=== PATIENT | female | born 1955 | race Two or more races ===

== ENCOUNTER → 2020-08-01 08:15 | Outpatient (BNVA) | payer MEDICARE, MEDICAID, SELFPAY | PROVIDERS: PCP Internal Medicine; Referring Provider Internal Medicine; Visit Provider Physician Assistant | DX: E66.9 Obesity, unspecified (principal); Z68.30 Body mass index [BMI] 30.0-30.9, adult; Z98.84 Bariatric surgery status | CPT/HCPCS: Q3014 ==

== ENCOUNTER → 2020-09-03 08:18 | Outpatient (BNVA) | payer MEDICARE, MEDICAID, SELFPAY | PROVIDERS: PCP Internal Medicine; Referring Provider Internal Medicine; Visit Provider Physician Assistant | DX: Z76.89 Persons encountering health services in other specified circumstances (principal) ==

== ENCOUNTER → 2020-11-21 08:43 | Outpatient (BNVA) | payer MEDICARE, MEDICAID, SELFPAY | PROVIDERS: PCP Internal Medicine; Visit Provider Internal Medicine Endocrinology, Diabetes & Metabolism | DX: Z13.89 Encounter for screening for other disorder (principal) | CPT/HCPCS: Q3014 ==

== ENCOUNTER → 2020-11-28 07:53 | Outpatient (BNVA) | payer MEDICARE, MEDICAID, SELFPAY | PROVIDERS: PCP Internal Medicine; Visit Provider Physician Assistant | DX: E66.9 Obesity, unspecified (principal); Z68.31 Body mass index [BMI] 31.0-31.9, adult; Z90.3 Acquired absence of stomach [part of]; Z71.3 Dietary counseling and surveillance | CPT/HCPCS: Q3014 ==

== ENCOUNTER → 2021-01-23 11:59 | Outpatient (BNVA) | payer MEDICARE, MEDICAID, SELFPAY | PROVIDERS: PCP Internal Medicine; Visit Provider Physician Assistant | DX: E66.9 Obesity, unspecified (principal); Z90.3 Acquired absence of stomach [part of] | CPT/HCPCS: Q3014 ==

== ENCOUNTER → 2021-02-11 10:01 | Outpatient (BNVA) | payer MEDICARE, MEDICAID, SELFPAY | PROVIDERS: PCP Internal Medicine; Referring Provider Internal Medicine; Visit Provider Physician Assistant | DX: E66.9 Obesity, unspecified (principal); Z68.32 Body mass index [BMI] 32.0-32.9, adult; Z90.3 Acquired absence of stomach [part of] | CPT/HCPCS: Q3014 ==

== ENCOUNTER 2021-03-02 10:36 | Outpatient (REF) | payer MEDICARE, MEDICAID, SELFPAY ==
[2021-03-02 11:44] LABS: MANUAL DIFF FLAG NO
[2021-03-02 11:53] LABS: Basophils Absolute Auto 0.1 X10*3/uL (0.0-0.2); Basophils Percent Auto 1.6 % (0-2); Eosinophils Absolute Auto 0.1 X10*3/uL (0.0-0.4); Eosinophils Percent Auto 3.2 % (0-4); Hematocrit 42.4 % (37-47); Hemoglobin 13.5 g/dl (12.0-16.0); Imm Gran Abs Auto 0.01 X10*3/uL (0.00-0.03); Imm Gran Pct Auto 0.3 % (0.0-0.4); Lymphocytes Absolute Auto 1.6 X10*3/uL (1.2-4.9); Lymphocytes Percent Auto 50.8 % (20-40); Mean Corpuscular HGB Conc 31.8 g/dl (31.0-35.0); Mean Corpuscular Hemoglobin 27.4 pg (27.0-33.0); Mean Corpuscular Volume 86.2 fL (80-98); Mean Platelet Volume 10.4 fL (9.4-12.3); Monocytes Absolute Auto 0.2 X10*3/uL (0.1-1.2); Monocytes Percent Auto 5.8 % (2-11); Neutrophils Absolute Auto 1.2 X10*3/uL (2.0-8.3); Neutrophils Percent Auto 38.3 % (45-73); Platelet Count 225 X10*3/uL (160-400); Red Blood Count 4.92 X10*6/uL (4.20-5.50); Red Cell Distribution Width 12.7 % (11.0-16.0); White Blood Count 3.1 X10*3/uL (4.8-10.8)
[2021-03-02 11:58] LABS: Estimated Average Glucose 163 mg/dL; Hemoglobin A1c % 7.3 %
[2021-03-02 12:16] LABS: Alanine Aminotransferase 41 U/L (0-31); Albumin Level 4.1 g/dL (3.5-5.0); Alkaline Phosphatase 112 U/L (39-117); Anion Gap 10 (12-20); Aspartate Amino Transferase 25 U/L (5-31); Bilirubin Total 1.2 mg/dL (0.0-1.0); Blood Urea Nitrogen 14 mg/dL (9-16); Calcium 9.2 mg/dL (8.4-10.2); Carbon Dioxide 30 mmol/L (22-29); Chloride 107 mmol/L (96-108); Cholesterol 204 mg/dL; Estimated Glomerular Filt Rate > 60; Glucose Random 156 mg/dL (60-115); HDL Cholesterol 56 mg/dL; LDL Cholesterol Calculated 127 mg/dl; Potassium 4.2 mmol/L (3.3-5.1); Sodium 143 mmol/L (135-145); Total Protein 6.6 g/dL (6.5-8.0); Triglycerides 105 mg/dL
[2021-03-02 12:27] LABS: Ferritin 88 ng/mL (10-250); TSH reflex Free T4 1.93 uIU/mL (0.32-4.0); Vitamin D 25-OH Total 23.9 ng/mL (>30)
[2021-03-02 12:31] LABS: Free T4 (Free Thyroxine) 0.93 ng/dL (0.71-1.85); Thyroid Stimulating Hormone 1.94 uIU/mL (0.32-4.0)
[2021-03-02 12:39] LABS: Vitamin B12 389 pg/mL (200-900)
[2021-03-02 12:45] LABS: Folate 7.7 ng/mL (> or = 4.0); Vitamin B12 375 pg/mL (200-900)
[2021-03-02 15:09] LABS: Creatinine Urine 30.13 mg/dL; Microalbum/Creatinine Ratio Ur 43.1 ug/mg cr
[2021-03-03 18:32] LABS: Insulin Level Total 7.3 uIU/mL
[2021-03-03 20:06] LABS: LDL Cholesterol Direct 132 mg/dL (<100)
[2021-03-04 10:36] LABS: Calcium (PTHI) 9.3 mg/dL (8.6-10.4); PTHI 75 pg/mL (14-64)
[2021-03-04 23:42] LABS: Zinc 70 mcg/dL (60-130)
[2021-03-06 00:47] LABS: Vitamin A 49 mcg/dL (38-98)
[2021-03-07 13:41] LABS: Vitamin B1 7 nmol/L (8-30)
== END 2021-03-02 10:37 | disposition home or self-care (01) ==
LOC: HO.LAB 10:36
PROVIDERS: Absent Provider Physician Assistant; PCP Internal Medicine; Visit Provider Internal Medicine Endocrinology, Diabetes & Metabolism
DX: E11.42 Type 2 diabetes mellitus with diabetic polyneuropathy (principal); E66.9 Obesity, unspecified; Z90.3 Acquired absence of stomach [part of]
CPT/HCPCS: 36415; 80053; 80061; 82043; 82306; 82607; 82728; 82746; 83036; 83525; 83721; 83970; 84425; 84439; 84443; 84590; 84630; 85025; 86140

== ENCOUNTER 2021-04-11 22:29 | Emergency (ER) | payer MEDICARE, MEDICAID, SELFPAY ==
[2021-04-11 22:45] VITALS: BP 129/79; PULSE 93; RESP 18; TEMP 37.4; O2SAT 100; BMI 30.6
--- NOTE | 2021-04-12 00:19 | ED_ITS ---
HPI - General Adult General Chief complaint: Extremity Problem Stated complaint: rash Time Seen by Provider: 04/11/21 22:51 Source: patient Mode of arrival: EMS Limitations: no limitations History of Present Illness HPI narrative: Patient comes to the emergency room complaining of diffuse rash and hives for 2 days. Patient states that to her knowledge, she has no allergies. Patient states the only thing that she has eaten new was chives. Patient complaining of itchiness in her eyes in her chest, armpits, abdomen, lower extremities. Patient denies shortness of breath, no oropharyngeal edema or foreign body sensation. Patient denies any medications, no new detergents. Patient is only 1 that has hives at home. Related Data Home Medications Medication Instructions Recorded Confirmed chlorthalidone 25 mg tablet 25 mg PO DAILY 08/01/20 02/11/21 enalapril maleate 20 mg tablet 20 mg PO QAM 08/01/20 02/11/21 loratadine 10 mg tablet 10 mg PO QAM 08/01/20 02/11/21 nebivolol 5 mg tablet 5 mg PO DAILY 08/01/20 02/11/21 pregabalin 75 mg capsule 75 mg PO BEDTIME 08/01/20 02/11/21 albuterol sulfate 90 mcg/actuation 2 puff PO Q4-6H PRN 11/21/20 02/11/21 aerosol inhaler blood sugar diagnostic #10 ea 11/21/20 02/11/21 chlorpromazine 200 mg tablet 200 mg PO tab 11/21/20 02/11/21 fluticasone propionate 110 INHALATION 11/21/20 02/11/21 mcg/actuation HFA aerosol inhaler Previous Rx's Medication Instructions Recorded dulaglutide 1.5 mg/0.5 mL 1.5 mg SUBCUT QWEEK 30 Days #2.5 ml 11/21/20 subcutaneous pen injector ezetimibe 10 mg tablet 10 mg PO QAM 90 Days #90 tab 11/21/20 metformin 1,000 mg tablet 1,000 mg PO BID 30 Days #60 tab 11/21/20 rosuvastatin 40 mg tablet 40 mg PO DAILY 90 Days #90 tab 11/21/20 sucralfate 100 mg/mL oral 10 ml PO BID #420 ml 01/23/21 suspension calcium carbonate-vitamin D3 600 1 tab PO BID #60 tab 03/03/21 mg (1,500 mg)-800 unit tablet cholecalciferol (vitamin D3) 50 50 mcg PO DAILY #30 cap 03/03/21 mcg (2,000 unit) capsule [id number]-ads-[id number] acid 0.4 1 tab PO DAILY #30 tab 03/16/21 mg-lycopene 300 mcg-lutein 250 mcg tablet famotidine [Pepcid] 40 mg PO DAILY #4 tab 04/12/21 prednisone 50 mg PO DAILY #4 tab 04/12/21 Allergies Allergy/AdvReac Type Severity Reaction Status Date / Time pollen Allergy Unknown shortness Uncoded 02/26/13 00:00 of breath Pt states no food/medication Allergy Unknown Anaphylaxis Uncoded 02/11/21 10:14 a Review of Systems Review of Systems: Constitutional : No Weight loss, No Fever, No Chills, No Night Sweats, No Fatigue, No Malaise ENT/Mouth : No Hearing loss, No Ear Pain, No Nasal Congestion, No Sinus Pain, No Hoarseness, No sore throat, No Rhinorrhea, No Swallowing Difficulty Eyes: No Eye Pain, No Swelling, No Redness, No Foreign Body, No Discharge, No Vision Changes Cardiovascular : No Chest Pain, No SOB, No Dyspnea on Exertion, No Orthopnea, No Edema, No Palpitations Respiratory : No Cough, No Sputum, No Wheezing, No Smoke Exposure, No Dyspnea Gastrointestinal : No Nausea, No Vomiting, No Diarrhea, No Constipation, No abdominal Pain, No Hematochezia, No Melena Genitourinary : no irregular bleeding, No Dysuria, No Urinary Frequency, No Hematuria, No Urinary Incontinence, No Urgency, No Flank Pain, No Urinary Flow Changes, No Hesitancy Musculoskeletal : No joint pain, No Myalgias, No Joint Swelling Skin : Hives Neuro : No Weakness, No Numbness, No Paresthesias, No Loss of Consciousness, No Dizziness, No Headache Psych : No Anxiety/Panic, No Depression, No SI/HI/AH/VH, No Social Issues, Heme/Lymph: No Bruising, No Bleeding,No Lymphadenopathy Endocrine : No Polyuria, No Polydipsia, No Temperature Intolerance PMFSH Past Medical History Medical History Diabetes type 2, controlled Diabetic polyneuropathy associated with type 2 diabetes mellitus Dyslipidemia History of diverticulosis Hx of diverticulitis of colon Hypertension Vitamin D deficiency Surgical History History of carpal tunnel release History of sleeve gastrectomy Hx of cholecystectomy Hx of colonoscopy Hx of excision of mass Hx of foot surgery Hx of tubal ligation Family History Family History (Updated 07/31/20 @ 09:26 by Kalpana Lyon MA) Father Hypertension Mother No problems noted. Son No problems noted. Son No problems noted. Daughter Hypertension Asthma Obesity Muscle spasm Acute depression Sister No problems noted. Sister No problems noted. Brother No problems noted. Brother No problems noted. Brother No problems noted. Brother No problems noted. Brother No problems noted. Social History Social History (Updated 07/31/20 @ 09:27 by Kalpana Lyon MA) Alcohol intake: never Advance Directives: No Advance Directives Information Provided: Yes Patient : No Physical Exam Vital Signs: Vital Signs: Last Vital Signs Temp 99.3 F 04/11/21 22:45 Pulse 93 04/11/21 22:45 Resp 18 04/11/21 22:45 BP 129/79 04/11/21 22:45 Pulse Ox 100 04/11/21 22:45 Body Mass Index 30.6 Appearance: Alert. Oriented X3. No acute distress. Eyes: Pupils equal, round and reactive to light. ENT: Pharynx normal. No angioedema Neck: Normal inspection. Neck supple. No lymph nodes noted. No crepitus CVS: Normal heart rate and rhythm. Pulses normal. Normal S1 and S2 Respiratory: No respiratory distress. Breath sounds normal. No Wheezing. No rales Abdomen: Soft and nontender. No rigidity. No distention. good BS x4 Skin: Skin warm and dry. Hives in upper and lower extremities, chest back, patient has multiple superficial abrasions due to scratching Extremities: No lower extremity edema. No lower extremity edema. No Lacerations. No Rash Neuro: Oriented X 3. No motor deficit. No sensory deficit. Moving all exter mities. No slurred speech. Course Course Course Narrative: After 1 dose of steroids, Pepcid, patient to home, feels better, still has hives. Patient was given an additional dose of Solu-Medrol with hives improving. Residual hives. Patient will be sent home with a prescription of prednisone for the next couple of days. Unclear what the patient is allergic to. Discharge Plan Discharge Clinical Impression: Hives Patient Disposition: Home, Self-Care Instructions: Urticaria (ED) Additional Instructions: Please follow-up with your primary care physician tomorrow. If you have any worsening or new symptoms, please return to the emergency room or call 911 Prescriptions: New prednisone 50 mg tablet 50 mg PO DAILY Qty: 4 RF: 0 famotidine [Pepcid] 40 mg tablet 40 mg PO DAILY Qty: 4 RF: 0 No Action calcium carbonate-vitamin D3 600 mg(1,500mg) -800 unit tablet 1 tab PO BID Qty: 60 RF: 11 cholecalciferol (vitamin D3) 50 mcg (2,000 unit) capsule 50 mcg PO DAILY Qty: 30 RF: 6 Complete MV Adult 50 Plus 0.4-300-250 mg-mcg-mcg tablet 1 tab PO DAILY Qty: 30 RF: 3 Flovent HFA 110 mcg/actuation HFA aerosol inhaler inhalation RF: 0 (DME) FreeStyle Lite Strips Strip See Rx Instructions ea Not Applicable BID Qty: 10 RF: 0 albuterol sulfate 90 mcg/actuation HFA aerosol inhaler 2 puff PO Q4-6H PRN (Reason: dyspnea) RF: 0 dulaglutide 1.5 mg/0.5 mL pen injector 1.5 mg subcut QWEEK 30 Days Qty: 2.5 RF: 6 metformin 1,000 mg tablet 1,000 mg PO BID 30 Days Qty: 60 RF: 6 ezetimibe 10 mg tablet 10 mg PO QAM 90 Days Qty: 90 RF: 2 rosuvastatin 40 mg tablet 40 mg PO DAILY 90 Days Qty: 90 RF: 1 sucralfate [Carafate] 100 mg/mL suspension 10 ml PO BID Qty: 420 RF: 1 Bystolic 5 mg tablet 5 mg PO DAILY RF: 0 pregabalin 75 mg capsule 75 mg PO BEDTIME RF: 0 loratadine 10 mg tablet 10 mg PO QAM RF: 0 chlorthalidone 25 mg tablet 25 mg PO DAILY RF: 0 enalapril maleate 20 mg tablet 20 mg PO QAM RF: 0 chlorpromazine 200 mg tablet 200 mg PO RF: 0
[2021-04-12] MEDS: methylPREDNISolone Sod Succ 125 MG/2 ML VIAL IVPUSH ×2 (00:26→01:54)
[2021-04-12] MEDS: Famotidine/PF 20 MG/2 ML VIAL IVPUSH (00:26)
[2021-04-12] MEDS: diphenhydrAMINE HCL 50 MG/ML VIAL IVPUSH (00:26)
== END 2021-04-12 02:43 | disposition home or self-care (01) ==
PROVIDERS: Emergency Provider Emergency Medicine
DX: L50.9 Urticaria, unspecified (principal)
CPT/HCPCS: 96374; 96375; 96376; 99283; 99284; J1200; J2930

== ENCOUNTER 2021-09-16 06:26 | Inpatient (IN) | payer MEDICARE, MEDICAID, SELFPAY ==
[2021-09-16] VITALS (12 sets, daily range): BP systolic 97–160; BP diastolic 37–102; PULSE 79–117; RESP 14–24; TEMP 37.1–39.6; O2SAT 92–100; BMI 39.0
--- NOTE | ~2021-09-16 | US_ITS ---
EXAMINATION: US ABDOMEN LIMITED CLINICAL INFORMATION: Elevated LFTs and epigastric pain. COMPARISON: CT abdomen/pelvis done earlier today at 8:15 AM. TECHNIQUE: Real-time imaging of the right upper quadrant abdominal viscera. FINDINGS: PANCREAS: The distal pancreas is obscured by overlying bowel gas. The visualized portions of the pancreatic head and proximal body are within normal limits. LIVER: There is increased hepatic parenchymal echogenicity suggestive of hepatic steatosis. Otherwise, the liver is of normal size and shape without focal abnormalities. No intrahepatic biliary ductal dilatation. GALLBLADDER: Cholecystectomy. COMMON BILE DUCT: Normal in caliber measuring 0.5 cm in diameter. RIGHT KIDNEY: There is a simple cyst in the lower pole measuring up to 6 cm. No hydronephrosis. No renal calculi or focal parenchymal lesions. The kidney measures 13.1 cm in maximum dimension. FREE FLUID: None. US/US abdomen limited IMPRESSION: Hepatic steatosis. Simple cyst in the right kidney. Otherwise, unremarkable examination.
--- NOTE | ~2021-09-16 | CT_ITS ---
EXAMINATION: CT ABDOMEN AND PELVIS WITHOUT CONTRAST CLINICAL INFORMATION: Abdominal pain. History of gastric sleeve procedure. COMPARISON: Fluoroscopic study dating from 11/01/2018. Abdominal ultrasound dated from 06/06/2018. TECHNIQUE: Multidetector volumetric imaging was performed from the superior aspect of the liver through the pubic symphysis. Sagittal and coronal reformatted images were obtained on the technologist's workstation. This CT examination was performed using dose optimization techniques as appropriate, variously including the following: *Automated exposure control *Adjustment of mA and/or kV according to patient size (this includes techniques or standardized protocols for targeted exams where dose is matched to indication/reason for exam; i.e. extremities or head) *Use of iterative reconstruction technique DLP: 723 mGy-cm FINDINGS: LUNG BASES: Mild subsegmental atelectasis. No focal consolidation or pleural effusion. Coronary calcifications. LIVER, GALLBLADDER, AND BILIARY TREE: There is decreased attenuation of the liver suggestive of hepatic steatosis. Otherwise, the liver is normal in size and shape without focal abnormalities. The gallbladder is decompressed and suboptimally visualized. There is no evidence of free fluid or fat stranding in the area of the gallbladder fossa to suggest acute cholecystitis. There is no intrahepatic nor extrahepatic biliary ductal dilatation. PANCREAS: Mildly atrophic without focal abnormalities. The main pancreatic duct is nondilated. SPLEEN: Unremarkable. ADRENAL GLANDS: Unremarkable. KIDNEYS AND URETERS: There are punctate calcifications in the interpolar region of the right kidney at approximately 11.5 cm from the posterior axillary line (5:55). No other nephrolithiasis. No hydronephrosis or hydroureter. In the lateral surface of the mid to lower pole of the left kidney there is an ill-defined and heterogeneous masslike prominence which is very difficult to accurately delineate and measured (coronal images 51 through 52 of series 5). There is associated fat stranding within the left perinephric space with free fluid along the left pararenal space tracking into the paracolic gutter. There is a well-defined and homogeneous water density cyst in the lower pole of the right kidney measuring up to 5.9 cm. BLADDER: Markedly under distended limiting its assessment. GASTROINTESTINAL TRACT: Postsurgical changes from prior gastric sleeve with a small associated hiatal hernia and circumferential thickening of the lower esophagus with internal debris. There are several abnormally dilated loops of jejunum in the left upper and mid abdomen, more noticeable at the level of L4-L5 with air-fluid levels and a diameter that reaches up to 3.1 cm. There is some distortion and swirling of many of these bowel loops in which an internal hernia leading to a small bowel obstruction is suspected. There are no pericolic inflammatory changes. Diverticulosis without evidence of diverticulitis. ABDOMINAL WALL: No significant hernia is appreciated. LYMPH NODES: There are a few prominent left retroperitoneal lymph nodes at the level of the kidneys measuring up to 0.6 cm in maximum short axis which are likely reactive given adjacent inflammatory changes. There are also a few prominent bilateral inguinal lymph nodes of uncertain significance. There is no abdominal or pelvic lymphadenopathy by size criteria. VASCULAR: Scattered atherosclerotic disease. The abdominal aorta is of normal diameter. PELVIC VISCERA: The uterus is anteverted. There is a rounded hyperattenuating lesion inseparable from the right uterine fundus measuring 2.5 cm which likely represent a subserosal fibroid (3:78). The right ovary is not entirely well delineated but appears to be in very close proximity to the right posterior surface of the uterus on image 75 of series 3. The left ovary is high riding and asymmetrically enlarged when compared to the right ovary, best visualized on image 68 of series 3. As There is trace amount of free fluid in the cul-de-sac. OSSEOUS STRUCTURES: No acute or aggressive osseous abnormalities. Thoracolumbar spondylosis. CT/CT abdomen pelvis wo con IMPRESSION: Indeterminate ill-defined abnormality in the lateral surface of the mid to lower pole of the left kidney with surrounding fat stranding and inflammatory changes. Findings could be related with pyelonephritis or early abscess formation in the proper clinical context. Further evaluation with intravenous contrast would be helpful to further characterize these findings. Abnormally dilated loops of jejunum in the left upper and mid abdomen in which an internal hernia leading to a partial small bowel obstruction is suspected. Alternatively, given the inflammatory changes in the left flank, this could represent a reactive focal ileus. Small hiatal hernia with circumferential thickening of the lower esophagus suggesting reflux esophagitis. Diverticulosis. The uterus and adnexa are not entirely well delineated. There is indeterminate asymmetric enlargement of the left ovary which is more superiorly located when compared to the right ovary. Correlate clinically for pain and if indicated consider further evaluation with a pelvic ultrasound. Hepatic steatosis. Nonobstructive right upper pole renal calculi. This critical result was discussed with Dr Rehman at 09/16/2021 10:41 AM and it was ascertained that the content and urgency of the report was understood at the time of direct communication.
--- NOTE | ~2021-09-16 | XR_ITS ---
EXAMINATION: XR CHEST CLINICAL INFORMATION: Cough, fever. COMPARISON: 11/01/2018 chest radiographs. TECHNIQUE: Frontal view of the chest was obtained. FINDINGS: No significant abnormality is noted involving the heart, lungs, mediastinum, bony thorax or soft tissues. XR/XR chest 1V IMPRESSION: No acute cardiopulmonary process.
--- NOTE | ~2021-09-16 | CT_ITS ---
PROCEDURE: CT GUIDED DRAINAGE, RETROPERITONEAL ABSCESS CLINICAL INFORMATION: Left renal mass. COMPARISON: 09/16/2021 TECHNIQUE: CT fluoroscopic left renal drainage catheter placement. This CT examination was performed using dose optimization techniques as appropriate, variously including the following: *Automated exposure control *Adjustment of mA and/or kV according to patient size (this includes techniques or standardized protocols for targeted exams where dose is matched to indication/reason for exam; i.e. extremities or head) *Use of iterative reconstruction technique DLP: 252 mGy-cm FINDINGS: Informed consent was obtained from the patient prior to the procedure. During this process, the procedure and potential alternatives were explained, along with the intended outcome and benefits. The risks of the procedure, as well as the risk of not doing the procedure, were discussed. The patient was given the opportunity to ask questions regarding the procedure and appeared competent to make medical decisions. A signed consent form which documents this discussion was placed in the medical record. Using CT fluoroscopic guidance and sterile technique a 5 Emir[place] Yueh needle was directed down into the low density portion of the left renal mass. A small amount of purulent material was aspirated for culture. Guidewire was coiled in a very small cavity without much purchase and therefore a small, 6.3 Emirati drainage catheter was placed over the guidewire. A total of 8 mL of the purulent-appearing fluid was removed. Patient tolerated procedure without difficulty. The catheter was left to Abran-Colby bulb drainage. Would flush catheter with 5 mL sterile saline every shift until clear return. CT/CT drain retroperitoneal IMPRESSION: 6.3 Emir[place] catheter placement into left renal abscess/pyelonephritis region. Sample of purulent-appearing fluid sent for culture.
--- NOTE | ~2021-09-16 | IR_ITS ---
EXAMINATION: The pigtail drainage catheter in the left kidney was removed.
--- NOTE | ~2021-09-16 | CT_ITS ---
EXAMINATION: CT ABDOMEN AND PELVIS WITH CONTRAST CLINICAL INFORMATION: Abnormal finding on CT without contrast COMPARISON: CT of September 16, 2021 and ultrasound of same day. TECHNIQUE: Multidetector volumetric images were obtained from the superior aspect of the liver through the pubic symphysis following administration 85 mL of Omnipaque 350 intravenous contrast. Sagittal and coronal reformatted images were obtained on the technologist's workstation. Oral contrast: No This CT examination was performed using dose optimization techniques as appropriate, variously including the following: *Automated exposure control *Adjustment of mA and/or kV according to patient size (this includes techniques or standardized protocols for targeted exams where dose is matched to indication/reason for exam; i.e. extremities or head) *Use of iterative reconstruction technique DLP: 741 mGy-cm FINDINGS: LUNG BASES: No significant lung base abnormalities appreciated. No pleural or pericardial effusion. LIVER, GALLBLADDER, AND BILIARY TREE: The liver is normal in size, shape, and attenuation. No focal hepatic lesion or biliary ductal dilatation is present. Gallbladder is not identified and patient is likely status post cholecystectomy. PANCREAS: Unremarkable. SPLEEN: Unremarkable. ADRENAL GLANDS: Unremarkable. KIDNEYS AND URETERS: Right kidney: There is a large right renal lower pole cyst present measuring approximately 6.3 x 6.1 cm in size. No hydronephrosis. There is a 3 mm nonobstructive calculus present interpolar region approximately 8 cm from the mid posterior axillary line. Mild perinephric stranding. The ureter appears unremarkable. Left kidney: About the interpolar region of the left kidney there is a complex hypoechoic region some of which appears to represent a cyst but with other portions appearing to involve cortical tissue. The cystic portion measures approximately 3.8 x 2.5 x 2.8 cm in size and has septation within it. The adjacent parenchymal low density is suspicious for pyelonephritis. There is some adjacent fat stranding as well as a small amount of fluid along the left paracolic gutter. No hydronephrosis. Left ureter appears unremarkable. BLADDER: Unremarkable. GASTROINTESTINAL TRACT: No free air or significant free fluid. No dilated loops of large or small bowel. There are a few fluid-filled distended loops of small bowel in the left upper quadrant measuring up to approximately 2.7 cm in diameter and are adjacent to the left perinephric area in appearance may be related to localized ileus rather than small bowel obstruction. Patient status post gastric surgery. There is a small hiatal hernia present. Appendix is not definitely identified however there are are no signs of acute appendicitis. ABDOMINAL WALL: No significant hernia is appreciated. LYMPH NODES: There are numerous but not pathologically enlarged lymph nodes in the left periaortic region at the level of the left kidney. VASCULAR: Unremarkable. PELVIC VISCERA: Unremarkable. OSSEOUS STRUCTURES: No suspicious destructive bony lesions identified. There is degenerative disc see seen at the L5-S1 level. Changes of enthesopathy seen about the pelvis. CT/CT abdomen pelvis w con IMPRESSION: Findings suspicious for left pyelonephritis and question infected adjacent cyst and less likely abscess. Probable localized small bowel ileus left abdomen. Fleischner guidelines were followed.
--- NOTE | 2021-09-16 07:05 | ECG_ITS ---
Test Reason : NAUSEA
--- NOTE | 2021-09-16 07:08 | ED.ABDPAIN ---
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 Upper abdominal pain started 5 days ago, pain described as constant, dull and aching, 5 out of 10 in severity, pain radiates to the back mostly left-sided flank area, nothing aggravated pain, nothing relieves the pain. Pain is associated with nausea but no vomiting and subjective fever, stated that she has been having urinary frequency, with bad odor urine. No other sick contacts, patient had 2 COVID vaccinations. Also family noted that patient is lethargic and more sleeping than her normal. <Alvino Rehman MD - Last Filed: 09/16/21 22:21> Related Data Home Medications: Home Medications Medication Instructions Recorded Confirmed chlorthalidone 25 mg tablet 25 mg PO DAILY 08/01/20 09/16/21 enalapril maleate 20 mg tablet 20 mg PO DAILY 08/01/20 09/16/21 loratadine 10 mg tablet 10 mg PO DAILY 08/01/20 09/16/21 nebivolol 5 mg tablet 5 mg PO DAILY 08/01/20 09/16/21 pregabalin 75 mg capsule 75 mg PO BEDTIME 08/01/20 09/16/21 albuterol sulfate 90 mcg/actuation 2 puff PO Q4-6H PRN 11/21/20 09/16/21 aerosol inhaler blood sugar diagnostic #10 ea 11/21/20 09/16/21 fluticasone propionate 110 1 puff INHALATION BID 11/21/20 09/16/21 mcg/actuation HFA aerosol inhaler dulaglutide 1.5 mg/0.5 mL 1.5 mg SUBCUT MO@0900 09/16/21 09/16/21 subcutaneous pen injector oxycodone-acetaminophen 5 mg-325 1 tab PO Q8H PRN 09/16/21 09/16/21 mg tablet pantoprazole 40 mg tablet,delayed 1 tab PO QAM 09/16/21 09/16/21 release rosuvastatin 40 mg tablet 40 mg PO BEDTIME 09/16/21 09/16/21 Previous Rx's Medication Instructions Recorded ezetimibe 10 mg tablet 10 mg PO QAM 90 Days #90 tab 11/21/20 calcium carbonate 600 mg-vitamin 1 tab PO BID #60 tab 03/03/21 D3 20 mcg (800 unit) tablet cholecalciferol (vitamin D3) 50 50 mcg PO DAILY #30 cap 03/03/21 mcg (2,000 unit) capsule nnikqlew-lpl-ncktn acid 0.4 1 tab PO DAILY #30 tab 03/16/21 mg-lycopene 300 mcg-lutein 250 mcg tablet (Complete Multivitamin Adult 50 Plus) famotidine 40 mg tablet (Pepcid) 40 mg PO DAILY #4 tab 04/12/21 metformin 1,000 mg tablet 1,000 mg PO BID 30 Days #60 tab 07/07/21 <Alvino Rehman MD - Last Filed: 09/16/21 22:21> Allergies/Adverse Reactions: Allergies Allergy/AdvReac Type Severity Reaction Status Date / Time pollen Allergy Unknown shortness Uncoded 02/26/13 00:00 of breath Pt states no food/medication Allergy Unknown Anaphylaxis Uncoded 02/11/21 10:14 a <Alvino Rehman MD - Last Filed: 09/16/21 22:21> Review of Systems Review of Systems All other systems are reviewed and are negative Constitutional: Reports as per HPI and Reports no additional constitutional complaints Eyes: Reports as per HPI and Reports no additional eye complaints Reports system reviewed and no additional complaints, except as documented Cardiovascular: Reports as per HPI and Reports no additional cardiovascular complaints Respiratory: Reports as per HPI and Reports no additional respiratory complaints Gastrointestinal: Reports as per HPI and Reports no additional gastrointestinal complaints Genitourinary: Reports no additional female genitourinary complaints Musculoskeletal: Reports no additional musculoskeletal complaints Skin/Breast: Reports system reviewed and no additional complaints, except as docu Psychiatric: Reports no additional psychiatric complaints Endocrine: Reports no additional endocrine complaints Hematologic/Lymphatic: Reports no additional hematologic/lymphatic complaints Allergic/Immunologic: Reports no additional allergic/immunologic complaints Reports system reviewed and no additional complaints, except as documented and Reports Abnormal speech present <Alvino Rehman MD - Last Filed: 09/16/21 22:21> Physical Exam Vital Signs: Vital Signs: Last Vital Signs Temp 98.2 F 09/17/21 06:21 Pulse 99 09/17/21 06:21 Resp 20 09/17/21 06:21 BP 97/41 L 09/17/21 06:21 Pulse Ox 98 09/17/21 03:40 BMI result Body Mass Index 39.0 Vital signs have been reviewed as appeared to be correct. Blood pressure normal. Heart rate elevated. Respiration rate normal. Temperature elevated. Oxygen saturation normal. <Alvino Rehman MD - Last Filed: 09/16/21 22:21> Vital Signs: Last Vital Signs Temp 98.2 F 09/17/21 06:21 Pulse 99 09/17/21 06:21 Resp 20 09/17/21 06:21 BP 97/41 L 09/17/21 06:21 Pulse Ox 98 09/17/21 03:40 BMI result Body Mass Index 39.0 <Prateek De Leon MD - Last Filed: 09/17/21 02:24> Vital Signs: Last Vital Signs Temp 98.2 F 09/17/21 06:21 Pulse 99 09/17/21 06:21 Resp 20 09/17/21 06:21 BP 97/41 L 09/17/21 06:21 Pulse Ox 98 09/17/21 03:40 BMI result Body Mass Index 39.0 <Tasneem Meade DO - Last Filed: 09/17/21 06:46> Appearance: Alert. Oriented X3. No acute distress. Head: Normal external exam. Normocephalic. Atraumatic. No Gonzales signs noted. No raccoon eyes noted Eyes: PERRLA. EOMI. Conjunctiva and sclera normal. Eyelids normal. ENT: TM's Normal. Pharynx normal. Uvula midline. Moist mucous membranes. No trismus noted. No drooling noted. No muffled voice noted. Neck: Normal inspection. Neck supple. FROM. No adenopathy. Thyroid Normal. No meningeal signs. No neck mass noted. CVS: Normal heart rate and rhythm. Heart sound normal. No murmurs noted. Pulses normal throughout. Respiratory: No respiratory distress. Painless inspiration. Breath sounds normal. No wheezes/rales/rhonchi noted. Chest nontender. No accessory muscle usage noted or decreased air movement noted. Abdomen: Soft, mild epigastric tenderness, no rebound tenderness, no guarding. Bowel sounds normal in all 4 quadrants. No distention noted. No organomegaly noted. No visible injury noted. Back: Left CVA tenderness. Full range of motion noted. Skin: Skin warm and dry. Normal skin color. Normal skin turgor. No rashes/lesions/lacerations noted. Extremities: No lower extremity edema. Extremities exhibit normal range of motion. Extremities nontender. Neuro: Oriented X 3. Cranial nerve exam: II-XII are grossly intact No motor deficit. No sensory deficit. Reflexes normal. <Alvino Rehman MD - Last Filed: 09/16/21 22:21> Course Course Course Narrative: Assessment and plan. 66-year-old female came in with fever, back pain, patient require multiple radiographic studies to confirm diagnosis of possible left kidney infection versus abscess. Patient meet criteria for SIRS by fever and tachycardia. BUT NO LEUKOCYTOSIS, and normal lactic acid. Otherwise no source of infection found until had a CT with IV contrast which is questioning left kidney cystic lesion that could be an abscess. Case discussed with IR Dr. camilo who will schedule patient for IR drainage of the left kidney cystic lesion [facility] but because of the short staff patient is scheduled tomorrow 10:30 am.. Patient meanwhile will get broad coverage antibiotic with ceftriaxone, Zosyn, and vanco. the patient need for multiple radiographic studies to establish the final diagnosis delayed the adminstration of antibiotic. Elevated troponin case discussed with , elevated troponin is likely related to patient's fever patient has no chest pain, and EKG is unremarkable for ischemic change. CT read for possible SBO, consult to Dr. Cano/bariatric surgery both agreed patient not likely to have SBO. <Alvino Rehman MD - Last Filed: 09/16/21 22:21> Reevaluation(s) Reevaluation #1: IR drainage of the left kidney mass was postponed till tomorrow because short staff, multiple attempt and phone calls to transfer the patient out of [facility] no service converage and IR not available now at [facility]. the case was discussed with the transfering service of [facility], [facility], [facility], [place], and [facility] all are closed for transfer, unfortunately the only option for this patient is to keep her scheduled drainage by IR at 10:30 tomorrow morning, cover with antibiotic,IV fluids , control her fever, and keep her in the ED until the procedure take place tomorrow, hoping for the best outcome for this patient. 1750: Physician observation started at 1750. I assumed care of this patient from my colleague,. The patient presented with abdominal pain, fever and CT scan of the abdomen pelvis revealed the following: Indeterminate ill-defined abnormality in the lateral surface of the mid to lower pole of the left kidney with surrounding fat stranding and inflammatory changes. Findings could be related with pyelonephritis or early abscess formation in the proper clinical context . Please see Dr. Monk is notes, there is no urology coverage and Interventional Radiology was unable to attempt to drain the abscess today but they are available tomorrow. Hospitalist declined admission since we had lack of services. Given the pandemic, Dr. Monk was not able to find a hospital that would accept the patient in transfer. Therefore the patient will be kept in the emergency department and managed under physician observation. I did order med rec on this patient and will order her outpatient medications when this is available. The patient will be treated with vancomycin 1000 mg q.12 hours, Zosyn 3.37 g IV q.6 hours and ceftriaxone 1 g IV Q 24 hours. I ordered lactated Ringer's at 125 cc/hour. I ordered a point of care glucose q.i.d. and we will treat her glucose as appropriate. I ordered a surgical consult and an Interventional Radiology consult as well. The patient will be kept NPO. At this time, the patient is resting comfortably, lungs were clear, heart exam regular rate rhythm, abdomen left lower abdominal tenderness with normoactive bowel sounds, neurologic exam was nonfocal. 2039: Physician observation continued: The patient had a fever of 101.0? F. pulse was 80, respiratory 20, O2 saturation 100% on room air blood pressure 116/53. I did review the patient's medications, this time will hold her insulin and follow her blood sugars treat her with Humalog subcutaneously as needed. I did order her albuterol inhaler 2 puffs every 4-6 hours as needed and her Flovent inhaler twice a day. Patient is here was treated with Tylenol 975 mg orally. 2118: Physician observation continued: The patient's blood cultures grew Gram-negative bulmaro in both aerobic bottles and Gram-negative rods in both anaerobic bottles. The patient's blood pressures remained stable with no hypotension. Patient has received 1/2 L of normal saline and is currently getting lactated Ringer's at 125 mL/hr. I will stop the patient's vancomycin given that she is growing Gram-negative rods in her blood. I will continue the patient's Zosyn and ceftriaxone. Patient's physical examination is unchanged. <Alvino Rehman MD - Last Filed: 09/16/21 22:21> IR drainage of the left kidney mass was postponed till tomorrow because short staff, multiple attempt and phone calls to transfer the patient out of [facility] no service converage and IR not available now at [facility]. the case was discussed with the transfering service of [facility], [facility], [facility], and [facility] all are closed for transfer, unfortunately the only option for this patient is to keep her scheduled drainage by IR at 10:30 tomorrow morning, cover with antibiotic,IV fluids , control her fever, and keep her in the ED until the procedure take place tomorrow, hoping for the best outcome for this patient. 1750: Physician observation started at 1750. I assumed care of this patient from my colleague,. The patient presented with abdominal pain, fever and CT scan of the abdomen pelvis revealed the following: Indeterminate ill-defined abnormality in the lateral surface of the mid to lower pole of the left kidney with surrounding fat stranding and inflammatory changes. Findings could be related with pyelonephritis or early abscess formation in the proper clinical context . Please see Dr. Lacho aldridge notes, there is no urology coverage and Interventional Radiology was unable to attempt to drain the abscess today but they are available tomorrow. Hospitalist declined admission since we had lack of services. Given the pandemic, Dr. Monk was not able to find a hospital that would accept the patient in transfer. Therefore the patient will be kept in the emergency department and managed under physician observation. I did order med rec on this patient and will order her outpatient medications when this is available. The patient will be treated with vancomycin 1000 mg q.12 hours, Zosyn 3.37 g IV q.6 hours and ceftriaxone 1 g IV Q 24 hours. I ordered lactated Ringer's at 125 cc/hour. I ordered a point of care glucose q.i.d. and we will treat her glucose as appropriate. I ordered a surgical consult and an Interventional Radiology consult as well. The patient will be kept NPO. At this time, the patient is resting comfortably, lungs were clear, heart exam regular rate rhythm, abdomen left lower abdominal tenderness with normoactive bowel sounds, neurologic exam was nonfocal. 2039: Physician observation continued: The patient had a fever of 101.0? F. pulse was 80, respiratory 20, O2 saturation 100% on room air blood pressure 116/53. I did review the patient's medications, this time will hold her insulin and follow her blood sugars treat her with Humalog subcutaneously as needed. I did order her albuterol inhaler 2 puffs every 4-6 hours as needed and her Flovent inhaler twice a day. Patient is here was treated with Tylenol 975 mg orally. 2118: Physician observation continued: The patient's blood cultures grew Gram-negative bulmaro in both aerobic bottles and Gram-negative rods in both anaerobic bottles. The patient's blood pressures remained stable with no hypotension. Patient has received 1/2 L of normal saline and is currently getting lactated Ringer's at 125 mL/hr. I will stop the patient's vancomycin given that she is growing Gram-negative rods in her blood. I will continue the patient's Zosyn and ceftriaxone. Patient's physical examination is unchanged. 09/17/2021: 0213 physician observation continued: Physician observation continued: The patient had 1 low map of 59 which was treated with lactated Ringer's 500 cc bolus with improvement of her blood pressure. The patient continues on LR at 125 mL/hr. At the end of my shift, the patient remains stable. Patient's care was turned over to my colleague, Dr. Quijano. <Prateek De Leon MD - Last Filed: 09/17/21 02:24> IR drainage of the left kidney mass was postponed till tomorrow because short staff, multiple attempt and phone calls to transfer the patient out of [facility] no service converage and IR not available now at [facility]. the case was discussed with the transfering service of [facility], [facility], [facility], [place], and [facility] all are closed for transfer, unfortunately the only option for this patient is to keep her scheduled drainage by IR at 10:30 tomorrow morning, cover with antibiotic,IV fluids , control her fever, and keep her in the ED until the procedure take place tomorrow, hoping for the best outcome for this patient. 1750: Physician observation started at 1750. I assumed care of this patient from my colleague,. The patient presented with abdominal pain, fever and CT scan of the abdomen pelvis revealed the following: Indeterminate ill-defined abnormality in the lateral surface of the mid to lower pole of the left kidney with surrounding fat stranding and inflammatory changes. Findings could be related with pyelonephritis or early abscess formation in the proper clinical context . Please see Dr. Monk is notes, there is no urology coverage and Interventional Radiology was unable to attempt to drain the abscess today but they are available tomorrow. Hospitalist declined admission since we had lack of services. Given the pandemic, Dr. Monk was not able to find a hospital that would accept the patient in transfer. Therefore the patient will be kept in the emergency department and managed under physician observation. I did order med rec on this patient and will order her outpatient medications when this is available. The patient will be treated with vancomycin 1000 mg q.12 hours, Zosyn 3.37 g IV q.6 hours and ceftriaxone 1 g IV Q 24 hours. I ordered lactated Ringer's at 125 cc/hour. I ordered a point of care glucose q.i.d. and we will treat her glucose as appropriate. I ordered a surgical consult and an Interventional Radiology consult as well. The patient will be kept NPO. At this time, the patient is resting comfortably, lungs were clear, heart exam regular rate rhythm, abdomen left lower abdominal tenderness with normoactive bowel sounds, neurologic exam was nonfocal. 2039: Physician observation continued: The patient had a fever of 101.0? F. pulse was 80, respiratory 20, O2 saturation 100% on room air blood pressure 116/53. I did review the patient's medications, this time will hold her insulin and follow her blood sugars treat her with Humalog subcutaneously as needed. I did order her albuterol inhaler 2 puffs every 4-6 hours as needed and her Flovent inhaler twice a day. Patient is here was treated with Tylenol 975 mg orally. 2118: Physician observation continued: The patient's blood cultures grew Gram-negative bulmaro in both aerobic bottles and Gram-negative rods in both anaerobic bottles. The patient's blood pressures remained stable with no hypotension. Patient has received 1/2 L of normal saline and is currently getting lactated Ringer's at 125 mL/hr. I will stop the patient's vancomycin given that she is growing Gram-negative rods in her blood. I will continue the patient's Zosyn and ceftriaxone. Patient's physical examination is unchanged. 09/17/2021: 0213 physician observation continued: Physician observation continued: The patient had 1 low map of 59 which was treated with lactated Ringer's 500 cc bolus with improvement of her blood pressure. The patient continues on LR at 125 mL/hr. At the end of my shift, the patient remains stable. Patient's care was turned over to my colleague, Dr. Quijano. 09/17/21 0644am Patient with stable VS. On IVF, abx ordered. Plan in place from prior providers including anbiotics, NPO, plan for IR drainage at 1030am today. Patient has GNR bacteremia. At this time will discuss with oncoming team why patient is not admittted given plan in place and she has been stable overnight. Up and walking to the bathroom on her own as well. Cardiology and surgery have been consulted as well during her surgical stay. <Tasneem Meade DO - Last Filed: 09/17/21 06:46> Time: 17:25 <Alvino Rehman MD - Last Filed: 09/16/21 22:21> MDM - Abdominal Pain Medical Records Attestation: I reviewed the patient's medical records. <Alvino Rehman MD - Last Filed: 09/16/21 22:21> Lab Data Attestation: I reviewed the patient's lab results. <Alvino Rehman MD - Last Filed: 09/16/21 22:21> Result diagrams: : 09/16/21 07:39 09/16/21 07:39 <Alvino Rehman MD - Last Filed: 09/16/21 22:21> Labs: Lab Results 09/16/21 09/16/21 09/16/21 Range/Units 06:56 07:39 07:39 WBC 7.7 (4.8-10.8) X10*3/uL RBC 4.45 (4.20-5.50) X10*6/uL Hgb 12.5 (12.0-16.0) g/dl Hct 37.7 (37.0-47.0) % MCV 84.7 (80.0-98.0) fL MCH 28.1 (27.0-33.0) pg MCHC 33.2 (31.0-35.0) g/dl RDW 12.7 (11.0-16.0) % Plt Count 210 (160-400) X10*3/uL MPV 10.1 (9.4-12.3) fL Immature Gran % (Auto) Cancelled Neut % (Auto) Cancelled Lymph % (Auto) Cancelled [place] % (Auto) Cancelled Eos % (Auto) Cancelled Baso % (Auto) Cancelled Lymph # (Auto) Cancelled [place] # (Auto) Cancelled Eos # (Auto) Cancelled Baso # (Auto) Cancelled Abs Immat Gran (auto) Cancelled Absolute Neuts (auto) Cancelled Absolute Nucleated RBC 0.000 (0.0-0.012) X10*3/uL Nucleated RBC % (auto) 0.0 (0.0-0.2) /100WBC Neutrophils % (Manual) 70 (45-73) % Band Neutrophils % 22 H (3-5) % Lymphocytes % (Manual) 6 L (20-40) % Monocytes % (Manual) 2 (2-11) % Abs Neuts (Manual) 7.1 (2.0-8.3) X10*3/uL Lymphocytes # (Manual) 0.5 L (1.2-4.9) X10*3/uL Monocytes # (Manual) 0.2 (0.1-1.2) X10*3/uL Toxic Vacuolation PRESENT Dohle Bodies PRESENT Platelet Estimate NORMAL (NORMAL) Plt Morphology Comment NORMAL RBC Morphology NORMAL PT (9.9-13.0) SEC INR (0.9-1.1) APTT (24.1-38.0) SEC Sodium 139 (135-145) mmol/L Potassium 3.3 D (3.3-5.1) mmol/L Chloride 103 (96-108) mmol/L Carbon Dioxide 23 (22-29) mmol/L Anion Gap 16 (12-20) BUN 10 (9-16) mg/dL Creatinine 0.80 (0.5-1.4) mg/dL Estim Creat Clear Calc 80.1 Estimated GFR > 60 POC Glucose (60-115) mg/dL Random Glucose 302 H (60-115) mg/dL Lactic Acid (0.5-2.0) mmol/L Calcium 8.7 (8.4-10.2) mg/dL Total Bilirubin 3.0 H (0.0-1.0) mg/dL Direct Bilirubin 1.6 H (0.0-0.5) mg/dL AST 69 H (5-31) U/L ALT 72 H (0-31) U/L Alkaline Phosphatase 232 H D (39-117) U/L Troponin I High Sens (<3.5-17.0) ng/L B-Natriuretic Peptide (<100) pg/mL Total Protein 6.0 L (6.5-8.0) g/dL Albumin 3.4 L (3.5-5.0) g/dL Lipase 6 L (8-78) U/L Urine Color Urine Appearance Urine pH (5.0-8.0) Ur Specific [place] (1.005-1.025) Urine Protein (NEG-TRACE) MG/DL Urine Glucose (UA) (NEG) MG/DL Urine Ketones (NEG) MG/DL Urine Blood (NEG) Urine Nitrite (NEG) Ur Leukocyte Esterase (NEG) Urine RBC (0) /HPF Urine WBC (0-4) /HPF Ur Squamous Epith Cells /LPF Urine Bacteria /LPF COVID-19 (MELANY) Negative (Negative) COVID-19 Clin Com See Note 09/16/21 09/16/21 09/16/21 Range/Units 07:39 07:39 07:39 WBC (4.8-10.8) X10*3/uL RBC (4.20-5.50) X10*6/uL Hgb (12.0-16.0) g/dl Hct (37.0-47.0) % MCV (80.0-98.0) fL MCH (27.0-33.0) pg MCHC (31.0-35.0) g/dl RDW (11.0-16.0) % Plt Count (160-400) X10*3/uL MPV (9.4-12.3) fL Immature Gran % (Auto) Neut % (Auto) Lymph % (Auto) [place] % (Auto) Eos % (Auto) Baso % (Auto) Lymph # (Auto) [place] # (Auto) Eos # (Auto) Baso # (Auto) Abs Immat Gran (auto) Absolute Neuts (auto) Absolute Nucleated RBC (0.0-0.012) X10*3/uL Nucleated RBC % (auto) (0.0-0.2) /100WBC Neutrophils % (Manual) (45-73) % Band Neutrophils % (3-5) % Lymphocytes % (Manual) (20-40) % Monocytes % (Manual) (2-11) % Abs Neuts (Manual) (2.0-8.3) X10*3/uL Lymphocytes # (Manual) (1.2-4.9) X10*3/uL Monocytes # (Manual) (0.1-1.2) X10*3/uL Toxic Vacuolation Dohle Bodies Platelet Estimate (NORMAL) Plt Morphology Comment RBC Morphology PT (9.9-13.0) SEC INR (0.9-1.1) APTT (24.1-38.0) SEC Sodium (135-145) mmol/L Potassium (3.3-5.1) mmol/L Chloride (96-108) mmol/L Carbon Dioxide (22-29) mmol/L Anion Gap (12-20) BUN (9-16) mg/dL Creatinine (0.5-1.4) mg/dL Estim Creat Clear Calc Estimated GFR POC Glucose (60-115) mg/dL Random Glucose (60-115) mg/dL Lactic Acid 1.7 (0.5-2.0) mmol/L Calcium (8.4-10.2) mg/dL Total Bilirubin (0.0-1.0) mg/dL Direct Bilirubin (0.0-0.5) mg/dL AST (5-31) U/L ALT (0-31) U/L Alkaline Phosphatase (39-117) U/L Troponin I High Sens 23.2 H (<3.5-17.0) ng/L B-Natriuretic Peptide 15 (<100) pg/mL Total Protein (6.5-8.0) g/dL Albumin (3.5-5.0) g/dL Lipase (8-78) U/L Urine Color Urine Appearance Urine pH (5.0-8.0) Ur Specific [place] (1.005-1.025) Urine Protein (NEG-TRACE) MG/DL Urine Glucose (UA) (NEG) MG/DL Urine Ketones (NEG) MG/DL Urine Blood (NEG) Urine Nitrite (NEG) Ur Leukocyte Esterase (NEG) Urine RBC (0) /HPF Urine WBC (0-4) /HPF Ur Squamous Epith Cells /LPF Urine Bacteria /LPF COVID-19 ([facility]ANY) (Negative) COVID-19 Clin Com 09/16/21 09/16/21 09/16/21 Range/Units 08:07 10:30 16:18 WBC (4.8-10.8) X10*3/uL RBC (4.20-5.50) X10*6/uL Hgb (12.0-16.0) g/dl Hct (37.0-47.0) % MCV (80.0-98.0) fL MCH (27.0-33.0) pg MCHC (31.0-35.0) g/dl RDW (11.0-16.0) % Plt Count (160-400) X10*3/uL MPV (9.4-12.3) fL Immature Gran % (Auto) Neut % (Auto) Lymph % (Auto) [place] % (Auto) Eos % (Auto) Baso % (Auto) Lymph # (Auto) [place] # (Auto) Eos # (Auto) Baso # (Auto) Abs Immat Gran (auto) Absolute Neuts (auto) Absolute Nucleated RBC (0.0-0.012) X10*3/uL Nucleated RBC % (auto) (0.0-0.2) /100WBC Neutrophils % (Manual) (45-73) % Band Neutrophils % (3-5) % Lymphocytes % (Manual) (20-40) % Monocytes % (Manual) (2-11) % Abs Neuts (Manual) (2.0-8.3) X10*3/uL Lymphocytes # (Manual) (1.2-4.9) X10*3/uL Monocytes # (Manual) (0.1-1.2) X10*3/uL Toxic Vacuolation Dohle Bodies Platelet Estimate (NORMAL) Plt Morphology Comment RBC Morphology PT 12.4 (9.9-13.0) SEC INR 1.1 (0.9-1.1) APTT 29.2 (24.1-38.0) SEC Sodium (135-145) mmol/L Potassium (3.3-5.1) mmol/L Chloride (96-108) mmol/L Carbon Dioxide (22-29) mmol/L Anion Gap (12-20) BUN (9-16) mg/dL Creatinine (0.5-1.4) mg/dL Estim Creat Clear Calc Estimated GFR POC Glucose (60-115) mg/dL Random Glucose (60-115) mg/dL Lactic Acid (0.5-2.0) mmol/L Calcium (8.4-10.2) mg/dL Total Bilirubin (0.0-1.0) mg/dL Direct Bilirubin (0.0-0.5) mg/dL AST (5-31) U/L ALT (0-31) U/L Alkaline Phosphatase (39-117) U/L Troponin I High Sens 65.4 H* D (<3.5-17.0) ng/L B-Natriuretic Peptide (<100) pg/mL Total Protein (6.5-8.0) g/dL Albumin (3.5-5.0) g/dL Lipase (8-78) U/L Urine Color YELLOW Urine Appearance CLEAR Urine pH 6.0 (5.0-8.0) Ur Specific [place] 1.015 (1.005-1.025) Urine Protein 1+ H (NEG-TRACE) MG/DL Urine Glucose (UA) >=1000 H (NEG) MG/DL Urine Ketones >=80 (NEG) MG/DL Urine Blood TRACE (NEG) Urine Nitrite NEG (NEG) Ur Leukocyte Esterase NEG (NEG) Urine RBC 0-2 (0) /HPF Urine WBC 0-2 (0-4) /HPF Ur Squamous Epith Cells TRACE /LPF Urine Bacteria 2+ /LPF COVID-19 ([facility]) (Negative) COVID-19 Clin [facility] 09/16/21 09/16/21 09/16/21 Range/Units 16:18 18:08 21:42 WBC (4.8-10.8) X10*3/uL RBC (4.20-5.50) X10*6/uL Hgb (12.0-16.0) g/dl Hct (37.0-47.0) % MCV (80.0-98.0) fL MCH (27.0-33.0) pg MCHC (31.0-35.0) g/dl RDW (11.0-16.0) % Plt Count (160-400) X10*3/uL MPV (9.4-12.3) fL Immature Gran % (Auto) Neut % (Auto) Lymph % (Auto) [place] % (Auto) Eos % (Auto) Baso % (Auto) Lymph # (Auto) [place] # (Auto) Eos # (Auto) Baso # (Auto) Abs Immat Gran (auto) Absolute Neuts (auto) Absolute Nucleated RBC (0.0-0.012) X10*3/uL Nucleated RBC % (auto) (0.0-0.2) /100WBC Neutrophils % (Manual) (45-73) % Band Neutrophils % (3-5) % Lymphocytes % (Manual) (20-40) % Monocytes % (Manual) (2-11) % Abs Neuts (Manual) (2.0-8.3) X10*3/uL Lymphocytes # (Manual) (1.2-4.9) X10*3/uL Monocytes # (Manual) (0.1-1.2) X10*3/uL Toxic Vacuolation Dohle Bodies Platelet Estimate (NORMAL) Plt Morphology Comment RBC Morphology PT (9.9-13.0) SEC INR (0.9-1.1) APTT (24.1-38.0) SEC Sodium (135-145) mmol/L Potassium (3.3-5.1) mmol/L Chloride (96-108) mmol/L Carbon Dioxide (22-29) mmol/L Anion Gap (12-20) BUN (9-16) mg/dL Creatinine (0.5-1.4) mg/dL Estim Creat Clear Calc Estimated GFR POC Glucose 246 H 222 H (60-115) mg/dL Random Glucose (60-115) mg/dL Lactic Acid (0.5-2.0) mmol/L Calcium (8.4-10.2) mg/dL Total Bilirubin (0.0-1.0) mg/dL Direct Bilirubin (0.0-0.5) mg/dL AST (5-31) U/L ALT (0-31) U/L Alkaline Phosphatase (39-117) U/L Troponin I High Sens 60.4 H* (<3.5-17.0) ng/L B-Natriuretic Peptide (<100) pg/mL Total Protein (6.5-8.0) g/dL Albumin (3.5-5.0) g/dL Lipase (8-78) U/L Urine Color Urine Appearance Urine pH (5.0-8.0) Ur Specific [place] (1.005-1.025) Urine Protein (NEG-TRACE) MG/DL Urine Glucose (UA) (NEG) MG/DL Urine Ketones (NEG) MG/DL Urine Blood (NEG) Urine Nitrite (NEG) Ur Leukocyte Esterase (NEG) Urine RBC (0) /HPF Urine WBC (0-4) /HPF Ur Squamous Epith Cells /LPF Urine Bacteria /LPF COVID-19 ([facility]ANY) (Negative) COVID-19 Clin Com <Alvino Rehman MD - Last Filed: 09/16/21 22:21> Lab Results 09/16/21 09/16/21 09/16/21 Range/Units 06:56 07:39 07:39 WBC 7.7 (4.8-10.8) X10*3/uL RBC 4.45 (4.20-5.50) X10*6/uL Hgb 12.5 (12.0-16.0) g/dl Hct 37.7 (37.0-47.0) % MCV 84.7 (80.0-98.0) fL MCH 28.1 (27.0-33.0) pg MCHC 33.2 (31.0-35.0) g/dl RDW 12.7 (11.0-16.0) % Plt Count 210 (160-400) X10*3/uL MPV 10.1 (9.4-12.3) fL Immature Gran % (Auto) Cancelled Neut % (Auto) Cancelled Lymph % (Auto) Cancelled [place] % (Auto) Cancelled Eos % (Auto) Cancelled Baso % (Auto) Cancelled Lymph # (Auto) Cancelled [place] # (Auto) Cancelled Eos # (Auto) Cancelled Baso # (Auto) Cancelled Abs Immat Gran (auto) Cancelled Absolute Neuts (auto) Cancelled Absolute Nucleated RBC 0.000 (0.0-0.012) X10*3/uL Nucleated RBC % (auto) 0.0 (0.0-0.2) /100WBC Neutrophils % (Manual) 70 (45-73) % Band Neutrophils % 22 H (3-5) % Lymphocytes % (Manual) 6 L (20-40) % Monocytes % (Manual) 2 (2-11) % Abs Neuts (Manual) 7.1 (2.0-8.3) X10*3/uL Lymphocytes # (Manual) 0.5 L (1.2-4.9) X10*3/uL Monocytes # (Manual) 0.2 (0.1-1.2) X10*3/uL Toxic Vacuolation PRESENT Dohle Bodies PRESENT Platelet Estimate NORMAL (NORMAL) Plt Morphology Comment NORMAL RBC Morphology NORMAL PT (9.9-13.0) SEC INR (0.9-1.1) APTT (24.1-38.0) SEC Sodium 139 (135-145) mmol/L Potassium 3.3 D (3.3-5.1) mmol/L Chloride 103 (96-108) mmol/L Carbon Dioxide 23 (22-29) mmol/L Anion Gap 16 (12-20) BUN 10 (9-16) mg/dL Creatinine 0.80 (0.5-1.4) mg/dL Estim Creat Clear Calc 80.1 Estimated GFR > 60 POC Glucose (60-115) mg/dL Random Glucose 302 H (60-115) mg/dL Lactic Acid (0.5-2.0) mmol/L Calcium 8.7 (8.4-10.2) mg/dL Total Bilirubin 3.0 H (0.0-1.0) mg/dL Direct Bilirubin 1.6 H (0.0-0.5) mg/dL AST 69 H (5-31) U/L ALT 72 H (0-31) U/L Alkaline Phosphatase 232 H D (39-117) U/L Troponin I High Sens (<3.5-17.0) ng/L B-Natriuretic Peptide (<100) pg/mL Total Protein 6.0 L (6.5-8.0) g/dL Albumin 3.4 L (3.5-5.0) g/dL Lipase 6 L (8-78) U/L Urine Color Urine Appearance Urine pH (5.0-8.0) Ur Specific [place] (1.005-1.025) Urine Protein (NEG-TRACE) MG/DL Urine Glucose (UA) (NEG) MG/DL Urine Ketones (NEG) MG/DL Urine Blood (NEG) Urine Nitrite (NEG) Ur Leukocyte Esterase (NEG) Urine RBC (0) /HPF Urine WBC (0-4) /HPF Ur Squamous Epith Cells /LPF Urine Bacteria /LPF COVID-19 (MELANY) Negative (Negative) COVID-19 Clin Com See Note 09/16/21 09/16/21 09/16/21 Range/Units 07:39 07:39 07:39 WBC (4.8-10.8) X10*3/uL RBC (4.20-5.50) X10*6/uL Hgb (12.0-16.0) g/dl Hct (37.0-47.0) % MCV (80.0-98.0) fL MCH (27.0-33.0) pg MCHC (31.0-35.0) g/dl RDW (11.0-16.0) % Plt Count (160-400) X10*3/uL MPV (9.4-12.3) fL Immature Gran % (Auto) Neut % (Auto) Lymph % (Auto) [place] % (Auto) Eos % (Auto) Baso % (Auto) Lymph # (Auto) [place] # (Auto) Eos # (Auto) Baso # (Auto) Abs Immat Gran (auto) Absolute Neuts (auto) Absolute Nucleated RBC (0.0-0.012) X10*3/uL Nucleated RBC % (auto) (0.0-0.2) /100WBC Neutrophils % (Manual) (45-73) % Band Neutrophils % (3-5) % Lymphocytes % (Manual) (20-40) % Monocytes % (Manual) (2-11) % Abs Neuts (Manual) (2.0-8.3) X10*3/uL Lymphocytes # (Manual) (1.2-4.9) X10*3/uL Monocytes # (Manual) (0.1-1.2) X10*3/uL Toxic Vacuolation Dohle Bodies Platelet Estimate (NORMAL) Plt Morphology Comment RBC Morphology PT (9.9-13.0) SEC INR (0.9-1.1) APTT (24.1-38.0) SEC Sodium (135-145) mmol/L Potassium (3.3-5.1) mmol/L Chloride (96-108) mmol/L Carbon Dioxide (22-29) mmol/L Anion Gap (12-20) BUN (9-16) mg/dL Creatinine (0.5-1.4) mg/dL Estim Creat Clear Calc Estimated GFR POC Glucose (60-115) mg/dL Random Glucose (60-115) mg/dL Lactic Acid 1.7 (0.5-2.0) mmol/L Calcium (8.4-10.2) mg/dL Total Bilirubin (0.0-1.0) mg/dL Direct Bilirubin (0.0-0.5) mg/dL AST (5-31) U/L ALT (0-31) U/L Alkaline Phosphatase (39-117) U/L Troponin I High Sens 23.2 H (<3.5-17.0) ng/L B-Natriuretic Peptide 15 (<100) pg/mL Total Protein (6.5-8.0) g/dL Albumin (3.5-5.0) g/dL Lipase (8-78) U/L Urine Color Urine Appearance Urine pH (5.0-8.0) Ur Specific [place] (1.005-1.025) Urine Protein (NEG-TRACE) MG/DL Urine Glucose (UA) (NEG) MG/DL Urine Ketones (NEG) MG/DL Urine Blood (NEG) Urine Nitrite (NEG) Ur Leukocyte Esterase (NEG) Urine RBC (0) /HPF Urine WBC (0-4) /HPF Ur Squamous Epith Cells /LPF Urine Bacteria /LPF COVID-19 ([facility]ELANY) (Negative) COVID-19 Clin Com 09/16/21 09/16/21 09/16/21 Range/Units 08:07 10:30 16:18 WBC (4.8-10.8) X10*3/uL RBC (4.20-5.50) X10*6/uL Hgb (12.0-16.0) g/dl Hct (37.0-47.0) % MCV (80.0-98.0) fL MCH (27.0-33.0) pg MCHC (31.0-35.0) g/dl RDW (11.0-16.0) % Plt Count (160-400) X10*3/uL MPV (9.4-12.3) fL Immature Gran % (Auto) Neut % (Auto) Lymph % (Auto) [place] % (Auto) Eos % (Auto) Baso % (Auto) Lymph # (Auto) [place] # (Auto) Eos # (Auto) Baso # (Auto) Abs Immat Gran (auto) Absolute Neuts (auto) Absolute Nucleated RBC (0.0-0.012) X10*3/uL Nucleated RBC % (auto) (0.0-0.2) /100WBC Neutrophils % (Manual) (45-73) % Band Neutrophils % (3-5) % Lymphocytes % (Manual) (20-40) % Monocytes % (Manual) (2-11) % Abs Neuts (Manual) (2.0-8.3) X10*3/uL Lymphocytes # (Manual) (1.2-4.9) X10*3/uL Monocytes # (Manual) (0.1-1.2) X10*3/uL Toxic Vacuolation Dohle Bodies Platelet Estimate (NORMAL) Plt Morphology Comment RBC Morphology PT 12.4 (9.9-13.0) SEC INR 1.1 (0.9-1.1) APTT 29.2 (24.1-38.0) SEC Sodium (135-145) mmol/L Potassium (3.3-5.1) mmol/L Chloride (96-108) mmol/L Carbon Dioxide (22-29) mmol/L Anion Gap (12-20) BUN (9-16) mg/dL Creatinine (0.5-1.4) mg/dL Estim Creat Clear Calc Estimated GFR POC Glucose (60-115) mg/dL Random Glucose (60-115) mg/dL Lactic Acid (0.5-2.0) mmol/L Calcium (8.4-10.2) mg/dL Total Bilirubin (0.0-1.0) mg/dL Direct Bilirubin (0.0-0.5) mg/dL AST (5-31) U/L ALT (0-31) U/L Alkaline Phosphatase (39-117) U/L Troponin I High Sens 65.4 H* D (<3.5-17.0) ng/L B-Natriuretic Peptide (<100) pg/mL Total Protein (6.5-8.0) g/dL Albumin (3.5-5.0) g/dL Lipase (8-78) U/L Urine Color YELLOW Urine Appearance CLEAR Urine pH 6.0 (5.0-8.0) Ur Specific [place] 1.015 (1.005-1.025) Urine Protein 1+ H (NEG-TRACE) MG/DL Urine Glucose (UA) >=1000 H (NEG) MG/DL Urine Ketones >=80 (NEG) MG/DL Urine Blood TRACE (NEG) Urine Nitrite NEG (NEG) Ur Leukocyte Esterase NEG (NEG) Urine RBC 0-2 (0) /HPF Urine WBC 0-2 (0-4) /HPF Ur Squamous Epith Cells TRACE /LPF Urine Bacteria 2+ /LPF COVID-19 (MELANY) (Negative) COVID-19 Clin Com 09/16/21 09/16/21 09/16/21 Range/Units 16:18 18:08 21:42 WBC (4.8-10.8) X10*3/uL RBC (4.20-5.50) X10*6/uL Hgb (12.0-16.0) g/dl Hct (37.0-47.0) % MCV (80.0-98.0) fL MCH (27.0-33.0) pg MCHC (31.0-35.0) g/dl RDW (11.0-16.0) % Plt Count (160-400) X10*3/uL MPV (9.4-12.3) fL Immature Gran % (Auto) Neut % (Auto) Lymph % (Auto) [place] % (Auto) Eos % (Auto) Baso % (Auto) Lymph # (Auto) [place] # (Auto) Eos # (Auto) Baso # (Auto) Abs Immat Gran (auto) Absolute Neuts (auto) Absolute Nucleated RBC (0.0-0.012) X10*3/uL Nucleated RBC % (auto) (0.0-0.2) /100WBC Neutrophils % (Manual) (45-73) % Band Neutrophils % (3-5) % Lymphocytes % (Manual) (20-40) % Monocytes % (Manual) (2-11) % Abs Neuts (Manual) (2.0-8.3) X10*3/uL Lymphocytes # (Manual) (1.2-4.9) X10*3/uL Monocytes # (Manual) (0.1-1.2) X10*3/uL Toxic Vacuolation Dohle Bodies Platelet Estimate (NORMAL) Plt Morphology Comment RBC Morphology PT (9.9-13.0) SEC INR (0.9-1.1) APTT (24.1-38.0) SEC Sodium (135-145) mmol/L Potassium (3.3-5.1) mmol/L Chloride (96-108) mmol/L Carbon Dioxide (22-29) mmol/L Anion Gap (12-20) BUN (9-16) mg/dL Creatinine (0.5-1.4) mg/dL Estim Creat Clear Calc Estimated GFR POC Glucose 246 H 222 H (60-115) mg/dL Random Glucose (60-115) mg/dL Lactic Acid (0.5-2.0) mmol/L Calcium (8.4-10.2) mg/dL Total Bilirubin (0.0-1.0) mg/dL Direct Bilirubin (0.0-0.5) mg/dL AST (5-31) U/L ALT (0-31) U/L Alkaline Phosphatase (39-117) U/L Troponin I High Sens 60.4 H* (<3.5-17.0) ng/L B-Natriuretic Peptide (<100) pg/mL Total Protein (6.5-8.0) g/dL Albumin (3.5-5.0) g/dL Lipase (8-78) U/L Urine Color Urine Appearance Urine pH (5.0-8.0) Ur Specific [place] (1.005-1.025) Urine Protein (NEG-TRACE) MG/DL Urine Glucose (UA) (NEG) MG/DL Urine Ketones (NEG) MG/DL Urine Blood (NEG) Urine Nitrite (NEG) Ur Leukocyte Esterase (NEG) Urine RBC (0) /HPF Urine WBC (0-4) /HPF Ur Squamous Epith Cells /LPF Urine Bacteria /LPF COVID-19 ([facility]) (Negative) COVID-19 Clin Com <Prateek De Leon MD - Last Filed: 09/17/21 02:24> Lab Results 09/16/21 09/16/21 09/16/21 Range/Units 06:56 07:39 07:39 WBC 7.7 (4.8-10.8) X10*3/uL RBC 4.45 (4.20-5.50) X10*6/uL Hgb 12.5 (12.0-16.0) g/dl Hct 37.7 (37.0-47.0) % MCV 84.7 (80.0-98.0) fL MCH 28.1 (27.0-33.0) pg MCHC 33.2 (31.0-35.0) g/dl RDW 12.7 (11.0-16.0) % Plt Count 210 (160-400) X10*3/uL MPV 10.1 (9.4-12.3) fL Immature Gran % (Auto) Cancelled Neut % (Auto) Cancelled Lymph % (Auto) Cancelled [place] % (Auto) Cancelled Eos % (Auto) Cancelled Baso % (Auto) Cancelled Lymph # (Auto) Cancelled [place] # (Auto) Cancelled Eos # (Auto) Cancelled Baso # (Auto) Cancelled Abs Immat Gran (auto) Cancelled Absolute Neuts (auto) Cancelled Absolute Nucleated RBC 0.000 (0.0-0.012) X10*3/uL Nucleated RBC % (auto) 0.0 (0.0-0.2) /100WBC Neutrophils % (Manual) 70 (45-73) % Band Neutrophils % 22 H (3-5) % Lymphocytes % (Manual) 6 L (20-40) % Monocytes % (Manual) 2 (2-11) % Abs Neuts (Manual) 7.1 (2.0-8.3) X10*3/uL Lymphocytes # (Manual) 0.5 L (1.2-4.9) X10*3/uL Monocytes # (Manual) 0.2 (0.1-1.2) X10*3/uL Toxic Vacuolation PRESENT Dohle Bodies PRESENT Platelet Estimate NORMAL (NORMAL) Plt Morphology Comment NORMAL RBC Morphology NORMAL PT (9.9-13.0) SEC INR (0.9-1.1) APTT (24.1-38.0) SEC Sodium 139 (135-145) mmol/L Potassium 3.3 D (3.3-5.1) mmol/L Chloride 103 (96-108) mmol/L Carbon Dioxide 23 (22-29) mmol/L Anion Gap 16 (12-20) BUN 10 (9-16) mg/dL Creatinine 0.80 (0.5-1.4) mg/dL Estim Creat Clear Calc 80.1 Estimated GFR > 60 POC Glucose (60-115) mg/dL Random Glucose 302 H (60-115) mg/dL Lactic Acid (0.5-2.0) mmol/L Calcium 8.7 (8.4-10.2) mg/dL Total Bilirubin 3.0 H (0.0-1.0) mg/dL Direct Bilirubin 1.6 H (0.0-0.5) mg/dL AST 69 H (5-31) U/L ALT 72 H (0-31) U/L Alkaline Phosphatase 232 H D (39-117) U/L Troponin I High Sens (<3.5-17.0) ng/L B-Natriuretic Peptide (<100) pg/mL Total Protein 6.0 L (6.5-8.0) g/dL Albumin 3.4 L (3.5-5.0) g/dL Lipase 6 L (8-78) U/L Urine Color Urine Appearance Urine pH (5.0-8.0) Ur Specific [place] (1.005-1.025) Urine Protein (NEG-TRACE) MG/DL Urine Glucose (UA) (NEG) MG/DL Urine Ketones (NEG) MG/DL Urine Blood (NEG) Urine Nitrite (NEG) Ur Leukocyte Esterase (NEG) Urine RBC (0) /HPF Urine WBC (0-4) /HPF Ur Squamous Epith Cells /LPF Urine Bacteria /LPF COVID-19 ([facility]ELANY) Negative (Negative) COVID-19 Clin Com See Note 09/16/21 09/16/21 09/16/21 Range/Units 07:39 07:39 07:39 WBC (4.8-10.8) X10*3/uL RBC (4.20-5.50) X10*6/uL Hgb (12.0-16.0) g/dl Hct (37.0-47.0) % MCV (80.0-98.0) fL MCH (27.0-33.0) pg MCHC (31.0-35.0) g/dl RDW (11.0-16.0) % Plt Count (160-400) X10*3/uL MPV (9.4-12.3) fL Immature Gran % (Auto) Neut % (Auto) Lymph % (Auto) [place] % (Auto) Eos % (Auto) Baso % (Auto) Lymph # (Auto) [place] # (Auto) Eos # (Auto) Baso # (Auto) Abs Immat Gran (auto) Absolute Neuts (auto) Absolute Nucleated RBC (0.0-0.012) X10*3/uL Nucleated RBC % (auto) (0.0-0.2) /100WBC Neutrophils % (Manual) (45-73) % Band Neutrophils % (3-5) % Lymphocytes % (Manual) (20-40) % Monocytes % (Manual) (2-11) % Abs Neuts (Manual) (2.0-8.3) X10*3/uL Lymphocytes # (Manual) (1.2-4.9) X10*3/uL Monocytes # (Manual) (0.1-1.2) X10*3/uL Toxic Vacuolation Dohle Bodies Platelet Estimate (NORMAL) Plt Morphology Comment RBC Morphology PT (9.9-13.0) SEC INR (0.9-1.1) APTT (24.1-38.0) SEC Sodium (135-145) mmol/L Potassium (3.3-5.1) mmol/L Chloride (96-108) mmol/L Carbon Dioxide (22-29) mmol/L Anion Gap (12-20) BUN (9-16) mg/dL Creatinine (0.5-1.4) mg/dL Estim Creat Clear Calc Estimated GFR POC Glucose (60-115) mg/dL Random Glucose (60-115) mg/dL Lactic Acid 1.7 (0.5-2.0) mmol/L Calcium (8.4-10.2) mg/dL Total Bilirubin (0.0-1.0) mg/dL Direct Bilirubin (0.0-0.5) mg/dL AST (5-31) U/L ALT (0-31) U/L Alkaline Phosphatase (39-117) U/L Troponin I High Sens 23.2 H (<3.5-17.0) ng/L B-Natriuretic Peptide 15 (<100) pg/mL Total Protein (6.5-8.0) g/dL Albumin (3.5-5.0) g/dL Lipase (8-78) U/L Urine Color Urine Appearance Urine pH (5.0-8.0) Ur Specific [place] (1.005-1.025) Urine Protein (NEG-TRACE) MG/DL Urine Glucose (UA) (NEG) MG/DL Urine Ketones (NEG) MG/DL Urine Blood (NEG) Urine Nitrite (NEG) Ur Leukocyte Esterase (NEG) Urine RBC (0) /HPF Urine WBC (0-4) /HPF Ur Squamous Epith Cells /LPF Urine Bacteria /LPF COVID-19 ([facility]) (Negative) COVID-19 Clin Com 09/16/21 09/16/21 09/16/21 Range/Units 08:07 10:30 16:18 WBC (4.8-10.8) X10*3/uL RBC (4.20-5.50) X10*6/uL Hgb (12.0-16.0) g/dl Hct (37.0-47.0) % MCV (80.0-98.0) fL MCH (27.0-33.0) pg MCHC (31.0-35.0) g/dl RDW (11.0-16.0) % Plt Count (160-400) X10*3/uL MPV (9.4-12.3) fL Immature Gran % (Auto) Neut % (Auto) Lymph % (Auto) [place] % (Auto) Eos % (Auto) Baso % (Auto) Lymph # (Auto) [place] # (Auto) Eos # (Auto) Baso # (Auto) Abs Immat Gran (auto) Absolute Neuts (auto) Absolute Nucleated RBC (0.0-0.012) X10*3/uL Nucleated RBC % (auto) (0.0-0.2) /100WBC Neutrophils % (Manual) (45-73) % Band Neutrophils % (3-5) % Lymphocytes % (Manual) (20-40) % Monocytes % (Manual) (2-11) % Abs Neuts (Manual) (2.0-8.3) X10*3/uL Lymphocytes # (Manual) (1.2-4.9) X10*3/uL Monocytes # (Manual) (0.1-1.2) X10*3/uL Toxic Vacuolation Dohle Bodies Platelet Estimate (NORMAL) Plt Morphology Comment RBC Morphology PT 12.4 (9.9-13.0) SEC INR 1.1 (0.9-1.1) APTT 29.2 (24.1-38.0) SEC Sodium (135-145) mmol/L Potassium (3.3-5.1) mmol/L Chloride (96-108) mmol/L Carbon Dioxide (22-29) mmol/L Anion Gap (12-20) BUN (9-16) mg/dL Creatinine (0.5-1.4) mg/dL Estim Creat Clear Calc Estimated GFR POC Glucose (60-115) mg/dL Random Glucose (60-115) mg/dL Lactic Acid (0.5-2.0) mmol/L Calcium (8.4-10.2) mg/dL Total Bilirubin (0.0-1.0) mg/dL Direct Bilirubin (0.0-0.5) mg/dL AST (5-31) U/L ALT (0-31) U/L Alkaline Phosphatase (39-117) U/L Troponin I High Sens 65.4 H* D (<3.5-17.0) ng/L B-Natriuretic Peptide (<100) pg/mL Total Protein (6.5-8.0) g/dL Albumin (3.5-5.0) g/dL Lipase (8-78) U/L Urine Color YELLOW Urine Appearance CLEAR Urine pH 6.0 (5.0-8.0) Ur Specific [place] 1.015 (1.005-1.025) Urine Protein 1+ H (NEG-TRACE) MG/DL Urine Glucose (UA) >=1000 H (NEG) MG/DL Urine Ketones >=80 (NEG) MG/DL Urine Blood TRACE (NEG) Urine Nitrite NEG (NEG) Ur Leukocyte Esterase NEG (NEG) Urine RBC 0-2 (0) /HPF Urine WBC 0-2 (0-4) /HPF Ur Squamous Epith Cells TRACE /LPF Urine Bacteria 2+ /LPF COVID-19 ([facility]) (Negative) COVID-19 Clin Com 09/16/21 09/16/21 09/16/21 Range/Units 16:18 18:08 21:42 WBC (4.8-10.8) X10*3/uL RBC (4.20-5.50) X10*6/uL Hgb (12.0-16.0) g/dl Hct (37.0-47.0) % MCV (80.0-98.0) fL MCH (27.0-33.0) pg MCHC (31.0-35.0) g/dl RDW (11.0-16.0) % Plt Count (160-400) X10*3/uL MPV (9.4-12.3) fL Immature Gran % (Auto) Neut % (Auto) Lymph % (Auto) [place] % (Auto) Eos % (Auto) Baso % (Auto) Lymph # (Auto) [place] # (Auto) Eos # (Auto) Baso # (Auto) Abs Immat Gran (auto) Absolute Neuts (auto) Absolute Nucleated RBC (0.0-0.012) X10*3/uL Nucleated RBC % (auto) (0.0-0.2) /100WBC Neutrophils % (Manual) (45-73) % Band Neutrophils % (3-5) % Lymphocytes % (Manual) (20-40) % Monocytes % (Manual) (2-11) % Abs Neuts (Manual) (2.0-8.3) X10*3/uL Lymphocytes # (Manual) (1.2-4.9) X10*3/uL Monocytes # (Manual) (0.1-1.2) X10*3/uL Toxic Vacuolation Dohle Bodies Platelet Estimate (NORMAL) Plt Morphology Comment RBC Morphology PT (9.9-13.0) SEC INR (0.9-1.1) APTT (24.1-38.0) SEC Sodium (135-145) mmol/L Potassium (3.3-5.1) mmol/L Chloride (96-108) mmol/L Carbon Dioxide (22-29) mmol/L Anion Gap (12-20) BUN (9-16) mg/dL Creatinine (0.5-1.4) mg/dL Estim Creat Clear Calc Estimated GFR POC Glucose 246 H 222 H (60-115) mg/dL Random Glucose (60-115) mg/dL Lactic Acid (0.5-2.0) mmol/L Calcium (8.4-10.2) mg/dL Total Bilirubin (0.0-1.0) mg/dL Direct Bilirubin (0.0-0.5) mg/dL AST (5-31) U/L ALT (0-31) U/L Alkaline Phosphatase (39-117) U/L Troponin I High Sens 60.4 H* (<3.5-17.0) ng/L B-Natriuretic Peptide (<100) pg/mL Total Protein (6.5-8.0) g/dL Albumin (3.5-5.0) g/dL Lipase (8-78) U/L Urine Color Urine Appearance Urine pH (5.0-8.0) Ur Specific [place] (1.005-1.025) Urine Protein (NEG-TRACE) MG/DL Urine Glucose (UA) (NEG) MG/DL Urine Ketones (NEG) MG/DL Urine Blood (NEG) Urine Nitrite (NEG) Ur Leukocyte Esterase (NEG) Urine RBC (0) /HPF Urine WBC (0-4) /HPF Ur Squamous Epith Cells /LPF Urine Bacteria /LPF COVID-19 ([facility]) (Negative) COVID-19 Clin Com <Tasneem Meade DO - Last Filed: 09/17/21 06:46> Imaging Data Chest x-ray: Attestation: I personally reviewed and interpreted this imaging study as follows: <Alvino Rehman MD - Last Filed: 09/16/21 22:21> Radiologist's impression: No acute cardiopulmonary process. <Alvino Rehman MD - Last Filed: 09/16/21 22:21> CT abdomen pelvis: Attestation: I personally reviewed and interpreted this imaging study as follows: <Alvino Rehman MD - Last Filed: 09/16/21 22:21> Radiologist's impression: Indeterminate ill-defined abnormality in the lateral surface of the mid to lower pole of the left kidney with surrounding fat stranding and inflammatory changes. Findings could be related with pyelonephritis or early abscess formation in the proper clinical context. Further evaluation with intravenous contrast would be helpful to further characterize these findings. ? Abnormally dilated loops of jejunum in the left upper and mid abdomen in which an internal hernia leading to a partial small bowel obstruction is suspected. Alternatively, given the inflammatory changes in the left flank, this could represent a reactive focal ileus. ? Small hiatal hernia with circumferential thickening of the lower esophagus suggesting reflux esophagitis. ? Diverticulosis. ? The uterus and adnexa are not entirely well delineated. There is indeterminate asymmetric enlargement of the left ovary which is more superiorly located when compared to the right ovary. Correlate clinically for pain and if indicated consider further evaluation with a pelvic ultrasound. ? <Alvino Rehmna MD - Last Filed: 09/16/21 22:21> ECG Data Attestation: I personally reviewed and interpreted this ECG as follows: <Alvino Rehman MD - Last Filed: 09/16/21 22:21> Interpretation: Normal sinus rhythm at 107, LVH, diffuse ST-T changes. <Alvino Rehman MD - Last Filed: 09/16/21 22:21> Discharge Plan Discharge Clinical Impression: Kidney abscess, Systemic inflammatory response syndrome <Alvino Rehman MD - Last Filed: 09/16/21 22:21> Prescriptions: No Action calcium carbonate-vitamin D3 600 mg(1,500mg) -800 unit tablet 1 tab PO BID Qty: 60 RF: 11 cholecalciferol (vitamin D3) 50 mcg (2,000 unit) capsule 50 mcg PO DAILY Qty: 30 RF: 6 Complete MV Adult 50 Plus 0.4-300-250 mg-mcg-mcg tablet 1 tab PO DAILY Qty: 30 RF: 3 metformin 1,000 mg tablet 1,000 mg PO BID 30 Days Qty: 60 RF: 6 famotidine [Pepcid] 40 mg tablet 40 mg PO DAILY Qty: 4 RF: 0 rosuvastatin 40 mg tablet 40 mg PO BEDTIME RF: 0 dulaglutide 1.5 mg/0.5 mL pen injector 1.5 mg subcut MO@0900 RF: 0 oxycodone-acetaminophen 5-325 mg tablet 1 tab PO Q8H PRN (Reason: severe pain) RF: 0 pantoprazole 40 mg tablet,delayed release (DR/EC) 1 tab PO QAM RF: 0 Flovent HFA 110 mcg/actuation HFA aerosol inhaler 1 puff inhalation BID RF: 0 (DME) FreeStyle Lite Strips Strip See Rx Instructions ea Not Applicable BID Qty: 10 RF: 0 albuterol sulfate 90 mcg/actuation HFA aerosol inhaler 2 puff PO Q4-6H PRN (Reason: dyspnea) RF: 0 ezetimibe 10 mg tablet 10 mg PO QAM 90 Days Qty: 90 RF: 2 Bystolic 5 mg tablet 5 mg PO DAILY RF: 0 pregabalin 75 mg capsule 75 mg PO BEDTIME RF: 0 loratadine 10 mg tablet 10 mg PO DAILY RF: 0 chlorthalidone 25 mg tablet 25 mg PO DAILY RF: 0 enalapril maleate 20 mg tablet 20 mg PO DAILY RF: 0 <Alvino Rehman MD - Last Filed: 09/16/21 22:21> [facility], [facility] Past Medical History Medical History: Medical History Diabetes type 2, controlled Diabetic polyneuropathy associated with type 2 diabetes mellitus Dyslipidemia History of diverticulosis Hx of diverticulitis of colon Hypertension Vitamin D deficiency <Alvino Rehman MD - Last Filed: 09/16/21 22:21> Surgical History: Surgical History History of carpal tunnel release History of sleeve gastrectomy Hx of cholecystectomy Hx of colonoscopy Hx of excision of mass Hx of foot surgery Hx of tubal ligation <Alvino Rehman MD - Last Filed: 09/16/21 22:21> Family History Family History: Family History Father Hypertension Mother No problems noted. Son No problems noted. Son No problems noted. Daughter Hypertension Asthma Obesity Muscle spasm Acute depression Sister No problems noted. Sister No problems noted. Brother No problems noted. Brother No problems noted. Brother No problems noted. Brother No problems noted. Brother No problems noted. <Alvino Rehman MD - Last Filed: 09/16/21 22:21> Social History Social History: Social History Alcohol intake: never Advance Directives: Yes Advance Directives Information Provided: Yes Advance Directives on File: No <Alvino Rehman MD - Last Filed: 09/16/21 22:21>
[2021-09-16 07:25] LABS: COVID-19 Test Negative (Negative)
[2021-09-16] MEDS: Acetaminophen 325 MG TABLET 650 MG PO ×2 (07:30→16:09)
[2021-09-16 07:46] LABS: Hematocrit 37.7 % (37.0-47.0); Hemoglobin 12.5 g/dl (12.0-16.0); Mean Corpuscular HGB Conc 33.2 g/dl (31.0-35.0); Mean Corpuscular Hemoglobin 28.1 pg (27.0-33.0); Mean Corpuscular Volume 84.7 fL (80.0-98.0); Mean Platelet Volume 10.1 fL (9.4-12.3); Platelet Count 210 X10*3/uL (160-400); Red Blood Count 4.45 X10*6/uL (4.20-5.50); Red Cell Distribution Width 12.7 % (11.0-16.0); White Blood Count 7.7 X10*3/uL (4.8-10.8)
[2021-09-16 07:58] LABS: Lactic Acid 1.7 mmol/L (0.5-2.0)
[2021-09-16 08:04] LABS: Alanine Aminotransferase 72 U/L (0-31); Albumin Level 3.4 g/dL (3.5-5.0); Alkaline Phosphatase 232 U/L (39-117); Anion Gap 16 (12-20); Aspartate Amino Transferase 69 U/L (5-31); Bilirubin Direct 1.6 mg/dL (0.0-0.5); Blood Urea Nitrogen 10 mg/dL (9-16); Calcium 8.7 mg/dL (8.4-10.2); Carbon Dioxide 23 mmol/L (22-29); Chloride 103 mmol/L (96-108); Creatinine Clr Calc Pharmacy 80.1; Estimated Glomerular Filt Rate > 60; Glucose Random 302 mg/dL (60-115); Lipase 6 U/L (8-78); Potassium 3.3 mmol/L (3.3-5.1); Sodium 139 mmol/L (135-145)
[2021-09-16 08:10] LABS: Troponin-I High Sensitivity 23.2 ng/L (<3.5-17.0)
[2021-09-16 08:12] LABS: B Type Natriuretic Peptide 15 pg/mL (<100); Band Neutrophils Percent 22 % (3-5); Lymphocytes Absolute Manual 0.5 X10*3/uL (1.2-4.9); Lymphocytes Percent Manual 6 % (20-40); Monocytes Absolute Manual 0.2 X10*3/uL (0.1-1.2); Monocytes Percent Manual 2 % (2-11); Neutrophils Absolute Manual 7.1 X10*3/uL (2.0-8.3); Neutrophils Percent Manual 70 % (45-73)
[2021-09-16 08:13] LABS: Dohle Bodies PRESENT; Platelet Estimate NORMAL (NORMAL); Platelet Morphology Comment NORMAL; RBC Morphology NORMAL; Toxic Vacuolation PRESENT
[2021-09-16 08:20] LABS: Appearance Urine CLEAR; Color Urine YELLOW; Glucose Urine UA >=1000 MG/DL (NEG); Leukocyte Esterase Urine NEG (NEG); Nitrite Urine NEG (NEG); Specific Gravity - Urine 1.015 (1.005-1.025); UACC Culture Trigger NO; Urine Blood TRACE (NEG); Urine Ketones >=80 MG/DL (NEG); Urine Protein 1+ MG/DL (NEG-TRACE)
[2021-09-16 08:28] LABS: Squamous Epithelial Cell Urine TRACE /LPF
[2021-09-16 08:29] LABS: Bacteria Urine 2+ /LPF; RBC Urine 0-2 /HPF (0); WBC Urine 0-2 /HPF (0-4)
[2021-09-16 11:04] LABS: Troponin-I High Sensitivity 65.4 ng/L (<3.5-17.0)
[2021-09-16] MEDS: cefTRIAXone sodium 1 GM in 0.9 % Sodium Chloride 50 ML IV (11:51)
--- NOTE | 2021-09-16 13:41 | PM.CNGS ---
History of Present Illness Consult details Consult date: 09/16/21 Narrative: 66 yo woman had LSG by Dr Golden Oct 2018 and had been following up in office until January 2021. She ws having some reflux symptoms at that time and did not make the meal plan changes I suggested or return for follow up. Pt came to ED today due to her daughter being concerned about her. Patient states since 09/11 after she ate sweet rice and did not feel well afterwards, she has been unable to eat or drink anything except for water. She has had emesis daily up until yesterday, has had daily soft stools up until 09/14 and + flatus since then. She feels weak and has no appetite. She complains of low back pain and epigastric discomfort. Review of Systems Constitutional: Constitutional: Reports as per HPI Gastrointestinal: Gastrointestinal: Reports no additional gastrointestinal complaints PMFSH Past Medical History Medical History Diabetes type 2, controlled Diabetic polyneuropathy associated with type 2 diabetes mellitus Dyslipidemia History of diverticulosis Hx of diverticulitis of colon Hypertension Vitamin D deficiency Family History Family History Father Hypertension Mother No problems noted. Son No problems noted. Son No problems noted. Daughter Hypertension Asthma Obesity Muscle spasm Acute depression Sister No problems noted. Sister No problems noted. Brother No problems noted. Brother No problems noted. Brother No problems noted. Brother No problems noted. Brother No problems noted. Surgical History Surgical History History of carpal tunnel release History of sleeve gastrectomy Hx of cholecystectomy Hx of colonoscopy Hx of excision of mass Hx of foot surgery Hx of tubal ligation Social History Social History Alcohol intake: never Advance Directives: Yes Advance Directives Information Provided: Yes Advance Directives on File: No Meds Allergies Allergy/AdvReac Type Severity Reaction Status Date / Time pollen Allergy Unknown shortness Uncoded 02/26/13 00:00 of breath Pt states no food/medication Allergy Unknown Anaphylaxis Uncoded 02/11/21 10:14 a Home Medications Medication Instructions Recorded Confirmed Last Taken Type chlorthalidone 25 mg tablet 25 mg PO DAILY 08/01/20 02/11/21 Unknown History enalapril maleate 20 mg tablet 20 mg PO QAM 08/01/20 02/11/21 Unknown History loratadine 10 mg tablet 10 mg PO QAM 08/01/20 02/11/21 Unknown History nebivolol 5 mg tablet 5 mg PO DAILY 08/01/20 02/11/21 Unknown History pregabalin 75 mg capsule 75 mg PO BEDTIME 08/01/20 02/11/21 Unknown History albuterol sulfate 90 mcg/actuation 2 puff PO Q4-6H PRN 11/21/20 02/11/21 Unknown History aerosol inhaler blood sugar diagnostic #10 ea 11/21/20 02/11/21 Unknown History chlorpromazine 200 mg tablet 200 mg PO tab 11/21/20 02/11/21 Unknown History fluticasone propionate 110 INHALATION 11/21/20 02/11/21 Unknown History mcg/actuation HFA aerosol inhaler Physical Exam Vital Signs: Vital Signs: Last Vital Signs Temp 98.7 F 09/16/21 12:29 Pulse 83 09/16/21 12:29 Resp 14 09/16/21 12:29 BP 116/46 L 09/16/21 12:29 Pulse Ox 98 09/16/21 12:29 BMI result Body Mass Index 39.0 Const: General: cooperative, healthy appearing, comfortable and no acute distress Nutritional Appearance: obese Orientation/consciousness: patient oriented x3 Limitations: no limitations GI: Inspection: Yes normal to inspection and Yes scar (all incisions well healed) Palpation (GI): Soft to palpation, nontender, no guarding, not rigid, no hernias and no masses Auscultation: normal bowel sounds Neuro: General: patient oriented x3 Extrem: General: Yes no pedal edema and Yes no calf tenderness Results Labs Result diagrams: 09/16/21 07:39 09/16/21 07:39 Labs: Abnormal lab results 09/16/21 09/16/21 09/16/21 Range/Units 07:39 07:39 07:39 Band Neutrophils % 22 H (3-5) % Lymphocytes % (Manual) 6 L (20-40) % Lymphocytes # (Manual) 0.5 L (1.2-4.9) X10*3/uL Random Glucose 302 H (60-115) mg/dL Total Bilirubin 3.0 H (0.0-1.0) mg/dL Direct Bilirubin 1.6 H (0.0-0.5) mg/dL AST 69 H (5-31) U/L ALT 72 H (0-31) U/L Alkaline Phosphatase 232 H D (39-117) U/L Troponin I High Sens 23.2 H (<3.5-17.0) ng/L Total Protein 6.0 L (6.5-8.0) g/dL Albumin 3.4 L (3.5-5.0) g/dL Lipase 6 L (8-78) U/L Urine Protein (NEG-TRACE) MG/DL Urine Glucose (UA) (NEG) MG/DL 09/16/21 09/16/21 Range/Units 08:07 10:30 Band Neutrophils % (3-5) % Lymphocytes % (Manual) (20-40) % Lymphocytes # (Manual) (1.2-4.9) X10*3/uL Random Glucose (60-115) mg/dL Total Bilirubin (0.0-1.0) mg/dL Direct Bilirubin (0.0-0.5) mg/dL AST (5-31) U/L ALT (0-31) U/L Alkaline Phosphatase (39-117) U/L Troponin I High Sens 65.4 H* D (<3.5-17.0) ng/L Total Protein (6.5-8.0) g/dL Albumin (3.5-5.0) g/dL Lipase (8-78) U/L Urine Protein 1+ H (NEG-TRACE) MG/DL Urine Glucose (UA) >=1000 H (NEG) MG/DL Short CBC 09/16/21 Range/Units 07:39 WBC 7.7 (4.8-10.8) X10*3/uL Hgb 12.5 (12.0-16.0) g/dl Hct 37.7 (37.0-47.0) % Plt Count 210 (160-400) X10*3/uL BMP 09/16/21 07:39 Sodium 139 Potassium 3.3 D Chloride 103 Carbon Dioxide 23 BUN 10 Creatinine 0.80 Calcium 8.7 Liver Function 09/16/21 Range/Units 07:39 Total Bilirubin 3.0 H (0.0-1.0) mg/dL Direct Bilirubin 1.6 H (0.0-0.5) mg/dL AST 69 H (5-31) U/L ALT 72 H (0-31) U/L Alkaline Phosphatase 232 H D (39-117) U/L Albumin 3.4 L (3.5-5.0) g/dL Urine 09/16/21 Range/Units 08:07 Urine Color YELLOW Urine Appearance CLEAR Urine pH 6.0 (5.0-8.0) Ur Specific [place] 1.015 (1.005-1.025) Urine Protein 1+ H (NEG-TRACE) MG/DL Urine Glucose (UA) >=1000 H (NEG) MG/DL All other labs normal. Imaging Abdomen CT scan report/results: report reviewed and image reviewed (with Dr Golden - no evidence for bowel obstruction) Abdominal ultrasound report/results: report reviewed Assessment and Plan (1) Abdominal pain: Status: Acute 66 yo woman with multiple medical problems and a 5 d hx of abd pain, anorexia, with emesis and loose stool presents to Ed with fever of 103, bandemia and elevated troponin adn LFT's. CT abd does not reveal a bowel obstruction or other GI or surgical reason for her symptoms. She does have a hiatal hernia and will need UGI at some point, but not emergently. Since she does not have a surgical abdomen and I have suggested to Dr Rehman that the hospitalist service should follow up on possible pyelonephritis or other cause for her symptoms. Pt has been made aware and the case with discussed fully with Dr Golden. We can follow as needed if the patietn is admitted. (2) Emesis: Status: Acute (3) Fever: Status: Acute (4) Bandemia: Status: Acute (5) Elevated LFTs: Status: Acute (6) Hypertension: Qualifiers: Hypertension type: essential hypertension Qualified Code(s): I10 - Essential (primary) hypertension Status: Acute (7) Diabetes type 2, controlled: Qualifiers: Diabetes mellitus complication detail: with polyneuropathy Diabetes mellitus complication status: with neurologic complications Diabetes mellitus exterminator termite insulin use: without exterminator termite use Qualified Code(s): E11.42 - Type 2 diabetes mellitus with diabetic polyneuropathy Status: Acute (8) History of sleeve gastrectomy: Status: Acute Procedures Date of Service Date of Service: 09/16/21
[2021-09-16] MEDS: iohexoL 350 MG/ML 100 ML INFUS..BTL IV (14:13)
[2021-09-16] MEDS: Piperacillin Sodium/Tazobactam 3.375 GM in 0.9 % Sodium Chloride 50 ML IV ×2 (16:04→20:55)
[2021-09-16 16:45] LABS: INTERNATIONAL NORM RATIO 1.1 (0.9-1.1); Prothrombin Time 12.4 SEC (9.9-13.0)
[2021-09-16 16:47] LABS: Partial Thromboplastin Time 29.2 SEC (24.1-38.0)
--- NOTE | 2021-09-16 16:48 | PC.NURSE ---
calls for transfer placed to [facility], [facility], [facility], and [facility]. all declined.
[2021-09-16 17:04] LABS: Troponin-I High Sensitivity 60.4 ng/L (<3.5-17.0)
[2021-09-16] MEDS: vancomycin HCL 1,000 MG in 0.9 % Sodium Chloride 250 ML 270 MG IV (17:51)
[2021-09-16] MEDS: Lactated Ringers 1,000 ML 125 ML IVCONT (18:04)
[2021-09-16 18:37] LABS: Glucose, Whole Blood 246 mg/dL (60-115)
--- NOTE | 2021-09-16 19:22 | PHA.MEDREC ---
Pharmacy Consult ? Medication Reconciliation Pharmacy has completed the medication reconciliation. Pt states that she has not taken any of her medications since July due to insurance issues. Kamila Goff RP
[2021-09-16] MEDS: Acetaminophen 325 MG TABLET 975 MG PO (21:19)
[2021-09-16 21:45] LABS: Glucose, Whole Blood 222 mg/dL (60-115)
--- NOTE | 2021-09-16 22:41 | PC.NURSE ---
MD De Leon aware of recent vitals. Pt asymptomatic. Remaining 500 cc of maintenance fluids set to bolus per MD request
[2021-09-17] VITALS (17 sets, daily range): BP systolic 97–138; BP diastolic 41–71; PULSE 65–115; RESP 16–23; TEMP 36.3–38.3; O2SAT 95–100
[2021-09-17] MEDS: Piperacillin Sodium/Tazobactam 3.375 GM in 0.9 % Sodium Chloride 50 ML IV ×4 (03:31→21:08)
[2021-09-17] MEDS: Lactated Ringers 1,000 ML 125 ML IVCONT ×2 (03:45→09:02)
--- NOTE | 2021-09-17 08:36 | PC.NURSE ---
from [facility], states that patient will have mass drainage in IR, a few hours in recovery. unk disposition following procedure.
[2021-09-17] MEDS: Acetaminophen Supp 650 MG SUPP.RECT PR (09:12)
[2021-09-17 09:13] LABS: Glucose, Whole Blood 249 mg/dL (60-115)
--- NOTE | 2021-09-17 09:13 | PC.NURSE ---
medicated for fever 101.0 with rectal tylenol. pt has slight lower back pain at this time. is nsr on monitor. skin pwd. no active vomiting. fluids infusing. aware of plan for transfer to IR. was ambulatory to BR with minimal assist earlier. needed a moment to get bearings then was steady on feet. axox3.
[2021-09-17 13:43] LABS: Hematocrit 32.8 % (37.0-47.0); Hemoglobin 10.7 g/dl (12.0-16.0); Mean Corpuscular HGB Conc 32.6 g/dl (31.0-35.0); Mean Corpuscular Volume 85.9 fL (80.0-98.0); Mean Platelet Volume 10.2 fL (9.4-12.3); Platelet Count 201 X10*3/uL (160-400); Red Blood Count 3.82 X10*6/uL (4.20-5.50); Red Cell Distribution Width 13.2 % (11.0-16.0); White Blood Count 9.1 X10*3/uL (4.8-10.8)
--- NOTE | 2021-09-17 13:53 | PM.EVENT ---
Event Note Date of Service: 09/17/21 Event Note: Attending Attestation: Patient seen and examined independently and I was present during lee portion of E/M service. Agree with JOSE ELIAS Narvaez's history, physical, assessment, and plan. 66 yo F being admitted for severe sepsis secondary to pyelonephritis / abscess. She is seen and examined in PACU. She reports feeling better. She reports symptoms since 09/11, on and off. [place]/vomiting, fevers and chills, Pain. Will continue LR and IV zosyn. F/u cultures from the abscess and bacteremia.
[2021-09-17 14:07] LABS: Alanine Aminotransferase 53 U/L (0-31); Albumin Level 2.8 g/dL (3.5-5.0); Alkaline Phosphatase 166 U/L (39-117); Anion Gap 14 (12-20); Aspartate Amino Transferase 49 U/L (5-31); Bilirubin Direct 0.8 mg/dL (0.0-0.5); Bilirubin Total 1.5 mg/dL (0.0-1.0); Blood Urea Nitrogen 12 mg/dL (9-16); Carbon Dioxide 21 mmol/L (22-29); Chloride 110 mmol/L (96-108); Creatinine Clr Calc Pharmacy 80.1; Estimated Glomerular Filt Rate > 60; Glucose Random 340 mg/dL (60-115); Potassium 3.1 mmol/L (3.3-5.1); Sodium 142 mmol/L (135-145); Total Protein 5.1 g/dL (6.5-8.0)
--- NOTE | 2021-09-17 14:36 | PM.CNGS ---
History of Present Illness Consult details Consult date: 09/17/21 Narrative: 67-year-old female with morbid obesity, diabetes, and hypertension, brought to the emergency room yesterday because of multiple complaints. She was noted to have pyelonephritis with an abscess. She actually denies any abdominal pain at this time. She denies any nausea or vomiting. She has had bowel movements and good flatus. She says she feels well overall after CT drainage. Review of Systems Constitutional: Constitutional: Reports chills, Reports fever(s) and Reports malaise Cardiovascular: Cardiovascular: Denies chest pain, Denies dyspnea and Denies dyspnea on exertion Respiratory: Respiratory: Denies cough, Denies dyspnea and Denies dyspnea on exertion Gastrointestinal: Gastrointestinal: Denies hematochezia and Denies change in bowel habits Genitourinary: Genitourinary: Denies hematuria Musculoskeletal: Musculoskeletal: Denies back pain and Denies limited range of motion Neurologic: Denies focal weakness and Denies convulsions Psychiatric: Psychiatric: Denies depression and Denies mood swings PMFSH Past Medical History Medical History Diabetes type 2, controlled Diabetic polyneuropathy associated with type 2 diabetes mellitus Dyslipidemia History of diverticulosis Hx of diverticulitis of colon Hypertension Vitamin D deficiency Family History Family History Father Hypertension Mother No problems noted. Son No problems noted. Son No problems noted. Daughter Hypertension Asthma Obesity Muscle spasm Acute depression Sister No problems noted. Sister No problems noted. Brother No problems noted. Brother No problems noted. Brother No problems noted. Brother No problems noted. Brother No problems noted. Surgical History Surgical History History of carpal tunnel release History of sleeve gastrectomy Hx of cholecystectomy Hx of colonoscopy Hx of excision of mass Hx of foot surgery Hx of tubal ligation Social History Social History Household Members: Family Housing: Apartment Do you presently have visiting nurse or other home services: Yes Alcohol intake: never Patient Tobacco Use Status: Never used Tobacco Advance Directives Date on File: 09/17/21 service: No Current occupational status: unemployed Meds Allergies Allergy/AdvReac Type Severity Reaction Status Date / Time pollen Allergy Unknown shortness Uncoded 09/17/21 16:13 of breath Pt states no food/medication Allergy Unknown Anaphylaxis Uncoded 09/17/21 16:13 a Active Medications: Current Medications Acetaminophen (Acetaminophen 325 Mg Tablet) 650 mg PO Q4H PRN PRN Reason: Pain, Moderate (Pain Scale 4-6 Acetaminophen (Acetaminophen Supp 650 Mg Supp.Rect) 650 mg IA Q6H PRN PRN Reason: Pain, Mild (Pain Scale 1-3) Albuterol Sulfate (Albuterol Sulfate 90 Mcg 8 Gm Inhaler) 2 puff INHALE Q4H PRN PRN Reason: dyspnea Calcium Carbonate/Cholecalciferol (Calcium + Vitamin D 250 Mg Tablet) 500 mg PO BID [facility] Dextrose (Dextrose 50 % 25 Gm/50 Ml Vial) 25 gm IVPUSH Q15M PRN; Protocol PRN Reason: per Hypoglycemia Standing Ord. Docusate Sodium (Docusate Sodium 100 Mg Capsule) 100 mg PO DAILY PRN PRN Reason: Constipation Famotidine (Famotidine 20 Mg Tablet) 40 mg PO DAILY [facility] Fluticasone Propionate (Fluticasone Propionate 100 Mcg Blst.W.Dev) 1 puff INHALE RBID [facility] Last Admin: 09/17/21 08:32 Dose: Not Given Documented by: Glucose (Glucose Gel 15 Gm Gel..Gram.) 15 gm PO Q15M PRN; Protocol PRN Reason: per Hypoglycemia Standing Ord. Heparin Sodium (Porcine) (Heparin Sodium,Porcine 5,000 Unit/Ml Vial) 5,000 unit SUBCUT Q12H [facility] Lactated Ringer's (Lr) 1,000 mls @ 100 mls/hr IVCONT .Q10H [facility] Last Admin: 09/17/21 09:02 Dose: 125 mls/hr Documented by: Piperacillin Sod/Tazobactam (Sod 3.375 gm/ Sodium Chloride) 50 mls @ 100 mls/hr IV Q6H [facility] Last Admin: 09/17/21 09:02 Dose: 100 mls/hr Documented by: Insulin Human Lispro (Insulin Lispro 100 Unit/Ml 3 Ml Vial) 0 unit SUBCUT QIDACHS [facility]; Protocol Loratadine (Loratadine 10 Mg Tablet) 10 mg PO DAILY [facility] Multivitamins/Vitamin C (Multivitamin Tablet) 1 tab PO DAILY [facility] Omeprazole (Omeprazole 20 Mg Capsule.Dr) 20 mg PO DAILY@0630 [facility] Ondansetron HCl (Ondansetron Hcl 4 Mg/2 Ml Vial) 4 mg IVPUSH Q8H PRN PRN Reason: Nausea and Vomiting Pharmacy Consult (Consult Rx Perform Med Rec) 1 each MISCELLANE ONCE PRN PRN Reason: Consult order Pharmacy Consult (Consult Rx Vancomycin Dosing) 1 each MISCELLANE DAILY PRN PRN Reason: Consult order Pregabalin (Pregabalin 75 Mg Capsule) 75 mg PO BEDTIME [facility] Sodium Chloride (0.9 % Sodium Chloride Flush 3 Ml Syringe) 3 ml IVFLUSH QSHIFT [facility] Vitamin D (Cholecalciferol (Vitamin D3) 25 Mcg Tablet) 50 mcg PO DAILY [facility] Home Medications Medication Instructions Recorded Confirmed Last Taken Type chlorthalidone 25 mg tablet 25 mg PO DAILY 08/01/20 09/16/21 Unknown History enalapril maleate 20 mg tablet 20 mg PO DAILY 08/01/20 09/16/21 Unknown History loratadine 10 mg tablet 10 mg PO DAILY 08/01/20 09/16/21 Unknown History nebivolol 5 mg tablet 5 mg PO DAILY 08/01/20 09/16/21 Unknown History pregabalin 75 mg capsule 75 mg PO BEDTIME 08/01/20 09/16/21 Unknown History albuterol sulfate 90 mcg/actuation 2 puff PO Q4-6H PRN 11/21/20 09/16/21 Unknown History aerosol inhaler blood sugar diagnostic #10 ea 11/21/20 09/16/21 Unknown History fluticasone propionate 110 1 puff INHALATION BID 11/21/20 09/16/21 Unknown History mcg/actuation HFA aerosol inhaler dulaglutide 1.5 mg/0.5 mL 1.5 mg SUBCUT MO@0900 09/16/21 09/16/21 Unknown History subcutaneous pen injector oxycodone-acetaminophen 5 mg-325 1 tab PO Q8H PRN 09/16/21 09/16/21 Unknown History mg tablet pantoprazole 40 mg tablet,delayed 1 tab PO QAM 09/16/21 09/16/21 Unknown History release rosuvastatin 40 mg tablet 40 mg PO BEDTIME 09/16/21 09/16/21 Unknown History Physical Exam Vital Signs: Vital Signs: Last Vital Signs Temp 97.4 F 09/17/21 12:36 Pulse 66 09/17/21 14:06 Resp 16 09/17/21 14:06 BP 125/53 L 09/17/21 14:06 Pulse Ox 99 09/17/21 14:06 BMI result Body Mass Index 39.0 Const: General: comfortable and no acute distress Orientation/consciousness: patient oriented x3 Neck: Neck: Yes no lymphadenopathy Resp: Auscultation: clear to auscultation bilaterally Cardio: Rhythm: regular rhythm GI: Palpation (GI): Soft to palpation, nontender and no guarding Back/Spine/Pelvis: Other: CT drain in place on the left back, output is thick serosanguineous Neuro: General: patient oriented x3 Results Labs Result diagrams: 09/20/21 06:25 09/20/21 06:25 Labs: Abnormal lab results 09/16/21 09/16/21 09/16/21 Range/Units 16:18 18:08 21:42 RBC (4.20-5.50) X10*6/uL Hgb (12.0-16.0) g/dl Hct (37.0-47.0) % Potassium (3.3-5.1) mmol/L Chloride (96-108) mmol/L Carbon Dioxide (22-29) mmol/L POC Glucose 246 H 222 H (60-115) mg/dL Random Glucose (60-115) mg/dL Calcium (8.4-10.2) mg/dL Total Bilirubin (0.0-1.0) mg/dL Direct Bilirubin (0.0-0.5) mg/dL AST (5-31) U/L ALT (0-31) U/L Alkaline Phosphatase (39-117) U/L Troponin I High Sens 60.4 H* (<3.5-17.0) ng/L Total Protein (6.5-8.0) g/dL Albumin (3.5-5.0) g/dL 09/17/21 09/17/21 09/17/21 Range/Units 09:07 13:37 13:37 RBC 3.82 L (4.20-5.50) X10*6/uL Hgb 10.7 L (12.0-16.0) g/dl Hct 32.8 L (37.0-47.0) % Potassium 3.1 L (3.3-5.1) mmol/L Chloride 110 H (96-108) mmol/L Carbon Dioxide 21 L (22-29) mmol/L POC Glucose 249 H (60-115) mg/dL Random Glucose 340 H (60-115) mg/dL Calcium 8.0 L D (8.4-10.2) mg/dL Total Bilirubin 1.5 H (0.0-1.0) mg/dL Direct Bilirubin 0.8 H (0.0-0.5) mg/dL AST 49 H (5-31) U/L ALT 53 H (0-31) U/L Alkaline Phosphatase 166 H D (39-117) U/L Troponin I High Sens (<3.5-17.0) ng/L Total Protein 5.1 L (6.5-8.0) g/dL Albumin 2.8 L (3.5-5.0) g/dL Short CBC 09/17/21 Range/Units 13:37 WBC 9.1 (4.8-10.8) X10*3/uL Hgb 10.7 L (12.0-16.0) g/dl Hct 32.8 L (37.0-47.0) % Plt Count 201 (160-400) X10*3/uL BMP 09/17/21 13:37 Sodium 142 Potassium 3.1 L Chloride 110 H Carbon Dioxide 21 L BUN 12 Creatinine 0.80 Calcium 8.0 L D Liver Function 09/17/21 Range/Units 13:37 Total Bilirubin 1.5 H (0.0-1.0) mg/dL Direct Bilirubin 0.8 H (0.0-0.5) mg/dL AST 49 H (5-31) U/L ALT 53 H (0-31) U/L Alkaline Phosphatase 166 H D (39-117) U/L Albumin 2.8 L (3.5-5.0) g/dL Urine 09/16/21 Range/Units 08:07 Urine Color YELLOW Urine Appearance CLEAR Urine pH 6.0 (5.0-8.0) Ur Specific [place] 1.015 (1.005-1.025) Urine Protein 1+ H (NEG-TRACE) MG/DL Urine Glucose (UA) >=1000 H (NEG) MG/DL All other labs normal. Imaging Abdomen CT scan report/results: report reviewed CT scan - pelvis: report reviewed and image reviewed Assessment and Plan (1) Kidney abscess: Status: Acute She had a CAT scan done for her pyelonephritis and this showed possible ileus as well. She apparently also complained of multiple episodes of vomiting at home along with pains and back pains. She currently denies any abdominal pain pain. She denies any vomiting or nausea currently Her abdominal exam is benign he does not have any tenderness at this time. She can have clear liquids and this can be advanced as tolerated. There is no surgical intervention at this time. She did have her CT drainage for her left kidney done just now. Her drain is in place. Procedures Date of Service Date of Service: 09/17/21
--- NOTE | 2021-09-17 14:37 | PC.NURSE ---
[facility] called. no answer.
--- NOTE | 2021-09-17 14:42 | P.HPHOSP_ITS ---
History of Present Illness Date of Service: 09/17/21 Attending physician on admission: Jorge Francisco Chief Complaint: nasea and vomiting This is a 66 year old female who presented to the emergency department with multiple complaints. Her history was obtained with the assistance of a switch repairer. September 11 she began having bilateral lower back pain, nausea, vomiting, fever, and shaking chills. She hoped her symptoms would improve but her daughter urged her to come to the emergency department. On arrival she was noted to a fever of 103, was tachycardic and had increased respiratory rate meeting sepsis criteria. Urinalysis showed bacteria but otherwise was relatively unremarkable. Chest x-ray was also unremarkable. The initial CT scan of the abdomen showed concern over possible partial SBO, and she was seen by the surgical service who did that this was related to her previous bariatric surgery. Repeat CT scan of the abdomen with contrast revealed concern over marybel lonephritis and possible associated abscess. She denies any urinary frequency or dysuria. She has been having bowel movements She underwent IR guided drainage of the abscess with drainage of purulent material and placement of ORIANA drain. Her blood cultures have also returned positive for gram negative rods. She was treated with IV Zosyn and ceftriaxone and will be admitted to the medical service for further management. Review of Systems Review of Systems: Yes all other systems are reviewed and are negative Constitutional: Constitutional: Reports chills and Reports fever(s) Cardiovascular: Cardiovascular: Denies chest pain Respiratory: Respiratory: Denies cough Gastrointestinal: Gastrointestinal: Denies abdominal pain, Reports nausea and Reports vomiting Genitourinary: Genitourinary: Denies dysuria and Denies urinary urgency [facility] Medical History (Updated 09/17/21 @ 15:02 by JOSE ELIAS Chau) Diabetes type 2, controlled Diabetic polyneuropathy associated with type 2 diabetes mellitus Dyslipidemia History of diverticulosis Hx of diverticulitis of colon Hypertension Vitamin D deficiency Functional capacity: independent ambulation Family History Father Hypertension Mother No problems noted. Son No problems noted. Son No problems noted. Daughter Hypertension Asthma Obesity Muscle spasm Acute depression Sister No problems noted. Sister No problems noted. Brother No problems noted. Brother No problems noted. Brother No problems noted. Brother No problems noted. Brother No problems noted. Surgical History History of carpal tunnel release History of sleeve gastrectomy Hx of cholecystectomy Hx of colonoscopy Hx of excision of mass Hx of foot surgery Hx of tubal ligation Social History (Updated 09/17/21 @ 15:02 by JOSE ELIAS Chau) Alcohol intake: never Patient Tobacco Use Status: Never used Tobacco Advance Directives: Yes Advance Directives Information Provided: Yes Advance Directives on File: No Meds Allergies Allergy/AdvReac Type Severity Reaction Status Date / Time pollen Allergy Unknown shortness Uncoded 02/26/13 00:00 of breath Pt states no food/medication Allergy Unknown Anaphylaxis Uncoded 02/11/21 10:14 a Active Medications: Current Medications Acetaminophen (Acetaminophen 325 Mg Tablet) 650 mg PO Q4H PRN PRN Reason: Pain, Moderate (Pain Scale 4-6 Acetaminophen (Acetaminophen Supp 650 Mg Supp.Rect) 650 mg [place] Q6H PRN PRN Reason: Pain, Mild (Pain Scale 1-3) Albuterol Sulfate (Albuterol Sulfate 90 Mcg 8 Gm Inhaler) 2 puff INHALE Q4H PRN PRN Reason: dyspnea Calcium Carbonate/Cholecalciferol (Calcium + Vitamin D 250 Mg Tablet) 500 mg PO BID [facility] Dextrose (Dextrose 50 % 25 Gm/50 Ml Vial) 25 gm IVPUSH Q15M PRN; Protocol PRN Reason: per Hypoglycemia Standing Ord. Docusate Sodium (Docusate Sodium 100 Mg Capsule) 100 mg PO DAILY PRN PRN Reason: Constipation Famotidine (Famotidine 20 Mg Tablet) 40 mg PO DAILY [facility] Fluticasone Propionate (Fluticasone Propionate 100 Mcg Blst.W.Dev) 1 puff INHALE RBID [facility] Last Admin: 09/17/21 08:32 Dose: Not Given Documented by: Glucose (Glucose Gel 15 Gm Gel..Gram.) 15 gm PO Q15M PRN; Protocol PRN Reason: per Hypoglycemia Standing Ord. Heparin Sodium (Porcine) (Heparin Sodium,Porcine 5,000 Unit/Ml Vial) 5,000 unit SUBCUT Q12H [facility] Lactated Ringer's (Lr) 1,000 mls @ 100 mls/hr IVCONT .Q10H [facility] Last Admin: 09/17/21 09:02 Dose: 125 mls/hr Documented by: Piperacillin Sod/Tazobactam (Sod 3.375 gm/ Sodium Chloride) 50 mls @ 100 mls/hr IV Q6H [facility] Last Admin: 09/17/21 09:02 Dose: 100 mls/hr Documented by: Insulin Human Lispro (Insulin Lispro 100 Unit/Ml 3 Ml Vial) 0 unit SUBCUT QIDACHS [facility]; Protocol Loratadine (Loratadine 10 Mg Tablet) 10 mg PO DAILY [facility] Multivitamins/Vitamin C (Multivitamin Tablet) 1 tab PO DAILY [facility] Omeprazole (Omeprazole 20 Mg Capsule.Dr) 20 mg PO DAILY@0630 [facility] Ondansetron HCl (Ondansetron Hcl 4 Mg/2 Ml Vial) 4 mg IVPUSH Q8H PRN PRN Reason: Nausea and Vomiting Pharmacy Consult (Consult Rx Perform Med Rec) 1 each MISCELLANE ONCE PRN PRN Reason: Consult order Pharmacy Consult (Consult Rx Vancomycin Dosing) 1 each MISCELLANE DAILY PRN PRN Reason: Consult order Pregabalin (Pregabalin 75 Mg Capsule) 75 mg PO BEDTIME [facility] Sodium Chloride (0.9 % Sodium Chloride Flush 3 Ml Syringe) 3 ml IVFLUSH QSHIFT [facility] Vitamin D (Cholecalciferol (Vitamin D3) 25 Mcg Tablet) 50 mcg PO DAILY [facility] Home Medications Medication Instructions Recorded Confirmed Last Taken Type chlorthalidone 25 mg tablet 25 mg PO DAILY 08/01/20 09/16/21 Unknown History enalapril maleate 20 mg tablet 20 mg PO DAILY 08/01/20 09/16/21 Unknown History loratadine 10 mg tablet 10 mg PO DAILY 08/01/20 09/16/21 Unknown History nebivolol 5 mg tablet 5 mg PO DAILY 08/01/20 09/16/21 Unknown History pregabalin 75 mg capsule 75 mg PO BEDTIME 08/01/20 09/16/21 Unknown History albuterol sulfate 90 mcg/actuation 2 puff PO Q4-6H PRN 11/21/20 09/16/21 Unknown History aerosol inhaler blood sugar diagnostic #10 ea 11/21/20 09/16/21 Unknown History fluticasone propionate 110 1 puff INHALATION BID 11/21/20 09/16/21 Unknown History mcg/actuation HFA aerosol inhaler dulaglutide 1.5 mg/0.5 mL 1.5 mg SUBCUT MO@0900 09/16/21 09/16/21 Unknown History subcutaneous pen injector oxycodone-acetaminophen 5 mg-325 1 tab PO Q8H PRN 09/16/21 09/16/21 Unknown History mg tablet pantoprazole 40 mg tablet,delayed 1 tab PO QAM 09/16/21 09/16/21 Unknown History release rosuvastatin 40 mg tablet 40 mg PO BEDTIME 09/16/21 09/16/21 Unknown History Physical Exam Vital Signs and Narrative: Vital Signs: Last Vital Signs Temp 98.7 F 09/17/21 14:36 Pulse 68 09/17/21 14:36 Resp 16 09/17/21 14:36 BP 98/44 L 09/17/21 14:36 Pulse Ox 98 09/17/21 14:36 BMI result Body Mass Index 39.0 Results Labs CBC and Chem 7: 09/17/21 13:37 09/17/21 13:37 Labs: Laboratory Results - last 24 hr 09/16/21 09/16/21 09/16/21 16:18 16:18 18:08 MCV MCH MCHC RDW Plt Count MPV Absolute Nucleated RBC Nucleated RBC % (auto) PT 12.4 INR 1.1 APTT 29.2 Anion Gap Estim Creat Clear Calc Estimated GFR POC Glucose 246 H Random Glucose Calcium Total Bilirubin Direct Bilirubin AST ALT Alkaline Phosphatase Troponin I High Sens 60.4 H* Total Protein Albumin 09/16/21 09/17/21 09/17/21 21:42 09:07 13:37 MCV 85.9 MCH 28.0 MCHC 32.6 RDW 13.2 Plt Count 201 MPV 10.2 Absolute Nucleated RBC 0.000 Nucleated RBC % (auto) 0.0 PT INR APTT Anion Gap Estim Creat Clear Calc Estimated GFR POC Glucose 222 H 249 H Random Glucose Calcium Total Bilirubin Direct Bilirubin AST ALT Alkaline Phosphatase Troponin I High Sens Total Protein Albumin 09/17/21 13:37 MCV MCH MCHC RDW Plt Count MPV Absolute Nucleated RBC Nucleated RBC % (auto) PT INR APTT Anion Gap 14 Estim Creat Clear Calc 80.1 Estimated GFR > 60 POC Glucose Random Glucose 340 H Calcium 8.0 L D Total Bilirubin 1.5 H Direct Bilirubin 0.8 H AST 49 H ALT 53 H Alkaline Phosphatase 166 H D Troponin I High Sens Total Protein 5.1 L Albumin 2.8 L Imaging Radiologist's Impressions: Impressions Abdomen/Pelvis CT 09/16/21 14:14 IMPRESSION: Findings suspicious for left pyelonephritis and question infected adjacent cyst and less likely abscess. Probable localized small bowel ileus left abdomen. Fleischner guidelines were followed. Assessment and Plan (1) Gram-negative bacteremia: Status: Acute (2) Kidney abscess: Status: Acute (3) Sepsis: Status: Acute This is a 66 Marshallese-speaking female with history of diabetes, hypertension, hyperlipidemia, asthma, sleep gastrectomy who presents to the emergency department with nausea vomiting fever chills found to have sepsis secondary to pyelonephritis with renal abscess Sepsis secondary to pyelonephritis/renal abscess met sepsis criteria with fever, tachycardia and increased respiratory rate LA 1.7 severe features with elevated bilirubin received 30 cc/kg bolus based on ideal body weight pyelonephritis/renal abscess ua fairly bland, no urine culture s/p IR guided drainage and ORIANA drain placement continue IV zosyn follow up fluid culture ID consult gram negative bulmaro bacteremia r/t above continue iv zosyn follow final sensitivities hypokalemia k 3.1 replace and follow elevated LFTs likely secondary to sepsis trending down follow elevated trop no chest pain; ekg non-specific changes trops flat likely secondary to sepsis Diabetes trulicity non-formulary hold metformin SSI, POCs, ADA diet HTN BP soft and in setting of sepsis with hold home meds (chlorthalidone, enalapril, bystolic) monitor BP closely HLD hold statin, zetia gerd on pantoprazole and pepcid asthma no acute exacerbation continue home inhalers peripheral neuropathy continue lyrica dvt ppx - haparin code status - full code attending - dr. francisco Quality Stroke Does the patient have a stroke diagnosis?: No VTE Prior VTE?: No VTE Risk Level:: Medical - moderate - high VTE Device Contraindication: N/A - Device Ordered VTE Drug Contraindication: N/A - Med Ordered
--- NOTE | 2021-09-17 14:52 | PC.NURSE ---
rn to rn with michi on [facility]. pt to be transfered directly from [facility].
[2021-09-17] MEDS: Potassium Chloride Packet 20 MEQ PACKET 40 MEQ PO (15:35)
[2021-09-17 16:43] LABS: Glucose, Whole Blood 233 mg/dL (60-115)
[2021-09-17] MEDS: Insulin Lispro 100 UNIT/ML 3 ML VIAL SUBCUT ×2 (17:20→21:07)
[2021-09-17] MEDS: Fluticasone Propionate 100 MCG BLST.W.DEV 1 PUFF INHALE (20:09)
[2021-09-17 20:10] LABS: Glucose, Whole Blood 222 mg/dL (60-115)
[2021-09-17] MEDS: Calcium + Vitamin D 250 MG TABLET 500 MG PO (21:08)
[2021-09-17] MEDS: Pregabalin 75 MG CAPSULE PO (21:08)
[2021-09-17] MEDS: Heparin Sodium,Porcine 5,000 UNIT/ML VIAL 5000 UNIT SUBCUT (21:08)
[2021-09-18] VITALS (7 sets, daily range): BP systolic 117–142; BP diastolic 57–63; PULSE 63–78; RESP 16–20; TEMP 35.6–37.3; O2SAT 98–100
[2021-09-18] MEDS: 0.9 % Sodium Chloride Flush 3 ML SYRINGE IVFLUSH ×3 (01:07→20:45)
[2021-09-18] MEDS: Piperacillin Sodium/Tazobactam 3.375 GM in 0.9 % Sodium Chloride 50 ML IV ×4 (01:07→20:44)
[2021-09-18 05:07] LABS: MANUAL DIFF FLAG NO
[2021-09-18] MEDS: Lactated Ringers 1,000 ML 100 ML IVCONT ×2 (05:07→14:27)
[2021-09-18] MEDS: Omeprazole 20 MG CAPSULE.DR PO (05:08)
[2021-09-18 05:10] LABS: Basophils Percent Auto 0.3 % (0-2); Eosinophils Absolute Auto 0.1 X10*3/uL (0.0-0.4); Eosinophils Percent Auto 1.6 % (0-4); Hematocrit 35.1 % (37.0-47.0); Hemoglobin 11.5 g/dl (12.0-16.0); Imm Gran Abs Auto 0.04 X10*3/uL (0.00-0.03); Imm Gran Pct Auto 0.6 % (0.0-0.4); Lymphocytes Percent Auto 14.6 % (20-40); Mean Corpuscular HGB Conc 32.8 g/dl (31.0-35.0); Mean Corpuscular Hemoglobin 27.8 pg (27.0-33.0); Mean Corpuscular Volume 84.8 fL (80.0-98.0); Mean Platelet Volume 10.2 fL (9.4-12.3); Monocytes Absolute Auto 0.5 X10*3/uL (0.1-1.2); Neutrophils Absolute Auto 5.2 x10*3/uL (2.0-8.3); Neutrophils Percent Auto 75.9 % (45-73); Platelet Count 187 X10*3/uL (160-400); Red Blood Count 4.14 X10*6/uL (4.20-5.50); Red Cell Distribution Width 13.4 % (11.0-16.0); White Blood Count 6.9 X10*3/uL (4.8-10.8)
[2021-09-18 05:24] LABS: Anion Gap 9 (12-20); Blood Urea Nitrogen 9 mg/dL (9-16); Calcium 8.5 mg/dL (8.4-10.2); Carbon Dioxide 27 mmol/L (22-29); Chloride 108 mmol/L (96-108); Creatinine Clr Calc Pharmacy 105.1; Estimated Glomerular Filt Rate > 60; Glucose Random 179 mg/dL (60-115); Potassium 3.4 mmol/L (3.3-5.1); Sodium 141 mmol/L (135-145)
[2021-09-18 07:43] LABS: Glucose, Whole Blood 159 mg/dL (60-115)
[2021-09-18] MEDS: Fluticasone Propionate 100 MCG BLST.W.DEV 1 PUFF INHALE ×2 (07:59→19:56)
[2021-09-18] MEDS: Insulin Lispro 100 UNIT/ML 3 ML VIAL SUBCUT ×3 (08:04→20:45)
[2021-09-18] MEDS: Famotidine 20 MG TABLET 40 MG PO (09:38)
[2021-09-18] MEDS: Multivitamin TABLET 1 TAB PO (09:38)
[2021-09-18] MEDS: Heparin Sodium,Porcine 5,000 UNIT/ML VIAL 5000 UNIT SUBCUT ×2 (09:38→20:44)
[2021-09-18] MEDS: Cholecalciferol (Vitamin D3) 25 MCG TABLET 50 MCG PO (09:39)
[2021-09-18] MEDS: Loratadine 10 MG TABLET PO (09:39)
[2021-09-18] MEDS: Calcium + Vitamin D 250 MG TABLET 500 MG PO ×2 (09:39→20:44)
--- NOTE | 2021-09-18 10:31 | P.PNIM_ITS ---
Subjective Subjective Date of Service: 09/18/21 Interval History: seen and examined this morning follow up for sepsis/bacteremia/pyelo with kidney abscess some pain at site of ORIANA drain, otherwise no abdominal pain still having nausea, no vomiting Review of Systems Review of Systems: Yes all other systems are reviewed and are negative Constitutional Constitutional: Denies chills and Denies fever(s) Cardiovascular Cardiovascular: Denies chest pain Respiratory Respiratory: Denies cough Physical Exam Verdana 4l Vital Signs: Verdana 4d Verdana 4d Vital Signs: Verdana 4d Verdana 4Bd Last Vital Signs Verdana 4d Sheet Pile Hammer Operator New 4d Sheet Pile Hammer Operator New 4d Temp 99.1 F 09/18/21 08:00 Sheet Pile Hammer Operator New 4d Pulse 72 09/18/21 08:00 Sheet Pile Hammer Operator NewNew 4d Resp 18 09/18/21 08:00 BP 122/61 09/18/21 08:00 Pulse Ox 100 09/18/21 08:00 BMI result Body Mass Index 39.0 Const: General: cooperative, comfortable, no acute distress, alert and awake Nutritional Appearance: well nourished Orientation/consciousness: patient oriented x3 HENMT: Head: Yes normocephalic and Yes atraumatic Eyes: Sclerae: sclerae normal Pupils: Equal, round and reactive pupils present Resp: Effort & Inspection: normal respiratory effort and no respiratory distress Cardio: Rate: regular rate Rhythm: regular rhythm GI: Other: left posterior ORIANA with scant output Inspection: No distended Palpation (GI): Soft to palpation and nontender Neuro: General: patient oriented x3 Cranial nerves: Yes CN's II-XII intact bilaterally, Yes Equal, round and reactive pupils present and Yes Bilaterally intact EOM present Extrem: Other: Able to move all 4 extremities spontaneously, no lower extremity edema Objective Data Active Medications Acetaminophen (Acetaminophen 325 Mg Tablet) 650 mg PO Q4H PRN PRN Reason: Pain, Moderate (Pain Scale 4-6 Acetaminophen (Acetaminophen Supp 650 Mg Supp.Rect) 650 mg SC Q6H PRN PRN Reason: Pain, Mild (Pain Scale 1-3) Albuterol Sulfate (Albuterol Sulfate 90 Mcg 8 Gm Inhaler) 2 puff INHALE Q4H PRN PRN Reason: dyspnea Calcium Carbonate/Cholecalciferol (Calcium + Vitamin D 250 Mg Tablet) 500 mg PO BID [facility] Last Admin: 09/18/21 09:39 Dose: 500 mg Documented by: SAE Dextrose (Dextrose 50 % 25 Gm/50 Ml Vial) 25 gm IVPUSH Q15M PRN; Protocol PRN Reason: per Hypoglycemia Standing Ord. Docusate Sodium (Docusate Sodium 100 Mg Capsule) 100 mg PO DAILY PRN PRN Reason: Constipation Famotidine (Famotidine 20 Mg Tablet) 40 mg PO DAILY [facility] Last Admin: 09/18/21 09:38 Dose: 40 mg Documented by: SAE Fluticasone Propionate (Fluticasone Propionate 100 Mcg Blst.W.Dev) 1 puff INHALE RBID [facility] Last Admin: 09/18/21 07:59 Dose: 1 puff Documented by: NICOLAS Glucose (Glucose Gel 15 Gm Gel..Gram.) 15 gm PO Q15M PRN; Protocol PRN Reason: per Hypoglycemia Standing Ord. Heparin Sodium (Porcine) (Heparin Sodium,Porcine 5,000 Unit/Ml Vial) 5,000 unit SUBCUT Q12H [facility] Last Admin: 09/18/21 09:38 Dose: 5,000 unit Documented by: SAE Lactated Ringer's (Lr) 1,000 mls @ 100 mls/hr IVCONT .Q10H [facility] Last Admin: 09/18/21 05:07 Dose: 100 mls/hr Documented by: NAILA Piperacillin Sod/Tazobactam (Sod 3.375 gm/ Sodium Chloride) 50 mls @ 100 mls/hr IV Q6H [facility] Last Infusion: 09/18/21 10:24 Dose: 0 mls/hr Documented by: SAE Insulin Human Lispro (Insulin Lispro 100 Unit/Ml 3 Ml Vial) 0 unit SUBCUT QIDAC [facility]; Protocol Last Admin: 09/18/21 08:04 Dose: 2 unit Documented by: SAE Loratadine (Loratadine 10 Mg Tablet) 10 mg PO DAILY [facility] Last Admin: 09/18/21 09:39 Dose: 10 mg Documented by: SAE Multivitamins/Vitamin C (Multivitamin Tablet) 1 tab PO DAILY [facility] Last Admin: 09/18/21 09:38 Dose: 1 tab Documented by: SAE Omeprazole (Omeprazole 20 Mg Anais.) 20 mg PO DAILY@0630 [facility] Last Admin: 09/18/21 05:08 Dose: 20 mg Documented by: NAILA Ondansetron HCl (Ondansetron Hcl 4 Mg/2 Ml Vial) 4 mg IVPUSH Q8H PRN PRN Reason: Nausea and Vomiting Pharmacy Consult (Consult Rx Perform Med Rec) 1 each MISCELLANE ONCE PRN PRN Reason: Consult order Pharmacy Consult (Consult Rx Vancomycin Dosing) 1 each MISCELLANE DAILY PRN PRN Reason: Consult order Pregabalin (Pregabalin 75 Mg Capsule) 75 mg PO BEDTIME [facility] Last Admin: 09/17/21 21:08 Dose: 75 mg Documented by: SANJU Sodium Chloride (0.9 % Sodium Chloride Flush 3 Ml Syringe) 3 ml IVFLUSH QSHIFT [facility] Last Admin: 09/18/21 08:04 Dose: 3 ml Documented by: SAE Vitamin D (Cholecalciferol (Vitamin D3) 25 Mcg Tablet) 50 mcg PO DAILY [facility] Last Admin: 09/18/21 09:39 Dose: 50 mcg Documented by: SAE Labs CBC & Chem 7: 09/18/21 04:53 09/18/21 04:53 Labs: Laboratory Results - last 24 hr 09/17/21 09/17/21 09/17/21 13:37 13:37 16:34 MCV 85.9 MCH 28.0 MCHC 32.6 RDW 13.2 Plt Count 201 MPV 10.2 Immature Gran % (Auto) Neut % (Auto) Lymph % (Auto) Cherry % (Auto) Eos % (Auto) Baso % (Auto) Lymph # (Auto) Cherry # (Auto) Eos # (Auto) Baso # (Auto) Abs Immat Gran (auto) Absolute Neuts (auto) Absolute Nucleated RBC 0.000 Nucleated RBC % (auto) 0.0 Anion Gap 14 Estim Creat Clear Calc 80.1 Estimated GFR > 60 POC Glucose 233 H Random Glucose 340 H Calcium 8.0 L D Total Bilirubin 1.5 H Direct Bilirubin 0.8 H AST 49 H ALT 53 H Alkaline Phosphatase 166 H D Total Protein 5.1 L Albumin 2.8 L 09/17/21 09/18/21 09/18/21 20:01 04:53 04:53 MCV 84.8 MCH 27.8 MCHC 32.8 RDW 13.4 Plt Count 187 MPV 10.2 Immature Gran % (Auto) 0.6 H Neut % (Auto) 75.9 H Lymph % (Auto) 14.6 L Cherry % (Auto) 7.0 Eos % (Auto) 1.6 Baso % (Auto) 0.3 Lymph # (Auto) 1.0 L Cherry # (Auto) 0.5 Eos # (Auto) 0.1 Baso # (Auto) 0.0 Abs Immat Gran (auto) 0.04 H Absolute Neuts (auto) 5.2 Absolute Nucleated RBC 0.000 Nucleated RBC % (auto) 0.0 Anion Gap 9 L Estim Creat Clear Calc 105.1 Estimated GFR > 60 POC Glucose 222 H Random Glucose 179 H Calcium 8.5 D Total Bilirubin Direct Bilirubin AST ALT Alkaline Phosphatase Total Protein Albumin 09/18/21 07:36 MCV MCH MCHC RDW Plt Count MPV Immature Gran % (Auto) Neut % (Auto) Lymph % (Auto) Cherry % (Auto) Eos % (Auto) Baso % (Auto) Lymph # (Auto) Cherry # (Auto) Eos # (Auto) Baso # (Auto) Abs Immat Gran (auto) Absolute Neuts (auto) Absolute Nucleated RBC Nucleated RBC % (auto) Anion Gap Estim Creat Clear Calc Estimated GFR POC Glucose 159 H Random Glucose Calcium Total Bilirubin Direct Bilirubin AST ALT Alkaline Phosphatase Total Protein Albumin Microbiology Microbiology Results: Microbiology 09/16/21 08:36 Blood Culture - Final Blood - Venous Escherichia coli 09/16/21 07:39 Blood Culture - Final Blood - Venous Escherichia coli 09/17/21 11:57 Gram Stain - Final Abscess Intra-abdominal Assessment and Plan (1) Sepsis: Status: Acute (2) Kidney abscess: Status: Acute (3) Gram-negative bacteremia: Status: Acute (4) Elevated LFTs: Status: Acute Assessment and Plan: This is a 66 Malay-speaking female with history of diabetes, hypertension, hyperlipidemia, asthma, sleeve gastrectomy who presents to the emergency department with nausea vomiting fever chills found to have sepsis secondary to pyelonephritis with renal abscess Sepsis secondary to pyelonephritis/renal abscess met sepsis criteria with fever, tachycardia and increased respiratory rate LA 1.7 severe features with elevated bilirubin received 30 cc/kg bolus based on ideal body weight pyelonephritis/left renal abscess ua fairly bland, no urine culture s/p IR guided drainage and ORIANA drain placement continue IV zosyn follow up fluid culture ID consult pending gram negative bulmaro bacteremia 2/2 BCx from 09/16 growing e.coli r/t above continue iv zosyn follow final sensitivities hypokalemia improved with replacement elevated LFTs likely secondary to sepsis trending down follow elevated trop no chest pain; ekg non-specific changes trops flat likely secondary to sepsis Diabetes trulicity non-formulary hold metformin SSI, POCs, ADA diet HTN BP soft and in setting of sepsis with hold home meds (chlorthalidone, enalapril, bystolic) monitor BP closely HLD hold statin, zetia gerd on pantoprazole and pepcid asthma no acute exacerbation continue home inhalers peripheral neuropathy continue lyrica dvt ppx - haparin code status - full code attending -?[facility] Quality Stroke Does the patient have a stroke diagnosis?: No VTE Prior VTE?: No VTE Risk Level:: Medical - moderate - high VTE Device Contraindication: N/A - Device Ordered VTE Drug Contraindication: N/A - Med Ordered
[2021-09-18 11:53] LABS: Glucose, Whole Blood 159 mg/dL (60-115)
[2021-09-18] MEDS: Acetaminophen 325 MG TABLET 650 MG PO (14:20)
[2021-09-18 16:08] LABS: Glucose, Whole Blood 150 mg/dL (60-115)
--- NOTE | 2021-09-18 16:16 | MHC.CM.PN ---
CM CALLED PTS DAUGHTER, CLARIBEL [phone]. SHE REPORTS SHE IS PTS [employer] TH[employer]OUGH [employer] SHE REPORTS THEY ALSO HAVE A NURSE THAT CHECKS IN OCCASIONALLY CLARIBEL REPORTS THE PT HAS A WALKER AT HOME BUT DOES NOT USE IT AT THIS TIME SHE REPORTS THE PT DOES NOT HAVE A HCP SHE CONFIRMS THE PTS PCP IS LATESHA RUTLEDGE DELIVERED VIA TC CM MET WITH PT AND PROVIDED HER WITH A COPY OF HER MEDICARE RIGHTS CM ALSO DISCUSSED THE IMPORTANCE OF A HCP WITH THE ASSISTANCE OF A [facility] PT COMPLETED A HCP TODAY NAMING HER DAUGHTER, CLARIBEL AND HER SON, AL, HER AGENTS. CURRENT DC PLAN IS HOME WITH RESUMPTION OF [employer] CARE CLARIBEL TO TRANSPORT
[2021-09-18 20:43] LABS: Glucose, Whole Blood 171 mg/dL (60-115)
[2021-09-18] MEDS: Pregabalin 75 MG CAPSULE PO (20:45)
--- NOTE | 2021-09-18 21:34 | P.CNID_ITS ---
History of Present Illness Data of Consult Service Date: 09/18/21 Requesting physician: Sandy Partida Primary Care Provider: Audrey Calvo MD [facility] Reason for consult: sepsis,gram negative organisms She presents to hospital with 5/10 abdominal discomfort upper abdomen for five days She has CT scan show renal abscess She is getting IR drainage She has blood culture E coli Review of Systems Review of Systems: Yes all other systems are reviewed and are negative PMFSH Past Medical History Medical History Diabetes type 2, controlled Diabetic polyneuropathy associated with type 2 diabetes mellitus Dyslipidemia History of diverticulosis Hx of diverticulitis of colon Hypertension Vitamin D deficiency Functional capacity: independent ambulation Family History Family History Father Hypertension Mother No problems noted. Son No problems noted. Son No problems noted. Daughter Hypertension Asthma Obesity Muscle spasm Acute depression Sister No problems noted. Sister No problems noted. Brother No problems noted. Brother No problems noted. Brother No problems noted. Brother No problems noted. Brother No problems noted. Surgical History Surgical History History of carpal tunnel release History of sleeve gastrectomy Hx of cholecystectomy Hx of colonoscopy Hx of excision of mass Hx of foot surgery Hx of tubal ligation Social History Social History Household Members: Family Housing: Apartment Do you presently have visiting nurse or other home services: Yes Alcohol intake: never Patient Tobacco Use Status: Never used Tobacco Use of substances other than those prescribed or required for medical reasons: No Currently Displaying Signs/Symptoms of Drug Intoxication Withdrawal: No Have you been hit, kicked, punched, or otherwise hurt by someone within the past year? If so, by whom?: No Do you feel safe in your current relationship?: No Current Relationship Is there a partner from a previous relationship who is making you feel unsafe now?: No Are you made to feel afraid or neglected: No Advance Directives: Yes Advance Directives Information Provided: Yes Advance Directives on File: No Advance Directives Date on File: 09/17/21 Do you have thoughts of harming others: None Do you have a plan to hurt others: No Plan Recently lost weight without trying: No Eating poorly because of decreased appetite: No Nutrition Risks: No Nutritional Risk Patient : No : No Poor oral hygiene: No service: No Current occupational status: unemployed Meds Allergies Allergy/AdvReac Type Severity Reaction Status Date / Time pollen Allergy Unknown shortness Uncoded 09/17/21 16:13 of breath Pt states no food/medication Allergy Unknown Anaphylaxis Uncoded 09/17/21 16:13 a Active Medications: Current Medications Acetaminophen (Acetaminophen 325 Mg Tablet) 650 mg PO Q4H PRN PRN Reason: Pain, Moderate (Pain Scale 4-6 Last Admin: 09/18/21 14:20 Dose: 650 mg Documented by: Acetaminophen (Acetaminophen Supp 650 Mg Supp.Rect) 650 mg MD Q6H PRN PRN Reason: Pain, Mild (Pain Scale 1-3) Albuterol Sulfate (Albuterol Sulfate 90 Mcg 8 Gm Inhaler) 2 puff INHALE Q4H PRN PRN Reason: dyspnea Calcium Carbonate/Cholecalciferol (Calcium + Vitamin D 250 Mg Tablet) 500 mg PO BID [facility] Last Admin: 09/18/21 20:44 Dose: 500 mg Documented by: Dextrose (Dextrose 50 % 25 Gm/50 Ml Vial) 25 gm IVPUSH Q15M PRN; Protocol PRN Reason: per Hypoglycemia Standing Ord. Docusate Sodium (Docusate Sodium 100 Mg Capsule) 100 mg PO DAILY PRN PRN Reason: Constipation Famotidine (Famotidine 20 Mg Tablet) 40 mg PO DAILY [facility] Last Admin: 09/18/21 09:38 Dose: 40 mg Documented by: Fluticasone Propionate (Fluticasone Propionate 100 Mcg Blst.W.Dev) 1 puff INHALE RBID [facility] Last Admin: 09/18/21 19:56 Dose: 1 puff Documented by: Glucose (Glucose Gel 15 Gm Gel..Gram.) 15 gm PO Q15M PRN; Protocol PRN Reason: per Hypoglycemia Standing Ord. Heparin Sodium (Porcine) (Heparin Sodium,Porcine 5,000 Unit/Ml Vial) 5,000 unit SUBCUT Q12H [facility] Last Admin: 09/18/21 20:44 Dose: 5,000 unit Documented by: Lactated Ringer's (Lr) 1,000 mls @ 100 mls/hr IVCONT .Q10H [facility] Last Admin: 09/18/21 14:27 Dose: 100 mls/hr Documented by: Piperacillin Sod/Tazobactam (Sod 3.375 gm/ Sodium Chloride) 50 mls @ 100 mls/hr IV Q6H [facility] Last Infusion: 09/18/21 21:19 Dose: Infused Documented by: Insulin Human Lispro (Insulin Lispro 100 Unit/Ml 3 Ml Vial) 0 unit SUBCUT QIDACHS [facility]; Protocol Last Admin: 09/18/21 20:45 Dose: 2 unit Documented by: Loratadine (Loratadine 10 Mg Tablet) 10 mg PO DAILY [facility] Last Admin: 09/18/21 09:39 Dose: 10 mg Documented by: Multivitamins/Vitamin C (Multivitamin Tablet) 1 tab PO DAILY [facility] Last Admin: 09/18/21 09:38 Dose: 1 tab Documented by: Omeprazole (Omeprazole 20 Mg Capsule.) 20 mg PO DAILY@0630 [facility] Last Admin: 09/18/21 05:08 Dose: 20 mg Documented by: Ondansetron HCl (Ondansetron Hcl 4 Mg/2 Ml Vial) 4 mg IVPUSH Q8H PRN PRN Reason: Nausea and Vomiting Pharmacy Consult (Consult Rx Perform Med Rec) 1 each MISCELLANE ONCE PRN PRN Reason: Consult order Pharmacy Consult (Consult Rx Vancomycin Dosing) 1 each MISCELLANE DAILY PRN PRN Reason: Consult order Pregabalin (Pregabalin 75 Mg Capsule) 75 mg PO BEDTIME [facility] Last Admin: 09/18/21 20:45 Dose: 75 mg Documented by: Sodium Chloride (0.9 % Sodium Chloride Flush 3 Ml Syringe) 3 ml IVFLUSH QSHIFT [facility] Last Admin: 09/18/21 20:45 Dose: 3 ml Documented by: Vitamin D (Cholecalciferol (Vitamin D3) 25 Mcg Tablet) 50 mcg PO DAILY [facility] Last Admin: 09/18/21 09:39 Dose: 50 mcg Documented by: Home Medications Medication Instructions Recorded Confirmed Last Taken Type chlorthalidone 25 mg tablet 25 mg PO DAILY 08/01/20 09/16/21 Unknown History enalapril maleate 20 mg tablet 20 mg PO DAILY 08/01/20 09/16/21 Unknown History loratadine 10 mg tablet 10 mg PO DAILY 08/01/20 09/16/21 Unknown History nebivolol 5 mg tablet 5 mg PO DAILY 08/01/20 09/16/21 Unknown History pregabalin 75 mg capsule 75 mg PO BEDTIME 08/01/20 09/16/21 Unknown History albuterol sulfate 90 mcg/actuation 2 puff PO Q4-6H PRN 11/21/20 09/16/21 Unknown History aerosol inhaler blood sugar diagnostic #10 ea 11/21/20 09/16/21 Unknown History fluticasone propionate 110 1 puff INHALATION BID 11/21/20 09/16/21 Unknown History mcg/actuation HFA aerosol inhaler dulaglutide 1.5 mg/0.5 mL 1.5 mg SUBCUT MO@0900 09/16/21 09/16/21 Unknown History subcutaneous pen injector oxycodone-acetaminophen 5 mg-325 1 tab PO Q8H PRN 09/16/21 09/16/21 Unknown History mg tablet pantoprazole 40 mg tablet,delayed 1 tab PO QAM 09/16/21 09/16/21 Unknown History release rosuvastatin 40 mg tablet 40 mg PO BEDTIME 09/16/21 09/16/21 Unknown History Physical Exam Vital Signs: Vital Signs: Last Vital Signs Temp 97.5 F 09/18/21 20:00 Pulse 63 09/18/21 20:00 Resp 20 09/18/21 20:00 BP 130/62 09/18/21 20:00 Pulse Ox 98 09/18/21 20:00 BMI result Body Mass Index 39.0 Const: General: cooperative Orientation/consciousness: patient oriented x3 Eyes: General: appearance normal, both eyes and all related structures Resp: Effort & Inspection: normal respiratory effort Cardio: Rate: regular rate Rhythm: regular rhythm GI: Palpation (GI): Tenderness to palpation present (GI) (LLQ) Skin: General skin exam: no rashes or lesions noted Neuro: General: patient oriented x3 and no focal motor deficits Extrem: General: Yes normal to inspection Results Labs CBC & Chem 7: 09/19/21 06:31 09/19/21 06:31 Labs: Short CBC 09/18/21 Range/Units 04:53 WBC 6.9 (4.8-10.8) X10*3/uL Hgb 11.5 L (12.0-16.0) g/dl Hct 35.1 L (37.0-47.0) % Plt Count 187 (160-400) X10*3/uL BMP 09/18/21 04:53 Sodium 141 Potassium 3.4 Chloride 108 Carbon Dioxide 27 BUN 9 Creatinine 0.61 Calcium 8.5 D Microbiology Microbiology Results: Microbiology 09/17/21 11:57 Abscess Intra-abdominal Gram Stain - Final 09/17/21 11:57 Abscess Intra-abdominal Routine Culture - Preliminary Culture in progress. 09/17/21 11:57 Abscess Intra-abdominal Anaerobic Culture - Preliminary Culture in progress. 09/16/21 08:36 Blood - Venous Blood Culture - Final Escherichia coli 09/16/21 07:39 Blood - Venous Blood Culture - Final Escherichia coli Assessment and Plan (1) Sepsis: Status: Acute There is gram negative sepsis kidney source IR drainage is to occur tomorrow (2) Kidney abscess: Status: Acute (3) Gram-negative bacteremia: Status: Acute Continue Zosyn as covers possible anerobic component although doubt Can narrow to Ceftriaxone after procedure likely next day or two. Urology evaluation is important as if patient becomes more septic and worsens may need nephrectomy in most severe cases.
[2021-09-18] MEDS: oxyCODONE HCl Immed Release 5 MG TABLET PO (21:48)
[2021-09-19] VITALS (8 sets, daily range): BP systolic 105–142; BP diastolic 48–72; PULSE 66–88; RESP 8–20; TEMP 36.2–36.7; O2SAT 97–100
[2021-09-19] MEDS: Piperacillin Sodium/Tazobactam 3.375 GM in 0.9 % Sodium Chloride 50 ML IV ×2 (01:33→08:04)
[2021-09-19] MEDS: Lactated Ringers 1,000 ML 100 ML IVCONT (01:39)
[2021-09-19] MEDS: Omeprazole 20 MG CAPSULE.DR PO (06:15)
[2021-09-19 07:20] LABS: Basophils Percent Auto 0.7 % (0-2); Eosinophils Absolute Auto 0.1 X10*3/uL (0.0-0.4); Eosinophils Percent Auto 3.3 % (0-4); Hematocrit 32.6 % (37.0-47.0); Hemoglobin 10.7 g/dl (12.0-16.0); Imm Gran Abs Auto 0.07 X10*3/uL (0.00-0.03); Imm Gran Pct Auto 1.6 % (0.0-0.4); Lymphocytes Absolute Auto 1.4 X10*3/uL (1.2-4.9); Lymphocytes Percent Auto 32.5 % (20-40); MANUAL DIFF FLAG SCAN; Mean Corpuscular HGB Conc 32.8 g/dl (31.0-35.0); Mean Corpuscular Hemoglobin 27.7 pg (27.0-33.0); Mean Corpuscular Volume 84.5 fL (80.0-98.0); Mean Platelet Volume 10.6 fL (9.4-12.3); Monocytes Absolute Auto 0.5 X10*3/uL (0.1-1.2); Monocytes Percent Auto 10.6 % (2-11); Neutrophils Absolute Auto 2.2 x10*3/uL (2.0-8.3); Neutrophils Percent Auto 51.3 % (45-73); Platelet Count 212 X10*3/uL (160-400); Red Blood Count 3.86 X10*6/uL (4.20-5.50); Red Cell Distribution Width 13.2 % (11.0-16.0); SCAN SMEAR FLAG 1; White Blood Count 4.3 X10*3/uL (4.8-10.8)
[2021-09-19 07:39] LABS: Glucose, Whole Blood 160 mg/dL (60-115)
[2021-09-19 07:52] LABS: Anion Gap 8 (12-20); Blood Urea Nitrogen 5 mg/dL (9-16); Calcium 8.5 mg/dL (8.4-10.2); Carbon Dioxide 31 mmol/L (22-29); Chloride 106 mmol/L (96-108); Creatinine Clr Calc Pharmacy 101.7; Estimated Glomerular Filt Rate > 60; Glucose Random 172 mg/dL (60-115); Potassium 3.9 mmol/L (3.3-5.1); Sodium 141 mmol/L (135-145)
[2021-09-19] MEDS: Fluticasone Propionate 100 MCG BLST.W.DEV 1 PUFF INHALE ×2 (07:57→20:11)
[2021-09-19] MEDS: Famotidine 20 MG TABLET 40 MG PO (08:05)
[2021-09-19] MEDS: Cholecalciferol (Vitamin D3) 25 MCG TABLET 50 MCG PO (08:05)
[2021-09-19] MEDS: Calcium + Vitamin D 250 MG TABLET 500 MG PO ×2 (08:06→20:45)
[2021-09-19] MEDS: Multivitamin TABLET 1 TAB PO (08:06)
[2021-09-19] MEDS: Insulin Lispro 100 UNIT/ML 3 ML VIAL SUBCUT ×3 (08:08→20:45)
[2021-09-19] MEDS: Loratadine 10 MG TABLET PO (08:11)
[2021-09-19 08:18] LABS: SLIDE REVIEW VERIFIED
[2021-09-19] MEDS: Heparin Sodium,Porcine 5,000 UNIT/ML VIAL 5000 UNIT SUBCUT ×2 (10:10→20:46)
[2021-09-19] MEDS: cefTRIAXone sodium 1 GM in 0.9 % Sodium Chloride 50 ML IV (10:10)
--- NOTE | 2021-09-19 11:29 | P.PNIM_ITS ---
Subjective Subjective Date of Service: 09/19/21 Interval History: seen and examined this morning follow up for pyelo/left kidney abscess no fever or chills, no nausea or vomiting having some pain at site of ORIANA tolerating diet Review of Systems Review of Systems: Yes all other systems are reviewed and are negative Constitutional Constitutional: Denies chills and Denies fever(s) Cardiovascular Cardiovascular: Denies chest pain Respiratory Respiratory: Denies cough Gastrointestinal Gastrointestinal: Denies nausea and Denies vomiting Physical Exam Verdana 4l Vital Signs: Verdana 4d Verdana 4d Vital Signs: Verdana 4d Verdana 4Bd Last Vital Signs Verdana 4d Senior Occupational Therapist New 4d Senior Occupational Therapist New 4d Temp 98.1 F 09/19/21 11:21 Senior Occupational Therapist New 4d Pulse 67 09/19/21 11:21 Senior Occupational Therapist NewNew 4d Resp 18 09/19/21 11:21 BP 118/57 L 09/19/21 11:21 Pulse Ox 97 09/19/21 11:21 BMI result Body Mass Index 39.0 Const: General: cooperative, comfortable, no acute distress, alert and awake Nutritional Appearance: well nourished Orientation/consciousness: patient oriented x3 HENMT: Head: Yes normocephalic and Yes atraumatic Eyes: Sclerae: sclerae normal Pupils: Equal, round and reactive pupils present Resp: Effort & Inspection: normal respiratory effort and no respiratory distress Cardio: Rate: regular rate Rhythm: regular rhythm GI: Other: left posterior ORIANA with scant output Inspection: No distended Palpation (GI): Soft to palpation and nontender Neuro: General: patient oriented x3 Cranial nerves: Yes CN's II-XII intact bilaterally, Yes Equal, round and reactive pupils present and Yes Bilaterally intact EOM present Extrem: Other: Able to move all 4 extremities spontaneously, no lower extremity edema Objective Data Active Medications Acetaminophen (Acetaminophen 325 Mg Tablet) 650 mg PO Q4H PRN PRN Reason: Pain, Moderate (Pain Scale 4-6 Last Admin: 09/18/21 14:20 Dose: 650 mg Documented by: SAE Acetaminophen (Acetaminophen Supp 650 Mg Supp.Rect) 650 mg CA Q6H PRN PRN Reason: Pain, Mild (Pain Scale 1-3) Albuterol Sulfate (Albuterol Sulfate 90 Mcg 8 Gm Inhaler) 2 puff INHALE Q4H PRN PRN Reason: dyspnea Albuterol Sulfate (Albuterol Sulfate (0.083%) 2.5 Mg/3 Ml Vial.Neb) 2.5 mg INHALE Q6H PRN PRN Reason: Shortness of Breath/Wheezing Calcium Carbonate/Cholecalciferol (Calcium + Vitamin D 250 Mg Tablet) 500 mg PO BID [facility] Last Admin: 09/19/21 08:06 Dose: 500 mg Documented by: ROSEMARY Dextrose (Dextrose 50 % 25 Gm/50 Ml Vial) 25 gm IVPUSH Q15M PRN; Protocol PRN Reason: per Hypoglycemia Standing Ord. Docusate Sodium (Docusate Sodium 100 Mg Capsule) 100 mg PO DAILY PRN PRN Reason: Constipation Famotidine (Famotidine 20 Mg Tablet) 40 mg PO DAILY [facility] Last Admin: 09/19/21 08:05 Dose: 40 mg Documented by: ROSEMARY Fluticasone Propionate (Fluticasone Propionate 100 Mcg Blst.W.Dev) 1 puff INHALE RBID [facility] Last Admin: 09/19/21 07:57 Dose: 1 puff Documented by: CHATO Glucose (Glucose Gel 15 Gm Gel..Gram.) 15 gm PO Q15M PRN; Protocol PRN Reason: per Hypoglycemia Standing Ord. Heparin Sodium (Porcine) (Heparin Sodium,Porcine 5,000 Unit/Ml Vial) 5,000 unit SUBCUT Q12H [facility] Last Admin: 09/19/21 10:10 Dose: 5,000 unit Documented by: ROSEMARY Ceftriaxone Sodium 1 gm/ (Sodium Chloride) 50 mls @ 100 mls/hr IV Q24H [facility] Last Admin: 09/19/21 10:10 Dose: 100 mls/hr Documented by: ROSEMARY Insulin Human Lispro (Insulin Lispro 100 Unit/Ml 3 Ml Vial) 0 unit SUBCUT QIDACHS [facility]; Protocol Last Admin: 09/19/21 08:08 Dose: 2 unit Documented by: ROSEMARY Loratadine (Loratadine 10 Mg Tablet) 10 mg PO DAILY [facility] Last Admin: 09/19/21 08:11 Dose: 10 mg Documented by: ROSEMARY Multivitamins/Vitamin C (Multivitamin Tablet) 1 tab PO DAILY [facility] Last Admin: 09/19/21 08:06 Dose: 1 tab Documented by: ROSEMARY Omeprazole (Omeprazole 20 Mg Capsule.Dr) 20 mg PO DAILY@0630 [facility] Last Admin: 09/19/21 06:15 Dose: 20 mg Documented by: NAILA Ondansetron HCl (Ondansetron Hcl 4 Mg/2 Ml Vial) 4 mg IVPUSH Q8H PRN PRN Reason: Nausea and Vomiting Oxycodone HCl (Oxycodone Hcl Immed Release 5 Mg Tablet) 5 mg PO Q6H PRN PRN Reason: Pain, Severe (Pain Scale 7-10) Last Admin: 09/18/21 21:48 Dose: 5 mg Documented by: MADELIN Pharmacy Consult (Consult Rx Perform Med Rec) 1 each MISCELLANE ONCE PRN PRN Reason: Consult order Pharmacy Consult (Consult Rx Vancomycin Dosing) 1 each MISCELLANE DAILY PRN PRN Reason: Consult order Pregabalin (Pregabalin 75 Mg Capsule) 75 mg PO BEDTIME [facility] Last Admin: 09/18/21 20:45 Dose: 75 mg Documented by: MADELIN Sodium Chloride (0.9 % Sodium Chloride Flush 3 Ml Syringe) 3 ml IVFLUSH QSHIFT [facility] Last Admin: 09/19/21 08:04 Dose: Not Given Documented by: ROSEMARY Non-Admin Reason: IV Running Vitamin D (Cholecalciferol (Vitamin D3) 25 Mcg Tablet) 50 mcg PO DAILY [facility] Last Admin: 09/19/21 08:05 Dose: 50 mcg Documented by: ROSEMARY Labs CBC & Chem 7: 09/19/21 06:31 09/19/21 06:31 Labs: Laboratory Results - last 24 hr 09/18/21 09/18/21 09/18/21 11:46 16:01 20:40 MCV MCH MCHC RDW Plt Count MPV Immature Gran % (Auto) Neut % (Auto) Lymph % (Auto) [place] % (Auto) Eos % (Auto) Baso % (Auto) Lymph # (Auto) [place] # (Auto) Eos # (Auto) Baso # (Auto) Abs Immat Gran (auto) Absolute Neuts (auto) Absolute Nucleated RBC Nucleated RBC % (auto) Smear Tech's Comments Anion Gap Estim Creat Clear Calc Estimated GFR POC Glucose 159 H 150 H 171 H Random Glucose Calcium 01/10/1009/19/21 09/19/21 06:31 06:31 07:33 MCV 84.5 MCH 27.7 MCHC 32.8 RDW 13.2 Plt Count 212 MPV 10.6 Immature Gran % (Auto) 1.6 H Neut % (Auto) 51.3 Lymph % (Auto) 32.5 [place] % (Auto) 10.6 Eos % (Auto) 3.3 Baso % (Auto) 0.7 Lymph # (Auto) 1.4 [place] # (Auto) 0.5 Eos # (Auto) 0.1 Baso # (Auto) 0.0 Abs Immat Gran (auto) 0.07 H Absolute Neuts (auto) 2.2 Absolute Nucleated RBC 0.000 Nucleated RBC % (auto) 0.0 Smear Tech's Comments VERIFIED Anion Gap 8 L Estim Creat Clear Calc 101.7 Estimated GFR > 60 POC Glucose 160 H Random Glucose 172 H Calcium 8.5 Microbiology Microbiology Results: Microbiology 09/17/21 11:57 Gram Stain - Final Abscess Intra-abdominal Routine Culture - Preliminary Gram negative bulmaro Anaerobic Culture - Preliminary Culture in progress. 09/16/21 08:36 Blood Culture - Final Blood - Venous Escherichia coli 09/16/21 07:39 Blood Culture - Final Blood - Venous Escherichia coli Assessment and Plan (1) Kidney abscess: Status: Acute (2) Sepsis: Status: Acute (3) Gram-negative bacteremia: Status: Acute Assessment and Plan: This is a 66 [place]an-speaking female with history of diabetes, hypertension, hyperlipidemia, asthma, sleeve gastrectomy who presents to the emergency department with nausea vomiting fever chills found to have sepsis secondary to pyelonephritis with renal abscess Sepsis secondary to pyelonephritis/renal abscess met sepsis criteria with fever, tachycardia and increased respiratory rate LA 1.7 severe features with elevated bilirubin received 30 cc/kg bolus based on ideal body weight pyelonephritis/left renal abscess ua fairly bland, no urine culture s/p IR guided drainage and ORIANA drain placement 09/17 abscess fluid growing gram negative bulmaro seen by ID, recommend to change abx to ceftriaxone urology consult gram negative bulmaro bacteremia 2/2 BCx from 09/16 growing e.coli r/t above pyelo/renal abscess initially treated with IV zosyn, changed to ceftraxone 09/19 hypokalemia improved with replacement elevated LFTs likely secondary to sepsis trending down follow elevated trop no chest pain; ekg non-specific changes trops flat likely secondary to sepsis Diabetes trulicity non-formulary hold metformin SSI, POCs, ADA diet HTN BP soft and in setting of sepsis with hold home meds (chlorthalidone, enalapril, bystolic) monitor BP closely HLD hold statin, zetia gerd on pantoprazole and pepcid asthma no acute exacerbation continue home inhalers peripheral neuropathy continue lyrica dvt ppx - haparin code status - full code attending -?[facility] Quality Stroke Does the patient have a stroke diagnosis?: No VTE Prior VTE?: No VTE Risk Level:: Medical - moderate - high VTE Device Contraindication: N/A - Device Ordered VTE Drug Contraindication: N/A - Med Ordered
[2021-09-19 11:38] LABS: Glucose, Whole Blood 132 mg/dL (60-115)
--- NOTE | 2021-09-19 12:08 | PM.UROCN ---
History of Present Illness Consult details Consult date: 09/19/21 Narrative: Consult for left sided focal pyelonephritis presented to hospital after 48-72 hours with chills Initial temperature 103 degrees Blood cultures have grown E coli Imaging showed question of abscess on left kidney with focal pyelonephritis Drain was placed which at this point has minimal output Currently responding well to antibiotics WBC never anna above 10 Does have elevated sugars on point of care testing Last HbA1c February 2021 7.3 Recommend following infectious disease guideline with 14 days antibiotic therapy Will need repeat imaging on kidneys in 3 months to confirm resolution Review of Systems Constitutional: Constitutional: Reports as per HPI and Reports no additional constitutional complaints Cardiovascular: Cardiovascular: Reports as per HPI and Reports no additional cardiovascular complaints Respiratory: Respiratory: Reports as per HPI and Reports no additional respiratory complaints Gastrointestinal: Gastrointestinal: Reports as per HPI and Reports no additional gastrointestinal complaints Genitourinary: Genitourinary: Reports as per HPI Musculoskeletal: Musculoskeletal: Reports no additional musculoskeletal complaints and Reports as per HPI Neurologic: Reports system reviewed and no additional complaints, except as documented and Reports as per HPI FOR[facility]LY [facility], [facility] Past Medical History Medical History Diabetes type 2, controlled Diabetic polyneuropathy associated with type 2 diabetes mellitus Dyslipidemia History of diverticulosis Hx of diverticulitis of colon Hypertension Vitamin D deficiency Functional capacity: independent ambulation Family History Family History Father Hypertension Mother No problems noted. Son No problems noted. Son No problems noted. Daughter Hypertension Asthma Obesity Muscle spasm Acute depression Sister No problems noted. Sister No problems noted. Brother No problems noted. Brother No problems noted. Brother No problems noted. Brother No problems noted. Brother No problems noted. Surgical History Surgical History History of carpal tunnel release History of sleeve gastrectomy Hx of cholecystectomy Hx of colonoscopy Hx of excision of mass Hx of foot surgery Hx of tubal ligation Social History Social History Household Members: Family Housing: Apartment Do you presently have visiting nurse or other home services: Yes Alcohol intake: never Patient Tobacco Use Status: Never used Tobacco Use of substances other than those prescribed or required for medical reasons: No Currently Displaying Signs/Symptoms of Drug Intoxication Withdrawal: No Have you been hit, kicked, punched, or otherwise hurt by someone within the past year? If so, by whom?: No Do you feel safe in your current relationship?: No Current Relationship Is there a partner from a previous relationship who is making you feel unsafe now?: No Are you made to feel afraid or neglected: No Advance Directives: Yes Advance Directives Information Provided: Yes Advance Directives on File: No Advance Directives Date on File: 09/17/21 Do you have thoughts of harming others: None Do you have a plan to hurt others: No Plan Recently lost weight without trying: No Eating poorly because of decreased appetite: No Nutrition Risks: No Nutritional Risk Patient : No : No Poor oral hygiene: No service: No Current occupational status: unemployed Meds Allergies Allergy/AdvReac Type Severity Reaction Status Date / Time pollen Allergy Unknown shortness Uncoded 09/17/21 16:13 of breath Pt states no food/medication Allergy Unknown Anaphylaxis Uncoded 09/17/21 16:13 a Active Medications: Current Medications Acetaminophen (Acetaminophen 325 Mg Tablet) 650 mg PO Q4H PRN PRN Reason: Pain, Moderate (Pain Scale 4-6 Last Admin: 09/18/21 14:20 Dose: 650 mg Documented by: Acetaminophen (Acetaminophen Supp 650 Mg Supp.Rect) 650 mg [place] Q6H PRN PRN Reason: Pain, Mild (Pain Scale 1-3) Albuterol Sulfate (Albuterol Sulfate 90 Mcg 8 Gm Inhaler) 2 puff INHALE Q4H PRN PRN Reason: dyspnea Albuterol Sulfate (Albuterol Sulfate (0.083%) 2.5 Mg/3 Ml Vial.Neb) 2.5 mg INHALE Q6H PRN PRN Reason: Shortness of Breath/Wheezing Calcium Carbonate/Cholecalciferol (Calcium + Vitamin D 250 Mg Tablet) 500 mg PO BID [facility] Last Admin: 09/19/21 08:06 Dose: 500 mg Documented by: Dextrose (Dextrose 50 % 25 Gm/50 Ml Vial) 25 gm IVPUSH Q15M PRN; Protocol PRN Reason: per Hypoglycemia Standing Ord. Docusate Sodium (Docusate Sodium 100 Mg Capsule) 100 mg PO DAILY PRN PRN Reason: Constipation Famotidine (Famotidine 20 Mg Tablet) 40 mg PO DAILY [facility] Last Admin: 09/19/21 08:05 Dose: 40 mg Documented by: Fluticasone Propionate (Fluticasone Propionate 100 Mcg Blst.W.Dev) 1 puff INHALE RBID [facility] Last Admin: 09/19/21 07:57 Dose: 1 puff Documented by: Glucose (Glucose Gel 15 Gm Gel..Gram.) 15 gm PO Q15M PRN; Protocol PRN Reason: per Hypoglycemia Standing Ord. Heparin Sodium (Porcine) (Heparin Sodium,Porcine 5,000 Unit/Ml Vial) 5,000 unit SUBCUT Q12H [facility] Last Admin: 09/19/21 10:10 Dose: 5,000 unit Documented by: Ceftriaxone Sodium 1 gm/ (Sodium Chloride) 50 mls @ 100 mls/hr IV Q24H [facility] Last Infusion: 09/19/21 11:37 Dose: Infused Documented by: Insulin Human Lispro (Insulin Lispro 100 Unit/Ml 3 Ml Vial) 0 unit SUBCUT QIDACHS [facility]; Protocol Last Admin: 09/19/21 12:05 Dose: Not Given Documented by: Loratadine (Loratadine 10 Mg Tablet) 10 mg PO DAILY [facility] Last Admin: 09/19/21 08:11 Dose: 10 mg Documented by: Multivitamins/Vitamin C (Multivitamin Tablet) 1 tab PO DAILY [facility] Last Admin: 09/19/21 08:06 Dose: 1 tab Documented by: Omeprazole (Omeprazole 20 Mg Capsule.) 20 mg PO DAILY@0630 [facility] Last Admin: 09/19/21 06:15 Dose: 20 mg Documented by: Ondansetron HCl (Ondansetron Hcl 4 Mg/2 Ml Vial) 4 mg IVPUSH Q8H PRN PRN Reason: Nausea and Vomiting Oxycodone HCl (Oxycodone Hcl Immed Release 5 Mg Tablet) 5 mg PO Q6H PRN PRN Reason: Pain, Severe (Pain Scale 7-10) Last Admin: 09/18/21 21:48 Dose: 5 mg Documented by: Pharmacy Consult (Consult Rx Perform Med Rec) 1 each MISCELLANE ONCE PRN PRN Reason: Consult order Pharmacy Consult (Consult Rx Vancomycin Dosing) 1 each MISCELLANE DAILY PRN PRN Reason: Consult order Pregabalin (Pregabalin 75 Mg Capsule) 75 mg PO BEDTIME [facility] Last Admin: 09/18/21 20:45 Dose: 75 mg Documented by: Sodium Chloride (0.9 % Sodium Chloride Flush 3 Ml Syringe) 3 ml IVFLUSH QSHIFT [facility] Last Admin: 09/19/21 08:04 Dose: Not Given Documented by: Vitamin D (Cholecalciferol (Vitamin D3) 25 Mcg Tablet) 50 mcg PO DAILY [facility] Last Admin: 09/19/21 08:05 Dose: 50 mcg Documented by: Home Medications Medication Instructions Recorded Confirmed Last Taken Type chlorthalidone 25 mg tablet 25 mg PO DAILY 08/01/20 09/16/21 Unknown History enalapril maleate 20 mg tablet 20 mg PO DAILY 08/01/20 09/16/21 Unknown History loratadine 10 mg tablet 10 mg PO DAILY 08/01/20 09/16/21 Unknown History nebivolol 5 mg tablet 5 mg PO DAILY 08/01/20 09/16/21 Unknown History pregabalin 75 mg capsule 75 mg PO BEDTIME 08/01/20 09/16/21 Unknown History albuterol sulfate 90 mcg/actuation 2 puff PO Q4-6H PRN 11/21/20 09/16/21 Unknown History aerosol inhaler blood sugar diagnostic #10 ea 11/21/20 09/16/21 Unknown History fluticasone propionate 110 1 puff INHALATION BID 11/21/20 09/16/21 Unknown History mcg/actuation HFA aerosol inhaler dulaglutide 1.5 mg/0.5 mL 1.5 mg SUBCUT MO@0900 09/16/21 09/16/21 Unknown History subcutaneous pen injector oxycodone-acetaminophen 5 mg-325 1 tab PO Q8H PRN 09/16/21 09/16/21 Unknown History mg tablet pantoprazole 40 mg tablet,delayed 1 tab PO QAM 09/16/21 09/16/21 Unknown History release rosuvastatin 40 mg tablet 40 mg PO BEDTIME 09/16/21 09/16/21 Unknown History Physical Exam Vital Signs: Vital Signs: Last Vital Signs Temp 98.1 F 09/19/21 11:21 Pulse 67 09/19/21 11:21 Resp 18 09/19/21 11:21 BP 118/57 L 09/19/21 11:21 Pulse Ox 97 09/19/21 11:21 BMI result Body Mass Index 39.0 Const: General: cooperative, healthy appearing, comfortable and no acute distress Orientation/consciousness: patient oriented x3 HENMT: Face and sinus: Yes normal facial exam Mouth: moist mucous membranes Neck: Neck: Yes normal visual inspection, Yes full ROM and Yes trachea midline Chest: Chest palpation & inspection: normal inspection of the chest Resp: Effort & Inspection: normal respiratory effort, able to speak in complete sentences and no respiratory distress GI: Inspection: Yes normal to inspection Back/Spine/Pelvis: Cervical Spine: normal cervical lordosis Thoracic/Lumbar Spine: thoracic and lumbar spine normal to inspection Skin: General skin exam: no rashes or lesions noted Neuro: General: patient oriented x3, tone normal and moves all extremities Extrem: General: Yes normal to inspection and Yes capillary refill normal Results Labs Result diagrams: 09/19/21 06:31 09/19/21 06:31 Labs: Abnormal lab results 09/18/21 09/18/21 09/19/21 Range/Units 16:01 20:40 06:31 WBC 4.3 L (4.8-10.8) X10*3/uL RBC 3.86 L (4.20-5.50) X10*6/uL Hgb 10.7 L (12.0-16.0) g/dl Hct 32.6 L (37.0-47.0) % Immature Gran % (Auto) 1.6 H (0.0-0.4) % Abs Immat Gran (auto) 0.07 H (0.00-0.03) X10*3/uL Carbon Dioxide (22-29) mmol/L Anion Gap (12-20) BUN (9-16) mg/dL POC Glucose 150 H 171 H (60-115) mg/dL Random Glucose (60-115) mg/dL 09/19/21 09/19/21 09/19/21 Range/Units 06:31 07:33 11:23 WBC (4.8-10.8) X10*3/uL RBC (4.20-5.50) X10*6/uL Hgb (12.0-16.0) g/dl Hct (37.0-47.0) % Immature Gran % (Auto) (0.0-0.4) % Abs Immat Gran (auto) (0.00-0.03) X10*3/uL Carbon Dioxide 31 H (22-29) mmol/L Anion Gap 8 L (12-20) BUN 5 L (9-16) mg/dL POC Glucose 160 H 132 H (60-115) mg/dL Random Glucose 172 H (60-115) mg/dL Short CBC 09/19/21 Range/Units 06:31 WBC 4.3 L (4.8-10.8) X10*3/uL Hgb 10.7 L (12.0-16.0) g/dl Hct 32.6 L (37.0-47.0) % Plt Count 212 (160-400) X10*3/uL BMP 09/19/21 06:31 Sodium 141 Potassium 3.9 Chloride 106 Carbon Dioxide 31 H BUN 5 L Creatinine 0.63 Calcium 8.5 Urine 09/16/21 Range/Units 08:07 Urine Color YELLOW Urine Appearance CLEAR Urine pH 6.0 (5.0-8.0) Ur Specific [place] 1.015 (1.005-1.025) Urine Protein 1+ H (NEG-TRACE) MG/DL Urine Glucose (UA) >=1000 H (NEG) MG/DL All other labs normal. Assessment and Plan (1) Focal pyelonephritis: Status: Acute (2) Sepsis: Status: Acute (3) Gram-negative bacteremia: Status: Acute management per Infectious Disease recommendations Will need outpatient imaging Procedures Date of Service Date of Service: 09/19/21
[2021-09-19 13:04] LABS: Estimated Average Glucose 232 mg/dL; Hemoglobin A1c % 9.7 %
[2021-09-19 16:15] LABS: Glucose, Whole Blood 168 mg/dL (60-115)
[2021-09-19] MEDS: 0.9 % Sodium Chloride Flush 3 ML SYRINGE IVFLUSH ×2 (18:16→20:50)
[2021-09-19 19:38] LABS: Glucose, Whole Blood 214 mg/dL (60-115)
[2021-09-19] MEDS: oxyCODONE HCl Immed Release 5 MG TABLET PO (20:45)
[2021-09-19] MEDS: Pregabalin 75 MG CAPSULE PO (20:45)
[2021-09-20] VITALS (8 sets, daily range): BP systolic 116–136; BP diastolic 63–70; PULSE 56–90; RESP 8–20; TEMP 36.1–37.1; O2SAT 96–100
[2021-09-20] MEDS: Omeprazole 20 MG CAPSULE.DR PO (05:33)
[2021-09-20 06:46] LABS: Hematocrit 34.3 % (37.0-47.0); Hemoglobin 11.1 g/dl (12.0-16.0); Mean Corpuscular HGB Conc 32.4 g/dl (31.0-35.0); Mean Corpuscular Hemoglobin 27.6 pg (27.0-33.0); Mean Corpuscular Volume 85.3 fL (80.0-98.0); Mean Platelet Volume 9.8 fL (9.4-12.3); Platelet Count 242 X10*3/uL (160-400); Red Blood Count 4.02 X10*6/uL (4.20-5.50); Red Cell Distribution Width 13.2 % (11.0-16.0); White Blood Count 3.9 X10*3/uL (4.8-10.8)
[2021-09-20 06:58] LABS: Alanine Aminotransferase 43 U/L (0-31); Albumin Level 2.9 g/dL (3.5-5.0); Alkaline Phosphatase 156 U/L (39-117); Anion Gap 11 (12-20); Aspartate Amino Transferase 39 U/L (5-31); Bilirubin Direct 0.3 mg/dL (0.0-0.5); Bilirubin Total 0.6 mg/dL (0.0-1.0); Blood Urea Nitrogen 4 mg/dL (9-16); Calcium 8.6 mg/dL (8.4-10.2); Carbon Dioxide 31 mmol/L (22-29); Chloride 107 mmol/L (96-108); Creatinine Clr Calc Pharmacy 105.1; Estimated Glomerular Filt Rate > 60; Glucose Random 128 mg/dL (60-115); Potassium 3.9 mmol/L (3.3-5.1); Sodium 145 mmol/L (135-145); Total Protein 5.1 g/dL (6.5-8.0)
[2021-09-20 07:43] LABS: Atypical Lymph Absolute Manual 0.2 x10*3/uL; Atypical Lymphs Percent Manual 4 % (0-6); Band Neutrophils Percent 7 % (3-5); Basophils Percent Manual 1 % (0-2); Eosinophils Percent Manual 1 % (0-4); Lymphocytes Absolute Manual 1.3 X10*3/uL (1.2-4.9); Lymphocytes Percent Manual 34 % (20-40); Metamyelocytes Absolute 0.1 X10*3/uL; Metamyelocytes Percent 2 %; Monocytes Percent Manual 1 % (2-11); Neutrophils Absolute Manual 2.2 X10*3/uL (2.0-8.3); Neutrophils Percent Manual 50 % (45-73)
[2021-09-20 07:44] LABS: Glucose, Whole Blood 100 mg/dL (60-115)
[2021-09-20 07:44] LABS: Acanthocytes 1+ (0-2) /OIF; Platelet Estimate NORMAL (NORMAL); Platelet Morphology Comment NORMAL; RBC Morphology NOTED
[2021-09-20] MEDS: Fluticasone Propionate 100 MCG BLST.W.DEV 1 PUFF INHALE ×2 (08:27→20:39)
[2021-09-20] MEDS: Calcium + Vitamin D 250 MG TABLET 500 MG PO ×2 (09:27→21:19)
[2021-09-20] MEDS: Cholecalciferol (Vitamin D3) 25 MCG TABLET 50 MCG PO (09:27)
[2021-09-20] MEDS: Loratadine 10 MG TABLET PO (09:28)
[2021-09-20] MEDS: Famotidine 20 MG TABLET 40 MG PO (09:28)
[2021-09-20] MEDS: Multivitamin TABLET 1 TAB PO (09:28)
[2021-09-20] MEDS: cefTRIAXone sodium 1 GM in 0.9 % Sodium Chloride 50 ML IV (09:28)
[2021-09-20] MEDS: Heparin Sodium,Porcine 5,000 UNIT/ML VIAL 5000 UNIT SUBCUT ×2 (09:28→21:20)
[2021-09-20 11:31] LABS: Glucose, Whole Blood 175 mg/dL (60-115)
[2021-09-20] MEDS: Insulin Lispro 100 UNIT/ML 3 ML VIAL SUBCUT ×2 (12:12→21:19)
--- NOTE | 2021-09-20 13:35 | MHC.CM.PN ---
Per Rogelio, Patient will need 2GM IV Ceftriaxone Daily X 14 days at time of dc. CM will follow.
--- NOTE | 2021-09-20 14:34 | HO.PM.IMPN ---
Subjective Subjective Date of Service: 09/20/21 Interval History: seen and examined this morning follow up for focal pyelonephritis/e.coli bacteremia feeling well, no abdominal pain, nausea or vomiting Review of Systems Review of Systems: Yes all other systems are reviewed and are negative Constitutional Constitutional: Denies chills and Denies fever(s) Cardiovascular Cardiovascular: Denies chest pain Respiratory Respiratory: Denies cough Gastrointestinal Gastrointestinal: Denies abdominal pain Physical Exam Vital Signs: Vital Signs: Last Vital Signs Temp 98 F 09/20/21 11:25 Pulse 60 09/20/21 11:25 Resp 18 09/20/21 11:25 BP 136/63 09/20/21 11:25 Pulse Ox 98 09/20/21 11:25 BMI result Body Mass Index 39.0 Const: General: cooperative, comfortable, no acute distress, alert and awake Nutritional Appearance: well nourished Orientation/consciousness: patient oriented x3 HENMT: Head: Yes normocephalic and Yes atraumatic Eyes: Sclerae: sclerae normal Pupils: Equal, round and reactive pupils present Resp: Effort & Inspection: normal respiratory effort and no respiratory distress Cardio: Rate: regular rate Rhythm: regular rhythm GI: Other: left posterior ORIANA with scant output Inspection: No distended Palpation (GI): Soft to palpation and nontender Neuro: General: patient oriented x3 Cranial nerves: Yes CN's II-XII intact bilaterally, Yes Equal, round and reactive pupils present and Yes Bilaterally intact EOM present Extrem: Other: Able to move all 4 extremities spontaneously, no lower extremity edema Objective Data Active Medications Acetaminophen (Acetaminophen 325 Mg Tablet) 650 mg PO Q4H PRN PRN Reason: Pain, Moderate (Pain Scale 4-6 Last Admin: 09/18/21 14:20 Dose: 650 mg Documented by: SAE Acetaminophen (Acetaminophen Supp 650 Mg Supp.Rect) 650 mg NE Q6H PRN PRN Reason: Pain, Mild (Pain Scale 1-3) Albuterol Sulfate (Albuterol Sulfate 90 Mcg 8 Gm Inhaler) 2 puff INHALE Q4H PRN PRN Reason: dyspnea Albuterol Sulfate (Albuterol Sulfate (0.083%) 2.5 Mg/3 Ml Vial.Neb) 2.5 mg INHALE Q6H PRN PRN Reason: Shortness of Breath/Wheezing Calcium Carbonate/Cholecalciferol (Calcium + Vitamin D 250 Mg Tablet) 500 mg PO BID [facility] Last Admin: 09/20/21 09:27 Dose: 500 mg Documented by: MINE Dextrose (Dextrose 50 % 25 Gm/50 Ml Vial) 25 gm IVPUSH Q15M PRN; Protocol PRN Reason: per Hypoglycemia Standing Ord. Docusate Sodium (Docusate Sodium 100 Mg Capsule) 100 mg PO DAILY PRN PRN Reason: Constipation Famotidine (Famotidine 20 Mg Tablet) 40 mg PO DAILY [facility] Last Admin: 09/20/21 09:28 Dose: 40 mg Documented by: MINE Fluticasone Propionate (Fluticasone Propionate 100 Mcg Blst.W.Dev) 1 puff INHALE RBID [facility] Last Admin: 09/20/21 08:27 Dose: 1 puff Documented by: GURU Glucose (Glucose Gel 15 Gm Gel..Gram.) 15 gm PO Q15M PRN; Protocol PRN Reason: per Hypoglycemia Standing Ord. Heparin Sodium (Porcine) (Heparin Sodium,Porcine 5,000 Unit/Ml Vial) 5,000 unit SUBCUT Q12H [facility] Last Admin: 09/20/21 09:28 Dose: 5,000 unit Documented by: MINE Ceftriaxone Sodium 1 gm/ (Sodium Chloride) 50 mls @ 100 mls/hr IV Q24H [facility] Last Infusion: 09/20/21 10:43 Dose: 0 mls/hr Documented by: MINE Insulin Human Lispro (Insulin Lispro 100 Unit/Ml 3 Ml Vial) 0 unit SUBCUT QIDACHS [facility]; Protocol Last Admin: 09/20/21 12:12 Dose: 2 unit Documented by: MINE Loratadine (Loratadine 10 Mg Tablet) 10 mg PO DAILY [facility] Last Admin: 09/20/21 09:28 Dose: 10 mg Documented by: MINE Multivitamins/Vitamin C (Multivitamin Tablet) 1 tab PO DAILY [facility] Last Admin: 09/20/21 09:28 Dose: 1 tab Documented by: MINE Omeprazole (Omeprazole 20 Mg Capsule.) 20 mg PO DAILY@0630 [facility] Last Admin: 09/20/21 05:33 Dose: 20 mg Documented by: MADELIN Ondansetron HCl (Ondansetron Hcl 4 Mg/2 Ml Vial) 4 mg IVPUSH Q8H PRN PRN Reason: Nausea and Vomiting Oxycodone HCl (Oxycodone Hcl Immed Release 5 Mg Tablet) 5 mg PO Q6H PRN PRN Reason: Pain, Severe (Pain Scale 7-10) Last Admin: 09/19/21 20:45 Dose: 5 mg Documented by: MADELIN Pharmacy Consult (Consult Rx Perform Med Rec) 1 each MISCELLANE ONCE PRN PRN Reason: Consult order Pharmacy Consult (Consult Rx Vancomycin Dosing) 1 each MISCELLANE DAILY PRN PRN Reason: Consult order Pregabalin (Pregabalin 75 Mg Capsule) 75 mg PO BEDTIME [facility] Last Admin: 09/19/21 20:45 Dose: 75 mg Documented by: MADELIN Sodium Chloride (0.9 % Sodium Chloride Flush 3 Ml Syringe) 3 ml IVFLUSH QSHIFT [facility] Last Admin: 09/20/21 09:29 Dose: Not Given Documented by: MINE Non-Admin Reason: IV Running Vitamin D (Cholecalciferol (Vitamin D3) 25 Mcg Tablet) 50 mcg PO DAILY [facility] Last Admin: 09/20/21 09:27 Dose: 50 mcg Documented by: MINE Labs CBC & Chem 7: 09/20/21 06:25 09/20/21 06:25 Labs: Laboratory Results - last 24 hr 09/19/21 09/19/21 09/20/21 16:08 19:33 06:25 MCV MCH MCHC RDW Plt Count MPV Immature Gran % (Auto) Neut % (Auto) Lymph % (Auto) [place] % (Auto) Eos % (Auto) Baso % (Auto) Lymph # (Auto) [place] # (Auto) Eos # (Auto) Baso # (Auto) Abs Immat Gran (auto) Absolute Neuts (auto) Absolute Nucleated RBC Nucleated RBC % (auto) Neutrophils % (Manual) Band Neutrophils % Lymphocytes % (Manual) Atypical Lymphs % (Man) Monocytes % (Manual) Eosinophils % (Manual) Basophils % (Manual) Metamyelocytes % Abs Neuts (Manual) Lymphocytes # (Manual) Atyp Lymphs # (Manual) Metamyelocytes # Platelet Estimate Plt Morphology Comment RBC Morphology Acanthocytes (Spur) Anion Gap 11 L Estim Creat Clear Calc 105.1 Estimated GFR > 60 POC Glucose 168 H 214 H Random Glucose 128 H Calcium 8.6 Total Bilirubin 0.6 Direct Bilirubin 0.3 AST 39 H ALT 43 H Alkaline Phosphatase 156 H Total Protein 5.1 L Albumin 2.9 L 09/20/21 09/20/21 09/20/21 06:25 07:20 11:23 MCV 85.3 MCH 27.6 MCHC 32.4 RDW 13.2 Plt Count 242 MPV 9.8 Immature Gran % (Auto) Cancelled Neut % (Auto) Cancelled Lymph % (Auto) Cancelled [place] % (Auto) Cancelled Eos % (Auto) Cancelled Baso % (Auto) Cancelled Lymph # (Auto) Cancelled [place] # (Auto) Cancelled Eos # (Auto) Cancelled Baso # (Auto) Cancelled Abs Immat Gran (auto) Cancelled Absolute Neuts (auto) Cancelled Absolute Nucleated RBC 0.000 Nucleated RBC % (auto) 0.0 Neutrophils % (Manual) 50 Band Neutrophils % 7 H Lymphocytes % (Manual) 34 Atypical Lymphs % (Man) 4 Monocytes % (Manual) 1 L Eosinophils % (Manual) 1 Basophils % (Manual) 1 Metamyelocytes % 2 Abs Neuts (Manual) 2.2 Lymphocytes # (Manual) 1.3 Atyp Lymphs # (Manual) 0.2 Metamyelocytes # 0.1 Platelet Estimate NORMAL Plt Morphology Comment NORMAL RBC Morphology NOTED Acanthocytes (Spur) 1+ (0-2) Anion Gap Estim Creat Clear Calc Estimated GFR POC Glucose 100 175 H Random Glucose Calcium Total Bilirubin Direct Bilirubin AST ALT Alkaline Phosphatase Total Protein Albumin Microbiology Microbiology Results: Microbiology 09/17/21 11:57 Gram Stain - Final Abscess Intra-abdominal Routine Culture - Preliminary Escherichia coli Anaerobic Culture - Preliminary Culture in progress. Assessment and Plan (1) Focal pyelonephritis: Status: Acute (2) Sepsis: Status: Acute (3) Gram-negative bacteremia: Status: Acute Assessment and Plan: This is a 66 Greek-speaking female with history of diabetes, hypertension, hyperlipidemia, asthma, sleeve gastrectomy who presents to the emergency department with nausea vomiting fever chills found to have sepsis secondary to pyelonephritis with renal abscess Sepsis secondary to pyelonephritis/renal abscess met sepsis criteria with fever, tachycardia and increased respiratory rate LA 1.7. severe features with elevated bilirubin received 30 cc/kg bolus based on ideal body weight pyelonephritis/left renal abscess ua fairly bland, no urine culture s/p IR guided drainage and ORIANA drain placement 09/17 abscess fluid growing e.coli seen by ID, recommend to change abx to IV ceftriaxone, will need IV ceftriaxone 2gm q24 for 14 days upon discharge seen by urology, recommend repeat imaging in 3 months to ensure resolution midline placement ordered for Tuesday ORIANA drain removal by IR ordered for Tuesday gram negative bulmaro bacteremia / BCx from 09/16 growing e.coli r/t above pyelo/renal abscess initially treated with IV zosyn, changed to ceftriaxone 09/19 hypokalemia improved with replacement elevated LFTs likely secondary to sepsis trending down follow elevated trop no chest pain; ekg non-specific changes trops flat likely secondary to sepsis Diabetes trulicity non-formulary hold metformin SSI, POCs, ADA diet HTN BP soft and in setting of sepsis with hold home meds (chlorthalidone, enalapril, bystolic) monitor BP closely HLD hold statin, zetia gerd on pantoprazole and pepcid asthma no acute exacerbation continue home inhalers peripheral neuropathy continue lyrica dvt ppx - haparin code status - full code attending -?Dr. Johnson Quality Stroke Does the patient have a stroke diagnosis?: No VTE Prior VTE?: No VTE Risk Level:: Medical - moderate - high VTE Device Contraindication: N/A - Device Ordered VTE Drug Contraindication: N/A - Med Ordered
--- NOTE | 2021-09-20 15:36 | PM.DS ---
DS: Providers Provider Date of Service: 09/22/21 <Mavis Lyon NP - Last Filed: 09/22/21 16:16> Date of admission: 09/17/21 14:11 <JOSE ELIAS Chau - Last Filed: 09/20/21 15:42> Primary care physician: Audrey Calvo MD <JOSE ELIAS Chau - Last Filed: 09/20/21 15:42> Consults: 09/16/21 17:39 Consult to General Surgery Routine Consulting Provider: Darrell Cano Reason for consultation: ABD pain, SBO on CT, possible kidney infection, patient hold in ED Has provider been notified: Yes 09/17/21 15:11 Consult to Infectious Diseases Routine Consulting Provider: Samira Kuhn Reason for consultation: sepsis/bacteremia/pelo/renal abscess Has provider been notified: No 09/19/21 07:16 Consult to Urology Routine Consulting Provider: Samira Kuhn Reason for consultation: sepsis/pyelo with kidney abscess Has provider been notified: No <JOSE ELIAS Chau - Last Filed: 09/20/21 15:42> Attending physician on discharge: Jorge Johnson <Mavis Lyon NP - Last Filed: 09/22/21 16:16> Discharging clinician: Mavis Lyon <Mavis Lyon NP - Last Filed: 09/22/21 16:16> DS: Diagnosis Discharge Diagnosis (1) Focal pyelonephritis: Status: Acute <JOSE ELIAS Chau - Last Filed: 09/20/21 15:42> (2) Sepsis: Status: Acute <JOSE ELIAS Chau - Last Filed: 09/20/21 15:42> (3) Gram-negative bacteremia: Status: Acute <JOSE ELIAS Chau - Last Filed: 09/20/21 15:42> DS: Summary Hospital Course Hospital Course: From h&P on day of admission This is a 66 year old female who presented to the emergency department with multiple complaints.? Her history was obtained with the assistance of a enrollment counselor.? September 11 she began having bilateral lower back pain, nausea, vomiting, fever,? and shaking chills. She hoped her symptoms would improve but her daughter urged her to come to the emergency department.? On arrival she was noted to a fever of 103, was tachycardic and had increased respiratory rate meeting sepsis criteria.? Urinalysis showed bacteria but otherwise was relatively unremarkable.? Chest x-ray was also unremarkable. The initial CT scan of the abdomen showed concern over possible partial SBO, and she was seen by the surgical service who did that this was related to her previous bariatric surgery. Repeat CT scan of the abdomen with contrast revealed concern over pyelonephritis and possible associated abscess.? She denies any urinary frequency or dysuria. She has been having bowel movements She underwent IR guided drainage of the abscess with drainage of purulent material and placement of ORIANA drain. Her blood cultures have also returned positive for gram negative rods. She was treated with IV Zosyn and ceftriaxone and will be admitted to the medical service for further management. Sepsis secondary to pyelonephritis/renal abscess. Initially met sepsis criteria with fever, tachycardia and increased respiratory rate. her lactic acid was normal at LA 1.7 but she has severe features of sepsis due to elevated bilirubin. She received 30 cc/kg bolus based on ideal body weight. pyelonephritis/left renal abscess. Urinalysis was fairly bland and no urine culture was reflexed. She underwent IR guided drainage and ORIANA drain placement 09/17. She was initially treated with IV zosyn. Both the abscess fluid and blood cultures grew e.coli. She was seen by ID who recommend to change antibiotics to IV ceftriaxone. She will need IV ceftriaxone 2gm q24 for 14 days upon discharge. She was seen by urology who recommends repeat imaging in 3 months to ensure resolution of infection. Her blood pressure medications were initially held due to sepsis and soft blood pressure. Her blood pressure is improving and home medications can be continued at discharge. <JOSE ELIAS Chau - Last Filed: 09/20/21 15:42> Time Spent with Patient Time attestation: Total time spent providing and/or coordinating discharge services: <JOSE ELIAS Chau - Last Filed: 09/20/21 15:42> Discharge coordination time: Greater than 30 minutes <JOSE ELIAS Chau - Last Filed: 09/20/21 15:42> Quality: Stroke Does the patient have a stroke diagnosis?: No <JOSE ELIAS Chau - Last Filed: 09/20/21 15:42> Physical Exam Vital Signs: Vital Signs: Last Vital Signs Temp 97.0 F 09/20/21 15:00 Pulse 70 09/20/21 15:00 Resp 20 09/20/21 15:00 BP 136/70 09/20/21 15:00 Pulse Ox 99 09/20/21 15:00 BMI result Body Mass Index 39.0 <JOSE ELIAS Chau - Last Filed: 09/20/21 15:42> DS: Data Data Completed and Pending Labs on day of discharge: Laboratory Results - last 24 hr 09/19/21 09/19/21 09/20/21 16:08 19:33 06:25 WBC RBC Hgb Hct MCV MCH MCHC RDW Plt Count MPV Immature Gran % (Auto) Neut % (Auto) Lymph % (Auto) [place] % (Auto) Eos % (Auto) Baso % (Auto) Lymph # (Auto) [place] # (Auto) Eos # (Auto) Baso # (Auto) Abs Immat Gran (auto) Absolute Neuts (auto) Absolute Nucleated RBC Nucleated RBC % (auto) Neutrophils % (Manual) Band Neutrophils % Lymphocytes % (Manual) Atypical Lymphs % (Man) Monocytes % (Manual) Eosinophils % (Manual) Basophils % (Manual) Metamyelocytes % Abs Neuts (Manual) Lymphocytes # (Manual) Atyp Lymphs # (Manual) Metamyelocytes # Platelet Estimate Plt Morphology Comment RBC Morphology Acanthocytes (Spur) Sodium 145 Potassium 3.9 Chloride 107 Carbon Dioxide 31 H Anion Gap 11 L BUN 4 L Creatinine 0.61 Estim Creat Clear Calc 105.1 Estimated GFR > 60 POC Glucose 168 H 214 H Random Glucose 128 H Calcium 8.6 Total Bilirubin 0.6 Direct Bilirubin 0.3 AST 39 H ALT 43 H Alkaline Phosphatase 156 H Total Protein 5.1 L Albumin 2.9 L 09/20/21 09/20/21 09/20/21 06:25 07:20 11:23 WBC 3.9 L RBC 4.02 L Hgb 11.1 L Hct 34.3 L MCV 85.3 MCH 27.6 MCHC 32.4 RDW 13.2 Plt Count 242 MPV 9.8 Immature Gran % (Auto) Cancelled Neut % (Auto) Cancelled Lymph % (Auto) Cancelled [place] % (Auto) Cancelled Eos % (Auto) Cancelled Baso % (Auto) Cancelled Lymph # (Auto) Cancelled [place] # (Auto) Cancelled Eos # (Auto) Cancelled Baso # (Auto) Cancelled Abs Immat Gran (auto) Cancelled Absolute Neuts (auto) Cancelled Absolute Nucleated RBC 0.000 Nucleated RBC % (auto) 0.0 Neutrophils % (Manual) 50 Band Neutrophils % 7 H Lymphocytes % (Manual) 34 Atypical Lymphs % (Man) 4 Monocytes % (Manual) 1 L Eosinophils % (Manual) 1 Basophils % (Manual) 1 Metamyelocytes % 2 Abs Neuts (Manual) 2.2 Lymphocytes # (Manual) 1.3 Atyp Lymphs # (Manual) 0.2 Metamyelocytes # 0.1 Platelet Estimate NORMAL Plt Morphology Comment NORMAL RBC Morphology NOTED Acanthocytes (Spur) 1+ (0-2) Sodium Potassium Chloride Carbon Dioxide Anion Gap BUN Creatinine Estim Creat Clear Calc Estimated GFR POC Glucose 100 175 H Random Glucose Calcium Total Bilirubin Direct Bilirubin AST ALT Alkaline Phosphatase Total Protein Albumin Preliminary micro results at discharge 09/17/21 11:57 Routine Culture - Preliminary Abscess Intra-abdominal Escherichia coli Anaerobic Culture - Preliminary Culture in progress. <JOSE ELIAS Chau - Last Filed: 09/20/21 15:42> Discharge Plan Discharge Anticipated Discharge Date/Time: 09/22/21 12:12 <JOSE ELIAS Chau - Last Filed: 09/20/21 15:42> Patient Disposition: Home Health Service <JOSE ELIAS Chau - Last Filed: 09/20/21 15:42> Discharge Diagnosis: Sepsis Focal Pyelonephritis/Left kidney abscess gram negative bacteremia <JOSE ELIAS Chau - Last Filed: 09/20/21 15:42> Sepsis Focal Pyelonephritis/Left kidney abscess gram negative bacteremia <Mavis Lyon NP - Last Filed: 09/22/21 16:16> Referrals: Audrey Calvo MD [Primary Care Provider] - 1 Week <JOSE ELIAS Chau - Last Filed: 09/20/21 15:42> Discharge Medications: New ceftriaxone 2 gram recon soln 2 g IV Q24H Qty: 14 RF: 0 Continued calcium carbonate-vitamin D3 600 mg(1,500mg) -800 unit tablet 1 tab PO BID Qty: 60 RF: 11 cholecalciferol (vitamin D3) 50 mcg (2,000 unit) capsule 50 mcg PO DAILY Qty: 30 RF: 6 Complete MV Adult 50 Plus 0.4-300-250 mg-mcg-mcg tablet 1 tab PO DAILY Qty: 30 RF: 3 metformin 1,000 mg tablet 1,000 mg PO BID 30 Days Qty: 60 RF: 6 famotidine [Pepcid] 40 mg tablet 40 mg PO DAILY Qty: 4 RF: 0 rosuvastatin 40 mg tablet 40 mg PO BEDTIME RF: 0 dulaglutide 1.5 mg/0.5 mL pen injector 1.5 mg subcut MO@0900 RF: 0 oxycodone-acetaminophen 5-325 mg tablet 1 tab PO Q8H PRN (Reason: severe pain) RF: 0 pantoprazole 40 mg tablet,delayed release (DR/EC) 1 tab PO QAM RF: 0 fluticasone propionate 110 mcg/actuation HFA aerosol inhaler 1 puff inhalation BID RF: 0 albuterol sulfate 90 mcg/actuation HFA aerosol inhaler 2 puff PO Q4-6H PRN (Reason: dyspnea) RF: 0 ezetimibe 10 mg tablet 10 mg PO QAM 90 Days Qty: 90 RF: 2 nebivolol 5 mg tablet 5 mg PO DAILY RF: 0 pregabalin 75 mg capsule 75 mg PO BEDTIME RF: 0 loratadine 10 mg tablet 10 mg PO DAILY RF: 0 chlorthalidone 25 mg tablet 25 mg PO DAILY RF: 0 enalapril maleate 20 mg tablet 20 mg PO DAILY RF: 0 No Action (DME) FreeStyle Lite Strips Strip See Rx Instructions ea Not Applicable BID Qty: 10 RF: 0 <JOSE ELIAS Chau - Last Filed: 09/20/21 15:42> Discharge Orders: Discharge Order (Routine); Ordered 09/22/21 Ordered By: Mavis Lyon <JOSE ELIAS Chau - Last Filed: 09/20/21 15:42> Diet: diabetic diet <JOSE ELIAS Chau - Last Filed: 09/20/21 15:42> diabetic diet <Mavis Lyon NP - Last Filed: 09/22/21 16:16> Activity on Discharge: As tolerated <JOSE ELIAS Chau - Last Filed: 09/20/21 15:42> As tolerated <Mavis Lyon NP - Last Filed: 09/22/21 16:16> Stand Alone Forms: Patient Portal Discharge page <JOSE ELIAS Chau - Last Filed: 09/20/21 15:42> Care Plan Goals: See below <JOSE ELIAS Chau - Last Filed: 09/20/21 15:42> Health Concerns: sepsis pyelonephritis/kidney abscess bacteremia <JOSE ELIAS Chau - Last Filed: 09/20/21 15:42> Plan of Treatment: you will need IV antibiotics for the next 2 weeks to treat bacteremia and kidney abscess please have the midline removed after last dose call to schedule follow up appointment with your pcp you will need repeat CT scan of the abdomen in 3 months to assess for resolution of kidney abscess <JOSE ELIAS Chau - Last Filed: 09/20/21 15:42> Assessment: see discharge summary <JOSE ELIAS Chau - Last Filed: 09/20/21 15:42> Discharge Date/Time: 09/22/21 14:00 <JOSE ELIAS Chau - Last Filed: 09/20/21 15:42>
[2021-09-20 16:11] LABS: Glucose, Whole Blood 146 mg/dL (60-115)
[2021-09-20] MEDS: 0.9 % Sodium Chloride Flush 3 ML SYRINGE IVFLUSH (17:06)
[2021-09-20 18:58] LABS: CDiff Gene PCR NEGATIVE (Negative)
[2021-09-20 19:57] LABS: Glucose, Whole Blood 184 mg/dL (60-115)
[2021-09-20] MEDS: Pregabalin 75 MG CAPSULE PO (21:19)
[2021-09-21] VITALS (7 sets, daily range): BP systolic 126–165; BP diastolic 62–73; PULSE 55–80; RESP 16–20; TEMP 36–36.7; O2SAT 92–99
[2021-09-21] MEDS: 0.9 % Sodium Chloride Flush 3 ML SYRINGE IVFLUSH ×4 (00:02→20:52)
[2021-09-21] MEDS: Omeprazole 20 MG CAPSULE.DR PO (05:56)
[2021-09-21 07:29] LABS: Glucose, Whole Blood 124 mg/dL (60-115)
[2021-09-21] MEDS: Fluticasone Propionate 100 MCG BLST.W.DEV 1 PUFF INHALE ×2 (07:58→20:52)
[2021-09-21] MEDS: Heparin Sodium,Porcine 5,000 UNIT/ML VIAL 5000 UNIT SUBCUT ×2 (08:58→20:52)
[2021-09-21] MEDS: Multivitamin TABLET 1 TAB PO (08:59)
[2021-09-21] MEDS: Calcium + Vitamin D 250 MG TABLET 500 MG PO ×2 (08:59→20:52)
[2021-09-21] MEDS: cefTRIAXone sodium 2 GM in 0.9 % Sodium Chloride 50 ML IV (08:59)
[2021-09-21] MEDS: Loratadine 10 MG TABLET PO (08:59)
[2021-09-21] MEDS: Cholecalciferol (Vitamin D3) 25 MCG TABLET 50 MCG PO (08:59)
[2021-09-21] MEDS: Famotidine 20 MG TABLET 40 MG PO (10:02)
--- NOTE | 2021-09-21 11:08 | PM.DS ---
DS: Providers Provider Date of Service: 09/22/21 Date of admission: 09/17/21 14:11 Primary care physician: Audrey Calvo MD Consults: 09/16/21 17:39 Consult to General Surgery Routine Consulting Provider: Darrell Cano Reason for consultation: ABD pain, SBO on CT, possible kidney infection, patient hold in ED Has provider been notified: Yes 09/17/21 15:11 Consult to Infectious Diseases Routine Consulting Provider: Samira Kuhn Reason for consultation: sepsis/bacteremia/pelo/renal abscess Has provider been notified: No 09/19/21 07:16 Consult to Urology Routine Consulting Provider: Samira Kuhn Reason for consultation: sepsis/pyelo with kidney abscess Has provider been notified: No Attending physician on discharge: Jorge Johnson Discharging clinician: Mavis Lyon DS: Diagnosis Discharge Diagnosis (1) Focal pyelonephritis: Status: Acute (2) Sepsis: Status: Acute (3) Gram-negative bacteremia: Status: Acute DS: Summary Hospital Course Hospital Course: From h&P on day of admission This is a 66 year old female who presented to the emergency department with multiple complaints.? Her history was obtained with the assistance of a parts interpreter.? September 11 she began having bilateral lower back pain, nausea, vomiting, fever,? and shaking chills. She hoped her symptoms would improve but her daughter urged her to come to the emergency department.? On arrival she was noted to a fever of 103, was tachycardic and had increased respiratory rate meeting sepsis criteria.? Urinalysis showed bacteria but otherwise was relatively unremarkable.? Chest x-ray was also unremarkable. The initial CT scan of the abdomen showed concern over possible partial SBO, and she was seen by the surgical service who did that this was related to her previous bariatric surgery. Repeat CT scan of the abdomen with contrast revealed concern over pyelonephritis and possible associated abscess.? She denies any urinary frequency or dysuria. She has been having bowel movements She underwent IR guided drainage of the abscess with drainage of purulent material and placement of ORIANA drain. Her blood cultures have also returned positive for gram negative rods. She was treated with IV Zosyn and ceftriaxone and will be admitted to the medical service for further management. Sepsis secondary to pyelonephritis/renal abscess. Initially met sepsis criteria with fever, tachycardia and increased respiratory rate. her lactic acid was normal at LA 1.7 but she has severe features of sepsis due to elevated bilirubin. She received 30 cc/kg bolus based on ideal body weight. pyelonephritis/left renal abscess. Urinalysis was fairly bland and no urine culture was reflexed. She underwent IR guided drainage and ORIANA drain placement 09/17. She was initially treated with IV zosyn. Both the abscess fluid and blood cultures grew e.coli. She was seen by ID who recommend to change antibiotics to IV ceftriaxone. She will need IV ceftriaxone 2gm q24 for 14 days upon discharge. She was seen by urology who recommends repeat imaging in 3 months to ensure resolution of infection. Her blood pressure medications were initially held due to sepsis and soft blood pressure. Her blood pressure is improving and home medications can be continued at discharge. Time Spent with Patient Time attestation: Total time spent providing and/or coordinating discharge services: Discharge coordination time: Greater than 30 minutes Quality: Stroke Does the patient have a stroke diagnosis?: No Physical Exam Vital Signs: Vital Signs: Last Vital Signs Temp 96.8 F 09/21/21 10:53 Pulse 64 09/21/21 10:53 Resp 18 09/21/21 10:53 BP 143/71 H 09/21/21 10:53 Pulse Ox 98 09/21/21 10:53 BMI result Body Mass Index 39.0 Appearing in no acute distress head is normocephalic atraumatic eyes pupils are PERRLA sclera is anicteric mouth throat mucous membranes are intact and moist neck is supple no lymphadenopathy, no JVD noted lung sounds are clear to auscultation heart regular rate rhythm, clear S1, S2 positive bowel sounds, abdomen is soft, nontender neuro patient is alert x3, no focal deficits DS: Data Data Completed and Pending Labs on day of discharge: Laboratory Results - last 24 hr 09/20/21 09/20/21 09/20/21 11:23 16:03 16:45 POC Glucose 175 H 146 H C. difficile Tox B Gene NEGATIVE 09/20/21 09/21/21 19:50 07:26 POC Glucose 184 H 124 H C. difficile Tox B Gene Preliminary micro results at discharge 09/17/21 11:57 Fungal Identification - Preliminary Abscess Intra-abdominal No growth to date. 09/17/21 11:57 Anaerobic Culture - Preliminary Abscess Intra-abdominal Culture in progress. Discharge Plan Discharge Anticipated Discharge Date/Time: 09/22/21 12:12 Patient Disposition: Home Health Service Discharge Diagnosis: Sepsis Focal Pyelonephritis/Left kidney abscess gram negative bacteremia Referrals: Audrey Calvo MD [Primary Care Provider] - 1 Week Discharge Medications: New ceftriaxone 2 gram recon soln 2 g IV Q24H Qty: 14 RF: 0 Continued calcium carbonate-vitamin D3 600 mg(1,500mg) -800 unit tablet 1 tab PO BID Qty: 60 RF: 11 cholecalciferol (vitamin D3) 50 mcg (2,000 unit) capsule 50 mcg PO DAILY Qty: 30 RF: 6 Complete MV Adult 50 Plus 0.4-300-250 mg-mcg-mcg tablet 1 tab PO DAILY Qty: 30 RF: 3 metformin 1,000 mg tablet 1,000 mg PO BID 30 Days Qty: 60 RF: 6 famotidine [Pepcid] 40 mg tablet 40 mg PO DAILY Qty: 4 RF: 0 rosuvastatin 40 mg tablet 40 mg PO BEDTIME RF: 0 dulaglutide 1.5 mg/0.5 mL pen injector 1.5 mg subcut MO@0900 RF: 0 oxycodone-acetaminophen 5-325 mg tablet 1 tab PO Q8H PRN (Reason: severe pain) RF: 0 pantoprazole 40 mg tablet,delayed release (DR/EC) 1 tab PO QAM RF: 0 fluticasone propionate 110 mcg/actuation HFA aerosol inhaler 1 puff inhalation BID RF: 0 albuterol sulfate 90 mcg/actuation HFA aerosol inhaler 2 puff PO Q4-6H PRN (Reason: dyspnea) RF: 0 ezetimibe 10 mg tablet 10 mg PO QAM 90 Days Qty: 90 RF: 2 nebivolol 5 mg tablet 5 mg PO DAILY RF: 0 pregabalin 75 mg capsule 75 mg PO BEDTIME RF: 0 loratadine 10 mg tablet 10 mg PO DAILY RF: 0 chlorthalidone 25 mg tablet 25 mg PO DAILY RF: 0 enalapril maleate 20 mg tablet 20 mg PO DAILY RF: 0 No Action (DME) FreeStyle Lite Strips Strip See Rx Instructions ea Not Applicable BID Qty: 10 RF: 0 Discharge Orders: Discharge Order (Routine); Ordered 09/22/21 Ordered By: Mavis Lyon Diet: diabetic diet Activity on Discharge: As tolerated Stand Alone Forms: Patient Portal Discharge page Care Plan Goals: See below Health Concerns: sepsis pyelonephritis/kidney abscess bacteremia Plan of Treatment: you will need IV antibiotics for the next 2 weeks to treat bacteremia and kidney abscess please have the midline removed after last dose call to schedule follow up appointment with your pcp you will need repeat CT scan of the abdomen in 3 months to assess for resolution of kidney abscess Assessment: see discharge summary
[2021-09-21 11:10] LABS: Glucose, Whole Blood 161 mg/dL (60-115)
[2021-09-21] MEDS: Insulin Lispro 100 UNIT/ML 3 ML VIAL SUBCUT ×2 (11:23→20:53)
--- NOTE | 2021-09-21 16:26 | P.PNIM_ITS ---
Subjective Subjective Date of Service: 09/21/21 Review of Systems follow up for focal pyelonephritis/e.coli bacteremia feeling well, no abdominal pain, nausea or vomiting Physical Exam Vital Signs: Vital Signs: Last Vital Signs Temp 97.5 F 09/21/21 15:51 Pulse 59 09/21/21 15:51 Resp 16 09/21/21 15:51 BP 165/73 H 09/21/21 15:51 Pulse Ox 99 09/21/21 15:51 BMI result Body Mass Index 39.0 Appearing in no acute distress lung sounds are clear to auscultation heart regular rate rhythm, clear S1, S2 positive bowel sounds, abdomen is soft, nontender neuro patient is alert x3, no focal deficits Objective Data Active Medications Acetaminophen (Acetaminophen 325 Mg Tablet) 650 mg PO Q4H PRN PRN Reason: Pain, Moderate (Pain Scale 4-6 Last Admin: 09/18/21 14:20 Dose: 650 mg Documented by: SAE Acetaminophen (Acetaminophen Supp 650 Mg Supp.Rect) 650 mg PA Q6H PRN PRN Reason: Pain, Mild (Pain Scale 1-3) Albuterol Sulfate (Albuterol Sulfate 90 Mcg 8 Gm Inhaler) 2 puff INHALE Q4H PRN PRN Reason: dyspnea Albuterol Sulfate (Albuterol Sulfate (0.083%) 2.5 Mg/3 Ml Vial.Neb) 2.5 mg INHALE Q6H PRN PRN Reason: Shortness of Breath/Wheezing Calcium Carbonate/Cholecalciferol (Calcium + Vitamin D 250 Mg Tablet) 500 mg PO BID [facility] Last Admin: 09/21/21 08:59 Dose: 500 mg Documented by: COLLEEN Dextrose (Dextrose 50 % 25 Gm/50 Ml Vial) 25 gm IVPUSH Q15M PRN; Protocol PRN Reason: per Hypoglycemia Standing Ord. Docusate Sodium (Docusate Sodium 100 Mg Capsule) 100 mg PO DAILY PRN PRN Reason: Constipation Famotidine (Famotidine 20 Mg Tablet) 40 mg PO DAILY [facility] Last Admin: 09/21/21 10:02 Dose: 40 mg Documented by: COLLEEN Fluticasone Propionate (Fluticasone Propionate 100 Mcg Blst.W.Dev) 1 puff INHALE RBID [facility] Last Admin: 09/21/21 07:58 Dose: 1 puff Documented by: ALEKSEY Glucose (Glucose Gel 15 Gm Gel..Gram.) 15 gm PO Q15M PRN; Protocol PRN Reason: per Hypoglycemia Standing Ord. Heparin Sodium (Porcine) (Heparin Sodium,Porcine 5,000 Unit/Ml Vial) 5,000 unit SUBCUT Q12H [facility] Last Admin: 09/21/21 08:58 Dose: 5,000 unit Documented by: COLLEEN Ceftriaxone Sodium 2 gm/ (Sodium Chloride) 50 mls @ 100 mls/hr IV Q24H [facility] Last Infusion: 09/21/21 09:59 Dose: 0 mls/hr Documented by: COLLEEN Insulin Human Lispro (Insulin Lispro 100 Unit/Ml 3 Ml Vial) 0 unit SUBCUT QIDACHS [facility]; Protocol Last Admin: 09/21/21 11:23 Dose: 2 unit Documented by: COLLEEN Loratadine (Loratadine 10 Mg Tablet) 10 mg PO DAILY [facility] Last Admin: 09/21/21 08:59 Dose: 10 mg Documented by: COLLEEN Multivitamins/Vitamin C (Multivitamin Tablet) 1 tab PO DAILY [facility] Last Admin: 09/21/21 08:59 Dose: 1 tab Documented by: COLLEEN Omeprazole (Omeprazole 20 Mg Capsule.Dr) 20 mg PO DAILY@0630 [facility] Last Admin: 09/21/21 05:56 Dose: 20 mg Documented by: AJAY Ondansetron HCl (Ondansetron Hcl 4 Mg/2 Ml Vial) 4 mg IVPUSH Q8H PRN PRN Reason: Nausea and Vomiting Oxycodone HCl (Oxycodone Hcl Immed Release 5 Mg Tablet) 5 mg PO Q6H PRN PRN Reason: Pain, Severe (Pain Scale 7-10) Last Admin: 09/19/21 20:45 Dose: 5 mg Documented by: MADELIN Pharmacy Consult (Consult Rx Perform Med Rec) 1 each MISCELLANE ONCE PRN PRN Reason: Consult order Pharmacy Consult (Consult Rx Vancomycin Dosing) 1 each MISCELLANE DAILY PRN PRN Reason: Consult order Pregabalin (Pregabalin 75 Mg Capsule) 75 mg PO BEDTIME [facility] Last Admin: 09/20/21 21:19 Dose: 75 mg Documented by: JAYSON Sodium Chloride (0.9 % Sodium Chloride Flush 3 Ml Syringe) 3 ml IVFLUSH QSHIFT [facility] Last Admin: 09/21/21 09:03 Dose: 3 ml Documented by: COLLEEN Vitamin D (Cholecalciferol (Vitamin D3) 25 Mcg Tablet) 50 mcg PO DAILY [facility] Last Admin: 09/21/21 08:59 Dose: 50 mcg Documented by: COLLEEN Labs CBC & Chem 7: 09/20/21 06:25 09/20/21 06:25 Labs: Laboratory Results - last 24 hr 09/20/21 09/20/21 09/21/21 16:45 19:50 07:26 POC Glucose 184 H 124 H C. difficile Tox B Gene NEGATIVE 09/21/21 10:52 POC Glucose 161 H C. difficile Tox B Gene Microbiology Microbiology Results: Microbiology 09/17/21 11:57 Fungal Identification - Preliminary Abscess Intra-abdominal No growth to date. 09/17/21 11:57 Gram Stain - Final Abscess Intra-abdominal Routine Culture - Final Escherichia coli Anaerobic Culture - Preliminary Culture in progress. Assessment and Plan (1) Focal pyelonephritis: Status: Acute (2) Sepsis: Status: Acute Assessment and Plan: This is a 66 [place]-speaking female with history of diabetes, hypertension, hyperlipidemia, asthma, sleeve gastrectomy who presents to the emergency department with nausea vomiting fever chills found to have sepsis secondary to pyelonephritis with renal abscess Sepsis secondary to pyelonephritis/renal abscess met sepsis criteria with fever, tachycardia and increased respiratory rate LA 1.7. severe features with elevated bilirubin received 30 cc/kg bolus based on ideal body weight pyelonephritis/left renal abscess ua fairly bland, no urine culture s/p IR guided drainage and ORIANA drain placement 09/17, removal 09/21/21 abscess fluid growing e.coli seen by ID, recommend to change abx to IV ceftriaxone, will need IV ceftriaxone 2gm q24 for 14 days upon discharge seen by urology, recommend repeat imaging in 3 months to ensure resolution midline placement ordered and pending gram negative bulmaro bacteremia 2/2 BCx from 09/16 growing e.coli r/t above pyelo/renal abscess initially treated with IV zosyn, changed to ceftriaxone 09/19 hypokalemia improved with replacement elevated LFTs likely secondary to sepsis trending down follow elevated trop no chest pain; ekg non-specific changes trops flat likely secondary to sepsis Diabetes trulicity non-formulary hold metformin SSI, POCs, ADA diet HTN BP soft and in setting of sepsis with hold home meds (chlorthalidone, enalapril, bystolic) monitor BP closely HLD hold statin, zetia gerd on pantoprazole and pepcid asthma no acute exacerbation continue home inhalers peripheral neuropathy continue lyrica dvt ppx - haparin code status - full code attending -?Dr. Johnson Quality Stroke Does the patient have a stroke diagnosis?: No VTE Prior VTE?: No VTE Risk Level:: Medical - moderate - high VTE Device Contraindication: N/A - Device Ordered VTE Drug Contraindication: N/A - Med Ordered
[2021-09-21 16:39] LABS: Glucose, Whole Blood 113 mg/dL (60-115)
[2021-09-21 20:18] LABS: Glucose, Whole Blood 181 mg/dL (60-115)
[2021-09-21] MEDS: Pregabalin 75 MG CAPSULE PO (20:52)
[2021-09-22 03:06] VITALS: PULSE 60
[2021-09-22] MEDS: Omeprazole 20 MG CAPSULE.DR PO (05:33)
[2021-09-22 07:10] LABS: Glucose, Whole Blood 132 mg/dL (60-115)
[2021-09-22 07:21] VITALS: BP 147/63; PULSE 65; RESP 18; TEMP 36.9; O2SAT 98
[2021-09-22] MEDS: Fluticasone Propionate 100 MCG BLST.W.DEV 1 PUFF INHALE (07:57)
[2021-09-22 07:58] VITALS: PULSE 68; RESP 18; O2SAT 98
--- NOTE | 2021-09-22 11:27 | HO.MIDLINE_ITS ---
PICC Line Insertion MIDLINE INSERTION Diagnosis: KIDNEY ABSCESS Indication: RESIDENTIAL IV ANTIBIOTICS Pertinent Labs: REVIEWED Technique: Using sterile technique including cap and mask, glove and drape, the LEFT arm was prepped and draped in the usual sterile fashion of full barrier technique with CHG. Using ultrasound guidance, CEPHALIC vein access was obtained IN SINGLE ATTEMPT BY THIS RN; R ARM ACCESS PREVIOUSLY ATTEMPTED BY RN MIGUEL Rowan, THOUGH UNSUCCESSFUL. A SINGLE LUMEN, NON-PASV, (20G X 8CM) MIDLINE was positioned. The procedure was performed in S-272. Ultrasound was used to document vein patency and for needle entry. A formal ultrasound picture was recorded. [employer] has released the line for use and it is currently dressed with a StatLock, Tegaderm, and CHG disc. Verification has been performed for blood return and line patency. Arm Circumference: 36.5 CM Equipment: [employer] POWERGLIDE PRO Catheter Type: SINGLE LUMEN, NON-PASV, (20G X 8CM) Lot #: [id number]
[2021-09-22 11:51] LABS: Glucose, Whole Blood 113 mg/dL (60-115)
[2021-09-22] MEDS: 0.9 % Sodium Chloride Flush 3 ML SYRINGE IVFLUSH (11:57)
[2021-09-22] MEDS: cefTRIAXone sodium 2 GM in 0.9 % Sodium Chloride 50 ML IV (11:57)
[2021-09-22] MEDS: Heparin Sodium,Porcine 5,000 UNIT/ML VIAL 5000 UNIT SUBCUT (11:58)
[2021-09-22] MEDS: Famotidine 20 MG TABLET 40 MG PO (11:59)
[2021-09-22] MEDS: Cholecalciferol (Vitamin D3) 25 MCG TABLET 50 MCG PO (11:59)
[2021-09-22] MEDS: Multivitamin TABLET 1 TAB PO (12:00)
[2021-09-22] MEDS: Loratadine 10 MG TABLET PO (12:00)
[2021-09-22] MEDS: Calcium + Vitamin D 250 MG TABLET 500 MG PO (12:00)
== END 2021-09-22 14:00 | disposition home health service (06) | DRG 871 ==
LOC: HO.ED 09-17 06:50 → HO.EDOVER 09-17 14:12 → HO.IMC 09-17 14:34
PROVIDERS: Emergency Medicine; Family Medicine; Radiology Diagnostic Radiology; Urology; Admitting Provider Physician Assistant Medical; Emergency Provider Emergency Medicine Emergency Medical Services; PCP Internal Medicine; Visit Provider Nurse Practitioner Acute Care
PROC: 0T9130Z Drainage of Left Kidney with Drainage Device, Percutaneous Approach (ICD-10-PCS; principal; 2021-09-17 10:30)
DX: A41.51 Sepsis due to Escherichia coli [E. coli] (principal); N15.1 Renal and perinephric abscess; N12 Tubulo-interstitial nephritis, not specified as acute or chronic; E66.01 Morbid (severe) obesity due to excess calories; Z68.39 Body mass index [BMI] 39.0-39.9, adult; E87.6 Hypokalemia; K21.9 Gastro-esophageal reflux disease without esophagitis; J45.909 Unspecified asthma, uncomplicated; E11.42 Type 2 diabetes mellitus with diabetic polyneuropathy; Z20.822 Contact with and (suspected) exposure to COVID-19; Z98.84 Bariatric surgery status; Z23 Encounter for immunization; Z79.51 Long term (current) use of inhaled steroids; Z79.84 Long term (current) use of oral hypoglycemic drugs; Z79.899 Other long term (current) drug therapy
CPT/HCPCS: 36410; 36415; 49406; 71045; 74176; 74177; 76705; 80048; 80076; 81001; 82947; 83036; 83605; 83690; 83880; 84484; 85007; 85025; 85027; 85610; 85730; 87040; 87071; 87073; 87077; 87102; 87186; 87205; 87493; 87635; 90686; 93005; 94640; 94664; 96361; 96365; 96366; 96367; 96375; 99285; C1729; J0696; J2543; J3370; Q9967

== ENCOUNTER 2021-09-29 12:08 | Outpatient (REF) | payer MEDICARE, MEDICAID, SELFPAY ==
[2021-09-29 12:10] LABS: MANUAL DIFF FLAG NO
[2021-09-29 12:33] LABS: Blood Urea Nitrogen 6 mg/dL (9-16); Estimated Glomerular Filt Rate > 60
[2021-09-29 13:00] LABS: Eosinophils Absolute Auto 0.1 X10*3/uL (0.0-0.4); Eosinophils Percent Auto 1.8 % (0-4); Hematocrit 41.6 % (37.0-47.0); Imm Gran Abs Auto 0.01 X10*3/uL (0.00-0.03); Imm Gran Pct Auto 0.3 % (0.0-0.4); Lymphocytes Absolute Auto 1.1 X10*3/uL (1.2-4.9); Lymphocytes Percent Auto 26.9 % (20-40); Mean Corpuscular HGB Conc 32.7 g/dl (31.0-35.0); Mean Corpuscular Hemoglobin 27.4 pg (27.0-33.0); Mean Corpuscular Volume 83.7 fL (80.0-98.0); Mean Platelet Volume 10.4 fL (9.4-12.3); Monocytes Absolute Auto 0.3 X10*3/uL (0.1-1.2); Monocytes Percent Auto 8.6 % (2-11); Neutrophils Absolute Auto 2.4 x10*3/uL (2.0-8.3); Neutrophils Percent Auto 61.4 % (45-73); Platelet Count 291 X10*3/uL (160-400); Red Blood Count 4.97 X10*6/uL (4.20-5.50); Red Cell Distribution Width 13.6 % (11.0-16.0); White Blood Count 3.9 X10*3/uL (4.8-10.8)
[2021-09-29 13:13] LABS: Hemoglobin 13.6 g/dl (12.0-16.0)
== END 2021-09-29 12:09 | disposition home or self-care (01) ==
LOC: HO.HVNA 12:08
PROVIDERS: Visit Provider Internal Medicine
DX: A41.51 Sepsis due to Escherichia coli [E. coli] (principal)
CPT/HCPCS: 36415; 82565; 84520; 85025

== ENCOUNTER 2021-10-06 12:11 | Outpatient (REF) | payer MEDICARE, MEDICAID, SELFPAY ==
[2021-10-06 12:14] LABS: MANUAL DIFF FLAG NO
[2021-10-06 12:16] LABS: Basophils Absolute Auto 0.1 X10*3/uL (0.0-0.2); Basophils Percent Auto 1.3 % (0-2); Eosinophils Absolute Auto 0.2 X10*3/uL (0.0-0.4); Eosinophils Percent Auto 4.3 % (0-4); Hematocrit 43.2 % (37.0-47.0); Hemoglobin 14.1 g/dl (12.0-16.0); Imm Gran Abs Auto 0.02 X10*3/uL (0.00-0.03); Imm Gran Pct Auto 0.5 % (0.0-0.4); Lymphocytes Absolute Auto 1.8 X10*3/uL (1.2-4.9); Lymphocytes Percent Auto 45.6 % (20-40); Mean Corpuscular HGB Conc 32.6 g/dl (31.0-35.0); Mean Corpuscular Hemoglobin 27.5 pg (27.0-33.0); Mean Corpuscular Volume 84.4 fL (80.0-98.0); Mean Platelet Volume 10.6 fL (9.4-12.3); Monocytes Absolute Auto 0.2 X10*3/uL (0.1-1.2); Monocytes Percent Auto 5.3 % (2-11); Neutrophils Absolute Auto 1.7 x10*3/uL (2.0-8.3); Platelet Count 293 X10*3/uL (160-400); Red Blood Count 5.12 X10*6/uL (4.20-5.50); Red Cell Distribution Width 12.8 % (11.0-16.0)
[2021-10-06 12:34] LABS: Blood Urea Nitrogen 14 mg/dL (9-16); Estimated Glomerular Filt Rate 59
== END 2021-10-06 12:12 | disposition home or self-care (01) ==
LOC: HO.HVNA 12:11
PROVIDERS: Visit Provider Internal Medicine
DX: A41.51 Sepsis due to Escherichia coli [E. coli] (principal)
CPT/HCPCS: 36415; 82565; 84520; 85025

== ENCOUNTER 2021-10-29 09:37 | Outpatient (REF) | payer MEDICARE, MEDICAID, SELFPAY ==
--- NOTE | ~2021-10-29 | XR_ITS ---
EXAMINATION: XR ANKLE, RIGHT XR FOOT, RIGHT CLINICAL INFORMATION: Achilles tendinitis, right leg COMPARISON: 05/23/2020 TECHNIQUE: AP, lateral, and mortise views of the right ankle and AP, lateral, and oblique views of the right foot. FINDINGS: RIGHT ANKLE: There is soft tissue swelling around the ankle diffusely with associated subcutaneous edema. No fracture or malalignment. There is an osseous prominence at the posteromedial margin of the distal fibula near the distal tibiofibular syndesmosis which may correspond to chronic osseous remodeling from a prior distal tibiofibular syndesmotic injury or, alternatively, abnormal morphology due to a small osteochondroma. The former is favored. Talocrural joint appears well-preserved. There is soft tissue fullness at the Achilles near the calcaneal insertion. Blunting of the calcaneal insertion is consistent with post surgical changes of prior calcaneal debridement and Achilles tendon reattachment. A small 5 mm ossific fragment at the deep margin of the Achilles in this region may be related to prior surgery. Otherwise, no acute osseous findings in this region. RIGHT FOOT: No acute fracture or malalignment. Small enthesopathic spur is present at the plantar fascial origin on the calcaneus. Subtle enthesopathic spurring at the medial margin of the medial cuneiform likely corresponds to the insertion of the anterior tibialis anterior tendon. A few additional small foci of enthesopathic spurring are present at the foot, most notably at the 5th metatarsal base. There is osteoarthritis at the small toe interphalangeal joint. Midfoot joints appear well-preserved. XR/XR ankle RT min 3V IMPRESSION: 1. Prior Achilles tendon surgery with soft tissue swelling near the calcaneal attachment. No acute osseous findings. 2. Mild osteoarthritis at the small toe interphalangeal joint. Joints otherwise are relatively well-preserved. 3. Mild multifocal enthesopathy at the foot and ankle. 4. Chronic osseous excrescence at the posteromedial margin of the distal fibular metadiaphysis near the tibia-fibula syndesmosis, most likely the result of a prior syndesmotic injury. An osteochondroma could also produce this appearance.
== END 2021-10-29 09:38 | disposition home or self-care (01) ==
LOC: HO.XRAY 09:37
PROVIDERS: PCP Internal Medicine; Visit Provider Internal Medicine
DX: M76.61 Achilles tendinitis, right leg (principal)
CPT/HCPCS: 73610; 73630

== ENCOUNTER 2021-11-03 07:49 | Outpatient (REF) | payer MEDICARE, MEDICAID, SELFPAY ==
--- NOTE | ~2021-11-03 | MM_ITS ---
EXAMINATION: MM SCREENING DIGITAL BREAST TOMOSYNTHESIS, BILATERAL CLINICAL INFORMATION: Screening. Asymptomatic. The lifetime risk of breast cancer based on the Tyrer-Cuzick Model is 5%. COMPARISON: Mammography: 12/28/2016, 10/20/2015 TECHNIQUE: Digital breast tomosynthesis is performed in both the craniocaudal and mediolateral oblique views along with computer-aided detection (CAD). Synthesized 2D images are generated from the tomosynthesis. FINDINGS: The breasts are almost entirely fatty (ACR BI-RADS breast composition Category a). Background stromal markings are stable. There is no interval mass or architectural abnormality or abnormal calcifications. The axilla and skin contours are unremarkable. There are no significant changes from prior studies. MM/MM tomosynthesis screening BI IMPRESSION: No mammographic evidence of malignancy. ASSESSMENT: BI-RADS 1: Negative RECOMMENDATION: Routine annual mammography screening. This patient's information was entered into a reminder system with a target due date for their next mammogram.
== END 2021-11-03 07:50 | disposition home or self-care (01) ==
LOC: HO.MAMMO 07:49
PROVIDERS: Visit Provider Internal Medicine
DX: Z12.31 Encounter for screening mammogram for malignant neoplasm of breast (principal)
CPT/HCPCS: 77063; 77067

== ENCOUNTER 2021-11-12 09:05 | Outpatient (REF) | payer MEDICARE, MEDICAID, SELFPAY ==
[2021-11-12 10:03] LABS: Estimated Average Glucose 200 mg/dL; Hemoglobin A1c % 8.6 %
[2021-11-12 10:27] LABS: Alanine Aminotransferase 13 U/L (0-31); Albumin Level 4.2 g/dL (3.5-5.0); Alkaline Phosphatase 92 U/L (39-117); Anion Gap 12 (12-20); Aspartate Amino Transferase 13 U/L (5-31); Bilirubin Total 1.3 mg/dL (0.0-1.0); Blood Urea Nitrogen 12 mg/dL (9-16); Calcium 9.6 mg/dL (8.4-10.2); Carbon Dioxide 31 mmol/L (22-29); Chloride 101 mmol/L (96-108); Cholesterol 257 mg/dL; Estimated Glomerular Filt Rate > 60; Glucose Fasting 192 mg/dL (60-99); HDL Cholesterol 52 mg/dL; LDL Cholesterol Calculated 170 mg/dl; Potassium 3.9 mmol/L (3.3-5.1); Sodium 140 mmol/L (135-145); Total Protein 7.1 g/dL (6.5-8.0); Triglycerides 175 mg/dL
[2021-11-12 10:51] LABS: Vitamin D 25-OH Total 34.5 ng/mL (>30)
== END 2021-11-12 09:06 | disposition home or self-care (01) ==
LOC: HO.LAB 09:05
PROVIDERS: PCP Internal Medicine; Visit Provider Internal Medicine Endocrinology, Diabetes & Metabolism
DX: E11.65 Type 2 diabetes mellitus with hyperglycemia (principal); E11.40 Type 2 diabetes mellitus with diabetic neuropathy, unspecified; E78.5 Hyperlipidemia, unspecified; E55.9 Vitamin D deficiency, unspecified
CPT/HCPCS: 36415; 80053; 80061; 82306; 82947; 83036; 99212

== ENCOUNTER 2021-11-25 16:11 | Outpatient (REF) | payer MEDICARE, MEDICAID, SELFPAY ==
--- NOTE | ~2021-11-25 | MR_ITS ---
EXAMINATION: MRI ANKLE WITHOUT CONTRAST, RIGHT CLINICAL INFORMATION: Chronic pain. Patient reports posterior/lateral swelling and pain. Prior ankle surgery. Patient states ligaments repair 2020. COMPARISON: X-ray 10/29/2021 TECHNIQUE: MRI of the ankle without contrast is performed in a 1.5 Erin high-field scanner. FINDINGS: BONE/JOINTS: There is osseous prominence along the posteromedial aspect of the distal fibular metaphysis, with cortical and medullary continuity. This has a chronic appearance, could be prior trauma or an osteochondroma. There are postsurgical changes in the posterior calcaneus, with bone anchors in the posterior calcaneus and edema along the superior aspect of the posterior calcaneus. Talocrural joint is preserved. No acute fractures seen. MUSCLES/TENDONS: Peroneus brevis tendinosis as it courses distal to the fibula. Peroneus longus is intact. Medial flexor, extensor tendons intact. LIGAMENTS: The anterior talofibular ligament is markedly attenuated, with some amorphous tissue present. Findings indicative of high-grade or full-thickness tear. Posterior talofibular, tibiofibular, calcaneofibular ligaments intact. Deltoid ligament is intact. ACHILLES TENDON: Evidence of prior Achilles tendon surgery. There is thickening and heterogeneous signal and intrasubstance T2 signal in the distal Achilles tendon, predominantly involving a segment approximately 4.7 cm in length. This has the appearance of postsurgical changes. Superimposed tendinosis cannot be excluded. No focal tendon defect or retraction is seen. PLANTAR FASCIA: Intact. SINUS TARSI: Normal signal. TARSAL TUNNEL : Unremarkable SUBCUTANEOUS SOFT TISSUES: Subcutaneous edema medially. MR/MR ankle RT wo con IMPRESSION: 1. Prior Achilles tendon repair surgery. Postsurgical changes in the bony calcaneus. Findings in the distal Achilles tendon, presumably related to tendon repair, plus/minus tendinosis. No tendon defect or retraction is seen. 2. Anterior talofibular ligament high-grade or full-thickness tear, with markedly diminutive tissue. 3. Chronic appearing osseous prominence along the posteromedial aspect of the distal femoral metaphysis, which could reflect sequela for trauma versus osteochondroma. 4. Peroneus brevis tendinosis as it courses distal to the fibula.
== END 2021-11-25 16:12 | disposition home or self-care (01) ==
LOC: HO.MRI 16:11
PROVIDERS: Visit Provider Internal Medicine
DX: G89.29 Other chronic pain (principal); M25.571 Pain in right ankle and joints of right foot; M77.50 Other enthesopathy of unspecified foot and ankle
CPT/HCPCS: 73721

== ENCOUNTER → 2021-11-30 11:03 | Outpatient (BNVA) | payer MEDICARE, MEDICAID, SELFPAY | PROVIDERS: PCP Internal Medicine | DX: N12 Tubulo-interstitial nephritis, not specified as acute or chronic (principal); N15.1 Renal and perinephric abscess | CPT/HCPCS: 99202 ==

== ENCOUNTER 2021-12-02 10:24 | Outpatient (REF) | payer MEDICARE, MEDICAID, SELFPAY ==
--- NOTE | ~2021-12-02 | CT_ITS ---
EXAMINATION: CT ABDOMEN WITH CONTRAST CLINICAL INFORMATION: Renal and perinephric abscess. COMPARISON: CT brain 09/16/2021. TECHNIQUE: Contiguous axial thin section helical images of the abdomen were performed following the administration of oral contrast and 85 mL of Omnipaque 350 intravenous contrast. The data set was reformatted in the coronal and sagittal planes and reviewed on an independent workstation. This CT examination was performed using dose optimization techniques as appropriate, variously including the following: *Automated exposure control *Adjustment of mA and/or kV according to patient size (this includes techniques or standardized protocols for targeted exams where dose is matched to indication/reason for exam; i.e. extremities or head) *Use of iterative reconstruction technique DLP: 302 mGy-cm FINDINGS: LUNG BASES: Minimal right basilar compressive atelectasis seen. Heart size is normal. There is a small hiatal hernia. LIVER, GALLBLADDER, AND BILIARY TREE: The liver is homogeneous in density, normal size, shape and contour. No focal lesion seen. There is no intrahepatic duct dilatation. The gallbladder is not visualized. PANCREAS: The pancreas is homogeneous in density and normal size. No focal lesion seen. SPLEEN: The spleen is normal size. ADRENAL GLANDS AND KIDNEYS: Bilateral adrenal glands are symmetric and normal. Kidney nephrograms show normal cortical enhancement, normal size. There is no evidence of abscess. There is a known lower pole exophytic cyst right kidney measuring 5.9 x 5.6 x 5.8 cm. It appears stable. No radiopaque renal calculi seen on this exam. There is no hydronephrosis. BOWEL LOOPS: There is scattered stool and gas seen throughout the colon without any significant distention. The small bowel loops are normal caliber. There are surgical darion along the greater curvature of stomach likely gastric sleeve surgery changes. LYMPH NODES: Normal. VASCULAR: Unremarkable. BONES: Mild degenerative L5-S1 disc changes with ventral spondylosis. No aggressive lytic or sclerotic process seen. CT/CT abdomen w con IMPRESSION: There is no evidence of left renal abscess or mass. Stable exophytic cyst lower pole right kidney. No radiopaque calculi or hydronephrosis seen on present exam. Mild constipation. Small hiatal hernia with evidence of gastric sleeve surgery. Fleischner guidelines were followed.
[2021-12-02] MEDS: iohexoL 350 MG/ML 100 ML INFUS..BTL IV (11:04)
== END 2021-12-02 10:25 | disposition home or self-care (01) ==
LOC: HO.CT 10:24
PROVIDERS: Visit Provider Internal Medicine
DX: N15.1 Renal and perinephric abscess (principal)
CPT/HCPCS: 74160; Q9967

== ENCOUNTER → 2021-12-28 09:39 | Outpatient (BNVA) | payer MEDICARE, MEDICAID, SELFPAY | PROVIDERS: PCP Internal Medicine; Visit Provider Registered Nurse Diabetes Educator | DX: E11.65 Type 2 diabetes mellitus with hyperglycemia (principal); Z71.3 Dietary counseling and surveillance; Z71.89 Other specified counseling | CPT/HCPCS: 99211 ==

== ENCOUNTER → 2022-01-13 12:37 | Outpatient (BNVA) | payer MEDICARE, MEDICAID, SELFPAY | PROVIDERS: PCP Internal Medicine; Visit Provider Dietitian, Registered | DX: E11.65 Type 2 diabetes mellitus with hyperglycemia (principal) | CPT/HCPCS: 97802 ==

== ENCOUNTER 2022-02-08 11:19 | Outpatient (REF) | payer MEDICARE, MEDICAID, SELFPAY ==
--- NOTE | ~2022-02-08 | US_ITS ---
EXAMINATION: US RETROPERITONEAL LIMITED (RENAL ONLY) CLINICAL INFORMATION: Tubulointerstitial nephritis. Pyelonephritis. COMPARISON: CT abdomen 12/02/2021. MRI abdomen 10/13/2021. Limited abdomen ultrasound 09/16/2021. Ultrasound abdomen with elastography 06/06/2018. TECHNIQUE: Real-time imaging of the kidneys. FINDINGS: RIGHT KIDNEY: 11.1 x 5.0 x 5.4 cm (SAG x AP x TRV). The kidney is normal in size, contour, and echogenicity. Renal cortical thickness is normal. There is a 5 x 6 cm cyst in the lower pole. No renal calculi or hydronephrosis. LEFT KIDNEY: 11.1 x 5.3 x 4.3 cm (SAG x AP x TRV). The kidney is normal in size, contour, and echogenicity. Renal cortical thickness is normal. No calculi or focal parenchymal lesions. No hydronephrosis. US/US renal BI IMPRESSION: Right renal cyst otherwise unremarkable exam.
== END 2022-02-08 11:20 | disposition home or self-care (01) ==
LOC: HO.US 11:19
DX: N12 Tubulo-interstitial nephritis, not specified as acute or chronic (principal); N15.1 Renal and perinephric abscess
CPT/HCPCS: 76775

== ENCOUNTER 2022-03-15 10:49 | Outpatient (REF) | payer MEDICARE, MEDICAID, SELFPAY ==
--- NOTE | ~2022-03-15 | XR_ITS ---
EXAMINATION: XR ELBOW, LEFT CLINICAL INFORMATION: Pain COMPARISON: None TECHNIQUE: AP, lateral, and oblique views of the left elbow. FINDINGS: There is spurring from the medial and lateral epicondyles. No fracture, dislocation, destructive process, or elbow capsular effusion. No joint narrowing or erosive change. XR/XR elbow LT min 3V IMPRESSION: -Spurring medial and lateral epicondyles.
== END 2022-03-15 10:50 | disposition home or self-care (01) ==
LOC: HO.XRAY 10:49
PROVIDERS: Absent Provider Internal Medicine; PCP Internal Medicine; Visit Provider Registered Nurse
DX: M25.522 Pain in left elbow (principal)
CPT/HCPCS: 73080

== ENCOUNTER → 2022-04-05 10:53 | Outpatient (BNVA) | payer MEDICARE, MEDICAID, SELFPAY | PROVIDERS: PCP Internal Medicine | DX: N12 Tubulo-interstitial nephritis, not specified as acute or chronic (principal) | CPT/HCPCS: 99212 ==

== ENCOUNTER 2022-04-16 12:42 | Outpatient (RCR) | payer MEDICARE, MEDICAID, SELFPAY ==
--- NOTE | 2022-05-21 13:22 | MHC.OT.DC ---
[address] [phone] F: [phone] Occupational Therapy Discharge Note Provider: Dr Catherine Diagnosis: Left elbow pain Date of Evaluation: 04/16/22 Date of Discharge: 05/21/22 Treatments to Date: 1 Discharge Status: Patient Elected to Stop Discharge Summary: Pt was seen for initial OT assessment over one month ago. She was given home exercise program and educated on simple pain management techniques, but did not follow up for further OT services. Electronically Signed By: ADRIANO Archer/Lon DAWSONT Reviewed/agree with student documentation: Therapist: Please Sign and return to therapist, thank you for your referral.
== END 2022-05-21 13:22 | disposition home or self-care (01) ==
LOC: HO.OT 12:42
PROVIDERS: Visit Provider Registered Nurse
DX: M25.522 Pain in left elbow (principal)
CPT/HCPCS: 97110; 97165

== ENCOUNTER 2022-04-27 08:34 | Outpatient (REF) | payer MEDICARE, MEDICAID, SELFPAY ==
[2022-04-27 09:23] LABS: Albumin Level 4.1 g/dL (3.5-5.0); Blood Urea Nitrogen 12 mg/dL (9-16); Estimated Glomerular Filt Rate > 60
[2022-04-27 09:45] LABS: Vitamin D 25-OH Total 24.8 ng/mL (>30)
[2022-04-28 10:42] LABS: Calcium (PTHI) 9.5 mg/dL (8.6-10.4); PTHI 118 pg/mL (16-77)
== END 2022-04-27 08:35 | disposition home or self-care (01) ==
LOC: HO.LAB 08:34
PROVIDERS: Urology; PCP Internal Medicine; Visit Provider Internal Medicine Endocrinology, Diabetes & Metabolism
DX: R39.15 Urgency of urination (principal); E55.9 Vitamin D deficiency, unspecified; N15.1 Renal and perinephric abscess
CPT/HCPCS: 36415; 82040; 82306; 82565; 83970; 84520

== ENCOUNTER → 2022-04-30 08:51 | Outpatient (BNVA) | payer MEDICARE, MEDICAID, SELFPAY | PROVIDERS: PCP Internal Medicine; Visit Provider Internal Medicine Endocrinology, Diabetes & Metabolism | DX: E78.5 Hyperlipidemia, unspecified (principal); E11.65 Type 2 diabetes mellitus with hyperglycemia | CPT/HCPCS: 82947; 99212 ==

== ENCOUNTER → 2022-06-10 09:29 | Outpatient (BNVA) | payer MEDICARE, MEDICAID, SELFPAY | PROVIDERS: PCP Internal Medicine; Visit Provider Registered Nurse Diabetes Educator | DX: E11.65 Type 2 diabetes mellitus with hyperglycemia (principal); Z79.84 Long term (current) use of oral hypoglycemic drugs | CPT/HCPCS: 99211 ==

== ENCOUNTER 2022-06-23 07:56 | Outpatient (REF) | payer OTHER, SELFPAY ==
--- NOTE | ~2022-06-23 | XR_ITS ---
EXAMINATION: XR ELBOW, LEFT CLINICAL INFORMATION: Pain in left elbow COMPARISON: Prior x-rays of the left elbow February 2022 TECHNIQUE: AP, lateral, and oblique views of the left elbow. FINDINGS: The bones and soft tissues are normal. No fracture or joint effusion. Alignment is anatomic. Joint spaces are maintained. XR/XR elbow LT min 3V IMPRESSION: Normal left elbow.
--- NOTE | 2022-06-23 08:03 | ECG_ITS ---
Test Reason : z01.818 Blood Pressure : / mmHG Vent. Rate : 060 BPM Atrial Rate : 060 BPM P-R Int : 148 ms QRS Dur : 088 ms QT Int : 450 ms P-R-T Axes : 013 -11 011 degrees QTc Int : 450 ms Normal sinus rhythm with sinus arrhythmia Normal ECG When compared with ECG of 16-SEP-2021 07:16, Nonspecific T wave abnormality no longer evident in Lateral leads QT has shortened QRS axis Shifted right Heart rate has decreased Referred By: Audrey Calvo Electronically Signed By:MELLY ORTIZ
== END 2022-06-23 07:57 | disposition home or self-care (01) ==
LOC: HO.XRAY 07:56
PROVIDERS: Absent Provider Registered Nurse; PCP Internal Medicine; Visit Provider Internal Medicine
DX: Z01.818 Encounter for other preprocedural examination (principal); E11.8 Type 2 diabetes mellitus with unspecified complications; M25.522 Pain in left elbow
CPT/HCPCS: 73080; 93005

== ENCOUNTER 2022-08-16 07:56 | Outpatient (REF) | payer OTHER, SELFPAY ==
[2022-08-16 08:44] LABS: Cholesterol 179 mg/dL; HDL Cholesterol 60 mg/dL; LDL Cholesterol Calculated 102 mg/dl; Triglycerides 87 mg/dL
== END 2022-08-16 07:57 | disposition home or self-care (01) ==
LOC: HO.LAB 07:56
PROVIDERS: PCP Internal Medicine; Visit Provider Internal Medicine Endocrinology, Diabetes & Metabolism
DX: E78.5 Hyperlipidemia, unspecified (principal)
CPT/HCPCS: 36415; 80061

== ENCOUNTER → 2022-08-20 09:43 | Outpatient (BNVA) | payer OTHER, SELFPAY | PROVIDERS: PCP Internal Medicine; Visit Provider Internal Medicine Endocrinology, Diabetes & Metabolism | DX: E78.5 Hyperlipidemia, unspecified (principal); E11.65 Type 2 diabetes mellitus with hyperglycemia; E55.9 Vitamin D deficiency, unspecified; Z79.01 Long term (current) use of anticoagulants; Z51.81 Encounter for therapeutic drug level monitoring | CPT/HCPCS: 82947; 83036; 99212 ==

== ENCOUNTER → 2022-08-23 13:13 | Outpatient (BNVA) | payer OTHER, SELFPAY | PROVIDERS: PCP Internal Medicine; Visit Provider Registered Nurse Diabetes Educator | DX: E11.65 Type 2 diabetes mellitus with hyperglycemia (principal) | CPT/HCPCS: 95250; 99211 ==

== ENCOUNTER → 2022-09-06 08:28 | Outpatient (BNVA) | payer OTHER, SELFPAY | PROVIDERS: PCP Internal Medicine; Visit Provider Registered Nurse Diabetes Educator | DX: E11.65 Type 2 diabetes mellitus with hyperglycemia (principal) | CPT/HCPCS: 99211 ==

== ENCOUNTER 2022-10-13 08:00 | Outpatient (RCR) | payer OTHER, SELFPAY ==
[2022-08-16 09:06] VITALS: BP 210/84; PULSE 58
== END 2022-10-13 08:56 | disposition home or self-care (01) ==
LOC: HO.PT 08:00
PROVIDERS: PCP Internal Medicine; Visit Provider Orthopaedic Surgery
DX: Z98.890 Other specified postprocedural states (principal)
CPT/HCPCS: 97110; 97112; 97140; 97161; 97530

== ENCOUNTER 2022-11-09 07:44 | Outpatient (REF) | payer OTHER, SELFPAY ==
--- NOTE | ~2022-11-09 | MM_ITS ---
EXAMINATION: MM SCREENING DIGITAL BREAST TOMOSYNTHESIS, BILATERAL CLINICAL INFORMATION: Screening. Asymptomatic. The lifetime risk of breast cancer based on the Tyrer-Cuzick Model is 4.8%. COMPARISON: Mammography: November 13, 2021 and studies dating back to December 06, 2013 TECHNIQUE: Digital breast tomosynthesis is performed in both the craniocaudal and mediolateral oblique views along with computer-aided detection (CAD). Synthesized 2D images are generated from the tomosynthesis. FINDINGS: The breasts are almost entirely fatty (ACR BI-RADS breast composition Category a). There are no significant masses, abnormal calcifications, or other abnormalities. MM/MM tomosynthesis screening BI IMPRESSION: No significant changes from prior exam. ASSESSMENT: BI-RADS 1: Negative RECOMMENDATION: Routine annual mammography screening. This patient's information was entered into a reminder system with a target due date for their next mammogram.
== END 2022-11-09 07:45 | disposition home or self-care (01) ==
LOC: HO.MAMMO 07:44
PROVIDERS: PCP Internal Medicine; Visit Provider Internal Medicine
DX: Z12.31 Encounter for screening mammogram for malignant neoplasm of breast (principal)
CPT/HCPCS: 77063; 77067

== ENCOUNTER 2022-12-07 10:42 | Outpatient (REF) | payer OTHER, SELFPAY ==
--- NOTE | ~2022-12-07 | MM_ITS ---
EXAMINATION: BONE DENSITOMETRY CLINICAL INDICATION: Screening. COMPARISON: Previous BD dated 10/14/2017 and baseline BD dated 11/13/2013. TECHNIQUE: Using a [employer] DXA System (software version: 13.1) manufactured by [employer], dual-energy x-ray absorptiometry was performed of the lumbar spine and left hip. The images are of good technical quality. Summary results are attached. FINDINGS: AP SPINE L1-L4: Current: BMD 1.201 g/cm2, Z-score 0.6, T-score 0.2, normal, 5.0% decrease from previous, 4.9% decrease from baseline (<5% change is not significant). Prior: BMD 1.264 g/cm2. Baseline: BMD 1.263 g/cm2. LEFT FEMUR, NECK: Current: BMD 0.926 g/cm2, Z-score -0.1, T-score -0.8, normal. Prior: BMD 1.021 g/cm2. Baseline: BMD 1.062 g/cm2. LEFT FEMUR, TOTAL: Current: BMD 1.085 g/cm2, Z-score 1.0, T-score 0.6, normal, 12.9% decrease from previous, 13.1% decrease from baseline (<5% change is not significant). Prior: BMD 1.246 g/cm2. Baseline: BMD 1.248 g/cm2. IDENTIFIED RISK FACTORS: Early menopause, secondary osteoporosis. HISTORY OF FRACTURE: None listed. MEDICATIONS: Vitamin D. MM/XR DEXA axial skeleton IMPRESSION: 1. DIAGNOSIS: Normal bone density based on the lowest T-score value of -0.8 in the femoral neck applying World Health Organization criteria. 2. 10-YEAR FRACTURE RISK PREDICTION, FRAX: According to the guidelines, FRAX calculation should only be performed on patients in the osteopenia bone density category. Therefore, FRAX was not performed on this patient. 3. Treatment Recommendations: NOF guidelines recommend consideration for treatment in postmenopausal women and men age 50 and older presenting with the following: -A hip or vertebral (clinical or morphometric) fracture. -T-score less than or equal to -2.5 at the femoral neck or spine after appropriate evaluation to exclude secondary causes. -Low bone mass at the hip or spine and a 10-year fracture probability by FRAX of greater than or equal to 3% for hip fracture or greater than or equal to 20% for major osteoporotic fracture based on the [place] adapted WHO algorithm. 4. Other Recommendations: All treatment decisions require clinical judgment and consideration of individual patient factors, including patient preferences, comorbidities, previous drug use, risk factors not captured in the FRAX model (e.g. frailty, falls, vitamin D deficiency, increased bone turnover, interval significant decline in bone density) and possible under or overestimation of fracture risk by FRAX. FUTURE SCAN RECOMMENDATION: People with diagnosed cases of osteoporosis or at high risk for fracture should have regular bone mineral density tests. For patients eligible for Medicare, routine testing is allowed once every 2 years. The testing frequency can be increased to one year for patients who have rapidly progressing disease, those who are receiving or discontinuing medical therapy to restore bone mass, or have additional risk factors.
== END 2022-12-07 10:43 | disposition home or self-care (01) ==
LOC: HO.MAMMO 10:42
PROVIDERS: PCP Internal Medicine; Visit Provider Internal Medicine
DX: Z13.820 Encounter for screening for osteoporosis (principal); Z78.0 Asymptomatic menopausal state
CPT/HCPCS: 77080

== ENCOUNTER 2022-12-20 08:00 | Outpatient (REF) | payer OTHER, SELFPAY ==
[2022-12-20 08:54] LABS: Cholesterol 225 mg/dL; HDL Cholesterol 52 mg/dL; LDL Cholesterol Calculated 160 mg/dl; Triglycerides 69 mg/dL
[2022-12-20 09:12] LABS: Vitamin D 25-OH Total 37.6 ng/mL (>30)
[2022-12-22 13:23] LABS: Calcium (PTHI) 9.7 mg/dL (8.6-10.4); PTHI 59 pg/mL (16-77)
== END 2022-12-20 08:01 | disposition home or self-care (01) ==
LOC: HO.LAB 08:00
PROVIDERS: PCP Internal Medicine; Visit Provider Internal Medicine Endocrinology, Diabetes & Metabolism
DX: E78.5 Hyperlipidemia, unspecified (principal); E55.9 Vitamin D deficiency, unspecified
CPT/HCPCS: 36415; 80061; 82306; 83970

== ENCOUNTER → 2022-12-30 15:25 | Outpatient (BNVA) | payer OTHER, SELFPAY | PROVIDERS: PCP Internal Medicine; Visit Provider Internal Medicine Endocrinology, Diabetes & Metabolism | DX: E11.65 Type 2 diabetes mellitus with hyperglycemia (principal); E78.5 Hyperlipidemia, unspecified; E55.9 Vitamin D deficiency, unspecified; Z79.4 Long term (current) use of insulin; Z79.899 Other long term (current) drug therapy | CPT/HCPCS: 82947; 83036; 99212 ==

== ENCOUNTER 2023-01-11 08:03 | Outpatient (REF) | payer OTHER, SELFPAY ==
[2023-01-11 09:03] LABS: Cholesterol 67 mg/dL; HDL Cholesterol 46 mg/dL; LDL Cholesterol Calculated 14 mg/dl; Triglycerides 38 mg/dL
== END 2023-01-11 08:04 | disposition home or self-care (01) ==
LOC: HO.LAB 08:03
PROVIDERS: PCP Internal Medicine; Visit Provider Internal Medicine Endocrinology, Diabetes & Metabolism
DX: E78.5 Hyperlipidemia, unspecified (principal)
CPT/HCPCS: 36415; 80061

== ENCOUNTER 2023-04-04 09:53 | Outpatient (AMB) | payer OTHER, SELFPAY ==
--- NOTE | 2023-04-04 09:48 | A.OFFVIS_ITS ---
Intake VS Expanded 04/04/23 10:03 Height 5 ft 3 in Weight 184 lb 6.4 oz BMI 32.7 BP 134/74 Blood Pressure Location Rt brachial Blood Pressure Position Sitting Pulse 70 Pulse Source Pulse Oximeter Temp 97.3 F Temperature Source Temporal Artery Scan Pulse Oximetry 99 Oxygen Delivery Method Room Air Body Fat 70.8 Body Fat Percentage 38.4 Free Fat Mass 113.6 Muscle Mass 107.8 Visceral Mass 11.0 Water Mass 80.2 BMR 1,544 Intake Visit Reasons: (OV) LSG 10/31/2018 Allergies pollen Allergy (Unknown, Uncoded 12/30/22 15:37) shortness of breath Pt states no food/medication a Allergy (Unknown, Uncoded 12/30/22 15:37) Anaphylaxis Medication List - Last Reconciled 04/04/23 by Cathy Palacios PA-C albuterol sulfate 90 mcg/actuation 2 puffs PO Q4-6H PRN alcohol swabs (Alcohol Prep Pads) 1 pad topical QID alirocumab (Praluent Pen) 150 mg subcut Q14D amlodipine 10 mg PO DAILY blood pressure test kit-large As directed blood sugar diagnostic As directed blood sugar diagnostic (FreeStyle Lite Strips) As directed blood-glucose meter (FreeStyle Lite Meter kit) As directed blood-glucose meter (FreeStyle Lite Meter kit) As directed- checks 4 X/day calcium carbonate-vitamin D3 600 mg-20 mcg (800 unit) 1 tab PO BID chlorthalidone 25 mg PO DAILY cholecalciferol (vitamin D3) 50 mcg PO DAILY dulaglutide (Trulicity) 1 mg (0.3333 mL) subcut QWEEK enalapril maleate 20 mg PO DAILY ezetimibe 10 mg PO QAM famotidine (Pepcid) 40 mg PO DAILY flash glucose scanning reader (FreeStyle Marcos 2 Bruning) As directed flash glucose sensor (FreeStyle Marcos 2 Sensor kit) As directed change every 14 days fluticasone propionate 110 mcg/actuation 1 puff inhalation BID insulin glargine (Lantus Solostar U-100 Insulin) 10 units (0.1 mL) subcut QPM lancets (TRUEplus Lancets) As directed loratadine 10 mg PO DAILY metformin 1,000 mg PO BID 30 days metoprolol succinate ER 50 mg PO DAILY ujmjtexe-qnx-JF-lycopen-lutein 0.4 mg-300 mcg- 250 mcg (Complete Multivitamin Adult 50 Plus) 1 tab PO DAILY nebivolol 5 mg PO DAILY oxycodone-acetaminophen 5-325 mg 1 tab PO Q8H PRN pantoprazole 1 tab PO QAM pen needle, diabetic (BD Ultra-Fine Tracie Pen Needle) injects once a day phenazopyridine (Pyridium) 100 mg PO TID PRN 6 doses pregabalin 75 mg PO BEDTIME rosuvastatin 40 mg PO BEDTIME HPI HPI Comments History of Present Illness Details Pt is 4 years and 5 months s/p LSG. Her weight has been stable since last appt in January 2021. Pt states for last few months has been having increasing nausea and stomach acid. States will have emesis with nausea - twice this week. Also states diarrhea no constipation. Wakes at 5am and goes to bed at 11 pm 5am - 1 cup and 7am second cup and a third cup - black with some sugar 10am - 1 egg with peppers and onions, sometimes 1 slice toast. half apple. or small pancake 4pm - 2 oz rice, 3 oz beans and 1 oz pork and 6 oz salad. Takes 1 hour to complete. water 9pm - If she is hungry will have oatmeal or marquis with whole milk 6 pm - Or has potato chips ocassional No night eating. Exercise - walks a little only due ot leg problems. Post op complications: none SILVIA: resolved DM: - taking meds HTN: taking meds Hyperlipidemia: taking meds GERD: 0-5 scale 0 = no symptoms 1 = symptoms noticeable but not bothersome 2 =symptoms bothersome but not daily 3 = symptoms bothersome and daily 4 = symptoms affect daily activities 5 = symptoms are incapacitating, unable to do daily activities How bad is the heartburn ? Heartburn while lying down ? Heartburn when standing up ? Heartburn after meals ? Does heartburn change your diet ? Does heartburn wake you up from sleep ? Do you have difficulty swallowing ? Do you have pain with swallowing -? If you take medicine for your reflux, does this affect your daily life ? Satisfaction with present condition - satisfied ___ Not satisfied ___ PFSH Medical History (Updated 04/04/23 @ 10:40 by Cathy Palacios PA-C) Diabetes type 2, controlled Diabetic polyneuropathy associated with type 2 diabetes mellitus Dyslipidemia History of diverticulosis Hx of diverticulitis of colon Hypertension Uncontrolled type 2 diabetes mellitus Vitamin D deficiency Surgical History History of carpal tunnel release History of sleeve gastrectomy History of surgery on lower extremity Hx of cholecystectomy Hx of colonoscopy Hx of excision of mass Hx of foot surgery Hx of tubal ligation Family History Father Hypertension Mother No problems noted. Son No problems noted. Son No problems noted. Daughter Hypertension Asthma Obesity Muscle spasm Acute depression Sister No problems noted. Sister No problems noted. Brother No problems noted. Brother No problems noted. Brother No problems noted. Brother No problems noted. Brother No problems noted. Social History Household Members: Family Housing: Apartment Do you presently have visiting nurse or other home services: Yes Alcohol intake: never Patient Tobacco Use Status: Never used Tobacco Advance Directives Date on File: 09/17/21 service: No Current occupational status: unemployed Physical Exam Vital Signs: Last Vital Signs Temp 97.3 F 04/04/23 10:03 Pulse 70 04/04/23 10:03 BP 134/74 04/04/23 10:03 Pulse Ox 99 04/04/23 10:03 Oxygen Delivery Method Room Air 04/04/23 10:03 BMI result Body Mass Index 32.7 GI Inspection: Yes normal to inspection and Yes scar (all well healed) Palpation (GI): Soft to palpation, nontender, no guarding, no hernias and no masses Assessment & Plan Assessment & Plan (1) Obesity: Code(s): E66.9 - Obesity, unspecified Qualifiers: Obesity type: due to excess calories Obesity classification: adult class 1 (BMI 30 - 34.9) Serious obesity comorbidity presence: with serious comorbidity Plan: Pt is 4+ years post op sleeve gastrectomy, not seen for over 2 years. She has had increasing symptoms of nausea, GERD and ocassional emesis after eating.Takes pantoprazoel daily and pepci prn. We discussed how I beleive that all of these symptoms are due other poor diet and having cofee all day on an empty stomach, eating too much at her dinner meal. I believe that if she can eat healthfully and loose at least another 25 lbs she will feel much better and be able to decrease her DM, HTN and HLD meds. New meal plan: No coffee on an empty stomach 6am - 30 gram protein shake - over 1 hour 7am - 1 c coffee with milk - no sugar 12pm - shake or yogurt 4pm - meal of no more than 8 oz's -over no longer than 30 minutes 8pm - yogurt or shake Have 2 shake, 1 yogurt and 1 meal per day. Exercise - [employer] sitting videos for 30 minutes at least 4 d/week. Post op chemistries ordered. Next appt 1 month - will assess these GI symptoms at that time. Patient is obese and is not considered stable at this time. I spent 35 minutes in total with patient reviewing/updating records, examining the patient and counseling the patient on weight management as detailed above. (2) Uncontrolled type 2 diabetes mellitus: Code(s): E11.65 - Type 2 diabetes mellitus with hyperglycemia (3) Chronic GERD: Code(s): K21.9 - Gastro-esophageal reflux disease without esophagitis (4) Nausea: Code(s): R11.0 - Nausea (5) Dyslipidemia: Code(s): E78.5 - Hyperlipidemia, unspecified Orders: Orders Vitamin B12 and Folate Today E11.65 - Type 2 diabetes mellitus with hyperglycemia, E66.9 - Obesity, unspecified, E78.5 - Hyperlipidemia, unspecified Comprehensive Met. Panel Today E11.65 - Type 2 diabetes mellitus with hyper glycemia, E66.9 - Obesity, unspecified, E78.5 - Hyperlipidemia, unspecified C Reactive Protein Today E11.65 - Type 2 diabetes mellitus with hyperglycemia, E66.9 - Obesity, unspecified, E78.5 - Hyperlipidemia, unspecified Ferritin Today E11.65 - Type 2 diabetes mellitus with hyperglycemia, E66.9 - Obesity, unspecified, E78.5 - Hyperlipidemia, unspecified Hemoglobin A1c Today E11.65 - Type 2 diabetes mellitus with hyperglycemia, E66.9 - Obesity, unspecified, E78.5 - Hyperlipidemia, unspecified Insulin Today E11.65 - Type 2 diabetes mellitus with hyperglycemia, E66.9 - Obesity, unspecified, E78.5 - Hyperlipidemia, unspecified IRON PROFILE Today - Type 2 diabetes mellitus with hyperglycemia, E66.9 - Obesity, unspecified, E78.5 - Hyperlipidemia, unspecified Lipid Panel Today - Type 2 diabetes mellitus with hyperglycemia, E66.9 - Obesity, unspecified, E78.5 - Hyperlipidemia, unspecified PTHI Today - Type 2 diabetes mellitus with hyperglycemia, E66.9 - Obesity, unspecified, E78.5 - Hyperlipidemia, unspecified TSH reflex Free T4 Today - Type 2 diabetes mellitus with hyperglycemia, E66.9 - Obesity, unspecified, E78.5 - Hyperlipidemia, unspecified Vitamin A Today - Type 2 diabetes mellitus with hyperglycemia, E66.9 - Obesity, unspecified, E78.5 - Hyperlipidemia, unspecified Vitamin B1 Today - Type 2 diabetes mellitus with hyperglycemia, E66.9 - Obesity, unspecified, E78.5 - Hyperlipidemia, unspecified Vitamin D 25-OH Total Today - Type 2 diabetes mellitus with hyperglycemia, E66.9 - Obesity, unspecified, E78.5 - Hyperlipidemia, unspecified Zinc Today - Type 2 diabetes mellitus with hyperglycemia, E66.9 - Obesity, unspecified, E78.5 - Hyperlipidemia, unspecified Referrals Behavioral Health Referral - Type 2 diabetes mellitus with hyperglycemia, E66.9 - Obesity, unspecified, E78.5 - Hyperlipidemia, unspecified Nutrition/Dietitian Referral - Type 2 diabetes mellitus with hyperglycemia, E66.9 - Obesity, unspecified, E78.5 - Hyperlipidemia, unspecified Coding Level of Care Code [facility] Pt Level 4 (96675) Diagnoses Obesity E66.9 Obesity type: due to excess calories Obesity classification: adult class 1 (BMI 30 - 34.9) Serious obesity comorbidity presence: with serious comorbidity Uncontrolled type 2 diabetes mellitus Chronic GERD K21.9 Nausea R11.0 Dyslipidemia E78.5
[2023-04-04 10:03] VITALS: BP 134/74; PULSE 70; TEMP 36.3; O2SAT 99; BMI 32.7
== END 2023-04-04 10:48 | disposition home or self-care (01) ==
PROVIDERS: PCP Internal Medicine; Visit Provider Physician Assistant
DX: E66.9 Obesity, unspecified (principal); Z68.32 Body mass index [BMI] 32.0-32.9, adult; Z98.84 Bariatric surgery status; Z90.3 Acquired absence of stomach [part of]; E11.65 Type 2 diabetes mellitus with hyperglycemia; K21.9 Gastro-esophageal reflux disease without esophagitis; E78.5 Hyperlipidemia, unspecified; R11.0 Nausea
CPT/HCPCS: 99214

== ENCOUNTER → 2023-04-04 09:53 | Outpatient (BNVA) | payer OTHER, SELFPAY | PROVIDERS: PCP Internal Medicine; Visit Provider Physician Assistant | DX: E66.9 Obesity, unspecified (principal); Z68.32 Body mass index [BMI] 32.0-32.9, adult; E11.65 Type 2 diabetes mellitus with hyperglycemia; K21.9 Gastro-esophageal reflux disease without esophagitis; R11.0 Nausea; E78.5 Hyperlipidemia, unspecified | CPT/HCPCS: 99212 ==

== ENCOUNTER 2023-04-05 10:25 | Outpatient (AMB) | payer OTHER, SELFPAY ==
--- NOTE | 2023-04-05 10:31 | A.OFFVIS_ITS ---
Intake Vital Signs 04/05/23 10:32 Height 5 ft 3 in Weight 189 lb 2.506 oz BMI 33.5 BP 138/70 Blood Pressure Location Rt brachial Position Sitting Pulse 72 Pulse Source Pulse Oximeter Intake Visit Reasons: f/u Type 2 DM and hyperlipidemia Intake Note: Patient present today to follow up on Type 2 Diabetes Mellitus and Hyperlipidemia. Patient receives DME supplies through: Pharmacy Last Diabetic Eye exam: Over 2 years, due for exam. Requesting Referred. Last Podiatry Visit: Does not see a Net Web Application Developer Random Glucose: 218 mg/dl HgA1C: 7.4% Radiotelephone Technical Operator Required: Yes Radiotelephone Technical Operator Language: Installer Metal Flooring Name: Sana, Medical Staff Information Interpreted: non-clinical & clinical Accompanied by: Self / Same As Patient Allergies pollen Allergy (Unknown, Uncoded 04/05/23 10:40) shortness of breath Pt states no food/medication a Allergy (Unknown, Uncoded 04/05/23 10:40) Anaphylaxis HPI HPI Comments History of Present Illness Details 67-year-old female, today for follow-up, for diabetes and hyperlipidemia management. There is also history of vitamin-D deficiency and secondary hyperparathyroid She is feeling well, she has no complaints. Marcos download shows she is wearing the sensor 83% of the time. Average glucose is 174 with G mi of 7.5%. Glucose variability is 24.4%. 60% range with 40% hyperglycemia and no hypoglycemia hypoglycemia occurs primarily after breakfast and after dinner She had Bariatric surgery 10/31/18. She has DM type 2 diagnosed 2004. Other past medical history is obstructive sleep apnea, asthma, obesity, hyperlipidemia, hypertension. She is Currently on Trulicity 1.5 mg Qwkly and metformin 1000 mg twice a day. Lantus 10 units No hypoglycemia She was Invokana met which I had to stop due to urinary infections. Complications: no retinopathy, no nephropathy, + neuropathy, no CVA, CAD, PVD. Last ophthalmology evaluation: 2 yrs ago , no retinopathy. She denies nocturia , no polyuria, positive polydipsia, blurred vision, She reports her weight is stable. she reports numbness, tingling in her toes. S he denies dysuria. She has hyperlipidemia with elevated LDL on Rosuvastatin and Zetia and Praulent 150 mg Q2 wkly . Claims compliance 10/14/17 DEXA scan AP SPINE L1-L4: Current: BMD 1.264 g/cm2, Z-score 0.7, T-score 0.7, normal, 0.1% increase from baseline (<5% change is not significant). Baseline: BMD 1.263 g/cm2. LEFT FEMUR, NECK: Current: BMD 1.021 g/cm2, Z-score 0.4, T-score -0.1, normal. Baseline: BMD 1.062 g/cm2. LEFT FEMUR, TOTAL: Current: BMD 1.246 g/cm2, Z-score 2.0, T-score 1.9, normal, 0.2% decrease from baseline (<5% change is not significant). Baseline: BMD 1.248 g/cm2. LEFT FOREARM RADIUS 33%: BMD 0.890 g/cm2, Z-score 1.1, T-score 0.2, normal. Laboratory Tests 05/24/19 08/28/19 04/14/20 Unknown 06:44 09:05 Hgb Hct Sodium 141 Potassium 3.3 Creatinine 0.73 Est GFR (Non-Af Am er) > 60 POC Glucose 153 H Random Glucose 109 Estimat Average Gl ucose Hemoglobin A1c Fructosamine Calcium AST 16 ALT 17 Albumin 4.3 Triglycerides 109 Cholesterol 213 D LDL Cholesterol Di rect LDL Cholesterol, C alc 137 HDL Cholesterol 55 Vitamin B1 Vitamin B12 25-OH Vitamin D To neno 27.8 TSH 3rd Generation 1.99 PTH Intact Calcium/Creat 24 H r 116 04/14/20 04/14/20 04/14/20 09:05 09:05 09:05 Hgb 14.6 Hct 45.3 Sodium Potassium Creatinine Est GFR (Non-Af Am er) POC Glucose Random Glucose Estimat Average Gl ucose 128 Hemoglobin A1c 6.1 Fructosamine Calcium AST ALT Albumin Triglycerides Cholesterol LDL Cholesterol Di rect LDL Cholesterol, C alc HDL Cholesterol Vitamin B1 Vitamin B12 512 25-OH Vitamin D To neno TSH 3rd Generation PTH Intact Calcium/Creat 24 H r 04/14/20 04/14/20 09:05 09:05 Hgb Hct Sodium Potassium Creatinine Est GFR (Non-Af Am er) POC Glucose Random Glucose Estimat Average Gl ucose Hemoglobin A1c Fructosamine 272 Calcium 9.7 AST ALT Albumin Triglycerides Cholesterol LDL Cholesterol Di rect 128 H LDL Cholesterol, C alc HDL Cholesterol Vitamin B1 42 H Vitamin B12 25-OH Vitamin D To neno TSH 3rd Generation PTH Intact 55 Calcium/Creat 24 H r [facility] Medical History (Updated 04/04/23 @ 10:40 by Cathy Palacios PA-C) Diabetes type 2, controlled Diabetic polyneuropathy associated with type 2 diabetes mellitus Dyslipidemia History of diverticulosis Hx of diverticulitis of colon Hypertension Uncontrolled type 2 diabetes mellitus Vitamin D deficiency Surgical History History of carpal tunnel release History of sleeve gastrectomy History of surgery on lower extremity Hx of cholecystectomy Hx of colonoscopy Hx of excision of mass Hx of foot surgery Hx of tubal ligation Family History Father Hypertension Mother No problems noted. Son No problems noted. Son No problems noted. Daughter Hypertension Asthma Obesity Muscle spasm Acute depression Sister No problems noted. Sister No problems noted. Brother No problems noted. Brother No problems noted. Brother No problems noted. Brother No problems noted. Brother No problems noted. Social History Household Members: Family Housing: Apartment Do you presently have visiting nurse or other home services: Yes Alcohol intake: never Patient Tobacco Use Status: Never used Tobacco Advance Directives Date on File: 09/17/21 service: No Current occupational status: unemployed Physical Exam Vital Signs: Last Vital Signs Pulse 72 04/05/23 10:32 BP 138/70 04/05/23 10:32 BMI result Body Mass Index 33.5 Absence of Cushingoid features. Absence of acromegalic features. Neck exam reveals nl size thyroid about 15 gms. No thyroid nodules palpable. No carotid bruits present. Lungs CTA. Heart S1 S2, Reg R/R. No M/R/ G. Skin exam reveals absence of vitiligo or acanthosis nigricans. Abdominal exam reveals Soft NT/ND with NA BS. No organomegaly present. Neck Other: . Extrem Other: Visual exam of foot performed. No ulcerations or open lesions. No onchomycosis, no callouses.Pulses 2 + distally Sensation intact to monofilament exam. Vibratory sensation sensed is intact with 128 Hz tuning fork Results AMB Hemoglobin A1c AMB Hemoglobin A1c 7.4 % Last Edit by ELSY Nguyen on 04/05/23 10:56 Results Reviewed Results Reviewed: 04/05/23 10:46 Glucose, Whole Blood Routine Laboratory Last Values Glucose (Clinic) 218 mg/dL (60-115) H 04/05/23 10:46 Assessment & Plan Assessment & Plan (1) Uncontrolled type 2 diabetes mellitus: Code(s): E11.65 - Type 2 diabetes mellitus with hyperglycemia Plan: This is a 67-year-old female with a history of type 2 diabetes being treated with Trulicity and metformin amd basal insulin with fair but improving glycemic control and known microvascular complications namely neuropathy and microalbuminuria. Plan is have pt see agricultural extension educator in next wks start prandial insulin before breakfast and dinner 4 units for POC 100-150 , 6 units for POC 151-200 and 8 units for POC >200 . (2) Dyslipidemia: Code(s): E78.5 - Hyperlipidemia, unspecified Plan: Currently above goal on rosuvastatin maximal doses and Zetia as well as Praulent . 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 At goal on current regimen (3) Vitamin D deficiency: Code(s): E55.9 - Vitamin D deficiency, unspecified Plan: Secondary hyperparathyroidism now resolved on vitamin-D replacement Orders: Orders AMB Hemoglobin A1c Today E11.65 - Type 2 diabetes mellitus with hyperglycemia Coding Level of Care Code Est Pt Level 4 (96848) Diagnoses Uncontrolled type 2 diabetes mellitus E11.65 Dyslipidemia E78.5 Vitamin D deficiency E55.9
[2023-04-05 10:32] VITALS: BP 138/70; PULSE 72; BMI 33.5
[2023-04-05 10:49] LABS: Glucose, Whole Blood 218 mg/dL (60-115)
== END 2023-04-05 11:08 | disposition home or self-care (01) ==
PROVIDERS: PCP Internal Medicine; Visit Provider Internal Medicine Endocrinology, Diabetes & Metabolism
DX: E11.65 Type 2 diabetes mellitus with hyperglycemia (principal); E11.69 Type 2 diabetes mellitus with other specified complication; E78.5 Hyperlipidemia, unspecified; E55.9 Vitamin D deficiency, unspecified
CPT/HCPCS: 99214

== ENCOUNTER → 2023-04-05 10:25 | Outpatient (BNVA) | payer OTHER, SELFPAY | PROVIDERS: Visit Provider Internal Medicine Endocrinology, Diabetes & Metabolism | DX: E11.65 Type 2 diabetes mellitus with hyperglycemia (principal); E78.5 Hyperlipidemia, unspecified; E55.9 Vitamin D deficiency, unspecified | CPT/HCPCS: 82947; 83036; 99212 ==

== ENCOUNTER 2023-08-09 09:17 | Outpatient (AMB) | payer OTHER, SELFPAY ==
--- NOTE | 2023-08-09 09:27 | A.OFFVIS_ITS ---
Intake Vital Signs 08/09/23 09:33 Height 5 ft 3 in Weight 191 lb 9.307 oz BMI 33.9 BP 160/80 H Blood Pressure Location Lt brachial Position Sitting Pulse 65 Pulse Source Pulse Oximeter Intake Visit Reasons: f/u Type 2 DM/ hyperlipidemia-CONFIRMED Intake Note: Patient present today to follow up on Type 2 Diabetes Mellitus and Hyperlipidemia. Patient receives DME supplies through: Pharmacy Last Diabetic Eye exam: 06/2023 Last Podiatry Visit: None Random Glucose: 144 mg/dl HgA1C: 6.8% Inventory Control Coordinator Required: Yes Inventory Control Coordinator Language: Lease Out Man Name: Maisha medical staff Information Interpreted: non-clinical & clinical Accompanied by: Daughter Allergies pollen Allergy (Unknown, Uncoded 04/05/23 10:40) shortness of breath Pt states no food/medication a Allergy (Unknown, Uncoded 04/05/23 10:40) Anaphylaxis HPI HPI Comments History of Present Illness Details 67-year-old female, today for follow-up, for diabetes and hy perlipidemia management. There is also history of vitamin-D deficiency and secondary hyperparathyroid She is feeling well, she has no complaints. Marcos download from 07/19/2023- 07/20/2023 shows she is wearing the sensor 62% of the time. Average glucose is 151 with G mi of 6.9 %. Glucose variability is 27.5%. 74% range with 26% hyperglycemia and no hypoglycemia She had Bariatric surgery 10/31/18. She has DM type 2 diagnosed 2004. Other past medical history is obstructive sleep apnea, asthma, obesity, hyperlipidemia, hypertension. She is Currently on Trulicity 1.5 mg Qwkly and metformin 1000 mg twice a day. Lantus 10 units No hypoglycemia She was Invokana met which I had to stop due to urinary infections. Complications: no retinopathy, no nephropathy, + neuropathy, no CVA, CAD, PVD. Last ophthalmology evaluation: Jun 2023 , no retinopathy. She denies nocturia , no polyuria, positive polydipsia, blurred vision, She reports her weight is stable. she reports numbness, tingling in her toes. She denies dysuria. She has hyperlipidemia with elevated LDL on Rosuvastatin and Zetia and Praulent 150 mg Q2 wkly . Claims compliance 10/14/17 DEXA scan AP SPINE L1-L4: Current: BMD 1.264 g/cm2, Z-score 0.7, T-score 0.7, normal, 0.1% increase from baseline (<5% change is not significant). Baseline: BMD 1.263 g/cm2. LEFT FEMUR, NECK: Current: BMD 1.021 g/cm2, Z-score 0.4, T-score -0.1, normal. Baseline: BMD 1.062 g/cm2. LEFT FEMUR, TOTAL: Current: BMD 1.246 g/cm2, Z-score 2.0, T-score 1.9, normal, 0.2% decrease from baseline (<5% change is not significant). Baseline: BMD 1.248 g/cm2. LEFT FOREARM RADIUS 33%: BMD 0.890 g/cm2, Z-score 1.1, T-score 0.2, normal. Laboratory Tests 05/24/19 08/28/19 04/14/20 Unknown 06:44 09:05 Hgb Hct Sodium 141 Potassium 3.3 Creatinine 0.73 Est GFR (Non-Af Am er) > 60 POC Glucose 153 H Random Glucose 109 Estimat Average Gl ucose Hemoglobin A1c Fructosamine Calcium AST 16 ALT 17 Albumin 4.3 Triglycerides 109 Cholesterol 213 D LDL Cholesterol Di rect LDL Cholesterol, C alc 137 HDL Cholesterol 55 Vitamin B1 Vitamin B12 25-OH Vitamin D To neno 27.8 TSH 3rd Generation 1.99 PTH Intact Calcium/Creat 24 H r 116 04/14/20 04/14/20 04/14/20 09:05 09:05 09:05 Hgb 14.6 Hct 45.3 Sodium Potassium Creatinine Est GFR (Non-Af Am er) POC Glucose Random Glucose Estimat Average Gl ucose 128 Hemoglobin A1c 6.1 Fructosamine Calcium AST ALT Albumin Triglycerides Cholesterol LDL Cholesterol Di rect LDL Cholesterol, C alc HDL Cholesterol Vitamin B1 Vitamin B12 512 25-OH Vitamin D To neno TSH 3rd Generation PTH Intact Calcium/Creat 24 H r 04/14/20 04/14/20 09:05 09:05 Hgb Hct Sodium Potassium Creatinine Est GFR (Non-Af Am er) POC Glucose Random Glucose Estimat Average Gl ucose Hemoglobin A1c Fructosamine 272 Calcium 9.7 AST ALT Albumin Triglycerides Cholesterol LDL Cholesterol Di rect 128 H LDL Cholesterol, C alc HDL Cholesterol Vitamin B1 42 H Vitamin B12 25-OH Vitamin D To neno TSH 3rd Generation PTH Intact 55 Calcium/Creat 24 H r [facility] Medical History (Updated 04/04/23 @ 10:40 by Cathy Palacios PA-C) Uncontrolled type 2 diabetes mellitus Diabetic polyneuropathy associated with type 2 diabetes mellitus Vitamin D deficiency Hypertension Diabetes type 2, controlled History of diverticulosis Hx of diverticulitis of colon Dyslipidemia Surgical History History of surgery on lower extremity History of sleeve gastrectomy Hx of excision of mass Hx of colonoscopy Hx of cholecystectomy History of carpal tunnel release Hx of tubal ligation Hx of foot surgery Family History Father Hypertension Mother No problems noted. Son No problems noted. Son No problems noted. Daughter Hypertension Asthma Obesity Muscle spasm Acute depression Sister No problems noted. Sister No problems noted. Brother No problems noted. Brother No problems noted. Brother No problems noted. Brother No problems noted. Brother No problems noted. Social History Household Members: Family Housing: Apartment Do you presently have visiting nurse or other home services: Yes Alcohol intake: never Patient Tobacco Use Status: Never used Tobacco Advance Directives Date on File: 09/17/21 service: No Current occupational status: unemployed Physical Exam Vital Signs: Last Vital Signs Pulse 65 08/09/23 09:33 BP 160/80 H 08/09/23 09:33 BMI result Body Mass Index 33.9 Absence of Cushingoid features. Absence of acromegalic features. Neck exam r eveals nl size thyroid about 15 gms. No thyroid nodules palpable. No carotid bruits present. Lungs CTA. Heart S1 S2, Reg R/R. No M/R/ G. Skin exam reveals absence of vitiligo or acanthosis nigricans. Abdominal exam reveals Soft NT/ND with NA BS. No organomegaly present. Neck Other: . Extrem Other: Visual exam of foot performed. No ulcerations or open lesions. No onchomycosis, no callouses.Pulses 2 + distally Sensation intact to monofilament exam. Vibratory sensation sensed is intact with 128 Hz tuning fork Results AMB Hemoglobin A1c AMB Hemoglobin A1c 6.8 % Last Edit by Angela Olson on 08/09/23 09:48 Results Reviewed Results Reviewed: Laboratory Last Values Glucose (Clinic) 144 mg/dL (60-115) H 08/09/23 09:38 Assessment & Plan Assessment & Plan (1) Uncontrolled type 2 diabetes mellitus: Code(s): E11.65 - Type 2 diabetes mellitus with hyperglycemia Plan: This is a 68-year-old female with a history of type 2 diabetes being treated with Trulicity and metformin amd basal insulin with excellent improved glycemic control and known microvascular complications namely neuropathy and microalbuminuria. Plan is (2) Dyslipidemia: Code(s): E78.5 - Hyperlipidemia, unspecified Plan: Currently above goal on rosuvastatin maximal doses and Zetia as well as Praulent . 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 At goal on current regimen (3) Vitamin D deficiency: Code(s): E55.9 - Vitamin D deficiency, unspecified Plan: Secondary hyperparathyroidism now resolved on vitamin-D replacement Orders: Orders AMB Hemoglobin A1c Today E11.65 - Type 2 diabetes mellitus with hyperglycemia Coding Level of Care Code Est Pt Level 4 (15885) Diagnoses Uncontrolled type 2 diabetes mellitus E11.65 Dyslipidemia E78.5 Vitamin D deficiency E55.9
[2023-08-09 09:33] VITALS: BP 160/80; PULSE 65; BMI 33.9
[2023-08-09 09:42] LABS: Glucose, Whole Blood 144 mg/dL (60-115)
== END 2023-08-09 09:52 | disposition home or self-care (01) ==
PROVIDERS: PCP Internal Medicine; Visit Provider Internal Medicine Endocrinology, Diabetes & Metabolism
DX: E11.65 Type 2 diabetes mellitus with hyperglycemia (principal); E78.5 Hyperlipidemia, unspecified; E55.9 Vitamin D deficiency, unspecified
CPT/HCPCS: 99214

== ENCOUNTER → 2023-08-09 09:17 | Outpatient (BNVA) | payer OTHER, SELFPAY | PROVIDERS: PCP Internal Medicine; Visit Provider Internal Medicine Endocrinology, Diabetes & Metabolism | DX: E11.65 Type 2 diabetes mellitus with hyperglycemia (principal); E11.42 Type 2 diabetes mellitus with diabetic polyneuropathy; E78.5 Hyperlipidemia, unspecified; E55.9 Vitamin D deficiency, unspecified | CPT/HCPCS: 82947; 83036; 99212 ==

== ENCOUNTER → 2023-08-31 19:26 | Outpatient (REF) | payer OTHER, SELFPAY | LOC: HO.SL 19:26 | PROVIDERS: PCP Internal Medicine; Visit Provider Internal Medicine | DX: Z13.89 Encounter for screening for other disorder (principal) ==

== ENCOUNTER 2023-09-22 09:00 | Outpatient (RCR) | payer OTHER, SELFPAY | END 2023-09-22 13:22 | disposition home or self-care (01) | LOC: HO.PT 09:00 | PROVIDERS: PCP Internal Medicine; Visit Provider Orthopaedic Surgery | DX: M76.61 Achilles tendinitis, right leg (principal) | CPT/HCPCS: 97110; 97112; 97116; 97140; 97161 ==

== ENCOUNTER 2023-10-20 11:59 | Outpatient (REF) | payer OTHER, SELFPAY ==
[2023-10-20 13:38] LABS: Anion Gap 13 (12-20); Blood Urea Nitrogen 10 mg/dL (9-16); Calcium 9.7 mg/dL (8.4-10.2); Carbon Dioxide 31 mmol/L (22-29); Chloride 103 mmol/L (96-108); Estimated Glomerular Filt Rate > 60; Glucose Random 146 mg/dL (60-115); Potassium 3.7 mmol/L (3.3-5.1); Sodium 143 mmol/L (135-145)
== END 2023-10-20 12:00 | disposition home or self-care (01) ==
LOC: HO.HHCL 11:59
PROVIDERS: Visit Provider Internal Medicine
DX: E11.65 Type 2 diabetes mellitus with hyperglycemia (principal)
CPT/HCPCS: 36415; 80048

== ENCOUNTER 2023-10-21 15:06 | Outpatient (REF) | payer OTHER, SELFPAY ==
[2023-10-21 16:05] LABS: Leukocytes Stool Qualitative NEGATIVE (NEGATIVE)
[2023-10-22 09:18] LABS: Adenovirus F 40/41 Not Detected (Not Detect.); Astrovirus Not Detected (Not Detect.); Campylobacter Not Detected (Not Detect.); Cryptosporidium Not Detected (Not Detect.); Cyclospora cayetanensis Not Detected (Not Detect.); E. coli EAEC Not Detected (Not Detect.); E. coli EPEC Not Detected (Not Detect.); E. coli ETEC Not Detected (Not Detect.); E. coli STEC Not Detected (Not Detect.); Entamoeba histolytica Not Detected (Not Detect.); Giardia lamblia Not Detected (Not Detect.); Norovirus GI/GII Not Detected (Not Detect.); Plesiomonas shigelloides Not Detected (Not Detect.); Rotavirus A Not Detected (Not Detect.); Salmonella Not Detected (Not Detect.); Sapovirus Not Detected (Not Detect.); Shigella sp./EIEC Not Detected (Not Detect.); Vibrio Not Detected (Not Detect.); Vibrio Cholerae Not Detected (Not Detect.); Yersinia enterocolitica Not Detected (Not Detect.)
== END 2023-10-21 15:07 | disposition home or self-care (01) ==
LOC: HO.HHCLNP 15:06
PROVIDERS: Visit Provider Internal Medicine
DX: K52.9 Noninfective gastroenteritis and colitis, unspecified (principal)
CPT/HCPCS: 87507; 89055

== ENCOUNTER 2024-01-17 08:57 | Outpatient (REF) | payer OTHER, SELFPAY | END 2024-01-17 08:58 | disposition home or self-care (01) | LOC: HO.MAMMO 08:57 | PROVIDERS: PCP Internal Medicine; Visit Provider Internal Medicine | DX: Z12.31 Encounter for screening mammogram for malignant neoplasm of breast (principal) | CPT/HCPCS: 77063; 77067 ==

== ENCOUNTER → 2024-01-17 09:30 | Outpatient (BNV) | payer OTHER, SELFPAY | PROVIDERS: PCP Internal Medicine; Visit Provider Radiology Diagnostic Radiology | DX: Z12.31 Encounter for screening mammogram for malignant neoplasm of breast (principal) | CPT/HCPCS: 77063; 77067 ==

== ENCOUNTER 2024-02-21 10:29 | Outpatient (REF) | payer OTHER, SELFPAY ==
--- NOTE | ~2024-02-21 | XR_ITS ---
EXAMINATION: XR FOOT, RIGHT CLINICAL INFORMATION: Order states pain of right heel. COMPARISON: 10/29/2021 TECHNIQUE: AP, lateral, and oblique views of the right foot. FINDINGS: Small plantar calcaneal spur redemonstrated. Increased ossification along the superior posterior aspect of the calcaneus. The bones are diffusely demineralized. Moderate degenerative changes at the tarsometatarsal joints. Mild degenerative changes at the first metatarsophalangeal joint. Redemonstration of amorphous calcification/ossification along the medial aspect of the fourth metatarsophalangeal joint. XR/XR foot RT min 3V IMPRESSION: 1. Small plantar calcaneal spur redemonstrated. Increased ossification along the superior posterior aspect of the calcaneus. 2. Moderate degenerative changes at the tarsometatarsal joints. 3. Redemonstration of amorphous calcification/ossification along the medial aspect of the fourth metatarsophalangeal joint.
== END 2024-02-21 10:30 | disposition home or self-care (01) ==
LOC: HO.HHCX 10:29
PROVIDERS: Visit Provider Internal Medicine
DX: M79.671 Pain in right foot (principal)
CPT/HCPCS: 73630

== ENCOUNTER 2024-04-20 10:49 | Outpatient (AMB) | payer OTHER, SELFPAY ==
--- NOTE | 2024-04-20 10:55 | MHC.OFFVIS ---
Vital Signs 04/20/24 10:56 Height 5 ft 3 in Weight 188 lb BMI 33.3 Blood Pressure Location Lt brachial Position Sitting Intake Visit Reasons: Epigastric Pains Intake Note: Patient new consult for Epigastric pain Patient cc: abdominalpain/bloating, acid reflex with burning sensation,constipation, dizziness and fatigue. Transformer Assembly Supervisor Required: Yes Transformer Assembly Supervisor Name: [facility] [place] [facility] Accompanied by: Self / Same As Patient Allergies pollen Allergy (Unknown, Uncoded 04/05/23 10:40) shortness of breath Pt states no food/medication a Allergy (Unknown, Uncoded 04/05/23 10:40) Anaphylaxis HPI HPI Epigastric Pains: Details: 68 years old female with past medical history of diabetes, pyelonephritis, kidney abscess, elevated LFTs, diabetic neuropathy, obesity, dyslipidemia, history of gastric sleeve is here for initial consultation. Patient was sent to us by her PCP. Recent symptoms acid reflux, dyspepsia and occasional dysphagia getting worse. Patient is taking pantoprazole in the morning, used to take famotidine, however it was not helping. Patient feels like pantoprazole is working sometimes bought for the most part she still has epigastric pain postprandially almost no med what she eats. Patient also reports that she is constipated, when going to the bathroom she does not feel like she empties completely. Patient denies any nausea or vomiting. Postprandial abdominal bloating occasional dizziness. Patient denies weakness, presyncope or syncope. Patient denies any shortness of breath or chest pain [facility] Medical History (Updated 04/04/23 @ 10:40 by Cathy Palacios PA-C) Uncontrolled type 2 diabetes mellitus Diabetic polyneuropathy associated with type 2 diabetes mellitus Vitamin D deficiency Hypertension Diabetes type 2, controlled History of diverticulosis Hx of diverticulitis of colon Dyslipidemia Surgical History History of surgery on lower extremity History of sleeve gastrectomy Hx of excision of mass Hx of colonoscopy Hx of cholecystectomy History of carpal tunnel release Hx of tubal ligation Hx of foot surgery Family History Father Hypertension Mother No problems noted. Son No problems noted. Son No problems noted. Daughter Hypertension Asthma Obesity Muscle spasm Acute depression Sister No problems noted. Sister No problems noted. Brother No problems noted. Brother No problems noted. Brother No problems noted. Brother No problems noted. Brother No problems noted. Social History Household Members: Family Housing: Apartment Do you presently have visiting nurse or other home services: Yes Alcohol intake: never Patient Tobacco Use Status: Never used Tobacco Advance Directives Date on File: 09/17/21 service: No Current occupational status: unemployed Review of Systems Const Denies weight gain and Denies weight loss ENT Reports no additional complaints, Denies dysphagia and Denies odynophagia Card Reports no additional complaints Resp Reports no additional complaints GI Reports abdominal pain (Epigastric), Denies belching, Denies melena, Reports bloating, Reports constipation, Denies dysphagia, Denies excessive flatus, Reports dyspepsia, Reports heartburn, Denies diarrhea, Denies loose stools, Denies nausea, Denies odynophagia and Denies vomiting Reports no additional complaints Musc Reports no additional complaints Neuro Reports no additional complaints Psych Reports no additional complaints Endo Reports no additional complaints Physical Exam Vital Signs: BMI result Body Mass Index 33.3 Const General: healthy appearing, no acute distress and well developed Nutritional Appearance: well nourished Orientation/consciousness: patient oriented x3 Resp Effort & Inspection: normal respiratory effort, able to speak in complete sentences, no tracheal deviation and symmetric chest movement Auscultation: clear to auscultation bilaterally Cardio Rate: regular rate GI Inspection: Yes normal to inspection and No distended Palpation (GI): Soft to palpation, not firm, nontender and No hepatosplenomegaly present Auscultation: normal bowel sounds General: Yes no CVA tenderness Back/Spine/Pelvis Back: no CVA tenderness Skin General skin exam: elasticity normal, turgor normal and dry skin Neuro General: patient oriented x3 Psych Appearance: grossly normal Mental Status: mental status grossly normal Assessment & Plan Assessment & Plan (1) Nausea: Code(s): R11.0 - Nausea Category: Medical (2) Chronic GERD: Code(s): K21.9 - Gastro-esophageal reflux disease without esophagitis Category: Medical (3) Constipation: Code(s): K59.00 - Constipation, unspecified Qualifiers: Constipation type: slow transit constipation Qualified Code(s): K59.01 - Slow transit constipation (4) Postprandial abdominal bloating: Code(s): R14.0 - Abdominal distension (gaseous) (5) Postprandial epigastric pain: Code(s): R10.13 - Epigastric pain Plan History of elevated liver enzymes will recheck that today. Will rule out celiac, pancreatitis. Will check vitamin B12, folate and vitamin-D levels. History of gastric sleeve. Patient will start taking Nexium in the morning. Patient will start taking senna to help her move her bowels better. She will call our office in 2-3 weeks if she will continue to have symptoms so we can adjust her medications. Follow-up in the office in 2-3 months, sooner on as needed basis. She is agreeable to plan of care and verbalizes understanding of instructions. She was given the opportunity to ask questions and all questions answered. Thank you for allowing me participate in her care Orders: Orders Liver Panel Today R74.01 - Elevation of levels of liver transaminase levels Transglutaminase IgA Today R10.9 - Unspecified abdominal pain Vitamin B12 and Folate Today R19.7 - Diarrhea, unspecified Lipase Today R10.9 - Unspecified abdominal pain Transglutaminase Ab IgG Today R10.9 - Unspecified abdominal pain Vitamin D 25-OH (D2 and D3) Today E55.9 - Vitamin D deficiency, unspecified Medications: New sennosides (Natural Senna Laxative) 17.2 mg (2 x 8.6 mg) PO BEDTIME 60 tabs 3RF constipation K59.00 - Constipation, unspecified esomeprazole magnesium (Nexium) 40 mg PO DAILY 30 caps 5RF K21.9 - Gastro-esophageal reflux disease without esophagitis Discontinued famotidine (Pepcid) Discontinued Reason: Patient no longer taking 40 mg PO DAILY 4 tabs 0RF Coding Level of Care Code New Pt Level 4 (00924) Diagnoses Nausea R11.0 Chronic GERD K21.9 Slow transit constipation K59.01 Constipation type: slow transit constipation Postprandial abdominal bloating R14.0 Postprandial epigastric pain R10.13 Time Spent (min) 45 Comment 30 minutes spent with patient and additional 15 minutes spent reviewing her records
[2024-04-20 10:56] VITALS: BMI 33.3
== END 2024-04-20 11:20 | disposition home or self-care (01) ==
PROVIDERS: PCP Internal Medicine; Visit Provider Nurse Practitioner Family
DX: R11.0 Nausea (principal); K21.9 Gastro-esophageal reflux disease without esophagitis; K59.01 Slow transit constipation; R14.0 Abdominal distension (gaseous); R10.13 Epigastric pain
CPT/HCPCS: 99204

== ENCOUNTER → 2024-04-20 10:49 | Outpatient (BNVA) | payer OTHER, SELFPAY | PROVIDERS: PCP Internal Medicine; Visit Provider Nurse Practitioner Family | DX: K59.00 Constipation, unspecified (principal); K21.9 Gastro-esophageal reflux disease without esophagitis; K59.01 Slow transit constipation; R14.0 Abdominal distension (gaseous); R10.13 Epigastric pain; R53.83 Other fatigue; R42 Dizziness and giddiness; E66.9 Obesity, unspecified; R11.0 Nausea; R19.7 Diarrhea, unspecified; E55.9 Vitamin D deficiency, unspecified; Z98.84 Bariatric surgery status | CPT/HCPCS: 99202 ==

== ENCOUNTER 2024-06-29 08:40 | Outpatient (REF) | payer OTHER, SELFPAY ==
[2024-06-29 11:20] LABS: Appearance Urine Cloudy; Color Urine Yellow; Glucose Urine UA Negative (Negative); Leukocyte Esterase Urine Moderate (2+) (Negative); Nitrite Urine Negative (Negative); UMIC TRIGGER UACC YES; Urine Blood Negative (Negative); Urine Ketones Negative (Negative); Urine Protein Negative (Neg-Trace)
[2024-06-29 11:30] LABS: Bacteria Urine 4+ (None Seen); RBC Urine 0-2 /HPF (0-2); UACC Culture Trigger YES; WBC Urine >50 /HPF (0-5)
[2024-06-29 11:43] LABS: Alanine Aminotransferase 13 U/L (0-31); Alkaline Phosphatase 104 U/L (39-117); Aspartate Amino Transferase 14 U/L (5-31); Bilirubin Direct 0.3 mg/dL (0.0-0.5); Bilirubin Total 0.9 mg/dL (0.0-1.0); Lipase 22 U/L (8-78); Total Protein 6.9 g/dL (6.5-8.0)
[2024-06-29 11:45] LABS: Alanine Aminotransferase 14 U/L (0-31); Alkaline Phosphatase 103 U/L (39-117); Aspartate Amino Transferase 14 U/L (5-31); Bilirubin Direct 0.3 mg/dL (0.0-0.5); Cholesterol 139 mg/dL (<200); HDL Cholesterol 55 mg/dL (>40); LDL Cholesterol Calculated 71 mg/dL (<100); Total Protein 6.9 g/dL (6.5-8.0); Triglycerides 66 mg/dL (<150)
[2024-06-29 12:27] LABS: Folate 7.3 ng/mL (> or = 4.0); Vitamin B12 359 pg/mL (200-900)
[2024-06-29 12:29] LABS: Reflex LDLD? No
[2024-07-03 13:38] LABS: Transglutaminase Ab IgG <1.0 U/mL; Transglutaminase IgA <1.0 U/mL
[2024-07-03 14:03] LABS: Vitamin D 25-OH, D2 <4 ng/mL; Vitamin D 25-OH, D3 25 ng/mL; Vitamin D 25-OH, Total 25 ng/mL (30-100)
== END 2024-06-29 08:41 | disposition home or self-care (01) ==
LOC: HO.HHCL 08:40
PROVIDERS: General Practice; Internal Medicine; Visit Provider Nurse Practitioner Family
DX: R10.9 Unspecified abdominal pain (principal); I10 Essential (primary) hypertension; R74.01 Elevation of levels of liver transaminase levels; R80.9 Proteinuria, unspecified; R19.7 Diarrhea, unspecified; E55.9 Vitamin D deficiency, unspecified
CPT/HCPCS: 36415; 80061; 80076; 81001; 82306; 82607; 82746; 83690; 86364; 87086; 87088; 87186

== ENCOUNTER 2024-07-10 09:04 | Outpatient (REF) | payer OTHER, SELFPAY ==
--- NOTE | ~2024-07-10 | XR_ITS ---
EXAMINATION: XR KNEE, LEFT CLINICAL INFORMATION: 2 month atraumatic left knee pain COMPARISON: None available. TECHNIQUE: Three views of the left knee. FINDINGS: No fracture or malalignment. No joint effusion. Mild degenerative findings. XR/XR knee LT 3V IMPRESSION: Mild osteoarthritis. No fracture or joint effusion. Electronically signed by: Jose Elias Oseguera MD 07/10/2024 12:11 PM EDT
== END 2024-07-10 09:05 | disposition home or self-care (01) ==
LOC: HO.HHCX 09:04
PROVIDERS: Visit Provider Emergency Medicine
DX: M25.562 Pain in left knee (principal)
CPT/HCPCS: 73562

== ENCOUNTER 2024-08-09 08:33 | Outpatient (AMB) | payer OTHER, SELFPAY ==
--- NOTE | 2024-08-09 08:34 | A.OFFVIS_ITS ---
Vital Signs 08/09/24 08:35 Height 5 ft 3 in Weight 189 lb BMI 33.5 Intake Visit Reasons: Skin lesion right leg Intake Note: This patient presents for skin lesion on the right leg. Pt c/o; reports pain/discomfort, reports bilateral lower extremity skin lesions. Mill Roll Rewinder Required: Yes Mill Roll Rewinder Language: Loom Control Chain Builder Services: Mill Roll Rewinder Present Mill Roll Rewinder Name: Bere Information Interpreted: non-clinical & clinical Accompanied by: Self / Same As Patient Allergies pollen Allergy (Unknown, Uncoded 08/09/24 08:43) shortness of breath Pt states no food/medication a Allergy (Unknown, Uncoded 08/09/24 08:43) Anaphylaxis Medication List - Last Reconciled 08/09/24 by Kalia Burleson MD albuterol sulfate 90 mcg/actuation 2 puffs PO Q4-6H PRN alcohol swabs (Alcohol Prep Pads) 1 pad topical QID alirocumab (Praluent Pen) 150 mg subcut Q2W amlodipine 10 mg PO DAILY blood pressure test kit-large As directed blood sugar diagnostic As directed blood sugar diagnostic (FreeStyle Lite Strips) As directed blood-glucose meter (FreeStyle Lite Meter kit) As directed blood-glucose meter (FreeStyle Lite Meter kit) As directed- checks 4 X/day calcium carbonate-vitamin D3 600 mg-20 mcg (800 unit) 1 tab PO BID chlorthalidone 25 mg PO DAILY cholecalciferol (vitamin D3) 50 mcg PO DAILY dulaglutide (Trulicity) mg subcut QWEEK enalapril maleate 20 mg PO DAILY esomeprazole magnesium (Nexium) 40 mg PO DAILY ezetimibe 10 mg PO QAM flash glucose scanning reader (FreeStyle Marcos 2 Uneeda) As directed flash glucose sensor (FreeStyle Marcos 2 Sensor kit) USE DIRECTED. CHANGE EVERY 14 DAYS fluticasone propionate 110 mcg/actuation 1 puff inhalation BID insulin glargine (Lantus Solostar U-100 Insulin) 10 units (0.1 mL) subcut QPM lancets (TRUEplus Lancets) As directed loratadine 10 mg PO DAILY metformin 1,000 mg PO metoprolol succinate ER 50 mg PO DAILY cyablqlf-ltg-OG-lycopen-lutein 0.4 mg-300 mcg- 250 mcg (Complete Multivitamin A dult 50 Plus) 1 tab PO DAILY nebivolol 5 mg PO DAILY oxycodone-acetaminophen 5-325 mg 1 tab PO Q8H PRN pen needle, diabetic (BD Ultra-Fine Tracie Pen Needle) injects once a day phenazopyridine (Pyridium) 100 mg PO TID PRN 6 doses pregabalin 75 mg PO BEDTIME rosuvastatin 40 mg PO BEDTIME sennosides (Natural Senna Laxative) 17.2 mg (2 x 8.6 mg) PO BEDTIME HPI HPI Skin lesion right leg: Details: 69-year-old female referred for a skin lesion on the right lower leg. She says that she has had this for many years and this has been starting to bother her with pain and discomfort. She therefore wants this removed She also complains of pain on the anterior aspect of the right lower leg where she has varicose veins. She denies any drainage from this. [facility] Medical History (Updated 08/09/24 @ 08:59 by Kalia Burleson MD) Skin lesion of right leg Varicosities of leg Uncontrolled type 2 diabetes mellitus Diabetic polyneuropathy associated with type 2 diabetes mellitus Vitamin D deficiency Hypertension Diabetes type 2, controlled History of diverticulosis Hx of diverticulitis of colon Dyslipidemia Surgical History History of surgery on lower extremity History of sleeve gastrectomy Hx of excision of mass Hx of colonoscopy Hx of cholecystectomy History of carpal tunnel release Hx of tubal ligation Hx of foot surgery Family History Father Hypertension Mother No problems noted. Son No problems noted. Son No problems noted. Daughter Hypertension Asthma Obesity Muscle spasm Acute depression Sister No problems noted. Sister No problems noted. Brother No problems noted. Brother No problems noted. Brother No problems noted. Brother No problems noted. Brother No problems noted. Social History Household Members: Family Housing: Apartment Do you presently have visiting nurse or other home services: Yes Alcohol intake: never Patient Tobacco Use Status: Never used Tobacco Advance Directives Date on File: 09/17/21 service: No Current occupational status: unemployed Review of Systems Const Denies chills and Denies fever(s) Card Denies chest pain, Denies dyspnea and Denies dyspnea on exertion Resp Denies cough, Denies dyspnea and Denies dyspnea on exertion GI Denies hematochezia and Denies change in bowel habits Denies hematuria Musc Denies back pain, Reports arthralgias and Denies limited range of motion Neuro Denies focal weakness and Denies convulsions Psych Denies depression and Denies mood swings Physical Exam Vital Signs: BMI result Body Mass Index 33.5 Const Other: Appears obese General: comfortable and no acute distress Orientation/consciousness: patient oriented x3 Neck Neck: Yes no lymphadenopathy Resp Auscultation: clear to auscultation bilaterally Cardio Rhythm: regular rhythm GI Palpation (GI): Soft to palpation, nontender and no guarding Neuro General: patient oriented x3 Extrem Other: Flat skin lesion on the right lower leg anteriorly, about 4 mm in size, pigmented, slightly tender Distal to this on the anterior leg is also note of some superficial varicose veins Assessment & Plan Assessment & Plan (1) Skin lesion of right leg: Code(s): L98.9 - Disorder of the skin and subcutaneous tissue, unspecified Category: Medical Plan: She wants this small skin lesion removed because of pain and discomfort. I explained to her the technique of excision under local anesthesia. I reviewed the risks including but not limited to bleeding, infections, as well as the benefits and alternatives and she wants to proceed She will come back to the office for the procedure which will be done under local anesthesia. I also explained to her what to expect postop. (2) Varicosities of leg: Code(s): I83.90 - Asymptomatic varicose veins of unspecified lower extremity Category: Medical Plan: She has some small varicose veins on the right lower leg. She wants to see a vascular surgeon for this so we will send a referral. Orders: Referrals Vascular Surgery Referral I83.90 - Asymptomatic varicose veins of unspecified lower extremity Coding Level of Care Code New Pt Level 3 (35450) Diagnoses Skin lesion of right leg L98.9 Varicosities of leg I83.90
[2024-08-09 08:35] VITALS: BMI 33.5
== END 2024-08-09 08:57 | disposition home or self-care (01) ==
PROVIDERS: PCP Internal Medicine; Visit Provider Surgery
DX: L98.9 Disorder of the skin and subcutaneous tissue, unspecified (principal); I83.90 Asymptomatic varicose veins of unspecified lower extremity
CPT/HCPCS: 99213

== ENCOUNTER → 2024-08-09 08:33 | Outpatient (BNVA) | payer OTHER, SELFPAY | PROVIDERS: PCP Internal Medicine; Visit Provider Surgery | DX: L98.9 Disorder of the skin and subcutaneous tissue, unspecified (principal); I83.91 Asymptomatic varicose veins of right lower extremity | CPT/HCPCS: 99212 ==

== ENCOUNTER 2024-08-15 10:35 | Outpatient (AMB) | payer OTHER, SELFPAY ==
--- NOTE | 2024-08-15 10:36 | A.OFFVIS_ITS ---
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 Patient states she has been having this issue for about 3-4 months. Patient's left leg is worse. She gets swelling on and off. At night she gets cramping in both legs. Also hurts when she walks. Patient is diabetic. 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 We utilized her daughter for timber setter. Complaints include pain over varicosities, swelling of lower extremities, cramping, fatigue, and heaviness of the lower extremities. It has been affecting their daily activities including walking, standing, and physical activity. It is noted more so in left leg. She states this has been going on for over 3-4 months now. She has pain all the time along with cramping, heaviness, and tiredness. She is status post right heel surgery approximately 6 months ago, and has recovered well. She states that the swelling in her legs have been getting worse since then. She is not a smoker. She is a diabetic, well controlled. Patient denies any previous venous surgery or injections. Patient denies any history of DVT/ PE. Patient denies any history of phlebitis. Trial of compression includes - elevation with little relief. She has compression stockings years ago. They now present for vascular evaluation regarding their varicose veins. [facility] Medical History Skin lesion of right leg Varicosities of leg Uncontrolled type 2 diabetes mellitus Diabetic polyneuropathy associated with type 2 diabetes mellitus Vitamin D deficiency Hypertension Diabetes type 2, controlled History of diverticulosis Hx of diverticulitis of colon Dyslipidemia Surgical History History of surgery on lower extremity History of sleeve gastrectomy Hx of excision of mass Hx of colonoscopy Hx of cholecystectomy History of carpal tunnel release Hx of tubal ligation Hx of foot surgery Family History Father Hypertension Mother No problems noted. Son No problems noted. Son No problems noted. Daughter Hypertension Asthma Obesity Muscle spasm Acute depression Sister No problems noted. Sister No problems noted. Brother No problems noted. Brother No problems noted. Brother No problems noted. Brother No problems noted. Brother No problems noted. Social History Household Members: Family Housing: Apartment Do you presently have visiting nurse or other home services: Yes Alcohol intake: never Patient Tobacco Use Status: Never used Tobacco Advance Directives Date on File: 09/17/21 service: No Current occupational status: unemployed Review of Systems Const Reports as per HPI and Denies weakness ENT Reports Normal hearing present and Denies dizziness Card Reports as per HPI, Denies chest pain, Denies chest pain at rest, Denies chest pain with activity, Denies dyspnea and Denies dyspnea on exertion Resp Reports as per HPI, Denies cough, Denies dyspnea and Denies dyspnea on exertion GI Reports as per HPI, Denies abdominal pain, Denies nausea and Denies vomiting Musc Denies numbness Skin/Breast Reports as per HPI, Denies erythema and Denies wounds Neuro Reports Normal hearing present, Denies dizziness, Denies numbness, Denies Sensory deficit (Neuro) and Denies weakness Psych Reports no additional complaints Endo Reports no additional complaints Physical Exam Const General: healthy appearing and no acute distress Orientation/consciousness: patient oriented x3 HEENT Head: Yes normal to inspection Ears: hearing grossly normal bilaterally Mouth: Normal oral and palatal mucosa present Resp Effort & Inspection: normal respiratory effort and able to speak in complete sentences Auscultation: clear to auscultation bilaterally Cardio Jugular venous distension: no JVD Rate: regular rate Rhythm: regular rhythm Heart sounds: S1 normal heart sound present and S2 normal heart sound present Bruits: no abdominal aortic bruits, no carotid bruits, no femoral bruits and no renal bruits Peripheral pulses: Peripheral pulses 2+ throughout GI Inspection: Yes normal to inspection Palpation (GI): No Abdominal aortic bruit present Skin General skin exam: no rashes or lesions noted Wounds: no wounds Hair: normal Neuro General: patient oriented x3 Cranial nerves: Yes Normal hearing present Cognition (Neuro): normal cognition Gait exam (Neuro): Normal gait present Motor exam (neuro): 5/5 motor strength present throughout Sensory Exam: No Sensory deficit (Neuro) Extrem Other: Bilateral lower extremities: +2 peripheral edema noted. Palpable DP pulses. Several areas of spider veins noted throughout both legs. Discoloration noted around the ankles CEAP: C - 4 E - primary A - superficial P - reflux General: Yes normal to inspection, Yes full ROM, Yes capillary refill normal and Yes normal gait Assessment & Plan Assessment & Plan (1) Varicose veins of both lower extremities with inflammation: Code(s): I83.11 - Varicose veins of right lower extremity with inflammation; I83.12 - Varicose veins of left lower extremity with inflammation Category: Medical Plan: Kalyani is presenting today as a referral for bilateral lower extremity swelling, pain, cramping, and heaviness/tiredness. She states this has been going on for over 3-4 months now. In short, the patient has evidence of venous insufficiency. I have discussed the pathophysiology with the patient. In addition I have provided informational material regarding venous disease to the patient. We have discussed conservative measures including compression, elevation, and exercise. I have also provided a handout regarding appropriate use of compression stockings and where to purchase good compression stockings as well. I have taken the liberty of ordering venous insufficiency testing with the patient. They will follow up with me after testing. The patient had an opportunity to ask questions regarding the treatment plan. All questions were answered. No major barriers to understanding were identified. The patient expressed understanding and agreement with the above treatment plan. The patient is aware they should contact our office by phone for worsening of the current condition or the appearance of new symptoms. Thank you for allowing me to participate in the vascular care of this patient. If you have any questions or concerns regarding the treatment for the above condition please do not hesitate to contact me. The office telephone contact is [phone]. This note is constructed using voice recognition software. While every effort has been made to ensure accuracy, veterinarian laboratory animal care errors may have been included. Thank you for allowing me to participate in the care of your patient. Yours sincerely, JOSE ELIAS Govea Orders: Orders US venous duplex LE BI 1 Week I83.11 - Varicose veins of right lower extremity with inflammation, I83.12 - Varicose veins of left lower extremity with inflammation Coding Level of Care Code New Pt Level 4 (09447) Diagnoses Varicose veins of both lower extremities with inflammation I83.11; I83.12
== END 2024-08-15 11:09 | disposition home or self-care (01) ==
PROVIDERS: PCP Internal Medicine; Visit Provider Physician Assistant Surgical
DX: I83.11 Varicose veins of right lower extremity with inflammation (principal); I83.12 Varicose veins of left lower extremity with inflammation
CPT/HCPCS: 99204

== ENCOUNTER → 2024-08-15 10:35 | Outpatient (BNVA) | payer OTHER, SELFPAY | PROVIDERS: PCP Internal Medicine; Visit Provider Physician Assistant Surgical | DX: I83.11 Varicose veins of right lower extremity with inflammation (principal); I83.12 Varicose veins of left lower extremity with inflammation | CPT/HCPCS: 99202 ==

== ENCOUNTER 2024-08-23 09:01 | Outpatient (REF) | payer OTHER, SELFPAY | END 2024-08-23 09:02 | disposition home or self-care (01) | LOC: HO.LNP 09:01 | PROVIDERS: PCP Internal Medicine; Visit Provider Surgery | DX: L90.5 Scar conditions and fibrosis of skin (principal) | CPT/HCPCS: 11401; 88304 ==

== ENCOUNTER 2024-08-23 09:01 | Outpatient (AMB) | payer OTHER, SELFPAY ==
--- NOTE | 2024-08-23 09:33 | A.OFFVIS_ITS ---
Intake Visit Reasons: excision Skin lesion right leg Intake Note: Office procedure: excision skin lesion right leg. Administrative Support Coordinator Required: Yes Administrative Support Coordinator Language: Safekeeping Clerk Services: Administrative Support Coordinator Present Administrative Support Coordinator Name: Bere Information Interpreted: non-clinical & clinical Accompanied by: Self / Same As Patient Allergies pollen Allergy (Unknown, Uncoded 08/23/24 09:33) shortness of breath Pt states no food/medication a Allergy (Unknown, Uncoded 08/23/24 09:33) Anaphylaxis HPI HPI excision Skin lesion right leg: Details: She is here for excision of a skin lesion from the right leg. [facility] Medical History Skin lesion of right leg Varicosities of leg Uncontrolled type 2 diabetes mellitus Diabetic polyneuropathy associated with type 2 diabetes mellitus Vitamin D deficiency Hypertension Diabetes type 2, controlled History of diverticulosis Hx of diverticulitis of colon Dyslipidemia Surgical History History of surgery on lower extremity History of sleeve gastrectomy Hx of excision of mass Hx of colonoscopy Hx of cholecystectomy History of carpal tunnel release Hx of tubal ligation Hx of foot surgery Family History Father Hypertension Mother No problems noted. Son No problems noted. Son No problems noted. Daughter Hypertension Asthma Obesity Muscle spasm Acute depression Sister No problems noted. Sister No problems noted. Brother No problems noted. Brother No problems noted. Brother No problems noted. Brother No problems noted. Brother No problems noted. Social History Household Members: Family Housing: Apartment Do you presently have visiting nurse or other home services: Yes Alcohol intake: never Patient Tobacco Use Status: Never used Tobacco Advance Directives Date on File: 09/17/21 service: No Current occupational status: unemployed Office Procedures Excision Details: She was in supine position. The area of the lesion on the anterior aspect of the right leg was prepped and draped. Lidocaine 1% was used for local anesthesia. I made an elliptical incision on the skin surrounding this lesion. This carried down through the full-thickness of the skin and subcutaneous fat. Underneath this lesion was an indurated area with a lipoma measuring about 5 mm. This was excised as well I closed the incision with full-thickness nylon 3-0 stitch. Dressings were applied. She tolerated procedure well. There were no immediate complications. 70991-qnfmm/arms/legs 0.6-1cm Procedure code (CPT) selection complete Assessment & Plan Assessment & Plan (1) Skin lesion of right leg: Code(s): L98.9 - Disorder of the skin and subcutaneous tissue, unspecified Category: Medical Plan: Excision was done in the office under local anesthesia. She tolerated the procedure well. She was given wound care instructions. She will be seen for removal of sutures in about 2 weeks. Coding Level of Care Code Global (72420) Diagnoses Skin lesion of right leg L98.9 CPT Codes Trunk/Arms/Legs - CPT: 75579-wmllg/arms/legs 0.6-1cm ([id number])
== END 2024-08-23 10:15 | disposition home or self-care (01) ==
PROVIDERS: PCP Internal Medicine; Visit Provider Surgery
DX: D17.23 Benign lipomatous neoplasm of skin and subcutaneous tissue of right leg (principal)
CPT/HCPCS: 11401

== ENCOUNTER 2024-08-28 09:20 | Outpatient (AMB) | payer OTHER, SELFPAY ==
--- NOTE | 2024-08-28 09:39 | A.OFFVIS_ITS ---
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 No hx of inury. Patient reports ongoing pain for about 2 months. She mentions that she has been having medial knee pain. Patient states that her pain is worse when she is standing and walking for more than a hour, when she is sitting for a long period of time. Patient has tried taking Percocet that was prescribed from her PCP which gave her relief. Final Cigar And Box Examiner Services: Final Cigar And Box Examiner Present (Mariza ([id number])) Allergies pollen Allergy (Unknown, Uncoded 08/23/24 09:33) shortness of breath Pt states no food/medication a Allergy (Unknown, Uncoded 08/23/24 09:33) Anaphylaxis HPI HPI DATA MINER- Left knee pain: Details: 69-year-old female, who is [place] speaking, presents in the office today, as a new patient, for an evaluation of left knee pain. The patient presented to [facility] and was seen by Dr. Phu Dang on 07/10/24 for acute left knee pain. She has been experiencing atraumatic left knee pain, ongoing for two months. She has tried Percocet with mild benefit. Pain is worse with weight- bearing. X-rays of the left knee were obtained. She was referred to [facility] for further evaluation. While in the office today, the patient reports left knee pain, and the onset of the pain is 2 months ago. She specifies experiencing pain on the medial aspect of the left knee. She mentions worsening pain when standing and ambulating for more than an hour and with sitting for a prolonged period of time. She has tried Percocet that was prescribed by her PCP with benefit. The patient has a history of diabetes mellitus. [facility] Medical History (Updated 08/28/24 @ 10:30 by Vanna Silva) Skin lesion of right leg Varicosities of leg Uncontrolled type 2 diabetes mellitus Diabetic polyneuropathy associated with type 2 diabetes mellitus Vitamin D deficiency Hypertension Diabetes type 2, controlled History of diverticulosis Hx of diverticulitis of colon Dyslipidemia Surgical History (Updated 08/27/24 @ 14:20 by Meri Mojica Dylan) History of surgical removal of skin lesion (~08/23/24) History of surgery on lower extremity History of sleeve gastrectomy Hx of excision of mass Hx of colonoscopy Hx of cholecystectomy History of carpal tunnel release Hx of tubal ligation Hx of foot surgery Family History Father Hypertension Mother No problems noted. Son No problems noted. Son No problems noted. Daughter Hypertension Asthma Obesity Muscle spasm Acute depression Sister No problems noted. Sister No problems noted. Brother No problems noted. Brother No problems noted. Brother No problems noted. Brother No problems noted. Brother No problems noted. Social History Household Members: Family Housing: Apartment Do you presently have visiting nurse or other home services: Yes Alcohol intake: never Patient Tobacco Use Status: Never used Tobacco Advance Directives Date on File: 09/17/21 service: No Current occupational status: unemployed Review of Systems Const All systems reviewed & are unremarkable except as noted in HPI and below Physical Exam Const General: cooperative and no acute distress Orientation/consciousness: patient oriented x3 Resp Effort & Inspection: normal respiratory effort and able to speak in complete sentences Cardio Rate: regular rate Peripheral pulses: Peripheral pulses 2+ throughout GI Palpation (GI): Soft to palpation Skin General skin exam: no rashes or lesions noted Lesions: no lesions Rashes: no rashes Neuro General: patient oriented x3 Extrem Other: Left knee: Normal to inspection. No ecchymosis, erythema, or joint effusion. Tenderness to palpation along the medial joint line. Full knee extension and flexion. Crepitus felt with ROM. NVI. Assessment & Plan Assessment & Plan (1) Osteoarthritis of left knee: Code(s): M17.12 - Unilateral primary osteoarthritis, left knee Category: Medical Plan Ms. Auguste is a 69-year-old female, who is [place] speaking, presents in the office today, as a new patient, for an evaluation of left knee pain. The patient presented to [facility] and was seen by Dr. Phu Dang on 07/10/24 for acute left knee pain. She has been experiencing atraumatic left knee pain, ongoing for two months. She has tried Percocet with mild benefit. Pain is worse with weight-bearing. X-rays of the left knee were obtained. She was referred to [facility] for further evaluation. While in the office today, the patient reports left knee pain, and the onset of the pain is 2 months ago. She specifies experiencing pain on the medial aspect of the left knee. She mentions worsening pain when standing and ambulating for more than an hour and with sitting for a prolonged period of time. She has tried Percocet that was prescribed by her PCP with benefit. The patient has a history of diabetes mellitus. We discussed the role of cortisone injections; however, the patient had a cortisone injection in the right knee in the past, which caused her an increase in pain, with no relief. Therefore, she is reluctant to proceed with a left knee cortisone injection. We discussed the role of gel injection, and she expressed interest in pursuing it. We will petition the insurance company for coverage of gel injection. Should the insurance company refuse to offer it, then the next step would be referral to physical therapy. Follow-up will be depending on the insurance approval for gel injection, or sooner if needed. X-rays of the left knee, which were obtained while in the office today and were reviewed by me, Yajaira Ramirez PA-C, revealed: Osteoarthritis. X-rays of the left knee, obtained on 07/10/24, revealed: Mild osteoarthritis. No fracture or joint effusion. Orders: Orders XR knee LT 2V Today M25.569 - Pain in unspecified knee XR knee RT 1V Today M25.569 - Pain in unspecified knee Patient Instructions: Scribed by Vanna Silva, medical affairs director, for Yajaira Ramirez PA-C on 08/28/24 at 10:13 am EST. Coding Level of Care Code Est Pt Level 3 (57148) Diagnoses Osteoarthritis of left knee M17.12
== END 2024-08-28 10:25 | disposition home or self-care (01) ==
PROVIDERS: PCP Internal Medicine; Visit Provider Physician Assistant
DX: M17.12 Unilateral primary osteoarthritis, left knee (principal)
CPT/HCPCS: 99213

== ENCOUNTER 2024-08-28 14:17 | Outpatient (REF) | payer OTHER, SELFPAY ==
--- NOTE | ~2024-08-28 | XR_ITS ---
EXAMINATION: XR KNEE, RIGHT CLINICAL INFORMATION: M25.569 - Pain in unspecified knee COMPARISON: None available. TECHNIQUE: Standing AP view of the right knee. FINDINGS: Small marginal osteophytes in the medial compartment XR/XR knee RT 1V IMPRESSION: Mild medial compartment osteoarthritis. Electronically signed by: Jose Elias Oseguera MD 10/04/2024 11:17 AM [facility]
--- NOTE | ~2024-08-28 | XR_ITS ---
EXAMINATION: XR LEFT KNEE CLINICAL INFORMATION: Pain in unspecified knee M25.569. COMPARISON: XR Left knee 07/10/2024 TECHNIQUE: Standing AP and sunrise views of the left knee. FINDINGS: Small marginal osteophytes in the medial compartment and patellofemoral compartment. No obvious fracture. XR/XR knee LT 2V IMPRESSION: Mild medial and patellofemoral compartment osteoarthritis. Electronically signed by: Jose Elias Oseguera MD 10/04/2024 11:17 AM [facility]
== END 2024-08-28 14:18 | disposition home or self-care (01) ==
LOC: HO.HOSX 14:17
PROVIDERS: Visit Provider Physician Assistant
DX: M25.561 Pain in right knee (principal); M25.562 Pain in left knee; M17.12 Unilateral primary osteoarthritis, left knee
CPT/HCPCS: 73560; 99212

== ENCOUNTER 2024-09-04 09:28 | Outpatient (REF) | payer OTHER, SELFPAY | END 2024-09-04 09:29 | disposition home or self-care (01) | LOC: HO.US 09:28 | PROVIDERS: PCP Internal Medicine; Visit Provider Physician Assistant Surgical | DX: I83.11 Varicose veins of right lower extremity with inflammation (principal); I83.12 Varicose veins of left lower extremity with inflammation | CPT/HCPCS: 93970 ==

== ENCOUNTER 2024-09-06 08:27 | Outpatient (AMB) | payer OTHER, SELFPAY ==
--- NOTE | 2024-09-06 08:51 | MHC.OFFVIS ---
Intake Visit Reasons: s/p suture removal Intake Note: This patient presents for suture removal status post excision skin lesion right leg. Pt c/o; no concerns. 1 suture removed without incident. Claims Adjuster Required: No Accompanied by: Daughter Allergies pollen Allergy (Unknown, Uncoded 09/06/24 08:56) shortness of breath Pt states no food/medication a Allergy (Unknown, Uncoded 09/06/24 08:56) Anaphylaxis HPI HPI s/p suture removal: Details: She underwent excision of a subcutaneous mass from the right lower leg under local anesthesia last 08/23/2024. She tolerated procedure well. She currently denies significant complaints. [facility] Medical History Skin lesion of right leg Varicosities of leg Uncontrolled type 2 diabetes mellitus Diabetic polyneuropathy associated with type 2 diabetes mellitus Vitamin D deficiency Hypertension Diabetes type 2, controlled History of diverticulosis Hx of diverticulitis of colon Dyslipidemia Surgical History History of surgical removal of skin lesion (~08/23/24) History of surgery on lower extremity History of sleeve gastrectomy Hx of excision of mass Hx of colonoscopy Hx of cholecystectomy History of carpal tunnel release Hx of tubal ligation Hx of foot surgery Family History Father Hypertension Mother No problems noted. Son No problems noted. Son No problems noted. Daughter Hypertension Asthma Obesity Muscle spasm Acute depression Sister No problems noted. Sister No problems noted. Brother No problems noted. Brother No problems noted. Brother No problems noted. Brother No problems noted. Brother No problems noted. Social History Household Members: Family Housing: Apartment Do you presently have visiting nurse or other home services: Yes Alcohol intake: never Patient Tobacco Use Status: Never used Tobacco Advance Directives Date on File: 09/17/21 service: No Current occupational status: unemployed Review of Systems Const Denies chills and Denies fever(s) Physical Exam Const General: comfortable and no acute distress Resp Effort & Inspection: normal respiratory effort Extrem Other: Right lower leg incision well healed, not infected Assessment & Plan Assessment & Plan (1) Skin lesion of right leg: Code(s): L98.9 - Disorder of the skin and subcutaneous tissue, unspecified Category: Medical Plan: Status post excision. The incision is well healed. Her sutures were removed Her path report shows fat necrosis likely from previous old trauma. She can follow up on a p.r.n. basis. Coding Level of Care Code Global (54993) Diagnoses Skin lesion of right leg L98.9
== END 2024-09-06 09:06 | disposition home or self-care (01) ==
PROVIDERS: PCP Internal Medicine; Visit Provider Surgery
DX: L98.9 Disorder of the skin and subcutaneous tissue, unspecified (principal)
CPT/HCPCS: 99024

== ENCOUNTER → 2024-09-06 08:27 | Outpatient (BNVA) | payer OTHER, SELFPAY | PROVIDERS: PCP Internal Medicine; Visit Provider Surgery | DX: Z48.02 Encounter for removal of sutures (principal); Z87.2 Personal history of diseases of the skin and subcutaneous tissue; Z98.890 Other specified postprocedural states | CPT/HCPCS: 99212 ==

== ENCOUNTER 2024-09-20 09:06 | Outpatient (AMB) | payer OTHER, SELFPAY ==
--- NOTE | 2024-09-20 09:15 | MHC.OFFVIS ---
Intake Visit Reasons: follow up s/p US 09/04/24 Intake Note: Patient presents for follow up , states same symptoms as last visit. A lot of pain Bilateral leg pain but the left leg is worse. Accompanied by: Daughter Allergies pollen Allergy (Unknown, Uncoded 09/06/24 08:56) shortness of breath Pt states no food/medication a Allergy (Unknown, Uncoded 09/06/24 08:56) Anaphylaxis HPI HPI follow up s/p US 09/04/24: Details: Kalyani is presenting today with her daughter, who we utilized as an translator and interpreter, to follow up for venous insufficiency ultrasound, performed on 09/04/2024. She continues to worse bilateral lower extremity pain and swelling. She has been elevating and does stay very active, her daughter states she is walking all of the time. [facility] Medical History Skin lesion of right leg Varicosities of leg Uncontrolled type 2 diabetes mellitus Diabetic polyneuropathy associated with type 2 diabetes mellitus Vitamin D deficiency Hypertension Diabetes type 2, controlled History of diverticulosis Hx of diverticulitis of colon Dyslipidemia Surgical History History of surgical removal of skin lesion (~08/23/24) History of surgery on lower extremity History of sleeve gastrectomy Hx of excision of mass Hx of colonoscopy Hx of cholecystectomy History of carpal tunnel release Hx of tubal ligation Hx of foot surgery Family History Father Hypertension Mother No problems noted. Son No problems noted. Son No problems noted. Daughter Hypertension Asthma Obesity Muscle spasm Acute depression Sister No problems noted. Sister No problems noted. Brother No problems noted. Brother No problems noted. Brother No problems noted. Brother No problems noted. Brother No problems noted. Social History Household Members: Family Housing: Apartment Do you presently have visiting nurse or other home services: Yes Alcohol intake: never Patient Tobacco Use Status: Never used Tobacco Advance Directives Date on File: 09/17/21 service: No Current occupational status: unemployed Review of Systems Const Reports as per HPI and Denies weakness ENT Reports Normal hearing present and Denies dizziness Card Reports as per HPI, Denies chest pain, Denies chest pain at rest, Denies chest pain with activity, Denies dyspnea and Denies dyspnea on exertion Resp Reports as per HPI, Denies cough, Denies dyspnea and Denies dyspnea on exertion GI Reports as per HPI, Denies abdominal pain, Denies nausea and Denies vomiting Musc Denies numbness Skin/Breast Reports as per HPI, Denies erythema and Denies wounds Neuro Reports Normal hearing present, Denies dizziness, Denies numbness, Denies Sensory deficit (Neuro) and Denies weakness Psych Reports no additional complaints Endo Reports no additional complaints Physical Exam Const General: healthy appearing and no acute distress Orientation/consciousness: patient oriented x3 HEENT Head: Yes normal to inspection Ears: hearing grossly normal bilaterally Mouth: Normal oral and palatal mucosa present Resp Effort & Inspection: normal respiratory effort and able to speak in complete sentences Auscultation: clear to auscultation bilaterally Cardio Jugular venous distension: no JVD Rate: regular rate Rhythm: regular rhythm Heart sounds: S1 normal heart sound present and S2 normal heart sound present Bruits: no abdominal aortic bruits, no carotid bruits, no femoral bruits and no renal bruits Peripheral pulses: Peripheral pulses 2+ throughout GI Inspection: Yes normal to inspection Palpation (GI): No Abdominal aortic bruit present Skin General skin exam: no rashes or lesions noted Wounds: no wounds Hair: normal Neuro General: patient oriented x3 Cranial nerves: Yes Normal hearing present Cognition (Neuro): normal cognition Gait exam (Neuro): Normal gait present Motor exam (neuro): 5/5 motor strength present throughout Sensory Exam: No Sensory deficit (Neuro) Extrem Other: Bilateral lower extremities: +1 peripheral edema noted. Palpable DP pulses. Several areas of spider veins noted throughout both legs. Discoloration noted around the ankles General: Yes normal to inspection, Yes full ROM, Yes capillary refill normal and Yes normal gait Assessment & Plan Assessment & Plan (1) Varicose veins of both lower extremities with inflammation: Code(s): I83.11 - Varicose veins of right lower extremity with inflammation; I83.12 - Varicose veins of left lower extremity with inflammation Category: Medical Plan: Kalyani is presenting today as a follow up to venous insufficiency ultrasound, performed on 09/04/2024. She continues to endorse lower extremity swelling and pain bilaterally. The ultrasound revealed no venous insufficiency. We discussed the importance of continuing with elevation, compression stockings, and physical activity. We discussed to follow up with her primary care for further evaluation and treatment of the bilateral lower extremity swelling and pain. We discussed the importance of a well-balanced diet. If there are any questions or concerns, please do not hesitate to reach out to us. Coding Level of Care Code Est Pt Level 4 (04116) Diagnoses Varicose veins of both lower extremities with inflammation I83.11; I83.12 Comment Review of venous insufficiency ultrasound
== END 2024-09-20 09:23 | disposition home or self-care (01) ==
PROVIDERS: PCP Internal Medicine; Visit Provider Physician Assistant Surgical
DX: I83.11 Varicose veins of right lower extremity with inflammation (principal); I83.12 Varicose veins of left lower extremity with inflammation
CPT/HCPCS: 99214

== ENCOUNTER → 2024-09-20 09:06 | Outpatient (BNVA) | payer OTHER, SELFPAY | PROVIDERS: PCP Internal Medicine; Visit Provider Physician Assistant Surgical | DX: I83.11 Varicose veins of right lower extremity with inflammation (principal); I83.12 Varicose veins of left lower extremity with inflammation | CPT/HCPCS: 99212 ==

== ENCOUNTER 2024-09-27 08:18 | Outpatient (AMB) | payer OTHER, SELFPAY ==
--- NOTE | 2024-09-27 09:06 | A.OFFVIS_ITS ---
Intake Visit Reasons: Left Knee Durolane Gel Injection Intake Note: Kalyani is a 69 year old female who presents today for her Left Knee Durolane Gel Injection. Allergies pollen Allergy (Unknown, Uncoded 09/06/24 08:56) shortness of breath Pt states no food/medication a Allergy (Unknown, Uncoded 09/06/24 08:56) Anaphylaxis HPI HPI Left Knee Durolane Gel Injection: Details: Patient presents to the office today for a 1 time Durolane injection. [facility] Medical History Skin lesion of right leg Varicosities of leg Uncontrolled type 2 diabetes mellitus Diabetic polyneuropathy associated with type 2 diabetes mellitus Vitamin D deficiency Hypertension Diabetes type 2, controlled History of diverticulosis Hx of diverticulitis of colon Dyslipidemia Surgical History History of surgical removal of skin lesion (~08/23/24) History of surgery on lower extremity History of sleeve gastrectomy Hx of excision of mass Hx of colonoscopy Hx of cholecystectomy History of carpal tunnel release Hx of tubal ligation Hx of foot surgery Family History Father Hypertension Mother No problems noted. Son No problems noted. Son No problems noted. Daughter Hypertension Asthma Obesity Muscle spasm Acute depression Sister No problems noted. Sister No problems noted. Brother No problems noted. Brother No problems noted. Brother No problems noted. Brother No problems noted. Brother No problems noted. Social History Household Members: Family Housing: Apartment Do you presently have visiting nurse or other home services: Yes Alcohol intake: never Patient Tobacco Use Status: Never used Tobacco Advance Directives Date on File: 09/17/21 service: No Current occupational status: unemployed Review of Systems Const All systems reviewed & are unremarkable except as noted in HPI and below Physical Exam Const General: cooperative and no acute distress Orientation/consciousness: patient oriented x3 Resp Effort & Inspection: normal respiratory effort and able to speak in complete sentences Cardio Rate: regular rate Peripheral pulses: Peripheral pulses 2+ throughout Skin General skin exam: no rashes or lesions noted Lesions: no lesions Rashes: no rashes Neuro General: patient oriented x3 Extrem Other: Left knee: Normal to inspection. No ecchymosis, erythema, or joint effusion. Tenderness to palpation along the medial joint line. Full knee extension and flexion. Crepitus felt with ROM. NVI. Office Procedures AMB Joint Injection/Aspiration Joint Injection/Aspiration Primary Site: left knee Injected: in the joint (Durolane injection ) Approach Used: anterolateral Procedure: The patient tolerated the procedure well, but had some pain with the injection and there was some relief with the local anesthesia Coding 22665 - Large joint Procedure code (CPT) selection complete Assessment & Plan Assessment & Plan (1) Osteoarthritis of left knee: Code(s): M17.12 - Unilateral primary osteoarthritis, left knee Category: Medical Plan The patient was offered a Durolane injection in the left knee. The patient was explained the risks, benefits, and alternatives to receiving this injection. After receiving consent for the injection, the patient had the procedure done while in the office today. The patient tolerated the procedure well with no complications. Follow-up will be p.r.n., or sooner if needed Coding Level of Care Code Procedure Only Diagnoses Osteoarthritis of left knee M17.12 CPT Codes Coding - 28652 Large joint: 62248 - Large joint ([id number])
== END 2024-09-27 09:15 | disposition home or self-care (01) ==
PROVIDERS: PCP Internal Medicine; Visit Provider Physician Assistant
DX: M17.12 Unilateral primary osteoarthritis, left knee (principal)
CPT/HCPCS: 20610

== ENCOUNTER → 2024-09-27 08:18 | Outpatient (BNVA) | payer OTHER, SELFPAY | PROVIDERS: PCP Internal Medicine; Visit Provider Physician Assistant | DX: M17.12 Unilateral primary osteoarthritis, left knee (principal) | CPT/HCPCS: 20610; J7318 ==

== ENCOUNTER 2024-10-17 11:59 | Outpatient (REF) | payer OTHER, SELFPAY ==
[2024-10-17 13:27] LABS: Appearance Urine Cloudy; Color Urine Yellow; Glucose Urine UA 500 mg/dL (Negative); Leukocyte Esterase Urine Small (1+) (Negative); Nitrite Urine Positive (Negative); UMIC TRIGGER UACC YES; Urine Blood Negative (Negative); Urine Ketones Negative (Negative); Urine Protein Negative (Neg-Trace)
[2024-10-17 13:30] LABS: Bacteria Urine 4+ (None Seen); Hyaline Casts Urine 0-2 /LPF (0-2); RBC Urine 0-2 /HPF (0-2); UACC Culture Trigger YES; WBC Urine 21-50 /HPF (0-5)
[2024-10-17 14:05] LABS: Anion Gap 13 (12-20); Blood Urea Nitrogen 9 mg/dL (9-16); Calcium 9.7 mg/dL (8.4-10.2); Carbon Dioxide 28 mmol/L (22-29); Chloride 106 mmol/L (96-108); Estimated Glomerular Filt Rate > 60; Glucose Random 124 mg/dL (60-115); Potassium 4.6 mmol/L (3.3-5.1); Sodium 142 mmol/L (135-145)
--- OUTSIDE RECORDS SUMMARY | 2024-10-17 14:23 | XMS_ITS | Encounter Summary ---
Author Organization [email or web address] Address [address] [place] [address] Care Team Providers Care Linotype Operator Name Role Phone Audrey Calvo MD Primary Care Provider + Reason for Visit * Reason Comments Med Refill Encounter Details Date Type Department Care Team ([facility] st Contact Info) Description 07/06/2023 Refill [facility] CHC MED & PEDS [address] [place], [place] [phone] Audrey Calvo MD [address] [place] [address] Lumbago with sciatica, unspecified side Social History Tobacco Use Types Packs/Day Years Used Date Smoking Tobacco: Never Passive Smoke Exposure: Never Smokeless Tobacco: Never Alcohol Use Standard Drinks/Week Comments Never 0 (1 standard drink = 0.6 oz pur e alcohol) Depression Answer Date Recorded Patient Health Questionnaire-9 Score 0 12/22/2022 Housing Stability Answer Date Recorded What is your housing situation today? I have marina dias 07/04/[address] you li ve. Do you have problems with any of the following? None of the above 07/04/2023 Food Insecurity Answer Date Recorded Within the past 12 months, y ou worried that your food would run out before you got money to buy more: Never True 07/04/2023 Within the past 12 months,th e food you bought just didn't last and you didn't have enough money to get more: Never True Transportation Answer Date Recorded In the past 12 months, has l ack of transportation kept you from medical appts, meetings, work or from getting things needed for daily living? No 07/04/2023 Utilities Answer Date Recorded In the past 12 months, has t he electric, gas, oil or water company threatened to shut off services in your home? No 07/04/2023 Depression Answer Date Recorded Patient Health Questionnaire-2 Score 0 12/22/2022 Comments Unknown Sex and Gender Information Value Date Recorded Sex Assigned at Female 07/19/2022 10:17 AM EDT Legal Sex Female 10:17 AM EDT Gender Identity Female 07/19/2022 10:17 AM EDT Sexual Orientation Straight 07/19/2022 10 :17 AM EDT documented as of this encounter Plan of Treatment Upcoming Encounters Date Type Department Care Team (Late st Contact Info) Description 11/08/2024 11:00 AM EST Office Visit [facility] ADULT DENTAL [address] [place] [address] Liay Perez 12/11/2024 11:00 AM EDT Office Visit [facility] MEDICINE [address] [place] [address] documented as of this encounter Visit Diagnoses Diagnosis Lumbago with sciatica, unspecified side documented in this encounter Additional Health Concerns Assessment Noted Time PHQ-9 Depression Total Score: 0 12/23/19 23 9:08 AM EDT documented as of this encounter Care Teams Linotype Operator Relationship Specialty Start Date End Date Audrey Calvo MD [address] [place] [address] PCP - General Family Medicine 05/09/17 documented as of this encounter
--- OUTSIDE RECORDS SUMMARY | 2024-10-17 14:23 | XMS_ITS | Encounter Summary ---
Author Organization [employer] Address [address] [place] [address] Care Team Providers Care Oracle Wms Consultant Name Role Phone Audrey Calvo MD Primary Care Provider + Encounter Details Date Type Department Care Team (Late st Contact Info) Description 06/29/2023 Orders Only [facility] CHC MED & PEDS [address] [place], [place] [phone] Emi Gill LPN Social History Tobacco Use Types Packs/Day Years Used Date Smoking Tobacco: Never Passive Smoke Exposure: Never Smokeless Tobacco: Never Alcohol Use Standard Drinks/Week Comments Never 0 (1 standard drink = 0.6 oz pur e alcohol) Depression Answer Date Recorded Patient Health Questionnaire-9 Score 0 12/22/2022 Housing Stability Answer Date Recorded What is your housing situation today? I have marina dias 06/28/[address] you li ve. Do you have problems with any of the following? None of the above 06/28/2023 Food Insecurity Answer Date Recorded Within the past 12 months, y ou worried that your food would run out before you got money to buy more: Never True 06/28/2023 Within the past 12 months,th e food you bought just didn't last and you didn't have enough money to get more: Never True 06/2023 Transportation Answer Date Recorded In the past 12 months, has l ack of transportation kept you from medical appts, meetings, work or from getting things needed for daily living? No 06/28/2023 Utilities Answer Date Recorded In the past 12 months, has t he electric, gas, oil or water company threatened to shut off services in your home? No 06/28/2023 Depression Answer Date Recorded Patient Health Questionnaire-2 [...] Description 11/08/2024 11:00 AM EST Office Visit [facility] ADULT DENTAL [address] [place] [address] Liya Perez 12/11/2024 11:00 AM EDT Office Visit [facility] MEDICINE [address] [place] [address] documented as of this encounter Visit Diagnoses Not on filedocumented in this encounter Additional Health Concerns Assessment Noted Time PHQ-9 Depression Total Score: 0 12/23/19 23 9:08 AM EDT documented as of this encounter Care Teams Oracle Wms Consultant Relationship Specialty Start Date End Date Audrey Calvo MD [address] [place] [address] PCP - General Family Medicine 05/09/17 documented as of this encounter
--- OUTSIDE RECORDS SUMMARY | 2024-10-17 14:24 | XMS_ITS | Encounter Summary ---
Author Organization [employer] Address [address] [place] [address] Care Team Providers Care Precision Dancer Name Role Phone Audrey Calvo MD Primary Care Provider + Encounter Details Date Type Department Care Team ([facility] st Contact Info) Description 07/02/2024 Orders Only [facility] MEDICINE [address] [place], [place] [phone] Cassia Juarez MD [address] [place], [place] [phone] Social History Tobacco Use Types Packs/Day Years Used Date Smoking Tobacco: Never Passive Smoke Exposure: Never Smokeless Tobacco: Never Alcohol Use Standard Drinks/Week Comments Never 0 (1 standard drink = 0.6 oz pur e alcohol) Alcohol Answer Date Recorded Frequency of Alcohol Consumption Not on file 12/23/2023 Average Number of Drinks Not on file 024 Frequency of Binge Drinking Not on file 01/2024 Score 0 12/23/2023 Depression Answer Date Recorded Patient Health Questionnaire-9 Score 3 02/14/2024 Patient Health Questionnaire-9 Score 3 02/14/2024 Last PHQ-9: Questionnaire Data Not on file 0 02/14/2024 Housing Stability Answer Date Recorded What is [...] Answer Date Recorded Patient Health Questionnaire-2 Score 2 02/14/2024 Comments No Sex and Gender Information Value Date Recorded Sex Assigned at Female 07/19/2022 10:17 AM EDT Legal Sex Female 10:17 AM EDT Gender Identity Female 07/19/2022 10:17 AM EDT Sexual Orientation Straight 07/19/2022 10 :17 AM EDT documented as of this encounter Plan of Treatment Upcoming Encounters Date Type Department Care Team (Late st Contact Info) Description 11/08/2024 11:00 AM EST Office Visit [facility] ADULT DENTAL [address] [place] [address] Liya Perez 12/11/2024 11:00 AM EDT Office Visit [facility] MEDICINE [address] [place] [address] documented as of this encounter Visit Diagnoses Not on filedocumented in this encounter Additional Health Concerns Assessment Noted Time PHQ-9 Depression Total Score: 3 02/14/20 24 1:55 PM EDT documented as of this encounter Care Teams Precision Dancer Relationship Specialty Start Date End Date Audrey Calvo MD [address] [place] [address] PCP - General Family Medicine 05/09/17 documented as of this encounter
--- OUTSIDE RECORDS SUMMARY | 2024-10-17 14:24 | XMS_ITS | Encounter Summary ---
Author Organization [employer] Address [address] [place] [address] Care Team Providers Care Instrument Worker Name Role Phone Audrey Calvo MD Primary Care Provider + Encounter Details Date Type Department Care Team ([facility] st Contact Info) Description 12/02/2023 Telephone [facility] MEDICINE [address] [place], [place] [phone] Audrey Calvo MD [address] [place], [place] [phone] Social History Tobacco Use Types Packs/Day Years [...] Description 11/08/2024 11:00 AM EST Office Visit [facility] ADULT DENTAL [address] [place] [address] Liya Perez 12/11/2024 11:00 AM EDT Office Visit [facility] MEDICINE [address] [place] [address] documented as of this encounter Visit Diagnoses Not on filedocumented in this encounter Additional Health Concerns Assessment Noted Time PHQ-9 Depression Total Score: 0 12/23/19 23 9:08 AM EDT documented as of this encounter Care Teams Instrument Worker Relationship Specialty Start Date End Date Adurey Calvo MD [address] [place] [address] PCP - General Family Medicine 05/09/17 documented as of this encounter
--- OUTSIDE RECORDS SUMMARY | 2024-10-17 14:24 | XMS_ITS | Encounter Summary ---
Author Organization [employer] [facility] Address [address] [place] [address] Care Team Providers Care Documentation Coordinator Name Role Phone Audrey Calvo MD Primary Care Provider + Encounter Details Date Type Department Care Team (Latest Contact Info) Description 01/31/2019 Abstract [facility] CONVERSIONS Dental, Provider, DDS Social History Tobacco Use Types Packs/Day Years Used Date Smoking Tobacco: Never Assessed Comments Unknown Sex and Gender Information Value [...] Description 11/08/2024 11:00 AM EST Office Visit [facility] ADULT DENTAL [address] [place] [address] Liya Perez 12/11/2024 11:00 AM EDT Office Visit [facility] MEDICINE [address] [place] [address] documented as of this encounter Visit Diagnoses Not on filedocumented in this encounter Care Teams Documentation Coordinator Relationship Specialty Start Date End Date Audrey Calvo MD [address] [place] [address] PCP - General Family Medicine 05/09/17 documented as of this encounter
--- OUTSIDE RECORDS SUMMARY | 2024-10-17 14:24 | XMS_ITS | Encounter Summary ---
Author Organization [employer] Address [address] [place] [address] Care Team Providers Care Drill Press Operator For Metal Name Role Phone Audrey Calvo MD Primary Care Provider + Reason for Visit * Reason Comments Med Refill Encounter Details Date Type Department Care Team ([facility] Contact Info) Description 10/06/2023 Refill [facility] MEDICINE [address] [place], [place] [phone] Audrey Calvo MD [address] [place], [place] [phone] Social History Tobacco Use Types Packs/Day Years [...] Description 11/08/2024 11:00 AM EST Office Visit [facility] ADULT DENTAL [address] [place] [address] Liya Perez 12/11/2024 11:00 AM EDT Office Visit [facility] MEDICINE [address] [place] [address] documented as of this encounter Visit Diagnoses Not on filedocumented in this encounter Additional Health Concerns Assessment Noted Time PHQ-9 Depression Total Score: 0 12/23/19 23 9:08 AM EDT documented as of this encounter Care Teams Drill Press Operator For Metal Relationship Specialty Start Date End Date Audrey Calvo MD [address] [place] [address] PCP - General Family Medicine 05/09/17 documented as of this encounter
--- OUTSIDE RECORDS SUMMARY | 2024-10-17 14:24 | XMS_ITS | Encounter Summary ---
Author Organization [employer] Address [address] [place] [address] Care Team Providers Care Wreath Machine Tender Name Role Phone Audrey Calvo MD Primary Care Provider + Encounter Details Date Type Department Care Team (Latest Contact Info) Description 10/16/2024 11:00 AM EST Office Visit [facility] MEDICINE [address] [place] [address] Teresa Packer FNP [address] [place] [address] Primary osteoarthritis of both knees (Primary Dx); Cervical spondylosis; [facility] current use of opiate analgesic; Urinary symptom or sign Social History Tobacco Use Types Packs/Day Years [...] the past 12 months, has t he [employer], gas, oil or water company threatened to [...] Description 11/08/2024 11:00 AM EST Office Visit [facility] ADULT DENTAL [address] [place] [address] Liya Perez 12/11/2024 11:00 AM EDT Office Visit [facility] MEDICINE [address] [place] [address] Scheduled Orders Name Type Priority Associated Diagnoses Orde r Schedule Urinalysis with reflex microscopic Lab Routine Urinary symptom or sign Expected: 10/16/2024, Expires: 10/16/2025 documented as of this encounter Procedures Procedure Name Priority Date/Time Associated Diagnosis Comments BASIC METABOLIC PANEL Routine 10/17/2024 12:01 PM EST Urinary symptom or sign POCT CHIQUITA-14 URINE DRUG SCREEN Routine 10/16/2024 2:02 PM EST Primary osteoarthritis of both knees documented in this encounter Results * (ABNORMAL) Basic Metabolic Panel (10/17/2024 12:01 PM EST) Sodium 142 135 - 145 mmol/L [facility] Potassium 4.6 3.3 - 5.1 mmol/L [facility] Comment:Slight Hemolysis.Int erpret result with caution. Chloride 106 96 - 108 mmol/L [facility] Carbon Dioxide 28 22 - 29 mmol/L [facility] Anion Gap 13 12 - 20 [facility] Urea Nitrogen (BUN) 9 9 - 16 mg/dL [facility] Creatinine, Serum 0.68 0.5 - 1.4 mg/dL [facility] Estimated Glomerular Filt Rate >60 [facility] Comment:Chronic Kidney Disea se: Estimated GFR < 60 mL/min/1.91b5Sshpel Kidney Disease: Estimated GFR < 15 mL/min/1.73m2 Glucose 124(H) 60 - 115 mg/dL [facility] Calcium 9.7 8.4 - 10.2 mg/dL [facility] Blood Venous blood specimen / Unknown 10/17/2024 12:01 PM EST 10/17/2024 1:40 PM EST Teresa MUSA LAB BLOOD ORDERABLES Final Res ult [facility] [address] [place] [phone] * POCT CHIQUITA-14 Urine Drug Screen (10/16/2024 2:02 PM EST) Oxycodone Screen, Urine Positive Urine Urine specimen obtained by clean catch procedure / Unknown 10/16/2024 2:02 PM EST Mey Oliveira RN - 10/16/2024 2:02 PM EST UTOX cup Lot#[id number] Exp. 06/13/26 Internal Pass Control Teresa MUSA POINT OF CARE TEST ENTER/EDIT ORDERABLES Final Result documented in this encounter Visit Diagnoses Diagnosis Primary osteoarthritis of both knees- Primary Cervical spondylosis Cervical spondylosis without myelopathy intermission coordinator current use of opiate analgesic Urinary symptom or sign documented in this encounter Additional Health Concerns Assessment Noted Time PHQ-9 Depression Total Score: 3 02/14/20 24 1:55 PM EDT documented as of this encounter Care Teams Wreath Machine Tender Relationship Specialty Start Date End Date Audrey Calvo MD [address] [place] [address] PCP - General Family Medicine 05/09/17 documented as of this encounter
--- OUTSIDE RECORDS SUMMARY | 2024-10-17 14:24 | XMS_ITS | Encounter Summary ---
Author Organization [employer] Address [address] [facility] [address] [place] [address] Care Team Providers Care Wood Cutter Name Role Phone Audrey Calvo MD Primary Care Provider + Encounter Details Date Type Department Care Team (Late st Contact Info) Description 02/15/2024 Orders Only [facility] MEDICINE [address] [place], [place] [phone] Provider, MD [place] Social History Tobacco Use Types Packs/Day Years Used Date Smoking Tobacco: Never Passive Smoke Exposure: Never Smokeless Tobacco: Never Alcohol Use Standard Drinks/Week Comments Never 0 (1 standard drink = 0.6 oz pur e alcohol) Alcohol Answer Date Recorded Frequency of Alcohol Consumption Not on file 12/23/2023 Average Number of Drinks Not on file 024 Frequency of Binge Drinking Not on file 0401/2024 Score 0 12/23/2023 Depression Answer Date Recorded [...] Description 11/08/2024 11:00 AM EST Office Visit [facility] ADULT DENTAL [address] [place] [address] Liya Perez 12/11/2024 11:00 AM EDT Office Visit [facility] MEDICINE [address] [place] [address] documented as of this encounter Procedures Procedure Name Priority Date/Time Associated Diagnosis Comments HM COLONOSCOPY Routine 08/28/2019 8:20 AM EST documented in this encounter Results * Hm Colonoscopy (08/28/2019 8:20 AM EST) Historical Provider HEALTH MAINTENANCE Final Result documented in this encounter Visit Diagnoses Not on filedocumented in this encounter Additional Health Concerns Assessment Noted Time PHQ-9 Depression Total Score: 3 02/14/20 24 1:55 PM EDT documented as of this encounter Care Teams Wood Cutter Relationship Specialty Start Date End Date Audrey Calvo MD [address] [place] [id number] PCP - General Family Medicine 05/09/17 documented as of this encounter
--- OUTSIDE RECORDS SUMMARY | 2024-10-17 14:24 | XMS_ITS | Encounter Summary ---
Author Organization [employer] Address [address] [facility] 7t [place] [address] Care Team Providers Care Debeader Name Role Phone Audrey Calvo MD Primary Care Provider + Reason for Visit * Reason Onset Date Comments Med Refill 10/15/2024 Encounter Details Date Type Department Care Team (Late st Contact Info) Description 10/15/2024 Refill [facility] CHC MED & PEDS [address] [place] [address] Audrey Calvo MD [address] [place] [address] Achilles tendinitis of right lower extremity Social History Tobacco Use Types Packs/Day Years [...] the past 12 months, has t he [employer], [email or web address], oil or water [employer] threatened to shut off services in your home? No 07/04/2023 Depression Answer Date Recorded Patient Health Questionnaire-2 Score 2 02/14/2024 Comments No Sex and Gender Information Value Date Recorded Sex Assigned at Female 07/19/2022 10:17 AM EDT Legal Sex Female 10:17 AM EDT Gender Identity Female 07/19/2022 10:17 AM EDT Sexual Orientation Straight 07/19/2022 10 :17 AM EDT documented as of this encounter Miscellaneous Notes * Addendum Note - Mey Paolmino RN - 10/15/2024 11:49 AM ESTAddended by: MEY PALOMINO on: 10/15/2024 11:49 AM Modules accepted: Orders * Telephone Encounter - Nila Gallardo LPN - 10/15/2024 11:35 AM EST Received request on oxyCODONE-acetaminophen (Percocet) 10-325 MG tablet documented in this encounter Plan of Treatment Upcoming Encounters Date Type Department Care Team (Late st Contact Info) Description 11/08/2024 11:00 AM EST Office Visit [facility] ADULT DENTAL [address] [place], [place] [phone] Liya Perez 12/11/2024 11:00 AM EDT Office Visit [facility] MEDICINE [address] [place] [address] documented as of this encounter Visit Diagnoses Diagnosis Achilles tendinitis of right lower extremity documented in this encounter Additional Health Concerns Assessment Noted Time PHQ-9 Depression Total Score: 3 02/14/20 24 1:55 PM EDT documented as of this encounter Care Teams Debeader Relationship Specialty Start Date End Date Audrey Calvo MD [address] [place] [address] PCP - General Family Medicine 05/09/17 documented as of this encounter
--- OUTSIDE RECORDS SUMMARY | 2024-10-17 14:24 | XMS_ITS | Encounter Summary ---
Author Organization [employer] Address [address] [facility] 7t [place] [address] Care Team Providers Care Filling Machine Operator Name Role Phone Audrey Calvo MD Primary Care Provider + Encounter Details Date Type Department Care Team (Late st Contact Info) Description 11/22/2022 Orders Only [facility] CH[facility] MED & PEDS [address] [place], [place] [phone] Emi Gill LPN Social History Tobacco Use Types Packs/Day Years Used Date Smoking Tobacco: Never Smokeless Tobacco: Never Alcohol Use Standard Drinks/Week Comments Never 0 (1 standard drink = 0.6 oz pur e alcohol) Comments Unknown Sex and Gender Information Value Date Recorded Sex Assigned at Female 07/19/2022 10:17 AM EDT Legal Sex Female 10:17 AM EDT Gender Identity Female 07/19/2022 10:17 AM EDT Sexual Orientation Straight 07/19/2022 10 :17 AM EDT COVID-19 Exposure Response Date Recorded In the last 10 days, have yo u been in contact with someone who was confirmed or suspected to have Coronavirus/COVID-19? No / Unsure 11/18/2022 8:42 AM EST documented as of this encounter Miscellaneous Notes * Result Encounter Note - Audrey Calvo MD - 11/22/2022 3:08 PM EST BMD on 12/07/22 was NORMAL, unchanged from previous one on 2018. No need for further rx at this time, will fu in 3y documented in this encounter Plan of Treatment Upcoming Encounters Date Type Department Care Team (Late st Contact Info) Description 11/08/2024 11:00 AM EST Office Visit [facility] ADULT DENTAL [address] [place] [address] iLya Perez 12/11/2024 11:00 AM EDT Office Visit [facility] MEDICINE [address] [place] [address] documented as of this encounter Procedures Procedure Name Priority Date/Time Associated Diagnosis Comments BD DEXA AXIAL Routine 12/07/2022 11:21 AM EDT documented in this encounter Results * BD DEXA Axial (12/07/2022 11:21 AM EDT) Anatomical Region Laterality Modality Body Radiographic Farheen ging 12/07/2022 11:2 1 AM EDT Narrative 12/08/2022 7:44 AM EDT ? [facility] [place] ? [address] ?[place] [address] ? Mammography Report ? Signed ? Patient: Ubiles,Kalyani I ?MR#: [id number] ?? 83 ? : 1955 ?Acct:[id number] ? Age/Sex: 67 / F ?ADM Date: //23 ? Loc: HO.MAMMO ? Attending Dr: Audrey Calvo MD ? Ordering Physician: Audrey Calvo MD ?Results: ? Date of Service: 12/07/ ?Follow Up: ? Procedure(s): XR DEXA axial skeleton ?? Accession Number(s): [id number] ? cc: Audrey Calvo MD ? EXAMINATION: ?? BONE DENSITOMETRY ? CLINICAL INDICATION: ?? Screening. ? COMPARISON: ?? Previous BD dated 10/14/2017 and baseline BD dated 11/13/2013. ? TECHNIQUE: Using a freshbag DXA System (software version: ?? 13.1) manufactured by [employer], dual-energy x-ray absorptiometry ?? was performed of the lumbar spine and left hip. The images are of good ?? technical quality. Summary results are attached. ? FINDINGS: ?? AP SPINE L1-L4: ?? Current: BMD 1.201 g/cm2, Z-score 0.6, T-score 0.2, normal, 5.0% ?? decrease from previous, 4.9% decrease from baseline (<5% change is not ?? significant). ?? Prior: BMD 1.264 g/cm2. ?? Baseline: BMD 1.263 g/cm2. ? LEFT FEMUR, NECK: ?? Current: BMD 0.926 g/cm2, Z-score -0.1, T-score -0.8, normal. ?? Prior: BMD 1.021 g/cm2. ?? Baseline: BMD 1.062 g/cm2. ? LEFT FEMUR, TOTAL: ?? Current: BMD 1.085 g/cm2, Z-score 1.0, T-score 0.6, normal, 12.9% ?? decrease from previous, 13.1% decrease from baseline (<5% change is not ?? significant). ?? Prior: BMD 1.246 g/cm2. ?? Baseline: BMD 1.248 g/cm2. ? IDENTIFIED RISK FACTORS: ?? Early menopause, secondary osteoporosis. ? HISTORY OF FRACTURE: ?? None listed. ? MEDICATIONS: ?? Vitamin D. ? MM/XR DEXA axial skeleton ?? IMPRESSION: ?? 1. DIAGNOSIS: Normal bone density based on the lowest T-score value of ?? -0.8 in the femoral neck applying World Health Organization criteria. ? 2. 10-YEAR FRACTURE RISK PREDICTION, FRAX: According to the guidelines, ?? FRAX calculation should only be performed on patients in the osteopenia ?? bone density category. Therefore, FRAX was not performed on this ?? patient. ? 3. Treatment Recommendations: NOF guidelines recommend consideration ?? for treatment in postmenopausal women and men age 50 and older ?? presenting with the following: ?? -A hip or vertebral (clinical or morphometric) fracture. ?? -T-score less than or equal to -2.5 at the femoral neck or spine after ?? appropriate evaluation to exclude secondary causes. ?? -Low bone mass at the hip or spine and a 10-year fracture probability ?? by FRAX of greater than or equal to 3% for hip fracture or greater than ?? or equal to 20% for major osteoporotic fracture based on the [place] adapted ?? WHO algorithm. ?? 4. Other Recommendations: All treatment decisions require clinical ?? judgment and consideration of individual patient factors, including ?? patient preferences, comorbidities, previous drug use, risk factors not ?? captured in the FRAX model (e.g. frailty, falls, vitamin D deficiency, ?? increased bone turnover, interval significant decline in bone density) ?? and possible under or overestimation of fracture risk by FRAX. ? FUTURE SCAN RECOMMENDATION: ?? People with diagnosed cases of osteoporosis or at high risk for ?? fracture should have regular bone mineral density tests. For patients ?? eligible for Medicare, routine testing is allowed once every 2 years. ?? The testing frequency can be increased to one year for patients who ?? have rapidly progressing disease, those who are receiving or ?? discontinuing medical therapy to restore bone mass, or have additional ?? risk factors. ? Dictated By: ?Venkatesh Flores MD ? Signed By: ?<Electronically signed by Venkatesh Flores MD in OV> ?12/08/22 0741 ? DD/ 1121 ? TD/TT: ? Bb Shot Packer: PATTERSON ? Procedure Note Ismael, Ricky - 12/08/2022 [facility] [address] [place] [address] Mammography Report Signed Patient: Kalyani Rogers [facility]#: [id number] 81 : 7Acct:[id number] Age/Sex: 67 / FADM Date: 12/07/22 Loc: [facility] Attending Dr: Audrey Calvo MD Ordering Physician: Audrey Calvo MDResults: Date of Service: 12/07/22Follow Up: Procedure(s): XR DEXA axial skeleton Accession Number(s): [id number] cc: Audrey Calvo MD EXAMINATION: BONE DENSITOMETRY CLINICAL INDICATION: Screening. COMPARISON: Previous BD dated 10/14/2017 and baseline BD dated 11/13/2013. TECHNIQUE: Using a freshbag DXA System (software version: 13.1) manufactured by [employer], dual-energy x-ray absorptiometry was performed of the lumbar spine and left hip. The images are of good technical quality. Summary results are attached. FINDINGS: AP SPINE L1-L4: Current: BMD 1.201 g/cm2, Z-score 0.6, T-score 0.2, normal, 5.0% decrease from previous, 4.9% decrease from baseline (<5% change is not significant). Prior: BMD 1.264 g/cm2. Baseline: BMD 1.263 g/cm2. LEFT FEMUR, NECK: Current: BMD 0.926 g/cm2, Z-score -0.1, T-score -0.8, normal. Prior: BMD 1.021 g/cm2. Baseline: BMD 1.062 g/cm2. LEFT FEMUR, TOTAL: Current: BMD 1.085 g/cm2, Z-score 1.0, T-score 0.6, normal, 12.9% decrease from previous, 13.1% decrease from baseline (<5% change is not significant). Prior: BMD 1.246 g/cm2. Baseline: BMD 1.248 g/cm2. IDENTIFIED RISK FACTORS: Early menopause, secondary osteoporosis. HISTORY OF FRACTURE: None listed. MEDICATIONS: Vitamin D. MM/XR DEXA axial skeleton IMPRESSION: 1. DIAGNOSIS: Normal bone density based on the lowest T-score value of -0.8 in the femoral neck applying World Health Organization criteria. 2. 10-YEAR FRACTURE RISK PREDICTION, FRAX: According to the guidelines, FRAX calculation should only be performed on patients in the osteopenia bone density category. Therefore, FRAX was not performed on this patient. 3. Treatment Recommendations: NOF guidelines recommend consideration for treatment in postmenopausal women and men age 50 and older presenting with the following: -A hip or vertebral (clinical or morphometric) fracture. -T-score less than or equal to -2.5 at the femoral neck or spine after appropriate evaluation to exclude secondary causes. -Low bone mass at the hip or spine and a 10-year fracture probability by FRAX of greater than or equal to 3% for hip fracture or greater than or equal to 20% for major osteoporotic fracture based on the [place] adapted WHO algorithm. 4. Other Recommendations: All treatment decisions require clinical judgment and consideration of individual patient factors, including patient preferences, comorbidities, previous drug use, risk factors not captured in the FRAX model (e.g. frailty, falls, vitamin D deficiency, increased bone turnover, interval significant decline in bone density) and possible under or overestimation of fracture risk by FRAX. FUTURE SCAN RECOMMENDATION: People with diagnosed cases of osteoporosis or at high risk for fracture should have regular bone mineral density tests. For patients eligible for Medicare, routine testing is allowed once every 2 years. The testing frequency can be increased to one year for patients who have rapidly progressing disease, those who are receiving or discontinuing medical therapy to restore bone mass, or have additional risk factors. Dictated By: Venkatesh Flores MD Signed By: <Electronically signed by Venkatesh Flores MD in OV> 12/08/22 0741 DD/ 1121 TD/TT: Bb Shot Packer: PATTERSON [facility] External Provider IMG DXA PROCEDURES Final Result documented in this encounter Visit Diagnoses Not on filedocumented in this encounter Care Teams Filling Machine Operator Relationship Specialty Start Date End Date Audrey Calvo MD [address] [place] [id number] PCP - General Family Medicine 05/09/17 documented as of this encounter
--- OUTSIDE RECORDS SUMMARY | 2024-10-17 14:24 | XMS_ITS | Encounter Summary ---
Author Organization [employer] Address [address] [facility] [address] 7[address] [place] [address] Care Team Providers Care Federal Mediation Commissioner Name Role Phone Audrey Calvo MD Primary Care Provider + Reason for Visit * Reason Comments Routine Cleaning Dental Exam Encounter Details Date Type Department Care Team ([facility] st Contact Info) Description 09/24/2024 9:00 AM EST Office Visit [facility] ADULT DENTAL [address] [place], [place] [phone] Liya Perez Dental calculus (Primary Dx); Dental plaque; Periodontal disease Social History Tobacco Use Types Packs/Day Years [...] AM EDT documented as of this encounter Last Filed Vital Signs Vital Sign Reading Time Taken Comments Blood Pressure 158/86 09/24/2024 9:09 AM EST Pulse - - Temperature - - Respiratory Rate - - Oxygen Saturation - - Inhaled Oxygen Concentration - - Weight - - Height - - Body Mass Index - - documented in this encounter Progress Notes * Liya Perez - 09/24/2024 9:00 AM EST Patient ID: Kalyani Rogers is a 69 y.o. female. Time Out: Timeout Date: 09/24/24, Timeout Time: 09 (Dental SRP Adult) Location: [facility] Tooth: UL and LL Procedure: Scaling and Root Planing Verified the above with patient, assistant gm of content & delivery, and provider. Confirmed via patient's chart, intraorally and by radiographs. Biological Technician: not applicable Medical Hx: Vitals: Blood pressure (!) 158/86. Medications, Med Hx reviewed with patient and updated in chart. Treatment Provided Dental procedures in this visit D4342 - PERIODONTAL SCALING AND ROOT PLANING - 1 TO 3 TEETH PER QUADRANT UL (Completed) Service provider: Liya Buckner provider: Jeremiah Rubi DMD D4341 - PERIODONTAL SCALING AND ROOT PLANING - 4 OR MORE TEETH PER QUADRANT LL (Completed) Service provider: Liya Buckner provider: Jeremiah Rubi DMD [id number] - CASE PRESENTATION, DETAILED AND EXTENSIVE TREATMENT PLANNING (Completed) Service provider: Liya Buckner provider: Jeremiah Rubi DMD D1330 - ORAL HYGIENE INSTRUCTIONS (Completed) Service provider: Liya Perez Billing provider: Jeremiah Rubi DMD Topical: 20% Benzocaine Anesthesia: 2% Lidocaine (Xylocaine) w/ 1:100,000 epinephrine Number of Cartridges: 2 Injection Type: Buccal infiltration, Inferior alveolar nerve block, Long buccal nerve block, Anterior superior alveolar nerve block, and Posterior superior alveolar nerve block Confirmed profound anesthesia. Oral Cancer Screening: No lesions Head/Neck Exam: No Lesions Instruments Used: Ultrasonic Scalers Fluoride: N/A Calculus: Moderate, Generalized, and Subgingival Plaque: Moderate and Generalized Stain: Moderate and Generalized Bleeding: Moderate and Generalized Gingiva: Recession- generalized and Erythematous [place]: Poor Oral hygiene instructions provided to patient including brushing technique and flossing. Recommendations: [place] two times daily, modified mims technique, Floss daily, Electric toothbrush, Soft bristle toothbrush, [place] Tongue, Anti-sensitivity toothpaste Recall Frequency: 3 mo NV: 3m Hygienist: Liya Perez RDH documented in this encounter Plan of Treatment Upcoming Encounters Date Type Department Care Team (Late st Contact Info) Description 11/08/2024 11:00 AM EST Office Visit [facility] ADULT D[facility] [address] [place] [address] Liya Perez 12/11/2024 11:00 AM EDT Office Visit [facility] [address] [place] [address] documented as of this encounter Procedures Procedure Name Priority Date/Time Associated Diagnosis Comments LL PERIODONTAL SCALING AND ROOT PLANING - 4 OR MORE TEETH PER QUADRANT Routine 09/24/2024 9:00 AM EST Dental calculus Dental plaque Periodontal disease UL PERIODONTAL SCALING AND ROOT PLANING - 1 TO 3 TEETH PER QUADRANT Routine 09/24/2024 9:00 AM EST Dental calculus Dental plaque Periodontal disease ORAL HYGIENE INSTRUCTIONS Routine 09/24/2024 9:00 AM EST Dental calculus Dental plaque Periodontal disease ADJUNCTIVE GENERAL SERVICES - PROFESSIONAL VISITS - CASE PRESENTATION, SUBSEQUENT TO DETAILED AND EXTENSIVE TREATMENT PLANNING Routine 09/24/2024 9:00 AM EST documented in this encounter Visit Diagnoses Diagnosis Dental calculus- Primary Accretions on teeth Dental plaque Accretions on teeth Periodontal disease Unspecified gingival and periodontal disease documented in this encounter Additional Health Concerns Assessment Noted Time PHQ-9 Depression Total Score: 3 02/14/20 24 1:55 PM EDT documented as of this encounter Care Teams Federal Mediation Commissioner Relationship Specialty Start Date End Date Audrey Calvo MD [address] [place] [address] PCP - General Family Medicine 05/09/17 documented as of this encounter
--- OUTSIDE RECORDS SUMMARY | 2024-10-17 14:24 | XMS_ITS | Encounter Summary ---
Author Organization [employer] [facility] Address [address] [place] [address] 7t [place] [address] Care Team Providers Care Mailroom Supervisor Name Role Phone Audrey Calvo MD Primary Care Provider + Encounter Details Date Type Department Care Team (Late st Contact Info) Description 10/07/2022 Orders Only [facility] MEDICINE [address] [place] [phone] Nila Gallardo LPN Social History Tobacco Use Types Packs/Day [...] Description 11/08/2024 11:00 AM EST Office Visit [facility] ADULT DENTAL [address] [place] [address] Liya Perez 12/11/2024 11:00 AM EDT Office Visit [facility] MEDICINE [address] [place] [address] documented as of this encounter Visit Diagnoses Not on filedocumented in this encounter Care Teams Mailroom Supervisor Relationship Specialty Start Date End Date Audrey Calvo MD [address] [place] [address] PCP - General Family Medicine 05/09/17 documented as of this encounter
--- OUTSIDE RECORDS SUMMARY | 2024-10-17 14:24 | XMS_ITS | Encounter Summary ---
Author Organization [employer] [facility] Address [address] [place] [address] 7[address] [place] [address] Care Team Providers Care Electronic Device Repairer Name Role Phone Audrey Calvo MD Primary Care Provider + Reason for Visit * Reason Comments Med Refill Encounter Details Date Type Department Care Team (Late st Contact Info) Description 03/31/2023 Refill [facility] MEDICINE [address] [place] [phone] Audrey Calvo MD [address] [place] [address] [phone] HTN (hypertension), benign Social History Tobacco Use Types Packs/Day Years Used Date Smoking Tobacco: Never Passive Smoke Exposure: Never Smokeless Tobacco: Never Alcohol Use Standard Drinks/Week Comments Never 0 (1 standard drink = 0.6 oz pur e alcohol) Depression Answer Date Recorded Patient Health Questionnaire-9 Score 0 12/22/2022 Depression Answer Date Recorded Patient Health Questionnaire-2 [...] Encounters Date Type Department Care Team (Late Contact Info) Description 11/08/2024 11:00 AM EST Office Visit [facility] ADULT DENTAL [address] [place] [address] [phone] Liya Perez 12/11/2024 11:00 AM EDT Office Visit [facility] MEDICINE [address] [place] [address] documented as of this encounter Visit Diagnoses Diagnosis HTN (hypertension), benign Essential hypertension, benign documented in this encounter Additional Health Concerns Assessment Noted Time PHQ-9 Depression Total Score: 0 12/23/19 23 9:08 AM EDT documented as of this encounter Care Teams Electronic Device Repairer Relationship Specialty Start Date End Date Audrey Calvo MD [address] [place] [address] PCP - General Family Medicine 05/09/17 documented as of this encounter
--- OUTSIDE RECORDS SUMMARY | 2024-10-17 14:24 | XMS_ITS | Encounter Summary ---
Author Organization [employer] Address [address] [facility] [address] [place] [address] Care Team Providers Care Hospital Administrator Name Role Phone Audrey Calvo MD Primary Care Provider + Reason for Visit * Reason Onset Date Comments PEN RIDER signed today 10/16/2024 Encounter Details Date Type Department Care Team ([facility] st Contact Info) Description 10/16/2024 Telephone [facility] MEDICINE [address] [place], [place] [phone] Mey Vargas RN PEN RIDER signed today Social History Tobacco Use Types Packs/Day Years [...] as of this encounter Miscellaneous Notes * Telephone Encounter - Mey Vargas RN - 10/16/2024 2:05 PM EST Pt attended chronic pain group today PEN RIDER Agreement signed today BPI updated Pain severity score of 8, activity interference score of 5.6. Previous BPI completed 06/12/24 with pain severity score of 7, activity interference score of 5. documented in this encounter Plan of Treatment Upcoming Encounters Date Type Department Care Team (Late st Contact Info) Description 11/08/2024 11:00 AM EST Office Visit [facility] ADULT DENTAL [address] [place] [address] Liya Perez 12/11/2024 11:00 AM EDT Office Visit [facility] MEDICINE [address] [place] [address] documented as of this encounter Visit Diagnoses Not on filedocumented in this encounter Additional Health Concerns Assessment Noted Time PHQ-9 Depression Total Score: 3 02/14/20 1:55 PM EDT documented as of this encounter Care Teams Hospital Administrator Relationship Specialty Start Date End Date Audrey Calvo MD [address] [place] [address] PCP - General Family Medicine 05/09/17 documented as of this encounter
--- OUTSIDE RECORDS SUMMARY | 2024-10-17 14:24 | XMS_ITS | Encounter Summary ---
Author Organization [employer] Address [address] [facility] 7t [place] [address] Care Team Providers Care Structural Welder Name Role Phone Audrey Calvo MD Primary Care Provider + Reason for Visit * Reason Comments Med Refill Encounter Details Date Type Department Care Team ([facility] Contact Info) Description 08/18/[address] [facility] MEDICINE [address] [place], [place] [phone] Audrey Calvo MD [address] [place], [place] [phone] Social History Tobacco Use Types Packs/Day Years [...] 11:00 AM EST Office Visit [facility] ADULT DENTAL [address] [place] [address] Liya Perez 12/11/2024 11:00 AM EDT Office Visit [facility] MEDICINE [address] [place] [address] documented as of this encounter Visit Diagnoses Not on filedocumented in this encounter Additional Health Concerns Assessment Noted Time PHQ-9 Depression Total Score: 0 12/23/19 23 9:08 AM EDT documented as of this encounter Care Teams Structural Welder Relationship Specialty Start Date End Date Audrey Calvo MD [address] [place] [phone] PCP - General Family Medicine 05/09/17 documented as of this encounter
--- OUTSIDE RECORDS SUMMARY | 2024-10-17 14:24 | XMS_ITS | Encounter Summary ---
Author Organization [employer] Address [address] [facility] 7t [place] [address] Care Team Providers Care Credit Control Clerk Name Role Phone Audrey Calvo MD Primary Care Provider + Reason for Visit * Reason Comments Med Refill Encounter Details Date Type Department Care Team ([facility] st Contact Info) Description 09/28/2024 Refill [facility] MEDICINE [address] [place], [place] [phone] Audrey Calvo MD [address] [place], [place] [phone] Chronic rhinitis; HTN (hypertension), benign Social History Tobacco Use [...] Description 11/08/2024 11:00 AM EST Office Visit [facility] ADULT DENTAL [address] [place] [address] Liya Perez 12/11/2024 11:00 AM EDT Office Visit [facility] MEDICINE [address] [place] [address] documented as of this encounter Visit Diagnoses Diagnosis Chronic rhinitis HTN (hypertension), benign Essential hypertension, benign documented in this encounter Additional Health Concerns Assessment Noted Time PHQ-9 Depression Total Score: 3 02/14/20 24 1:55 PM EDT documented as of this encounter Care Teams Credit Control Clerk Relationship Specialty Start Date End Date Audrey Calvo MD [address] [place] [address] PCP - General Family Medicine 05/09/17 documented as of this encounter
--- OUTSIDE RECORDS SUMMARY | 2024-10-17 14:24 | XMS_ITS | Encounter Summary ---
Author Organization [employer] Address [address] [facility] [address] 7[address] [place] [address] Care Team Providers Care Blanket Binder Name Role Phone Audrey Calvo MD Primary Care Provider + Encounter Details Date Type Department Care Team (Latest Contact Info) Description 10/16/2024 Travel Social History Tobacco Use Types Packs/Day Years [...] Description 11/08/2024 11:00 AM EST Office Visit [facility] ADULT DENTAL [address] [place] [address] Liya Perez 12/11/2024 11:00 AM EDT Office Visit [facility] [address] [place] [address] documented as of this encounter Visit Diagnoses Not on filedocumented in this encounter Additional Health Concerns Assessment Noted Time PHQ-9 Depression Total Score: 3 02/14/20 24 1:55 PM EDT documented as of this encounter Care Teams Blanket Binder Relationship Specialty Start Date End Date Audrey Calvo MD [address] [place] [address] PCP - General Family Medicine 05/09/17 documented as of this encounter
--- OUTSIDE RECORDS SUMMARY | 2024-10-17 14:24 | XMS_ITS | Encounter Summary ---
Author Organization [facility] [facility] Address [address] [facility] 7t [place] [address] Care Team Providers Care Art Specialist Name Role Phone Audrey Calvo MD Primary Care Provider + Encounter Details Date Type Department Care Team (Late Contact Info) Description 10/26/2022 Orders Only [facility] MEDICINE [address] [place] [phone] Nila Gallardo LPN Social History Tobacco Use [...] suspected to have Coronavirus/COVID-19? No / Unsure 10/20/2022 10:04 AM EST documented as of this encounter Plan of Treatment Upcoming Encounters Date Type Department Care Team (Late st Contact Info) Description 11/08/2024 11:00 AM EST Office Visit [facility] ADULT DENTAL [address] [facility], [place] [phone] Liya Perez 12/11/2024 11:00 AM EDT Office Visit [facility] MEDICINE [address] [facility], [place] [phone] documented as of this encounter Procedures Procedure Name Priority Date/Time Associated Diagnosis Comments BI MAMMOGRAM SCREENING TOMOSYNTHESIS BILATERAL Routine 11/09/2022 8:12 AM EST documented in this encounter Results * BI Mammogram Screening Tomosynthesis Bilateral (11/09/2022 8:12 AM EST) Anatomical Region Laterality Modality Breast Bilateral Mammography 11/09/2022 8:12 AM EST Narrative 11/10/2022 8:58 AM EST ? [facility] ? [address] ?[place] [id number] ? Mammography Report ? Signed ? Patient: Kendrickmelania,Kalyani I ?MR#: [id number] ?? 83 ? : 1955 ?Acct:[id number] ? Age/Sex: 67 / F ?ADM Date: 11/09/22 ? Loc: HO.MAMMO ? Attending Dr: Audrey Calvo MD ? Ordering Physician: Audrey Calvo MD ?Results: 1Ne ?? gative ? Date of Service: 11/09/22 ?Follow Up: 1 Year From Orig ?? inal Mammogram ? Procedure(s): MM tomosynthesis screening BI ?? Accession Number(s): [id number] ? cc: Audrey Calvo MD ? EXAMINATION: ?? MM SCREENING DIGITAL BREAST TOMOSYNTHESIS, BILATERAL ? CLINICAL INFORMATION: ? Screening. Asymptomatic. ? The lifetime risk of breast cancer based on the Tyrer-Cuzick Model is ?? 4.8%. ? COMPARISON: ?? Mammography: November 13, 2021 and studies dating back to December 06, ?? 2014 ? TECHNIQUE: ?? Digital breast tomosynthesis is performed in both the craniocaudal and ?? mediolateral oblique views along with computer-aided detection (CAD). ?? Synthesized 2D images are generated from the tomosynthesis. ? FINDINGS: ?? The breasts are almost entirely fatty (ACR BI-RADS breast composition ?? Category a). ? There are no significant masses, abnormal calcifications, or other ?? abnormalities. ? MM/MM tomosynthesis screening BI ?? IMPRESSION: ?? No significant changes from prior exam. ? ASSESSMENT: ? BI-RADS 1: Negative ? RECOMMENDATION: ?? Routine annual mammography screening. ? This patient's information was entered into a reminder system with a ?? target due date for their next mammogram. ? Dictated By: ?Chandra Moseley MD ? Signed By: ?<Electronically signed by Chandra Moseley MD in OV> ?11/10/22 08 ? DD/ 0812 ? TD/TT: ? Exercise Equipment Repair Technician: SK ? Procedure Note Ricky Guevara - 11/10/2022 [facility] [address] [place], [place] [address] Mammography Report Signed Patient: Kalyani Rogers IMR#: [id number] [birth year] : 7Acct:[id number] Age/Sex: 67 / FADM Date: 11/09/22 Loc: HO.MAMMO Attending Dr: Audrey Calvo MD Ordering Physician: Audrey Calvo MDResults: 1Ne gative Date of Service: 11/09/22Follow Up: 1 Year From Orig inal Mammogram Procedure(s): MM tomosynthesis screening BI Accession Number(s): [id number] cc: Audrey Calvo MD EXAMINATION: MM SCREENING DIGITAL BREAST TOMOSYNTHESIS, BILATERAL CLINICAL INFORMATION: Screening. Asymptomatic. The lifetime risk of breast cancer based on the Tyrer-Cuzick Model is 4.8%. COMPARISON: Mammography: November 13, 2021 and studies dating back to December 06, 2013 TECHNIQUE: Digital breast tomosynthesis is performed in both the craniocaudal and mediolateral oblique views along with computer-aided detection (CAD). Synthesized 2D images are generated from the tomosynthesis. FINDINGS: The breasts are almost entirely fatty (ACR BI-RADS breast composition Category a). There are no significant masses, abnormal calcifications, or other abnormalities. MM/MM tomosynthesis screening BI IMPRESSION: No significant changes from prior exam. ASSESSMENT: BI-RADS 1: Negative RECOMMENDATION: Routine annual mammography screening. This patient's information was entered into a reminder system with a target due date for their next mammogram. Dictated By: Chandra Moseley MD Signed By: <Electronically signed by Chandra Moseley MD in OV> 11/10/22 0855 DD/ 0812 TD/TT: Exercise Equipment Repair Technician: SK [facility] External Provider IMG BI PROCEDURES Edited Result - Final documented in this encounter Visit Diagnoses Not on filedocumented in this encounter Care Teams Art Specialist Relationship Specialty Start Date End Date Audrey Calvo MD [address] [place] [phone] PCP - General Family Medicine 05/09/17 documented as of this encounter
--- OUTSIDE RECORDS SUMMARY | 2024-10-17 14:24 | XMS_ITS | Encounter Summary ---
Author Organization [employer] Address [address] [facility] 7t [place] [address] Care Team Providers Care Window And Door Installer Name Role Phone Audrey Calvo MD Primary Care Provider + Reason for Visit * Reason Comments Med Refill Encounter Details Date Type Department Care Team ([facility] Contact Info) Description 09/20/2024 Refill [facility] MEDICINE [address] [place], [place] [phone] Audrey Calvo MD [address] [place], [place] [phone] Chronic rhinitis Social History Tobacco Use Types Packs/Day Years [...] Description 11/08/2024 11:00 AM EST Office Visit [facility] ADULT DENTAL [address] [place] [address] Liya Perez 12/11/2024 11:00 AM EDT Office Visit [facility] [address] [place] [address] documented as of this encounter Visit Diagnoses Diagnosis Chronic rhinitis documented in this encounter Additional Health Concerns Assessment Noted Time PHQ-9 Depression Total Score: 3 02/14/20 24 1:55 PM EDT documented as of this encounter Care Teams Window And Door Installer Relationship Specialty Start Date End Date Audrey Calvo MD [address] [place] [address] PCP - General Family Medicine 05/09/17 documented as of this encounter
--- OUTSIDE RECORDS SUMMARY | 2024-10-17 14:24 | XMS_ITS | Clinical Summary ---
Author Organization [employer] Address [address] [place] [address] Care Team Providers Care Center Human Resources Manager Name Role Phone Audrey Calvo MD Primary Care Provider + Allergies Active Allergy Reactions Criticality Noted Date Comments Aspirin 08/15/2018 Medications FREESTYLE LITE test stripIndications :Type 2 diabetes mellitus with unspecified complications ([facility]) TEST BLOOD SUGAR TWICE DAILY 100 strip 11 023 Active TRUEplus Lancets 33G miscIndications: Type 2 diabetes mellitus with unspecified complications ([facility]) TEST BLOOD SUGAR TWICE DAILY 100 each 11 023 Active albuterol 108 (90 Base) MCG/ACT inhaler INHALE 2 PUFFS BY MOUTH EVERY 4 TO 6 HOURS NEEDED 8.5 g 3 023 Active albuterol (Ventolin HFA) 108 (90 Base) MCG/ACT inhaler inhale 2 puff by inhalation route every 4 - 6 hours as needed 013 Active insulin pen needle (UltiGuard SafePack Pen Needle) 32G x 4 mm misc Use once daily 100 each 4 024 Active fluticasone furoate (Arnuity Ellipta) 100 MCG/ACT inhaler Inhale 1 puff in the morning. 1 each 11 024 2024 Active naloxone (Narcan) 4 mg/0.1 mL nasal sprayIndications :Other chronic pain Administer 1 spray (4 mg) into affected nostril(s) if needed for opioid reversal. May repeat every 2-3 minutes if needed, alternating nostrils, until medical assistance becomes available. 2 each 3 024 2024 Active Trulicity 3 MG/0.5ML solution pen-injectorIndi cations:Type 2 diabetes mellitus with hyperglycemia, without long-term current use of insulin ([facility]) INJECT ONE PEN (= 3MG) SUBCUTANEOUSLY ONCE A WEEK DIRECTED 2 mL Active metFORMIN (Glucophage) 500 MG tablet TAKE 2 TABLETS BY MOUTH TWICE DAILY IN THE MORNING AND EVENING WITH MEALS 360 tablet 3 024 Active Lantus SoloStar 100 UNIT/ML penIndications:T ype 2 diabetes mellitus with hyperglycemia, without long-term current use of insulin ([facility]) Inject 15 units subcutaneously every evening 3 mL 024 Active capsaicin (Capzasin-HP) 0.1 % creamIndications :Primary osteoarthritis of both knees,Other chronic pain Apply thin layer by topical route up to 4 times daily for pain. 45 g 3 024 Active hydrocortisone 2.5 % ointmentIndicati ons:Dermatitis APPLY TO THE AFFECTED AREA(S) ON HAND TWICE DAILY FOR ONE WEEK. CALL DOCTOR IF SYMPTOMS PERSIST. 28.35 g 1 024 Active enalapril (Vasotec) 20 MG tabletIndication s:Primary hypertension TAKE 1 TABLET BY MOUTH EVERY MORNING 90 tablet 1 024 Active Continuous Glucose Sensor (FreeStyle Marcos 2 Sensor) misc TEST BLOOD SUGAR DIRECTED. CHANGE EVERY 14 DAYS 6 each 3 024 2024 Active clotrimazole (Lotrimin) 1 % creamIndications :Candidiasis of perineum APPLY TOPICALLY TO THE AFFECTED AREA(S) TWICE DAILY 30 g 2 024 Active pantoprazole (ProtoNix) 40 MG EC tabletIndication s:Gastroesophage al reflux disease without esophagitis Take 1 tablet (40 mg) by mouth in the morning. Do not crush, chew, or split. 30 tablet 024 Active Diclofenac Sodium 1 % gelIndications:P rimary osteoarthritis of both knees,Other chronic pain APPLY 2 GRAMS TOPICALLY TO AFFECTED AREA(S) THREE TIMES DAILY NEEDED FOR PAIN 100 g 1 024 Active lidocaine (Lidoderm) 5 % patchIndications :Primary osteoarthritis of both knees,Other chronic pain APPLY 1 PATCH TOPICALLY TO SKIN, LEAVE ON FOR 12 HOURS AND OFF FOR 12 HOURS DIRECTED 30 patch 3 Active Alcohol Swabs (Alcohol Prep) 70 % pads USE DIRECTED UP TO 4 TIMES PER DAY 100 each 11 Active metoprolol succinate XL (Toprol-XL) 50 MG 24 hr tabletIndication s:Primary hypertension TAKE 1 TABLET BY MOUTH EVERY MORNING 30 tablet 3 Active pregabalin (Lyrica) 75 MG capsuleIndicatio ns:Diabetic polyneuropathy associated with type 2 diabetes mellitus (CMS/HCC) TAKE 1 CAPSULE BY MOUTH AT BEDTIME 30 capsule 2 Active rosuvastatin (Crestor) 40 MG tablet TAKE 1 TABLET BY MOUTH AT BEDTIME 90 tablet 3 024 Active Praluent 150 MG/ML injection INJECT 150 MG SUBCUTANEOUSLY EVERY 2 WEEKS 2 mL 1 Active amLODIPine (Norvasc) 10 MG tablet TAKE 1 TABLET BY MOUTH AT BEDTIME 30 tablet 3 024 Active loratadine (Claritin) 10 MG tabletIndication s:Chronic rhinitis TAKE 1 TABLET BY MOUTH EVERY MORNING 90 tablet 3 025 Active chlorthalidone (Hygroton) 25 MG tabletIndication s:HTN (hypertension), benign TAKE 1 TABLET BY MOUTH EVERY MORNING 90 tablet 3 025 Active ezetimibe (Zetia) 10 MG tablet TAKE 1 TABLET BY MOUTH EVERY MORNING 90 tablet 3 025 Active cholecalciferol (D3 Super Strength) 50 MCG (2000 UT) capsule TAKE 1 CAPSULE BY MOUTH EVERY MORNING 90 capsule 3 025 Active oxyCODONE-acetam inophen (Percocet) 10-325 MG tabletIndication s:Achilles tendinitis of right lower extremity Take 1 tablet by mouth every 12 (twelve) hours if needed for severe pain for up to 28 days. 56 tablet 025 2024 Active loratadine (Claritin) 10 MG tabletIndication s:Chronic rhinitis TAKE 1 TABLET BY MOUTH EVERY MORNING 90 tablet 3 024 2024 Discontinued chlorthalidone (Hygroton) 25 MG tabletIndication s:HTN (hypertension), benign TAKE 1 TABLET BY MOUTH EVERY MORNING 90 tablet 2024 Discontinued ezetimibe (Zetia) 10 MG tablet Take 1 tablet (10 mg) by mouth in the morning. 90 tablet 2024 Discontinued cholecalciferol (D3 Super Strength) 50 MCG (1999) capsule TAKE 1 CAPSULE BY MOUTH EVERY MORNING 90 capsule 024 2024 Discontinued oxyCODONE-acetam inophen (Percocet) 10-325 MG tabletIndication s:Achilles tendinitis of right lower extremity TAKE 1 TABLET BY MOUTH EVERY TWELVE HOURS NEEDED FOR SEVERE PAIN 56 tablet 2024 Discontinued(R eorder (will not trigger notification to Pharmacy)) Active Problems Problem Noted Date Diagnosed Date intermediate current use of opiate analgesic 2023 Overview (08/15/2024): Medication: Percocet 10-325mg Q12H PRN Indication: cervical spondylosis, bilat knee OA Last [employer] Agreement: 12/08/23 Tier III (MANAGER PROFESSIONAL DEVELOPMENT visit every 4-6 months) Assessment & Plan (08/14/2024 5:48 PM EST): Timeline: -12/08/23: Indv RN visit, Utox/pill count WNL -02/28/24: Group visit, Utox/pill count WNL -03/27/24: Group visit, Utox/pill count WNL -06/12/24: Group visit, Utox/pill count WNL -08/14/24: Group visit, Utox/pill count WNL -Good engagement and participation with Group Medical Visit model -Encouraged multifactorial approach to pain control including pharm and non- pharm modalities -UTOX and Pill count as expected Chronic epigastric pain 02/14/2024 Assessment & Plan (02/14/2024 2:43 PM EDT): - most likely GERD associated to hiatal hernia - recommended to have small infraction meals - refer back to GI Hiatal hernia with GERD 02/14/2024 Assessment & Plan (02/14/2024 6:33 PM EDT): - status post EGD [place] [address] Mills - pt has lost significant amount of weight since - continue PPI management - refer to GI Screening mammogram for breast cancer 12/23/2023 Routine Papanicolaou smear 12/23/2023 Acute nausea with nonbilious vomiting 10/20/2023 Assessment & Plan (10/20/2023 1:17 PM EST): 2/2 to gastroenteritis Gastroenteritis 10/20/2023 Assessment & Plan (10/20/2023 1:18 PM EST): Most likely viral. Recommended to be on a clear liquid diet today. Start sucralfate 1g TID Ac meals + ondansetron Advance to soft diet as tolerated Order labs to r/o electrolyte imbalance Candidiasis of perineum 07/29/2023 Assessment & Plan (07/29/2023 10:30 AM EST): Use Lotrimin cream BID Counseled regarding tight control of DM, keep area clean and dry Osteoarthritis of foot joint 03/30/2023 Osteoarthritis of right ankle and foot Bifascicular block 02/03/2023 Sepsis due to Escherichia coli 02/03/2023 Urinary tract infectious disease 02/03/2023 Gram-negative bacteremia 02/03/2023 Focal pyelonephritis 02/03/2023 Cough 02/03/2023 COVID-19 02/03/2023 Exacerbation of intermittent asthma 02/03/2023 Dietary counseling 12/22/2022 Assessment & Plan (12/22/2022 10:37 AM EDT): Pt with weight gain over the past year after renal abscess recommened to schedule appointment to fu with dietitian from weight management program with [facility] ct scan to fu renal abcess is pending Exercise counseling 12/22/2022 Encounter for preventive health examination 10/2022 Assessment & Plan (12/23/2023 3:17 PM EDT): Discussed with patient re increase fresh fruit and vegetable intake. Counseled re moderate exercise as tolerated, up to 20min/d Patient feels safe at home. PAP smear: Overdue , patient wants to be referred to MASTER FIRE CONTROL TECHNICIAN. Mammogram Overdue, I will schedule mammo. Bone density test: UTD, next one due on 2027 Eye exam: Reportedly UTD. Obtain eye exam OV note from 09/2023 CRC screen: UTD, next one due on 2028. Lipids/FBS: UTD Vaccinations: Covid and PCV 20 reportedly UTD, she will bring IZ record from pharmacy. Advised to get RSV at pharmacy. Dental visit: Over due, I gave her info re dental clinic on the area. Assessment & Plan (11/18/2022 1:54 PM EST): Discussed with patient re increase fresh fruit and vegetable intake. Counseled re moderate exercise as tolerated, up to 20min/d Patient feels safe at home. PAP smear: Pt agreed to be scheduled for PAP smear, will refer to gas plumbing inspector Mammogram: up to date, next one due 09/2023 Bone density test: TBO Eye exam: up to date, next one due January 2023 CRC screen: up to date, next one due 2023 Lipids/FBS: up to date, Due July 2023 Vaccinations: Td booster today, other vaccine and iz are up to date. Pt will get other iz titers. Stress incontinence of urine 11/18/2022 Assessment & Plan (11/18/2022 2:20 PM EST): Use sanitary pads, I will send a prescription Drug-induced constipation 11/18/2022 Assessment & Plan (11/18/2022 2:21 PM EST): Counseled increase fiber in diet, use zofran PRN with nausea associated to constipation. Ankle enthesopathy 10/20/2022 Chronic ankle pain 10/20/2022 Hyperlipidemia 10/20/2022 Obesity 10/20/2022 Assessment & Plan (10/20/2022 2:29 PM EST): Pt has put on 20 pounds since last appointment. She has started to make better food choices. We will right a prescription for new DM shoes and inserts so hopefully she will start doing increased activity. Osteochondroma of bone 10/20/2022 Hiatal hernia 10/20/2022 Assessment & Plan (10/20/2022 2:32 PM EST): S/p EGD 2015. Symptoms seem to be exacerbated after she has been putting on more weight. Counseled regarding having smaller in fraction meals, decrease calorie intake, post-prandial ambulation for at least 15 minutes and avoid lying down post- prandial. Information regarding her condition was shared with the patient today. FU in 3 months. Heel pain 12/29/2018 Assessment & Plan (02/14/2024 6:32 PM EDT): - It could be related to calcaneal spur , will do X-Ray - if X-ray is normal, will have her f/u with orthopedics regarding Achilles tendinitis Disorder of vein 12/29/2018 Achilles tendinitis 11/17/2018 Assessment & Plan (07/29/2023 10:27 AM EST): S/p surgery, doing well on a walking surgical shoe Fu w/ orthopedics Cont percocet BID + tylenol in between Reminded Pt to be compliant with [employer]EL[employer] Tubular adenoma of colon 07/17/2018 Calcaneal spur 07/05/2017 Knee pain 05/19/2017 Right bundle branch block 12/10/2013 Asthma 02/11/2012 Carpal tunnel syndrome 02/11/2012 Gastroesophageal reflux disease 02/11/2012 Assessment & Plan (10/20/2023 1:15 PM EST): Probably exacerbated by gastroenteritis and wt gain Continue pantoprazole daily and counseled regarding wt reduction Assessment & Plan (03/31/2023 12:02 PM EDT): Pt has underlying hiatal hernia unclear if symptoms are exacerbated due to metformin, trulicity, crestor, or narcotics. She will hold metformin for the next 3 days and crestor for 1 week, fu with me PRN Counseled regarding small in fraction meals Continue omeprazole daily FU with bariatric surgeon Assessment & Plan (12/22/2022 11:04 AM EDT): Counseled to take pantoprozole on empty stomach counseled regarding weight reduction, decrease meal portions and encouraged ambulation after meals Primary hypertension 02/11/2012 Assessment & Plan (02/14/2024 2:54 PM EDT): - uncontrolled - no medication changes - Counseled re low salt diet/increase moderate physical activity. - Check home BP BIW and prn CP/AZEVEDO/DEL RIO - Non smoking patient. - f/u in 4 weeks Assessment & Plan (12/23/2023 3:11 PM EDT): Uncontrolled today. Patient reports poor compliance with meds for the past 2w due to her sister being in the hospital in/out. No change in meds Start using CPAP FU BP w me in 3w Assessment & Plan (10/20/2023 1:16 PM EST): Slightly uncontrolled today, probably due to acute Viral GI syndrome No change in medications, recommended hydration FU 4-6 wks Assessment & Plan (07/29/2023 10:28 AM EST): Uncontrolled today, Pt did not take her BP meds Reminded her about medication compliance daily, no changes in medications FU 3 months Will order sleep study to see if she needs to restart using CPAP Assessment & Plan (02/07/2023 1:03 PM EDT): Most likely overall controlled, uncontrolled today due to white coat HTN continue chlorthalidone 25 + amlodipine 10 + anilpril 20 + metoprolol XL 50 encouraged tight control of lipids, fu lipids in 3 months. Counseled re low salt diet/increase moderate physical activity. Check home BP BIW and prn CP/AZEVEDO/DEL RIO Non smoking patient. Assessment & Plan (12/22/2022 11:05 AM EDT): Uncontrolled today. We discussed about pt to lose weight, increase exercise and improve dietary compliance FU BP with RN in 1 month and check at home three times per week. Continue Bystolic 5mg + chlorthalidone 25 mg + metoprolol for now. Pt to bring medication box at next appointment, she may not need to be on both metoprolol and bystolic Pure hypercholesterolemia 02/11/2012 Assessment & Plan (12/22/2022 10:38 AM EDT): Worsening since last year, likely related to uncontrolled DM Continue crestor same dose We discussed re rx options. She wants to be more strict with life style modifications. Recommended moderate amount of exercise and increased consumption of fruit, vegetables, fish and high fiber foods. We discussed about avoiding consumption of highly saturated fats or trans fats. FU lipids in 6 months Type 2 diabetes mellitus wit h hyperglycemia, without long-term current use of insulin 02/11/2012 Assessment & Plan (02/14/2024 2:56 PM EDT): Uncontrolled. A1c is improving Increase Lantus to 15 units. Continue Metformin and Trulicity same dose for now due to GI issues Counseled re more frequent low calorie/carb meals. Check fgstk BID Encouraged physical activity as tolerated. FU in 4 weeks Assessment & Plan (12/23/2023 3:13 PM EDT): Probably still uncontrolled. Will fu in 2-3w with glucometer. Continue Lantus + Metformin + Trulicity Assessment & Plan (10/20/2023 1:16 PM EST): Uncontrolled today, probably result to wt gain and current gastroenteritis Continue Metformin + Trulicity FU 6 wks Assessment & Plan (07/29/2023 10:29 AM EST): Much better controlled She will stick to Lantus 12 units /daily, cont Trulicity 3mg + metformin Counsleed regarding 3-4 small meals per day, low calorie FU 3 months Recieveid flu IZ today and I advised her to have Covid IZ at our walk-in Covid IZ clinic Assessment & Plan (03/31/2023 12:02 PM EDT): A1C is improving, not at goal yet. FU with Dr. Morales in 2 weeks, no change in medications Will temporarily homd metformin to r/o side effects and fuw with me in 3 months Assessment & Plan (02/07/2023 1:02 PM EDT): A1C is improving, still uncontrolled. increase lantus to 12 units only and FU with Dr. Morales next month, no other medication changes encouraged to continue with use of dietary modification changes, using protein shakes and water instead of soda fu with me in 3 months Assessment & Plan (12/22/2022 10:36 AM EDT): Uncontrolled, likely related to pt weight gain increase trulicity to 3 mg and FU in 3 months Continue metformin Counseled re more frequent low calorie/carb meals. Check fgstk daily Encouraged physical activity as tolerated. Severe obesity 02/11/2012 Incipient senile cataract 02/11/2012 Obstructive sleep apnea syndrome 10/10/2011 Overview (10/27/2023): Sleep study/titration on 09/10/23 On auto CPAP 5-15 cmH2O Assessment & Plan (12/23/2023 3:09 PM EDT): Sleep study on 08/2023, rx for CPAP sent to [facility] on 11/03/23 Patient will fu with [facility] re provider for CPAP She's aware that she needs to use it every night. Assessment & Plan (07/29/2023 10:28 AM EST): She's been off CPAP for 2+ years after bariatric surgery Order sleep and titration study Assessment & Plan (10/20/2022 2:29 PM EST): She has not been using CPAP since after bariatric surgery, apparently per surgeon recommendation. tells me that she is sleeping well and is rested in the morning. Will follow up next visit and probably send for a new sleep study. Patient still has CPAP machine with her. Osteoarthritis of knee 03/10/2011 Overview (08/14/2024): XR left knee 07/10/24: Mild osteoarthritis. No fracture or joint effusion. Assessment & Plan (06/14/2024 10:33 AM EDT): -Good engagement and participation with Group Medical Visit model -Encouraged multifactorial approach to pain control including pharm and non- pharm modalities -UTOX and Pill count as expected Assessment & Plan (03/27/2024 2:08 PM EDT): -Good engagement and participation with Group Medical Visit model -Encouraged multifactorial approach to pain control including pharm and non- pharm modalities -UTOX and Pill count as expected Assessment & Plan (02/28/2024 2:18 PM EDT): -Good engagement and participation with Group Medical Visit model, today was first visit. -Encouraged multifactorial approach to pain control including pharm and non- pharm modalities -UTOX and Pill count as expected -Interested in trial of multiple topical analgesics after discussion with [facility] Pharmacist - meds sent to pharmacy below. Reviewed med use and SE Assessment & Plan (12/23/2023 3:03 PM EDT): She's getting around with cane and walker, uses percocet as well She has DME at home to prevent falls. I will send rx for recliner per [facility] request, I explain to patient that it will most likely ease the pain temporarily. It is unclear how it will prevent falls or improve morbidity and mortality. Patient will fu with [facility] CM after rx recliner Assessment & Plan (10/20/2022 2:30 PM EST): Counseled to take Tylenol PRN, weight reduction and increase physical activity. She has a cane for ambulation. I will send a prescription for new DM shoes with inserts and FU in 3 months. Renal abscess 03/10/2011 Assessment & Plan (03/31/2023 12:01 PM EDT): Last year, needs a FU CT scan to evaluate residual mass CT scan ordered previously, pt will schedule appointment Assessment & Plan (11/18/2022 2:21 PM EST): s/p antibiotics [address] scan to make sure complete resolution Calcific tendinitis 12/23/2009 Cervical spondylosis 12/18/2009 Overview (08/14/2024): MRI Cervical Spine 12/11/12: ? Mild cervical spondylosis as described, more significant at C5-C6 and C6-C7. Mild to moderate bilateral foraminal narrowing at the C6-C7 level. Assessment & Plan (03/31/2023 12:00 PM EDT): Doing well on oxycodone PRN Continue close fu with [employer]ESSION[employer]ELOP[employer] program We have done [employer] education re opiate side effects including dizziness, somnolence, constipation, urinary retention, dependance, etc. Patient is aware of the importance of avoiding any activity that requires vigilance while taking these meds including driving. We have discussed re avoiding diversion of medication, including giving pills to relatives. Patient is to keep medications in a safe place and is aware that rx will not be replaced if lost or stolen. Resolved Problems Problem Noted Date Diagnosed Date Resolved Date Chronic bronchitis 10/20/2022 Diabetic polyneuropathy 03/10/2011 0504/2024 Assessment & Plan (11/18/2022 2:22 PM EST): Uncontrolled most likely due to weight gain, dietary noncompliance and a long period last year when She had an infection. Counseled to improve lifestyle modifications No change in medications now Order labs and FU with me in 4-6 weeks Assessment & Plan (10/20/2022 2:27 PM EST): DM is optimally controlled. After weight loss A1C has been below 6. I will DC metformin at this time and FU A1C in 3 months. Counseled regarding controlling calorie intake and having smaller in fraction meals. Nonproliferative diabetic retinopathy 03/10/2011 02/14/2024 Encounters Date Type Department Care Team Description 10/17/2024 Orders Only [facility] [address] [place] [address] Teresa Packer FNP 10/16/2024 11:00 AM EST Office Visit [facility] [address] [place] [address] Teresa Packer FNP Primary osteoarthritis of both knees (Primary Dx); Cervical spondylosis; 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; Urinary symptom or sign 10/16/2024 Telephone [facility] [address] [place] [address] Mey Vargas, [employer] MANAGER PROFESSIONAL DEVELOPMENT signed today 10/16/2024 Travel 10/15/2024 Refill [facility] [address] [place] [address] Audrey Calvo MD Achilles tendinitis of right lower extremity 09/28/2024 Refill [facility] [address] [place] [phone] Audrey Calvo MD Chronic rhinitis; HTN (hypertension), benign 09/24/2024 9:00 AM EST Office Visit [facility] [address] [place] [address] Liya Perez Dental calculus (Primary Dx); Dental plaque; Periodontal disease 09/20/2024 Refill [facility] [address] [place] [phone] Audrey Calvo MD Chronic rhinitis 09/06/2024 Telephone [facility] [address] [place] [address] Audrey Calvo MD 09/06/2024 Telephone [facility] [address] [place] [phone] Audrey Calvo MD Med Refill 09/06/2024 Telephone [facility] [address] [place] [address] Audrey Calvo MD Med Refill 09/04/2024 Refill [facility] [address] [place] [address] Audrey Calvo MD Achilles tendinitis of right lower extremity 08/24/2024 Refill [facility] [address] [place] [address] Audrey Calvo MD 08/23/2024 Orders Only GENERIC EXTERNAL DATA DEPARTMENT Provider, Generic External Data 08/22/2024 Telephone [facility] [address] [place] [address] Liya Perez 08/22/2024 Refill [facility] [address] [place] [address] Audrey Calvo MD 08/14/2024 11:00 AM EST Office Visit [facility] [address] [place] [address] Teresa Packer FNP Cervical spondylosis (Primary Dx); Primary osteoarthritis of both knees; intermediate current use of opiate analgesic 08/14/2024 Telephone [facility] [address] [place] [address] Teresa Packer FNP MANAGER PROFESSIONAL DEVELOPMENT: Tier System Update 08/14/2024 Travel 08/13/2024 Telephone [facility] [address] [place] [address] Phu Dang MD 08/10/2024 Telephone [facility] [address] [place] [address] Audrey Calvo MD Durable Medical Equipment 08/09/2024 Refill [facility] [address] [place], [place] [phone] Audrey Calvo MD Achilles tendinitis of right lower extremity 07/30/2024 Telephone [facility] [address] [place] [address] Mena Cowart RN 07/27/2024 10:00 AM EST Office Visit [facility] [address] [place] [address] Liya Perez Dental plaque (Primary Dx); Dental calculus 07/22/2024 Refill [facility] [address] [place] [phone] Audrey Calvo MD Primary hypertension; Diabetic polyneuropathy associated with type 2 diabetes mellitus ([facility]) 07/17/2024 Refill [facility] [address] [place] [address] Audrey Calvo MD from Last 3 Months Immunizations Name Administration Dates Next Due Influenza High-dose Quadriva lent Preservative Free 07/29/2023 Influenza injectable quadriv alent IIV4 with preservative 07/05/2017,07/11/2015 Influenza injectable quadriv alent preservative free 08/02/2022,09/17/2021,07/24/2020,06/15,02/02/2019 Influenza, High Dose Seasona l, Preservative Free 07/16/2024 Influenza, IIV3, injectable 06/27/2014 Influenza, Split (incl. suraj fied surface antigen) 2015,05/25/2013,05/19/2012 Pfizer Covid-19 Vaccine 12+ Bivalent 08/02/2022 Pneumococcal Conjugate PCV 13 10/27/2021 Pneumococcal Polysaccharide PPSV23 04/01/2017, TD (adult), 2 Lf tetanus tox oid, preservative free, adsorbed 11/18/2022 Tdap 05/25/2013 Zoster, live 05/25/2019 Social History Tobacco Use Types Packs/Day Years Used Date Smoking Tobacco: Never Passive Smoke Exposure: Never Smokeless Tobacco: Never Tobacco Cessation:Counseling Given: Not Answered Alcohol Use Standard Drinks/Week Comments Never 0 [...] Orientation Straight 07/19/2022 10 :17 AM EDT Last Filed Vital Signs Vital Sign Reading Time Taken Comments Blood Pressure 158/86 09/24/2024 9:09 AM EST Pulse 69 07/10/2024 8:36 AM EDT Temperature 35.7 ??C (96.2 ??F) 07/10/2024 8:36 AM ED T Respiratory Rate 17 07/10/2024 8:36 AM EDT Oxygen Saturation 98% 07/10/2024 8:36 AM EDT Inhaled Oxygen Concentration - - Weight 83.9 kg (185 lb) 07/10/2024 8:36 AM EDT Height 162.6 cm (5' 4 ) 02/14/2024 1:26 PM EDT Body Mass Index 31.76 02/14/2024 1:26 PM EDT Plan of Treatment Upcoming Encounters Date Type Department Care Team (Late st Contact Info) Description 11/08/2024 11:00 AM EST Office Visit [facility] [address] [place] [address] Lyia Perez 12/11/2024 11:00 AM EDT Office Visit [facility] [address] [place] [address] Health Maintenance Due Date Last Done Comments CT Colonography 1955 FIT DNA/Cologuard 1955 FIT 1955 FOBT 1955 Sigmoidoscopy 1955 Eye Exam 1967 Hepatitis C Screening 1975 RSV Patients and Patients Aged 60 years or older (1 - Risk 60-74 years 1-dose series) 2017 Diabetes: Urine Protein Screening 03/02/2022 03/02/2021, 08/08/2020 Pneumococcal Vaccine: 50+ Years (3 of 3 - PPSV23 or PCV20) 10/27/2022 10/27/2021, 04/01/2017, 09/05/2002 Zoster Vaccines (3 of 3) 02/17/2024 12/23/2023, 09/02/2019 Diabetes: Hemoglobin A1C 05/16/2024 024, 10/20/2023, 07/29/2023, Additional history exists COVID-19 Vaccine ( season) 2024 08/02/2022, 03/05/2021, 02/05/2021 SDOH Screening 12/13/2024 12/14/2023 Alcohol/Substance Use Screening 12/22/2024 12/23/2023 Diabetes: Foot Exam 12/22/2024 12/23/2023, 12/23/2023, 12/23/2023, Additional history exists Mammogram 01/16/2025 01/17/2024, 10/21, 11/09/2022, Additional history exists Dental Oral Exam 01/25/2025 07/27/2024, , 03/06/2019, Additional history exists Dental Prophylaxis 01/25/2025 07/27/2024, 01/31/2019 Depression Screening 02/13/2025 02/14/2024, 02/14/20 24 Lipid Panel 06/29/2025 06/29/2024, 12/19, 12/20/2022, Additional history exists Dental X-Ray: Bitewings 07/28/2025 07/27/20 24, 09/05/2019, 08/15/2018 Tobacco Screening 09/24/2025 09/24/2024 Dental X-Ray: Full Mouth 07/28/2027 07/27/2024, 07/21 Colonoscopy 08/28/2029 08/28/2019 Colorectal Cancer Screening 08/28/2029 DTaP/Tdap/Td Vaccines (3 - Td or Tdap) 11/18/2032 11/18/2022, 05/25/2013 Influenza Vaccine Completed 07/16/2024, , 08/02/2022, Additional history exists HIB Vaccines Aged Out No longer eligi ble based on patient's age to complete this topic HPV Vaccines Aged Out No longer eligi ble based on patient's age to complete this topic Hepatitis A Vaccines Aged Out No long er eligible based on patient's age to complete this topic Hepatitis B Vaccines Aged Out No long er eligible based on patient's age to complete this topic IPV Vaccines Aged Out No longer eligi ble based on patient's age to complete this topic Meningococcal Vaccine Aged Out No ivan rosa elena eligible based on patient's age to complete this topic RSV under 20 months Aged Out No longe r eligible based on patient's age to complete this topic Rotavirus Vaccines Aged Out No longer eligible based on patient's age to complete this topic Procedures Procedure Name Priority Date/Time Associated Diagnosis Comments URINALYSIS, COMPLETE, WITH REFLEX TO CULTURE Routine 10/17/2024 12:01 PM EST BASIC METABOLIC PANEL Routine 10/17/2024 12:01 PM EST Urinary symptom or sign POCT CHIQUITA-14 URINE DRUG SCREEN Routine 10/16/2024 2:02 PM EST Primary osteoarthritis of both knees ADJUNCTIVE GENERAL SERVICES - PROFESSIONAL VISITS - CASE PRESENTATION, SUBSEQUENT TO DETAILED AND EXTENSIVE TREATMENT PLANNING Routine 09/24/2024 9:00 AM EST ORAL HYGIENE INSTRUCTIONS Routine 09/24/2024 9:00 AM EST Dental calculus Dental plaque Periodontal disease LL PERIODONTAL SCALING AND ROOT PLANING - 4 OR MORE TEETH PER QUADRANT Routine 09/24/2024 9:00 AM EST Dental calculus Dental plaque Periodontal disease UL PERIODONTAL SCALING AND ROOT PLANING - 1 TO 3 TEETH PER QUADRANT Routine 09/24/2024 9:00 AM EST Dental calculus Dental plaque Periodontal disease GROSS AND MICROSCOPIC LEVEL 3 Routine 08/23/2024 10:22 AM EST POCT CHIQUITA-14 URINE DRUG SCREEN Routine 08/14/2024 1:48 PM EST Primary osteoarthritis of both knees 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 ORAL HYGIENE INSTRUCTIONS Routine 07/27/2024 10:00 AM EST Dental plaque Dental calculus DIAGNOSTIC - DIAGNOSTIC IMAGING - INTRAORAL - COMPREHENSIVE SERIES OF RADIOGRAPHIC IMAGES Routine 07/27/2024 10:00 AM EST PROPHYLAXIS - ADULT Routine 07/27/2024 1 0:00 AM EST Dental plaque Dental calculus ADJUNCTIVE GENERAL SERVICES - PROFESSIONAL VISITS - CASE PRESENTATION, SUBSEQUENT TO DETAILED AND EXTENSIVE TREATMENT PLANNING Routine 07/27/2024 10:00 AM EST PERIODIC ORAL EVALUATION - ESTABLISHED PATIENT Routine 07/27/2024 10:00 AM EST 4 O COMPOSITE FILLING Routine 07/27/2024 12:00 AM EST LIPID PANEL WITH REFLEX TO DIRECT LDL Routine 06/29/2024 8:54 AM EDT Primary hypertension POCT GLYCATED HEMOGLOBIN, TOTAL Routine 02/14/2024 1:28 PM EDT Type 2 diabetes mellitus with hyperglycemia, without long-term current use of insulin ([facility]) BI MAMMOGRAM SCREENING TOMOSYNTHESIS BILATERAL Routine 01/17/2024 9:18 AM EDT Screening mammogram for breast cancer ZZZ HISTORICAL MICROALBUMIN, RANDOM Routine 03/02/2021 1:58 PM EDT HM COLONOSCOPY Routine 08/28/2019 8:20 AM EST from Last 3 Months or Most Recently Relevant to Health Maintenance Results * (ABNORMAL) Urinalysis, Complete, with Reflex to Culture (10/17/2024 12:01 PM EST) Color Urine Yellow [facility] Appearance Urine Cloudy [facility] PH 7.0 5.0 - 9.0 [facility] Glucose Urine UA 500(A) Negative mg/dL [facility] Urine Blood Negative Negative [facility] Specific [place] - Urine 1.020 1.005 - 1.025 [facility] Urine Protein Negative Neg-Trace mg/dL [facility] Urine Ketones Negative Negative mg/dL [facility] Nitrite Urine Positive(A) Negative [facility] Leukocyte Esterase Urine Small (1+)(A) Negative [facility] RBC Urine 0-2 0 - 2 /HPF [facility] Urine WBC 21-50(A) 0 - 5 /HPF [facility] Urine Squamous Epithelial Cell 3-5 0 - 2 /HPF [facility] Urine Bacteria 4+ None Seen [facility] Hyaline Casts, Urine 0-2 0 - 2 /LPF [facility] 10/17/2024 12:0 1 PM EST 10/17/2024 1:11 PM EST Narrative [facility] - 10/17/2024 1:31 PM EST Urine, Clean Catch Teresa Packer [facility] URINE ORDERABLES Final Res ult Performing Organization Address [facility] [address] [facility] Co de Phone Number [facility] [address] [place] [phone] * (ABNORMAL) Basic Metabolic Panel (10/17/2024 12:01 PM EST) Sodium 142 135 - 145 mmol/L [facility] Potassium 4.6 3.3 - 5.1 mmol/L [facility] Comment:Slight Hemolysis.Int erpret result with caution. Chloride 106 96 - 108 mmol/L [facility] Carbon Dioxide 28 22 - 29 mmol/L [facility] Anion Gap 13 12 - 20 [facility] Urea Nitrogen (BUN) 9 9 - 16 mg/dL [facility] Creatinine, Serum 0.68 0.5 - 1.4 mg/dL [facility] Estimated Glomerular Filt Rate >60 [facility] Comment:Chronic Kidney Disea se: Estimated GFR < 60 mL/min/[id number] Kidney Disease: Estimated GFR < 15 mL/min/1.73m2 Glucose 124(H) 60 - 115 mg/dL [facility] Calcium 9.7 8.4 - 10.2 mg/dL [facility] Blood Venous blood specimen / Unknown 10/17/2024 12:01 PM EST 10/17/2024 1:40 PM EST Teresa Packer [facility] BLOOD ORDERABLES Final Res ult Performing Organization Address [facility] [address] [facility]/ZIP Co de Phone Number [facility] [address] [place] [phone] * POCT CHIQUITA-14 Urine Drug Screen (10/16/2024 2:02 PM EST) Only the most recent of2 resultswithin the time period is included. Oxycodone Screen, Urine Positive Urine Urine specimen obtained by clean catch procedure / Unknown 10/16/2024 2:02 PM EST Mey Oliveira, RN - 10/16/2024 2:02 PM EST UTOX cup Lot#[id number] Exp. 06/13/26 Internal Pass Control Teresa Packer [employer] POINT OF CARE TEST ENTER/EDIT ORDERABLES Final Result * Gross and Microscopic Level 3 (08/23/2024 10:22 AM EST) 08/23/2024 10:2 2 AM EST 08/24/2024 8:13 AM EST [facility] - 08/27/2024 11:00 AM EST ----- ------- Name: Kalyani Rogers I ? Age/Sex: 69/F ? : 1955 Unit#: [id number] ?? Attend Dr: Kalia Burleson MD ?Re08/23/24 ?Status: DEP REF ? Location: HO.LNP ?Disch: ? ----- ------- SPEC : [id number] ? RECD: 08/24/24 ? STATUS: ??SOUT ? REQ NUM: [id number] ? LISA: 08/23/24 ? SUBM DR: Kalia Burleson MD ? ENTERED: ??08/24/24 ?SP TYPE: Surgical ? OTHR DR: Audrey Calvo MD ? ORDERED: ??Gross Micro L3 ? Diagnosis ?? Soft tissue, right leg, excision: ?? -Nodular fat necrosis with fibrosis, minimal inflammation and hemosiderin (suggesting ?? previous trauma or traumatized lipoma). ?? -Benign skin. ?Clinical History Lipoma of right leg ?Microscopic Description Microscopic sections reviewed. ? Material Received ?? Lipoma of right leg ? Gross Description Received in formalin labeled ?lipoma right leg? a 0.6 x 0.5 irregular-elliptical fragment of de jesus skin excised to a maximum depth of 0.2 cm along with a 0.6 x 0.4 x 0.4 cm rubbery, firm de jesus-white nodule. ??The margins are inked and the fragment of skin is bisected to reveal unremarkable rehman-white fibrous dermal tissue. ??The nodule is bisected to reveal a well- circumscribed, non-encapsulated nodule of slightly gritty de jesus-white fibrous tissue. ??The specimen is entirely submitted in a cassette labeled A. MANISHAS Copies To: ?? Audrey Calvo MD ?? [employer] ?? [address] ?? [place] [address] ?? [phone] ?? Kalia Burleson MD ?? [facility] ?? [address] [facility] ?? [place] ?? [phone] ? CONTINUED ON NEXT PAGE ----- ------- Name: Kalyani Rogers I ? Age/Sex: 69/F ? : 1955 Unit#: [id number] ?? Attend Dr: Kalia Burleson MD ?Re08/23/24 ?Status: DEP REF ? Location: HO.LNP ?Disch: ? ----- ------- SPEC : [id number] ? RECD: 08/24/24 ? STATUS: ??SOUT ? REQ NUM: [id number] ? LISA: 08/23/24-1021 ? SUBM DR: Kalia Burelson MD ? ENTERED: ??08/24/24 ?SP TYPE: Surgical ? OTHR DR: Audrey Calvo MD ? ORDERED: ??Gross Micro L3 ? ----- ------- Signed (signature on file) Sally Avina 08/27/24 1100 ? ----- ------- ? END OF REPORT ? us Generic External Data Provider LAB CYTOLOGY ORDE TUCKERLES Final Result Performing Organization Address [facility] Co de Phone Number [facility] [address] [place] [address] [phone] * Lipid Panel with Reflex to Direct LDL (06/29/2024 8:54 AM EDT) Triglycerides 66 <150 mg/dL [facility] Comment:Desirable Triglyceri de: less than 150 mg/dLBorderline High Triglyceride 150-199 mg/dLHigh Triglyceride: 200-499 mg/dLVery High Triglyceride: greater than or equal to 5OO mg/dL Cholesterol 139 <200 mg/dL [facility] Comment:Desirable Cholestero l: less than 200 mg/dLBorderline High Cholesterol: 200-239 mg/dLHigh Cholesterol: greater than 239 mg/dL LDL Cholesterol Calculated 71 <100 mg/dL [facility] Comment:Desirable LDL: less than 100 mg/dLNear Optimal/Above Optimal LDL: 110- 129 mg/dLBorderline High LDL: 130-159 mg/dLHigh LDL: 160-189 mg/dLVery High LDL: greater than or equal to 190 mg/dL HDL Cholesterol 55 >40 mg/dL [facility] Comment:Desirable HDL: great er than 40 mg/dL Note: This HDL assay may give artificially low results in patients with liver disease. Blood 06/29/2024 8:54 AM EDT 06/29/2024 11:09 AM EDT us Audrey Calvo MD LAB BLOOD ORDERABLES Fin al Result Performing Organization Address City/[facility]/ZIP Co de Phone Number [facility] [address] [place] [address] [phone] * (ABNORMAL) POCT HGB A1C (02/14/2024 1:28 PM EDT) Hemoglobin A1C 7.7(A) 4.0 - 6.0 % QC Media Lot # [id number] Lot# Expiration Date Blood 02/14/2024 1:28 PM EDT us Audrey Calvo MD POINT OF CARE TEST ENTER /EDIT ORDERABLES Final Result * BI Mammogram Screening Tomosynthesis Bilateral (01/17/2024 9:18 AM EDT) Anatomical Region Laterality Modality Breast Bilateral Mammography 01/17/2024 9:18 AM EDT Narrative 02/12/2024 7:16 AM EDT ? [facility] ? [address] ?[place], [place] [address] ? Mammography Report ? Signed ? Patient: Sue,Kalyani I ?MR#: [id number] ?? 83 ? : 1955 ?Acct:[id number] ? Age/Sex: 68 / F ?ADM Date: 01/17/24 ? Loc: HO.MAMMO ? Attending Dr: Audrey Calvo MD ? Ordering Physician: Audrey Calvo MD ?Results: 1Ne ?? gative ? Date of Service: 01/17/24 ?Follow Up: 1 Year From Orig ?? inal Mammogram ? Procedure(s): MM tomosynthesis screening BI ?? Accession Number(s): [id number] ? cc: Audrey Calvo MD ? EXAMINATION: ?? MM SCREENING DIGITAL BREAST TOMOSYNTHESIS, BILATERAL ? CLINICAL INFORMATION: ? Screening. Asymptomatic. ? COMPARISON: ?? Mammography: This study is compared with prior exams dating back to ?? 2018. ? TECHNIQUE: ?? Digital breast tomosynthesis is [...] tomosynthesis screening BI ?? IMPRESSION: ?? No mammographic evidence of malignancy. ? ASSESSMENT: ? BI-RADS BI-RADS 1 - Negative ? RECOMMENDATION: ?? Routine annual mammography screening. ? 1 year F/U ? This examination should not preclude the clinical evaluation of a ?? suspicious palpable abnormality. ? This patient's information was entered into a reminder system with a ?? target due date for their next mammogram. ? Dictated By: ?Vianey George MD ? Signed By: ?<Electronically signed by Vianey George MD in OV> ? 02/12/24 0711 ? DD/ 0918 ? TD/TT: ? Enterprise Application Administrator: ? Procedure Note Ismael, Image - 02/12/2024 [place] [facility] [address] [place] [address] Mammography Report Signed Patient: Kalyani Rogers [facility]#: [id number] [birth year] : 7Acct:[id number] Age/Sex: 68 / FADM Date: 01/17/24 Loc: HO.MAMMO Attending Dr: Audrey Calvo MD Ordering Physician: Adurey Calvo MDResults: 1Ne gative Date of Service: 01/17/24Follow Up: 1 Year From Orig inal Mammogram Procedure(s): MM tomosynthesis screening BI Accession Number(s): [id number] cc: Audrey Calvo MD EXAMINATION: MM SCREENING DIGITAL BREAST TOMOSYNTHESIS, BILATERAL CLINICAL INFORMATION: Screening. Asymptomatic. COMPARISON: Mammography: This study is compared with prior exams dating back to 2018. TECHNIQUE: Digital breast tomosynthesis is performed in both the craniocaudal and mediolateral oblique views along with computer-aided detection (CAD). Synthesized 2D images are generated from the tomosynthesis. FINDINGS: The breasts are almost entirely fatty (ACR BI-RADS breast composition Category a). There are no significant masses, abnormal calcifications, or other abnormalities. MM/MM tomosynthesis screening BI IMPRESSION: No mammographic evidence of malignancy. ASSESSMENT: BI-RADS BI-RADS 1 - Negative RECOMMENDATION: Routine annual mammography screening. 1 year F/U This examination should not preclude the clinical evaluation of a suspicious palpable abnormality. This patient's information was entered into a reminder system with a target due date for their next mammogram. Dictated By: Vianey George MD Signed By: <Electronically signed by Vianey George MD in OV> 02/12/24 0711 DD/ 0918 TD/TT: Enterprise Application Administrator: Audrey Calvo MD IMG BI PROCEDURES Final Result * MICROALBUMIN, RANDOM (03/02/2021 1:58 PM EDT) Creatinine Urine 30.13 mg/dL [facility] Microalbum/Creati nine Ratio Ur 43.1 ug/mg cr [facility] Comment: ?Albumin/Creatinine Ratio Reference Ranges: ? Normal: < 30 ug/mg creatinine ? Microalbuminuria: ??30 - 300 ug/mg creatinine Clinical Albuminuria: ??> 300 ug/mg creatinine Microalbumin Urine 13.0 mg/L [facility] 03/02/2021 1:58 PM EDT us Historical Provider HISTORICAL/NON ORDERABLE LABS Final Result [facility] [address] [place] [address], * Hm Colonoscopy (08/28/2019 8:20 AM EST) us Historical Provider HEALTH MAINTENANCE Final Result from Last 3 Months or Most Recently Relevant to Health Maintenance Insurance [facility] - [facility] [address] [place] [phone] Care Teams Center Human Resources Manager Relationship Specialty Start Date End Date Audrey Calvo MD [address] [place] [address] [place] [address] PCP - General Family Medicine 05/09/17
--- OUTSIDE RECORDS SUMMARY | 2024-10-17 14:24 | XMS_ITS | Encounter Summary ---
Author Organization [employer] Address [address] [place] [address] [address] [place] [address] Care Team Providers Care Manpower Development Specialist Manager Name Role Phone Audrey Calvo MD Primary Care Provider + Encounter Details Date Type Department Care Team (Late st Contact Info) Description 09/27/2022 Orders Only [facility] MED & PEDS [address] [place] [address] Emi Gill LPN Social History Tobacco Use [...] Description 11/08/2024 11:00 AM EST Office Visit [facility] ADULT DENTAL [address] [place] [address] Liya Perez 12/11/2024 11:00 AM EDT Office Visit [facility] MEDICINE [address] [place] [address] documented as of this encounter Visit Diagnoses Not on filedocumented in this encounter Care Teams Manpower Development Specialist Manager Relationship Specialty Start Date End Date Audrey Calvo MD [address] [place] [address] PCP - General Family Medicine 05/09/17 documented as of this encounter
--- OUTSIDE RECORDS SUMMARY | 2024-10-17 14:24 | XMS_ITS | Encounter Summary ---
Author Organization [employer] Address [address] [place] [address] Care Team Providers Care Personal Care Service Provider Name Role Phone Audrey Calvo MD Primary Care Provider + Encounter Details Date Type Department Care Team ([facility] st Contact Info) Description 09/06/2024 Telephone [facility] MEDICINE [address] [place], [place] [phone] Audrey Calvo MD [address] [place], [place] [phone] Social History Tobacco Use Types Packs/Day Years [...] Description 11/08/2024 11:00 AM EST Office Visit [facility] ADULT DENTAL [address] [place] [address] Liya Perez 12/11/2024 11:00 AM EDT Office Visit [facility] [address] [place] [address] documented as of this encounter Visit Diagnoses Not on filedocumented in this encounter Additional Health Concerns Assessment Noted Time PHQ-9 Depression Total Score: 3 02/14/20 24 1:55 PM EDT documented as of this encounter Care Teams Personal Care Service Provider Relationship Specialty Start Date End Date Audrey Calvo MD [address] [place] [address] PCP - General Family Medicine 05/09/17 documented as of this encounter
--- OUTSIDE RECORDS SUMMARY | 2024-10-17 14:24 | XMS_ITS | Encounter Summary ---
Author Organization [employer] Address [address] [place] [address] Care Team Providers Care Banking Consultant Name Role Phone Audrey Calvo MD Primary Care Provider + Encounter Details Date Type Department Care Team (Late st Contact Info) Description 10/19/2023 Orders Only [facility] CH[facility] MED & PEDS [address] [place], [place] [phone] Nila Gallardo LPN Social History Tobacco Use Types Packs/Day Years Used Date Smoking Tobacco: Never Passive Smoke Exposure: Never Smokeless Tobacco: Never Alcohol Use Standard Drinks/Week Comments Never 0 (1 standard drink = 0.6 oz pur e alcohol) Depression Answer Date Recorded Patient Health Questionnaire-9 Score 0 12/22/2022 Housing Stability Answer Date Recorded What is your housing situation today? I have [employer] [facility] 07/04/[address] you [...] Description 11/08/2024 11:00 AM EST Office Visit [facility] ADULT DENTAL [address] [place] [address] Liya Perez 12/11/2024 11:00 AM EDT Office Visit [facility] MEDICINE [address] [place] [address] documented as of this encounter Visit Diagnoses Not on filedocumented in this encounter Additional Health Concerns Assessment Noted Time PHQ-9 Depression Total Score: 0 12/23/19 23 9:08 AM EDT documented as of this encounter Care Teams Banking Consultant Relationship Specialty Start Date End Date Audrey Calvo MD [address] [place] [address] PCP - General Family Medicine 05/09/17 documented as of this encounter
== END 2024-10-17 12:00 | disposition home or self-care (01) ==
LOC: HO.HHCL 11:59
PROVIDERS: Visit Provider Registered Nurse
DX: R39.9 Unspecified symptoms and signs involving the genitourinary system (principal)
CPT/HCPCS: 36415; 80048; 81001; 87086; 87088; 87186

== ENCOUNTER → 2024-10-23 12:52 | Outpatient (BNVA) | payer OTHER, SELFPAY | PROVIDERS: PCP Internal Medicine; Visit Provider Nurse Practitioner Family | DX: K59.01 Slow transit constipation (principal); K21.9 Gastro-esophageal reflux disease without esophagitis; R11.0 Nausea; R14.0 Abdominal distension (gaseous); R10.13 Epigastric pain | CPT/HCPCS: 99212 ==

== ENCOUNTER 2024-11-13 08:48 | Outpatient (REF) | payer OTHER, SELFPAY ==
--- OUTSIDE RECORDS SUMMARY | 2024-11-13 17:30 | XMS_ITS | Encounter Summary ---
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 Other FPC current use of opiate analgesic Overview Medication: Percocet 10-325mg Q12H PRN Indication: cervical spondylosis, bilat knee OA Last PHYSICAL ANTHROPOLOGIST Agreement: 10/16/24 Tier III (PHYSICAL ANTHROPOLOGIST visit every 4-6 months) Current Assessment & [...] Vargas RN - 10/16/2024 11:00 AM EST PHYSICAL ANTHROPOLOGIST auto phone installer: PDMP reviewed today. Last fill date: 09/10/24 Percocet 10mg count was 56, anticipated 56 to be remaining. UTOX completed. Positive for OXY, Negative for AMP, BAR, BUP, BZO, TERE, FTY, MDMA, MET, MOP, MTD, PCP, TCA, THC. UTOX as expected. PHYSICAL ANTHROPOLOGIST Agreement signed today BPI updated today. Pain severity score of 8, activity interference score of 5.6. Previous BPI completed 06/12/24 with pain severity score of 7, activity interference score of 5. Will update PCP with BPI scoring. 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 Chloride 106 96 - 108 mmol/L [facility] Carbon Dioxide 28 22 - 29 mmol/L [facility] Anion Gap 13 12 - 20 [facility] Urea Nitrogen (BUN) 9 9 - 16 mg/dL [facility] Creatinine, Serum 0.68 0.5 - 1.4 mg/dL [facility] Estimated Glomerular Filt Rate >60 [facility] Comment:Chronic Kidney Disea se: Estimated GFR < 60 mL/min/1.71h1Orhfqz Kidney Disease: Estimated GFR < 15 mL/min/1.73m2 Glucose 124(H) 60 - 115 mg/dL [facility] Calcium 9.7 8.4 - 10.2 mg/dL [facility] Blood Venous blood specimen / Unknown 10/17/2024 12:01 PM EST 10/17/2024 1:40 PM EST Teresa MUSA LAB BLOOD ORDERABLES Final Res ult [facility] [address] [place] [phone] * POCT CHIQUITA-14 Urine Drug Screen (10/16/2024 2:02 PM EST) Oxycodone Screen, Urine Positive Urine Urine specimen obtained by clean catch procedure / Unknown 10/16/2024 2:02 PM EST Mey Oliveira RN - 10/16/2024 2:02 PM EST UTOX cup Lot#[id number] Exp. 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
--- OUTSIDE RECORDS SUMMARY | 2024-11-13 17:30 | XMS_ITS | Encounter Summary ---
Author Organization [employer] Address [address] 7t [place] [address] Care Team Providers Care Laboratory Geneticist Name Role Phone Audrey Calvo MD Primary Care Provider + Reason for Visit * Reason Comments Med Refill Encounter Details Date Type Department Care Team ([facility] st Contact Info) Description 07/06/2023 Refill [facility] [address] [place], [place] [phone] Audrey Calvo MD [address] [place] [address] Lumbago with sciatica, unspecified side Social History [...] 12/11/2024 11:00 AM EDT Office Visit [facility] [address] [place] [address] 12/26/2024 2:15 PM EDT Office Visit [facility] [address] [place] [address] Audrey Calvo MD [address] [place] [phone] 12/27/2024 9:00 AM EDT Office Visit [facility] ADULT DENTAL [address] [place] [phone] Liya Perez documented as of this encounter Visit Diagnoses Diagnosis Lumbago with sciatica, unspecified side documented in this encounter Additional Health Concerns Assessment Noted Time PHQ-9 Depression Total Score: 0 12/23/19 23 9:08 AM EDT documented as of this encounter Care Teams Laboratory Geneticist Relationship Specialty Start Date End Date Audrey Calvo MD [address] [place] [phone] PCP - General Family Medicine 05/09/17 documented as of this encounter
--- OUTSIDE RECORDS SUMMARY | 2024-11-13 17:30 | XMS_ITS | Encounter Summary ---
Author Organization [email or web address] Address [address] [facility] 7t [place] [address] Care Team Providers Care Cartographic Designer Name Role Phone Audrey Calvo MD Primary Care Provider + Reason for Referral * Consultation (Routine) - Authorized Specialty Diagnoses / Procedures Referred By Contac t Referred To Contact Urology Diagnoses Recurrent UTI Srinivas Prasad MD [address] [place] [address] Phone: tel: fax: [facility] [address] [place] [address] Drive [address] [place], [place] Phone: tel: fax: Referral ID Status Reason Start Date Expiration Date Visits Requested Visits Authorized [id number] Authorized Specialty Services Required 11/13/2024 11/13/2025 1 1 Reason for Visit * Reason Comments UTI Encounter Details Date Type Department Care Team (Late st Contact Info) Description 11/13/2024 10:40 AM EST Office Visit [facility] [address] [place] [address] [phone] Srinivas Prasad MD [address] [place] [address] [phone] UTI symptoms (Primary Dx); Recurrent UTI; UTI due to extended-spectrum beta lactamase (ESBL) producing Escherichia coli Social History Tobacco Use Types Packs/Day Years [...] Sign Reading Time Taken Comments Blood Pressure 148/86 11/13/2024 10:45 AM EST Pulse 67 11/13/2024 10:45 AM EST Temperature 36.8 ??C (98.2 ??F) 11/13/2024 10:[address] Respiratory Rate 16 11/13/2024 10:45 AM EST Oxygen Saturation 98% 11/13/2024 10:45 AM EST Inhaled Oxygen Concentration - - Weight 86.2 kg (190 lb) 11/13/2024 10:45 AM EST Height - - Body Mass Index 32.61 02/14/2024 1:26 PM EDT documented in this encounter Progress Notes * Srinivas Prasad MD - 11/13/2024 10:40 AM EST Subjective Patient ID: Kalyani Rogers is a 69 y.o. female who presents for UTI. Patient comes complaining of a few days of dysuria. She does not have any fever, no chills, no CV angle discomfort. She has a personal history of recurrent UTI. She is postmenopausal. She is not sexually active. She is diabetic but she is not treated with sodium glucose transporter inhibitor. Her last 2 previous urine cultures have grown E. coli with extended spectrum beta-lactamase enzyme. Her E. coli is sensitive to Macrobid and Bactrim. Review of Systems Constitutional: Negative for chills and fever. HENT: Negative for sore throat. Respiratory: Negative for cough, shortness of breath and wheezing. Cardiovascular: Negative for chest pain, palpitations and leg swelling. Gastrointestinal: Negative for abdominal pain. Genitourinary: Positive for dysuria and frequency. Negative for hematuria. Visit Vitals BP (!) 148/86 (BP Location: Left arm, Patient Position: Sitting, BP Cuff Size: Adult) Pulse 67 Temp 98.2 ??F (36.8 ??C) (Temporal) Resp 16 Wt 190 lb (86.2 kg) SpO2 98% BMI 32.61 kg/m?? OB Status Other Smoking Status Never BSA 1.97 m?? Objective Physical Exam Constitutional: General: She is not in acute distress. Appearance: She is not toxic-appearing. Cardiovascular: Rate and Rhythm: Normal rate and regular rhythm. Pulmonary: Effort: No respiratory distress. Abdominal: Tenderness: There is no abdominal tenderness. Latest Reference Range & Units 11/13/24 10:51 Color, UA Yellow Specific [place], UA 1.025 pH, UA 6.5 Ketones, UA Negative Protein, UA Trace Nitrite, UA Negative, None Detected Positive ! RBC, UA Negative, None Detected Negative Clarity, UA Cloudy Glucose, UA Negative Leukocytes, UA Negative, Rare, Trace Trace Bilirubin UA Negative Urobilinogen, UA 0.2 !: Data is abnormal Lab Results Component Value Date GLUCOSE 124 (H) 10/17/2024 NA 142 10/17/2024 K 4.6 10/17/2024 CO2 28 10/17/2024 CL 106 10/17/2024 BUN 9 10/17/2024 CREATININE 0.68 10/17/2024 Assessment/Plan Diagnoses and all orders for this visit: UTI symptoms Comments: I will treat the patient for UTI based on her symptoms, results of urine dipstick. I will choose antibiotic based on the results of most recent urine cultures. She was prescribed Bactrim for 14 days.She recommended drink lots of water. I will recheck urine culture. Referral to urology for recurrent UTIs. Orders: - POCT urinalysis dipstick manually resulted - Culture, Urine, Routine Recurrent UTI - Referral to Urology; Future UTI due to extended-spectrum beta lactamase (ESBL) producing Escherichia coli Other orders - sulfamethoxazole-trimethoprim (Bactrim DS) 800-160 MG tablet; Take 1 tablet by mouth 2 times daily for 14 days. documented in this encounter Plan of Treatment Upcoming Encounters Date Type Department Care Team (Late st Contact Info) Description 12/11/2024 11:00 AM EDT Office Visit [facility] [address] [place] [address] 12/26/2024 2:15 PM EDT Office Visit [facility] [address] [place] [address] Audrey Calvo MD [address] [place] [phone] 12/27/2024 9:00 AM EDT Office Visit [facility] ADULT DENTAL [address] [place] [phone] Liya Perez Scheduled Orders Name Type Priority Associated Diagnoses Orde r Schedule Culture, Urine, Routine Microbiology Routine UTI symptoms Ordered: 11/13/2024 Scheduled Referrals Name Type Priority Associated Diagnoses Orde r Schedule Referral to Urology Outpatient Referral Routine Recurrent UTI Expected: 11/13/2024 (Approximate), Expires: 11/13/2025 documented as of this encounter Procedures Procedure Name Priority Date/Time Associated Diagnosis Comments POCT URINALYSIS DIPSTICK Routine 11/13/2024 10:51 AM EST UTI symptoms documented in this encounter Results * (ABNORMAL) POCT urinalysis dipstick manually resulted (11/13/2024 10:51 AM EST) Color, UA Yellow Comment:Dark Clarity, UA Cloudy Glucose, UA Negative Bilirubin, UA Negative Ketones, UA Negative Spec Grav, UA 1.025 Blood, UA Negative Negative, None Detected pH, UA 6.5 Protein, UA Trace Urobilinogen, UA 0.2 Leukocytes, UA Trace Negative, Rare, Trace Nitrite, UA Positive(A) Negative, None Detected Urine 11/13/2024 10:5 1 AM EST Srinivas Name POINT OF CARE TEST ENTER/EDIT OR DERABLES Final Result documented in this encounter Visit Diagnoses Diagnosis UTI symptoms- Primary Recurrent UTI Urinary tract infection, site not specified UTI due to extended-spectrum beta lactamase (ESBL) producing Escherichia coli documented in this encounter Additional Health Concerns Assessment Noted Time PHQ-9 Depression Total Score: 3 02/14/20 24 1:55 PM EDT documented as of this encounter Care Teams Cartographic Designer Relationship Specialty Start Date End Date Audrey Calvo MD [address] [place] [phone] PCP - General Family Medicine 05/09/17 documented as of this encounter
--- OUTSIDE RECORDS SUMMARY | 2024-11-13 17:30 | XMS_ITS | Encounter Summary ---
Author Organization [employer] [facility] Address [address] [place] [address] 7t [place] [address] Care Team Providers Care Tandem Mill Roller Name Role Phone Audrey Calvo MD Primary Care Provider + Reason for Visit * Reason Comments Med Refill Encounter Details Date Type Department Care Team (Late st Contact Info) Description 03/31/2023 Refill [facility] [address] [place] [address] [phone] Audrey Calvo MD [address] [place] [address] [phone] HTN (hypertension), benign Social History Tobacco Use [...] Description 12/11/2024 11:00 AM EDT Office Visit [facility] [address] [place] [address] [phone] 12/26/2024 2:15 PM EDT [facility] [address] [place] [address] [place] [address] Audrey Calvo MD [address] [place] [address] 12/27/2024 9:00 AM EDT Office Visit [facility] ADULT DENTAL [address] [place] [address] Liya Perez documented as of this encounter Visit Diagnoses Diagnosis HTN (hypertension), benign Essential hypertension, benign documented in this encounter Additional Health Concerns Assessment Noted Time PHQ-9 Depression Total Score: 0 12/23/19 9:08 AM EDT documented as of this encounter Care Teams Tandem Mill Roller Relationship Specialty Start Date End Date Audrey Calvo MD [address] [place] [address] PCP - General Family Medicine 05/09/17 documented as of this encounter
--- OUTSIDE RECORDS SUMMARY | 2024-11-13 17:30 | XMS_ITS | Encounter Summary ---
Author Organization [employer] Address [address] 7t [place] [address] Care Team Providers Care Outside Production Inspector Name Role Phone Audrey Calvo MD Primary Care Provider + Reason for Visit * Reason Onset Date Comments CONCRETE CRUSHER LOADER OPERATOR signed today 10/16/2024 Encounter Details Date Type Department Care Team ([facility] st Contact Info) Description 10/16/2024 Telephone [facility] [address] [place], [place] [phone] Mey Vargas RN CONCRETE CRUSHER LOADER OPERATOR signed today Social History Tobacco Use Types [...] EST Pt attended chronic pain group today CONCRETE CRUSHER LOADER OPERATOR Agreement signed today BPI updated Pain severity score of 8, activity interference score of 5.6. Previous BPI completed 06/12/24 with pain severity score of 7, activity interference score of 5. documented in this encounter Plan of Treatment Upcoming Encounters Date Type Department Care Team (Late st Contact Info) Description 12/11/2024 11:00 AM EDT Office Visit [facility] [address] [place] [address] 12/26/2024 2:15 PM EDT Office Visit [facility] [address] [place] [address] Audrey Calvo MD [address] [place] [address] 12/27/2024 9:00 AM EDT Office Visit [facility] ADULT DENTAL [address] [place] [address] Liya Perez documented as of this encounter Visit Diagnoses Not on filedocumented in this encounter Additional Health Concerns Assessment Noted Time PHQ-9 Depression Total Score: 3 02/14/20 24 1:55 PM EDT documented as of this encounter Care Teams Outside Production Inspector Relationship Specialty Start Date End Date Audrey Calvo MD [address] [place] [address] [phone] PCP - General Family Medicine 05/09/17 documented as of this encounter
--- OUTSIDE RECORDS SUMMARY | 2024-11-13 17:30 | XMS_ITS | Encounter Summary ---
Author Organization [employer] Address [address] 7[address] [place] [address] Care Team Providers Care Integrity Assessor Name Role Phone Audrey Calvo MD Primary [...] Description 12/11/2024 11:00 AM EDT Office Visit [facility] [address] [place] [address] 12/26/2024 2:15 PM EDT Office Visit [facility] [address] [place] [address] Audrey Calvo MD [address] [place] [address] 12/27/2024 9:00 AM EDT Office Visit [facility] ADULT DENTAL [address] [place] [phone] Liya Perez documented as of this encounter Visit Diagnoses Not on filedocumented in this encounter Additional Health Concerns Assessment Noted Time PHQ-9 Depression Total Score: 3 02/14/20 24 1:55 PM EDT documented as of this encounter Care Teams Integrity Assessor Relationship Specialty Start Date End Date Audrey Calvo MD [address] [place] [phone] PCP - General Family Medicine 05/09/17 documented as of this encounter
--- OUTSIDE RECORDS SUMMARY | 2024-11-13 17:30 | XMS_ITS | Encounter Summary ---
Author Organization [employer] Address [address] 7t [place] [address] Care Team Providers Care Sound Effects Technician Name Role Phone Audrey Calvo MD Primary Care Provider + Reason for Visit * Reason Onset Date Comments Med Refill 10/15/2024 Encounter Details Date Type Department Care Team (Late st Contact Info) Description 10/15/2024 Refill [facility] [address] [place], [place] [phone] Audrey Calvo MD [address] [place] [address] Achilles tendinitis of right lower extremity Social [...] the past 12 months, has t he [employer], oil or water [employer] threatened to shut off services in your [...] Description 12/11/2024 11:00 AM EDT Office Visit [facility] [address] [place] [address] 12/26/2024 2:15 PM EDT Office Visit [facility] [address] [place] [address] Audrey Calvo MD [address] [place] [address] 12/27/2024 9:00 AM EDT Office Visit [facility] [address] [place] [address] Liya Perez documented as of this encounter Visit Diagnoses Diagnosis Achilles tendinitis of right lower extremity documented in this encounter Additional Health Concerns Assessment Noted Time PHQ-9 Depression Total Score: 3 02/14/20 24 1:55 PM EDT documented as of this encounter Care Teams Sound Effects Technician Relationship Specialty Start Date End Date Audrey Calvo MD [address] [place] [address] PCP - General Family Medicine 05/09/17 documented as of this encounter
--- OUTSIDE RECORDS SUMMARY | 2024-11-13 17:30 | XMS_ITS | Encounter Summary ---
Author Organization [employer] Address [address] [facility] 7t [place] [address] Care Team Providers Care Dope Sprayer Name Role Phone Audrey Calvo MD Primary Care Provider + Reason for Visit * Reason Onset Date Comments Durable Medical Equipment 11/13/2024 Encounter Details Date Type Department Care Team ([facility] st Contact Info) Description 11/13/2024 Telephone [facility] [address] [place], [place] [phone] Audrey Calvo MD [address] [place], [place] [phone] Durable Medical Equipment Social History Tobacco Use Types Packs/Day Years [...] encounter Miscellaneous Notes * Telephone Encounter - Christy Richardson - 11/13/2024 9:39 AM EST Tc from [place] with [facility] stating pt has been without a nebulizer for four months. Pt needs nebulizer machine. documented in this encounter Plan of Treatment Upcoming Encounters Date Type Department Care Team (Late st Contact Info) Description 12/11/2024 11:00 AM EDT Office Visit [facility] [address] [place] [address] 12/26/2024 2:15 PM EDT Office Visit [facility] [address] [place] [address] Audrey Calvo MD [address] [place] [address] 12/27/2024 9:00 AM EDT Office Visit [facility] AD[facility] DENT[facility] [address] [place] [address] Liya Perez documented as of this encounter Visit Diagnoses Not on filedocumented in this encounter Additional Health Concerns Assessment Noted Time PHQ-9 Depression Total Score: 3 02/14/20 24 1:55 PM EDT documented as of this encounter Care Teams Dope Sprayer Relationship Specialty Start Date End Date Audrey Calvo MD [address] [place] [address] PCP - General Family Medicine 05/09/17 documented as of this encounter
--- OUTSIDE RECORDS SUMMARY | 2024-11-13 17:30 | XMS_ITS | Encounter Summary ---
Author Organization [employer] Address [address] [facility] [address] 7[address] [place] [address] Care Team Providers Care Unix Administrator Name Role Phone Audrey Calvo MD Primary Care Provider + Encounter Details Date Type Department Care Team (Late st Contact Info) Description 06/29/2023 Orders Only [facility] CHC MED & PEDS [address] [place], [place] [phone] Emi Gill LPN Social History Tobacco Use [...] AM EDT Office Visit [facility] MEDICINE [address] [place] [phone] 12/26/2024 2:15 PM EDT Office Visit [facility] MEDICINE [address] [place] [address] [phone] Audrey Calvo MD [address] [place] [address] 9[address] 12/27/2024 9:00 AM EDT Office Visit [facility] ADULT DENTAL [address] [place] [address] Liya Perez documented as of this encounter Visit Diagnoses Not on filedocumented in this encounter Additional Health Concerns Assessment Noted Time PHQ-9 Depression Total Score: 0 12/23/19 23 9:08 AM EDT documented as of this encounter Care Teams Unix Administrator Relationship Specialty Start Date End Date Audrey Calvo MD [address] [place] [phone] PCP - General Family Medicine 05/09/17 documented as of this encounter
--- OUTSIDE RECORDS SUMMARY | 2024-11-13 17:31 | XMS_ITS | Encounter Summary ---
Author Organization [employer] Address [address] [facility] 7t [place] [address] Care Team Providers Care Charge Master Analyst Name Role Phone Audrey Calvo MD Primary Care Provider + Reason for Visit * Reason Comments Med Refill Encounter Details Date Type Department Care Team ([facility] Contact Info) Description 08/18/2023 Refill [facility] MEDICINE [address] [place], [place] [phone] Audrey Calvo MD 230 [place], [place] [phone] Social History Tobacco Use Types Packs/Day Years Used Date Smoking Tobacco: Never Passive Smoke Exposure: Never Smokeless Tobacco: Never Alcohol Use Standard Drinks/Week Comments Never 0 (1 standard drink = 0.6 oz pur e alcohol) Depression Answer Date Recorded Patient Health Questionnaire-9 Score 0 12/22/2022 Housing Stability Answer Date Recorded What is your housing situation today? I have marian dias 07/04/[address] you [...] Visit [facility] MEDICINE [address] [place] [address] [phone] 12/26/2024 2:15 PM EDT Office Visit [facility] MEDICINE [address] [place] [address] 17331 Audrey Calvo MD [address] [place] [address] 12458 12/27/2024 9:00 AM EDT Office Visit [facility] ADULT DENTAL [address] [place] [address] [phone] Liya Perez documented as of this encounter Visit Diagnoses Not on filedocumented in this encounter Additional Health Concerns Assessment Noted Time PHQ-9 Depression Total Score: 0 12/23/19 23 9:08 AM EDT documented as of this encounter Care Teams Charge Master Analyst Relationship Specialty Start Date End Date Audrey Calvo MD [address] [place] [address] [phone] PCP - General Family Medicine 05/09/17 documented as of this encounter
--- OUTSIDE RECORDS SUMMARY | 2024-11-13 17:31 | XMS_ITS | Encounter Summary ---
Author Organization [employer] Address [address] 7t [place] [address] Care Team Providers Care Dealer Accounts Investigator Name Role Phone Audrey Calvo MD Primary Care Provider + Reason for Visit * Reason Onset Date Comments Med Refill 11/08/2024 Encounter Details Date Type Department Care Team (Late st Contact Info) Description 11/08/2024 Refill [facility] CHC MED & PEDS [address] [place] [address] Audrey Calvo MD [address] [place] [address] Achilles tendinitis of right lower extremity Social [...] the past 12 months, has t he [employer], oil or water [place] threatened to shut off services in your [...] Description 12/11/2024 11:00 AM EDT Office Visit [facility] MEDICINE [address] [place] [phone] 12/26/2024 2:15 PM EDT Office Visit [facility] MEDICINE [address] [place] [address] [phone] uAdrey Calvo MD [address] [place] [address] [phone] 12/27/2024 9:00 AM EDT Office Visit [facility] ADULT DENTAL 230 [place] [address] Liya Perez documented as of this encounter Visit Diagnoses Diagnosis Achilles tendinitis of right lower extremity documented in this encounter Additional Health Concerns Assessment Noted Time PHQ-9 Depression Total Score: 3 02/14/20 24 1:55 PM EDT documented as of this encounter Care Teams Dealer Accounts Investigator Relationship Specialty Start Date End Date Audrey Calvo MD 230 [place] [address] PCP - General Family Medicine 05/09/17 documented as of this encounter
--- OUTSIDE RECORDS SUMMARY | 2024-11-13 17:31 | XMS_ITS | Encounter Summary ---
Author Organization [employer] Address [address] [facility] 7t [place] [address] Care Team Providers Care Nurses' Association Counselor Name Role Phone Audrey Calvo MD Primary Care Provider + Reason for Visit * Reason Onset Date Comments Nurse Triage 11/13/2024 Encounter Details Date Type Department Care Team ([facility] st Contact Info) Description 11/13/2024 Telephone [facility] MEDICINE 230 [place], [place] [phone] Audrey Calvo MD 230 [place], [place] [phone] Nurse Triage Social History Tobacco Use Types Packs/Day Years [...] encounter Miscellaneous Notes * Telephone Encounter - Margot Reynaga RN - 11/13/2024 9:49 AM EST Images from the original note were not included. No twister frame tender needed as this senior underwriter speaks Welsh. Call to Kalyani Rogers at number below. Reports having foul odor to urine. Per pt reports having sx x 2 month. Reports having subjective fever butrelated to EMILY sx. Reports is having urinary frequency and incontinence. No Urology specialist. Pt offered instED for evaluation of possible UTI. Pt declines states has another appointment today. Pt advised of need for evaluation as risk for infection affecting kidneys and or spreading higher, especially since sx onset over 1 month ago. Pt advised of [facility] operating hours today. Pt states will ask daughter to bring into office today. Reviewed home care advise to increase water and can use sugar free cranberry juice to help with any pain with passing urine until seen and reasons to call back. Protocol Used: Urinary Symptoms (Adult) Protocol-Based Disposition: See in Office or Video Visit Today Video visit offer not recorded Positive Triage Question: * Bad or foul-smelling urine * All higher-acuity triage questions were negative Care Advice Discussed: * Reasons To Call Back - Fever occurs - Pain or burning with urination - Unable to urinate and bladder feels full - You become worse * Telephone Encounter - Christy Richardson - 11/13/2024 9:28 AM EST Symptom: Urination Pain Outcome: Schedule a same-day appointment or talk to a nurse or provider today Reason: Caller denied all higher acuity questions The caller accepted this outcome. [phone] Loly Toney Tc from [facility] Tasha with [facility] stating pt has been without a nebulizer for four months, and sinceJanuary with symptoms of urine infection. Herson states pt needs a f/u appointment with her PCP neri as possible. documented in this encounter Plan of Treatment Upcoming Encounters Date Type Department Care Team (Late st Contact Info) Description 12/11/2024 11:00 AM EDT Office Visit [facility] MEDICINE [address] [place] [address] [phone] 12/26/2024 2:15 PM EDT Office Visit [facility] MEDICINE [address] [place] [address] 220[address] Audrey Calvo MD 230 [place] [address] 12/27/2024 9:00 AM EDT Office Visit [facility] ADULT DENTAL [address] [place] [address] Liya Peerz documented as of this encounter Visit Diagnoses Not on filedocumented in this encounter Additional Health Concerns Assessment Noted Time PHQ-9 Depression Total Score: 3 02/14/20 24 1:55 PM EDT documented as of this encounter Care Teams Nurses' Association Counselor Relationship Specialty Start Date End Date Audrey Calvo MD [address] [place] [address] [phone] PCP - General Family Medicine 05/09/17 documented as of this encounter
--- OUTSIDE RECORDS SUMMARY | 2024-11-13 17:31 | XMS_ITS | Encounter Summary ---
Author Organization [facility] Address [address] [facility] 7t [place] [address] Care Team Providers Care Marketing Area Manager Name Role Phone Audrey Calvo MD Primary Care Provider + Encounter Details Date Type Department Care Team (Late st Contact Info) Description 09/27/2022 Orders Only [facility] CHC MED & PEDS [address] [place], [place] [phone] Emi Gill LPN Social History Tobacco Use [...] 12/11/2024 11:00 AM EDT Office Visit [facility] MEDICINE [address] [place] [address] [phone] 12/26/2024 2:15 PM EDT Office Visit [facility] MEDICINE [address] [place] [address] [phone] Audrey Calvo MD 230 [place], [place] [phone] 12/27/2024 9:00 AM EDT Office Visit [facility] ADULT DENTAL 230 [place], [place] [phone] Liya Perez documented as of this encounter Visit Diagnoses Not on filedocumented in this encounter Care Teams Marketing Area Manager Relationship Specialty Start Date End Date Audrey Calvo MD [address] [place] [phone] PCP - General Family Medicine 05/09/17 documented as of this encounter
--- OUTSIDE RECORDS SUMMARY | 2024-11-13 17:31 | XMS_ITS | Encounter Summary ---
Author Organization [employer] Address [address] [facility] 7t [place] [address] Care Team Providers Care Drying Unit Felting Machine Operator Name Role Phone Audrey Calvo MD Primary Care Provider + Encounter Details Date Type Department Care Team (Late st Contact Info) Description 11/22/2022 Orders Only [facility] CHC MED & PEDS [address] [place], [place] [phone] Emi Gill LPN Social History Tobacco Use [...] Description 12/11/2024 11:00 AM EDT Office Visit [facility] [place] [address] 12/26/2024 2:15 PM EDT Office Visit [facility] [place] [address] [place] [address] 12/27/2024 9:00 AM EDT Office Visit [facility] [place] [place] [address] Liya Perez documented as of this encounter Procedures Procedure Name Priority Date/Time Associated Diagnosis Comments BD DEXA AXIAL Routine 12/07/2022 11:21 AM EDT documented in this encounter Results * BD DEXA Axial (12/07/2022 11:21 AM EDT) Anatomical Region Laterality Modality Body Radiographic Farheen ging 12/07/2022 11:2 1 AM EDT Narrative 12/08/2022 7:44 AM EDT ? [facility] [place] ? [address] ?[place] ? Mammography Report ? Signed ? Patient: Sue,Kalyani Dubon ?MR#: [id number] ?? 83 ? : 1955 ?Acct:[id number] ? Age/Sex: 67 / F ?ADM Date: 03/21/23 ? Loc: HO.MAMMO ? Attending Dr: Audrey Calvo MD ? Ordering Physician: Audrey Calvo MD ?Results: ? Date of Service: 12/07/22 ?Follow Up: ? Procedure(s): XR DEXA axial skeleton ?? Accession Number(s): [id number] ? cc: Audrey Calvo MD ? EXAMINATION: ?? BONE DENSITOMETRY ? CLINICAL INDICATION: ?? Screening. ? COMPARISON: ?? Previous BD dated 10/14/2017 and baseline BD dated 11/13/2013. ? TECHNIQUE: Using a [employer] DXA System (software version: ?? 13.1) manufactured by [employer], dual-energy x-ray absorptiometry ?? was performed of [...] 0741 ? DD/ 1121 ? TD/TT: ? Gymnastics Instructor: PATTERSON ? Procedure Note Donotuseinterpreter, Image - 12/08/2022 [facility] [address] [place], [place] [address] Mammography Report Signed Patient: Kalyani Rogers [facility]#: [id number] 83 : 7Acct:[id number] Age/Sex: 67 / FADM Date: 12/07/22 Loc: HO.MAMMO Attending Dr: uAdrey Calvo MD Ordering Physician: Audrey Calvo MDResults: Date of Service: 12/07/22Follow Up: Procedure(s): XR DEXA axial skeleton Accession Number(s): [id number] cc: Audrey Calvo MD EXAMINATION: BONE DENSITOMETRY CLINICAL INDICATION: Screening. COMPARISON: Previous BD dated 10/14/2017 and baseline BD dated 11/13/2013. TECHNIQUE: Using a [employer] DXA System (software version: 13.1) manufactured by [employer], dual-energy x-ray absorptiometry was performed of the [...] in OV> 12/08/22 0741 DD/ 1121 TD/TT: Gymnastics Instructor: PATTERSON [facility] External Provider IMG DXA PROCEDURES Final Result documented in this encounter Visit Diagnoses Not on filedocumented in this encounter Care Teams Drying Unit Felting Machine Operator Relationship Specialty Start Date End Date Audrey Calvo MD [address] [place] [address] 36663 PCP - General Family Medicine 05/09/17 documented as of this encounter
--- OUTSIDE RECORDS SUMMARY | 2024-11-13 17:31 | XMS_ITS | Encounter Summary ---
Author Organization [employer] Address [address] [facility] [address] 7t [place] [address] Care Team Providers Care Manager Background Name Role Phone Audrey Calvo MD Primary Care Provider + Encounter Details Date Type Department Care Team ([facility] st Contact Info) Description 07/02/2024 Orders Only [facility] MEDICINE 230 [place], [place] [phone] Cassia Juarez MD [address] [place], [place] [phone] Social History Tobacco Use Types Packs/Day Years [...] 12/11/2024 11:00 AM EDT Office Visit [facility] MEDICINE [address] [place] [address] 344[address] 12/26/2024 2:15 PM EDT Office Visit [facility] MEDICINE [address] [place] [address] 12972 Audrey Calvo MD [address] [place] [address] 960[address] 12/27/2024 9:00 AM EDT Office Visit [facility] ADULT DENTAL [address] [place] [address] 23319 Liya Perez documented as of this encounter Visit Diagnoses Not on filedocumented in this encounter Additional Health Concerns Assessment Noted Time PHQ-9 Depression Total Score: 3 02/14/20 24 1:55 PM EDT documented as of this encounter Care Teams Manager Background Relationship Specialty Start Date End Date Audrey Calvo MD [address] [place] [address] 55669 PCP - General Family Medicine 05/09/17 documented as of this encounter
--- OUTSIDE RECORDS SUMMARY | 2024-11-13 17:31 | XMS_ITS | Encounter Summary ---
Author Organization [employer] Address [address] 7t [place] [address] Care Team Providers Care Sparmaker Name Role Phone Audrey Calvo MD Primary Care Provider + Encounter Details Date Type Department Care Team (Late st Contact Info) Description 10/19/[address] [facility] CHC MED & PEDS [address] [place], [place] [phone] Nila Gallardo LPN Social History Tobacco Use [...] Description 12/11/2024 11:00 AM EDT Office Visit [facility] MEDICINE [address] [place] [address] 93218 12/26/2024 2:15 PM EDT Office Visit [facility] MEDICINE [address] [place] [address] 76583 Audrey Calvo MD [address] [place] [address] 45274 12/27/2024 9:00 AM EDT Office Visit [facility] ADULT DENTAL [address] [place] [address] 28831 Liya Perez documented as of this encounter Visit Diagnoses Not on filedocumented in this encounter Additional Health Concerns Assessment Noted Time PHQ-9 Depression Total Score: 0 12/23/19 23 9:08 AM EDT documented as of this encounter Care Teams Sparmaker Relationship Specialty Start Date End Date Audrey Calvo MD [address] [place] [address] [phone] PCP - General Family Medicine 05/09/17 documented as of this encounter
--- OUTSIDE RECORDS SUMMARY | 2024-11-13 17:31 | XMS_ITS | Encounter Summary ---
Author Organization [employer] Address [address] 7[address] [place] [address] Care Team Providers Care Elevator Constructor Helper Name Role Phone Audrey Calvo MD Primary Care Provider + Encounter Details Date Type Department Care Team ([facility] st Contact Info) Description 09/06/2024 Telephone [facility] MEDICINE 230 [place], [place] [phone] Audrey Calvo MD 230 [place], [place] [phone] Social History Tobacco Use Types Packs/Day Years [...] 11:00 AM EDT Office Visit [facility] MEDICINE [address] [place] [address]115 12/26/2024 2:15 PM EDT Office Visit [facility] MEDICINE [address] [place] [address] 15409 Audrey Calvo MD [address] [place] [address] [phone] 12/27/2024 9:00 AM EDT Office Visit [facility] ADULT DENTAL [address] [place] [address] 28904 Liya Perez documented as of this encounter Visit Diagnoses Not on filedocumented in this encounter Additional Health Concerns Assessment Noted Time PHQ-9 Depression Total Score: 3 02/14/20 24 1:55 PM EDT documented as of this encounter Care Teams Elevator Constructor Helper Relationship Specialty Start Date End Date Audrey Calvo MD [address] [place] [address] [phone] PCP - General Family Medicine 05/09/17 documented as of this encounter
--- OUTSIDE RECORDS SUMMARY | 2024-11-13 17:31 | XMS_ITS | Encounter Summary ---
Author Organization [employer] Address [address] [facility] 7t [place] [address] Care Team Providers Care Tube Winder Name Role Phone Audrey Calvo MD Primary Care Provider + Reason for Visit * Reason Comments Med Refill Encounter Details Date Type Department Care Team ([facility] Contact Info) Description 10/06/2023 Refill [facility] MEDICINE [address] [place], [place] [phone] Audrey Calvo MD [address] [place], [place] [phone] Social History Tobacco Use Types Packs/Day Years [...] 11:00 AM EDT Office Visit [facility] MEDICINE [address] [place] [address] 28994 12/26/2024 2:15 PM EDT Office Visit [facility] MEDICINE [address] [place] [address] 109[address] Audrey Calvo MD [address] [place] [address] [phone] 12/27/2024 9:00 AM EDT Office Visit [facility] ADULT DENTAL [address] [place] [address] [phone] Liya Perez documented as of this encounter Visit Diagnoses Not on filedocumented in this encounter Additional Health Concerns Assessment Noted Time PHQ-9 Depression Total Score: 0 12/23/19 23 9:08 AM EDT documented as of this encounter Care Teams Tube Winder Relationship Specialty Start Date End Date Audrey Calvo MD [address] [place] [address] 39142 PCP - General Family Medicine 05/09/17 documented as of this encounter
--- OUTSIDE RECORDS SUMMARY | 2024-11-13 17:31 | XMS_ITS | Clinical Summary ---
Author Organization [employer] Address [address] [facility] 7t [place] [address] Care Team Providers Care Produce Buyer Name Role Phone Audrey Calvo MD Primary Care Provider + Allergies Active Allergy Reactions Criticality Noted Date Comments Aspirin 08/15/2018 Medications FREESTYLE LITE test stripIndications :Type 2 diabetes mellitus with unspecified complications ([facility]) TEST BLOOD SUGAR TWICE DAILY 100 strip 11 023 Active TRUEplus Lancets 33G miscIndications: Type 2 diabetes mellitus with unspecified complications ([facility]) TEST BLOOD SUGAR TWICE DAILY 100 each [...] hyperglycemia, without long-term current use of insulin ([facility]) INJECT ONE PEN (= 3MG) SUBCUTANEOUSLY ONCE A WEEK DIRECTED 2 mL Active metFORMIN (Glucophage) 500 MG tablet TAKE 2 TABLETS BY MOUTH TWICE DAILY IN THE MORNING AND EVENING WITH MEALS 360 tablet 3 Active Lantus SoloStar 100 UNIT/ML penIndications:T ype 2 diabetes mellitus with hyperglycemia, without long-term current use of insulin ([facility]) Inject 15 units subcutaneously every evening 3 [...] 13, 2024. 56 tablet 025 2024 Active sulfamethoxazole -trimethoprim (Bactrim DS) 800-160 MG tablet Take 1 tablet by mouth 2 times daily for 14 days. 28 tablet 025 2024 Active enalapril (Vasotec) 20 [...] Active Problems Problem Noted Date Diagnosed Date terminal gauger current use of opiate analgesic 2023 Overview (10/18/2024): Medication: Percocet 10-325mg Q12H PRN Indication: cervical spondylosis, bilat knee OA Last [employer] Agreement: 10/16/24 Tier III (CREEL CLEANER visit every 4-6 months) Assessment & Plan [...] 02/03/2023 Sepsis due to Escherichia coli 02/03/2023 UTI due to extended-spectrum beta lactamase (ESBL) producing Escherichia coli 02/03/2023 Gram-negative bacteremia 02/03/2023 Focal pyelonephritis 02/03/2023 Cough 02/03/2023 COVID-19 02/03/2023 Exacerbation of intermittent asthma 02/03/2023 Dietary counseling 12/22/2022 Assessment & Plan (12/22/2022 10:37 AM EDT): Pt with weight gain over the past year after renal abscess recommened to schedule appointment to fu with dietitian from weight management program with [facility] [place] to fu renal abcess is pending Exercise counseling 12/22/2022 Encounter for preventive health examination 10/2022 Assessment & Plan (12/23/2023 3:17 PM EDT): Discussed with patient re increase fresh fruit and vegetable intake. Counseled re moderate exercise as tolerated, up to 20min/d Patient feels safe at home. PAP smear: Overdue , patient wants to be referred to [facility]. Mammogram Overdue, I will schedule mammo. Bone [...] scheduled for PAP smear, will refer to burner hand Mammogram: up to date, next one due [...] between Reminded Pt to be compliant with [employer] Tubular adenoma of colon 07/17/2018 Calcaneal spur [...] on 08/2023, rx for CPAP sent to [facility] on 11/03/23 Patient will fu with [facility] re provider for CPAP She's aware [...] of multiple topical analgesics after discussion with [facility] Pharmacist - meds sent to pharmacy [...] on oxycodone PRN Continue close fu with [employer] program We have done [employer] education re [...] Date Type Department Care Team Description 11/13/2024 10:40 AM EST Office Visit [facility] [address] [place] [phone] Name, MD Srinivas UTI symptoms (Primary Dx); Recurrent UTI; UTI due to extended-spectrum beta lactamase (ESBL) producing Escherichia coli 11/13/2024 Telephone [facility] [address] [place] [phone] Audrey Calvo MD Durable Medical Equipment 11/13/2024 Telephone [facility] [address] [place] [address] Audrey Calvo MD Nurse Triage 11/08/2024 Refill [facility] [address] [place], [place] [phone] Audrey Calvo MD Achilles tendinitis of right lower extremity 10/30/2024 Telephone [facility] [address] [place] [address] Audrey Calvo MD Appointment Request 10/23/2024 Refill [facility] [address] [place] [address] Audrey Calvo MD Primary hypertension 10/21/2024 Refill [facility] [address] [place] [address] Audrey Calvo MD Diabetic polyneuropathy associated with type 2 diabetes mellitus ([facility]/H[facility]); Primary osteoarthritis of both knees; Other chronic pain 10/19/2024 Telephone [facility] [address] [place] [address] Audrey Calvo MD Ping recall 10/19/2024 Refill [facility] [address] [place] [address] Audrey Calvo MD 10/17/2024 Orders Only [facility] [address] [place] [address] Teresa Packer FNP 10/16/2024 11:00 AM EST Office Visit [address] [address] Teresa Packer FNP Primary osteoarthritis of both knees (Primary Dx); Cervical spondylosis; terminal gauger current use of opiate analgesic; Urinary symptom or sign 10/16/[address] [address] Mey Vargas RN [employer] CLE[employer]ER signed today 10/16/2024 Travel 10/15/2024 Refill [facility] [address] [place] [address] Audrey Calvo MD Achilles tendinitis of right lower extremity 09/28/2024 Refill [facility] [address] [place] [address] Audrey Calvo MD Chronic rhinitis; HTN (hypertension), benign 09/24/2024 9:00 AM EST Office Visit [facility] [address] [place] [address] Liya Perez Dental calculus (Primary Dx); Dental plaque; Periodontal disease 09/20/2024 Refill [facility] [address] [place] [address] Audrey Calvo MD Chronic rhinitis 09/06/2024 Telephone [facility] [address] [place] [address] Audrey Calvo MD 09/06/2024 Telephone [facility] [address] [place] [address] Audrey Calvo MD Med Refill 09/06/2024 Telephone [facility] [address] [place] [address] Audrey Calvo MD Med Refill 09/04/2024 Refill [facility] [address] [place] [address] Audrey Calvo MD Achilles tendinitis of right lower extremity 08/24/2024 Refill [facility] [address] [place] [address] Audrey Calvo MD 08/23/2024 Orders Only GENERIC EXTERNAL DATA DEPARTMENT Provider, Generic External Data 08/22/2024 Telephone [facility] [address] [place] [address] Liya Perez 08/22/2024 Refill [facility] [address] [place] [address] Audrey Calvo MD 08/14/2024 11:00 AM EST Office Visit [facility] [address] [place] [address] Teresa Packer FNP Cervical spondylosis (Primary Dx); Primary osteoarthritis of both knees; terminal gauger current use of opiate analgesic 08/14/2024 Telephone [facility] [address] [place] [address] Teresa Packer FNP CREEL CLEANER: Tier System Update 08/14/2024 Travel 08/13/2024 Telephone [facility] [address] [place] [address] Phu Dang MD from Last 3 Months [...] your housing situation today? I have marina larissa 07/04/[address] you li [...] (190 lb) 11/13/2024 10:45 AM EST Height 162.6 cm (5' 4 ) 02/14/2024 1:26 PM EDT Body Mass Index 32.61 02/14/2024 1:26 PM EDT Plan of Treatment Upcoming Encounters Date Type Department Care Team (Late st Contact Info) Description 12/11/2024 11:00 AM EDT Office Visit [facility] [address] [place] [address] 12/26/2024 2:15 PM EDT Office Visit [facility] [address] [place] [address] Audrey Calvo MD [address] [place] [address] 12/27/2024 9:00 AM EDT Office Visit [facility] AD[facility] [address] [place] [address] Liya Perez Health Maintenance Due Date Last [...] Routine 11/13/2024 10:51 AM EST UTI symptoms URINALYSIS, COMPLETE, WITH REFLEX TO CULTURE Routine [...] PM EST Primary osteoarthritis of both knees prison current use of opiate analgesic PROPHYLAXIS - [...] hyperglycemia, without long-term current use of insulin ([facility]) BI MAMMOGRAM SCREENING TOMOSYNTHESIS BILATERAL Routine 01/17/2024 9:18 AM EDT Screening mammogram for breast cancer [facility] HISTORICAL MICROALBUMIN, RANDOM Routine 03/02/2021 1:58 PM EDT HM COLONOSCOPY Routine 08/28/2019 8:20 AM EST from Last 3 Months or Most Recently Relevant to Health Maintenance Results * (ABNORMAL) POCT urinalysis dipstick manually [...] Urine 11/13/2024 10:5 1 AM EST Srinivas Prasad MD POINT OF CARE TEST ENTER/EDIT OR DERABLES Final Result * (ABNORMAL) Urinalysis, Complete, with Reflex to Culture (10/17/2024 12:01 PM EST) [facility] Color Urine Yellow [facility] Appearance Urine Cloudy [facility] PH 7.0 5.0 - 9.0 [facility] Glucose Urine UA 500(A) Negative mg/dL [facility] Urine Blood Negative Negative [facility] Specific Carter - Urine 1.020 1.005 - 1.025 [facility] Urine Protein Negative Neg-Trace mg/dL [facility] Urine Ketones Negative Negative mg/dL [facility] Nitrite Urine Positive(A) Negative [facility] Leukocyte Esterase Urine Small (1+)(A) Negative [facility] RBC Urine 0-2 0 - 2 /HPF [facility] Urine WBC 21-50(A) 0 - 5 /HPF [facility] Urine Squamous Epithelial Cell 3-5 0 - 2 /HPF [facility] Urine Bacteria 4+ None Seen [facility] Hyaline Casts, Urine 0-2 0 - 2 /LPF [facility] 10/17/2024 12:0 1 PM EST 10/17/2024 1:11 PM EST Narrative [facility] - 10/17/2024 1:31 PM EST Urine, Clean Catch Teresa Packer TOP LIFT COMPRESSOR LAB URINE ORDERABLES Final Res ult [facility] [address] [place] [address] [phone] * (ABNORMAL) Basic Metabolic Panel (10/17/2024 12:01 PM EST) Sodium 142 135 - 145 mmol/L [facility] Potassium 4.6 3.3 - 5.1 mmol/L [facility] Comment:Slight Hemolysis.Int erpret result with caution. Chloride 106 96 - 108 mmol/L [facility] Carbon Dioxide 28 22 - 29 mmol/L [facility] Anion Gap 13 12 - 20 [facility] Urea Nitrogen (BUN) 9 9 - 16 mg/dL [facility] Creatinine, Serum 0.68 0.5 - 1.4 mg/dL [facility] Estimated Glomerular Filt Rate >60 [facility] Comment:Chronic Kidney Disea se: Estimated GFR < 60 mL/min/1.03p6Hgdttc Kidney Disease: Estimated GFR < 15 mL/min/1.73m2 Glucose 124(H) 60 - 115 mg/dL [facility] Calcium 9.7 8.4 - 10.2 mg/dL [facility] Blood Venous blood specimen / Unknown 10/17/2024 12:01 PM EST 10/17/2024 1:40 PM EST us Teresa Packer TOP LIFT COMPRESSOR LAB BLOOD ORDERABLES Final Res ult Performing Organization Address City/State/[facility] Co de Phone Number [facility] [address] [place] [phone] * Culture, Urine, Routine (10/17/2024 12:00 AM EST) Urine Urine specimen obtained by clean catch procedure / Unknown 10/17/2024 10/17/2024 Comment:UACC Narrative [facility] - 10/19/2024 7:25 AM EST Escherichia [...] MICROBIOLOGY - GENERAL ORD ERABLES Final Result [facility] [address] [place] [address] [phone] * POCT CHIQUITA-14 Urine Drug Screen (10/16/2024 2:02 PM EST) Only the most recent of2 resultswithin the time period is included. Oxycodone Screen, Urine Positive Urine Urine specimen obtained by clean catch procedure / Unknown 10/16/2024 2:02 PM EST Mey Oliveira RN - 10/16/2024 2:02 PM EST UTOX cup Lot#[id number] Exp. 06/13/26 Internal Pass Control Teresa MUSA POINT OF CARE TEST ENTER/EDIT ORDERABLES Final Result * [facility] Lower Extremity Venous Duplex Bilateral (09/04/2024 10:10 AM EST) 09/04/2024 10:1 0 AM EST Beth [facility] - 10/17/2024 4:24 PM EST ? [facility] ?[address] ?[place] [address] ? Ultrasound Report ? Signed ? Patient: Ubiles,Kalyani I ?MR#: [id number] ?? 83 ? : 1955 ?Acct:[id number] ? Age/Sex: 69 / F ?ADM Date: 12/17/24 ? Loc: HO.US ? Attending Clarisse [id number]-C ? Ordering Physician: Makenna Pryor PA-C ?? Date of Service: 09/04/24 ?? Procedure(s): US venous duplex LE BI ?? Accession Number(s): [id number] ? cc: Audrey Calvo MD; Makenna Pryor [...] DD/ 1010 ? TD/TT: 09/04/24 1042 ? Inseamer: ASHER ? Procedure Note Donronter, Image - 10/17/2024 [place] [address] Ultrasound Report Signed Patient: Kalyani Rogers IMR#: [id number] 83 : 1955cct:[id number] Age/Sex: 69 / FADM Date: 09/04/24 Loc: HO.US Attending Dr: Makenna Pryor PA-C Ordering Physician: Makenna Pryor PA-C Date of Service: 09/04/24 Procedure(s): US venous duplex LE BI Accession Number(s): [id number] cc: Audrey Calvo MD; Makenna Pryor PA-C [...] 10/17/24 1621 DD/ 1010 TD/TT: 09/04/24 1042 Inseamer: ASHER Authorlelia Provider Result Type Result Stat [facility] External Provider CV VASC ULAR PROCEDURES Edited Result - Final [facility] [address] [place] [phone] * Gross and Microscopic Level 3 (08/23/2024 10:22 AM EST) 08/23/2024 10:2 2 AM EST 08/24/2024 8:13 AM EST [facility] - 08/27/2024 11:00 AM EST ----- ------- Name: Kalyani Rogers I ? Age/Sex: 69/F ? : 1955 Unit#: [id number] ?? Attend Dr: Kalia Burleson MD ?Re08/23/24 ?Status: DEP REF ? Location: HO.LNP ?Disch: ? ----- ------- SPEC : [id number] ? RECD: 08/24/24 ? STATUS: ??SOUT ? REQ NUM: [id number] ? LISA: 08/23/24 ? SUBM DR: Kalia [...] Copies To: ?? Audrey Calvo MD ?? [facility] ?? [address] [facility] ?? [place] [address] ?? [phone] ?? Kalia Burleson MD ?? [facility] ?? [address] [facility] ?? [place] [address] ?? [phone] ? CONTINUED ON NEXT PAGE ----- ------- Name: Kalyani Rogers I ? Age/Sex: 69/F ? : 1955 Unit#: [id number] ?? Attend Dr: Kalia Burleson MD ?Re08/23/24 ?Status: DEP REF ? Location: HO.LNP ?Disch: ? ----- ------- SPEC : [id number] ? RECD: 08/24/24 ? STATUS: ??SOUT ? REQ NUM: [id number] ? LISA: 08/23/24 ? SUBM DR: Kalia Burleson MD ? ENTERED: ??08/24/24 ?SP TYPE: Surgical ? OTHR : Audrey Calvo MD ? ORDERED: ??Gross Micro L3 ? ----- ------- Signed (signature on file) Sally Avina 08/27/24 1100 ? ----- ------- ? END OF REPORT ? us Generic External Data Provider LAB CYTOLOGY ORDE RABTTAI Final Result [facility] [address] [place] [address] [phone] * Lipid Panel with Reflex to Direct LDL (06/29/2024 8:54 AM EDT) Triglycerides 66 <150 mg/dL [facility] Comment:Desirable Triglyceri de: less than 150 mg/dLBorderline High Triglyceride 150-199 mg/dLHigh Triglyceride: 200-499 mg/dLVery High Triglyceride: greater than or equal to 5OO mg/dL Cholesterol 139 <200 mg/dL [facility] Comment:Desirable Cholestero l: less than 200 mg/dLBorderline High Cholesterol: 200-239 mg/dLHigh Cholesterol: greater than 239 mg/dL LDL Cholesterol Calculated 71 <100 mg/dL [facility] Comment:Desirable LDL: less than 100 mg/dLNear Optimal/Above Optimal LDL: 110- 129 mg/dLBorderline High LDL: 130-159 mg/dLHigh LDL: 160-189 mg/dLVery High LDL: greater than or equal to 190 mg/dL HDL Cholesterol 55 >40 mg/dL [facility] Comment:Desirable HDL: great er than 40 mg/dL Note: This HDL assay may give artificially low results in patients with liver disease. Blood 06/29/2024 8:54 AM EDT 06/29/2024 11:09 AM EDT us Audrey Calvo MD LAB BLOOD ORDERABLES Fin al Result [facility] [address] [place] [address] [phone] * (ABNORMAL) POCT HGB A1C (02/14/2024 1:28 PM EDT) Hemoglobin A1C 7.7(A) 4.0 - 6.0 % QC Media Lot # ,[id number] Lot# Expiration Date Blood 02/14/2024 1:28 PM EDT us Audrey Calvo MD POINT OF CARE TEST ENTER /EDIT ORDERABLES Final Result * BI Mammogram Screening Tomosynthesis Bilateral (01/17/2024 9:18 AM EDT) Anatomical Region Laterality Modality Breast Bilateral Mammography 01/17/2024 9:18 AM EDT Narrative 02/12/2024 7:16 AM EDT ? [facility] [place] ? [address] ?[place] [phone] ? Mammography Report ? Signed ? Patient: Sue,Kalyani I ?MR#: [id number] ?? 83 ? : 1955 ?Acct:[id number] ? Age/Sex: 68 / F ?ADM Date: 04/30/24 ? Loc: HO.MAMMO ? Attending Dr: Audrey Calvo MD ? Ordering Physician: Audrey Calvo MD ?Results: 1Ne ?? gative ? Date of Service: 01/17/24 ?Follow Up: 1 Year From Orig ?? inal Mammogram ? Procedure(s): MM tomosynthesis screening BI ?? Accession Number(s): [id number] ? cc: Audrey Calvo MD ? EXAMINATION: [...] 02/12/24710 ? DD/ 7 ? TD/TT: ? Inseamer: ? Procedure Note Ricky Guevara - 02/12/2024 [facility] [address] [place] [address] Dr. [place], [place] [address] Mammography Report Signed Patient: Kalyani Rogers IMR#: [id number] 83 : 1955cct:[id number] Age/Sex: 68 / FADM Date: 01/17/24 Loc: HO.MAMMO Attending Dr: Audrey Calvo MD Ordering Physician: Audrey Calvo MDResults: 1Ne gative Date of Service: 01/17/24Follow Up: 1 Year From Orig inal Mammogram Procedure(s): MM tomosynthesis screening BI Accession Number(s): [id number] cc: Audrey Calvo MD EXAMINATION: MM SCREENING [...] in OV> 02/12/24 0711 DD/ 0918 TD/TT: Inseamer: us Audrey Calvo MD IMG BI PROCEDURES Final Result * MICROALBUMIN, RANDOM (03/02/2021 1:58 PM EDT) Creatinine Urine 30.13 mg/dL [facility] Microalbum/Creati nine Ratio Ur 43.1 ug/mg cr [facility] Comment: ?Albumin/Creatinine Ratio Reference Ranges: ? Normal: < 30 ug/mg creatinine ? Microalbuminuria: ??30 - 300 ug/mg creatinine Clinical Albuminuria: ??> 300 ug/mg creatinine Microalbumin Urine 13.0 mg/L [facility] 03/02/2021 1:58 PM EDT Historical Provider HISTORICAL/NON ORDERABLE LABS Final Result [facility] [address] * Hm Colonoscopy (08/28/2019 8:20 AM EST) Historical Provider HEALTH MAINTENANCE Final Result from Last 3 Months or Most Recently Relevant to Health Maintenance Insurance [facility] - [facility] DENTAL - [facility] Care Teams Produce Buyer Relationship Specialty Start Date End Date Audrey Calvo MD [address] [place] [phone] PCP - General Family Medicine 05/09/17
--- OUTSIDE RECORDS SUMMARY | 2024-11-13 17:31 | XMS_ITS | Encounter Summary ---
Author Organization [employer] [facility] Address [address] [facility] 7t [place] [address] Care Team Providers Care Adjunct Faculty Instructor Name Role Phone Audrey Calvo MD Primary Care Provider + Encounter Details Date Type Department Care Team (Latest Contact Info) Description 01/31/2019 Abstract [facility] CONVERSIONS Dental, Provider, DDS Social History [...] Description 12/11/2024 11:00 AM EDT Office Visit [facility] [address] [place] [address] 12/26/2024 2:15 PM EDT Office Visit [facility] [address] [place] [address] Audrey Calvo MD [address] [place] [address] 12/27/2024 9:00 AM EDT Office Visit [facility] ADULT DENTAL [address] [place] [address] Li[place] Perez documented as of this encounter Visit Diagnoses Not on filedocumented in this encounter Care Teams Adjunct Faculty Instructor Relationship Specialty Start Date End Date Audrey Calvo MD [address] [place] [address] PCP - General Family Medicine 05/09/17 documented as of this encounter
--- OUTSIDE RECORDS SUMMARY | 2024-11-13 17:31 | XMS_ITS | Encounter Summary ---
Author Organization [employer] Address [address] [facility] 7t [place] [address] Care Team Providers Care Peach Grower Name Role Phone Audrey Calvo MD Primary Care Provider + Reason for Visit * Reason Onset Date Comments Appointment Request 10/30/2024 Encounter Details Date Type Department Care Team ([facility] Contact Info) Description 10/30/2024 Telephone [facility] [address] [place], [place] [phone] Audrey Calvo MD [address] [place] [address] Appointment Request Social History Tobacco Use Types [...] Description 12/11/2024 11:00 AM EDT Office Visit [facility] [address] [place] [address] 12/26/2024 2:15 PM EDT Office Visit [facility] [address] [place] [address] Audrey Calvo MD [address] [place] [address] 12/27/2024 9:00 AM EDT Office Visit [facility] ADULT DENT[facility] [address] [place] [address] Liya Preez documented as of this encounter Visit Diagnoses Not on filedocumented in this encounter Additional Health Concerns Assessment Noted Time PHQ-9 Depression Total Score: 3 02/14/20 24 1:55 PM EDT documented as of this encounter Care Teams Peach Grower Relationship Specialty Start Date End Date Audrey Calvo MD [address] [place] [address] PCP - General Family Medicine 05/09/17 documented as of this encounter
--- OUTSIDE RECORDS SUMMARY | 2024-11-13 17:31 | XMS_ITS | Encounter Summary ---
Author Organization [employer] Address [address] [facility] 7t [place] [address] Care Team Providers Care Automotive Quality Manager Name Role Phone Audrey Calvo MD Primary Care Provider + Reason for Visit * Reason Comments Med Refill Encounter Details Date Type Department Care Team ([facility] st Contact Info) Description 10/21/[address] [facility] [address] [place], [place] [phone] Audrey Calvo MD [address] [place], [place] [phone] Diabetic polyneuropathy associated with type 2 diabetes [...] Description 12/11/2024 11:00 AM EDT Office Visit [facility] [address] [place] [address] 12/26/2024 2:15 PM EDT Office Visit [facility] [address] [place] [address] Audrey Calvo MD [address] [place] [address] 12/27/2024 9:00 AM EDT Office Visit [facility] ADULT DENTAL [address] [place] [phone] Liya Perez documented as of this encounter Visit Diagnoses Diagnosis Diabetic polyneuropathy associated with type 2 diabetes mellitus ([facility]) Primary osteoarthritis of both knees Other chronic pain documented in this encounter Additional Health Concerns Assessment Noted Time PHQ-9 Depression Total Score: 3 02/14/20 24 1:55 PM EDT documented as of this encounter Care Teams Automotive Quality Manager Relationship Specialty Start Date End Date Audrey Calvo MD [address] [place] [phone] PCP - General Family Medicine 05/09/17 documented as of this encounter
--- OUTSIDE RECORDS SUMMARY | 2024-11-13 17:31 | XMS_ITS | Encounter Summary ---
Author Organization [employer] Address 75 [facility] 7t [place] [address] Care Team Providers Care Logging Tractor Operator Swamp Name Role Phone Audrey Calvo MD Primary Care Provider + Reason for Visit * Reason Comments Med Refill Encounter Details Date Type Department Care Team ([facility] Contact Info) Description 10/19/2024 Refill [facility] [address] [place], [place] [phone] Audrey Calvo MD 230 [place], [place] [phone] Social History Tobacco Use Types Packs/Day Years [...] 11:00 AM EDT Office Visit [facility] [address] [place] [address] 35[address] 12/26/2024 2:15 PM EDT Office Visit [facility] [address] [place] [address] 08302 Adurey Calvo MD [address] [place] [address] 701[address] 12/27/2024 9:00 AM EDT Office Visit [facility] ADULT DENTAL [address] [place] [address] 11429 Liya Perez documented as of this encounter Visit Diagnoses Not on filedocumented in this encounter Additional Health Concerns Assessment Noted Time PHQ-9 Depression Total Score: 3 02/14/20 24 1:55 PM EDT documented as of this encounter Care Teams Logging Tractor Operator Swamp Relationship Specialty Start Date End Date Audrey Calvo MD [address] [place] [address] [phone] PCP - General Family Medicine 05/09/17 documented as of this encounter
--- OUTSIDE RECORDS SUMMARY | 2024-11-13 17:31 | XMS_ITS | Encounter Summary ---
Author Organization [employer] Address [address] [facility] [address] 7t [place] [address] Care Team Providers Care Technical Sales Representatives Name Role Phone Audrey Calvo MD Primary Care Provider + Encounter Details Date Type Department Care Team (Late st Contact Info) Description 02/15/[address] [facility] [address] [place], [place] [phone] Provider, MD [place] Social History Tobacco Use [...] 12/11/2024 11:00 AM EDT Office Visit [facility] [address] [place] [address] 12/26/2024 2:15 PM EDT Office Visit [facility] [address] [place] [address] 04[address] Audrey Calvo MD [address] [place] [address] 8[address] 12/27/2024 9:00 AM EDT Office Visit [facility] ADULT DENTAL [address] [place] [address] 35561 Liya Perez documented as of this encounter [...] documented as of this encounter Care Teams Technical Sales Representatives Relationship Specialty Start Date End Date Audrey Calvo MD [address] [place] [address] 26125 PCP - General Family Medicine 05/09/17 documented as of this encounter
--- OUTSIDE RECORDS SUMMARY | 2024-11-13 17:31 | XMS_ITS | Encounter Summary ---
Author Organization [facility] Address 75 [facility] 7t [place] [address] Care Team Providers Care Construction Trench Digger Name Role Phone Audrey Calvo MD Primary Care Provider + Encounter Details Date Type Department Care Team (Late Contact Info) Description 10/26/2022 Orders Only [facility] [address] [place] [address] [phone] Nila Gallardo LPN Social History Tobacco Use [...] 11:00 AM EDT Office Visit [facility] [address] [place] [address] [phone] 12/26/2024 2:15 PM EDT Office Visit [facility] [address] [place] [address] [phone] Audrey Calvo MD [address] [place] [address] [phone] 12/27/2024 9:00 AM EDT Office Visit [facility] ADULT DENTAL [address] [place] [address] Liya Perez documented as of this encounter Procedures Procedure Name Priority Date/Time Associated Diagnosis Comments BI MAMMOGRAM SCREENING TOMOSYNTHESIS BILATERAL Routine 11/09/2022 8:12 AM EST documented in this encounter Results * BI Mammogram Screening Tomosynthesis Bilateral (11/09/2022 8:12 AM EST) Anatomical Region Laterality Modality Breast Bilateral Mammography 11/09/2022 8:12 AM EST Narrative 11/10/2022 8:58 AM EST ? [facility] [place] ? [address] ?[place] [address] ? Mammography Report ? Signed ? Patient: Sue,Kalyani I ?MR#: [id number] ?? 83 ? : 1955 ?Acct:[id number] ? Age/Sex: 67 / F ?ADM Date: 11/09/22 ? Loc: HO.MAMMO ? Attending Dr: Audrey Calvo MD ? Ordering Physician: Audrey Calvo MD ?Results: 1Ne ?? gative ? Date of Service: 11/09/22 ?Follow Up: 1 Year From Orig ?? inal Mammogram ? Procedure(s): MM tomosynthesis screening BI ?? Accession Number(s): [id number] ? cc: Audrey Calvo MD ? EXAMINATION: [...] ?11/10/22854 ? DD/ 1 ? TD/TT: ? Fork Operator: SK ? Procedure Note Ricky Guevara - 11/10/2022 [facility] [address] [place] [address] Dr. [place], [place] [address] Mammography Report Signed Patient: Kalyani Rogers [facility]#: [id number] : 7Acct:[id number] Age/Sex: 67 / FADM Date: 11/09/22 Loc: HO.MAMMO Attending Dr: Audrey Calvo MD Ordering Physician: Audrey Calvoesults: 1Ne gative Date of Service: 11/09/22Follow Up: 1 Year From Orig inal Mammogram Procedure(s): MM tomosynthesis screening BI Accession Number(s): [id number] cc: Audrey Calvo MD EXAMINATION: MM SCREENING [...] in OV> 11/10/22 0855 DD/ 0812 TD/TT: Fork Operator: SK [facility] External Provider IMG BI PROCEDURES Edited Result - Final documented in this encounter Visit Diagnoses Not on filedocumented in this encounter Care Teams Construction Trench Digger Relationship Specialty Start Date End Date Audrey Calvo MD [address] [place] [phone] PCP - General Family Medicine 05/09/17 documented as of this encounter
--- OUTSIDE RECORDS SUMMARY | 2024-11-13 17:31 | XMS_ITS | Encounter Summary ---
Author Organization [employer] Address 75 [facility] 7t [place] [address] Care Team Providers Care Digital Color Press Operator Name Role Phone Audrey Calvo MD Primary Care Provider + Encounter Details Date Type Department Care Team ([facility] st Contact Info) Description 10/17/2024 Orders Only [facility] PEDS [address] [place], [place] [phone] Teresa Packer FNP 505 [place], [place] [phone] Social History Tobacco Use Types Packs/Day Years [...] Description 12/11/2024 11:00 AM EDT Office Visit [facility] [address] [place] [address] 12/26/2024 2:15 PM EDT Office Visit [facility] [address] [place] [address] 23[address] Audrey Calvo MD [address] [place] [address] 12/27/2024 9:00 AM EDT Office Visit [facility] ADULT DENTAL [address] [place] [address] 77269 Liya Perez documented as of this encounter Procedures Procedure Name Priority Date/Time Associated Diagnosis Comments URINALYSIS, COMPLETE, WITH REFLEX TO CULTURE Routine 10/17/2024 12:01 PM EST CULTURE, URINE, ROUTINE Routine 10/17/2024 12:00 AM EST documented in this encounter Results * (ABNORMAL) Urinalysis, Complete, with Reflex to Culture (10/17/2024 12:01 PM EST) Color Urine Yellow [facility] Appearance Urine Cloudy [facility] PH 7.0 5.0 - 9.0 [facility] Glucose Urine UA 500(A) Negative mg/dL [facility] Urine Blood Negative Negative [facility] Specific [place] - Urine 1.020 1.005 - 1.025 [facility] Urine Protein Negative Neg-Trace mg/dL [facility] Urine Ketones Negative Negative mg/dL [facility] Nitrite Urine Positive(A) Negative [facility] Leukocyte Esterase Urine Small (1+)(A) Negative [facility] RBC Urine 0-2 0 - 2 /HPF [facility] Urine WBC 21-50(A) 0 - 5 /HPF [facility] Urine Squamous Epithelial Cell 3-5 0 - 2 /HPF [facility] Urine Bacteria 4+ None Seen [facility] Hyaline Casts, Urine 0-2 0 - 2 /LPF [facility] 10/17/2024 12:0 1 PM EST 10/17/2024 1:11 PM EST Narrative [facility] - 10/17/2024 1:31 PM EST Urine, Clean Catch Teresa Packer [facility] URINE ORDERABLES Final Res ult Performing Organization Address [facility]/State/[facility] Co de Phone Number [facility] [address] [place] [phone] * Culture, Urine, Routine (10/17/2024 12:00 AM EST) Urine Urine specimen obtained by clean catch procedure / Unknown 10/17/2024 10/17/2024 Comment:[facility] Narrative [facility] - 10/19/2024 7:25 AM EST Escherichia coli ESBL Note: NOTE: Extended-Spectrum Beta-Lactamase enzyme present Quant > 100,000 cfu/mL Escherichia coli: Ampicillin >=32(R) Escherichia coli: Cefazolin (Urine) >=32(R) Escherichia coli: Cefepime 16(R) Escherichia coli: Ceftriaxone >=64(R) Escherichia coli: Ciprofloxacin >=4(R) Escherichia coli: Ertapenem <=0.12(S) Escherichia coli: Gentamicin <=1(S) Escherichia coli: Nitrofurantoin <=16(S) Escherichia coli: Trimethoprim/Sulfamethoxazole <=20(S) Specimen Source: Urine clean catch Teresa Packer COMPLIANCE REPRESENTATIVE LAB MICROBIOLOGY - GENERAL ORD ERABLES Final Result [facility] [address] [place] [address] [phone] documented in this encounter Visit Diagnoses Not on filedocumented in this encounter Additional Health Concerns Assessment Noted Time PHQ-9 Depression Total Score: 3 02/14/20 24 1:55 PM EDT documented as of this encounter Care Teams Digital Color Press Operator Relationship Specialty Start Date End Date Audrey Calvo MD [address] [place] [address] [phone] PCP - General Family Medicine 05/09/17 documented as of this encounter
--- OUTSIDE RECORDS SUMMARY | 2024-11-13 17:31 | XMS_ITS | Encounter Summary ---
Author Organization [employer] Address 75 [facility] 7t [place] [address] Care Team Providers Care Computer Bookkeeper Name Role Phone Audrey Calvo MD Primary Care Provider + Reason for Visit * Reason Comments Med Refill Encounter Details Date Type Department Care Team ([facility] Contact Info) Description 10/23/[address] [facility]INE [address] [place], [place] [phone] Audrey Calvo MD 230 [place], [place] [phone] Primary hypertension Social History Tobacco Use Types [...] AM EDT Office Visit [facility]INE [address] [place] [address] 54742 12/26/2024 2:15 PM EDT Office Visit [facility] [address] [place] [address] 24009 Audrey Calvo MD [address] [place] [address] 847[address] 12/27/2024 9:00 AM EDT Office Visit [facility] ADULT DENTAL [address] [place] [address] 28841 Liya Perez documented as of this encounter Visit Diagnoses Diagnosis Primary hypertension Unspecified essential hypertension documented in this encounter Additional Health Concerns Assessment Noted Time PHQ-9 Depression Total Score: 3 02/14/20 24 1:55 PM EDT documented as of this encounter Care Teams Computer Bookkeeper Relationship Specialty Start Date End Date Audrey Calvo MD [address] [place] [address] [phone] PCP - General Family Medicine 05/09/17 documented as of this encounter
--- OUTSIDE RECORDS SUMMARY | 2024-11-13 17:31 | XMS_ITS | Encounter Summary ---
Author Organization [employer] [facility] Address [address] [place] [address] 7t [place] [address] Care Team Providers Care Lead Infrastructure Architect Name Role Phone Audrey Calvo MD Primary Care Provider + Encounter Details Date Type Department Care Team (Late st Contact Info) Description 10/07/2022 Orders Only [facility] MEDICINE [address] [place] [address] [phone] Nila Gallardo LPN Social History Tobacco Use [...] [facility] [address] [place] [address] 72474 12/26/2024 2:15 PM EDT Office Visit [facility]INE [address] [place] [address] 57823 Audrey Calvo MD [address] [place] [address] 80713 12/27/2024 9:00 AM EDT Office Visit [facility] ADULT DENTAL [address] [place] [address] 13179 Liya Perez documented as of this encounter Visit Diagnoses Not on filedocumented in this encounter Care Teams Lead Infrastructure Architect Relationship Specialty Start Date End Date Audrey Calvo MD [address] [place] [address] PCP - General Family Medicine 05/09/17 documented as of this encounter
--- OUTSIDE RECORDS SUMMARY | 2024-11-13 17:31 | XMS_ITS | Encounter Summary ---
Author Organization [employer] Address 75 [facility] 7t [place] [address] Care Team Providers Care Import/Export Agent Name Role Phone Audrey Calvo MD Primary Care Provider + Reason for Visit * Reason Onset Date Comments December10/19/2024 Encounter Details Date Type Department Care Team ([facility] Contact Info) Description 10/19/2024 Telephone [facility] [address] [place], [place] [phone] Audrey Calvo MD 230 [place] [address] December Social History Tobacco Use Types Packs/Day [...] Description 12/11/2024 11:00 AM EDT Office Visit [facility] [address] [place] [address] 67[address] 12/26/2024 2:15 PM EDT Office Visit [facility] [address] [place] [address] 21277 Audrey Calvo MD 230 [place] [address] 12/27/2024 9:00 AM EDT Office Visit [facility] ADULT DENTAL [address] [place] [address] [phone] Liya Perez documented as of this encounter Visit Diagnoses Not on filedocumented in this encounter Additional Health Concerns Assessment Noted Time PHQ-9 Depression Total Score: 3 02/14/20 24 1:55 PM EDT documented as of this encounter Care Teams Import/Export Agent Relationship Specialty Start Date End Date Audrey Calvo MD 230 [place] [address] PCP - General Family Medicine 05/09/17 documented as of this encounter
--- OUTSIDE RECORDS SUMMARY | 2024-11-13 17:31 | XMS_ITS | Encounter Summary ---
Author Organization [employer] Address [address] [facility] [address] 7t [place] [address] Care Team Providers Care Mold Dumper Name Role Phone Audrey Calvo MD Primary Care Provider + Encounter Details Date Type Department Care Team ([facility] st Contact Info) Description 12/02/[address] [facility] [address] [place], [place] [phone] Audrey Calvo MD [address] [place], [place] [phone] Social History Tobacco Use Types Packs/Day Years [...] 12/11/2024 11:00 AM EDT Office Visit [facility] [address] [place] [address] 12850 12/26/2024 2:15 PM EDT Office Visit [facility] [address] [place] [address] [phone] Audrey Calvo MD [address] [place] [address] 12/27/2024 9:00 AM EDT Office Visit [facility] ADULT DENTAL 230 [place] [address] Liya Perez documented as of this encounter Visit Diagnoses Not on filedocumented in this encounter Additional Health Concerns Assessment Noted Time PHQ-9 Depression Total Score: 0 12/23/19 23 9:08 AM EDT documented as of this encounter Care Teams Mold Dumper Relationship Specialty Start Date End Date Audrey Calvo MD [address] [place] [address] PCP - General Family Medicine 05/09/17 documented as of this encounter
--- OUTSIDE RECORDS SUMMARY | 2024-11-13 17:31 | XMS_ITS | Encounter Summary ---
Author Organization [employer] Address 75 [facility] 7t [place] [address] Care Team Providers Care Studio Operation Engineer Name Role Phone Audrey Calvo MD Primary Care Provider + Reason for Visit * Reason Comments Med Refill Encounter Details Date Type Department Care Team ([facility] Contact Info) Description 09/20/2024 Refill [facility] 230 [place], [place] [phone] Audrey Calvo MD 230 [place], [place] [phone] Chronic rhinitis Social History Tobacco Use Types [...] EDT Office Visit [facility] [address] [place] [address] 35483 12/26/2024 2:15 PM EDT Office Visit [facility] [address] [place] [address] 48614 Audrey Calvo MD [address] [place] [address] 47315 12/27/2024 9:00 AM EDT Office Visit [facility] ADULT DENTAL [address] [place] [address] 88106 Liya Perez documented as of this encounter Visit Diagnoses Diagnosis Chronic rhinitis documented in this encounter Additional Health Concerns Assessment Noted Time PHQ-9 Depression Total Score: 3 02/14/20 24 1:55 PM EDT documented as of this encounter Care Teams Studio Operation Engineer Relationship Specialty Start Date End Date Audrey Calvo MD [address] [place] [address] 10223 PCP - General Family Medicine 05/09/17 documented as of this encounter
== END 2024-11-13 08:49 | disposition home or self-care (01) ==
LOC: HO.LNP 08:48
PROVIDERS: PCP Internal Medicine; Visit Provider Physician Assistant Surgical
DX: R39.9 Unspecified symptoms and signs involving the genitourinary system (principal); Z90.3 Acquired absence of stomach [part of]; E11.65 Type 2 diabetes mellitus with hyperglycemia; E78.5 Hyperlipidemia, unspecified; E55.9 Vitamin D deficiency, unspecified
CPT/HCPCS: 87086; 87088; 87186; 99212

== ENCOUNTER 2024-11-13 08:48 | Outpatient (AMB) | payer OTHER, SELFPAY ==
--- NOTE | 2024-11-13 08:51 | A.OFFVIS_ITS ---
VS Expanded 11/13/24 08:54 BP 206/88 H Blood Pressure Location Lt radial Blood Pressure Position Sitting Pulse 75 Pulse Oximetry 99 Height 5 ft 3 in Weight 187 lb 3.2 oz BMI 33.2 Body Fat % 40.4 Body Fat Mass 75.6 Fat Free Mass 111.6 Visceral Fat Rating 12.0 Body Water % 42.0 Body Water Mass 78.8 Muscle Mass/Score 105.8 Basal Metabolic Rate/Score 1,527 Intake Visit Reasons: (OV) LSG 10/31/2018 Coach Required: Yes Coach Services: Coach Present Coach Name: hospital cmi Allergies pollen extracts Allergy (Severe, Verified 11/13/24 08:52) Shortness of Breath Medication List - Last Reconciled 11/13/24 by JOSE ELIAS Rodriguez albuterol sulfate 90 mcg/actuation 2 puffs PO Q4-6H PRN alcohol swabs (Alcohol Prep Pads) 1 pad topical QID alirocumab (Praluent Pen) 150 mg subcut Q2W amlodipine 10 mg PO DAILY blood pressure test kit-large As directed blood sugar diagnostic As directed blood sugar diagnostic (FreeStyle Lite Strips) As directed blood-glucose meter (FreeStyle Lite Meter kit) As directed blood-glucose meter (FreeStyle Lite Meter kit) As directed- checks 4 X/day calcium carbonate-vitamin D3 600 mg-20 mcg (800 unit) 1 tab PO BID chlorthalidone 25 mg PO DAILY cholecalciferol (vitamin D3) 50 mcg PO DAILY dulaglutide (Trulicity) mg subcut QWEEK enalapril maleate 20 mg PO DAILY esomeprazole magnesium 40 mg PO QAM ezetimibe 10 mg PO QAM famotidine (Pepcid) 20 mg PO BEDTIME flash glucose scanning reader (FreeStyle Marcos 2 Pingree) As directed flash glucose sensor (FreeStyle Marcos 2 Sensor kit) USE DIRECTED. CHANGE EVERY 14 DAYS fluticasone propionate 110 mcg/actuation 1 puff inhalation BID insulin glargine (Lantus Solostar U-100 Insulin) 10 units (0.1 mL) subcut QPM lancets (TRUEplus Lancets) As directed loratadine 10 mg PO DAILY metformin 1,000 mg PO metoprolol succinate ER 50 mg PO DAILY nogiaftx-opz-AF-lycopen-lutein 0.4 mg-300 mcg- 250 mcg (Complete Multivitamin Adult 50 Plus) 1 tab PO DAILY nebivolol 5 mg PO DAILY oxycodone-acetaminophen 5-325 mg 1 tab PO Q8H PRN pen needle, diabetic (BD Ultra-Fine Tracie Pen Needle) injects once a day phenazopyridine (Pyridium) 100 mg PO TID PRN 6 doses pregabalin 75 mg PO BEDTIME rosuvastatin 40 mg PO BEDTIME sennosides (Natural Senna Laxative) 17.2 mg (2 x 8.6 mg) PO BEDTIME HPI Comments Details: 69-year-old female returns to the office today in follow-up. She is approximately 6 years post sleeve gastrectomy performed on 10/31/2018. She was last seen in the office 04/04/2023 and has been lost to follow-up. Her weight at that time was 184.4 lb with a BMI of 32.7. Weight today is 187.2 lb with a BMI of 33.2. Of note, she did have accelerated blood pressure with a reading of 206/88. She reports not taking her medications today. She takes them at approximately 10:00. She states that she also received bad news today. Wakes at 5 am Meal Plan: nothing structured 60-80 oz water Exercise plan: none Any post op complications: none SILVIA: Supposed to be on CPAP but has not yet received DM: Continues on medications HTN: Continues on medications Hyperlipidemia: Continues on medications GERD:?0-5 scale ??0 = no symptoms ??1 = symptoms noticeable but not bothersome 2 =symptoms bothersome but not daily ? 3 = symptoms bothersome and daily 4 = symptoms affect daily activities 5 = symptoms are incapacitating, unable to do daily activities ? How bad is the heartburn: 4 ? Heartburn while lying down: 4 ? Heartburn when standing up: 4 ? Heartburn after meals: 4 ? Does heartburn change your diet: 4 ? Does heartburn wake you up from sleep: 4 ? Do you have difficulty swallowin ? Do you have pain with swallowin ? If you take medicine for your reflux, does this affect your daily life: 4 Satisfaction with present condition - satisfied or not satisfied: not satisfied [facility] Medical History Skin lesion of right leg Varicosities of leg Uncontrolled type 2 diabetes mellitus Diabetic polyneuropathy associated with type 2 diabetes mellitus Vitamin D deficiency Hypertension Diabetes type 2, controlled History of diverticulosis Hx of diverticulitis of colon Dyslipidemia Surgical History History of surgical removal of skin lesion (~08/23/24) History of surgery on lower extremity History of sleeve gastrectomy Hx of excision of mass Hx of colonoscopy Hx of cholecystectomy History of carpal tunnel release Hx of tubal ligation Hx of foot surgery Family History Father Hypertension Mother No problems noted. Son No problems noted. Son No problems noted. Daughter Hypertension Asthma Obesity Muscle spasm Acute depression Sister No problems noted. Sister No problems noted. Brother No problems noted. Brother No problems noted. Brother No problems noted. Brother No problems noted. Brother No problems noted. Social History Household Members: Family Housing: Apartment Do you presently have visiting nurse or other home services: Yes Alcohol intake: never Patient Tobacco Use Status: Never used Tobacco Advance Directives Date on File: 09/17/21 service: No Current occupational status: unemployed Review of Systems Reports other (Urinary symptoms including malodor and discomfort) Physical Exam Vital Signs: Last Vital Signs Pulse 75 11/13/24 08:54 Pulse Ox 99 11/13/24 08:54 Const General: cooperative and no acute distress Orientation/consciousness: patient oriented x3 Resp Effort & Inspection: normal respiratory effort Auscultation: clear to auscultation bilaterally Cardio Rate: regular rate Rhythm: regular rhythm GI Inspection: Yes normal to inspection and Yes incision (well healed) Palpation (GI): Soft to palpation and no masses Neuro General: patient oriented x3 Assessment & Plan Assessment & Plan (1) History of sleeve gastrectomy: Comment: [facility] Aug 2019. Code(s): Z90.3 - Acquired absence of stomach [part of] Category: Surgical Plan: Patient has not been seen in approximately a year and a half. We will check vitamin labs. Start new meal plan: 6-8 am celebrate rebuild, 1 scoop in 8 oz of 1% milk 10-12 pm another shake 2-4 pm celebrate protein bar 5 pm meal with 6 forks of protein and 6 forks of vegetables 630 pm an apple or half cup fresh berries Patient goes to [facility] from 7-9 p.m.. She will go to sleep around 22:00. Discussed the importance of exercise. Given paperwork for discount to the [employer]. She has history of sleep apnea and has not received her machine in 4 months. She additionally is complaining of persistent urinary symptoms despite treatment with antibiotics. I called her primary care physician's office in front of her and alerted them to her situation and they will give her a call today to arrange for follow-up visit. Return to the office 1 month Orders: Orders Complete Blood Count Auto Diff Today E11.65 - Type 2 diabetes mellitus with hyperglycemia, E55.9 - Vitamin D deficiency, unspecified, E78.5 - Hyperlipidemia, unspecified, Z90.3 - Acquired absence of stomach [part of] Lipid Panel Today E11.65 - Type 2 diabetes mellitus with hyperglycemia, E55.9 - Vitamin D deficiency, unspecified, E78.5 - Hyperlipidemia, unspecified, Z90.3 - Acquired absence of stomach [part of] Vitamin B12 and Folate Today E11.65 - Type 2 diabetes mellitus with hyperglycemia, E55.9 - Vitamin D deficiency, unspecified, E78.5 - Hyperlipidemia, unspecified, Z90.3 - Acquired absence of stomach [part of] Ferritin Today E11.65 - Type 2 diabetes mellitus with hyperglycemia, E55.9 - Vitamin D deficiency, unspecified, E78.5 - Hyperlipidemia, unspecified, Z90.3 - Acquired absence of stomach [part of] Vitamin A Today E11.65 - Type 2 diabetes mellitus with hyperglycemia, E55.9 - Vitamin D deficiency, unspecified, E78.5 - Hyperlipidemia, unspecified, Z90.3 - Acquired absence of stomach [part of] Vitamin D 25-OH Total Today E11.65 - Type 2 diabetes mellitus with hyperglycemia, E55.9 - Vitamin D deficiency, unspecified, E78.5 - Hyperlipidem ia, unspecified, Z90.3 - Acquired absence of stomach [part of] Vitamin B1 Today E11.65 - Type 2 diabetes mellitus with hyperglycemia, E55.9 - Vitamin D deficiency, unspecified, E78.5 - Hyperlipidemia, unspecified, Z90.3 - Acquired absence of stomach [part of] IRON PROFILE Today E11.65 - Type 2 diabetes mellitus with hyperglycemia, E55.9 - Vitamin D deficiency, unspecified, E78.5 - Hyperlipidemia, unspecified, Z90.3 - Acquired absence of stomach [part of] Zinc Today E11.65 - Type 2 diabetes mellitus with hyperglycemia, E55.9 - Vitamin D deficiency, unspecified, E78.5 - Hyperlipidemia, unspecified, Z90.3 - Acquired absence of stomach [part of]
[2024-11-13 08:54] VITALS: BP 206/88; PULSE 75; O2SAT 99; BMI 33.2
--- OUTSIDE RECORDS SUMMARY | 2024-11-13 09:29 | XMS_ITS | Encounter Summary ---
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 No 07/04/2023 Depression Answer Date Recorded Patient Health Questionnaire-2 Score 2 02/14/2024 Comments No Sex and Gender Information Value Date Recorded Sex Assigned at Female 07/19/2022 10:17 AM EDT Legal Sex Female 10:17 AM EDT Gender Identity Female 07/19/2022 10:17 AM EDT Sexual Orientation Straight 07/19/2022 10 :17 AM EDT documented as of this encounter Progress Notes * Teresa Packer, LENCHO - 10/16/2024 11:00 AM EST Subjective: Kalyani Rogers is a 69 y.o. female w/ PMH hypertension, T2DM, SILVIA, OA bilat knees, cervical spondylosis, who presents to the office for - Chronic Pain Clinic Group visits. Initial Group visit: 02/28/24 Group Visit Number: 5 Last PCP visit: 02/14/24, Dr. Calvo Group Confidentiality last signed: 02/28/24 Group Topic: Functional Goal Setting - Family health stressors with her daughter. Has social support. Additional concern today of urinary symptoms - intermittent malodor and bubbles in urine. Denies hematuria. Also interested in checking her kidney function. BMP and urine studies ordered. Chronic Pain History: Associated Diagnosis: osteoarthritis of bilateral knees, cervical spondylosis Relevant Imaging: XR left knee 07/10/24: Mild osteoarthritis. No fracture or joint effusion. MRI Cervical Spine 12/11/12: ???Mild cervical spondylosis as described, more significant at C5-C6 and C6-C7. Mild to moderate bilateral foraminal narrowing at the C6-C7 level. Current pharm tx: Medication: Percocet 10-325mg Q12H PRN. States taking medication as prescribed. Also tx with Lyrica 75mg nightly Ibuprofen PRN Non-pharm tx: cane, walker Review of Systems Constitutional: Negative for chills and fever. Respiratory: Negative for wheezing. Cardiovascular: Negative for chest pain and palpitations. Gastrointestinal: Negative for diarrhea and vomiting. Musculoskeletal: Positive for arthralgias. Physical Exam Constitutional: Appearance: Normal appearance. Pulmonary: Effort: Pulmonary effort is normal. Neurological: Mental Status: She is alert and oriented to person, place, and time. Psychiatric: Mood and Affect: Mood normal. Behavior: Behavior normal. Problem List Items Addressed This Visit Musculoskeletal Osteoarthritis of knee - Primary Overview XR left knee 07/10/24: Mild osteoarthritis. No fracture or joint effusion. Current Assessment & Plan -Good engagement and participation with Group Medical Visit model -Encouraged multifactorial approach to pain control including pharm and non- pharm modalities -UTOX and Pill count as expected Relevant Orders POCT CHIQUITA-14 Urine Drug Screen (Completed) Cervical spondylosis Overview MRI Cervical Spine 12/11/12: ???Mild cervical spondylosis as described, more significant at C5-C6 and C6-C7. Mild to moderate bilateral foraminal narrowing at the C6-C7 level. Other care home current use of opiate analgesic Overview Medication: Percocet 10-325mg Q12H PRN Indication: cervical spondylosis, bilat knee OA Last LUBRICATING SPECIALIST Agreement: 10/16/24 Tier III (LUBRICATING SPECIALIST visit every 4-6 months) Current Assessment & Plan Timeline: -12/08/23: Indv RN visit, Utox/pill count WNL -02/28/24: Group visit, Utox/pill count WNL -03/27/24: Group visit, Utox/pill count WNL -06/12/24: Group visit, Utox/pill count WNL -08/14/24: Group visit, Utox/pill count WNL -10/16/24: Group visit, Utox/pill count WNL. Agreement renewed. Other Visit Diagnoses Urinary symptom or sign - UA suggestive of UTI, tx with Bactrim. Reviewed med safety and SE - Also noted glucosuria. Reports some elevated BG readings at home in the 200s PP. - Reports planning to schedule follow up with PCP for T2DM management Relevant Orders Urinalysis with reflex microscopic Basic Metabolic Panel (Completed) Follow up: 4-6 months for Group Chronic Pain Clinic. Follow up as scheduled with PCP, sooner as needed. * Mey Vargas RN - 10/16/2024 11:00 AM EST LUBRICATING SPECIALIST sea shell gatherer: PDMP reviewed today. Last fill date: 09/10/24 Percocet 10mg count was 56, anticipated 56 to be remaining. UTOX completed. Positive for OXY, Negative for AMP, BAR, BUP, BZO, TERE, FTY, MDMA, MET, MOP, MTD, PCP, TCA, THC. UTOX as expected. LUBRICATING SPECIALIST Agreement signed today BPI updated today. Pain severity score of 8, activity interference score of 5.6. Previous BPI completed 06/12/24 with pain severity score of 7, activity interference score of 5. Will update PCP with BPI scoring. 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 Agreement renewed. -Good engagement and participation with Group Medical Visit model -Encouraged multifactorial approach to pain control including pharm and non- pharm modalities -UTOX and Pill count as expected * Assessment & Plan Note - LENCHO Collado - 10/18/2024 4:56 PM ESTAssociated Problem(s): Osteoarthritis of knee -Good engagement and participation with Group Medical Visit model -Encouraged multifactorial approach to pain control including pharm and non- pharm modalities -UTOX and Pill count as expected documented in this encounter Plan of Treatment Upcoming Encounters Date Type Department Care Team (Late st Contact Info) Description 12/11/2024 11:00 AM EDT Office Visit [facility] [address] [place] [address] 12/26/2024 2:15 PM EDT Office Visit [facility] [address] [place] [address] Audrey Calvo MD [address] [place] [address] 12/27/2024 9:00 AM EDT Office Visit [facility] [address] [place] [address] Liya Perez Scheduled Orders Name Type Priority Associated Diagnoses [...] EST) Sodium 142 135 - 145 mmol/L [facility] Potassium 4.6 3.3 - 5.1 mmol/L [facility] Comment:Slight Hemolysis.Int erpret result with caution. Chloride 106 96 - 108 mmol/L [facility] Carbon Dioxide 28 22 - 29 mmol/L [facility] Anion Gap 13 12 - 20 [facility] Urea Nitrogen (BUN) 9 9 - 16 mg/dL [facility] Creatinine, Serum 0.68 0.5 - 1.4 mg/dL [facility] Estimated Glomerular Filt Rate >60 [facility] Comment:Chronic Kidney Disea se: Estimated GFR < 60 mL/min/[id number] Kidney Disease: Estimated GFR < 15 mL/min/1.73m2 Glucose 124(H) 60 - 115 mg/dL [facility] Calcium 9.7 8.4 - 10.2 mg/dL [facility] Blood Venous blood specimen / Unknown 10/17/2024 12:01 PM EST 10/17/2024 1:40 PM EST Teresa MUSA LAB BLOOD ORDERABLES Final Res ult [facility] [address] [place] [phone] * POCT CHIQUITA-14 Urine Drug Screen (10/16/2024 2:02 PM EST) Oxycodone Screen, Urine Positive Urine Urine specimen obtained by clean catch procedure / Unknown 10/16/2024 2:02 PM EST Mey Oliveira RN - 10/16/2024 2:02 PM EST UTOX cup Lot#[id number] Exp. 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
--- OUTSIDE RECORDS SUMMARY | 2024-11-13 09:29 | XMS_ITS | Encounter Summary ---
Author Organization [employer] Address [address] [place] [address] Care Team Providers Care Asbestos Removal Supervisor Name Role Phone Audrey Calov MD Primary Care Provider + Reason for Visit * Reason Onset Date Comments Med Refill 10/15/2024 Encounter Details Date Type Department Care Team (Late st Contact Info) Description 10/15/2024 Refill [facility] [address] [place], [place] [phone] Audrey Calvo MD [address] [place] [address] Achilles tendinitis of right lower extremity Social [...] the past 12 months, has t he [employer], [employer], oil or water [email or web address] threatened to shut off services in your [...] Miscellaneous Notes * Addendum Note - Mey Palomino RN - 10/15/2024 11:49 AM ESTAddended by: MEY PALOMINO on: 10/15/2024 11:49 AM Modules accepted: Orders * Telephone Encounter - Nila Gallardo LPN - 10/15/2024 11:35 AM EST Received request on oxyCODONE-acetaminophen (Percocet) 10-325 MG tablet documented in this encounter Plan of Treatment Upcoming Encounters Date Type Department Care Team (Late st Contact Info) Description 12/11/2024 11:00 AM EDT Office Visit [facility] [address] [place] [phone] 12/26/2024 2:15 PM EDT Office Visit [facility] [address] [place] [phone] Audrey Calvo MD [address] [place] [phone] 12/27/2024 9:00 AM EDT Office Visit [facility] [address] [place] [address] Liya Perez documented as of this encounter Visit Diagnoses Diagnosis Achilles tendinitis of right lower extremity documented in this encounter Additional Health Concerns Assessment Noted Time PHQ-9 Depression Total Score: 3 02/14/20 24 1:55 PM EDT documented as of this encounter Care Teams Asbestos Removal Supervisor Relationship Specialty Start Date End Date Audrey Calvo MD [address] [place] [address] PCP - General Family Medicine 05/09/17 documented as of this encounter
--- OUTSIDE RECORDS SUMMARY | 2024-11-13 09:29 | XMS_ITS | Encounter Summary ---
Author Organization [employer] Address [address] [place] [address] Care Team Providers Care Institutional Cook Name Role Phone Audrey Calvo MD Primary [...] Description 12/11/2024 11:00 AM EDT Office Visit [facility] [address] [place] [phone] 12/26/2024 2:15 PM EDT Office Visit [facility] [address] [place] [phone] Audrey Calvo MD [address] [place] [phone] 12/27/2024 9:00 AM EDT Office Visit [facility] [address] [place] [phone] Liya Perez documented as of this encounter Visit Diagnoses Not on filedocumented in this encounter Additional Health Concerns Assessment Noted Time PHQ-9 Depression Total Score: 3 02/14/20 24 1:55 PM EDT documented as of this encounter Care Teams Institutional Cook Relationship Specialty Start Date End Date Audrey Calvo MD [address] [place] [phone] PCP - General Family Medicine 05/09/17 documented as of this encounter
--- OUTSIDE RECORDS SUMMARY | 2024-11-13 09:29 | XMS_ITS | Encounter Summary ---
Author Organization [employer] Address [address] [place] [address] Care Team Providers Care Air Bag Buffer Name Role Phone Audrey Calvo MD Primary Care Provider + Encounter Details Date Type Department Care Team (Late st Contact Info) Description 06/29/2023 Orders Only [facility] [address] [place], [place] [phone] Emi Gill LPN Social History Tobacco Use [...] Description 12/11/2024 11:00 AM EDT Office Visit [facility] [address] [place] [phone] 12/26/2024 2:15 PM EDT Office Visit [facility] [address] [place] [address] Audrey Calvo MD [address] [place] [phone] 12/27/2024 9:00 AM EDT Office Visit [facility] [address] [place] [address] Liya Perez documented as of this encounter Visit Diagnoses Not on filedocumented in this encounter Additional Health Concerns Assessment Noted Time PHQ-9 Depression Total Score: 0 12/23/19 23 9:08 AM EDT documented as of this encounter Care Teams Air Bag Buffer Relationship Specialty Start Date End Date Audrey Calvo MD [address] [place] [phone] PCP - General Family Medicine 05/09/17 documented as of this encounter
--- OUTSIDE RECORDS SUMMARY | 2024-11-13 09:29 | XMS_ITS | Clinical Summary ---
Author Organization [employer] Address [address] [facility] [address] [place] [address] Care Team Providers Care Surfboard Designer Name Role Phone Audrey Calvo MD Primary Care Provider + Allergies Active Allergy Reactions Criticality Noted Date Comments Aspirin 08/15/2018 Medications FREESTYLE LITE test stripIndications :Type 2 diabetes mellitus with unspecified complications ([facility]) TEST BLOOD SUGAR TWICE DAILY 100 strip 11 023 Active TRUEplus Lancets 33G miscIndications: Type 2 diabetes mellitus with unspecified complications ([facility]) TEST BLOOD SUGAR TWICE DAILY 100 [...] hyperglycemia, without long-term current use of insulin ([facility]) INJECT ONE PEN (= 3MG) SUBCUTANEOUSLY ONCE A WEEK DIRECTED 2 mL Active metFORMIN (Glucophage) 500 MG tablet TAKE 2 TABLETS BY MOUTH TWICE DAILY IN THE MORNING AND EVENING WITH MEALS 360 tablet 3 Active Lantus SoloStar 100 UNIT/ML penIndications:T ype 2 diabetes mellitus with hyperglycemia, without long-term current use of insulin ([facility]) Inject 15 units subcutaneously every evening 3 mL Active capsaicin (Capzasin-HP) 0.1 % creamIndications :Primary osteoarthritis of both knees,Other chronic pain Apply thin layer by topical route up to 4 times daily for pain. 45 g 3 Active hydrocortisone 2.5 % ointmentIndicati ons:Dermatitis APPLY TO THE AFFECTED AREA(S) ON HAND TWICE DAILY FOR ONE WEEK. CALL DOCTOR IF SYMPTOMS PERSIST. 28.35 g 1 024 Active Continuous Glucose Sensor (FreeStyle Marcos 2 Sensor) misc TEST BLOOD SUGAR DIRECTED. CHANGE EVERY 14 DAYS 6 each 3 024 2024 Active clotrimazole (Lotrimin) 1 % creamIndications :Candidiasis of perineum APPLY TOPICALLY TO THE AFFECTED AREA(S) TWICE DAILY 30 g 2 Active pantoprazole (ProtoNix) 40 MG EC tabletIndication s:Gastroesophage al reflux disease without esophagitis Take 1 tablet (40 mg) by mouth in the morning. Do not crush, chew, or split. 30 tablet 024 Active Diclofenac Sodium 1 % gelIndications:P rimary osteoarthritis of both knees,Other chronic pain APPLY 2 GRAMS TOPICALLY TO AFFECTED AREA(S) THREE TIMES DAILY NEEDED FOR PAIN 100 g 1 024 Active Alcohol Swabs (Alcohol Prep) 70 % pads USE DIRECTED UP TO 4 TIMES PER DAY 100 each 11 Active metoprolol succinate XL (Toprol-XL) 50 MG 24 hr tabletIndication s:Primary hypertension TAKE 1 TABLET BY MOUTH EVERY MORNING 30 tablet 3 024 Active rosuvastatin (Crestor) 40 MG tablet TAKE 1 TABLET BY MOUTH AT BEDTIME 90 tablet 3 024 Active amLODIPine (Norvasc) 10 MG tablet TAKE [...] Active cholecalciferol (D3 Super Strength) 50 MCG (1999 UT) capsule TAKE 1 CAPSULE BY MOUTH EVERY MORNING 90 capsule 3 025 Active Praluent 150 MG/ML injection INJECT 150 MG SUBCUTANEOUSLY EVERY 2 WEEKS 2 mL 1 025 Active pregabalin (Lyrica) 75 MG capsuleIndicatio ns:Diabetic polyneuropathy associated with type 2 diabetes mellitus (CMS/HCC) TAKE 1 CAPSULE BY MOUTH AT BEDTIME 30 capsule 2 025 Active lidocaine (Lidoderm) 5 % patchIndications :Primary osteoarthritis of both knees,Other chronic pain APPLY 1 PATCH TOPICALLY TO SKIN, LEAVE ON FOR 12 HOURS AND OFF FOR 12 HOURS DIRECTED 30 patch 3 025 Active enalapril (Vasotec) 20 MG tabletIndication s:Primary hypertension TAKE 1 TABLET BY MOUTH EVERY MORNING 90 tablet 1 025 Active oxyCODONE-acetam inophen (Percocet) 10-325 MG tabletIndication s:Achilles tendinitis of right lower extremity Take 1 tablet by mouth every 12 (twelve) hours if needed for severe pain for up to 28 days. Do not start before November 13, 2024. 56 tablet 025 2024 Active enalapril (Vasotec) 20 MG tabletIndication s:Primary hypertension TAKE 1 TABLET BY MOUTH EVERY MORNING 90 tablet 1 024 2024 Discontinued lidocaine (Lidoderm) 5 % patchIndications :Primary osteoarthritis of both knees,Other chronic pain APPLY 1 PATCH TOPICALLY TO SKIN, LEAVE ON FOR 12 HOURS AND OFF FOR 12 HOURS DIRECTED 30 patch 3 024 2024 Discontinued pregabalin (Lyrica) 75 MG capsuleIndicatio ns:Diabetic polyneuropathy associated with type 2 diabetes mellitus (CMS/HCC) TAKE 1 CAPSULE BY MOUTH AT BEDTIME 30 capsule 2 024 2024 Discontinued Praluent 150 MG/ML injection INJECT 150 MG SUBCUTANEOUSLY EVERY 2 WEEKS 2 mL 1 024 2024 Discontinued oxyCODONE-acetam inophen (Percocet) 10-325 MG tabletIndication s:Achilles tendinitis of right lower extremity TAKE 1 TABLET BY MOUTH EVERY TWELVE HOURS NEEDED FOR SEVERE PAIN 56 tablet 024 2024 Discontinued(R eorder (will not trigger notification to Pharmacy)) oxyCODONE-acetam inophen (Percocet) 10-325 MG tabletIndication s:Achilles tendinitis of right lower extremity Take 1 tablet by mouth every 12 (twelve) hours if needed for severe pain for up to 28 days. 56 tablet 025 2024 Discontinued(R eorder (will not trigger notification to Pharmacy)) sulfamethoxazole -trimethoprim (Bactrim DS) 800-160 MG tabletIndication s:Urinary Tract Infection Take 1 tablet by mouth 2 times daily for 3 days. 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 Counseled re moderate exercise as tolerated, up to 20min/d Patient feels safe at home. PAP smear: Overdue , patient wants to be referred to BISTRO ATTENDANT. Mammogram Overdue, I will schedule mammo. Bone [...] scheduled for PAP smear, will refer to seismometer operator Mammogram: up to date, next one due [...] between Reminded Pt to be compliant with [employer] Tubular adenoma of colon 07/17/2018 Calcaneal spur [...] on 08/2023, rx for CPAP sent to [facility] on 11/03/23 Patient will fu with [facility] re provider for CPAP She's aware that [...] fracture or joint effusion. Assessment & Plan (10/18/2024 4:56 PM EST): -Good engagement and participation with Group Medical Visit model -Encouraged multifactorial approach to pain control including pharm and non- pharm modalities -UTOX and Pill count as expected Assessment & Plan (06/14/2024 10:33 AM EDT): [...] of multiple topical analgesics after discussion with [facility] Pharmacist - meds sent to pharmacy below. [...] on oxycodone PRN Continue close fu with [employer] program We have done [employer] education re [...] Resolved Date Chronic bronchitis 10/20/2022 Diabetic polyneuropathy 03/10/201101/18 Assessment & Plan (11/18/2022 2:22 PM EST): [...] Encounters Date Type Department Care Team Description 11/13/2024 Telephone [facility] MEDICINE [address] [place], [place] [phone] Audrey Calvo MD 11/08/2024 Refill [facility] & PEDS [address] [place], [place] [phone] Audrey Calvo MD Achilles tendinitis of right lower extremity 10/30/2024 Telephone [facility] MEDICINE [address] [place], [place] [phone] Audrey Calvo MD Appointment Request 10/23/2024 Refill [facility] MED[facility]INE [address] [place], [place] [phone] Audrey Calvo MD Primary hypertension 10/21/2024 Refill [facility] MEDICINE [address] [place], [place] [phone] Audrey Calvo MD Diabetic polyneuropathy associated with type 2 diabetes mellitus (CMS/HCC); Primary osteoarthritis of both knees; Other chronic pain 10/19/2024 Telephone [facility] MED[facility] [address] [place] [address] Audrey Calvo MD Ping recall 10/19/2024 Refill [facility] MED[facility]INE [address] [place] [address] Audrey Calvo MD 10/17/2024 Orders Only [facility] [address] [place] [address] Teresa Packer POUNCER 10/16/2024 11:00 AM EST Office Visit [facility] MED[facility]INE [address] [place] [phone] Teresa Packer, POUNCER Primary osteoarthritis of both knees (Primary Dx); Cervical spondylosis; manager intermediate current use of opiate analgesic; Urinary symptom or sign 10/16/2024 Telephone [facility]INE [address] [place] [phone] Mey Vargas RN [employer] signed today 10/16/2024 Travel 10/15/2024 Refill [facility] [address] [place] [address] Audrey Calvo MD Achilles tendinitis of right lower extremity 09/28/2024 Refill [facility] MED[facility]INE [address] [place] [phone] Audrey Calvo MD Chronic rhinitis; HTN (hypertension), benign 09/24/2024 9:00 AM EST Office Visit [facility] ADULT DENTAL [address] [place] [phone] Liya Perez Dental calculus (Primary Dx); Dental plaque; Periodontal disease 09/20/2024 Refill [facility] MEDICINE [address] [place] [address] Audrey Calvo MD Chronic rhinitis 09/06/2024 Telephone [facility] MED[facility]INE [address] [place] [phone] Audrey Calvo MD 09/06/2024 Telephone [facility] [address] [place] [phone] Audrey Calvo MD Med Refill 09/06/2024 Telephone [facility]INE [address] [place] [phone] Audrey Calvo MD Med Refill 09/04/2024 Refill [facility] [address] [place] [address] Audrey Calvo MD Achilles tendinitis of right lower extremity 08/24/2024 Refill [facility] [address] [place] [address] Audrey Calvo MD 08/23/2024 Orders Only GENERIC EXTERNAL DATA DEPARTMENT Provider, Generic External Data 08/22/2024 Telephone [facility] ADULT DENTAL [address] [place] [address] Liya Perez 08/22/2024 Refill [facility] MED[facility]INE [address] [place] [address] Audrey Calvo MD 08/14/2024 11:00 AM EST Office Visit [facility] [address] [place] [address] Teresa Packer FNP Cervical spondylosis (Primary Dx); Primary osteoarthritis of both knees; manager intermediate current use of opiate analgesic 08/14/2024 Telephone [facility] [address] [place] [address] Teresa Packer FNP STE[employer] P[employer] HELPER: Tier System Update 08/14/2024 Travel 08/13/2024 Telephone [facility] MED[facility]INE [address] [place] [address] Phu Dang MD from Last 3 Months Immunizations Name [...] Description 12/11/2024 11:00 AM EDT Office Visit [facility] MED[facility] [address] [place] [phone] 12/26/2024 2:15 PM EDT Office Visit [facility] MED[facility]INE [address] [place] [phone] Audrey Calvo MD [address] [place] [phone] 12/27/2024 9:00 AM EDT Office Visit [facility] ADULT DENTAL [address] [place] [phone] Liya Perez Health Maintenance Due Date Last Done Comments CT Colonography 1957 FIT DNA/Cologuard 1957 FIT 1955 FOBT 1955 Sigmoidoscopy 1955 Eye Exam 1967 Hepatitis C Screening 1975 RSV Patients and Patients Aged 60 years or older (1 - Risk 60-74 years 1-dose series) 2017 Diabetes: Urine Protein Screening 03/02/2022 03/02/2021, 08/08/2020 Zoster Vaccines (3 of 3) 02/17/2024 12/23/2023, 02/2019 Diabetes: Hemoglobin A1C 05/16/2024 024, 10/20/2023, 07/29/2023, [...] 24, 09/05/2019, 08/15/2018 Tobacco Screening 09/24/2025 09/24/2024 Pneumococcal Vaccine: 50+ Years (3 of 3 - PCV20 or PCV21) 10/27/2026 10/27/2021, 04/01/2017, 09/05/2002 Dental X-Ray: Full Mouth 07/28/2027 07/27/2024, 07/21 [...] 12:01 PM EST Urinary symptom or sign CULTURE, URINE, ROUTINE Routine 10/17/2024 12:00 AM EST POCT CHIQUITA-14 URINE DRUG SCREEN Routine 10/16/2024 2:02 PM EST Primary osteoarthritis of both knees CASE PRESENTATION, DETAILED AND EXTENSIVE TREATMENT PLANNING Routine 09/24/2024 [...] EST Dental calculus Dental plaque Periodontal disease VASC US LOWER EXTREMITY VENOUS DUPLEX BILATERAL Routine 09/04/2024 10:10 AM EST GROSS AND MICROSCOPIC LEVEL 3 Routine 08/23/2024 10:22 AM EST POCT CHIQUITA-14 URINE DRUG SCREEN Routine 08/14/2024 1:48 PM EST Primary osteoarthritis of both knees long-term current use of opiate analgesic PROPHYLAXIS - ADULT Routine 07/27/2024 1 0:00 AM EST Dental plaque Dental calculus INTRAORAL - COMPLETE SERIES OF RADIOGRAPHIC IMAGES Routine 07/27/2024 10:00 AM EST PERIODIC ORAL EVALUATION - ESTABLISHED PATIENT Routine 07/27/2024 10:00 AM EST LIPID PANEL WITH REFLEX TO DIRECT LDL Routine 06/29/2024 8:54 AM EDT Primary hypertension POCT GLYCATED HEMOGLOBIN, TOTAL Routine 02/14/2024 1:28 PM EDT Type 2 diabetes mellitus with hyperglycemia, without long-term current use of insulin ([facility]) BI MAMMOGRAM SCREENING TOMOSYNTHESIS BILATERAL Routine 01/17/2024 9:18 AM EDT Screening mammogram for breast cancer ZZZ HISTORICAL MICROALBUMIN, RANDOM Routine 03/02/2021 1:58 PM EDT HM COLONOSCOPY Routine 08/28/2019 8:20 AM EST from Last 3 Months or Most Recently Relevant to Health Maintenance Results * (ABNORMAL) Urinalysis, Complete, with Reflex to Culture (10/17/2024 12:01 PM EST) Color Urine Yellow [facility] Appearance Urine Cloudy [facility] PH 7.0 5.0 - 9.0 [facility] Glucose Urine UA 500(A) Negative mg/dL [facility] Urine Blood Negative Negative [facility] Specific [place] - Urine 1.020 1.005 - 1.025 [facility] Urine Protein Negative Neg-Trace mg/dL [facility] Urine Ketones Negative Negative mg/dL [facility] Nitrite Urine Positive(A) Negative [facility] Leukocyte Esterase Urine Small (1+)(A) Negative [facility] RBC Urine 0-2 0 - 2 /HPF [facility] Urine WBC 21-50(A) 0 - 5 /HPF [facility] Urine Squamous Epithelial Cell 3-5 0 - 2 /HPF [facility] Urine Bacteria 4+ None Seen [facility] Hyaline Casts, Urine 0-2 0 - 2 /LPF [facility] 10/17/2024 12:0 1 PM EST 10/17/2024 1:11 PM EST Narrative [facility] - 10/17/2024 1:31 PM EST Urine, Clean Catch Teresa Birdie [facility] URINE ORDERABLES Final Res ult Performing Organization Address [facility] Co de Phone Number [facility] [address] [place] [address] [phone] * (ABNORMAL) Basic Metabolic Panel (10/17/2024 12:01 PM EST) Sodium 142 135 - 145 mmol/L [facility] Potassium 4.6 3.3 - 5.1 mmol/L [facility] Comment:Slight Hemolysis.Int erpret result with caution. Chloride 106 96 - 108 mmol/L [facility] Carbon Dioxide 28 22 - 29 mmol/L [facility] Anion Gap 13 12 - 20 [facility] Urea Nitrogen (BUN) 9 9 - 16 mg/dL [facility] Creatinine, Serum 0.68 0.5 - 1.4 mg/dL [facility] Estimated Glomerular Filt Rate >60 [facility] Comment:Chronic Kidney Disea se: Estimated GFR < 60 mL/min/1.78m8Spuwjt Kidney Disease: Estimated GFR < 15 mL/min/1.73m2 Glucose 124(H) 60 - 115 mg/dL [facility] Calcium 9.7 8.4 - 10.2 mg/dL [facility] Blood Venous blood specimen / Unknown 10/17/2024 12:01 PM EST 10/17/2024 1:40 PM EST Teresa Packer [facility] BLOOD ORDERABLES Final Res ult Performing Organization Address [facility] Co de Phone Number [facility] [address] [place] [address] [phone] * Culture, Urine, Routine (10/17/2024 12:00 AM EST) Urine Urine specimen obtained by clean catch procedure / Unknown 10/17/2024 10/17/2024 Comment:[facility] - 10/19/2024 7:25 AM EST Escherichia coli ESBL Note: NOTE: Extended-Spectrum Beta-Lactamase enzyme present Quant > 100,000 cfu/mL Escherichia coli: Ampicillin >=32(R) Escherichia coli: Cefazolin (Urine) >=32(R) Escherichia coli: Cefepime 16(R) Escherichia coli: Ceftriaxone >=64(R) Escherichia coli: Ciprofloxacin >=4(R) Escherichia coli: Ertapenem <=0.12(S) Escherichia coli: Gentamicin <=1(S) Escherichia coli: Nitrofurantoin <=16(S) Escherichia coli: Trimethoprim/Sulfamethoxazole <=20(S) Specimen Source: Urine clean catch Teresa MUSA LAB MICROBIOLOGY - GENERAL ORD ERABLES Final Result [facility] [address] [place] [phone] * POCT CHIQUITA-14 Urine Drug Screen (10/16/2024 2:02 PM EST) Only the most recent of2 resultswithin the time period is included. Oxycodone Screen, Urine Positive Urine Urine specimen obtained by clean catch procedure / Unknown 10/16/2024 2:02 PM EST Mey Oliveira RN - 10/16/2024 2:02 PM EST UTOX cup Lot#[id number] Exp. 06/13/26 Internal Pass Control Teresa MUSA POINT OF CARE TEST ENTER/EDIT ORDERABLES Final Result * VASC US Lower Extremity Venous Duplex Bilateral (09/04/2024 10:10 AM EST) 09/04/2024 10:1 0 AM EST [facility] IMAGING - 10/17/2024 4:24 PM EST ? [place] [facility] ?[address] ?[place] [address] ? Ultrasound Report ? Signed ? Patient: Ubiles,Kalyani I ?MR#: [id number] ?? 83 ? : 1955 ?Acct:[id number] ? Age/Sex: 69 / F ?ADM Date: 09/04/24 ? Loc: HO.US ? Attending Dr: Makenna Pryor PA-C ? Ordering Physician: Makenna Pryor PA-C ?? Date of Service: 09/04/24 ?? Procedure(s): US venous duplex LE BI ?? Accession Number(s): [id number] ? cc: Audrey Calvo MD; Makenna Pryor PA-C ? EXAMINATION: ?? US LOWER EXTREMITY VENOUS (REFLUX EXAM), BILATERAL ? CLINICAL INFORMATION: ?? Varicose veins of right lower extremity with inflammation. ? COMPARISON: ?? None. ? TECHNIQUE: ?? Color flow triplex imaging and compression Doppler was performed to ?? evaluate both the deep and the superficial systems bilaterally. To ?? evaluate the superficial system, the examination was performed in the ?? upright position. Color-flow Doppler ultrasound and compression ?? ultrasound were utilized. In addition, maneuvers were utilized to ?? demonstrate reflux. ? FINDINGS: ? 1. DEEP VENOUS ULTRASOUND OF THE RIGHT LOWER EXTREMITY: ?? Common Femoral Vein: Compressible, normal respiratory variation and ?? augmented flow. ? Femoral Vein: Compressible, normal color flow and augmentation. ?? Popliteal Vein: Compressible, normal augmentation. ? Deep Reflux: There is no evidence of reflux in the deep system in ?? either the common femoral vein, superficial femoral or the popliteal ?? vein. ? There is no evidence of a Kline's cyst. ? 2. SUPERFICIAL ULTRASOUND WITH DOPPLER OF RIGHT LOWER EXTREMITY: ? GREAT SAPHENOUS VEIN: ?? Saphenofemoral Junction: 0.57 cm; Reflux: 0 ms ?? Proximal Thigh: 0.28 cm; Reflux: 0 ms ?? Mid Thigh: 0.36 cm cm; Reflux: 0 ms ?? Distal Thigh: 0.39 cm; Reflux: 0 ms ?? At Knee: 0.39 cm; Reflux: 0 ms ?? Proximal Calf: 0.35 cm; Reflux: 0 ms ?? Mid Calf: 0.22 cm; Reflux: 0 ms ?? Distal Calf: 0.22 cm; Reflux: 0 ms ? DUPLICATED MEDIAL GREAT SAPHENOUS VEIN: ?? Location: Saphenofemoral Junction ?? Diameter: 0.3 ?? Reflux: 0 ms ? DUPLICATED LATERAL GREAT SAPHENOUS VEIN: ?? Diameter: None imaged ?? Reflux: NA ? SMALL SAPHENOUS VEIN: ?? Saphenopopliteal Junction: 0.26 cm; Reflux: 0 ms ?? Proximal: 0.22 cm; Reflux: 0 ms ?? Distal: 0.19 cm; Reflux: 0 ms ? VEIN OF GIACOMINI: ?? Size: NA ?? Reflux: NA ? PERFORATORS: ?? Location: Mid calf ?? Size: 0.16 cm ?? Reflux: 0 ms ? Location: Mid calf ?? Size: 0.19 cm ?? Reflux: 0 ms ? VARICOSITIES: ?? Location: Multiple. ?? Size: Each approximately 3 mm ?? Reflux: 0 ms ? 3. DEEP VENOUS ULTRASOUND OF THE LEFT LOWER EXTREMITY: ?? Common Femoral Vein: Compressible, normal respiratory variation and ?? augmented flow. ? Femoral Vein: Compressible, normal color flow and augmentation. ?? Popliteal Vein: Compressible, normal augmentation. ? Deep Reflux: There is no evidence of reflux in the deep system in ?? either the common femoral vein, superficial femoral or the popliteal ?? vein. ? There is no evidence of a Kline's cyst. ? 4. SUPERFICIAL ULTRASOUND WITH DOPPLER OF LEFT LOWER EXTREMITY: ? GREAT SAPHENOUS VEIN: ?? Saphenofemoral Junction: 0.70 cm; Reflux: 0 ms ?? Proximal Thigh: 0.22 cm; Reflux: 0 ms ?? Mid Thigh: 0.39 cm; Reflux: 0 ms ?? Distal Thigh: 0.37 cm; Reflux: 0 ms ?? At Knee: 0.28 cm; Reflux: 0 ms ?? Proximal Calf: 0.30 cm; Reflux: 0 ms ?? Mid Calf: 0.19 cm; Reflux: 0 ms ?? Distal Calf: 0.19 cm; Reflux: 0 ms ? DUPLICATED MEDIAL GREAT SAPHENOUS VEIN: ?? Location: Saphenofemoral junction ?? Diameter: 0.30 cm ?? Reflux: 0 ms ? DUPLICATED LATERAL GREAT SAPHENOUS VEIN: ?? Diameter: None imaged. ?? Reflux: NA ? SMALL SAPHENOUS VEIN: ?? Saphenopopliteal Junction: 0.24 cm; Reflux: 0 ms ?? Proximal: 0.23 cm; Reflux: 0 ms ?? Distal: 0.25 cm; Reflux: 0 ms ? VEIN OF GIACOMINI: ?? Size: NA ?? Reflux: NA ? PERFORATORS: ?? Location: Proximal thigh ?? Size: 0.22 cm ?? Reflux: 0 ms ? Location: Proximal calf ?? Size: 0.13 cm ?? Reflux: 0 ms ? VARICOSITIES: ?? Location: Multiple. ?? Size: Each approximately 3 mm ?? Reflux: 0 ms ? US/US venous duplex LE BI ?? IMPRESSION: ?? Right: No hemodynamically significant reflux is seen. ? Left: No hemodynamically significant reflux is seen. ? Electronically signed by: ??Darrell Guevara MD ??10/17/2024 04:21 PM EST RP ? Dictated By: ?Darrell Guevara MD ? Signed By: ?<Electronically signed by Darrell Guevara MD in OV> ? 10/17/24 1621 ? DD/ 1010 ? TD/TT: 09/04/24 1042 ? Churner: ASHER ? Procedure Note Natanroddy, Image - 10/17/2024 [place] [address] Ultrasound Report Signed Patient: Kalyani Rogers [facility]#: [id number] [birth year] : 1955cct:[id number] Age/Sex: 69 / FADM Date: 09/04/24 Loc: HO.US Attending Dr: Makenna Pryor PA-C Ordering Physician: Makenna Pryor PA-C Date of Service: 09/04/24 Procedure(s): US venous duplex LE BI Accession Number(s): [id number] cc: Audrey Calvo MD; Makenna Pryor PA-C EXAMINATION: US LOWER EXTREMITY VENOUS (REFLUX EXAM), BILATERAL CLINICAL INFORMATION: Varicose veins of right lower extremity with inflammation. COMPARISON: None. TECHNIQUE: Color flow triplex imaging and compression Doppler was performed to evaluate both the deep and the superficial systems bilaterally. To evaluate the superficial system, the examination was performed in the upright position. Color-flow Doppler ultrasound and compression ultrasound were utilized. In addition, maneuvers were utilized to demonstrate reflux. FINDINGS: 1. DEEP VENOUS ULTRASOUND OF THE RIGHT LOWER EXTREMITY: Common Femoral Vein: Compressible, normal respiratory variation and augmented flow. Femoral Vein: Compressible, normal color flow and augmentation. Popliteal Vein: Compressible, normal augmentation. Deep Reflux: There is no evidence of reflux in the deep system in either the common femoral vein, superficial femoral or the popliteal vein. There is no evidence of a Kline's cyst. 2. SUPERFICIAL ULTRASOUND WITH DOPPLER OF RIGHT LOWER EXTREMITY: GREAT SAPHENOUS VEIN: Saphenofemoral Junction: 0.57 cm; Reflux: 0 ms Proximal Thigh: 0.28 cm; Reflux: 0 ms Mid Thigh: 0.36 cm cm; Reflux: 0 ms Distal Thigh: 0.39 cm; Reflux: 0 ms At Knee: 0.39 cm; Reflux: 0 ms Proximal Calf: 0.35 cm; Reflux: 0 ms Mid Calf: 0.22 cm; Reflux: 0 ms Distal Calf: 0.22 cm; Reflux: 0 ms DUPLICATED MEDIAL GREAT SAPHENOUS VEIN: Location: Saphenofemoral Junction Diameter: 0.3 Reflux: 0 ms DUPLICATED LATERAL GREAT SAPHENOUS VEIN: Diameter: None imaged Reflux: NA SMALL SAPHENOUS VEIN: Saphenopopliteal Junction: 0.26 cm; Reflux: 0 ms Proximal: 0.22 cm; Reflux: 0 ms Distal: 0.19 cm; Reflux: 0 ms VEIN OF GIACOMINI: Size: NA Reflux: NA PERFORATORS: Location: Mid calf Size: 0.16 cm Reflux: 0 ms Location: Mid calf Size: 0.19 cm Reflux: 0 ms VARICOSITIES: Location: Multiple. Size: Each approximately 3 mm Reflux: 0 ms 3. DEEP VENOUS ULTRASOUND OF THE LEFT LOWER EXTREMITY: Common Femoral Vein: Compressible, normal respiratory variation and augmented flow. Femoral Vein: Compressible, normal color flow and augmentation. Popliteal Vein: Compressible, normal augmentation. Deep Reflux: There is no evidence of reflux in the deep system in either the common femoral vein, superficial femoral or the popliteal vein. There is no evidence of a Kline's cyst. 4. SUPERFICIAL ULTRASOUND WITH DOPPLER OF LEFT LOWER EXTREMITY: GREAT SAPHENOUS VEIN: Saphenofemoral Junction: 0.70 cm; Reflux: 0 ms Proximal Thigh: 0.22 cm; Reflux: 0 ms Mid Thigh: 0.39 cm; Reflux: 0 ms Distal Thigh: 0.37 cm; Reflux: 0 ms At Knee: 0.28 cm; Reflux: 0 ms Proximal Calf: 0.30 cm; Reflux: 0 ms Mid Calf: 0.19 cm; Reflux: 0 ms Distal Calf: 0.19 cm; Reflux: 0 ms DUPLICATED MEDIAL GREAT SAPHENOUS VEIN: Location: Saphenofemoral junction Diameter: 0.30 cm Reflux: 0 ms DUPLICATED LATERAL GREAT SAPHENOUS VEIN: Diameter: None imaged. Reflux: NA SMALL SAPHENOUS VEIN: Saphenopopliteal Junction: 0.24 cm; Reflux: 0 ms Proximal: 0.23 cm; Reflux: 0 ms Distal: 0.25 cm; Reflux: 0 ms VEIN OF GIACOMINI: Size: NA Reflux: NA PERFORATORS: Location: Proximal thigh Size: 0.22 cm Reflux: 0 ms Location: Proximal calf Size: 0.13 cm Reflux: 0 ms VARICOSITIES: Location: Multiple. Size: Each approximately 3 mm Reflux: 0 ms US/US venous duplex LE BI IMPRESSION: Right: No hemodynamically significant reflux is seen. Left: No hemodynamically significant reflux is seen. Electronically signed by: Darrell Guevara MD 10/17/2024 04:21 PM EST Dictated By: Darrell Guevara MD Signed By: <Electronically signed by Darrell Guevara MD in OV> 10/17/24 1621 DD/ 1010 TD/TT: 09/04/24 1042 Churner: ASHER Authorlelia Provider Result Type Result Stat us [facility] External Provider CV VASC ULAR PROCEDURES Edited Result - Final [facility] [address] [place] [address] [phone] * Gross and Microscopic Level 3 (08/23/2024 10:22 AM EST) 08/23/2024 10:2 2 AM EST 08/24/2024 8:13 AM EST Narrative [facility] - 08/27/2024 11:00 AM EST ----- ------- Name: Kalyani Rogers I ? Age/Sex: 69/F ? : 1955 Unit#: [id number] ?? Attend Dr: Kalia Burleson MD ?Re08/23/24 ?Status: DEP REF ? Location: HO.LNP ?Disch: ? ----- ------- SPEC : [id number] ? RECD: 08/24/24 ? STATUS: ??SOUT ? REQ NUM: [id number] ? LISA: 08/23/24-1021 ? SUBM DR: Kalia Burleson MD ? [...] entirely submitted in a cassette labeled A. CEDS Copies To: ?? Audrey Calvo MD ?? [facility] ?? [address] ?? [place] [address] ?? [phone] ?? Kalia Burleson MD ?? [facility] ?? [address] ?? [place] [address] ?? [phone] ? CONTINUED ON NEXT PAGE ----- ------- Name: Kalyani Rogers Ling ? Age/Sex: 69/F ? : 1955 Unit#: [id number] ?? Attend Dr: Kalia Burleson MD ?Re08/23/24 ?Status: DEP REF ? Location: HO.LNP ?Disch: ? ----- ------- SPEC : [id number] ? RECD: 08/24/24 ? STATUS: ??SOUT ? REQ NUM: [id number] ? LISA: 08/23/24 ? SUBM DR: Kalia Burleson MD ? ENTERED: ??08/24/24 ?SP TYPE: Surgical ? OTHR DR: Audrey Calvo MD ? ORDERED: ??Gross Micro L3 ? ----- ------- Signed (signature on file) Sally Conway 08/27/24 1100 ? ----- ------- ? END OF REPORT ? us Generic External Data Provider LAB CYTOLOGY ORDE RAGHU Final Result [facility] [address] [place] [address] [phone] * Lipid Panel with Reflex to Direct LDL (06/29/2024 8:54 AM EDT) Triglycerides 66 <150 mg/dL [facility] Comment:Desirable Triglyceri de: less than 150 mg/dLBorderline High Triglyceride 150-199 mg/dLHigh Triglyceride: 200-499 mg/dLVery High Triglyceride: greater than or equal to 5OO mg/dL Cholesterol 139 <200 mg/dL [facility] Comment:Desirable Cholestero l: less than 200 mg/dLBorderline High Cholesterol: 200-239 mg/dLHigh Cholesterol: greater than 239 mg/dL LDL Cholesterol Calculated 71 <100 mg/dL [facility] Comment:Desirable LDL: less than 100 mg/dLNear Optimal/Above Optimal LDL: 110- 129 mg/dLBorderline High LDL: 130-159 mg/dLHigh LDL: 160-189 mg/dLVery High LDL: greater than or equal to 190 mg/dL HDL Cholesterol 55 >40 mg/dL [facility] Comment:Desirable HDL: great er than 40 mg/dL Note: This HDL assay may give artificially low results in patients with liver disease. Blood 06/29/2024 8:54 AM EDT 06/29/2024 11:09 AM EDT Audrey Calvo MD LAB BLOOD ORDERABLES Fin al Result [facility] [address] [place] [address] [phone] * (ABNORMAL) POCT HGB A1C (02/14/2024 1:28 PM EDT) Hemoglobin A1C 7.7(A) 4.0 - 6.0 % QC Media Lot # [id number] Lot# Expiration Date Blood 02/14/2024 1:28 PM EDT Audrey Calvo MD POINT OF CARE TEST ENTER /EDIT ORDERABLES Final Result * BI Mammogram Screening Tomosynthesis Bilateral (01/17/2024 9:18 AM EDT) Anatomical Region Laterality Modality Breast Bilateral Mammography 01/17/2024 9:18 AM EDT Narrative 02/12/2024 7:16 AM EDT ? [facility] ? [address] ?[place] [address] ? Mammography Report ? Signed ? Patient: Ubiles,Kalyani I ?MR#: [id number] ?? 83 ? : 1955 ?Acct:[id number] ? Age/Sex: 68 / F ?ADM Date: 04/30/24 ? Loc: HO.MAMMO ? Attending Dr: Audrey Calvo MD ? Ordering Physician: Audrey Calvo MD ?Results: 1Ne ?? gative ? Date of Service: 01/17/24 ?Follow Up: 1 Year From Orig ?? inal Mammogram ? Procedure(s): MM tomosynthesis screening BI ?? Accession Number(s): [id number] ? cc: Audrey Calvo MD ? EXAMINATION: ?? MM SCREENING DIGITAL BREAST TOMOSYNTHESIS, BILATERAL ? CLINICAL INFORMATION: ? Screening. Asymptomatic. ? COMPARISON: ?? Mammography: This study is compared with prior exams dating back to ?? 2017. ? TECHNIQUE: ?? Digital breast tomosynthesis is [...] by Vianey George MD in OV> ? 02/12/24710 ? DD/ 7 ? TD/TT: ? Churner: ? Procedure Note Donotdestineyinterpreter, Image - 02/12/2024 [facility] [address] [place], [place] [address] Mammography Report Signed Patient: Kalyani Rogers IMR#: [id number] [birth year] : 7Acct:[id number] Age/Sex: 68 / FADM Date: 01/17/24 Loc: HO.MAMMO Attending Dr: Audrey Calvo MD Ordering Physician: Audrey Calvo MDResults: 1Ne gative Date of Service: 01/17/24Follow Up: 1 Year From Orig inal Mammogram Procedure(s): MM tomosynthesis screening BI Accession Number(s): [id number] cc: Audrey Calvo MD EXAMINATION: MM SCREENING [...] in OV> 02/12/24 0711 DD/ 0918 TD/TT: Churner: Audrey Calvo MD IMG BI PROCEDURES Final Result * MICROALBUMIN, RANDOM (03/02/2021 1:58 PM EDT) Creatinine Urine 30.13 mg/dL [facility] Microalbum/Creati nine Ratio Ur 43.1 ug/mg cr [facility] Comment: ?Albumin/Creatinine Ratio Reference Ranges: ? Normal: < 30 ug/mg creatinine ? Microalbuminuria: ??30 - 300 ug/mg creatinine Clinical Albuminuria: ??> 300 ug/mg creatinine Microalbumin Urine 13.0 mg/L [facility] 03/02/2021 1:58 PM EDT Historical Provider HISTORICAL/NON ORDERABLE LABS Final Result [facility] [address] * Hm Colonoscopy (08/28/2019 8:20 AM EST) Historical Provider HEALTH MAINTENANCE Final Result from Last 3 Months or Most Recently Relevant to Health Maintenance Insurance [facility] - [facility]CO DENTAL - [facility] Care Teams Surfboard Designer Relationship Specialty Start Date End Date Audrey Calvo MD [address] [place] [phone] PCP - General Family Medicine 05/09/17
--- OUTSIDE RECORDS SUMMARY | 2024-11-13 09:29 | XMS_ITS | Encounter Summary ---
Author Organization [employer] [facility] Address [address] [place] [address] 7t [place] [address] Care Team Providers Care Relationship Consultant Name Role Phone Audrey Calvo MD Primary Care Provider + Reason for Visit * Reason Comments Med Refill Encounter Details Date Type Department Care Team (Late st Contact Info) Description 03/31/2023 Refill [facility] MEDICINE [address] [place] [address] [phone] Audrey Calvo MD [address] [place] [address] [phone] HTN (hypertension), benign Social History Tobacco Use [...] Department Care Team (Late Contact Info) Description 12/11/2024 11:00 AM EDT Office Visit [facility] MEDICINE [address] [place] [address] [phone] 12/26/2024 2:15 PM EDT Office Visit [facility] [address] [place] [address] [place] [address] Audrey Calvo MD [address] [place] [address] 12/27/2024 9:00 AM EDT Office Visit [facility] ADULT DENTAL [address] [place] [address] Liya Perez documented as of this encounter Visit Diagnoses Diagnosis HTN (hypertension), benign Essential hypertension, benign documented in this encounter Additional Health Concerns Assessment Noted Time PHQ-9 Depression Total Score: 0 12/23/19 9:08 AM EDT documented as of this encounter Care Teams Relationship Consultant Relationship Specialty Start Date End Date Audrey Calvo MD [address] [place] [address] PCP - General Family Medicine 05/09/17 documented as of this encounter
--- OUTSIDE RECORDS SUMMARY | 2024-11-13 09:29 | XMS_ITS | Encounter Summary ---
Author Organization [employer] Address [address] 7t [place] [address] Care Team Providers Care Developer Automatic Name Role Phone Audrey Calvo MD Primary Care Provider + Reason for Visit * Reason Onset Date Comments CONSTRUCTION CHECKER signed today 10/16/2024 Encounter Details Date Type Department Care Team ([facility] st Contact Info) Description 10/16/2024 Telephone [facility] [address] [place], [place] [phone] Mey Vargas RN CONSTRUCTION CHECKER signed today Social History Tobacco Use Types [...] EST Pt attended chronic pain group today CONSTRUCTION CHECKER Agreement signed today BPI updated Pain severity score of 8, activity interference score of 5.6. Previous BPI completed 06/12/24 with pain severity score of 7, activity interference score of 5. documented in this encounter Plan of Treatment Upcoming Encounters Date Type Department Care Team (Late st Contact Info) Description 12/11/2024 11:00 AM EDT Office Visit [facility] [address] [place] [phone] 12/26/2024 2:15 PM EDT Office Visit [facility] [address] [place] [phone] Audrey Calvo MD [address] [place] [address] 12/27/2024 9:00 AM EDT Office Visit [facility] ADULT DENTAL [address] [place] [address] Liya Perez documented as of this encounter Visit Diagnoses Not on filedocumented in this encounter Additional Health Concerns Assessment Noted Time PHQ-9 Depression Total Score: 3 02/14/20 24 1:55 PM EDT documented as of this encounter Care Teams Developer Automatic Relationship Specialty Start Date End Date Audrey Calvo MD [address] [place] [phone] PCP - General Family Medicine 05/09/17 documented as of this encounter
--- OUTSIDE RECORDS SUMMARY | 2024-11-13 09:29 | XMS_ITS | Encounter Summary ---
Author Organization [employer] Address [address] 7t [place] [address] Care Team Providers Care Renovator Machine Operator Name Role Phone Audrey Calvo MD Primary Care Provider + Reason for Visit * Reason Comments Med Refill Encounter Details Date Type Department Care Team ([facility] st Contact Info) Description 07/06/[address] [facility] MED & PEDS [address] [place], [place] [phone] Audrey Calvo MD [address] [place] [address] Lumbago with sciatica, unspecified side Social History [...] AM EDT Office Visit [facility] MEDICINE [address] [place] [phone] 12/26/2024 2:15 PM EDT Office Visit [facility] MEDICINE [address] [place] [address] Audrey Calvo MD [address] [place] [address] 12/27/2024 9:00 AM EDT Office Visit [facility] ADULT DENTAL [address] [place] [address] Liya Perez documented as of this encounter Visit Diagnoses Diagnosis Lumbago with sciatica, unspecified side documented in this encounter Additional Health Concerns Assessment Noted Time PHQ-9 Depression Total Score: 0 12/23/19 23 9:08 AM EDT documented as of this encounter Care Teams Renovator Machine Operator Relationship Specialty Start Date End Date Audrey Calvo MD [address] [place] [phone] PCP - General Family Medicine 05/09/17 documented as of this encounter
--- OUTSIDE RECORDS SUMMARY | 2024-11-13 09:30 | XMS_ITS | Encounter Summary ---
Author Organization [employer] Address [address] [facility] 7t [place] [address] Care Team Providers Care Fisheries Officer Name Role Phone Audrey Calvo MD Primary Care Provider + Reason for Visit * Reason Comments Med Refill Encounter Details Date Type Department Care Team ([facility] Contact Info) Description 09/20/2024 Refill [facility] MEDICINE [address] [place], [place] [phone] Audrey Calvo MD [address] [place], [place] [phone] Chronic rhinitis Social History Tobacco Use Types [...] Description 12/11/2024 11:00 AM EDT Office Visit [facility] MEDICINE [address] [place] [phone] 12/26/2024 2:15 PM EDT Office Visit [facility] MEDICINE [address] [place] [phone] Audrey Calvo MD [address] [place] [phone] 12/27/2024 9:00 AM EDT Office Visit [facility] ADULT DENTAL [address] [place] [phone] Liya Perez documented as of this encounter Visit Diagnoses Diagnosis Chronic rhinitis documented in this encounter Additional Health Concerns Assessment Noted Time PHQ-9 Depression Total Score: 3 02/14/20 24 1:55 PM EDT documented as of this encounter Care Teams Fisheries Officer Relationship Specialty Start Date End Date Audrey Calvo MD [address] [place] [phone] PCP - General Family Medicine 05/09/17 documented as of this encounter
--- OUTSIDE RECORDS SUMMARY | 2024-11-13 09:30 | XMS_ITS | Encounter Summary ---
Author Organization [employer] Address [address] [facility] 7t [place] [address] Care Team Providers Care Installation Engineer Name Role Phone Audrey Calvo MD Primary Care Provider + Reason for Visit * Reason Comments Med Refill Encounter Details Date Type Department Care Team ([facility] Contact Info) Description 10/06/2023 Refill [facility] MEDICINE [address] [place], [place] [phone] Audrey Calvo MD [address] [place], [place] [phone] Social History Tobacco Use Types Packs/Day Years [...] 11:00 AM EDT Office Visit [facility] MEDICINE [address] [place] [phone] 12/26/2024 2:15 PM EDT Office Visit [facility] MEDICINE [address] [place] [phone] Audrey Calvo MD [address] [place] [phone] 12/27/2024 9:00 AM EDT Office Visit [facility] ADULT DENTAL [address] [place] [address] [phone] Liya Perez documented as of this encounter Visit Diagnoses Not on filedocumented in this encounter Additional Health Concerns Assessment Noted Time PHQ-9 Depression Total Score: 0 12/23/19 23 9:08 AM EDT documented as of this encounter Care Teams Installation Engineer Relationship Specialty Start Date End Date Audrey Calvo MD [address] [place] [phone] PCP - General Family Medicine 05/09/17 documented as of this encounter
--- OUTSIDE RECORDS SUMMARY | 2024-11-13 09:30 | XMS_ITS | Encounter Summary ---
Author Organization [employer] [facility] Address [address] [facility] 7t [place] [address] Care Team Providers Care Senior Health Physics Technician Name Role Phone Audrey Calvo MD Primary Care Provider + Encounter Details Date Type Department Care Team (Latest Contact Info) Description 01/31/2019 Abstract [facility] CONVERSIONS Dental, Provider, DDS Social History [...] Upcoming Encounters Date Type Department Care Team ( Contact Info) Description 12/11/2024 11:00 AM EDT Office Visit [facility] MEDICINE [address] [place] [phone] 12/26/2024 2:15 PM EDT Office Visit [facility] MEDICINE [address] [place] [address] Audrey Calvo MD [address] [place] [phone] 12/27/2024 9:00 AM EDT Office Visit [facility] ADULT DENTAL 230 [place] [address] Liya Perez documented as of this encounter Visit Diagnoses Not on filedocumented in this encounter Care Teams Senior Health Physics Technician Relationship Specialty Start Date End Date Audrey Calvo MD [address] [place] [address] PCP - General Family Medicine 05/09/17 documented as of this encounter
--- OUTSIDE RECORDS SUMMARY | 2024-11-13 09:30 | XMS_ITS | Encounter Summary ---
Author Organization [employer] Address [address] [facility] 7t [place] [address] Care Team Providers Care Waterproofing Supervisor Name Role Phone Audrey Calvo MD Primary Care Provider + Reason for Visit * Reason Onset Date Comments December10/19/2024 Encounter Details Date Type Department Care Team ([facility] Contact Info) Description 10/19/2024 Telephone [facility] MEDICINE 230 [place], [place] [phone] Audrey Calvo MD [address] [place] [address] December Social History Tobacco Use Types Packs/Day Years [...] encounter Miscellaneous Notes * Telephone Encounter - Dora Patel MA - 10/19/2024 9:31 AM EST Tc to pt to schedule recall appt. Appt has been scheduled for 12/26/24 at 10:30 am. documented in this encounter Plan of Treatment Upcoming Encounters Date Type Department Care Team (Late st Contact Info) Description 12/11/2024 11:00 AM EDT Office Visit [facility] MEDICINE [address] [place] [phone] 12/26/2024 2:15 PM EDT Office Visit [facility] MEDICINE [address] [place] [phone] Audrey Calvo MD [address] [place] [address] 12/27/2024 9:00 AM EDT Office Visit [facility] ADULT DENTAL [address] [place] [phone] Liya Perez documented as of this encounter Visit Diagnoses Not on filedocumented in this encounter Additional Health Concerns Assessment Noted Time PHQ-9 Depression Total Score: 3 02/14/20 24 1:55 PM EDT documented as of this encounter Care Teams Waterproofing Supervisor Relationship Specialty Start Date End Date Audrey Calvo MD [address] [place] [address] PCP - General Family Medicine 05/09/17 documented as of this encounter
--- OUTSIDE RECORDS SUMMARY | 2024-11-13 09:30 | XMS_ITS | Encounter Summary ---
Author Organization [employer] Address [address] [facility] 7t [place] [address] Care Team Providers Care Anesthesia Associate Name Role Phone Audrey Calvo MD Primary Care Provider + Reason for Visit * Reason Comments Med Refill Encounter Details Date Type Department Care Team ([facility] Contact Info) Description 10/23/2024 Refill [facility] MEDICINE [address] [place], [place] [phone] Audrey Calvo MD [address] [place], [place] [phone] Primary hypertension Social History Tobacco Use Types Packs/Day Years [...] Description 12/11/2024 11:00 AM EDT Office Visit [facility] MEDICINE [address] [place] [phone] 12/26/2024 2:15 PM EDT Office Visit [facility] MEDICINE [address] [place] [address] Audrey Calvo MD [address] [place] [address] 12/27/2024 9:00 AM EDT Office Visit [facility] ADULT DENTAL [address] [place] [phone] Liya Perez documented as of this encounter Visit Diagnoses Diagnosis Primary hypertension Unspecified essential hypertension documented in this encounter Additional Health Concerns Assessment Noted Time PHQ-9 Depression Total Score: 3 02/14/20 24 1:55 PM EDT documented as of this encounter Care Teams Anesthesia Associate Relationship Specialty Start Date End Date Audrey Calvo MD [address] [place] [phone] PCP - General Family Medicine 05/09/17 documented as of this encounter
--- OUTSIDE RECORDS SUMMARY | 2024-11-13 09:30 | XMS_ITS | Encounter Summary ---
Author Organization [employer] Address [address] 7t [place] [address] Care Team Providers Care Career Development Manager Name Role Phone Audrey Calvo MD Primary Care Provider + Reason for Visit * Reason Onset Date Comments Med Refill 11/08/2024 Encounter Details Date Type Department Care Team (Late st Contact Info) Description 11/08/2024 Refill [facility] CH[facility] MED & PEDS [address] [place] [phone] Audrey Calvo MD [address] [place] [address] Achilles tendinitis of right lower extremity Social [...] the past 12 months, has t he [employer], [employer], oil or water [employer] threatened to shut off services in your [...] Addendum Note - Mey Palomino RN - 11/08/2024 2:00 PM ESTAddended by: MEY PALOMINO on: 11/08/2024 02:00 PM Modules accepted: Orders * Telephone Encounter - Nila Gallardo LPN - 11/08/2024 1:39 PM EST Received request on oxyCODONE-acetaminophen (Percocet) 10-325 MG tablet documented in this encounter Plan of Treatment Upcoming Encounters Date Type Department Care Team (Late st Contact Info) Description 12/11/2024 11:00 AM EDT Office Visit [facility] MEDICINE [address] [place] [phone] 12/26/2024 2:15 PM EDT Office Visit [facility] MEDICINE [address] [place] [address] Audrey Calvo MD [address] [place] [address] [phone] 12/27/2024 9:00 AM EDT Office Visit [facility] ADULT DENTAL 230 [place] [address] Liya Perez documented as of this encounter Visit Diagnoses Diagnosis Achilles tendinitis of right lower extremity documented in this encounter Additional Health Concerns Assessment Noted Time PHQ-9 Depression Total Score: 3 02/14/20 24 1:55 PM EDT documented as of this encounter Care Teams Career Development Manager Relationship Specialty Start Date End Date Audrey Calvo MD [address] [place] [address] PCP - General Family Medicine 05/09/17 documented as of this encounter
--- OUTSIDE RECORDS SUMMARY | 2024-11-13 09:30 | XMS_ITS | Encounter Summary ---
Author Organization [employer] [facility] Address [address] [facility] 7t [place] [address] Care Team Providers Care Telecommunication Lines Repairer Name Role Phone Audrey Calvo MD Primary Care Provider + Encounter Details Date Type Department Care Team (Late st Contact Info) Description 09/27/2022 Orders Only [facility] CHC MED & PEDS [address] [place], [place] [phone] Emi Gill LPN Social History Tobacco Use [...] Description 12/11/2024 11:00 AM EDT Office Visit [facility] MEDICINE [address] [place] [address] [phone] 12/26/2024 2:15 PM EDT Office Visit [facility] MEDICINE [address] [place] [address] [phone] Audrey Calvo MD 230 [place], [place] [phone] 12/27/2024 9:00 AM EDT Office Visit [facility] ADULT DENTAL 230 [place], [place] [phone] Liya Perez documented as of this encounter Visit Diagnoses Not on filedocumented in this encounter Care Teams Telecommunication Lines Repairer Relationship Specialty Start Date End Date Audrey Calvo MD [address] [place] [phone] PCP - General Family Medicine 05/09/17 documented as of this encounter
--- OUTSIDE RECORDS SUMMARY | 2024-11-13 09:30 | XMS_ITS | Encounter Summary ---
Author Organization [employer] Address 75 [facility] 7t [place] [address] Care Team Providers Care Bow Stapler Name Role Phone Audrey Calvo MD Primary Care Provider + Reason for Visit * Reason Onset Date Comments Appointment Request 10/30/2024 Encounter Details Date Type Department Care Team ([facility] Contact Info) Description 10/30/2024 Telephone [facility] MEDICINE 230 [place], [place] [phone] Audrey Calvo MD 230 [place] [address] Appointment Request Social History Tobacco Use Types Packs/Day Years [...] Telephone Encounter - Dora Patel [place] - 10/30/2024 3:09 PM EST Tc to pt's daughter to r/s appt from 12/26/24 at 10:00 am as PCP won't be in that morning. Appt has been changed to 12/26/24 at 2:15 pm. documented in this encounter Plan of Treatment Upcoming Encounters Date Type Department Care Team (Late st Contact Info) Description 12/11/2024 11:00 AM EDT Office Visit [facility] MEDICINE [address] [place] [address] 12/26/2024 2:15 PM EDT Office Visit [facility] MEDICINE [address] [place] [address] Audrey Calvo MD 230 [place] [address] 12/27/2024 9:00 AM EDT Office Visit [facility] ADULT DENTAL [address] [place] [address] Liya Perez documented as of this encounter Visit Diagnoses Not on filedocumented in this encounter Additional Health Concerns Assessment Noted Time PHQ-9 Depression Total Score: 3 02/14/20 24 1:55 PM EDT documented as of this encounter Care Teams Bow Stapler Relationship Specialty Start Date End Date Audrey Calvo MD 230 [place] [address] PCP - General Family Medicine 05/09/17 documented as of this encounter
--- OUTSIDE RECORDS SUMMARY | 2024-11-13 09:30 | XMS_ITS | Encounter Summary ---
Author Organization [employer] Address [address] [facility] [address] 7t [place] [address] Care Team Providers Care Mailer Apprentice Name Role Phone Audrey Calvo MD Primary Care Provider + Encounter Details Date Type Department Care Team (Late st Contact Info) Description 10/19/2023 Orders Only [facility] CHC MED & PEDS [address] [place], [place] [phone] Nila Gallardo LPN Social History Tobacco Use [...] Visit [facility] MEDICINE [address] [place] [address] 12/26/2024 2:15 PM EDT Office Visit [facility] MEDICINE [address] [place] [address] Audrey Calvo MD [address] [place] [address] 57[address] 12/27/2024 9:00 AM EDT Office Visit [facility] ADULT DENTAL [address] [place] [address] Liya Perez documented as of this encounter Visit Diagnoses Not on filedocumented in this encounter Additional Health Concerns Assessment Noted Time PHQ-9 Depression Total Score: 0 12/23/19 23 9:08 AM EDT documented as of this encounter Care Teams Mailer Apprentice Relationship Specialty Start Date End Date Audrey Calvo MD [address] [place] [address] 18675 PCP - General Family Medicine 05/09/17 documented as of this encounter
--- OUTSIDE RECORDS SUMMARY | 2024-11-13 09:30 | XMS_ITS | Encounter Summary ---
Author Organization [employer] Address 75 [facility] 7t [place] [address] Care Team Providers Care Equipment Coordinator Name Role Phone Audrey Calvo MD Primary Care Provider + Reason for Visit * Reason Comments Med Refill Encounter Details Date Type Department Care Team ([facility] Contact Info) Description 08/18/2023 Refill [facility] MEDICINE 230 [place], [place] [phone] Audrey Calvo MD 230 [place], [place] [phone] Social History Tobacco Use Types Packs/Day Years [...] Description 12/11/2024 11:00 AM EDT Office Visit [facility] MEDICINE [address] [place] [address] 410[address] 12/26/2024 2:15 PM EDT Office Visit [facility] MEDICINE [address] [place] [address] 7[address] Audrey Calvo MD [address] [place] [address] 385[address] 12/27/2024 9:00 AM EDT Office Visit [facility] ADULT DENTAL [address] [place] [address] [phone] Liya Perez documented as of this encounter Visit Diagnoses Not on filedocumented in this encounter Additional Health Concerns Assessment Noted Time PHQ-9 Depression Total Score: 0 12/23/19 23 9:08 AM EDT documented as of this encounter Care Teams Equipment Coordinator Relationship Specialty Start Date End Date Audrey Calvo MD [address] [place] [address] [phone] PCP - General Family Medicine 05/09/17 documented as of this encounter
--- OUTSIDE RECORDS SUMMARY | 2024-11-13 09:30 | XMS_ITS | Encounter Summary ---
Author Organization [employer] Address 75 [facility] 7t [place] [address] Care Team Providers Care Category Development Manager Name Role Phone Audrey Calvo MD Primary Care Provider + Encounter Details Date Type Department Care Team (Late st Contact Info) Description 11/22/2022 Orders Only [facility] CHC MED & PEDS [address] [place], [place] [phone] Emi Gill LPN Social History Tobacco Use [...] Description 12/11/2024 11:00 AM EDT Office Visit [facility] [place] [address] 12/26/2024 2:15 PM EDT Office Visit [facility] [place] [address] [place] [address] 12/27/2024 9:00 AM EDT Office Visit [facility] [place] [address] Liya Perez documented as of this encounter Procedures Procedure Name Priority Date/Time Associated Diagnosis Comments BD DEXA AXIAL Routine 12/07/2022 11:21 AM EDT documented in this encounter Results * BD DEXA Axial (12/07/2022 11:21 AM EDT) Anatomical Region Laterality Modality Body Radiographic Farheen ging 12/07/2022 11:2 1 AM EDT Narrative 12/08/2022 7:44 AM EDT ? [facility] [place] ? [address] ?[place] ? Mammography Report ? Signed ? Patient: Sue,Kalyani Dubon ?MR#: [id number] ?? 83 ? : 1955 ?Acct:[id number] ? Age/Sex: 67 / F ?ADM Date: 03/21/23 ? Loc: HO.MAMMO ? Attending Dr: Audrey Calvo MD ? Ordering Physician: Audrey Calvo MD ?Results: ? Date of Service: 12/07/22 ?Follow Up: ? Procedure(s): XR DEXA axial skeleton ?? Accession Number(s): [id number] ? cc: Audrey Calvo MD ? EXAMINATION: ?? BONE DENSITOMETRY ? CLINICAL INDICATION: ?? Screening. ? COMPARISON: ?? Previous BD dated 10/14/2017 and baseline BD dated 11/13/2013. ? TECHNIQUE: Using a Elite Form DXA System (software version: ?? 13.1) manufactured by [employer], dual-energy x-ray absorptiometry ?? was performed of [...] 0741 ? DD/ 1121 ? TD/TT: ? Spring Forger: PATTERSON ? Procedure Note Donotuseinterpreter, Image - 12/08/2022 [facility] [address] Miranda, [place] [address] Mammography Report Signed Patient: Kalyani Rogers [facility]#: [id number] 81 : 7Acct:[id number] Age/Sex: 67 / FADM Date: 12/07/22 Loc: HO.MAMMO Attending Dr: Audrey Calvo MD Ordering Physician: Audrey Calvo MDResults: Date of Service: 12/07/22Follow Up: Procedure(s): XR DEXA axial skeleton Accession Number(s): [id number] cc: Audrey Calvo MD EXAMINATION: BONE DENSITOMETRY CLINICAL INDICATION: Screening. COMPARISON: Previous BD dated 10/14/2017 and baseline BD dated 11/13/2013. TECHNIQUE: Using a Elite Form DXA System (software version: 13.1) manufactured by [employer], dual-energy x-ray absorptiometry was performed of the [...] in OV> 12/08/22 0741 DD/ 1121 TD/TT: Spring Forger: PATTERSON [facility] External Provider IMG DXA PROCEDURES Final Result documented in this encounter Visit Diagnoses Not on filedocumented in this encounter Care Teams Category Development Manager Relationship Specialty Start Date End Date Audrey Calvo MD [address] [place] [phone] PCP - General Family Medicine 05/09/17 documented as of this encounter
--- OUTSIDE RECORDS SUMMARY | 2024-11-13 09:30 | XMS_ITS | Encounter Summary ---
Author Organization [employer] Address [address] [facility] [address] 7t [place] [address] Care Team Providers Care Water Treatment Specialist Name Role Phone Audrey Calvo MD Primary Care Provider + Encounter Details Date Type Department Care Team ([facility] st Contact Info) Description 09/06/2024 Telephone [facility] MEDICINE 230 [place], [place] [phone] Audrey Calvo MD 230 [place], [place] [phone] Social History Tobacco Use Types Packs/Day Years [...] Description 12/11/2024 11:00 AM EDT Office Visit [facility] MEDICINE [address] [place] [address] 927[address] 12/26/2024 2:15 PM EDT Office Visit [facility] MEDICINE [address] [place] [address] 07694 Audrey Calvo MD [address] [place] [address] 12/27/2024 9:00 AM EDT Office Visit [facility] ADULT DENTAL [address] [place] [address] 8[address] Liya Perez documented as of this encounter Visit Diagnoses Not on filedocumented in this encounter Additional Health Concerns Assessment Noted Time PHQ-9 Depression Total Score: 3 02/14/20 24 1:55 PM EDT documented as of this encounter Care Teams Water Treatment Specialist Relationship Specialty Start Date End Date Audrey Calvo MD [address] [place] [address] [phone] PCP - General Family Medicine 05/09/17 documented as of this encounter
--- OUTSIDE RECORDS SUMMARY | 2024-11-13 09:30 | XMS_ITS | Encounter Summary ---
Author Organization [employer] Address [address] [facility] [address] 7t [place] [address] Care Team Providers Care Senior Biostatistician Name Role Phone Audrey Calvo MD Primary Care Provider + Encounter Details Date Type Department Care Team (Late st Contact Info) Description 02/15/2024 Orders Only [facility] MEDICINE 230 [place], [place] [phone] Provider, MD [place] Social History Tobacco Use [...] Description 12/11/2024 11:00 AM EDT Office Visit [facility] MEDICINE [address] [place] [address] 12/26/2024 2:15 PM EDT Office Visit [facility] MEDICINE [address] [place] [address] 0[address] Audrey Calvo MD [address] [place] [address] 13522 12/27/2024 9:00 AM EDT Office Visit [facility] ADULT DENTAL [address] [place] [address] 7[address]36 Liya Perez documented as of this encounter Procedures Procedure Name Priority Date/Time Associated Diagnosis Comments HM COLONOSCOPY Routine 08/28/2019 8:20 AM EST documented in this encounter Results * Hm Colonoscopy (08/28/2019 8:20 AM EST) us Historical Provider HEALTH MAINTENANCE Final Result documented in this encounter Visit Diagnoses Not on filedocumented in this encounter Additional Health Concerns Assessment Noted Time PHQ-9 Depression Total Score: 3 02/14/20 24 1:55 PM EDT documented as of this encounter Care Teams Senior Biostatistician Relationship Specialty Start Date End Date Audrey Calvo MD [address] [place] [address] [phone] PCP - General Family Medicine 05/09/17 documented as of this encounter
--- OUTSIDE RECORDS SUMMARY | 2024-11-13 09:30 | XMS_ITS | Encounter Summary ---
Author Organization [employer] Address [address] [facility] [address] 7t [place] [address] Care Team Providers Care Hydraulic Repairer Name Role Phone Audrey Calvo MD Primary Care Provider + Encounter Details Date Type Department Care Team ([facility] st Contact Info) Description 07/02/2024 Orders Only [facility] MEDICINE 230 [place], [place] [phone] Cassia Juarez MD 230 [place], [place] [phone] Social History Tobacco Use Types Packs/Day Years [...] 11:00 AM EDT Office Visit [facility] MEDICINE [address] [place] [address] 8[address] 12/26/2024 2:15 PM EDT Office Visit [facility] MEDICINE [address] [place] [address] 6[address] Audrey Calvo MD [address] [place] [address] 50941 12/27/2024 9:00 AM EDT Office Visit [facility] ADULT DENTAL [address] [place] [address] 22317 Liya Perez documented as of this encounter Visit Diagnoses Not on filedocumented in this encounter Additional Health Concerns Assessment Noted Time PHQ-9 Depression Total Score: 3 02/14/20 24 1:55 PM EDT documented as of this encounter Care Teams Hydraulic Repairer Relationship Specialty Start Date End Date Audrey Calvo MD [address] [place] [address] [phone] PCP - General Family Medicine 05/09/17 documented as of this encounter
--- OUTSIDE RECORDS SUMMARY | 2024-11-13 09:30 | XMS_ITS | Encounter Summary ---
Author Organization [employer] Address 75 [facility] 7t [place] [address] Care Team Providers Care Luster Repairer Name Role Phone Audrey Calvo MD Primary Care Provider + Reason for Visit * Reason Comments Med Refill Encounter Details Date Type Department Care Team ([facility] Contact Info) Description 10/19/2024 Refill [facility] MEDICINE 230 [place], [place] [phone] Audrey Calvo MD 230 [place], [place] [phone] Social History Tobacco Use Types Packs/Day Years [...] Description 12/11/2024 11:00 AM EDT Office Visit [facility] MEDICINE [address] [place] [address] 12/26/2024 2:15 PM EDT Office Visit [facility] MEDICINE [address] [place] [address] 927[address] Audrey Calvo MD [address] [place] [address] 027[address] 12/27/2024 9:00 AM EDT Office Visit [facility] ADULT DENTAL [address] [place] [address] 12540 Liya Perez documented as of this encounter Visit Diagnoses Not on filedocumented in this encounter Additional Health Concerns Assessment Noted Time PHQ-9 Depression Total Score: 3 02/14/20 24 1:55 PM EDT documented as of this encounter Care Teams Luster Repairer Relationship Specialty Start Date End Date Audrey Calvo MD [address] [place] [address] [phone] PCP - General Family Medicine 05/09/17 documented as of this encounter
--- OUTSIDE RECORDS SUMMARY | 2024-11-13 09:30 | XMS_ITS | Encounter Summary ---
Author Organization [employer] Address [address] [facility] [address] 7t [place] [address] Care Team Providers Care Lace Pinner Name Role Phone Audrey Calvo MD Primary Care Provider + Encounter Details Date Type Department Care Team ([facility] st Contact Info) Description 12/02/2023 Telephone [facility] MEDICINE 230 [place], [place] [phone] Audrey Calvo MD 230 [place], [place] [phone] Social History Tobacco Use Types Packs/Day Years [...] Description 12/11/2024 11:00 AM EDT Office Visit [facility] MEDICINE [address] [place] [address] 16065 12/26/2024 2:15 PM EDT Office Visit [facility] MEDICINE [address] [place] [address] 07859 Audrey Calvo MD 230 [place] [address] 12/27/2024 9:00 AM EDT Office Visit [facility] ADULT DENTAL 230 [place] [address] Liya Perez documented as of this encounter Visit Diagnoses Not on filedocumented in this encounter Additional Health Concerns Assessment Noted Time PHQ-9 Depression Total Score: 0 12/23/19 23 9:08 AM EDT documented as of this encounter Care Teams Lace Pinner Relationship Specialty Start Date End Date Audrey Calvo MD 230 [place] [address] PCP - General Family Medicine 05/09/17 documented as of this encounter
--- OUTSIDE RECORDS SUMMARY | 2024-11-13 09:30 | XMS_ITS | Encounter Summary ---
Author Organization [employer] [facility] Address [address] [place] [address] 7t [place] [address] Care Team Providers Care Scooter Mechanic Name Role Phone Audrey Calvo MD Primary Care Provider + Encounter Details Date Type Department Care Team (Late st Contact Info) Description 10/07/2022 Orders Only [facility] MEDICINE [address] [place] [phone] Nila aGllardo LPN Social History Tobacco Use Types Packs/Day [...] Description 12/11/2024 11:00 AM EDT Office Visit [facility] MEDICINE [address] [place] [address] 63796 12/26/2024 2:15 PM EDT Office Visit [facility] MEDICINE [address] [place] [address] 07215 Audrey Calvo MD [address] [place] [address] 97894 12/27/2024 9:00 AM EDT Office Visit [facility] ADULT DENTAL [address] [place] [address] 17536 Liya Perez documented as of this encounter Visit Diagnoses Not on filedocumented in this encounter Care Teams Scooter Mechanic Relationship Specialty Start Date End Date Audrey Calvo MD 230 [place] [address] PCP - General Family Medicine 05/09/17 documented as of this encounter
--- OUTSIDE RECORDS SUMMARY | 2024-11-13 09:30 | XMS_ITS | Encounter Summary ---
Author Organization [employer] Address 75 [facility] 7t [place] [address] Care Team Providers Care Safety Relief Valve Technician Name Role Phone Audrey Calvo MD Primary Care Provider + Reason for Visit * Reason Comments Med Refill Encounter Details Date Type Department Care Team ([facility] st Contact Info) Description 10/21/2024 Refill [facility] MEDICINE 230 [place], [place] [phone] Audrey Calvo MD 230 [place], [place] [phone] Diabetic polyneuropathy associated with type 2 diabetes mellitus (CMS/HCC); Primary osteoarthritis of both knees; Other chronic pain Social History Tobacco Use Types Packs/Day Years [...] Description 12/11/2024 11:00 AM EDT Office Visit [facility] MEDICINE [address] [place] [address] 8[address]31 12/26/2024 2:15 PM EDT Office Visit [facility] MEDICINE [address] [place] [address] 72570 Audrey Calvo MD [address] [place] [address] 23349 12/27/2024 9:00 AM EDT Office Visit [facility] ADULT DENTAL [address] [place] [address] 75033 Liya Perez documented as of this encounter Visit Diagnoses Diagnosis Diabetic polyneuropathy associated with type 2 diabetes mellitus (CMS/[facility]) Primary osteoarthritis of both knees Other chronic pain documented in this encounter Additional Health Concerns Assessment Noted Time PHQ-9 Depression Total Score: 3 02/14/20 24 1:55 PM EDT documented as of this encounter Care Teams Safety Relief Valve Technician Relationship Specialty Start Date End Date Audrey Calvo MD [address] [place] [address] 24977 PCP - General Family Medicine 05/09/17 documented as of this encounter
--- OUTSIDE RECORDS SUMMARY | 2024-11-13 09:30 | XMS_ITS | Encounter Summary ---
Author Organization [employer] Address 75 [facility] 7t [place] [address] Care Team Providers Care Speech Lang Path Name Role Phone Audrey Calvo MD Primary Care Provider + Encounter Details Date Type Department Care Team ([facility] st Contact Info) Description 10/17/2024 Orders Only [facility] CHC MED & PEDS 505 [place], [place] [phone] Teresa Packer FNP 505 [place], [place] [phone] Social History Tobacco Use Types Packs/Day Years [...] 11:00 AM EDT Office Visit [facility] MEDICINE [address] [place] [address] 92111 12/26/2024 2:15 PM EDT Office Visit [facility] MEDICINE [address] [place] [address] 73[address] Audrey Calvo MD [address] [place] [address] 35282 12/27/2024 9:00 AM EDT Office Visit [facility] ADULT DENTAL [address] [place] [address] 48652 Liya Perez documented as of this encounter Procedures Procedure Name Priority Date/Time Associated Diagnosis Comments URINALYSIS, COMPLETE, WITH REFLEX TO CULTURE Routine 10/17/2024 12:01 PM EST CULTURE, URINE, ROUTINE Routine 10/17/2024 12:00 AM EST documented in this encounter Results * (ABNORMAL) Urinalysis, Complete, with Reflex to Culture (10/17/2024 12:01 PM EST) Color Urine Yellow [facility] Appearance Urine Cloudy [facility] PH 7.0 5.0 - 9.0 [facility] Glucose Urine UA 500(A) Negative mg/dL [facility] Urine Blood Negative Negative [facility] Specific [place] - Urine 1.020 1.005 - 1.025 [facility] Urine Protein Negative Neg-Trace mg/dL [facility] Urine Ketones Negative Negative mg/dL [facility] Nitrite Urine Positive(A) Negative [facility] Leukocyte Esterase Urine Small (1+)(A) Negative [facility] RBC Urine 0-2 0 - 2 /HPF [facility] Urine WBC 21-50(A) 0 - 5 /HPF [facility] Urine Squamous Epithelial Cell 3-5 0 - 2 /HPF [facility] Urine Bacteria 4+ None Seen [facility] Hyaline Casts, Urine 0-2 0 - 2 /LPF [facility] 10/17/2024 12:0 1 PM EST 10/17/2024 1:11 PM EST Narrative [facility] - 10/17/2024 1:31 PM EST Urine, Clean Catch Teresa Packer [facility] URINE ORDERABLES Final Res ult Performing Organization Address [facility]/State/[facility] [[email or web address]] Co de Phone Number [facility] [address] [place] [address] [phone] * Culture, Urine, Routine (10/17/2024 12:00 AM EST) Urine Urine specimen obtained by clean catch procedure / Unknown 10/17/2024 10/17/2024 Comment:[facility] Narrative [facility] - 10/19/2024 7:25 AM EST Escherichia coli ESBL Note: NOTE: Extended-Spectrum Beta-Lactamase enzyme present Quant > 100,000 cfu/mL Escherichia coli: Ampicillin >=32(R) Escherichia coli: Cefazolin (Urine) >=32(R) Escherichia coli: Cefepime 16(R) Escherichia coli: Ceftriaxone >=64(R) Escherichia coli: Ciprofloxacin >=4(R) Escherichia coli: Ertapenem <=0.12(S) Escherichia coli: Gentamicin <=1(S) Escherichia coli: Nitrofurantoin <=16(S) Escherichia coli: Trimethoprim/Sulfamethoxazole <=20(S) Specimen Source: Urine clean catch eTresa Packer [facility] MICROBIOLOGY - GENERAL ORD ERABLES Final Result [facility] [address] [place] [address] [phone] documented in this encounter Visit Diagnoses Not on filedocumented in this encounter Additional Health Concerns Assessment Noted Time PHQ-9 Depression Total Score: 3 02/14/20 24 1:55 PM EDT documented as of this encounter Care Teams Speech Lang Path Relationship Specialty Start Date End Date Audrey Calvo MD [address] [place] [address] [phone] PCP - General Family Medicine 05/09/17 documented as of this encounter
--- OUTSIDE RECORDS SUMMARY | 2024-11-13 09:30 | XMS_ITS | Encounter Summary ---
Author Organization [employer] [facility] Address [address] 7t [place] [address] Care Team Providers Care Certified Retinal Angiographer Name Role Phone Audrey Calvo MD Primary Care Provider + Encounter Details Date Type Department Care Team (Late Contact Info) Description 10/26/2022 Orders Only [facility] [address] [place] [address] [phone] Nila Gallardo LPN Social History Tobacco Use [...] Description 12/11/2024 11:00 AM EDT Office Visit [facility] [address] [place] [address] [phone] 12/26/2024 2:15 PM EDT Office Visit [facility] [address] [place] [address] [phone] Audrey Calvo MD [address] [place] [address] [phone] 12/27/2024 9:00 AM EDT Office Visit [facility] ADULT DENTAL [address] [place] [address] Liya Perez documented as of this encounter Procedures Procedure Name Priority Date/Time Associated Diagnosis Comments BI MAMMOGRAM SCREENING TOMOSYNTHESIS BILATERAL Routine 11/09/2022 8:12 AM EST documented in this encounter Results * BI Mammogram Screening Tomosynthesis Bilateral (11/09/2022 8:12 AM EST) Anatomical Region Laterality Modality Breast Bilateral Mammography 11/09/2022 8:12 AM EST Narrative 11/10/2022 8:58 AM EST ? [facility] [place] ? [address] ?[place] [id number] ? Mammography Report ? Signed ? Patient: Sue,Kalyani I ?MR#: [id number] ?? 83 ? : 1955 ?Acct:[id number] ? Age/Sex: 67 / F ?ADM Date: 11/09/22 ? Loc: HO.MAMMO ? Attending Dr: Audrey Calvo MD ? Ordering Physician: Audrey Calvo MD ?Results: 1Ne ?? gative ? Date of Service: 11/09/22 ?Follow Up: 1 Year From Orig ?? inal Mammogram ? Procedure(s): MM tomosynthesis screening BI ?? Accession Number(s): [id number] ? cc: Audrey Cavlo MD ? EXAMINATION: ?? MM SCREENING DIGITAL BREAST TOMOSYNTHESIS, BILATERAL ? CLINICAL INFORMATION: ? Screening. Asymptomatic. ? The lifetime risk of breast cancer based on the Tyrer-Cuzick Model is ?? 4.8%. ? COMPARISON: ?? Mammography: November 13, 2021 and studies dating back to December 06, ?? 2013 ? TECHNIQUE: ?? Digital breast tomosynthesis is [...] signed by Chandra Moseley MD in OV> ?11/10/22854 ? DD/ 1 ? TD/TT: ? Transcribing Operator Head: SK ? Procedure Note Ricky Guevara - 11/10/2022 [facility] [address] [place] [address] Dr. Miranda, [place] [id number] Mammography Report Signed Patient: Kalyani Rogers [facility]#: [id number] 81 : 7Acct:[id number] Age/Sex: 67 / FADM Date: 11/09/22 Loc: HO.MAMMO Attending Dr: Audrey Calvo MD Ordering Physician: Audrey Calvoesults: 1Ne gative Date of Service: 11/09/22Follow Up: 1 Year From Orig inal Mammogram Procedure(s): MM tomosynthesis screening BI Accession Number(s): [id number] cc: Audrey Calvo MD EXAMINATION: MM SCREENING [...] in OV> 11/10/22 0855 DD/ 0812 TD/TT: Transcribing Operator Head: SK [facility] External Provider IMG BI PROCEDURES Edited Result - Final documented in this encounter Visit Diagnoses Not on filedocumented in this encounter Care Teams Certified Retinal Angiographer Relationship Specialty Start Date End Date Audrey Calvo MD [address] [place] [phone] PCP - General Family Medicine 05/09/17 documented as of this encounter
== END 2024-11-13 09:45 | disposition home or self-care (01) ==
PROVIDERS: PCP Internal Medicine; Visit Provider Physician Assistant Surgical
DX: E66.811 Obesity, class 1 (principal); Z68.33 Body mass index [BMI] 33.0-33.9, adult; Z90.3 Acquired absence of stomach [part of]; Z98.84 Bariatric surgery status
CPT/HCPCS: 99214

== ENCOUNTER 2025-01-11 13:45 | Outpatient (AMB) | payer OTHER, SELFPAY ==
--- NOTE | 2025-01-11 13:51 | MHC.OFFVIS ---
Intake Visit Reasons: recurrent UTI Intake Note: Patient is present for RECURRENT UTI Urology Medication:NONE Antibiotic Allergy:NONE Blood Thinner:NONE Hydraulic Barker Operator Required: Yes Allergies pollen extracts Allergy (Severe, Verified 01/11/25 13:52) Shortness of Breath PFSH Medical History Skin lesion of right leg Varicosities of leg Uncontrolled type 2 diabetes mellitus Diabetic polyneuropathy associated with type 2 diabetes mellitus Vitamin D deficiency Hypertension Diabetes type 2, controlled History of diverticulosis Hx of diverticulitis of colon Dyslipidemia Surgical History History of surgical removal of skin lesion (~08/23/24) History of surgery on lower extremity History of sleeve gastrectomy Hx of excision of mass Hx of colonoscopy Hx of cholecystectomy History of carpal tunnel release Hx of tubal ligation Hx of foot surgery Family History Father Hypertension Mother No problems noted. Son No problems noted. Son No problems noted. Daughter Hypertension Asthma Obesity Muscle spasm Acute depression Sister No problems noted. Sister No problems noted. Brother No problems noted. Brother No problems noted. Brother No problems noted. Brother No problems noted. Brother No problems noted. Social History Household Members: Family Housing: Apartment Do you presently have visiting nurse or other home services: Yes Alcohol intake: never Patient Tobacco Use Status: Never used Tobacco Advance Directives Date on File: 09/17/21 service: No Current occupational status: unemployed Results AMB Urinalysis, Automated UA Leukoctes 0 Claire/uL Last Edit by DEREK De La Rosa on 01/11/25 14:29 UA Nitrite Negative Last Edit by DEREK De La Rosa on 01/11/25 14:29 UA Urobilinogen 0.2 mg/dL Last Edit by DEREK De La Rosa on 01/11/25 14:29 UA Protein 0 mg/dL Last Edit by DEREK De La Rosa on 01/11/25 14:29 UA pH 5.5 Last Edit by DEREK De La Rosa on 01/11/25 14:29 UA Blood 0 Sj/uL Last Edit by DEREK De La Rosa on 01/11/25 14:29 UA Specific [place] 1.030 Last Edit by DEREK De La Rosa on 01/11/25 14:29 UA Ketone Negative Last Edit by DEREK De La Rosa on 01/11/25 14:29 UA Bilirubin 0 mg/dL Last Edit by DEREK De La Rosa on 01/11/25 14:29 UA Glucose 1000 mg/dL Last Edit by DEREK De La Rosa on 01/11/25 14:29 Results Reviewed Results Reviewed: Laboratory Last Values Urine pH (Auto) 5.5 01/11/25 14:28 Specific [place] (Auto) 1.030 01/11/25 14:28 Urine Protein (Auto) 0 mg/dL 01/11/25 14:28 Glucose (UA)(Auto) 1000 mg/dL 01/11/25 14:28 Urine Ketones (Auto) Negative 01/11/25 14:28 Urine Blood (Auto) 0 Sj/uL 01/11/25 14:28 Urine Nitrite (Auto) Negative 01/11/25 14:28 Urine Bilirubin (Auto) 0 mg/dL 01/11/25 14:28 Urine Urobilinogen (Auto) 0.2 mg/dL 01/11/25 14:28 Leukocyte Esterase (Auto) 0 Claire/uL 01/11/25 14:28 Assessment & Plan Assessment & Plan (1) Recurrent UTI: Code(s): N39.0 - Urinary tract infection, site not specified Category: Medical Orders: Orders AMB Urinalysis Automated Today Z13.9 - Encounter for screening, unspecified Medications: New estradiol 0.01%(0.1mg/gram) vaginal 3XW apply pea sized amount to urethra 30 days 42.5 grams 1RF N39.0 - Urinary tract infection, site not specified Coding Diagnoses Recurrent UTI N39.0
== END 2025-01-11 15:09 | disposition home or self-care (01) ==
LOC: HO.HUSH 13:46
PROVIDERS: PCP Internal Medicine Geriatric Medicine; Visit Provider Urology
DX: Z13.9 Encounter for screening, unspecified (principal)

== ENCOUNTER → 2025-01-11 13:45 | Outpatient (BNVA) | payer OTHER, SELFPAY | PROVIDERS: PCP Internal Medicine Geriatric Medicine; Visit Provider Urology | DX: N39.0 Urinary tract infection, site not specified (principal) | CPT/HCPCS: 81003; 99202 ==

== ENCOUNTER 2025-01-22 08:52 | Outpatient (REF) | payer OTHER, SELFPAY ==
--- OUTSIDE RECORDS SUMMARY | 2025-01-22 09:26 | XMS_ITS | Encounter Summary ---
Author Organization [employer] Address 75 [facility] 7t [place] [address] Care Team Providers Care Scenic Artist Name Role Phone Audrey Calvo MD Primary Care Provider + Reason for Visit * Reason Comments Med Refill Encounter Details Date Type Department Care Team ([facility] st Contact Info) Description 08/18/2023 Refill [facility] MED[facility]INE 230 [place] [address] Audrey Calvo MD [address] [place] [address] Social History Tobacco Use Types Packs/Day Years [...] Care Team (Late st Contact Info) Description 01/29/2025 1:00 PM EDT Medication Management [address] [address] 03/12/2025 11:00 AM EDT Office Visit [address] [address] 04/05/2025 11:30 AM EDT Office Visit [address] [address] Audrey Calvo MD [address] [place] [address] documented as of this encounter Visit Diagnoses Not on filedocumented in this encounter Additional Health Concerns Assessment Noted Time PHQ-9 Depression Total Score: 0 12/23/19 23 9:08 AM EDT documented as of this encounter Care Teams Scenic Artist Relationship Specialty Start Date End Date Adurey Calvo MD [address] [place] [address] 6[address] PCP - General Family Medicine 05/09/17 documented as of this encounter
--- OUTSIDE RECORDS SUMMARY | 2025-01-22 09:26 | XMS_ITS | Encounter Summary ---
Author Organization [employer] Address 75 [facility] 7t [place] [address] Care Team Providers Care Animal Caretaker Supervisor Name Role Phone Audrey Calvo MD Primary Care Provider + Encounter Details Date Type Department Care Team ([facility] st Contact Info) Description 06/29/2023 Orders Only [facility] MED & PEDS [address] [place], [place] [phone] Emi Gill LPN Social History Tobacco Use [...] Description 01/29/2025 1:00 PM EDT Medication Management [facility] MEDICINE [address] [place] [address] 03/12/2025 11:00 AM EDT Office Visit [address] [address] 04/05/2025 11:30 AM EDT Office Visit [address] [address] Audrey Calvo MD [address] [place] [address] documented as of this encounter Visit Diagnoses Not on filedocumented in this encounter Additional Health Concerns Assessment Noted Time PHQ-9 Depression Total Score: 0 12/23/19 23 9:08 AM EDT documented as of this encounter Care Teams Animal Caretaker Supervisor Relationship Specialty Start Date End Date Audrey Calvo MD [address] [place] [phone] PCP - General Family Medicine 05/09/17 documented as of this encounter
--- OUTSIDE RECORDS SUMMARY | 2025-01-22 09:26 | XMS_ITS | Encounter Summary ---
Author Organization [employer] Address [address] [place] [address] [place], [place] [address] Care Team Providers Care Tap Dancer Name Role Phone Audrey Calvo MD Primary Care Provider + Encounter Details Date Type Department Care Team (Latest Contact Info) Description 01/31/2019 Abstract [facility] Dental, Provider, DDS Social History [...] Encounters Date Type Department Care Team ( st Contact Info) Description 01/29/2025 1:00 PM EDT Medication Management [facility] [address] [place] [address] 03/12/2025 11:00 AM EDT Office Visit [facility] [address] [place] [phone] 04/05/2025 11:30 AM EDT Office Visit [address] [address] Audrey Calvo MD [address] [place] [address] documented as of this encounter Visit Diagnoses Not on filedocumented in this encounter Care Teams Tap Dancer Relationship Specialty Start Date End Date Audrye Calvo MD [address] [place] [address]646 PCP - General Family Medicine 05/09/17 documented as of this encounter
--- OUTSIDE RECORDS SUMMARY | 2025-01-22 09:26 | XMS_ITS | Encounter Summary ---
Author Organization [employer] Address [address] [place] [address] [facility] [place] [address] Care Team Providers Care Vulcanizing Machine Operator Name Role Phone Audrey Calvo MD Primary Care Provider + Reason for Visit * Reason Comments Med Refill Encounter Details Date Type Department Care Team ([facility] st Contact Info) Description 01/02/2025 Refill [facility] MEDICINE [address] [place] [address] Audrey Calvo MD [address] [place] [address] Social History Tobacco Use Types Packs/Day Years [...] Date Recorded Patient Health Questionnaire-9 Score 0 12/26/2024 Patient Health Questionnaire-9 Score 0 12/26/2024 Last PHQ-9: Questionnaire Data Not on file 0 12/26/2024 Housing Stability Answer Date Recorded What is your housing situation today? I have marina dias 12/26/[address] you li ve. Do you have problems with any of the following? None of the above 12/26/2024 Food Insecurity Answer Date Recorded Within the past 12 months, y ou worried that your food would run out before you got money to buy more: Never True 12/26/2024 Within the past 12 months,th e food you bought just didn't last and you didn't have enough money to get more: Never True 05/2025 Transportation Answer Date Recorded In the past 12 months, has l ack of transportation kept you from medical appts, meetings, work or from getting things needed for daily living? No 12/26/2024 Utilities Answer Date Recorded In the past 12 months, has t he electric, gas, oil or water company threatened to shut off services in your home? No 12/26/2024 Depression Answer Date Recorded Patient Health Questionnaire-2 Score 0 12/26/2024 Internet Access Answer Date Recorded Internet Access Q1 No 12/26/2024 Internet Access Q2 Not on file 12/26/2024 Comments No Sex and Gender Information Value [...] Description 01/29/2025 1:00 PM EDT Medication Management [address] [address] 03/12/2025 11:00 AM EDT Office Visit [address] [address] 04/05/2025 11:30 AM EDT Office Visit [address] [address] Audrey Calvo MD [address] [place] [address] documented as of this encounter Visit Diagnoses Not on filedocumented in this encounter Additional Health Concerns Assessment Noted Time PHQ-9 Depression Total Score: 0 12/27/19 25 1:57 PM EDT documented as of this encounter Care Teams Vulcanizing Machine Operator Relationship Specialty Start Date End Date Audrey Calvo MD [address] [place] [address] PCP - General Family Medicine 05/09/17 documented as of this encounter
--- OUTSIDE RECORDS SUMMARY | 2025-01-22 09:26 | XMS_ITS | Data Portability ---
Author Organization [employer] [facility], [place] - [facility] Address [address] [place] [phone] Assessment Encounter Date Assessment Date Assessment LastModified by Organization Details LastModified Time 01/15/2025 01/15/2025 Evaluation in the field was performed by my due diligence coordinator colleague, as noted above, I provided real-time direction and supervision for this visit. This is a 69yo F presenting with concerns of hyperglycemia. She has DM2 and is taking all of her meds as prescribed. Wants to make sure levels are okay. Denies recent illness with inability to eat or drink. No abd pain, NVD. Does think she could have a UTI; was seen by urology last week who are following her and want her to repeat a UA before diagnosing her with UTI which she will be doing tomorrow. PE: General: Awake & alert, NAD Respiratory: Chest rise equal bilat, no increased wob CV: Regular rate, normal peripheral perfusion Impression: Hyperglycemia Plan: -VSS, appears well -Pt will be getting repeat UA by urology order tomorrow. Defer to them for management of urinary sx. -It seems as if pt's PCP requested this visit after pt c/p elevated blood sugar to PCP. -Today blood glucose level is 121. Pt reports it was 225 earlier. I'm not concerned for DKA with those levels and lack of other sx, no other inciting event for DKA. No other labs needed at this time. -Has bloodwork for PCP ordered which will be drawn tomorrow as well. Disposition: Remain at home [email or web address] Not available 01/15/2025 14:41:58 Plan of Treatment Reminders Order Date Submit Date Provider Last Modified By Organization Details Last Modified Time Details Appointments None recorde d. Lab glucose , fingers tick, blood 025 [facility] [address] [place] [address], [phone] 5 15:13:07 Referral None recorde d. Procedures None recorde d. Surgeries None recorde d. Imaging None recorde d. Medication Orders None recorde d. Patient TargetsNo targets recorded. Patient InstructionsNo instructions recorded. Reason for Referral None Reported. Results Created Date Observation Date Name Description Value Unit Range Abnormal Flag Note LastModifiedBy Organization Detail LastModifiedTime Result Notes None recorded. Medical Equipment None Reported. Allergies Allergen ID Allergen Name Allergen Category Reaction Reaction Severity Criticality Documentation Date Start Date Code Code System Note Provider Name and Address Organization Details Recorded Time 94485 aspirin medicatio n Not available Not available Not available 01/15/2025 1191 RxNorm Not Available [facility] - production 5 11:35:23 Medications Name Sig Start Date Stop Date Status Note LastModified by Organization Details LastModified Time metformin 500 mg tablet TAKE 2 TABLETS BY MOUTH TWICE DAILY IN THE MORNING AND EVENING WITH MEALS active Not Available Not Available N ot Available metoprolol succinate ER 50 mg tablet,exten ded release 24 hr TAKE 1 TABLET BY MOUTH EVERY MORNING active Not Available Not Available No t Available enalapril maleate 20 mg tablet TAKE 1 TABLET BY MOUTH EVERY MORNING active Not Available Not Available No t Available senna 8.6 mg tablet TAKE 2 TABLETS BY MOUTH EVERY DAY AT BEDTIME FOR CONSTIPATIO N active Not Available Not Available No t Available meloxicam 15 mg tablet TAKE 1 TABLET BY MOUTH EVERY DAY active Not Available Not Available No t Available chlorthalido ne 25 mg tablet TAKE 1 TABLET BY MOUTH EVERY MORNING active Not Available Not Available No t Available sulfamethoxa zole 800 mg-trimethop rim 160 mg tablet TAKE 1 TABLET BY MOUTH TWICE DAILY FOR FOURTEEN DAYS active Not Available Not Available No t Available oxycodone-ac etaminophen 10 mg-325 mg tablet TAKE 1 TABLET BY MOUTH EVERY TWELVE HOURS NEEDED FOR SEVERE PAIN active Not Available Not Available Not Available amlodipine 10 mg tablet TAKE 1 TABLET BY MOUTH AT BEDTIME active Not Available Not Available No t Available pantoprazole 40 mg tablet,delay ed release TAKE 1 TABLET BY MOUTH EVERY MORNING active Not Available Not Available No t Available esomeprazole magnesium 40 mg capsule,alexa yed release TAKE 1 CAPSULE BY MOUTH EVERY MORNING active Not Available Not Available No t Available lidocaine 5 % topical patch APPLY 1 PATCH TOPICALLY TO SKIN, LEAVE ON FOR 12 HOURS AND OFF FOR 12 HOURS DIRECTED active Not Available Not Available No t Available estradiol 0.01% (0.1 mg/gram) vaginal cream INSERT A PEA SIZED AMOUNT VAGINALLY TO THE URETHRA 3 TIMES A WEEK DIRECTED active Not Available Not Available No t Available hydrocortiso ne 2.5 % topical ointment APPLY TO THE AFFECTED AREA(S) ON HAND TWICE DAILY FOR ONE WEEK. CALL DOCTOR IF SYMPTOMS PERSIST. active Not Available Not Available No t Available clotrimazole 1 % topical cream APPLY TOPICALLY TO AFFECTED AREA(S) TWICE DAILY active Not Available Not Available Not Available loratadine 10 mg tablet TAKE 1 TABLET BY MOUTH EVERY MORNING active Not Available Not Available No t Available ezetimibe 10 mg tablet TAKE 1 TABLET BY MOUTH EVERY MORNING active Not Available Not Available No t Available rosuvastatin 40 mg tablet TAKE 1 TABLET BY MOUTH AT BEDTIME active Not Available Not Available No t Available Alcohol Prep Pads USE DIRECTED UP TO FOUR TIMES DAILY active Not Available Not Available Not Available pregabalin 75 mg capsule TAKE 1 CAPSULE BY MOUTH AT BEDTIME active Not Available Not Available No t Available Lantus Solostar U-100 Insulin 100 unit/mL (3 mL) subcutaneous pen INJECT 15 UNITS SUBCUTANEOU SLY EVERY EVENING active Not Available Not Available No t Available diclofenac 1 % topical gel APPLY 2 GRAMS TOPICALLY TO AFFECTED AREA(S) THREE TIMES DAILY NEEDED FOR PAIN active Not Available Not Available No t Available Vitamin D3 50 mcg (2,000 unit) capsule TAKE 1 CAPSULE BY MOUTH EVERY MORNING active Not Available Not Available No t Available calcium 600 mg (as carbonate)-v itamin D3 20 mcg (800 unit) tablet TAKE 1 TABLET BY MOUTH TWICE DAILY IN THE MORNING AND IN THE EVENING active Not Available Not Available No t Available Arnuity Ellipta 100 mcg/actuatio n powder for inhalation INHALE 1 PUFF BY MOUTH EVERY DAY AT THE SAME TIME RINSE MOUTH AFTER USING active Not Available Not Available Not Available Pentips Pen Needle 32 gauge x 532 USE ONCE DAILY DIRECTED active Not Available Not Available No t Available Praluent Pen 150 mg/mL subcutaneous pen injector INJECT 150 MG SUBCUTANEOU SLY EVERY 2 WEEKS active Not Available Not Available No t Available naloxone 4 mg/actuation nasal spray FOR SUSPECTED OPIOID OVERDOSE. SPRAY 0.1mL IN ONE NOSTRIL. REPEAT IN ALTERNATE NOSTRIL 2-3 MINUTES IF NEEDED. SEEK MEDICAL ATTENTION IMMEDIATELY EVEN IF PATIENT RESPONDS. active Not Available Not Available No t Available Clear Eyes Natural Tears 0.5 %-0.6 % drops PLACE 2 DROPS INTO THE AFFECTED EYE(S) THREE TIMES DAILY IN THE MORNING, AT NOON, AND AT BEDTIME NEEDED FOR DRY EYES active Not Available Not Available No t Available UltiGuard SafePack-Pen Needle 32 gauge x 5/32 USE ONCE DAILY DIRECTED active Not Available Not Available No t Available FreeStyle Marcos 2 Sensor kit TEST BLOOD SUGAR DIRECTED. CHANGE EVERY 14 DAYS active Not Available Not Available No t Available Trulicity 3 mg/0.5 mL subcutaneous pen injector INJECT ONE PEN (= 3MG) SUBCUTANEOU SLY ONCE A WEEK DIRECTED active Not Available Not Available No t Available Trulicity 4.5 mg/0.5 mL subcutaneous pen injector INJECT ONE PEN (= 4.5MG) SUBCUTANEOU SLY ONCE A WEEK DIRECTED active Not Available Not Available No t Available Capzix 0.1 % topical cream APPLY A THIN LAYER TOPICALLY UP TO FOUR TIMES DAILY NEEDED FOR PAIN active Not Available Not Available No t Available Vitals Date Recorded Respiratory rate Body weight Heart rate Body temperature Oxygen saturation Oxygen saturation in Arterial blood by Pulse oximetry Body height Systolic blood pressure Diastolic blood pressure Provider Name and Address Organization Details Last Updated DateTime 5 18 /min 71486.1 52 g 73 /min 98.6 [degF] 97 % 97 % 160.02 cm 118 mm[Hg] 62 mm[Hg] Not Available [facility] - production 13:38:24 Social History None recorded. Functional Status None recorded. Mental Status None recorded. Family History Nothing Reported. Medical History No medical history recorded. Gynecological HistoryNo gynecological history recorded. Obstetrics History GPAL:G 0 P 0 0 0 0 Past Encounters Encounter ID Performer Location Encounter Start Date Encounter Closed Date Diagnosis/Indication Diagnosis SNOMED-CT Code Diagnosis ICD10 Code Diagnosis Note [id number] Ginger Steele MD Main - [facility] [address] [place] [phone] 01/15/2025 13:19:27 01/15/2025 15:05:54 Hyperglycemia 47551209 R73.9 Health Concerns Section Related Observation LastModified by Organization Detai ls LastModified Time None Recorded Concern Status LastModified by Organization Details LastModified Time None Recorded Advance Directives Directive None Recorded Payers Encounter Date Sequence Insurance Name Policy Number Policy Magana Covered Member ID Magana Member ID Guarantor Name 01/15/2025 1 [facility] - DOS ON OR AFTER 2022 - DUAL ELIGIBLE - GROUP HOME OPTIONS AND ONE CARE (MEDICARE REPLACEMENT/AD VANTAGE - HMO) Kalyani Ling [id number] Kalyani Ling Notes Date Note Type Note Provider Name and Address Organization Details Recorded Time 01/15/2025 text/html HPI: No salesperson furs needed as this life underwriter speaks Sudanese. Call returned to Kalyani Rogers to triage below. Reports having elevated BS reading of 199mg/dL at noon time, had coffee with Splenda and cream. Per pt today having BS reading of 153mg/dL fasting. Per pt is taking Lantus 15 units nightly. Not following low carb/sugar and high protein. Pt is drinking adequate amounts of water. Pt does endorse nausea and urinary frequency along with odor. Not dark or cloudy. Per pt was seen by Urologist on either or Tuesday last week, was told could possibly have UTI but needed to repeat UA, pt has not returned to repeat. Per pt last dose of weekly Trulicity was on Tuesday. Pt states unable to come into [facility] or return to Urology office today. Agrees to [facility] referral for evaluation. Confirmed demographics and allergies. Advised to be contacted by [facility] team once ETA available for medic. Pt verbalized understanding. ...................... ...................... ...................... ...................... ...................... ...................... ......... Chief Complaints: Urinary Symptoms PMH: Asthma, Gastroesophageal Reflux Disease (GERD), Obesity, Hypertension, Diabetes Mellitus Type 2, Osteoarthritis, Urinary Tract Infections (UTI) PMH Reviewed at 01/15/2025:35 Allergies Reviewed at 01/15/2025:35 ...................... ...................... ...................... ...................... ...................... ...................... ......... Prints And Drawings Curator Note From Yadi Ness: Sent to a call for a pt complaining of high blood sugar and possible UTI. SC8 arrives on scene, pt is alert and oriented, airway is patent. Pt's primary language is Sudanese. Pt's family serves as salesperson furs. Pt has history of DM2 and frequent UTI's. Pt complains of chronic dizziness and chronic dysuria. Pt states she was last treated for a UTI last month, and last saw urologist last month. Pt states she was supposed to have a repeat U/A, but never had it done. Pt states she plans to go to lab tomorrow for bloodwork/urine collected. Pt states she has also had an increase in BG ranging from 100's-225. Pt states she takes Lantus and had her Trulicity dosage increased last week by per PCP. Pt states she was concerned about high blood sugar and contacted clinic today, who called [facility] for a visit. Pt denies hartman, cp, sob, cough, runny nose, vomiting, diarrhea, hematuria, fever, or loc. BP:118/62, P:73, RR:18, SpO2:97%RA, T:98.6, B; Head: unremarkable; Lung sounds: clear bilaterally; Abdomen: soft, non-tender, no distention; Back: unremarkable; Extremities: unremarkable; Urine sample obtained; urine dip results: uploaded to [facility]. [facility] consulted and pt is advised to have labs drawn/obtained tomorrow, and follow up with PCP. Pt is reassured BG is not in an urgent/unsafe range. Pt advised urine dip: neg; Red flags discussed. Pt has no further questions. [facility] Lab Orders: glucose, fingerstick, blood: Performed ...................... ...................... ...................... ...................... ...................... ...................... ......... [facility] Consulted: Ginger Steele ...................... ...................... ...................... ...................... ...................... ...................... ......... Disposition: Fulfilled Ginger Steele MD [address] [place] [address],[address] [facility], [place], [phone], [employer] 01/15/2025 14:53:12 OBGyn Episode No OBEpisode recorded.
--- OUTSIDE RECORDS SUMMARY | 2025-01-22 09:26 | XMS_ITS | Encounter Summary ---
Author Organization [employer] Address [address] [facility] 7t [place] [address] Care Team Providers Care Pet Supplies Salesperson Name Role Phone Audrey Calvo MD Primary Care Provider + Reason for Visit * Reason Comments Med Refill Encounter Details Date Type Department Care Team ([facility] st Contact Info) Description 07/06/2023 Refill [facility] [address] [place], [place] [phone] Audrey Calvo MD [address] [place] [address] Lumbago with sciatica, unspecified side Social History [...] Description 01/29/2025 1:00 PM EDT Medication Management [address] [address] 03/12/2025 11:00 AM EDT Office Visit [address] [address] 04/05/2025 11:30 AM EDT Office Visit [address] [address] Audrey Calvo MD [address] [place] [address] documented as of this encounter Visit Diagnoses Diagnosis Lumbago with sciatica, unspecified side documented in this encounter Additional Health Concerns Assessment Noted Time PHQ-9 Depression Total Score: 0 12/23/19 23 9:08 AM EDT documented as of this encounter Care Teams Pet Supplies Salesperson Relationship Specialty Start Date End Date Audrey Calvo MD [address] [place] [phone] PCP - General Family Medicine 05/09/17 documented as of this encounter
--- OUTSIDE RECORDS SUMMARY | 2025-01-22 09:26 | XMS_ITS | Encounter Summary ---
Author Organization [employer] Address [address] [place] [address] [address] [address] Care Team Providers Care Live In Housekeeper Nanny Name Role Phone Audrey Calvo MD Primary Care Provider + Reason for Visit * Reason Onset Date Comments Appointment Request 12/11/2024 Encounter Details Date Type Department Care Team ([facility] Contact Info) Description 12/11/2024 Telephone [facility] MEDICINE [address] [place], [place] [phone] Audrey Calvo MD [address] [place], [place] [phone] Appointment Request Social History Tobacco Use Types [...] the past 12 months, has t he [employer], gas, oil or water [email or web address] threatened to shut off services in your [...] encounter Miscellaneous Notes * Telephone Encounter - Edosn Hess - 12/11/2024 8:56 AM EDT Tc from pt requesting to R/s Apt from 12/11/24. Contact pt at [phone] documented in this encounter Plan of Treatment Upcoming Encounters Date Type Department Care Team (Late st Contact Info) Description 01/29/2025 1:00 PM EDT Medication Management [address] [address] 03/12/2025 11:00 AM EDT Office Visit [address] [address] 04/05/2025 11:30 AM EDT Office Visit [address] [address] Audrey Calvo MD [address] [place] [address] documented as of this encounter Visit Diagnoses Not on filedocumented in this encounter Additional Health Concerns Assessment Noted Time PHQ-9 Depression Total Score: 3 02/14/20 24 1:55 PM EDT documented as of this encounter Care Teams Live In Housekeeper Nanny Relationship Specialty Start Date End Date Audrey Calvo MD [address] [place] [address] PCP - General Family Medicine 05/09/17 documented as of this encounter
--- OUTSIDE RECORDS SUMMARY | 2025-01-22 09:26 | XMS_ITS | Encounter Summary ---
Author Organization [employer] Address [address] [facility] 7t [place] [address] Care Team Providers Care Assistant Chief Of Police Name Role Phone Audrey Calvo MD Primary Care Provider + Encounter Details Date Type Department Care Team (Late st Contact Info) Description 10/19/2023 Orders Only [facility]S [address] [place], [place] [phone] Nila Gallardo LPN Social History Tobacco Use [...] Description 01/29/2025 1:00 PM EDT Medication Management [facility] MEDICINE [address] [place] [address] 03/12/2025 11:00 AM EDT Office Visit [address] [address] 04/05/2025 11:30 AM EDT Office Visit [address] [address] Audrey Calvo MD [address] [place] [address] documented as of this encounter Visit Diagnoses Not on filedocumented in this encounter Additional Health Concerns Assessment Noted Time PHQ-9 Depression Total Score: 0 12/23/19 23 9:08 AM EDT documented as of this encounter Care Teams Assistant Chief Of Police Relationship Specialty Start Date End Date Audrey Calvo MD [address] [place] [address] PCP - General Family Medicine 05/09/17 documented as of this encounter
--- OUTSIDE RECORDS SUMMARY | 2025-01-22 09:26 | XMS_ITS | Encounter Summary ---
Author Organization [employer] Address [address] [facility] 7t [place] [address] Care Team Providers Care Mold Dumper Name Role Phone Audrey Calvo MD Primary Care Provider + Encounter Details Date Type Department Care Team ([facility] st Contact Info) Description 12/02/2023 Telephone [facility] MEDICINE [address] [place], [place] [phone] Audrey Calvo MD [address] [place] [address] Social History Tobacco Use Types Packs/Day Years [...] Description 01/29/2025 1:00 PM EDT Medication Management [address] [address] 03/12/2025 11:00 AM EDT Office Visit [address] [address] 04/05/2025 11:30 AM EDT Office Visit [address] [address] Audrey Calvo MD [address] [place] [address] documented as of this encounter Visit Diagnoses Not on filedocumented in this encounter Additional Health Concerns Assessment Noted Time PHQ-9 Depression Total Score: 0 12/23/19 23 9:08 AM EDT documented as of this encounter Care Teams Mold Dumper Relationship Specialty Start Date End Date Audrey Calvo MD [address] [place] [address] PCP - General Family Medicine 05/09/17 documented as of this encounter
--- OUTSIDE RECORDS SUMMARY | 2025-01-22 09:26 | XMS_ITS | Encounter Summary ---
Author Organization [employer] Address [address] [place] [address] Care Team Providers Care Property Maintenance Supervisor Name Role Phone Audrey Calvo MD Primary Care Provider + Encounter Details Date Type Department Care Team (Late st Contact Info) Description 10/07/2022 Orders Only [facility] MEDICINE [address] [place] [address] Nila Gallardo LPN Social History Tobacco Use [...] Description 01/29/2025 1:00 PM EDT Medication Management [address] [address] 03/12/2025 11:00 AM EDT Office Visit [address] [address] 04/05/2025 11:30 AM EDT Office Visit [address] [address] Audrey Calvo MD [address] [place] [phone] documented as of this encounter Visit Diagnoses Not on filedocumented in this encounter Care Teams Property Maintenance Supervisor Relationship Specialty Start Date End Date Audrey Calvo MD [address] [place] [address] PCP - General Family Medicine 05/09/17 documented as of this encounter
--- OUTSIDE RECORDS SUMMARY | 2025-01-22 09:26 | XMS_ITS | Encounter Summary ---
Author Organization [employer] Address [address] [facility] 7t [place] [address] Care Team Providers Care Long Term Care Social Worker Name Role Phone Audrey Calvo MD Primary Care Provider + Encounter Details Date Type Department Care Team ([facility] st Contact Info) Description 07/02/2024 Orders Only [facility] MEDICINE [address] [place], [place] [phone] Cassia Juarez MD [address] [place], [place] [phone] Social History Tobacco Use Types Packs/Day Years [...] Description 01/29/2025 1:00 PM EDT Medication Management [facility] MEDICINE [address] [place] [address] 03/12/2025 11:00 AM EDT Office Visit [address] [address] 04/05/2025 11:30 AM EDT Office Visit [address] [address] Audrey Calvo MD [address] [place] [address] documented as of this encounter Visit Diagnoses Not on filedocumented in this encounter Additional Health Concerns Assessment Noted Time PHQ-9 Depression Total Score: 3 02/14/20 24 1:55 PM EDT documented as of this encounter Care Teams Long Term Care Social Worker Relationship Specialty Start Date End Date Audrey Calvo MD [address] [place] [address] PCP - General Family Medicine 05/09/17 documented as of this encounter
--- OUTSIDE RECORDS SUMMARY | 2025-01-22 09:26 | XMS_ITS | Encounter Summary ---
Author Organization [employer] Address [address] [place] [address] [address] [place] [address] Care Team Providers Care Medical Registrar Name Role Phone Audrey Calvo MD Primary Care Provider + Encounter Details Date Type Department Care Team (Late st Contact Info) Description 10/26/2022 Orders Only [facility] MEDICINE [address] [place] [address] [phone] Nila Gallardo LPN Social History Tobacco Use [...] Description 01/29/2025 1:00 PM EDT Medication Management [facility] [address] [place] [id number] 03/12/2025 11:00 AM EDT Office Visit [address] [address] 04/05/2025 11:30 AM EDT Office Visit [address] [phone] Audrey Calvo MD [address] [facility] [place] [address] documented as of this encounter Procedures Procedure Name Priority Date/Time Associated Diagnosis Comments BI MAMMOGRAM SCREENING TOMOSYNTHESIS BILATERAL Routine 11/09/2022 8:12 AM EST documented in this encounter Results * BI Mammogram Screening Tomosynthesis Bilateral (11/09/2022 8:12 AM EST) Anatomical Region Laterality Modality Breast Bilateral Mammography 11/09/2022 8:12 AM EST Narrative 11/10/2022 8:58 AM EST ? [facility] [place] ? [address] ?[place] [id number] ? Mammography Report ? Signed ? Patient: Kalyani Rogers I ?MR#: [id number] ?? 83 ? : 1955 ?Acct:[id number] ? Age/Sex: 67 / F ?ADM Date: 11/09/22 ? Loc: HO.MAMMO ? Attending Dr: Audrey Calvo MD ? Ordering Physician: Audrey Calvo MD ?Results: 1Ne ?? gative ? Date of Service: 11/09/22 ?Follow Up: 1 Year From Orig ?? inal Mammogram ? Procedure(s): MM tomosynthesis screening BI ?? Accession Number(s): [id number] ? cc: Audrey Calvo MD ? EXAMINATION: [...] ?11/10/22854 ? DD/ 1 ? TD/TT: ? Mesh Cutter: SK ? Procedure Note Ricky Guevara - 11/10/2022 [facility] [address] [place] [address] Dr. [place], [place] [id number] Mammography Report Signed Patient: Kalyani Rogers IMR#: [id number] [birth year] : 7Acct:[id number] Age/Sex: 67 / FADM Date: 11/09/22 Loc: NESTOR Attending Dr: Audrey Calvo MD Ordering Physician: Audrey Calvoesults: 1Ne gative Date of Service: 11/09/22Follow Up: 1 Year From Orig inal Mammogram Procedure(s): MM tomosynthesis screening BI Accession Number(s): [id number] cc: Audrey Calvo MD EXAMINATION: MM SCREENING [...] in OV> 11/10/22 0855 DD/ 0812 TD/TT: Mesh Cutter: [facility] External Provider IMG BI PROCEDURES Edited Result - Final documented in this encounter Visit Diagnoses Not on filedocumented in this encounter Care Teams Medical Registrar Relationship Specialty Start Date End Date Audrey Calvo MD [address] [place] [phone] PCP - General Family Medicine 05/09/17 documented as of this encounter
--- OUTSIDE RECORDS SUMMARY | 2025-01-22 09:26 | XMS_ITS | Encounter Summary ---
Author Organization [employer] Address [address] [facility] [address] [place] [address] Care Team Providers Care Parimutuel Ticket Cashier Name Role Phone Audrey Calvo MD Primary Care Provider + Reason for Visit * Reason Comments Med Refill Encounter Details Date Type Department Care Team ([facility] st Contact Info) Description 10/06/2023 Refill [facility]INE [address] [place], [place] [phone] Audrey Calvo MD [address] [place] [address] Social History Tobacco Use Types Packs/Day Years [...] Description 01/29/2025 1:00 PM EDT Medication Management [address] [address] 03/12/2025 11:00 AM EDT Office Visit [address] [address] 04/05/2025 11:30 AM EDT Office Visit [address] [address] Audrey Calvo MD [address] [place] [phone] documented as of this encounter Visit Diagnoses Not on filedocumented in this encounter Additional Health Concerns Assessment Noted Time PHQ-9 Depression Total Score: 0 12/23/19 23 9:08 AM EDT documented as of this encounter Care Teams Parimutuel Ticket Cashier Relationship Specialty Start Date End Date Audrey Calvo MD [address] [place] [phone] PCP - General Family Medicine 05/09/17 documented as of this encounter
--- OUTSIDE RECORDS SUMMARY | 2025-01-22 09:27 | XMS_ITS | Clinical Summary ---
Author Organization [employer] Address [address] [place] [address] [address] [place] [address] Care Team Providers Care Architectural Drafting Instructor Name Role Phone Audrey Calvo MD Primary Care Provider + Allergies Active Allergy Reactions Criticality Noted Date Comments Aspirin 08/15/2018 Gramineae Pollens Shortness of breath High 3 Medications FREESTYLE LITE test stripIndications :Type 2 diabetes mellitus with unspecified complications ([facility]) TEST BLOOD SUGAR TWICE DAILY 100 strip 11 023 Active TRUEplus Lancets 33G miscIndications: Type 2 diabetes mellitus with unspecified complications ([facility]) TEST BLOOD SUGAR TWICE DAILY 100 each 11 023 Active insulin pen needle (UltiGuard SafePack Pen Needle) 32G x 4 mm misc Use once daily 100 each 4 024 Active Lantus SoloStar 100 UNIT/ML penIndications:T ype 2 diabetes mellitus with hyperglycemia, without long-term current use of insulin ([facility]) Inject 15 units subcutaneously every evening 3 mL 11 024 Active Continuous Glucose Sensor (FreeStyle Marcos 2 Sensor) misc TEST BLOOD SUGAR DIRECTED. CHANGE EVERY 14 DAYS 6 each 3 024 2024 Active Alcohol Swabs (Alcohol Prep) 70 % pads USE DIRECTED UP TO 4 TIMES PER DAY 100 each 11 024 Active rosuvastatin (Crestor) 40 MG tablet TAKE 1 TABLET BY MOUTH AT BEDTIME 90 tablet 3 024 Active chlorthalidone (Hygroton) 25 MG tabletIndication s:HTN (hypertension), benign TAKE 1 TABLET BY MOUTH EVERY MORNING 90 tablet 3 Active pregabalin (Lyrica) 75 MG capsuleIndicatio ns:Diabetic polyneuropathy associated with type 2 diabetes mellitus (CMS/HCC) TAKE 1 CAPSULE BY MOUTH AT BEDTIME 30 capsule 2 Active lidocaine (Lidoderm) 5 % patchIndications :Primary osteoarthritis of both knees,Other chronic pain APPLY 1 PATCH TOPICALLY TO SKIN, LEAVE ON FOR 12 HOURS AND OFF FOR 12 HOURS DIRECTED 30 patch 3 Active enalapril (Vasotec) 20 MG tabletIndication s:Primary hypertension TAKE 1 TABLET BY MOUTH EVERY MORNING 90 tablet 1 Active Dulaglutide (Trulicity) 4.5 MG/0.5ML solution auto-injectorInd ications:Type 2 diabetes mellitus with hyperglycemia, without long-term current use of insulin (CMS/HCC) Inject 4.5 mg under the skin 1 (one) time per week. 2 mL Active Polyvinyl Alcohol-Povidone 5-6 MG/ML solution Administer 2 drops into affected eye(s) if needed in the morning, at noon, and at bedtime (dry eye). 15 mL Active oxyCODONE-acetam inophen (Percocet) 10-325 MG tabletIndication s:Achilles tendinitis of right lower extremity Take 1 tablet by mouth every 12 (twelve) hours if needed for severe pain for up to 28 days. 56 tablet 2024 Active Narcan 4 MG/0.1ML nasal spray FOR SUSPECTED OPIOID OVERDOSE. SPRAY 0.1mL IN ONE NOSTRIL. REPEAT IN ALTERNATE NOSTRIL 2-3 MINUTES IF NEEDED. SEEK MEDICAL ATTENTION IMMEDIATELY EVEN IF PATIENT RESPONDS. 2 each Active fluticasone furoate (Arnuity Ellipta) 100 MCG/ACT inhaler Inhale 1 puff Once per day. 1 each 2025 Active ezetimibe (Zetia) 10 MG tablet Take 1 tablet (10 mg) by mouth in the morning. 90 tablet 3 Active albuterol (Ventolin HFA) 108 (90 Base) MCG/ACT inhaler Inhale 2 puffs if needed for wheezing or shortness of breath. Every 4 to 6 hours 021 Active albuterol (2.5 MG/3ML) 0.083% nebulizer solution Inhale 3 mL in the morning and 3 mL at noon and 3 mL in the evening and 3 mL before bedtime. 022 Active esomeprazole (NexIUM) [address] capsule Take 1 capsule by mouth in the morning. 024 Active Blood Pressure kitIndications:P rimary hypertension Use to monitor blood pressure at home 1 kit 025 Active albuterol 108 (90 Base) MCG/ACT inhaler INHALE 2 PUFFS BY MOUTH EVERY 4 TO 6 HOURS NEEDED 8.5 g 3 023 2024 Discontinued(D uplicate order (will not trigger notification to Pharmacy)) albuterol (Ventolin HFA) 108 (90 Base) MCG/ACT inhaler inhale 2 puff by inhalation route every 4 - 6 hours as needed 013 2024 Discontinued(D uplicate order (will not trigger notification to Pharmacy)) fluticasone furoate (Arnuity Ellipta) 100 MCG/ACT inhaler Inhale 1 puff in the morning. 1 each 024 2024 Discontinued(R eorder (will not trigger notification to Pharmacy)) Trulicity 3 MG/0.5ML solution pen-injectorIndi cations:Type 2 diabetes mellitus with hyperglycemia, without long-term current use of insulin ([facility]) INJECT ONE PEN (= 3MG) SUBCUTANEOUSLY ONCE A WEEK DIRECTED 2 mL 024 2024 Discontinued(D ose adjustment) metFORMIN (Glucophage) 500 MG tablet TAKE 2 TABLETS BY MOUTH TWICE DAILY IN THE MORNING AND EVENING WITH MEALS 360 tablet 2024 Discontinued(S marcus effects) capsaicin (Capzasin-HP) 0.1 % creamIndications :Primary osteoarthritis of both knees,Other chronic pain Apply thin layer by topical route up to 4 times daily for pain. 45 g 3 024 2024 Discontinued(M ed list cleanup (will not trigger notification to Pharmacy)) hydrocortisone 2.5 % ointmentIndicati ons:Dermatitis APPLY TO THE AFFECTED AREA(S) ON HAND TWICE DAILY FOR ONE WEEK. CALL DOCTOR IF SYMPTOMS PERSIST. 28.35 g 1 024 2024 Discontinued(M ed list cleanup (will not trigger notification to Pharmacy)) clotrimazole (Lotrimin) 1 % creamIndications :Candidiasis of perineum APPLY TOPICALLY TO THE AFFECTED AREA(S) TWICE DAILY 30 g 2 024 2024 Discontinued(M ed list cleanup (will not trigger notification to Pharmacy)) pantoprazole (ProtoNix) 40 MG EC tabletIndication s:Gastroesophage al reflux disease without esophagitis Take 1 tablet (40 mg) by mouth in the morning. Do not crush, chew, or split. 30 tablet 024 2024 Discontinued(M ed list cleanup (will not trigger notification to Pharmacy)) Diclofenac Sodium 1 % gelIndications:P rimary osteoarthritis of both knees,Other chronic pain APPLY 2 GRAMS TOPICALLY TO AFFECTED AREA(S) THREE TIMES DAILY NEEDED FOR PAIN 100 g 1 024 2024 Discontinued(M ed list cleanup (will not trigger notification to Pharmacy)) metoprolol succinate XL (Toprol-XL) 50 MG 24 hr tabletIndication s:Primary hypertension TAKE 1 TABLET BY MOUTH EVERY MORNING 30 tablet 3 024 2024 Discontinued(N on-compliance) amLODIPine (Norvasc) 10 MG tablet TAKE 1 TABLET BY MOUTH AT BEDTIME 30 tablet 3 2024 Discontinued(N on-compliance) loratadine (Claritin) 10 MG tabletIndication s:Chronic rhinitis TAKE 1 TABLET BY MOUTH EVERY MORNING 90 tablet 3 2024 Discontinued(T herapy completed) ezetimibe (Zetia) 10 MG tablet TAKE 1 TABLET BY MOUTH EVERY MORNING 90 tablet 3 2024 Discontinued(N on-compliance) cholecalciferol (D3 Super Strength) 50 MCG (1999 UT) capsule TAKE 1 CAPSULE BY MOUTH EVERY MORNING 90 capsule 3 2024 Discontinued(N on-compliance) Praluent 150 MG/ML injection INJECT 150 MG SUBCUTANEOUSLY EVERY 2 WEEKS 2 mL 1 025 2024 Discontinued(M ed list cleanup (will not trigger notification to Pharmacy)) oxyCODONE-acetam inophen (Percocet) 10-325 MG tabletIndication s:Achilles tendinitis of right lower extremity Take 1 tablet by mouth every 12 (twelve) hours if needed for severe pain for up to 28 days. 56 tablet 025 2024 Discontinued(R eorder (will not trigger notification to Pharmacy)) Active Problems Problem Noted Date Diagnosed Date Decreased hearing of both ears 12/26/2024 Assessment & Plan (01/10/2025 9:53 AM EDT): Patient already referred for audiology testing by her PCP and follow-up with her after Assessment & Plan (01/01/2025 4:51 PM EDT): Referred for audiology testing and follow-up with me after assisted current use of opiate analgesic 2023 Overview (10/18/2024): Medication: Percocet 10-325mg Q12H PRN Indication: cervical spondylosis, bilat knee OA Last EAP CLINICIAN Agreement: 10/16/24 Tier III (EAP CLINICIAN visit every 4-6 months) Assessment & Plan [...] Screening mammogram for breast cancer 12/23/2023 Routine physical examination 12/23/2023 Assessment & Plan (01/10/2025 9:57 AM EDT): Patient here for a routine physical exam that showed bilateral hearing loss, for which she is already being referred to Audiology by PCP Preventive Health Care: Mammo 01/17/2024 Normal DEXA: 12/07/2022: Normal Pap: referred to [facility] by PCP Colonoscopy 08/28/2019 Dr Howard Assessment & Plan (01/01/2025 4:52 PM EDT): Patient will call [facility] SERVICES OFFICER to reschedule Pap smear, I will follow-up at next appointment Acute nausea with nonbilious vomiting 10/20/2023 Assessment [...] with dietitian from weight management program with [facility] ct scan to fu renal abcess is pending Exercise counseling 12/22/2022 Encounter for preventive health examination 10/2022 Assessment & Plan (01/01/2025 4:53 PM EDT): Advise to have COVID booster and RSV immunization at earliest convenience. All other adult immunizations are up-to-date Mammogram is up-to-date, she will schedule appointment after 01/16/2025 She feels safe at home and is able to reach out for safety Follow-up with me in 4 to 6 weeks Assessment & Plan (12/23/2023 3:17 PM EDT): Discussed with patient re increase fresh fruit and vegetable intake. Counseled re moderate exercise as tolerated, up to 20min/d Patient feels safe at home. PAP smear: Overdue , patient wants to be referred to [facility]. Mammogram Overdue, I will schedule mammo. Bone [...] scheduled for PAP smear, will refer to order control clerk blood bank Mammogram: up to date, next one due [...] incontinence of urine 11/18/2022 Assessment & Plan (01/01/2025 4:49 PM EDT): Reminded her regarding Kegel's exercises. Prescription for urinary incontinence DME's including sanitary pads, bed under pads etc. Assessment & Plan (11/18/2022 2:20 PM EST): [...] Plan (10/20/2022 2:32 PM EST): S/p EGD 2016. Symptoms seem to be exacerbated after she [...] between Reminded Pt to be compliant with EAP CLINICIAN Tubular adenoma of colon 07/17/2018 Calcaneal spur 07/05/2017 Assessment & Plan (01/01/2025 4:49 PM EDT): Rx diabetic shoes and inserts, needs special support for calcaneal sports Refer to podiatry Knee pain 05/19/2017 Right bundle branch block [...] meals Primary hypertension 02/11/2012 Assessment & Plan (01/01/2025 4:49 PM EDT): - uncontrolled, she did not take medications this morning. - no medication changes today, advised to take medications every time before comes to her appointment with me. - Counseled re low salt diet/increase moderate physical activity. - Check home BP BIW and prn CP/AZEVEDO/DEL RIO - Non smoking patient. - f/u in 4 weeks Assessment & Plan (02/14/2024 2:54 PM EDT): [...] use of insulin 02/11/2012 Assessment & Plan (01/01/2025 4:51 PM EDT): Uncontrolled, A1c is not improving. Increase Trulicity to 4.5 mg and follow-up with me within 6 to 8 weeks Continue Lantus 15 units Counseled re more frequent low calorie/carb meals. Check fgstk BID Encouraged physical activity as tolerated. FU in 4 weeks Assessment & Plan (02/14/2024 2:56 PM EDT): [...] fgstk daily Encouraged physical activity as tolerated. Incipient senile cataract 02/11/2012 Obstructive sleep apnea syndrome 10/10/2011 Overview (10/27/2023): Sleep study/titration on 09/10/23 On auto CPAP 5-15 cmH2O Assessment & Plan (12/23/2023 3:09 PM EDT): Sleep study on 08/2023, rx for CPAP sent to [facility] on 11/03/23 Patient will fu with [facility] re provider for CPAP She's aware that [...] fracture or joint effusion. Assessment & Plan (01/01/2025 4:50 PM EDT): Recurrent, failed PT has difficulty ambulation, I will refer to orthopedics Assessment & Plan (10/18/2024 4:56 PM EST): [...] of multiple topical analgesics after discussion with [facility] Pharmacist - meds sent to pharmacy below. [...] on oxycodone PRN Continue close fu with EAP CLINICIAN program We have done [employer] education re [...] Diagnosed Date Resolved Date Chronic bronchitis 10/20/2022 Severe obesity 02/11/2012 12/25/2024 Diabetic polyneuropathy 03/10/201101/18 Assessment & Plan (11/18/2022 [...] Encounters Date Type Department Care Team Description 01/15/2025 Refill [facility] [address] [place] [address] Audrey Calvo MD Primary hypertension 01/11/2025 Refill [facility] [address], [place] [phone] Audrey Calvo MD 01/11/2025 Travel 01/10/2025 9:30 AM EDT Office Visit [facility] [address] [place] [address] Wes Huffman MD Decreased hearing of both ears (Primary Dx); Routine physical examination 01/10/2025 Refill [facility] [address] [place] [address] Tiaar Roper MD 01/10/2025 Travel 01/09/2025 Refill [facility] [address] [place], [place] [phone] Audrey Calvo MD Achilles tendinitis of right lower extremity 01/09/2025 Orders Only [facility] [address] [place] [phone] Audrey Calvo MD Primary hypertension (Primary Dx) 01/08/2025 11:00 AM EDT Clinical Support [facility] [address] [place] [phone] Lola Garcia RN Other chronic pain (Primary Dx); 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 01/08/2025 Refill [facility] [address] [facility] [place] [address] Lola Garcia RN Achilles tendinitis of right lower extremity 01/08/2025 Telephone [facility] [address] [place] [phone] Audrey Calvo MD medication 01/08/2025 Telephone [facility] [address] [place] [phone] Audrey Calvo MD medication 01/08/2025 Travel 01/04/2025 Telephone [facility] [address] [place] [phone] Audrey Calvo MD Follow-up 01/03/2025 Telephone [facility] [address] [place] [phone] Audrey Calvo MD Elaine recall 01/02/2025 Telephone [facility] [address] [place] [phone] Audrey Calvo MD Durable Medical Equipment 01/02/2025 Refill [facility] [address] [place] [phone] Audrey Calvo MD 12/26/2024 2:15 PM EDT Office Visit [facility] [address] [place] [phone] Audrey Calvo MD Primary hypertension (Primary Dx); Type 2 diabetes mellitus with hyperglycemia, without long-term current use of insulin ([facility]); Primary osteoarthritis of left knee; Stress incontinence of urine; Calcaneal spur of left foot; Bilateral hearing loss, unspecified hearing loss type; Routine Papanicolaou smear; Encounter for preventive health examination 12/26/2024 Travel 12/25/[address] [phone] Audrey Calvo MD Chart prep 12/12/[address] [phone] Audrey Calvo MD Reschedule 12/12/2024 Travel 12/11/2024 Refill [facility] [address] [place] [address] Audrey Calvo MD Achilles tendinitis of right lower extremity 12/11/[address] [address] Audrey Calvo MD Appointment Request 11/13/2024 10:40 AM EST Office Visit [facility] [address] [place] [phone] Srinivas Prasad MD UTI symptoms (Primary Dx); Recurrent UTI; UTI due to extended-spectrum beta lactamase (ESBL) producing Escherichia coli 11/13/[address] [address] Audrey Calvo MD Durable Medical Equipment 11/13/[address] [address] Audrey Calvo MD Nurse Triage 11/08/2024 Refill [facility] [address], [place] [phone] Audrey Calvo MD Achilles tendinitis of right lower extremity 10/30/[address] [phone] Audrey Calvo MD Appointment Request from Last 3 Months Immunizations Name Administration Dates Next Due Influenza High-dose Quadriva lent Preservative Free 07/29/2023 Influenza injectable quadriv alent IIV4 with preservative 07/05/2017,07/11/2015 Influenza injectable quadriv alent preservative free 08/02/2022,09/17/2021,07/24/2020,06/15,02/02/2019 Influenza, High Dose Seasona l, Preservative Free 07/16/2024 Influenza, IIV3, injectable 06/27/2014 Influenza, Split (incl. usraj fied surface antigen) 2015,05/25/2013,05/19/2012 Pfizer Covid-19 Vaccine 12+ Bivalent 08/02/2022 Pneumococcal Conjugate PCV 13 10/27/2021 Pneumococcal Polysaccharide PPSV23 04/01/2017, TD (adult), 2 Lf tetanus tox oid, preservative free, adsorbed 11/18/2022,01/23/2007 Tdap 05/25/2013 Zoster, Recombinant 12/23/2023 Zoster, live 05/25/2019 Social History Tobacco Use [...] Sign Reading Time Taken Comments Blood Pressure 152/76 01/11/2025 11:04 AM EDT Pulse 69 01/11/2025 11:04 AM EDT Temperature 36 ??C (96.8 ??F) 01/10/2025 9:16 AM EDT Respiratory Rate 18 01/10/2025 9:16 AM EDT Oxygen Saturation 98% 01/10/2025 9:52 AM EDT Inhaled Oxygen Concentration - - Weight 87.5 kg (192 lb 12.8 oz) 01/10/2025 9:16 AM EDT Height 162.6 cm (5' 4 ) 01/10/2025 9:16 AM EDT Body Mass Index 33.09 01/10/2025 9:16 AM EDT Plan of Treatment Upcoming Encounters Date Type Department Care Team (Late st Contact Info) Description 01/29/2025 1:00 PM EDT Medication Management [facility] [address] [place] [phone] 03/12/2025 11:00 AM EDT Office Visit [address] [phone] 04/05/2025 11:30 AM EDT Office Visit [address] [address] Audrey Calvo MD [address] [place] [phone] Health Maintenance Due Date Last Done Comments CT Colonography 1957 FIT DNA/Cologuard 1957 FIT 1957 FOBT 1955 Sigmoidoscopy 1955 Eye Exam 1967 Hepatitis C Screening 1975 RSV Patients and Patients Aged 60 years or older (1 - Risk 60-74 years 1-dose series) 2017 Diabetes: Urine Protein Screening 03/02/2022 03/02/2021, 08/08/2020 Zoster Vaccines (3 of 3) 02/17/2024 12/23/2023, 02/2019 COVID-19 Vaccine (4 - 2023- season) 2024 08/02/2022, 03/05/2021, 02/05/2021 Mammogram 01/16/2025 01/17/2024, 10/21, 11/09/2022, Additional history exists Dental Oral Exam 01/25/2025 07/27/2024, , 03/06/2019, Additional history exists Dental Prophylaxis 01/25/2025 07/27/2024, 01/31/2019 Diabetes: Hemoglobin A1C 03/27/2025 025, 02/14/2024, 10/20/2023, Additional history exists Lipid Panel 06/29/2025 06/29/2024, 12/19, 12/20/2022, Additional history exists Dental X-Ray: Bitewings 07/28/2025 07/27/20, 09/05/2019, 08/15/2018 Depression Screening 12/26/2025 12/26/2024, 12/27/19 Diabetes: Foot Exam 12/26/2025 12/26/2024, 12/26/2024, 12/26/2024, Additional history exists SDOH Screening 12/26/2025 12/26/2024 Tobacco Screening 12/26/2025 12/26/2024 Alcohol/Substance Use Screening 01/10/2026 01/10/2025 Pneumococcal Vaccine: 50+ Years (3 of 3 - PCV20 or PCV21) 10/27/2026 10/27/2021, 04/01/2017, 09/05/2002 Dental X-Ray: Full Mouth 07/28/2027 07/27/2024, 07/21 Colonoscopy 08/28/2029 08/28/2019 Colorectal Cancer Screening 08/28/2029 DTaP/Tdap/Td Vaccines (3 - Td or Tdap) 11/18/2032 11/18/2022, 05/25/2013, 01/23/2007 Influenza Vaccine Completed 07/16/2024, , 08/02/2022, Additional [...] Name Priority Date/Time Associated Diagnosis Comments POCT CHIQUITA-14 URINE DRUG SCREEN Routine 01/08/2025 11:33 AM EDT Other chronic pain assisted (current) use of opiate analgesic POCT GLYCATED HEMOGLOBIN, TOTAL Routine 12/26/2024 1:59 PM EDT Type 2 diabetes mellitus with hyperglycemia, without long-term current use of insulin ([facility]) POCT GLUCOSE Routine 12/26/2024 1:58 PM EDT Type 2 diabetes mellitus with hyperglycemia, without long-term current use of insulin ([facility]) CULTURE, URINE, ROUTINE Routine 11/13/2024 10:56 AM EST UTI symptoms POCT URINALYSIS DIPSTICK Routine 11/13/2024 10:51 AM EST UTI symptoms PROPHYLAXIS - ADULT Routine 07/27/2024 1 0:00 AM EST Dental plaque Dental calculus INTRAORAL - COMPLETE SERIES OF RADIOGRAPHIC IMAGES Routine 07/27/2024 10:00 AM EST PERIODIC ORAL EVALUATION - ESTABLISHED PATIENT Routine 07/27/2024 10:00 AM EST LIPID PANEL WITH REFLEX TO DIRECT LDL Routine 06/29/2024 8:54 AM EDT Primary hypertension BI MAMMOGRAM SCREENING TOMOSYNTHESIS BILATERAL Routine 01/17/2024 9:18 AM EDT Screening mammogram for breast cancer ZZZ HISTORICAL MICROALBUMIN, RANDOM Routine 03/02/2021 1:58 PM EDT HM COLONOSCOPY Routine 08/28/2019 8:20 AM EST from Last 3 Months or Most Recently Relevant to Health Maintenance Results * POCT CHIQUITA-14 Urine Drug Screen (01/08/2025 11:33 AM EDT) Oxycodone Screen, Urine Positive Urine Urine specimen obtained by clean catch procedure / Unknown 01/08/2025 11:33 AM EDT Narrative Lola Garcia RN - 01/08/2025 11:33 AM EDT .Lot# [id number] Exp: 07-19-26 Audrey Calvo MD POINT OF CARE TEST ENTER /EDIT ORDERABLES Final Result * (ABNORMAL) POCT HGB A1C (12/26/2024 1:59 PM EDT) Hemoglobin A1C 8.1(A) 4.0 - 6.0 % QC Media Lot # [id number] Lot# Expiration Date Blood 12/26/2024 1:59 PM EDT Audrey Calvo MD POINT OF CARE TEST ENTER /EDIT ORDERABLES Final Result * POCT Glucose (12/26/2024 1:58 PM EDT) Glucose Blood, POC 148 60 - 200 mg/dL QC Media Lot # [id number] Lot# Expiration Date Blood Capillary blood specimen / Unknown 12/26/2024 1:58 PM EDT Audrey Calvo MD POINT OF CARE TEST ENTER /EDIT ORDERABLES Final Result * Culture, Urine, Routine (11/13/2024 10:56 AM EST) Urine Urine specimen obtained by clean catch procedure / Unknown 11/13/2024 10:56 AM EST 11/13/2024 2:01 PM EST Comment:UACC Narrative [facility] - 11/15/2024 7:38 AM EST Escherichia coli ESBL Note: NOTE: Extended-Spectrum Beta-Lactamase enzyme present Quant > 100,000 cfu/mL Escherichia coli: Ampicillin >=32(R) Escherichia coli: Cefazolin (Urine) >=32(R) Escherichia coli: Cefepime 16(R) Escherichia coli: Ceftriaxone >=64(R) Escherichia coli: Ciprofloxacin >=4(R) Escherichia coli: Ertapenem <=0.12(S) Escherichia coli: Gentamicin <=1(S) Escherichia coli: Nitrofurantoin <=16(S) Escherichia coli: Trimethoprim/Sulfamethoxazole <=20(S) Specimen Source: Urine clean catch us Srinivas Prasad MD LAB MICROBIOLOGY - GENERAL ORDER ASMITA Final Result [facility] [address] [place] [phone] * (ABNORMAL) POCT urinalysis dipstick manually resulted [...] Detected Urine 11/13/2024 10:5 1 AM EST us Srinivas Prasad MD POINT OF CARE TEST ENTER/EDIT OR DERABLES Final Result * Lipid Panel with Reflex to Direct LDL (06/29/2024 8:54 AM EDT) Triglycerides 66 <150 mg/dL [facility] Comment:Desirable Triglyceri de: less than 150 mg/dLBorderline High Triglyceride 150-199 mg/dLHigh Triglyceride: 200-499 mg/dLVery High Triglyceride: greater than or equal to 5OO mg/dL Cholesterol 139 <200 mg/dL [facility] Comment:Desirable Cholestero l: less than 200 mg/dLBorderline High Cholesterol: 200-239 mg/dLHigh Cholesterol: greater than 239 mg/dL LDL Cholesterol Calculated 71 <100 mg/dL [facility] Comment:Desirable LDL: less than 100 mg/dLNear Optimal/Above Optimal LDL: 110- 129 mg/dLBorderline High LDL: 130-159 mg/dLHigh LDL: 160-189 mg/dLVery High LDL: greater than or equal to 190 mg/dL HDL Cholesterol 55 >40 mg/dL [facility] Comment:Desirable HDL: great er than 40 mg/dL Note: This HDL assay may give artificially low results in patients with liver disease. Blood 06/29/2024 8:54 AM EDT 06/29/2024 11:09 AM EDT us Audrey Calvo MD LAB BLOOD ORDERABLES Fin al Result [facility] [address] [place] [address] [phone] * BI Mammogram Screening Tomosynthesis Bilateral (01/17/2024 9:18 AM EDT) Anatomical Region Laterality Modality Breast Bilateral Mammography 01/17/2024 9:18 AM EDT Narrative 02/12/2024 7:16 AM EDT ? [facility] ? [address] ?[place] [address] ? Mammography Report ? Signed ? Patient: Ubiles,Kalyani I ?MR#: [id number] ?? 83 ? : 1955 ?Acct:[id number] ? Age/Sex: 68 / F ?ADM Date: 04/30/24 ? Loc: HO.MAMMO ? Attending Dr: Audrey Calvo MD ? Ordering Physician: Audrey Calvo MD ?Results: 1Ne ?? gative ? Date of Service: 01/17/24 ?Follow Up: 1 Year From Orig ?? inal Mammogram ? Procedure(s): MM tomosynthesis screening BI ?? Accession Number(s): [id number] ? cc: Audrey Calvo MD ? EXAMINATION: [...] by Vianey George MD in OV> ? 05// 0711 ? DD/ 0918 ? TD/TT: ? Wax Cutter: ? Procedure Note Donotuseinterpreter, Image - 02/12/2024 [facility] [address] [place] [address] Mammography Report Signed Patient: Kalyani Rogers IMR#: [id number] : 7Acct:[id number] Age/Sex: 68 / FADM Date: 01/17/24 Loc: HO.MAMMO Attending Dr: Audrey Calvo MD Ordering Physician: Audrey Clavo MDResults: 1Ne gative Date of Service: 01/17/24Follow Up: 1 Year From Orig ina Mammogram Procedure(s): MM tomosynthesis screening BI Accession Number(s): [id number] cc: Audrey Calvo MD EXAMINATION: MM SCREENING [...] by Vianey George MD in OV> 02/12/24 07 DD/ 0918 TD/TT: Wax Cutter: Audrey Calvo MD IMG BI PROCEDURES Final Result * MICROALBUMIN, RANDOM (03/02/2021 1:58 PM EDT) Creatinine Urine 30.13 mg/dL [facility] Microalbum/Creati nine Ratio Ur 43.1 ug/mg cr [facility] Comment: ?Albumin/Creatinine Ratio Reference Ranges: ? Normal: < 30 ug/mg creatinine ? Microalbuminuria: ??30 - 300 ug/mg creatinine Clinical Albuminuria: ??> 300 ug/mg creatinine Microalbumin Urine 13.0 mg/L [facility] 03/02/2021 1:58 PM EDT Historical Provider HISTORICAL/NON ORDERABLE LABS Final Result [facility] [address] * Colonoscopy (08/28/2019 8:20 AM EST) Historical Provider HEALTH MAINTENANCE Final Result from Last 3 Months or Most Recently Relevant to Health Maintenance Insurance [facility] OPTIONS (O D-SNP) [address] [place] [id number] Care Teams Architectural Drafting Instructor Relationship Specialty Start Date End Date Audrey Calvo MD [address] [place] [address] PCP - General Family Medicine 05/09/17
--- OUTSIDE RECORDS SUMMARY | 2025-01-22 09:27 | XMS_ITS | Encounter Summary ---
Author Organization [employer] Address [address] [place] [address] 7t [place] [address] Care Team Providers Care Foot Cutter Name Role Phone Audrey Calvo MD Primary Care Provider + Reason for Visit * Reason Comments Med Refill Encounter Details Date Type Department Care Team ([facility] st Contact Info) Description 01/09/2025 Refill [facility] [address] [place] [address] Audrey Calvo MD [address] [place] [address] Achilles tendinitis of right lower extremity Social [...] Description 01/29/2025 1:00 PM EDT Medication Management [address] [address] 03/12/2025 11:00 AM EDT Office Visit [address] [address] 04/05/2025 11:30 AM EDT Office Visit [address] [address] Audrey Calvo MD [address] [place] [address] documented as of this encounter Visit Diagnoses Diagnosis Achilles tendinitis of right lower extremity documented in this encounter Additional Health Concerns Assessment Noted Time PHQ-9 Depression Total Score: 0 12/27/19 25 1:57 PM EDT documented as of this encounter Care Teams Foot Cutter Relationship Specialty Start Date End Date Audrey Calvo MD [address] [place] [address] PCP - General Family Medicine 05/09/17 documented as of this encounter
--- OUTSIDE RECORDS SUMMARY | 2025-01-22 09:27 | XMS_ITS | Encounter Summary ---
Author Organization [employer] Address [address] [place] [address] [facility] [place] [address] Care Team Providers Care Clipping Marker Name Role Phone Audrey Calvo MD Primary Care Provider + Reason for Visit * Reason Comments Med Refill Encounter Details Date Type Department Care Team ([facility] st Contact Info) Description 09/20/2024 Refill [facility] [address] [place], [place] [phone] Audrey Calvo MD 230 [place], [place] [phone] Chronic rhinitis Social History Tobacco Use Types [...] Description 01/29/2025 1:00 PM EDT Medication Management [facility] [address] [place] [address] 03/12/2025 11:00 AM EDT Office Visit [facility] [address] [place] [address] 04/05/2025 11:30 AM EDT Office Visit [address] [address] Audrey Calvo MD [address] [place] [address] documented as of this encounter Visit Diagnoses Diagnosis Chronic rhinitis documented in this encounter Additional Health Concerns Assessment Noted Time PHQ-9 Depression Total Score: 3 02/14/20 24 1:55 PM EDT documented as of this encounter Care Teams Clipping Marker Relationship Specialty Start Date End Date Audrey Calvo MD [address] [place] [address] PCP - General Family Medicine 05/09/17 documented as of this encounter
--- OUTSIDE RECORDS SUMMARY | 2025-01-22 09:27 | XMS_ITS | Encounter Summary ---
Author Organization [employer] Address [address] [place] [address] 7t [place] [address] Care Team Providers Care Business Support Administrator Name Role Phone Audrey Calvo MD Primary Care Provider + Encounter Details Date Type Department Care Team (Late st Contact Info) Description 11/22/2022 Orders Only [facility] [address] [place] [address] Emi Gill LPN Social History Tobacco Use [...] Description 01/29/2025 1:00 PM EDT Medication Management [facility] [place] [address] 03/12/2025 11:00 AM EDT Office Visit [facility] [place] [address] 04/05/2025 11:30 AM EDT Office Visit [facility] [place] [address] [place] [address] documented as of this encounter Procedures Procedure Name Priority Date/Time Associated Diagnosis Comments BD DEXA AXIAL Routine 12/07/2022 11:21 AM EDT documented in this encounter Results * BD DEXA Axial (12/07/2022 11:21 AM EDT) Anatomical Region Laterality Modality Body Radiographic Farheen ging 12/07/2022 11:2 1 AM EDT Narrative 12/08/2022 7:44 AM EDT ? [facility] [place] ? [address] ?[place] [id number] ? Mammography Report ? Signed ? Patient: Sue,Kalyani I ?MR#: [id number] ?? 83 ? : 1955 ?Acct:[id number] ? Age/Sex: 67 / F ?ADM Date: 03/21/23 ? Loc: HO.MAMMO ? Attending Dr: Audrey Calvo MD ? Ordering Physician: Audrey Calvo MD ?Results: ? Date of Service: 12/07/22 ?Follow Up: ? Procedure(s): XR DEXA axial skeleton ?? Accession Number(s): [id number] ? cc: Audrey Calvo MD ? EXAMINATION: ?? BONE DENSITOMETRY ? CLINICAL INDICATION: ?? Screening. ? COMPARISON: ?? Previous BD dated 10/14/2017 and baseline BD dated 11/13/2013. ? TECHNIQUE: Using a [employer]rapster DXA System (software version: ?? 13.1) manufactured by [employer], dual-energy x-ray absorptiometry ?? was performed of [...] MD in OV> ?12/08/22 0741 ? DD/ 20 ? TD/TT: ? Processing Talc And Borate Supervisor: PATTERSON ? Procedure Note Donotuseinterpreter, Image - 12/08/2022 [facility] [address] [place] [address] Dr. Miranda, LAMINE [address] Mammography Report Signed Patient: Kalyani Rogers [facility]#: [id number] 83 : 7Acct:[id number] Age/Sex: 67 / FADM Date: 12/07/22 Loc: HO.MAMMO Attending Dr: Audrey Calvo MD Ordering Physician: Audrey Calvo MDResults: Date of Service: 12/07/22Follow Up: Procedure(s): XR DEXA axial skeleton Accession Number(s): [id number] cc: Audrey Calvo MD EXAMINATION: BONE DENSITOMETRY CLINICAL INDICATION: Screening. COMPARISON: Previous BD dated 10/14/2017 and baseline BD dated 11/13/2013. TECHNIQUE: Using a Trapster DXA System (software version: 13.1) manufactured by [employer], dual-energy x-ray absorptiometry was performed of the [...] in OV> 12/08/22 0741 DD/ 1121 TD/TT: Processing Talc And Borate Supervisor: PATTERSON [facility] External Provider IMG DXA PROCEDURES Final Result documented in this encounter Visit Diagnoses Not on filedocumented in this encounter Care Teams Business Support Administrator Relationship Specialty Start Date End Date Audrey Calvo MD [address] [place] [address] PCP - General Family Medicine 05/09/17 documented as of this encounter
--- OUTSIDE RECORDS SUMMARY | 2025-01-22 09:27 | XMS_ITS | Encounter Summary ---
Author Organization [employer] Address [address] [place] [address] [place] [address] Care Team Providers Care Spanish Interpreter/Translator Name Role Phone Audrey Calvo MD Primary Care Provider + Reason for Referral * Consultation (Routine) - Canceled Specialty Diagnoses / Procedures Referred By Contgalen t Referred To Contact Pharmacy Diagnoses Primary hypertension Audrey Calvo MD [address] [place] [address] Phone: tel: fax: Referral ID Status Reason Start Date Expiration Date V isits Requested Visits Authorized [id number] Canceled Continuity of Care 01/10/2025 01/10/2026 6 6 Encounter Details Date Type Department Care Team (Late st Contact Info) Description 01/09/2025 Orders Only [facility] [address] [place] [address] [phone] Audrey Calvo MD [address] [place], [place] [phone] Primary hypertension (Primary Dx) Social History Tobacco Use Types Packs/Day Years [...] Description 01/29/2025 1:00 PM EDT Medication Management [facility] [address] [place] [address] 03/12/2025 11:00 AM EDT Office Visit [facility] [address] [place] [address] 04/05/2025 11:30 AM EDT Office Visit [address] [address] Audrey Calvo MD [address] [place] [address] Scheduled Referrals Name Type Priority Associated Diagnoses Orde r Schedule Referral to Pharmacy MTM Outpatient Referral Routine Primary hypertension Ordered: 01/10/2025 documented as of this encounter Visit Diagnoses Diagnosis Primary hypertension- Primary Unspecified essential hypertension documented in this encounter Additional Health Concerns Assessment Noted Time PHQ-9 Depression Total Score: 0 12/27/19 25 1:57 PM EDT documented as of this encounter Care Teams Spanish Interpreter/Translator Relationship Specialty Start Date End Date Audrey Calvo MD [address] [place] [address] PCP - General Family Medicine 05/09/17 documented as of this encounter
--- OUTSIDE RECORDS SUMMARY | 2025-01-22 09:27 | XMS_ITS | Encounter Summary ---
Author Organization [employer] Address [address] [place] [address] Care Team Providers Care Hand Twister Name Role Phone Audrey Calvo MD Primary Care Provider + Reason for Visit * Reason Comments Med Refill Encounter Details Date Type Department Care Team ([facility] Contact Info) Description 03/31/2023 Refill [facility] [address] [place] [address] [phone] Audrey Calvo MD [address] [place] [address] HTN (hypertension), benign Social History Tobacco Use [...] Upcoming Encounters Date Type Department Care Team ([facility] Contact Info) Description 01/29/2025 1:00 PM EDT Medication Management [facility] [address] [place] [address] [phone] 03/12/2025 11:00 AM EDT Office Visit [facility] [address] [place] [address] 04/05/2025 11:30 AM EDT Office Visit [facility] [address] [place] [address] Audrey Calvo MD [address] [place] [address] documented as of this encounter Visit Diagnoses Diagnosis HTN (hypertension), benign Essential hypertension, benign documented in this encounter Additional Health Concerns Assessment Noted Time PHQ-9 Depression Total Score: 0 12/23/19 23 9:08 AM EDT documented as of this encounter Care Teams Hand Twister Relationship Specialty Start Date End Date Audrey Calvo MD [address] [place] [address] PCP - General Family Medicine 05/09/17 documented as of this encounter
--- OUTSIDE RECORDS SUMMARY | 2025-01-22 09:27 | XMS_ITS | Encounter Summary ---
Author Organization [employer] Address [address] [place] [address] 7[place], [place] [address] Care Team Providers Care Clinical Services Assistant Name Role Phone Audrey Calvo MD Primary Care Provider + Encounter Details Date Type Department Care Team (Late st Contact Info) Description 09/27/2022 Orders Only [facility] [address] [place], [place] [phone] Emi Gill LPN Social History Tobacco Use [...] Department Care Team (Late Contact Info) Description 01/29/2025 1:00 PM EDT Medication Management [facility] [address] [place] [address] 03/12/2025 11:00 AM EDT Office Visit [address] [phone] 04/05/2025 11:30 AM EDT Office Visit [facility] [address] [place] [address] [phone] Audrey Calvo MD [address] [place] [address] documented as of this encounter Visit Diagnoses Not on filedocumented in this encounter Care Teams Clinical Services Assistant Relationship Specialty Start Date End Date Audrey Calvo MD [address] [place] [address] PCP - General Family Medicine 05/09/17 documented as of this encounter
--- OUTSIDE RECORDS SUMMARY | 2025-01-22 09:27 | XMS_ITS | Encounter Summary ---
Author Organization [employer] Address [address] [facility] 7t [place] [address] Care Team Providers Care System Administration Manager Name Role Phone Audrey Calvo MD Primary Care Provider + Encounter Details Date Type Department Care Team ([facility] Contact Info) Description 09/06/2024 Telephone [facility] [address] [place], [place] [phone] Audrey Calvo MD 230 [place] [address] Social History Tobacco Use Types Packs/Day Years [...] Description 01/29/2025 1:00 PM EDT Medication Management [facility] [address] [place] [address] 03/12/2025 11:00 AM EDT Office Visit [facility] [address] [place] [address] 04/05/2025 11:30 AM EDT Office Visit [address] [address] Audrey Calvo MD [address] [place] [address] documented as of this encounter Visit Diagnoses Not on filedocumented in this encounter Additional Health Concerns Assessment Noted Time PHQ-9 Depression Total Score: 3 02/14/20 24 1:55 PM EDT documented as of this encounter Care Teams System Administration Manager Relationship Specialty Start Date End Date Audrey Calvo MD [address] [place] [address] PCP - General Family Medicine 05/09/17 documented as of this encounter
--- OUTSIDE RECORDS SUMMARY | 2025-01-22 09:27 | XMS_ITS | Encounter Summary ---
Author Organization [employer] Address [address] [facility] 7t [place] [address] Care Team Providers Care Slot Machine Floor Person Name Role Phone Audrey Calvo MD Primary Care Provider + Encounter Details Date Type Department Care Team (Late st Contact Info) Description 02/15/2024 Orders Only [facility] [address] [place], [place] [phone] Provider, MD [place] Social History Tobacco Use [...] Description 01/29/2025 1:00 PM EDT Medication Management [address] [address] 03/12/2025 11:00 AM EDT Office Visit [address] [address] 04/05/2025 11:30 AM EDT Office Visit [address] [address] Audrey Calvo MD [address] [place] [address] documented as of this encounter Procedures Procedure [...] documented as of this encounter Care Teams Slot Machine Floor Person Relationship Specialty Start Date End Date Audrey Calvo MD [address] [place] [address] PCP - General Family Medicine 05/09/17 documented as of this encounter
== END 2025-01-22 08:53 | disposition home or self-care (01) ==
LOC: HO.MAMMO 08:52
PROVIDERS: PCP Internal Medicine Geriatric Medicine; Visit Provider Internal Medicine
DX: Z12.31 Encounter for screening mammogram for malignant neoplasm of breast (principal)
CPT/HCPCS: 77063; 77067

== ENCOUNTER → 2025-01-22 09:15 | Outpatient (BNV) | payer OTHER, SELFPAY | PROVIDERS: PCP Internal Medicine Geriatric Medicine; Visit Provider Internal Medicine | DX: Z12.31 Encounter for screening mammogram for malignant neoplasm of breast (principal) | CPT/HCPCS: 77063; 77067 ==

== ENCOUNTER 2025-01-29 08:33 | Outpatient (REF) | payer OTHER, SELFPAY ==
--- OUTSIDE RECORDS SUMMARY | 2025-01-29 08:50 | XMS_ITS | Encounter Summary ---
Author Organization [employer] Address [address] [place] [address] 7t [place] [address] Care Team Providers Care Chief Investment Officer Name Role Phone Audrey Calvo MD Primary Care Provider + Reason for Visit * Reason Comments Med Refill Encounter Details Date Type Department Care Team ([facility] st Contact Info) Description 09/20/2024 Refill [facility] 230 [place], [place] [phone] Audrey Calvo MD 230 [place] [address] Chronic rhinitis Social History Tobacco Use Types [...] Contact Info) Description 01/29/2025 1:00 PM EDT Telemedicine [facility] [address] [place] [address] 03/12/2025 11:00 AM EDT Office Visit [facility] [address] [place] [address] 04/05/2025 11:30 AM EDT Office Visit [facility] [address] [place] [address] Audrey Calvo MD [address] [place] [address] 05/16/2025 11:00 AM EDT Office Visit [facility] [address] [place] [address] Liya Perez documented as of this encounter Visit Diagnoses Diagnosis Chronic rhinitis documented in this encounter Additional Health Concerns Assessment Noted Time PHQ-9 Depression Total Score: 3 02/14/20 24 1:55 PM EDT documented as of this encounter Care Teams Chief Investment Officer Relationship Specialty Start Date End Date Audrey Calvo MD [address] [place] [address] PCP - General Family Medicine 05/09/17 documented as of this encounter
--- OUTSIDE RECORDS SUMMARY | 2025-01-29 08:50 | XMS_ITS | Encounter Summary ---
Author Organization [employer] Address [address] [place] [address] 7t [place] [address] Care Team Providers Care Metal Sander And Finisher Name Role Phone Audrey Calvo MD Primary Care Provider + Reason for Visit * Reason Comments Med Refill Encounter Details Date Type Department Care Team ([facility] st Contact Info) Description 01/02/2025 Refill [facility] 230 [place] [address] Audrey Calvo MD 230 [place] [address] Social History Tobacco Use Types Packs/Day Years [...] Info) Description 01/29/2025 1:00 PM EDT Telemedicine [facility] [address] [place] [address] 03/12/2025 11:00 AM EDT Office Visit [facility] [address] [place] [address] 04/05/2025 11:30 AM EDT Office Visit [facility] [address] [place] [address] Audrey Calvo MD [address] [place] [address] 05/16/2025 11:00 AM EDT Office Visit [facility] [address] [place] [address] Liya Perez documented as of this encounter Visit Diagnoses Not on filedocumented in this encounter Additional Health Concerns Assessment Noted Time PHQ-9 Depression Total Score: 0 12/27/19 25 1:57 PM EDT documented as of this encounter Care Teams Metal Sander And Finisher Relationship Specialty Start Date End Date Audrey Calvo MD 230 [place] [address] PCP - General Family Medicine 05/09/17 documented as of this encounter
--- OUTSIDE RECORDS SUMMARY | 2025-01-29 08:50 | XMS_ITS | Encounter Summary ---
Author Organization [employer] Address [address] [facility] 7t [place] [address] Care Team Providers Care Cream Dipper Name Role Phone Audrey Calvo MD Primary Care Provider + Reason for Visit * Reason Comments Med Refill Encounter Details Date Type Department Care Team ([facility] st Contact Info) Description 08/18/2023 Refill [facility] 230 [place] [address] Audrey Calvo MD 230 [place] [address] Social History Tobacco Use Types Packs/Day Years [...] Info) Description 01/29/2025 1:00 PM EDT Telemedicine [facility] [address] [place] [address] 03/12/2025 11:00 AM EDT Office Visit [address] [address] 04/05/2025 11:30 AM EDT Office Visit [facility] [address] [place] [address] Audrey Calvo MD [address] [place] [address] 05/16/2025 11:00 AM EDT Office Visit [facility] AD[facility] D[facility] [address] [place] [address] Liya Perez documented as of this encounter Visit Diagnoses Not on filedocumented in this encounter Additional Health Concerns Assessment Noted Time PHQ-9 Depression Total Score: 0 12/23/19 23 9:08 AM EDT documented as of this encounter Care Teams Cream Dipper Relationship Specialty Start Date End Date Audrey Calvo MD [address] [place] [address] PCP - General Family Medicine 05/09/17 documented as of this encounter
--- OUTSIDE RECORDS SUMMARY | 2025-01-29 08:50 | XMS_ITS | Encounter Summary ---
Author Organization [employer] Address [address] [facility] 7t [place] [address] Care Team Providers Care Photographic Hand Developer Name Role Phone Audrey Calvo MD Primary Care Provider + Encounter Details Date Type Department Care Team ([facility] st Contact Info) Description 06/29/2023 Orders Only [facility] [address] [place], [place] [phone] Emi Gill LPN Social History Tobacco Use [...] Info) Description 01/29/2025 1:00 PM EDT Telemedicine [facility] [address] [place] [address] 03/12/2025 11:00 AM EDT Office Visit [facility] [address] [place] [address] 04/05/2025 11:30 AM EDT Office Visit [address] [address] Audrey Calvo MD 230 [place] [address] 05/16/2025 11:00 AM EDT Office Visit [facility] [address] [place] [address] Liya Perez documented as of this encounter Visit Diagnoses Not on filedocumented in this encounter Additional Health Concerns Assessment Noted Time PHQ-9 Depression Total Score: 0 12/23/19 23 9:08 AM EDT documented as of this encounter Care Teams Photographic Hand Developer Relationship Specialty Start Date End Date Audrey Calvo MD [address] [place] [address] PCP - General Family Medicine 05/09/17 documented as of this encounter
--- OUTSIDE RECORDS SUMMARY | 2025-01-29 08:50 | XMS_ITS | Encounter Summary ---
Author Organization [employer] Address [address] [place] [address] 7[place], [place] [address] Care Team Providers Care Picc Nurse Name Role Phone Audrey Calvo MD Primary Care Provider + Encounter Details Date Type Department Care Team (Late st Contact Info) Description 09/27/2022 Orders Only [facility] [address] [place] [address] Emi Gill LPN Social History Tobacco Use [...] Info) Description 01/29/2025 1:00 PM EDT Telemedicine [facility] [address] [place] [address] 03/12/2025 11:00 AM EDT Office Visit [address] [address] 04/05/2025 11:30 AM EDT Office Visit [address] [address] Audrye Calvo MD [address] [place] [address] 05/16/2025 11:00 AM EDT Office Visit [facility] 230 [place] [address] Liya Perez documented as of this encounter Visit Diagnoses Not on filedocumented in this encounter Care Teams Picc Nurse Relationship Specialty Start Date End Date Audrey Calvo MD 230 [place] [address] PCP - General Family Medicine 05/09/17 documented as of this encounter
--- OUTSIDE RECORDS SUMMARY | 2025-01-29 08:50 | XMS_ITS | Encounter Summary ---
Author Organization [employer] Address [address] [facility] 7t [place] [address] Care Team Providers Care Warrant Server Name Role Phone Audrey Calvo MD Primary Care Provider + Reason for Visit * Reason Comments Med Refill Encounter Details Date Type Department Care Team ([facility] st Contact Info) Description 07/06/2023 Refill [facility] [address] [place], [place] [phone] Audrey Calvo MD [address] [place] [address] Lumbago with sciatica, unspecified side Social History [...] Info) Description 01/29/2025 1:00 PM EDT Telemedicine [facility] MEDICINE [address] [place] [address] 03/12/2025 11:00 AM EDT Office Visit [facility] [address] [place] [address] 04/05/2025 11:30 AM EDT Office Visit [facility] MED[facility]INE [address] [place] [address] Audrey Calvo MD [address] [place] [address] 05/16/2025 11:00 AM EDT Office Visit [facility] ADULT DENTAL [address] [place] [address] Liya Perez documented as of this encounter Visit Diagnoses Diagnosis Lumbago with sciatica, unspecified side documented in this encounter Additional Health Concerns Assessment Noted Time PHQ-9 Depression Total Score: 0 12/23/19 23 9:08 AM EDT documented as of this encounter Care Teams Warrant Server Relationship Specialty Start Date End Date Audrey Calvo MD [address] [place] [address] PCP - General Family Medicine 05/09/17 documented as of this encounter
--- OUTSIDE RECORDS SUMMARY | 2025-01-29 08:50 | XMS_ITS | Data Portability ---
Author Organization [employer] Address [address] [place] [phone] Care Team Providers Care Shipping Room Supervisor Name Role Phone HIM CCA OTHER Assessment Encounter Date Assessment Date Assessment LastModified by Organization Details LastModified Time 01/15/2025 01/15/2025 Evaluation in the field was performed by my gasoline engine assembler colleague, as noted above, I provided real-time [...] Lab glucose , fingers tick, blood 025 04/29/20 25 [facility] - [facility], [address] [place] [address], [phone] 15:13:07 Referral None recorde d. Procedures None [...] Name and Address Organization Details Recorded Time 40491 aspirin medicatio n Not available Not available Not available 01/15/2025 1191 RxNorm Not Available [facility] - production 11:35:23 Medications Name Sig Start Date Stop [...] Available Pentips Pen Needle 32 gauge x 32 USE ONCE DAILY DIRECTED active Not Available [...] Not Available Not Available No t Available [employer] Marcos 2 Sensor kit TEST BLOOD SUGAR [...] Details Last Updated DateTime 5 18 /min 29783.1 52 g 73 /min 98.6 [degF] 97 % 97 % 160.02 cm 118 mm[Hg] 62 mm[Hg] Not Available [facility] - production 13:38:24 Social History None recorded. Functional Status None recorded. Mental Status None recorded. Family History Nothing Reported. Medical History No medical history recorded. Gynecological HistoryNo gynecological history recorded. Obstetrics History GPAL:G 0 P 0 0 0 0 Past Encounters Encounter ID Performer Location Encounter Start Date Encounter Closed Date Diagnosis/Indication Diagnosis SNOMED-CT Code Diagnosis ICD10 Code Diagnosis Note [id number] Ginger Steele MD Main - [facility] [address] [place] [address] 01/15/2025 13:19:27 01/15/2025 15:05:54 Hyperglycemia 44374850 R73.9 Health Concerns Section Related Observation LastModified by Organization Detai ls LastModified Time None Recorded Concern Status LastModified by Organization Details LastModified Time None Recorded Advance Directives Directive None Recorded Payers Insurance Date Sequence Insurance Name Policy Number Policy Magana Covered Member ID Magana Member ID Guarantor Name 01/15/2025 1 [facility] - DOS ON OR AFTER 2022 - DUAL ELIGIBLE - SNF OPTIONS AND ONE CARE (MEDICARE REPLACEMENT/AD VANTAGE - HMO) Kalyani Ling [id number] Kalyani Ling Notes Date Note Type Note Provider Name and Address Organization Details Recorded Time 01/15/2025 text/html HPI: No interpreter for the deaf needed as this contract writer speaks Surinamese. Call returned to Kalyani Rogers to triage [...] Tuesday. Pt states unable to come into [facility] or return to Urology office today. [...] ...................... ...................... ...................... ...................... ...................... ...................... ......... Director Of Training Note From Yadi Ness: Sent to a call for a pt complaining of high blood sugar and possible UTI. SC8 arrives on scene, pt is alert and oriented, airway is patent. Pt's primary language is Surinamese. Pt's family serves as interpreter for the deaf. Pt has history of DM2 and frequent [...] sugar and contacted clinic today, who [facility]. Pt denies hartman, cp, sob, cough, runny nose, vomiting, diarrhea, hematuria, fever, or loc. BP:118/62, P:73, RR:18, SpO2:97%RA, T:98.6, B; Head: unremarkable; Lung sounds: clear bilaterally; Abdomen: soft, non-tender, no distention; Back: unremarkable; Extremities: unremarkable; Urine sample obtained; urine dip results: uploaded to [facility]. [facility] consulted and pt is advised to have labs drawn/obtained tomorrow, and follow up with PCP. Pt is reassured BG is not in an urgent/unsafe range. Pt advised urine dip: neg; Red flags discussed. Pt has no further questions. [facility] Lab Orders: glucose, fingerstick, blood: Performed ...................... ...................... ...................... ...................... ...................... ...................... ......... [facility] Consulted: Ginger Steele ...................... ...................... ...................... ...................... ...................... ...................... ......... Disposition: Fulfilled Ginger Steele MD [address] [place] [address],[address], [place], [phone], [employer] 01/15/2025 14:53:12 OBGyn Episode No OBEpisode recorded.
--- OUTSIDE RECORDS SUMMARY | 2025-01-29 08:50 | XMS_ITS | Encounter Summary ---
Author Organization [employer] Address [address] [facility] 7t [place] [address] Care Team Providers Care Header Machine Operator Name Role Phone Audrey Calvo MD Primary Care Provider + Encounter Details Date Type Department Care Team ([facility] st Contact Info) Description 12/02/2023 Telephone [facility] MEDICINE [address] [place], [place] [phone] Audrey Calvo MD [address] [place] [address] Social History Tobacco Use Types Packs/Day Years [...] Info) Description 01/29/2025 1:00 PM EDT Telemedicine [facility] MEDICINE [address] [place] [address] 03/12/2025 11:00 AM EDT Office Visit [facility] MED[facility]INE [address] [place] [address] 04/05/2025 11:30 AM EDT Office Visit [facility] MEDICINE [address] [place] [address] Audrey Calvo MD [address] [place] [address] 05/16/2025 11:00 AM EDT Office Visit [facility] ADULT DENTAL [address] [place] [address] Liya Perez documented as of this encounter Visit Diagnoses Not on filedocumented in this encounter Additional Health Concerns Assessment Noted Time PHQ-9 Depression Total Score: 0 12/23/19 23 9:08 AM EDT documented as of this encounter Care Teams Header Machine Operator Relationship Specialty Start Date End Date Audrey Calvo MD [address] [place] [address] PCP - General Family Medicine 05/09/17 documented as of this encounter
--- OUTSIDE RECORDS SUMMARY | 2025-01-29 08:50 | XMS_ITS | Encounter Summary ---
Author Organization [employer] Address [address] [place] [address] 7 [place] [address] Care Team Providers Care Top Collar Baster Name Role Phone Audrey Calvo MD Primary Care Provider + Encounter Details Date Type Department Care Team (Late st Contact Info) Description 10/26/2022 Orders Only [facility] MEDICINE [address] [place] [phone] Nila Gallardo LPN Social History Tobacco Use [...] Info) Description 01/29/2025 1:00 PM EDT Telemedicine [facility] MEDICINE [address] [place] [address] 03/12/2025 11:00 AM EDT Office Visit [address] [address] 04/05/2025 11:30 AM EDT Office Visit [address] [address] Audrey Calvo MD [address] [place] [address] 05/16/2025 11:00 AM EDT Office Visit [facility] ADULT DENTAL [address] [place] [address] Liya Perez documented as of this encounter Procedures Procedure Name Priority Date/Time Associated Diagnosis Comments BI MAMMOGRAM SCREENING TOMOSYNTHESIS BILATERAL Routine 11/09/2022 8:12 AM EST documented in this encounter Results * BI Mammogram Screening Tomosynthesis Bilateral (11/09/2022 8:12 AM EST) Anatomical Region Laterality Modality Breast Bilateral Mammography 11/09/2022 8:12 AM EST Narrative 11/10/2022 8:58 AM EST ? [facility] ? [address] ?[place]AM[place] Miranda [id number] ? Mammography Report ? Signed ? Patient: Sue,Kalyani I ?MR#: [id number] ?? 83 ? : 1955 ?Acct:[id number] ? Age/Sex: 67 / F ?ADM Date: 11/09/ ? Loc: HO.MAMMO ? Attending Dr: Audrey Calvo MD ? Ordering Physician: Audrey Calvo MD ?Results: 1Ne ?? gative ? Date of Service: 11/09/ ?Follow Up: 1 Year From Orig ?? inal Mammogram ? Procedure(s): MM tomosynthesis screening BI ?? Accession Number(s): [id number] ? cc: Audrey Calvo MD ? EXAMINATION: [...] by Chandra Moseley MD in OV> ?11/10/22 0855 ? DD/ 08 ? TD/TT: ? Elevator Constructor Supervisor: SK ? Procedure Note Ismael, Image - 11/10/2022 [facility] [address] [place] [address] Dr. Miranda, LAMINE [id number] Mammography Report Signed Patient: Kalyani Rogers [facility]#: [id number] : 7Acct:[id number] Age/Sex: 67 / FADM Date: 11/09/22 Loc: NESTOR Attending Dr: Audrey Calvo MD Ordering Physician: Audrey Calvo MDResults: 1Ne gative Date of Service: 11/09/22Follow Up: 1 Year From Orig ina Mammogram Procedure(s): MM tomosynthesis screening BI Accession Number(s): [id number] cc: Audrey Calvo MD EXAMINATION: MM SCREENING [...] Moseley MD in OV> 11/10/22 0855 DD/ 08 TD/TT: Elevator Constructor Supervisor: SK [facility] External Provider IMG BI PROCEDURES Edited Result - Final documented in this encounter Visit Diagnoses Not on filedocumented in this encounter Care Teams Top Collar Baster Relationship Specialty Start Date End Date Audrey Calvo MD [address] [place] [address] PCP - General Family Medicine 05/09/17 documented as of this encounter
--- OUTSIDE RECORDS SUMMARY | 2025-01-29 08:50 | XMS_ITS | Encounter Summary ---
Author Organization [employer] Address [address] [facility] 7t [place] [address] Care Team Providers Care Grain Packer Name Role Phone Audrey Calvo MD Primary Care Provider + Encounter Details Date Type Department Care Team (Late st Contact Info) Description 10/19/2023 Orders Only [facility]EDS [address] [place], [place] [phone] Nila Gallardo LPN Social History Tobacco Use [...] Info) Description 01/29/2025 1:00 PM EDT Telemedicine [facility] MEDICINE [address] [place] [address] 03/12/2025 11:00 AM EDT Office Visit [facility] MEDICINE [address] [place] [address] 04/05/2025 11:30 AM EDT Office Visit [address] [address] Audrey Calvo MD [address] [place] [address] 05/16/2025 11:00 AM EDT Office Visit [facility] ADULT DENTAL [address] [place] [address] Liya Perez documented as of this encounter Visit Diagnoses Not on filedocumented in this encounter Additional Health Concerns Assessment Noted Time PHQ-9 Depression Total Score: 0 12/23/19 23 9:08 AM EDT documented as of this encounter Care Teams Grain Packer Relationship Specialty Start Date End Date Audrey Calvo MD [address] [place] [address] PCP - General Family Medicine 05/09/17 documented as of this encounter
--- OUTSIDE RECORDS SUMMARY | 2025-01-29 08:50 | XMS_ITS | Encounter Summary ---
Author Organization [employer] Address [address] [place] [address] [address] Care Team Providers Care Exerciser Name Role Phone Audrey Calvo MD Primary Care Provider + Encounter Details Date Type Department Care Team (Late st Contact Info) Description 10/07/2022 Orders Only [facility] MEDICINE [address] [place] [phone] Nila Gallardo LPN Social History Tobacco Use [...] Info) Description 01/29/2025 1:00 PM EDT Telemedicine [facility] MEDICINE [address] [place] [address] 03/12/2025 11:00 AM EDT Office Visit [facility] MED[facility]INE [address] [place] [address] 04/05/2025 11:30 AM EDT Office Visit [facility] MED[facility]INE [address] [place] [address] Audrey Calvo MD [address] [place] [address] 05/16/2025 11:00 AM EDT Office Visit [facility] ADULT DENTAL [address] [place] [address] Liya Perez documented as of this encounter Visit Diagnoses Not on filedocumented in this encounter Care Teams Exerciser Relationship Specialty Start Date End Date Audrey Calvo MD [address] [place] [address] PCP - General Family Medicine 05/09/17 documented as of this encounter
--- OUTSIDE RECORDS SUMMARY | 2025-01-29 08:50 | XMS_ITS | Encounter Summary ---
Author Organization [employer] Address [address] [facility] 7t [place] [address] Care Team Providers Care Surgical Aide Name Role Phone Audrey Calvo MD Primary Care Provider + Encounter Details Date Type Department Care Team ([facility] st Contact Info) Description 07/02/2024 Orders Only [facility] MEDICINE [address] [place], [place] [phone] Cassia Juarez MD [address] [place], [place] [phone] Social History Tobacco Use Types Packs/Day Years [...] Info) Description 01/29/2025 1:00 PM EDT Telemedicine [facility] MEDICINE [address] [place] [address] 03/12/2025 11:00 AM EDT Office Visit [facility] MED[facility]INE [address] [place] [address] 04/05/2025 11:30 AM EDT Office Visit [facility] MEDICINE [address] [place] [address] Audrey Calvo MD [address] [place] [address] 05/16/2025 11:00 AM EDT Office Visit [facility] ADULT DENTAL [address] [place] [address] Liya Perez documented as of this encounter Visit Diagnoses Not on filedocumented in this encounter Additional Health Concerns Assessment Noted Time PHQ-9 Depression Total Score: 3 02/14/20 24 1:55 PM EDT documented as of this encounter Care Teams Surgical Aide Relationship Specialty Start Date End Date Audrey Calvo MD [address] [place] [address] PCP - General Family Medicine 05/09/17 documented as of this encounter
--- OUTSIDE RECORDS SUMMARY | 2025-01-29 08:50 | XMS_ITS | Encounter Summary ---
Author Organization [employer] Address 75 [facility] 7t [place] [address] Care Team Providers Care Digester Capper Name Role Phone Audrey Calvo MD Primary Care Provider + Reason for Visit * Reason Comments Med Refill Encounter Details Date Type Department Care Team ([facility] st Contact Info) Description 10/06/2023 Refill [facility] MEDICINE [address] [place], [place] [phone] Audrey Calvo MD 230 [place] [address] Social History Tobacco Use Types Packs/Day Years [...] Info) Description 01/29/2025 1:00 PM EDT Telemedicine [facility] MEDICINE [address] [place] [address] 03/12/2025 11:00 AM EDT Office Visit [address] [address] 04/05/2025 11:30 AM EDT Office Visit [facility] MEDICINE [address] [place] [address] Audrey Calvo MD [address] [place] [address] 05/16/2025 11:00 AM EDT Office Visit [facility] ADULT DENTAL [address] [place] [address] Liya Perez documented as of this encounter Visit Diagnoses Not on filedocumented in this encounter Additional Health Concerns Assessment Noted Time PHQ-9 Depression Total Score: 0 12/23/19 23 9:08 AM EDT documented as of this encounter Care Teams Digester Capper Relationship Specialty Start Date End Date Audrey Calvo MD [address] [place] [address] PCP - General Family Medicine 05/09/17 documented as of this encounter
--- OUTSIDE RECORDS SUMMARY | 2025-01-29 08:50 | XMS_ITS | Encounter Summary ---
Author Organization [employer] Address [address] [facility] 7t [place] [address] Care Team Providers Care Telegraph Office Route Aide Name Role Phone Audrey Calvo MD Primary Care Provider + Encounter Details Date Type Department Care Team ([facility] Contact Info) Description 09/06/2024 Telephone [facility] MEDICINE [address] [place], [place] [phone] Audrey Calvo MD [address] [place] [address] Social History Tobacco Use Types Packs/Day Years [...] Info) Description 01/29/2025 1:00 PM EDT Telemedicine [facility] MEDICINE [address] [place] [address] 03/12/2025 11:00 AM EDT Office Visit [facility] MEDICINE [address] [place] [address] 04/05/2025 11:30 AM EDT Office Visit [facility] MEDICINE [address] [place] [address] Audrey Calvo MD [address] [place] [address] 05/16/2025 11:00 AM EDT Office Visit [facility] ADULT DENTAL [address] [place] [address] Liya Perez documented as of this encounter Visit Diagnoses Not on filedocumented in this encounter Additional Health Concerns Assessment Noted Time PHQ-9 Depression Total Score: 3 02/14/20 24 1:55 PM EDT documented as of this encounter Care Teams Telegraph Office Route Aide Relationship Specialty Start Date End Date Audrey Calvo MD [address] [place] [address] PCP - General Family Medicine 05/09/17 documented as of this encounter
--- OUTSIDE RECORDS SUMMARY | 2025-01-29 08:50 | XMS_ITS | Encounter Summary ---
Author Organization [employer] Address [address] [place] [address] 7[place], [place] [address] Care Team Providers Care Acoustical Installer Name Role Phone Audrey Calvo MD Primary Care Provider + Encounter Details Date Type Department Care Team (Latest Contact Info) Description 01/31/2019 Abstract [facility] CONVERSIONS Dental, Provider, DDS Social [...] Info) Description 01/29/2025 1:00 PM EDT Telemedicine [facility] MEDICINE [address] [place] [address] 03/12/2025 11:00 AM EDT Office Visit [facility] MEDICINE [address] [place] [address] 04/05/2025 11:30 AM EDT Office Visit [facility] MEDICINE [address] [place] [address] Audrey Calvo MD [address] [place] [address] 05/16/2025 11:00 AM EDT Office Visit [facility] ADULT DENTAL [address] [place] [address] Liya Perez documented as of this encounter Visit Diagnoses Not on filedocumented in this encounter Care Teams Acoustical Installer Relationship Specialty Start Date End Date Audrey Calvo MD [address] [place] [address] PCP - General Family Medicine 05/09/17 documented as of this encounter
--- OUTSIDE RECORDS SUMMARY | 2025-01-29 08:50 | XMS_ITS | Encounter Summary ---
Author Organization [employer] Address [address] [place] [address] [place] [address] Care Team Providers Care Environmental Marketing Representative Name Role Phone Audrey Calvo MD Primary Care Provider + Reason for Visit * Reason Onset Date Comments Appointment Request 12/11/2024 Encounter Details Date Type Department Care Team ([facility] Contact Info) Description 12/11/2024 Telephone [facility] MEDICINE [address] [place], [place] [phone] Audrey Calvo MD [address] [place], [place] [phone] Appointment Request Social History Tobacco Use Types [...] the past 12 months, has t he [employer], gas, oil or water company threatened to [...] encounter Miscellaneous Notes * Telephone Encounter - Edson Hess - 12/11/2024 8:56 AM EDT Tc from pt requesting to R/s Apt from 12/11/24. Contact pt at [phone] documented in this encounter Plan of Treatment Upcoming Encounters Date Type Department Care Team (Late st Contact Info) Description 01/29/2025 1:00 PM EDT Telemedicine [facility] MEDICINE [address] [place] [address] 03/12/2025 11:00 AM EDT Office Visit [facility] [address] [place] [address] 04/05/2025 11:30 AM EDT Office Visit [facility] [address] [place] [address] Audrey Calvo MD [address] [place] [address] 05/16/2025 11:00 AM EDT Office Visit [facility] ADULT DENTAL [address] [place] [address] Liya Perez documented as of this encounter Visit Diagnoses Not on filedocumented in this encounter Additional Health Concerns Assessment Noted Time PHQ-9 Depression Total Score: 3 02/14/20 24 1:55 PM EDT documented as of this encounter Care Teams Environmental Marketing Representative Relationship Specialty Start Date End Date Audrey Calvo MD [address] [place] [address] PCP - General Family Medicine 05/09/17 documented as of this encounter
--- OUTSIDE RECORDS SUMMARY | 2025-01-29 08:51 | XMS_ITS | Encounter Summary ---
Author Organization [employer] Address [address] [place] [address] [address] [address] Care Team Providers Care Damper Fitter Name Role Phone Audrey Calvo MD Primary Care Provider + Reason for Referral * Consultation (Routine) - Canceled Specialty Diagnoses / Procedures Referred By Contgalen t Referred To Contact Pharmacy Diagnoses Primary hypertension Adurey Calvo MD [address] [place] [address] Phone: tel: fax: Referral ID Status Reason Start Date Expiration Date V isits Requested Visits Authorized [id number] Canceled Continuity of Care 01/10/2025 01/10/2026 6 6 Encounter Details Date Type Department Care Team (Late st Contact Info) Description 01/09/2025 Orders Only [facility] MEDICINE [address] [place] [address] [phone] Audrey Calvo MD [address] [place], [place] [phone] Primary hypertension (Primary Dx) Social History Tobacco [...] Info) Description 01/29/2025 1:00 PM EDT Telemedicine [facility] [address] [place] [address] 03/12/2025 11:00 AM EDT Office Visit [facility] [address] [place] [address] 04/05/2025 11:30 AM EDT Office Visit [address] [address] Audrey Calvo MD [address] [place] [address] 05/16/2025 11:00 AM EDT Office Visit [facility] ADULT DENTAL [address] [place] [address] Liya Perez Scheduled Referrals Name Type Priority Associated Diagnoses Orde r Schedule Referral to Pharmacy MTM Outpatient Referral Routine Primary hypertension Ordered: 01/10/2025 documented as of this encounter Procedures Procedure Name Priority Date/Time Associated Diagnosis Comments BI MAMMOGRAM SCREENING TOMOSYNTHESIS BILATERAL Routine 01/22/2025 9:00 AM EDT documented in this encounter Results * BI Mammogram Screening Tomosynthesis Bilateral (01/22/2025 9:00 AM EDT) Anatomical Region Laterality Modality Breast Bilateral Mammography 01/22/2025 9:00 AM EDT Narrative 01/27/2025 9:44 PM EDT ? [facility] ? [address] ?[place] [address] ?[phone] ? Mammography Report ? Signed ? Patient: Sue,Kalyani I ?MR#: [id number] ?? 81 ? : 1955 ?Acct:[id number] ? Age/Sex: 69 / F ?ADM Date: 01/22/25 ? Loc: HO.MAMMO ? Attending Dr: Audrey Calvo MD ? Ordering Physician: Audrey Calvo MD ?Results: 1Ne ?? gative ? Date of Service: 01/22/25 ?Follow Up: 1 Year From Orig ?? inal Mammogram ? Procedure(s): MM tomosynthesis screening BI ?? Accession Number(s): [id number] ? cc: Audrey Calvo MD; Osmar,Srinivas COOK ? EXAMINATION: ?? MM SCREENING DIGITAL BREAST TOMOSYNTHESIS, BILATERAL ? CLINICAL INFORMATION: ? Screening. Asymptomatic. ? COMPARISON: ?? Mammography: Comparison is made with available priors ? TECHNIQUE: ?? Digital breast mammography with tomosynthesis is performed in both the ?? craniocaudal and mediolateral oblique views along with computer-aided ?? detection (CAD). ? FINDINGS: ?? The breasts are almost [...] due date for their next mammogram. ? Electronically signed by: ??Ita Copeland DO ??01/27/2025 09:41 PM EDT ?? RP ? Dictated By: ?Ita Copeland DO ? Signed By: ?<Electronically signed by Ita Copeland, DO in OV> ? 01/27/252140 ? DD/ 0900 ? TD/TT: 01/22/25 0922 ? Rn First Assist: ? Procedure Note Ismael, Ricky - 01/27/2025 [facility] [address] [place] [address] Mammography Report Signed Patient: Ubiles,Kalyani [facility]#: [id number] 83 : 7Acct:[id number] Age/Sex: 69 / FADM Date: 01/22/25 Loc: HO.MAMMO Attending Dr: Audrey Calvo MD Ordering Physician: Audrey Calvo MDResults: 1Ne gative Date of Service: 01/22/25Follow Up: 1 Year From [facility] Mammogram Procedure(s): MM tomosynthesis screening BI Accession Number(s): [id number] cc: Audrey Calvo MD; Name,Srinivas COOK EXAMINATION: MM SCREENING DIGITAL BREAST TOMOSYNTHESIS, BILATERAL CLINICAL INFORMATION: Screening. Asymptomatic. COMPARISON: Mammography: Comparison is made with available priors TECHNIQUE: Digital breast mammography with tomosynthesis is performed in both the craniocaudal and mediolateral oblique views along with computer-aided detection (CAD). FINDINGS: The breasts are almost entirely fatty [...] target due date for their next mammogram. Electronically signed by: Ita Copeland DO 01/27/2025 09:41 PM EDT Dictated By: Ita Copeland DO Signed By: <Electronically signed by Ita Copeland DO in OV> 01/27/25 2141 DD/ 0900 TD/TT: 01/22/25 0922 Rn First Assist: us Audrey Calvo MD IMG BI PROCEDURES Final Result documented in this encounter Visit Diagnoses Diagnosis Primary hypertension- Primary Unspecified essential hypertension documented in this encounter Additional Health Concerns Assessment Noted Time PHQ-9 Depression Total Score: 0 12/27/19 1:57 PM EDT documented as of this encounter Care Teams Damper Fitter Relationship Specialty Start Date End Date Audrey Calvo MD [address] [place] [address] PCP - General Family Medicine 05/09/17 documented as of this encounter
--- OUTSIDE RECORDS SUMMARY | 2025-01-29 08:51 | XMS_ITS | Encounter Summary ---
Author Organization [employer] Address [address] [place] [address] Care Team Providers Care Work Adjustment Instructor Name Role Phone Audrey Calvo MD Primary Care Provider + Reason for Visit * Reason Comments Med Refill Encounter Details Date Type Department Care Team ([facility] Contact Info) Description 03/31/2023 Refill [facility] MEDICINE [address] [place] [address] [phone] Audrey Clavo MD [address] [place] [address] [phone] HTN (hypertension), benign Social History Tobacco Use [...] Upcoming Encounters Date Type Department Care Team ([facility] Contact Info) Description 01/29/2025 1:00 PM EDT Telemedicine [facility] MED[facility]INE [address] [place] [address] [phone] 03/12/2025 11:00 AM EDT Office Visit [facility] [address] [place] [address] 04/05/2025 11:30 AM EDT Office Visit [facility] [address] [place] [address] Audrey Calvo MD [address] [place] [address] 05/16/2025 11:00 AM EDT Office Visit [facility] ADULT DENTAL [address] [place] [address] Liya Perez documented as of this encounter Visit Diagnoses Diagnosis HTN (hypertension), benign Essential hypertension, benign documented in this encounter Additional Health Concerns Assessment Noted Time PHQ-9 Depression Total Score: 0 12/23/19 23 9:08 AM EDT documented as of this encounter Care Teams Work Adjustment Instructor Relationship Specialty Start Date End Date Audrey Calvo MD [address] [place] [phone] PCP - General Family Medicine 05/09/17 documented as of this encounter
--- OUTSIDE RECORDS SUMMARY | 2025-01-29 08:51 | XMS_ITS | Clinical Summary ---
Author Organization [employer] Address [address] [place] [address] 7[address] [place] [address] Care Team Providers Care Part Time Receptionist Name Role Phone Audrey Calvo MD Primary Care Provider + Allergies Active Allergy Reactions Criticality Noted Date Comments Aspirin 08/15/2018 Gramineae Pollens Shortness of breath High 3 Medications FREESTYLE LITE test stripIndications :Type 2 diabetes mellitus with unspecified complications ([facility]) TEST BLOOD SUGAR TWICE DAILY 100 strip 11 023 Active TRUEplus Lancets 33G miscIndications: Type 2 diabetes mellitus with unspecified complications ([facility]) TEST BLOOD SUGAR TWICE DAILY 100 each 11 023 Active insulin pen needle (UltiGuard SafePack Pen Needle) 32G x 4 mm misc Use once daily 100 each 4 024 Active Lantus SoloStar 100 UNIT/ML penIndications:T ype 2 diabetes mellitus with hyperglycemia, without long-term current use of insulin (CMS/[facility]) Inject 15 units subcutaneously every evening [...] eorder (will not trigger notification to Pharmacy)) capsaicin (Capzasin-HP) 0.1 % creamIndications :Primary osteoarthritis [...] MOUTH AT BEDTIME 30 tablet 3 024 2024 Discontinued(N on-compliance) loratadine (Claritin) 10 MG tabletIndication s:Chronic rhinitis TAKE 1 TABLET BY MOUTH EVERY MORNING 90 tablet 3 2024 Discontinued(T herapy completed) ezetimibe (Zetia) 10 MG tablet TAKE 1 TABLET BY MOUTH EVERY MORNING 90 tablet 3 2024 Discontinued(N on-compliance) cholecalciferol (D3 Super Strength) 50 MCG (2000 UT) capsule TAKE 1 CAPSULE BY MOUTH EVERY MORNING 90 capsule 3 025 2024 Discontinued(N on-compliance) Praluent 150 MG/ML injection INJECT 150 MG SUBCUTANEOUSLY EVERY 2 WEEKS 2 mL 1 2024 Discontinued(M ed list cleanup (will not [...] audiology testing and follow-up with me after animal humane agent supervisor current use of opiate analgesic 2023 Overview (10/18/2024): Medication: Percocet 10-325mg Q12H PRN Indication: cervical spondylosis, bilat knee OA Last INTERNAL INVESTIGATOR Agreement: 10/16/24 Tier III (INTERNAL INVESTIGATOR visit every 4-6 months) Assessment & Plan [...] Normal DEXA: 12/07/2022: Normal Pap: referred to COMPUTER SERVICE TECHNICIAN by PCP Colonoscopy 08/28/2019 Dr Howard Assessment & Plan (01/01/2025 4:52 PM EDT): Patient will call COMPUTER SERVICE TECHNICIAN to reschedule Pap smear, I will follow-up [...] with dietitian from weight management program with [facility] ct scan to fu renal abcess is [...] , patient wants to be referred to COMPUTER SERVICE TECHNICIAN. Mammogram Overdue, I will schedule mammo. [...] scheduled for PAP smear, will refer to cardiac technician Mammogram: up to date, next one due [...] between Reminded Pt to be compliant with INTERNAL INVESTIGATOR Tubular adenoma of colon 07/17/2018 Calcaneal spur [...] HOSPITAL on 11/03/23 Patient will fu with [facility] re provider for [...] of multiple topical analgesics after discussion with [facility] Pharmacist - meds sent to pharmacy below. [...] on oxycodone PRN Continue close fu with INTERNAL INVESTIGATOR program We have done Pharmaco education re [...] 10/20/2022 Severe obesity 02/11/2012 12/25/2024 Diabetic polyneuropathy 03/10/2011 05/2 04/2024 Assessment & Plan (11/18/2022 2:22 PM EST): [...] Type Department Care Team Description 01/15/2025 Refill [facility] MEDICINE [address] [place] [address] Audrey Calvo MD Primary hypertension 01/11/2025 Refill [facility] CHC MED & PEDS [address] [place] [address] Audrey Calvo MD 01/11/2025 Travel 01/10/2025 9:30 AM EDT Office Visit [facility] MEDICINE [address] [place] [address] Wes Huffman MD Decreased hearing of both ears (Primary Dx); Routine physical examination 01/10/2025 Refill [facility] PEDIATRICS [address] [place] [address] Tiara Roper MD 01/10/2025 Travel 01/09/2025 Refill [facility] MED & PEDS [address] [place] [address] Audrey Calvo MD Achilles tendinitis of right lower extremity 01/09/2025 Orders Only [facility] MEDICINE [address] [place] [address] Audrey Calvo MD Primary hypertension (Primary Dx) 01/08/2025 11:00 AM EDT Clinical Support [facility] MEDICINE [address] [place] [address] Lola Garcia RN Other chronic pain (Primary Dx); shelter (current) use of opiate analgesic 01/08/2025 Refill [facility] MED & PEDS [address] [place] [address] Lola Garcia RN Achilles tendinitis of right lower extremity 01/08/2025 Telephone [facility] MEDICINE [address] [place] [address] Audrey Calvo MD medication 01/08/[address] [address] Audrey Calvo MD medication 01/08/2025 Travel 01/04/2025 Telephone [facility] MEDICINE [address] [place] [address] Audrey Calvo MD Follow-up 01/03/[address] [address] Audrey Calvo MD Elaine recall 01/02/[address] [address] Audrey Calvo MD Durable Medical Equipment 01/02/2025 Refill [facility] MEDICINE [address] [place] [address] Audrey Calvo MD 12/26/2024 2:15 PM EDT Office Visit [address] [address] Audrey Calvo MD Primary hypertension (Primary Dx); Type 2 diabetes mellitus with hyperglycemia, without long-term current use of insulin ([facility]); Primary osteoarthritis of left knee; Stress incontinence of urine; Calcaneal spur of left foot; Bilateral hearing loss, unspecified hearing loss type; Routine Papanicolaou smear; Encounter for preventive health examination 12/26/2024 Travel 12/25/2024 Telephone [facility] MEDICINE [address] [place] [address] Audrey Calvo MD Chart prep 12/12/[address] [address] Audrey Calvo MD Reschedule 12/12/2024 Travel 12/11/2024 Refill [facility] MED & PEDS [address] [place] [address] Audrey Calvo MD Achilles tendinitis of right lower extremity 12/11/2024 Telephone [facility] MEDICINE [address] [place] [phone] Audrey Calvo MD Appointment Request 11/13/2024 10:40 AM EST Office Visit [facility] WALK-IN CENTER [address] [place] [address] Name, MD Srinivas UTI symptoms (Primary Dx); Recurrent UTI; UTI due to extended-spectrum beta lactamase (ESBL) producing Escherichia coli 11/13/2024 Telephone [facility] MEDICINE [address] [place] [address] Audrey Calvo MD Durable Medical Equipment 11/13/2024 Telephone [facility] MEDICINE [address] [place] [address] Audrey Calvo MD Nurse Triage 11/08/2024 Refill [facility] MED & PEDS [address] [place] [address] Audrey Calvo MD Achilles tendinitis of right lower extremity from Last 3 Months Immunizations Name Administration [...] housing situation today? I have marina larissa 12/26/[address] you li [...] Info) Description 01/29/2025 1:00 PM EDT Telemedicine [facility] MEDICINE [address] [place] [address] 03/12/2025 11:00 AM EDT Office Visit [facility] MEDICINE [address] [place] [address] 04/05/2025 11:30 AM EDT Office Visit [address] [address] Audrey Calvo MD [address] [place] [address] 05/16/2025 11:00 AM EDT Office Visit [facility] ADULT DENTAL [address] [place] [address] Liya Perez Health Maintenance Due Date Last [...] 02/17/2024 12/23/2023, 02/2019 COVID-19 Vaccine (4 - 2024-25 season) 2024 08/02/2022, 03/05/2021, 02/05/2021 Dental Oral Exam 01/25/2025 07/27/2024, , 03/06/2019, Additional history exists Dental Prophylaxis 01/25/2025 07/27/2024, 01/31/2019 Diabetes: Hemoglobin A1C 03/27/2025 025, 02/14/2024, 10/20/2023, Additional history exists Lipid Panel 06/29/2025 06/29/2024, 12/19, 12/20/2022, Additional history exists Dental X-Ray: Bitewings 07/28/2025 07/27/20 24, 09/05/2019, 08/15/2018 Depression Screening 12/26/2025 12/26/2024, 12/27/19 25 Diabetes: Foot Exam 12/26/2025 12/26/2024, 12/26/2024, 12/26/2024, Additional history exists SDOH Screening 12/26/2025 12/26/2024 Tobacco Screening 12/26/2025 12/26/2024 Alcohol/Substance Use Screening 01/10/2026 01/10/2025 Mammogram 01/22/2026 01/22/2025, 12/20, 11/09/2022, Additional history exists Pneumococcal Vaccine: 50+ Years (3 of 3 [...] TOMOSYNTHESIS BILATERAL Routine 01/22/2025 9:00 AM EDT POCT CHIQUITA-14 URINE DRUG SCREEN Routine 01/08/2025 11:33 AM EDT Other chronic pain shelter (current) use of opiate analgesic POCT GLYCATED HEMOGLOBIN, TOTAL Routine 12/26/2024 1:59 PM EDT Type 2 diabetes mellitus with hyperglycemia, without long-term current use of insulin ([facility]) POCT GLUCOSE Routine 12/26/2024 1:58 PM EDT Type 2 diabetes mellitus with hyperglycemia, without long-term current use of insulin ([facility]) CULTURE, URINE, ROUTINE Routine 11/13/2024 10:56 AM [...] Routine 06/29/2024 8:54 AM EDT Primary hypertension ZZZ HISTORICAL MICROALBUMIN, RANDOM Routine 03/02/2021 1:58 PM EDT HM COLONOSCOPY Routine 08/28/2019 8:20 AM EST from Last 3 Months or Most Recently Relevant to Health Maintenance Results * BI Mammogram Screening Tomosynthesis Bilateral (01/22/2025 9:00 AM EDT) Anatomical Region Laterality Modality Breast Bilateral Mammography 01/22/2025 9:00 AM EDT Narrative 01/27/2025 9:44 PM EDT ? [facility] ? [address] ?[place] [address] ?[phone] ? Mammography Report ? Signed ? Patient: Kendrickmelania,Kalyani I ?MR#: [id number] ?? 83 ? : 1955 ?Acct:[id number] ? Age/Sex: 69 / F ?ADM Date: 01/22/25 ? Loc: HO.MAMMO ? Attending Dr: Audrey Calvo MD ? Ordering Physician: Audrey Calvo MD ?Results: 1Ne ?? gative ? Date of Service: 01/22/25 ?Follow Up: 1 Year From Orig ?? inal Mammogram ? Procedure(s): MM tomosynthesis screening BI ?? Accession Number(s): [id number] ? cc: Audrey Calvo MD; Srinivas Prasad MD ? EXAMINATION: ?? MM SCREENING DIGITAL [...] ??Ita Copeland DO ??01/27/2025 09:41 PM EDT ? Dictated By: ?Ita Copeland DO ? Signed By: ?<Electronically signed by Ita Copeland, DO in OV> ? 01/27/25 2141 ? DD/ 0900 ? TD/TT: 01/22/25 0922 ? Outsole Tacker: ? Procedure Note Ismael, Image - 01/27/2025 [facility] [address] [place] [address] Mammography Report Signed Patient: Kalyani Rogers IMR#: [id number] 83 : 7Acct:[id number] Age/Sex: 69 / FADM Date: 01/22/25 Loc: NERYO Attending Dr: Audrey Calvo MD Ordering Physician: Audrey Calvoesults: 1Ne gative Date of Service: 01/22/25Follow Up: 1 Year From Orig inal Mammogram Procedure(s): MM tomosynthesis screening BI Accession Number(s): [id number] cc: Audrey Calvo MD; Name,Srinivas COOK EXAMINATION: [...] 01/27/25 2141 DD/ 0900 TD/TT: 01/22/25 0922 Outsole Tacker: Audrey Calvo MD IMG BI PROCEDURES Final Result * POCT CHIQUITA-14 Urine Drug Screen (01/08/2025 11:33 AM EDT) Oxycodone Screen, Urine Positive Urine Urine specimen obtained by clean catch procedure / Unknown 01/08/2025 11:33 AM EDT Narrative Lola Garcia RN - 01/08/2025 11:33 AM EDT .Lot# [id number] Exp: 07-19-26 Audrey Calvo MD POINT OF CARE TEST ENTER /EDIT ORDERABLES Final Result * (ABNORMAL) POCT HGB A1C (12/26/2024 1:59 PM EDT) Hemoglobin A1C 8.1(A) 4.0 - 6.0 % QC Media Lot # [id number] Lot# Expiration Date ,600 Blood 12/26/2024 1:59 PM EDT Audrey Calvo MD POINT OF CARE TEST ENTER /EDIT ORDERABLES Final Result * POCT Glucose (12/26/2024 1:58 PM EDT) [facility] Glucose Blood, POC 148 60 - 200 mg/dL QC Media Lot # [id number] Lot# Expiration Date ,025 Blood Capillary blood specimen / Unknown 12/26/2024 1:58 PM EDT Audrey Calvo MD POINT OF CARE TEST ENTER /EDIT ORDERABLES Final Result * Culture, Urine, Routine (11/13/2024 10:56 AM EST) Urine Urine specimen obtained by clean catch procedure / Unknown 11/13/2024 10:56 AM EST 11/13/2024 2:01 PM EST Comment:[facility] Narrative [facility] - 11/15/2024 7:38 AM EST Escherichia coli ESBL Note: NOTE: Extended-Spectrum Beta-Lactamase enzyme present Quant > 100,000 cfu/mL Escherichia coli: Ampicillin >=32(R) Escherichia coli: Cefazolin (Urine) >=32(R) Escherichia coli: Cefepime 16(R) Escherichia coli: Ceftriaxone >=64(R) Escherichia coli: Ciprofloxacin >=4(R) Escherichia coli: Ertapenem <=0.12(S) Escherichia coli: Gentamicin <=1(S) Escherichia coli: Nitrofurantoin <=16(S) Escherichia coli: Trimethoprim/Sulfamethoxazole <=20(S) Specimen Source: Urine clean catch Srinivas Prasad MD LAB MICROBIOLOGY - GENERAL ORDER ASMITA Final Result [facility] [address] [place] [phone] * (ABNORMAL) POCT urinalysis dipstick manually [...] 8:54 AM EDT) Triglycerides 66 <150 mg/dL [facility] Comment:Desirable Triglyceri de: less than 150 mg/dLBorderline High Triglyceride 150-199 mg/dLHigh Triglyceride: 200-499 mg/dLVery High Triglyceride: greater than or equal to 5OO mg/dL Cholesterol 139 <200 mg/dL [facility] Comment:Desirable Cholestero l: less than 200 mg/dLBorderline High Cholesterol: 200-239 mg/dLHigh Cholesterol: greater than 239 mg/dL LDL Cholesterol Calculated 71 <100 mg/dL [facility] Comment:Desirable LDL: less than 100 mg/dLNear Optimal/Above Optimal LDL: 110- 129 mg/dLBorderline High LDL: 130-159 mg/dLHigh LDL: 160-189 mg/dLVery High LDL: greater than or equal to 190 mg/dL HDL Cholesterol 55 >40 mg/dL [facility] Comment:Desirable HDL: great er than 40 mg/dL Note: This HDL assay may give artificially low results in patients with liver disease. Blood 06/29/2024 8:54 AM EDT 06/29/2024 11:09 AM EDT us Audrey Calvo MD LAB BLOOD ORDERABLES Fin al Result [facility] [address] [place] [address] [phone] * MICROALBUMIN, RANDOM (03/02/2021 1:58 PM EDT) Creatinine Urine 30.13 mg/dL [facility] Microalbum/Creati nine Ratio Ur 43.1 ug/mg cr [facility] Comment: ?Albumin/Creatinine Ratio Reference Ranges: ? Normal: < 30 ug/mg creatinine ? Microalbuminuria: ??30 - 300 ug/mg creatinine Clinical Albuminuria: ??> 300 ug/mg creatinine Microalbumin Urine 13.0 mg/L [facility] 03/02/2021 1:58 PM EDT us Historical Provider HISTORICAL/NON ORDERABLE LABS Final Result Performing Organization Address City/State/[facility] Co de Phone Number [facility] [address] * Hm Colonoscopy (08/28/2019 8:20 AM EST) us Historical Provider HEALTH MAINTENANCE Final Result from Last 3 Months or Most Recently Relevant to Health Maintenance Insurance [facility] Member Subscriber Plan / Payer (Ef fective 2018-Present) Name:Kalyani Rogers Ling Relation to Subscriber:Self Name:Kalyani Rogers Ling Payer ID:Not on file Group ID:[id number] Type:Not on file Address: [address] SNF OPTIONS (HMO D-SNP) D[facility]AL - [facility] Care Teams Part Time Receptionist Relationship Specialty Start Date End Date Audrey Calvo MD [address] [place] [phone] PCP - General Family Medicine 05/09/17
--- OUTSIDE RECORDS SUMMARY | 2025-01-29 08:51 | XMS_ITS | Encounter Summary ---
Author Organization [employer] Address [address] [facility] 7t [place] [address] Care Team Providers Care Head Grinder Name Role Phone Audrey Calvo MD Primary Care Provider + Encounter Details Date Type Department Care Team (Late st Contact Info) Description 02/15/2024 Orders Only [facility] MEDICINE [address] [place], [place] [phone] Provider, MD [place] Social History Tobacco Use [...] Info) Description 01/29/2025 1:00 PM EDT Telemedicine [facility] MEDICINE [address] [place] [phone] 03/12/2025 11:00 AM EDT Office Visit [address] [address] 04/05/2025 11:30 AM EDT Office Visit [facility] MEDICINE [address] [place] [address] Audrey Calvo MD [address] [place] [address] 05/16/2025 11:00 AM EDT Office Visit [facility] ADULT DENTAL [address] [place] [phone] Liya Perez documented as of this encounter [...] documented as of this encounter Care Teams Head Grinder Relationship Specialty Start Date End Date Audrey Calvo MD [address] [place] [address] PCP - General Family Medicine 05/09/17 documented as of this encounter
--- OUTSIDE RECORDS SUMMARY | 2025-01-29 08:51 | XMS_ITS | Encounter Summary ---
Author Organization [employer] Address [address] [facility] 7t [place] [address] Care Team Providers Care Pigment And Lacquer Mixer Name Role Phone Audrey Calvo MD Primary Care Provider + Reason for Visit * Reason Comments Med Refill Encounter Details Date Type Department Care Team ([facility] st Contact Info) Description 01/09/2025 Refill C [facility] [address] [place] [address] Audrey Calvo MD [address] [place] [address] Achilles tendinitis of right lower extremity Social [...] the past 12 months, has t he [employer], gas, oil or water company threatened to [...] Info) Description 01/29/2025 1:00 PM EDT Telemedicine [facility] MEDICINE [address] [place] [phone] 03/12/2025 11:00 AM EDT Office Visit [facility] [address] [place] [address] 04/05/2025 11:30 AM EDT Office Visit [facility] [address] [place] [address] Audrey Calvo MD [address] [place] [phone] 05/16/2025 11:00 AM EDT Office Visit [facility] ADULT DENTAL [address] [place] [address] Liya Perez documented as of this encounter Visit Diagnoses Diagnosis Achilles tendinitis of right lower extremity documented in this encounter Additional Health Concerns Assessment Noted Time PHQ-9 Depression Total Score: 0 12/27/19 25 1:57 PM EDT documented as of this encounter Care Teams Pigment And Lacquer Mixer Relationship Specialty Start Date End Date Audrey Calvo MD [address] [place] [address] PCP - General Family Medicine 05/09/17 documented as of this encounter
--- OUTSIDE RECORDS SUMMARY | 2025-01-29 08:51 | XMS_ITS | Encounter Summary ---
Author Organization [employer] Address [address] [place] [address] 7t [place] [address] Care Team Providers Care Plant Reliability Engineer Name Role Phone Audrey Calvo MD Primary Care Provider + Encounter Details Date Type Department Care Team (Late st Contact Info) Description 11/22/2022 Orders Only [facility] [address] [place] [address] Emi Gill LPN Social History Tobacco Use [...] Description 01/29/2025 1:00 PM EDT Telemedicine [facility] [place] [place] [address] 03/12/2025 11:00 AM EDT Office Visit [facility] [place] [place] [address] 04/05/2025 11:30 AM EDT Office Visit [facility] [place] [place] [address] Audrey Calvo MD [address] [place] [address] 05/16/2025 11:00 AM EDT Office Visit [facility] [place] [place] [address] Liya Perez documented as of this encounter Procedures Procedure Name Priority Date/Time Associated Diagnosis Comments BD DEXA AXIAL Routine 12/07/2022 11:21 AM EDT documented in this encounter Results * BD DEXA Axial (12/07/2022 11:21 AM EDT) Anatomical Region Laterality Modality Body Radiographic Farheen ging 12/07/2022 11:2 1 AM EDT Narrative 12/08/2022 7:44 AM EDT ? [facility] ? [address] ?[place] [id number] ? Mammography Report ? Signed ? Patient: Sue,Kalyani I ?MR#: [id number] ?? 83 ? : 1955 ?Acct:[id number] ? Age/Sex: 67 / F ?ADM Date: 03/21/23 ? Loc: HO.MAMMO ? Attending Dr: Audrey Calvo MD ? Ordering Physician: Audrey Calvo MD ?Results: ? Date of Service: 12/07/22 ?Follow Up: ? Procedure(s): XR DEXA axial skeleton ?? Accession Number(s): [id number] ? cc: Audrey Calvo MD ? EXAMINATION: ?? BONE DENSITOMETRY ? CLINICAL INDICATION: ?? Screening. ? COMPARISON: ?? Previous BD dated 10/14/2017 and baseline BD dated 11/13/2013. ? TECHNIQUE: Using a Kam[employer] DXA System (software version: ?? 13.1) manufactured by [employer], dual-energy x-ray absorptiometry ?? was performed of [...] 0741 ? DD/ 1121 ? TD/TT: ? Automatic Mold Sander: PATTERSON ? Procedure Note Donotuseinterpreter, Image - [facility] [address] [place] [address] Mammography Report Signed Patient: Kalyani Rogers IMR#: [id number] 83 : 7Acct:[id number] Age/Sex: 67 / FADM Date: 12/07/22 Loc: HO.MAMMO Attending Dr: Audrey Calvo MD Ordering Physician: Audrey Calvoesults: Date of Service: 12/07/22Follow Up: Procedure(s): XR DEXA axial skeleton Accession Number(s): [id number] cc: Audrey Calvo MD EXAMINATION: BONE DENSITOMETRY CLINICAL INDICATION: Screening. COMPARISON: Previous BD dated 10/14/2017 and baseline BD dated 11/13/2013. TECHNIQUE: Using a Kamcord DXA System (software version: 13.1) manufactured by [employer], dual-energy x-ray absorptiometry was performed of the [...] in OV> 12/08/22 0741 DD/ 1121 TD/TT: Automatic Mold Sander: LEONARDO [facility] External Provider IMG DXA PROCEDURES Final Result documented in this encounter Visit Diagnoses Not on filedocumented in this encounter Care Teams Plant Reliability Engineer Relationship Specialty Start Date End Date Audrey Calvo MD [address] [place] [address] PCP - General Family Medicine 05/09/17 documented as of this encounter
== END 2025-01-29 08:34 | disposition home or self-care (01) ==
LOC: HO.SH 08:33
PROVIDERS: Visit Provider Internal Medicine
DX: Z01.118 Encounter for examination of ears and hearing with other abnormal findings (principal); H90.3 Sensorineural hearing loss, bilateral
CPT/HCPCS: 92557; 92567

== ENCOUNTER 2025-02-01 08:18 | Outpatient (REF) | payer OTHER, SELFPAY ==
--- OUTSIDE RECORDS SUMMARY | 2025-02-01 08:29 | XMS_ITS | Encounter Summary ---
Author Organization [employer] Address [address] [facility] 7t [place] [address] Care Team Providers Care Educational Institution Curator Name Role Phone Audrey Calvo MD Primary Care Provider + Reason for Visit * Reason Comments Med Refill Encounter Details Date Type Department Care Team ([facility] st Contact Info) Description 08/18/2023 Refill [facility] MED[facility]INE [address] [place] [address] Audrey Calvo MD [address] [place] [address] Social History Tobacco Use Types Packs/Day Years [...] Care Team (Late st Contact Info) Description 02/01/2025 12:00 PM EDT Office Visit [facility] MED[facility]INE [address] [place] [address] Audrey Calvo MD [address] [place] [address] 02/12/2025 3:30 PM EDT Telemedicine [facility] [address] [place] [phone] 03/12/2025 11:00 AM EDT Office Visit [facility] [address] [place] [phone] 04/05/2025 11:30 AM EDT Office Visit [facility] MED[facility] [address] [place] [address] [phone] Audrey Calvo MD [address] [place] [address] [phone] 05/16/2025 11:00 AM EDT Office Visit [facility] ADULT DENTAL [address] [place] [phone] Liya Perez documented as of this encounter Visit Diagnoses Not on filedocumented in this encounter Additional Health Concerns Assessment Noted Time PHQ-9 Depression Total Score: 0 12/23/19 23 9:08 AM EDT documented as of this encounter Care Teams Educational Institution Curator Relationship Specialty Start Date End Date Audrey Calvo MD [address] [place] [phone] PCP - General Family Medicine 05/09/17 documented as of this encounter
--- OUTSIDE RECORDS SUMMARY | 2025-02-01 08:29 | XMS_ITS | Encounter Summary ---
Author Organization [employer] Address [address] [facility] 7t [place] [address] Care Team Providers Care Detailer Furniture Name Role Phone Audrey Calvo MD Primary Care Provider + Encounter Details Date Type Department Care Team ([facility] st Contact Info) Description 07/02/2024 Orders Only [facility] MED[facility] [address] [place], [place] [phone] Cassia Juarez MD [address] [place], [place] [phone] Social History Tobacco Use Types Packs/Day Years [...] Description 02/01/2025 12:00 PM EDT Office Visit [facility] [address] [place] [address] Audrey Calvo MD [address] [place] [phone] 02/12/2025 3:30 PM EDT Telemedicine [facility] [address] [place] [phone] 03/12/2025 11:00 AM EDT Office Visit [facility] [address] [place] [phone] 04/05/2025 11:30 AM EDT Office Visit [facility] [address] [place] [address] Audrey Calvo MD [address] [place] [phone] 05/16/2025 11:00 AM EDT Office Visit [facility] ADULT DENTAL [address] [place] [address] Liya Perez documented as of this encounter Visit Diagnoses Not on filedocumented in this encounter Additional Health Concerns Assessment Noted Time PHQ-9 Depression Total Score: 3 02/14/20 24 1:55 PM EDT documented as of this encounter Care Teams Detailer Furniture Relationship Specialty Start Date End Date Audrey Calvo MD [address] [place] [address] PCP - General Family Medicine 05/09/17 documented as of this encounter
--- OUTSIDE RECORDS SUMMARY | 2025-02-01 08:29 | XMS_ITS | Encounter Summary ---
Author Organization [employer] Address [address] [place] [address] Care Team Providers Care Patient Support Assistant Name Role Phone Audrey Calvo MD Primary Care Provider + Reason for Visit * Consultation (Routine) - Pending Review Specialty Diagnoses / Procedures Referred By Franck t Referred To Contact Pharmacy Diagnoses Primary hypertension Audrey Calvo MD [address] [place] [phone] Phone: tel: fax: Referral ID Status Reason Start Date Expiration Date Visits Requested Visits Authorized [id number] Pending Review Continuity of Care 01/09/2025 01/09/2026 6 6 Encounter Details Date Type Department Care Team (Latest Contact Info) Description 01/29/2025 1:00 PM EDT Clinical Support [facility] MEDICINE [address] [place] [address] Enedelia Jolley, PharmD [address] [place] [address] Primary hypertension (Primary Dx); Type 2 diabetes mellitus with hyperglycemia, without long-term current use of insulin ([facility]); Hyperlipidemia, unspecified hyperlipidemia type; Other chronic pain; Asthma, unspecified asthma severity, unspecified whether complicated, unspecified whether persistent Social History Tobacco Use Types Packs/Day Years Used Date Smoking Tobacco: Never Passive Smoke Exposure: Never Smokeless Tobacco: Never Alcohol Use Standard Drinks/Week Comments Never 0 (1 standard drink = 0.6 oz pur e alcohol) Alcohol Answer Date Recorded Frequency of Alcohol Consumption Not on file 12/23/2023 Average Number of Drinks Not on file 024 Frequency of Binge Drinking Not on file 040 01/2024 Score 0 12/23/2023 Depression Answer Date [...] Sign Reading Time Taken Comments Blood Pressure 125/76 01/29/2025 1:32 PM EDT at home reading Pulse 75 01/29/2025 1:32 PM EDT patie nt reported - at home reading Temperature - - Respiratory Rate - - Oxygen Saturation - - Inhaled Oxygen Concentration - - Weight - - Height - - Body Mass Index - - documented in this encounter Progress Notes * Enedelialala Jolley PharmD - 01/29/2025 1:00 PM EDT Pharmacy Consult Visit Type: MTM Visit Pharmacist: Enedelia Jolley PharmD Referral Diagnosis: I10 (ICD-10-CM) - Primary hypertension Referral Expiration: 01/09/2026 Referring Provider: Audrey Calvo MD Pharmacy Recommendations for Provider: Since patient receives monthly medboxes, please contact medbox pharmacist with any medication changes (initiations, discontinuation, dose adjustments) Please consider increasing pregabalin to 50 mg twice daily (currently takes 75 mg once daily) for better pain control and to reduce reliance on oxycodone- acetaminophen. Patient is using the IR formulation, typically dosed 2-3 times daily for diabetic neuropathy per clinpharm and lexicomp Please consider increasing Lantus Solostar to 17 units every evening, then increase by 2 units every 2 to 3 days until fasting blood sugars are < 130 mg/dL, provided no hypoglycemia occurs (followed by A1C in 3 months) Please consider ordering the following labs: Please reassess BMP, recommended monitoring parameter 2-4 weeks following re- initiation of chlorthalidone to assess serum electrolytes and kidney function Please reassess FLP + LFT, recommended monitoring parameter 4-12 weeks following reinitiating statin therapy Per prior discussion for MTM plan, please repeat vitamin D labs due to previous discontinuation of cholecalciferol. Can consider reinitiating therapy if levels < 20 ng/mL Background/ Visit Intake Kalyani Rogers is a 69 y.o. patient here for a follow-up visit. Visit completed over the phone. Patient gave verbal consent for their daughter (Loly Toney) to join the visit Allergies: is allergic to gramineae pollens and aspirin. Preferred Pharmacy: [facility] - [address] [phone] [id number] - [place] [facility] & [address] [place] [address] Medbox: Yes, last medbox on 01/18/2025. Assessment & Plan Adherence: History: Medication Reconciliation: Reports taking the following medications differently than prescribed: Oxycodone - acetaminophen: reports self-escalating dose to 1 tablet by mouth three times daily for pain management, prescribed 1 tablet twice daily as needed(refer to Chronic Pain section for furtherdetails) OTC medication, vitamin, supplement use: denies Adherence: Medication Organization: Uses medboxes from [facility] pharmacy Reports satisfaction with [facility] medbox program Missed doses: reports missing 2-3 doses/week of afternoon medications (refer to Chronic Pain section for further details) Read/Write: Yes, in Kinyarwanda Goals of therapy: Improve adherence & minimize missed doses (<2 missed doses/week) Recommendations/Monitoring: Since patient receives monthly medboxes, please contact medbox pharmacist with any medication changes (initiations, discontinuation, dose adjustments) Per prior discussion for MTM plan, please repeat vitamin D labs due to previous discontinuation of cholecalciferol. Can consider reinitiating therapy if levels < 20 ng/mL Review of asthma symptoms following initiation of Arnuity Ellipta was deferred to follow up due to time constraints Chronic pain Pharmacologic Therapy: Oxycodone-acetaminophen 10-325 mg by mouth every 12 hours as needed for severe pain Pregabalin 75 mg by mouth at bedtime Lidocaine 5% patch topically to skin, leave on for 12 hours and off for 12 hours as directed History Patient reports taking an additional oxycodone-acetaminophen for pain in back and knees during the day Reports that they often pass out after the additional dose due to sedation, missing afternoon doses 2-3 times/week Reports following with pain management Reports openness to increasing pregabalin Reports having Narcan at home Plan Pharmacy advised against increasing oxycodone-acetaminophen due to safety concerns; patient verbalized understanding and agreed to take as prescribed Pharmacy notified team nurses of increased use and requested assistance with scheduling a pain management consultation Please consider increasing pregabalin to 50 mg twice daily (currently takes 75 mg once daily) for better pain control and to reduce reliance on oxycodone- acetaminophen. Patient is using the IR formulation, typically dosed 2-3 times daily for diabetic neuropathy per clinpharm and lexicomp Diabetes Pharmacologic Therapy: Trulicity 4.5 mg subcutaneously once weekly Lantus Solostar 15 units subcutaneously every evening History: Patient reports concern over high blood sugar readings Requests additional diabetes medication. Open to increasing Lantus Solostar dose Requests a Trulicity refill SMBG: Denies using CGM; monitor is broken Reports pharmacy advised a new reader was needed Reports [facility] nurse called the in home sales consultant to request a replacement however it was never received Patient reports testing 2 times per day. A 4 day summary is provided below Patient reported the following SMBG: Blood glucose (mg/dL) Date Fasting Before dinner 01/29/2025 193 01/28/2025 176 01/27/2025 183 200 01/26/2025 200 Lab monitoring: Lab Results Component Value Date K 4.6 10/17/2024 NA 142 10/17/2024 CREATININE 0.68 10/17/2024 EGFR >60 10/17/2024 HGBA1C 8.1 (A) 12/26/2024 HGBA1C 7.7 (A) 02/14/2024 HGBA1C 7.9 (A) 10/20/2023 Additional recommendations per ADA: On ACEI/ARB: Yes On Aspirin: No (unknown allergy per EHR) On Statin: Yes (high intensity) Dental exam in the past 6 months: Yes, reports last dental exam 10/2024 and upcoming appointment or March Eye Exam in the past 12 months: Yes, reports last eye exam 07/2024 in [place] and upcoming appointment 07/2025 Goals of therapy: Per the ADA Standards of Medical Care in Diabetes - 2023 Achieve A1c of <7% while also minimizing episodes of hypoBG (<70 mg/dL) Plan: Please consider increasing Lantus Solostar to 17 units every evening, then increase by 2 units every 2 to 3 days until fasting blood sugars are < 130 mg/dL, provided no hypoglycemia occurs (followed by A1C in 3 months) Pharmacy provided [facility] with the online link for a replacement freestyle devan 2 meter to assist thepatient with requesting a new reader Patient reports pharmacy advised a new reader was needed, but none was received after contacting the company Patient due for annual urine microalbumin. Pharmacist reminded patient to complete pending lab order. Patient plans to visit [facility] with daughters assistance 02/01/2025 Future consideration: if urine tfirzxw-rt-cihvpftojc ratio > 200 mg/g, may consider initiation of Jardiance 10 mg once daily for kidney protection per 2024 ADA standards of care followed by A1C in3 months Diet and exercise review deferred to follow up due to time constraints Trulicity refill queued at [facility] pharmacy with note to call patient when ready Education: Discussed blood glucose goals (fasting vs non-fasting) Reviewed that reported BG are high, however they are not an immediate emergency. Instructed patientto contact [facility] if BG > 240 mg/dL. Patient verbalized understanding and agreed Hypertension: Pharmacologic Therapy: Chlorthalidone 25 mg by mouth once daily Enalapril 20 mg by mouth once daily History: Patient checked their BP during telehealth MTM which was WNL Pertinent negatives include chest pain, head ache, blurry vision. Recent Blood Pressure values: BP Readings from Last 4 Encounters: 01/29/25 125/76 01/11/25 (!) 152/76 01/10/25 130/86 12/26/24 (!) 162/75 Pulse Readings from Last 4 Encounters: 01/29/25 75 01/11/25 69 01/10/25 65 12/26/24 68 Lab monitoring Lab Results Component Value Date NA 142 10/17/2024 K 4.6 10/17/2024 CREATININE 0.68 10/17/2024 EGFR >60 10/17/2024 Goals of Therapy per JNC 8: Achieve & maintain BP <140/90mmHg Plan: Please reassess BMP, recommended monitoring parameter 2-4 weeks following re- initiation of chlorthalidone to assess serum electrolytes and kidney function BP log results deferred to follow up due to time constraints Intermediate ASCVD Risk and hyperlipidemia Pharmacologic Therapy: Ezetimibe 10 mg by mouth every morning Rosuvastatin 40 mg by mouth at bedtime Lab monitoring: Lab Results Component Value Date CHOL 139 06/29/2024 LDLCHOLCAL 71 06/29/2024 HDL 55 06/29/2024 TRIG 66 06/29/2024 AST 14 06/29/2024 ALT 14 06/29/2024 ASCVD risk Theater Set Production Designer Plus: 14.0% intermediate current 10-year ASCVD risk Goals of Therapy: ACC/AHA 2018 Cholesterol Guidelines: Ensure evidence based and safe use of medications for primary prevention of ASCVD. Plan: Please reassess FLP + LFT, recommended monitoring parameter 4-12 weeks following reinitiating statin therapy Allergy to aspirin not reviewed; deferred to follow-up Immunizations History: Immunization History Administered Date(s) Administered Influenza High-dose Quadrivalent Preservative Free 07/29/2023 Influenza injectable quadrivalent IIV4 with preservative 07/11/2015, 07/05/2017 Influenza injectable quadrivalent preservative free 02/02/2019, 06/15/2019, 07/24/2020, 09/17/2021,08/02/2022 Influenza, High Dose Seasonal, Preservative Free 07/16/2024 Influenza, IIV3, injectable 06/27/2014 Influenza, Split (incl. purified surface antigen) 05/19/2012, 05/25/2013, 2015 Moderna Covid-19 Vaccine 12+ 02/05/2021, 03/05/2021 Pfizer Covid-19 Vaccine 12+ Bivalent 08/02/2022 Pneumococcal Conjugate PCV 13 10/27/2021 Pneumococcal Polysaccharide PPSV23 09/05/2002, 04/01/2017 TD (adult), 2 Lf tetanus toxoid, preservative free, adsorbed 01/23/2007, 11/18/2022 Tdap 05/25/2013 Zoster, Recombinant 12/23/2023 Zoster, live 05/25/2019 Goals of therapy: Ensure patient is up to date per the CDC Adult Immunization Schedule. Assessment/Plan: COVID-19 2296-3055 vaccine: Due Hepatitis A series (Requests vaccination): Due Hepatitis B series (Age 60+ with risk factors): Due Shingrix series (age > 50 ): Due RSV vaccine (Age 60-74 with risk factors): Due Plan: Pharmacy unable to review indicated vaccinations due to time constraints, differed to follow up Patient Action Plan Reviewed today with plan to revisit at follow up in 2 weeks (02/12/2025): follow up due to time constraints of a 30 minute visit Continue to adhere to medication Monitor blood sugar and blood pressure as directed Complete pending urine microalbumin Receive all recommended vaccinations Attend follow up appointments documented in this encounter Plan of Treatment Upcoming Encounters Date Type Department Care Team (Late st Contact Info) Description 02/01/2025 12:00 PM EDT Office Visit [facility] MEDICINE [address] [place] [phone] Audrey Calvo MD [address] [place] [phone] 02/12/2025 3:30 PM EDT Telemedicine [address] [address] 03/12/2025 11:00 AM EDT Office Visit [address] [address] 04/05/2025 11:30 AM EDT Office Visit [address] [address] Audrey Calvo MD [address] [place] [address] 05/16/2025 11:00 AM EDT Office Visit [facility] ADULT DENTAL [address] [place] [phone] Liya Perez documented as of this encounter Visit Diagnoses Diagnosis Primary hypertension- Primary Unspecified essential hypertension Type 2 diabetes mellitus with hyperglycemia, without long-term current use of insulin ([facility]) Hyperlipidemia, unspecified hyperlipidemia type Other chronic pain Asthma, unspecified asthma severity, unspecified whether complicated, unspecified whether persistent documented in this encounter Additional Health Concerns Assessment Noted Time PHQ-9 Depression Total Score: 0 12/27/19 25 1:57 PM EDT documented as of this encounter Care Teams Patient Support Assistant Relationship Specialty Start Date End Date Audrey Calvo MD [address] [place] [phone] PCP - General Family Medicine 05/09/17 documented as of this encounter
--- OUTSIDE RECORDS SUMMARY | 2025-02-01 08:29 | XMS_ITS | Encounter Summary ---
Author Organization [employer] Address [address] [facility] 7t [place] [address] Care Team Providers Care Security Clerk Name Role Phone Audrey Calvo MD Primary Care Provider + Reason for Visit * Reason Comments Med Refill Encounter Details Date Type Department Care Team ([facility] st Contact Info) Description 10/06/2023 Refill [facility] MEDICINE [address] [place], [place] [phone] Audrey Calvo MD 230 [place] [address] Social History Tobacco Use Types Packs/Day Years [...] Description 02/01/2025 12:00 PM EDT Office Visit [facility] MEDICINE [address] [place] [address] Audrey Calvo MD [address] [place] [address] 02/12/2025 3:30 PM EDT Telemedicine [facility] [address] [place] [address] 03/12/2025 11:00 AM EDT Office Visit [facility] MED[facility]INE [address] [place] [address] 04/05/2025 11:30 AM EDT Office Visit [facility] MEDICINE [address] [place] [address] [phone] Audrey Calvo MD [address] [place] [address] [phone] 05/16/2025 11:00 AM EDT Office Visit [facility] ADULT DENTAL [address] [place] [address] Liya Perez documented as of this encounter Visit Diagnoses Not on filedocumented in this encounter Additional Health Concerns Assessment Noted Time PHQ-9 Depression Total Score: 0 12/23/19 23 9:08 AM EDT documented as of this encounter Care Teams Security Clerk Relationship Specialty Start Date End Date Audrey Calvo MD [address] [place] [address] PCP - General Family Medicine 05/09/17 documented as of this encounter
--- OUTSIDE RECORDS SUMMARY | 2025-02-01 08:29 | XMS_ITS | Encounter Summary ---
Author Organization [employer] Address [address] [facility] 7t [place] [address] Care Team Providers Care Furnace Converter Name Role Phone Audrey Calvo MD Primary Care Provider + Encounter Details Date Type Department Care Team (Late st Contact Info) Description 10/19/2023 Orders Only [facility] MED & PEDS [address] [place], [place] [phone] Nila Gallardo LPN Social History Tobacco Use [...] Description 02/01/2025 12:00 PM EDT Office Visit [facility] MEDICINE [address] [place] [address] Audrey Calvo MD [address] [place] [address] 02/12/2025 3:30 PM EDT Telemedicine [address] [address] 03/12/2025 11:00 AM EDT Office Visit [address] [address] 04/05/2025 11:30 AM EDT Office Visit [address] [address] Audrey Calvo MD [address] [place] [address] 05/16/2025 11:00 AM EDT Office Visit [facility] ADULT DENTAL [address] [place] [address] Liya Perez documented as of this encounter Visit Diagnoses Not on filedocumented in this encounter Additional Health Concerns Assessment Noted Time PHQ-9 Depression Total Score: 0 12/23/19 23 9:08 AM EDT documented as of this encounter Care Teams Furnace Converter Relationship Specialty Start Date End Date Audrey Calvo MD [address] [place] [address] PCP - General Family Medicine 05/09/17 documented as of this encounter
--- OUTSIDE RECORDS SUMMARY | 2025-02-01 08:30 | XMS_ITS | Encounter Summary ---
Author Organization [employer] Address [address] [place] [address] [place], [place] [address] Care Team Providers Care Debridging Machine Operator Name Role Phone Audrey Calvo MD Primary Care Provider + Reason for Visit * Reason Onset Date Comments Appointment Request 12/11/2024 Encounter Details Date Type Department Care Team ([facility] Contact Info) Description 12/11/2024 Telephone [facility] MEDICINE [address] [place], [place] [phone] Audrey Calvo MD 230 [place], [place] [phone] Appointment Request Social History Tobacco Use Types [...] the past 12 months, has t he [employer], gas, oil or water company threatened to [...] R/s Apt from 12/11/24. Contact pt at [phone] documented in this encounter Plan of Treatment Upcoming Encounters Date Type Department Care Team (Late st Contact Info) Description 02/01/2025 12:00 PM EDT Office Visit [facility] MED[facility]INE [address] [place] [address] Audrey Calvo MD [address] [place] [address] 02/12/2025 3:30 PM EDT Telemedicine [address] [address] 03/12/2025 11:00 AM EDT Office Visit [address] [address] 04/05/2025 11:30 AM EDT Office Visit [address] [address] Audrey Calvo MD 230 [place] [address] 05/16/2025 11:00 AM EDT Office Visit [facility] ADULT DENTAL [address] [place] [address] Liya Perez documented as of this encounter Visit Diagnoses Not on filedocumented in this encounter Additional Health Concerns Assessment Noted Time PHQ-9 Depression Total Score: 3 02/14/20 24 1:55 PM EDT documented as of this encounter Care Teams Debridging Machine Operator Relationship Specialty Start Date End Date Audrey Calvo MD [address] [place], [place] [phone] PCP - General Family Medicine 05/09/17 documented as of this encounter
--- OUTSIDE RECORDS SUMMARY | 2025-02-01 08:30 | XMS_ITS | Encounter Summary ---
Author Organization [employer] Address 75 [facility] 7t [place] [address] Care Team Providers Care Funds Transfer Clerk Name Role Phone Audrey Calvo MD Primary Care Provider + Reason for Visit * Reason Comments Med Refill Encounter Details Date Type Department Care Team ([facility] st Contact Info) Description 07/06/2023 Refill [facility] [address] [place], [place] [phone] Audrey Calvo MD [address] [place] [address] Lumbago with sciatica, unspecified side Social History [...] Description 02/01/2025 12:00 PM EDT Office Visit [facility] MEDICINE [address] [place] [address] Audrey Calvo MD [address] [place] [address] 02/12/2025 3:30 PM EDT Telemedicine [address] [address] 03/12/2025 11:00 AM EDT Office Visit [address] [address] 04/05/2025 11:30 AM EDT Office Visit [address] [address] Audrey Calvo MD [address] [place] [address] 05/16/2025 11:00 AM EDT Office Visit [facility] ADULT DENTAL [address] [place] [address] Liya Perez documented as of this encounter Visit Diagnoses Diagnosis Lumbago with sciatica, unspecified side documented in this encounter Additional Health Concerns Assessment Noted Time PHQ-9 Depression Total Score: 0 12/23/19 23 9:08 AM EDT documented as of this encounter Care Teams Funds Transfer Clerk Relationship Specialty Start Date End Date Audrey Calvo MD 230 [place] [address] PCP - General Family Medicine 05/09/17 documented as of this encounter
--- OUTSIDE RECORDS SUMMARY | 2025-02-01 08:30 | XMS_ITS | Data Portability ---
Author Organization [employer] Address [address] [place] [address] Care Team Providers Care Grain Mill Products Inspector Name Role Phone HIM CCA OTHER Assessment Encounter Date Assessment Date Assessment LastModified by Organization Details LastModified Time 01/15/2025 01/15/2025 Evaluation in the field was performed by my flake or shred roll operator colleague, as noted above, I provided real-time [...] 025 04/29/20 25 [facility] - [facility], [address] [place] [address], [id number] 15:13:07 Referral None recorde d. Procedures None [...] Name and Address Organization Details Recorded Time 95059 aspirin medicatio n Not available Not available [...] Not Available Not Available No t Available [employer] [facility] 2 Sensor kit TEST BLOOD SUGAR [...] Details Last Updated DateTime 5 18 /min 06649.1 52 g 73 /min 98.6 [degF] 97 % 97 % 160.02 cm 118 mm[Hg] 62 mm[Hg] Not Available [employer] - production 13:38:24 Social History None recorded. Functional Status None recorded. Mental Status None recorded. Family History Nothing Reported. Medical History No medical history recorded. Gynecological HistoryNo gynecological history recorded. Obstetrics History GPAL:G 0 P 0 0 0 0 Past Encounters Encounter ID Performer Location Encounter Start Date Encounter Closed Date Diagnosis/Indication Diagnosis SNOMED-CT Code Diagnosis ICD10 Code Diagnosis Note [id number] Ginger Steele MD Main - [facility] [address] [place] [address] 01/15/2025 13:19:27 01/15/2025 15:05:54 Hyperglycemia 46806678 R73.9 Health Concerns Section Related Observation LastModified by Organization Detai ls LastModified Time None Recorded Concern Status LastModified by Organization Details LastModified Time None Recorded Advance Directives Directive None Recorded Payers Insurance Date Sequence Insurance Name Policy Number Policy Magana Covered Member ID Magana Member ID Guarantor Name 01/15/2025 1 [facility] - DOS ON OR AFTER 2022 - DUAL ELIGIBLE - DETENTION OPTIONS AND ONE CARE (MEDICARE REPLACEMENT/AD VANTAGE - HMO) Kalyani Ling [id number] Kalyani Ling Notes Date Note Type Note Provider Name and Address Organization Details Recorded Time 01/15/2025 text/html HPI: No certified court interpreter needed as this information writer speaks Australian. Call returned to Kalyani Rogers to triage [...] Tuesday. Pt states unable to come into [facility] or return to Urology office today. Agrees [...] ...................... ...................... ...................... ...................... ...................... ...................... ......... Manager Technical Support Note From Yadi Ness: Sent to a call for a pt complaining of high blood sugar and possible UTI. SC[facility] arrives on scene, pt is alert and oriented, airway is patent. Pt's primary language is [place]. Pt's family serves as certified court interpreter. Pt has history of DM2 and frequent [...] sugar and contacted clinic today, who called [facility] for a visit. Pt denies hartman, cp, sob, cough, runny nose, vomiting, diarrhea, hematuria, fever, or loc. BP:118/62, P:73, RR:18, SpO2:97%RA, T:98.6, B; Head: unremarkable; Lung sounds: clear bilaterally; Abdomen: soft, non-tender, no distention; Back: unremarkable; Extremities: unremarkable; Urine sample obtained; urine dip results: uploaded to [facility]. [facility] consulted and pt is advised to have labs drawn/obtained tomorrow, and follow up with PCP. Pt is reassured BG is not in an urgent/unsafe range. Pt advised urine dip: neg; Red flags discussed. Pt has no further questions. [facility] Lab Orders: glucose, fingerstick, blood: Performed ...................... ...................... ...................... ...................... ...................... ...................... ......... [facility] Consulted: Ginger Steele ...................... ...................... ...................... ...................... ...................... ...................... ......... Disposition: Fulfilled Ginger Steele MD [address] [place] [address],[address], [place], [address], [employer] 01/15/2025 14:53:12 OBGyn Episode No OBEpisode recorded.
--- OUTSIDE RECORDS SUMMARY | 2025-02-01 08:30 | XMS_ITS | Encounter Summary ---
Author Organization [employer] Address [address] [place] [address] Care Team Providers Care Bead Inspector Name Role Phone Audrey Calvo MD Primary Care Provider + Reason for Referral * Medications - Closed Specialty Diagnoses / Procedures Referred By Contac t Referred To Contact Diagnoses Type 2 diabetes mellitus with hyperglycemia, without long-term current use of insulin (CMS/HCC) Audrey Calvo MD [address] [place] [address] Phone: tel: fax: Referral ID Status Reason Start Date Expiration Date Visits Re quested Visits Authorized [id number] Closed 1 1 Encounter Details Date Type Department Care Team (Late st Contact Info) Description 01/31/2025 Refill [facility] MEDICINE [address] [place] [address] Audrey Calvo MD [address] [place] [address] Type 2 diabetes mellitus with hyperglycemia, without long-term current use of insulin (CMS/HCC) (Primary Dx) Social History Tobacco Use Types [...] Description 02/01/2025 12:00 PM EDT Office Visit [facility] MEDICINE [address] [place] [address] Audrey Calvo MD [address] [place] [address] 02/12/2025 3:30 PM EDT Telemedicine [facility] MED[facility] [address] [place] [address] 03/12/2025 11:00 AM EDT Office Visit [facility] [address] [place] [address] 04/05/2025 11:30 AM EDT Office Visit [facility] MED[facility] [address] [place] [address] Audrey Calvo MD [address] [place] [address] 05/16/2025 11:00 AM EDT Office Visit [facility] ADULT DENTAL [address] [place] [address] Liya Perez documented as of this encounter Visit Diagnoses Diagnosis Type 2 diabetes mellitus with hyperglycemia, without long-term current use of insulin ([facility])- Primary documented in this encounter Additional Health Concerns Assessment Noted Time PHQ-9 Depression Total Score: 0 12/27/19 25 1:57 PM EDT documented as of this encounter Care Teams Bead Inspector Relationship Specialty Start Date End Date Audrey Calvo MD [address] [place] [address] PCP - General Family Medicine 05/09/17 documented as of this encounter
--- OUTSIDE RECORDS SUMMARY | 2025-02-01 08:30 | XMS_ITS | Encounter Summary ---
Author Organization [employer] Address [address] [place] [address] [place] [address] Care Team Providers Care Manufacturing Worker Name Role Phone Audrey Calvo MD Primary Care Provider + Encounter Details Date Type Department Care Team (Late st Contact Info) Description 10/07/2022 Orders Only [facility] MEDICINE [address] [place] [address] Nila Gallardo LPN Social History Tobacco Use [...] Description 02/01/2025 12:00 PM EDT Office Visit [facility] MEDICINE [address] [place] [address] Audrey Calvo MD [address] [place] [address] 02/12/2025 3:30 PM EDT Telemedicine [facility] MEDICINE [address] [place] [address] 03/12/2025 11:00 AM EDT Office Visit [address] [address] 04/05/2025 11:30 AM EDT Office Visit [facility] [address] [place] [address] Audrey Calvo MD [address] [place] [address] 05/16/2025 11:00 AM EDT Office Visit [facility] ADULT DENTAL [address] [place] [address] Liya Perez documented as of this encounter Visit Diagnoses Not on filedocumented in this encounter Care Teams Manufacturing Worker Relationship Specialty Start Date End Date Audrey Calvo MD [address] [place] [address] PCP - General Family Medicine 05/09/17 documented as of this encounter
--- OUTSIDE RECORDS SUMMARY | 2025-02-01 08:30 | XMS_ITS | Encounter Summary ---
Author Organization [employer] Address 75 [facility] 7t [place] [address] Care Team Providers Care Lap Polisher Name Role Phone Audrey Cavlo MD Primary Care Provider + Encounter Details Date Type Department Care Team ([facility] st Contact Info) Description 06/29/2023 Orders Only [facility] CH[facility] MED & PEDS [address] [place], [place] [phone] Emi Gill LPN Social History Tobacco Use [...] 02/01/2025 12:00 PM EDT Office Visit [facility] MEDICINE [address] [place] [address] Audrey Calvo MD [address] [place] [address] 02/12/2025 3:30 PM EDT Telemedicine [address] [address] 03/12/2025 11:00 AM EDT Office Visit [address] [address] 04/05/2025 11:30 AM EDT Office Visit [address] [address] Audrey Calvo MD [address] [place] [address] 05/16/2025 11:00 AM EDT Office Visit [facility] ADULT DENTAL [address] [place] [address] Liya Perez documented as of this encounter Visit Diagnoses Not on filedocumented in this encounter Additional Health Concerns Assessment Noted Time PHQ-9 Depression Total Score: 0 12/23/19 23 9:08 AM EDT documented as of this encounter Care Teams Lap Polisher Relationship Specialty Start Date End Date Audrey Calvo MD [address] [place] [address] PCP - General Family Medicine 05/09/17 documented as of this encounter
--- OUTSIDE RECORDS SUMMARY | 2025-02-01 08:30 | XMS_ITS | Encounter Summary ---
Author Organization [employer] Address [address] [place] [address], [place] [address] Care Team Providers Care Registered Clinical Dietitian Name Role Phone Audrey Calvo MD Primary Care Provider + Reason for Visit * Reason Onset Date Comments chart prep 01/31/2025 Encounter Details Date Type Department Care Team ([facility] Contact Info) Description 01/31/2025 Telephone [facility] MEDICINE [address] [place] [address] Audrey Calvo MD [address] [place], [place] [phone] chart prep Social History Tobacco Use Types Packs/Day Years [...] the past 12 months, has t he [employer], gas, oil or water company threatened to [...] encounter Miscellaneous Notes * Telephone Encounter - Claudia Huddleston MA - 01/31/2025 10:05 AM EDT Chart Prep Labs: not done Albumin, Random Urine W/Creatinine (Order #[id number]) on 01/11/25 Images: done Referrals: complete ( Ortho appt 02/26/25, [facility] appt 03/21/25 and urology appt 07/15/25. Vaccines due: Covid, RSV, and Zoster Screenings: eye exam Overdue care gaps: Glucose, PHQ-9, LG-7, and Tobacco documented in this encounter Plan of Treatment Upcoming Encounters Date Type Department Care Team (Late st Contact Info) Description 02/01/2025 12:00 PM EDT Office Visit [facility] MEDICINE [address] [place] [address] Audrey Calvo MD [address] [place] [address] 02/12/2025 3:30 PM EDT Telemedicine [facility] MEDICINE [address] [place] [address] [phone] 03/12/2025 11:00 AM EDT Office Visit [address] [address] 04/05/2025 11:30 AM EDT Office Visit [facility] MEDICINE [address] [place] [address] [phone] Audrey Calvo MD [address] [place] [address] 05/16/2025 11:00 AM EDT Office Visit [facility] ADULT DENTAL [address] [place] [address] [phone] Liya Perez documented as of this encounter Visit Diagnoses Not on filedocumented in this encounter Additional Health Concerns Assessment Noted Time PHQ-9 Depression Total Score: 0 12/27/19 25 1:57 PM EDT documented as of this encounter Care Teams Registered Clinical Dietitian Relationship Specialty Start Date End Date Audrey Calvo MD [address] [place] [address] PCP - General Family Medicine 05/09/17 documented as of this encounter
--- OUTSIDE RECORDS SUMMARY | 2025-02-01 08:30 | XMS_ITS | Encounter Summary ---
Author Organization [employer] Address [address] [place] [address] Care Team Providers Care Beam Department Supervisor Name Role Phone Audrey Calvo MD Primary Care Provider + Reason for Visit * Reason Onset Date Comments Care Coordination 01/29/2025 Encounter Details Date Type Department Care Team ([facility] st Contact Info) Description 01/29/2025 Telephone [facility] MEDICINE [address] [place] [address] Enedelia Jolley, PharmD [address] [place] [address] Care Coordination Social History Tobacco Use Types Packs/Day Years [...] the past 12 months, has t he [employer], gas, oil or water [employer] threatened to shut off services in your [...] encounter Miscellaneous Notes * Telephone Encounter - Aretha Segundo RN - 01/30/2025 8:53 AM EDT Noted. RN called patient [phone] to schedule a sooner appointment with PCP to discuss pain management plan. Patient currently taking daily pregabalin, lidocaine patches, and Percocet however patient is taking more percocet than Rx'd (TID instead of BID). Patient agreed to a sooner appointment with PCP on 02/01 at noon. Patient advised to take percocet as Rx'd (BID) until advised differently by PCP. Patient to f/u PRN. documented in this encounter Plan of Treatment Upcoming Encounters Date Type Department Care Team (Late st Contact Info) Description 02/01/2025 12:00 PM EDT Office Visit [facility] MEDICINE [address] [place] [address] Audrey Calvo MD [address] [place] [address] 02/12/2025 3:30 PM EDT Telemedicine [facility] MEDICINE [address] [place], [place] [address] [address] 03/12/2025 11:00 AM EDT Office Visit [facility] MEDICINE [address] [place] [address] 04/05/2025 11:30 AM EDT Office Visit [facility] MEDICINE [address] [place] [address] Audrey Calvo MD [address] [place] [address] 05/16/2025 11:00 AM EDT Office Visit [facility] ADULT DENTAL [address] [place] [address] [phone] Liya Perez documented as of this encounter Visit Diagnoses Not on filedocumented in this encounter Additional Health Concerns Assessment Noted Time PHQ-9 Depression Total Score: 0 12/27/19 25 1:57 PM EDT documented as of this encounter Care Teams Beam Department Supervisor Relationship Specialty Start Date End Date Audrey Calvo MD [address] [place] [address] PCP - General Family Medicine 05/09/17 documented as of this encounter
--- OUTSIDE RECORDS SUMMARY | 2025-02-01 08:30 | XMS_ITS | Encounter Summary ---
Author Organization [employer] Address [address] [facility] 7t [place] [address] Care Team Providers Care Medical Assistant Instructor Name Role Phone Audrey Calvo MD Primary Care Provider + Encounter Details Date Type Department Care Team ([facility] Contact Info) Description 01/30/2025 Results Follow-Up [facility] [address] [place] [address] Audrey Calvo MD [address] [place] [address] Referral to Audiology Social History Tobacco Use Types Packs/Day Years [...] Encounter Note - Audrey Calvo MD - 01/30/2025 5:29 PM EDT Audiology evaluation on 01/29/2025 reviewed, patient has asymmetric hearing loss and will need ENT evaluation. Will discuss this with her at the upcoming appointment on 02/01/2025 documented in this encounter Plan of Treatment Upcoming Encounters Date Type Department Care Team (Late st Contact Info) Description 02/01/2025 12:00 PM EDT Office Visit [facility] MEDICINE [address] [place] [address] Audrey Calvo MD [address] [place] [address] 02/12/2025 3:30 PM EDT Telemedicine [address] [address] 03/12/2025 11:00 AM EDT Office Visit [facility] MEDICINE [address] [place] [address] 04/05/2025 11:30 AM EDT Office Visit [facility] MEDICINE [address] [place] [address] Audrey Calvo MD 230 [place] [address] 05/16/2025 11:00 AM EDT Office Visit [facility] ADULT DENTAL [address] [place] [address] Liya Perze documented as of this encounter Visit Diagnoses Not on filedocumented in this encounter Additional Health Concerns Assessment Noted Time PHQ-9 Depression Total Score: 0 12/27/19 25 1:57 PM EDT documented as of this encounter Care Teams Medical Assistant Instructor Relationship Specialty Start Date End Date Audrey Calvo MD [address] [place] [address] PCP - General Family Medicine 05/09/17 documented as of this encounter
--- OUTSIDE RECORDS SUMMARY | 2025-02-01 08:31 | XMS_ITS | Encounter Summary ---
Author Organization [employer] Address [address] [place] [address] 7 [place] [address] Care Team Providers Care Machine Hostler Name Role Phone Audrey Calvo MD Primary Care Provider + Reason for Visit * Reason Comments Med Refill Encounter Details Date Type Department Care Team ([facility] st Contact Info) Description 01/02/2025 Refill [facility] MEDICINE [address] [place] [address] Audrey Calvo MD [address] [place] [address] Social History Tobacco Use Types Packs/Day Years [...] 12:00 PM EDT Office Visit [facility] MEDICINE [address] [place] [address] Audrey Calvo MD [address] [place] [address] 02/12/2025 3:30 PM EDT Telemedicine [facility] MEDICINE [address] [place] [address] 03/12/2025 11:00 AM EDT Office Visit [facility] MEDICINE [address] [place] [address] 04/05/2025 11:30 AM EDT Office Visit [facility] MEDICINE [address] [place] [address] Audrey Calvo MD [address] [place] [address] 90[address] 05/16/2025 11:00 AM EDT Office Visit [facility] ADULT DENTAL [address] [place] [address] [place] [address] Liya Perez documented as of this encounter Visit Diagnoses Not on filedocumented in this encounter Additional Health Concerns Assessment Noted Time PHQ-9 Depression Total Score: 0 12/27/19 25 1:57 PM EDT documented as of this encounter Care Teams Machine Hostler Relationship Specialty Start Date End Date Audrey Calvo MD [address] [place] [address] PCP - General Family Medicine 05/09/17 documented as of this encounter
--- OUTSIDE RECORDS SUMMARY | 2025-02-01 08:31 | XMS_ITS | Encounter Summary ---
Author Organization [employer] Address [address] [place] [address] [place] [address] Care Team Providers Care Attendance Secretary Name Role Phone Audrey Calvo MD Primary Care Provider + Encounter Details Date Type Department Care Team (Late st Contact Info) Description 10/26/2022 Orders Only [facility] MEDICINE [address] [place] [address] [phone] Nila Gallardo LPN Social History Tobacco Use [...] Description 02/01/2025 12:00 PM EDT Office Visit [facility] MEDICINE [address] [place] [address] [phone] Audrey Calvo MD [address] [place] [address] 02/12/2025 3:30 PM EDT Telemedicine [facility] MEDICINE [address] [place] [address] [phone] 03/12/2025 11:00 AM EDT Office Visit [facility] [place] [address] 04/05/2025 11:30 AM EDT Office Visit [facility] [place] [address] Audrey Calvo MD [address] [place] [address] 05/16/2025 11:00 AM EDT Office Visit [facility] [address] Liya Perez documented as of this encounter Procedures Procedure Name Priority Date/Time Associated Diagnosis Comments BI MAMMOGRAM SCREENING TOMOSYNTHESIS BILATERAL Routine 11/09/2022 8:12 AM EST documented in this encounter Results * BI Mammogram Screening Tomosynthesis Bilateral (11/09/2022 8:12 AM EST) Anatomical Region Laterality Modality Breast Bilateral Mammography 11/09/2022 8:12 AM EST Narrative 11/10/2022 8:58 AM EST ? [facility] [place] ? [address] ?[place] [address] ? Mammography Report ? Signed ? Patient: Sue,Kalyani Dubon ?MR#: [id number] ?? 81 ? : 1955 ?Acct:[id number] ? Age/Sex: 67 / F ?ADM Date: //23 ? Loc: HO.MAMMO ? Attending Dr: Audrey Calvo MD ? Ordering Physician: Audrey Calvo MD ?Results: 1Ne ?? gative ? Date of Service: 11/09/22 ?Follow Up: 1 Year From Orig ?? inal Mammogram ? Procedure(s): MM tomosynthesis screening BI ?? Accession Number(s): [id number] ? cc: Audrey Calvo MD ? EXAMINATION: [...] MD in OV> ?11/10/22 08 ? DD/ 08 ? TD/TT: ? Reel Fed Printer: SK ? Procedure Note Ismael, Image - 11/10/20[facility] [place] [address] Mammography Report Signed Patient: Kalyani [facility]#: [id number] 83 : 7Acct:[id number] Age/Sex: 67 / FADM Date: 11/09/22 Loc: HO.MAMMO Attending Dr: Audrey Calvo MD Ordering Physician: Audrey Calvo MDResults: 1Ne gative Date of Service: 11/09/22Follow Up: 1 Year From Orig inal Mammogram Procedure(s): MM tomosynthesis screening BI Accession Number(s): [id number] cc: Audrey Calvo MD EXAMINATION: MM SCREENING [...] in OV> 11/10/22 0855 DD/ 0812 TD/TT: Reel Fed Printer: [facility] External Provider IMG BI PROCEDURES Edited Result - Final documented in this encounter Visit Diagnoses Not on filedocumented in this encounter Care Teams Attendance Secretary Relationship Specialty Start Date End Date Audrey Calvo MD [address] [place] [address] PCP - General Family Medicine 05/09/17 documented as of this encounter
--- OUTSIDE RECORDS SUMMARY | 2025-02-01 08:31 | XMS_ITS | Encounter Summary ---
Author Organization [employer] Address [address] [place] [address] [place], [place] [address] Care Team Providers Care Project Executive Name Role Phone Audrey Calvo MD Primary Care Provider + Encounter Details Date Type Department Care Team (Latest Contact Info) Description 01/31/2019 Abstract [facility] CONVERSIONS Dental, Provider, DDS Social History [...] Care Team ( st Contact Info) Description 02/01/2025 12:00 PM EDT Office Visit [facility] MEDICINE [address] [place] [address] Audrey Calvo MD [address] [place] [address] 02/12/2025 3:30 PM EDT Telemedicine [address] [address] 03/12/2025 11:00 AM EDT Office Visit [address] [address] 04/05/2025 11:30 AM EDT Office Visit [address] [address] Audrey Calvo MD 230 [place] [address] 05/16/2025 11:00 AM EDT Office Visit [facility] ADULT DENTAL [address] [place] [address] Liya Perez documented as of this encounter Visit Diagnoses Not on filedocumented in this encounter Care Teams Project Executive Relationship Specialty Start Date End Date Audrey Calvo MD [address] [place] [address] PCP - General Family Medicine 05/09/17 documented as of this encounter
--- OUTSIDE RECORDS SUMMARY | 2025-02-01 08:31 | XMS_ITS | Encounter Summary ---
Author Organization [employer] Address [address] [facility] 7t [place] [address] Care Team Providers Care Business Office Manager Name Role Phone Audrey Calvo MD Primary Care Provider + Encounter Details Date Type Department Care Team ([facility] st Contact Info) Description 12/02/2023 Telephone [facility] MEDICINE [address] [place], [place] [phone] Audrey Calvo MD [address] [place] [address] Social History Tobacco Use Types Packs/Day Years [...] 12:00 PM EDT Office Visit [facility] MEDICINE [address] [place] [address] Audrey Calvo MD [address] [place] [address] 02/12/2025 3:30 PM EDT Telemedicine [address] [address] 03/12/2025 11:00 AM EDT Office Visit [address] [address] 04/05/2025 11:30 AM EDT Office Visit [address] [address] Audrey Calvo MD [address] [place] [address] 05/16/2025 11:00 AM EDT Office Visit [facility] ADULT DENTAL [address] [place] [address] Liya Perez documented as of this encounter Visit Diagnoses Not on filedocumented in this encounter Additional Health Concerns Assessment Noted Time PHQ-9 Depression Total Score: 0 12/23/19 23 9:08 AM EDT documented as of this encounter Care Teams Business Office Manager Relationship Specialty Start Date End Date Audrey Calvo MD [address] [place] [address] PCP - General Family Medicine 05/09/17 documented as of this encounter
--- OUTSIDE RECORDS SUMMARY | 2025-02-01 08:32 | XMS_ITS | Encounter Summary ---
Author Organization [employer] Address [address] [facility] 7t [place] [address] Care Team Providers Care Administrative Tech Name Role Phone Audrey Calvo MD Primary Care Provider + Encounter Details Date Type Department Care Team ([facility] Contact Info) Description 09/06/2024 Telephone [facility] MEDICINE [address] [place], [place] [phone] Audrey Calvo MD [address] [place] [address] Social History Tobacco Use Types Packs/Day Years [...] Description 02/01/2025 12:00 PM EDT Office Visit [facility] MEDICINE [address] [place] [address] Audrey Calvo MD [address] [place] [address] 02/12/2025 3:30 PM EDT Telemedicine [facility] MEDICINE [address] [place] [address] 03/12/2025 11:00 AM EDT Office Visit [facility] MEDICINE [address] [place] [address] 04/05/2025 11:30 AM EDT Office Visit [facility] MEDICINE [address] [place] [address] Audrey Calvo MD [address] [place] [address] 05/16/2025 11:00 AM EDT Office Visit [facility] ADULT DENTAL [address] [place] [address] Liya Perez documented as of this encounter Visit Diagnoses Not on filedocumented in this encounter Additional Health Concerns Assessment Noted Time PHQ-9 Depression Total Score: 3 02/14/20 24 1:55 PM EDT documented as of this encounter Care Teams Administrative Tech Relationship Specialty Start Date End Date Audrey Calvo MD [address] [place] [address] PCP - General Family Medicine 05/09/17 documented as of this encounter
--- OUTSIDE RECORDS SUMMARY | 2025-02-01 08:32 | XMS_ITS | Encounter Summary ---
Author Organization [employer] Address [address] [place] [address] 7 [place] [address] Care Team Providers Care Intake Manager Name Role Phone Audrey Calvo MD Primary Care Provider + Reason for Visit * Reason Comments Med Refill Encounter Details Date Type Department Care Team ([facility] st Contact Info) Description 09/20/2024 Refill [facility] MEDICINE [address] [place], [place] [phone] Audrey Calvo MD [address] [place], [place] [phone] Chronic rhinitis Social History Tobacco Use Types [...] 12:00 PM EDT Office Visit [facility] MEDICINE [address] [place] [address] Audrey Calvo MD [address] [address] 02/12/2025 3:30 PM EDT Telemedicine [address] [address] 03/12/2025 11:00 AM EDT Office Visit [facility] MEDICINE [address] [place] [address] 04/05/2025 11:30 AM EDT Office Visit [facility] MEDICINE [address] [place] [address] Audrey Calvo MD [address] [address] 05/16/2025 11:00 AM EDT Office Visit [facility] ADULT DENTAL [address] [place] [address] Liya Perez documented as of this encounter Visit Diagnoses Diagnosis Chronic rhinitis documented in this encounter Additional Health Concerns Assessment Noted Time PHQ-9 Depression Total Score: 3 02/14/20 24 1:55 PM EDT documented as of this encounter Care Teams Intake Manager Relationship Specialty Start Date End Date Audrey Calvo MD [address] [place] [address] PCP - General Family Medicine 05/09/17 documented as of this encounter
--- OUTSIDE RECORDS SUMMARY | 2025-02-01 08:32 | XMS_ITS | Encounter Summary ---
Author Organization [employer] Address [address] [place] [address] [place] [address] Care Team Providers Care Accounting File Clerk Name Role Phone Audrey Calvo MD Primary Care Provider + Encounter Details Date Type Department Care Team (Late st Contact Info) Description 09/27/2022 Orders Only [facility] MED & PEDS [address] [place] [address] Emi Gill LPN Social History Tobacco Use [...] Department Care Team (Late Contact Info) Description 02/01/2025 12:00 PM EDT Office Visit [address] [address] Audrey Calvo MD [address] [place] [address] 02/12/2025 3:30 PM EDT Telemedicine [address] [address] 03/12/2025 11:00 AM EDT Office Visit [address] [address] 04/05/2025 11:30 AM EDT Office Visit [facility] MEDICINE [address] [place] [address] Audrey Calvo MD [address] [place] [address] 05/16/2025 11:00 AM EDT Office Visit [facility] ADULT DENTAL 230 [place], [place] [phone] Liya Perez documented as of this encounter Visit Diagnoses Not on filedocumented in this encounter Care Teams Accounting File Clerk Relationship Specialty Start Date End Date Audrey Calvo MD [address] [place], [place] [phone] PCP - General Family Medicine 05/09/17 documented as of this encounter
--- OUTSIDE RECORDS SUMMARY | 2025-02-01 08:32 | XMS_ITS | Encounter Summary ---
Author Organization [employer] Address [address] [place] [address] [place], [place] [address] Care Team Providers Care Biogeographer Name Role Phone Audrey Calvo MD Primary Care Provider + Reason for Referral * Consultation (Routine) - Canceled Specialty Diagnoses / Procedures Referred By Contgalen t Referred To Contact Pharmacy Diagnoses Primary hypertension Audrey Calvo MD [address] [place] [address] Phone: tel: fax: Referral ID Status Reason Start Date Expiration Date V isits Requested Visits Authorized [id number] Canceled Continuity of Care 01/10/2025 01/10/2026 6 6 Encounter Details Date Type Department Care Team (Late st Contact Info) Description 01/09/[address] [facility] MEDICINE [address] [place] [address] [phone] Audrey Calvo MD [address] [place], [place] [phone] Primary hypertension (Primary Dx) Social History Tobacco [...] Description 02/01/2025 12:00 PM EDT Office Visit [facility] MEDICINE [address] [place] [address] Audrey Calvo MD [address] [place] [address] 02/12/2025 3:[address] [facility] MEDICINE [address] [place] [address] 03/12/2025 11:00 AM EDT Office Visit [facility] [place] [address] 04/05/2025 11:30 AM EDT Office Visit [facility] [place] [address] Audrey Calvo MD [address] [place] [address] 05/16/2025 11:00 AM EDT Office Visit [facility] [place] [address] Liya Perez Scheduled Referrals Name Type Priority [...] EDT Narrative 01/27/2025 9:44 PM EDT ? [facility] [place] ? [address] ?[place] [address] ?[phone] ? Mammography Report ? Signed ? Patient: Sue,Kalyani I ?MR#: [id number] ?? 83 ? : 1955 ?Acct:[id number] ? Age/Sex: 69 / F ?ADM Date: 05/06/25 ? Loc: HO.MAMMO ? Attending Dr: Audrey Calvo MD ? Ordering Physician: Audrey Calvo MD ?Results: 1Ne ?? gative ? Date of Service: 01/22/25 ?Follow Up: 1 Year From Orig ?? inal Mammogram ? Procedure(s): MM tomosynthesis screening BI ?? Accession Number(s): [id number] ? cc: Audrey Calvo MD; Srinivas Prasad [...] DD/ 0900 ? TD/TT: 01/22/25 0922 ? Office Services Clerk: ? Procedure Note Donotuseinterpreter, Image - 01/27/2025 [facility] [address] [place] [address] Mammography Report Signed Patient: Kalyani Rogers IMR#: [id number] 83 : 7Acct:[id number] Age/Sex: 69 / FADM Date: 01/22/25 Loc: HO.MAMMO Attending Dr: Audrey Calvo MD Ordering Physician: Audrey Calvo MDResults: 1Ne gative Date of Service: 01/22/25Follow Up: 1 Year From Orig inal Mammogram Procedure(s): MM tomosynthesis screening BI Accession Number(s): [id number] cc: Audrey Calvo MD; Name,Srinivas COOK EXAMINATION: [...] by Ita Copeland DO in OV> 01/27/25 214 DD/ 09 TD/TT: 01/22/25 09 Office Services Clerk: us Audrey Calvo MD IMG BI PROCEDURES Final Result documented in this encounter Visit Diagnoses Diagnosis Primary hypertension- Primary Unspecified essential hypertension documented in this encounter Additional Health Concerns Assessment Noted Time PHQ-9 Depression Total Score: 0 12/27/19 25 1:57 PM EDT documented as of this encounter Care Teams Biogeographer Relationship Specialty Start Date End Date Audrey Calvo MD [address] [place] [address] PCP - General Family Medicine 05/09/17 documented as of this encounter
--- OUTSIDE RECORDS SUMMARY | 2025-02-01 08:32 | XMS_ITS | Encounter Summary ---
Author Organization [employer] Address [address] [facility] 7t [place] [address] Care Team Providers Care Tooth Cutter Spur Name Role Phone Audrey Calvo MD Primary Care Provider + Reason for Visit * Reason Comments Med Refill Encounter Details Date Type Department Care Team ([facility] st Contact Info) Description 01/09/2025 Refill [facility] [address] [place] [address] Audrey Calvo MD 230 [place] [address] Achilles tendinitis of right lower extremity Social [...] the past 12 months, has t he [employer], gas, oil or water company threatened to [...] 12:00 PM EDT Office Visit [facility] MEDICINE [address] [place] [address] Audrey Calvo MD [address] [place] [address] 02/12/2025 3:30 PM EDT Telemedicine [address] [address] 03/12/2025 11:00 AM EDT Office Visit [address] [address] 04/05/2025 11:30 AM EDT Office Visit [address] [address] Audrey Calvo MD [address] [place] [address] 05/16/2025 11:00 AM EDT Office Visit [facility] ADULT DENTAL [address] [place] [address] Liya Perez documented as of this encounter Visit Diagnoses Diagnosis Achilles tendinitis of right lower extremity documented in this encounter Additional Health Concerns Assessment Noted Time PHQ-9 Depression Total Score: 0 12/27/19 25 1:57 PM EDT documented as of this encounter Care Teams Tooth Cutter Spur Relationship Specialty Start Date End Date Audrey Calvo MD 230 [place] [address] PCP - General Family Medicine 05/09/17 documented as of this encounter
--- OUTSIDE RECORDS SUMMARY | 2025-02-01 08:33 | XMS_ITS | Encounter Summary ---
Author Organization [employer] Address [address] [place] [address] Care Team Providers Care Maintenance Leader Name Role Phone Audrey Calvo MD Primary Care Provider + Reason for Visit * Reason Comments Med Refill Encounter Details Date Type Department Care Team ([facility] Contact Info) Description 03/31/[address] [facility] MEDICINE [address] [place] [address] [phone] Audrey Calvo MD [address] [place], [place] [phone] HTN (hypertension), benign Social History Tobacco Use [...] Upcoming Encounters Date Type Department Care Team ([facility] Contact Info) Description 02/01/2025 12:00 PM EDT Office Visit [facility] MEDICINE [address] [place] [address] [phone] Audrey Calvo MD [address] [place] [address] 02/12/2025 3:[address] [facility] MEDICINE [address] [place] [address] 03/12/2025 11:00 AM EDT Office Visit [address] [phone] 04/05/2025 11:30 AM EDT Office Visit [facility] MEDICINE [address] [place] [address] [phone] Audrey Calvo MD [address] [place] [address] 05/16/2025 11:00 AM EDT Office Visit [facility] ADULT DENTAL [address] [place] [address] [phone] Liya Perez documented as of this encounter Visit Diagnoses Diagnosis HTN (hypertension), benign Essential hypertension, benign documented in this encounter Additional Health Concerns Assessment Noted Time PHQ-9 Depression Total Score: 0 12/23/19 23 9:08 AM EDT documented as of this encounter Care Teams Maintenance Leader Relationship Specialty Start Date End Date Audrey Calvo MD [address] [place] [address] PCP - General Family Medicine 05/09/17 documented as of this encounter
--- OUTSIDE RECORDS SUMMARY | 2025-02-01 08:33 | XMS_ITS | Clinical Summary ---
Author Organization [employer] Address [address] [place] [address] 7[address] [place] [address] Care Team Providers Care Production Grader Name Role Phone Audrey Calvo MD Primary Care Provider + Allergies Active Allergy Reactions Criticality Noted Date Comments Aspirin 08/15/2018 Gramineae Pollens Shortness of breath High 3 Medications FREESTYLE LITE test stripIndications :Type 2 diabetes mellitus with unspecified complications ([facility]) TEST BLOOD SUGAR TWICE DAILY 100 strip 11 023 Active TRUEplus Lancets 33G miscIndications: Type 2 diabetes mellitus with unspecified complications ([facility]) TEST BLOOD SUGAR TWICE DAILY 100 each 11 023 Active insulin pen needle (UltiGuard SafePack Pen Needle) 32G x 4 mm misc Use once daily 100 each 4 024 Active Lantus SoloStar 100 UNIT/ML penIndications:T ype 2 diabetes mellitus with hyperglycemia, without long-term current use of insulin ([facility]) Inject 15 units subcutaneously every evening 3 [...] monitor blood pressure at home 1 kit Active Continuous Glucose Database Modeler (Smarter RemarketerStObjectVideo Marcos 2 [place]) deviceIndication s:Type 2 diabetes mellitus with hyperglycemia, without long-term current use of insulin ([facility]) Use to scan sensor every 8 hours as directed 1 each 025 Active albuterol 108 (90 Base) MCG/ACT [...] MOUTH EVERY MORNING 90 tablet 3 025 2024 Discontinued(N on-compliance) cholecalciferol (D3 Super Strength) [...] audiology testing and follow-up with me after manager terminal current use of opiate analgesic 2023 Overview (10/18/2024): Medication: Percocet 10-325mg Q12H PRN Indication: cervical spondylosis, bilat knee OA Last ELECTRIC DRILL OPERATOR Agreement: 10/16/24 Tier III (ELECTRIC DRILL OPERATOR visit every 4-6 months) Assessment & Plan [...] Normal DEXA: 12/07/2022: Normal Pap: referred to HISTORIOGRAPHY TEACHER by PCP Colonoscopy 08/28/2019 Dr Howard Assessment & Plan (01/01/2025 4:52 PM EDT): Patient will call HISTORIOGRAPHY TEACHER to reschedule Pap smear, I will follow-up [...] with dietitian from weight management program with [facility] ct scan to fu renal abcess is [...] , patient wants to be referred to HISTORIOGRAPHY TEACHER. Mammogram Overdue, I will schedule mammo. Bone [...] scheduled for PAP smear, will refer to eligibility clerk Mammogram: up to date, next one due [...] between Reminded Pt to be compliant with ELECTRIC DRILL OPERATOR Tubular adenoma of colon 07/17/2018 Calcaneal spur [...] on 08/2023, rx for CPAP sent to [facility] on 11/03/23 Patient will fu with [facility] CM re provider for CPAP She's aware that [...] of multiple topical analgesics after discussion with [facility] Pharmacist - meds sent to pharmacy [...] on oxycodone PRN Continue close fu with ELECTRIC DRILL OPERATOR program We have done [employer] education re [...] Encounters Date Type Department Care Team Description 01/31/2025 Refill [facility] [address] [place] [address] Audrey Calvo MD Type 2 diabetes mellitus with hyperglycemia, without long-term current use of insulin (CMS/HCC) (Primary Dx) 01/31/2025 Telephone [facility] [address] [place] [address] Audrey Calvo MD chart prep 01/30/2025 Results Follow-Up [facility] [address] [place] [address] Audrey Calvo MD Referral to Audiology 01/29/2025 1:00 PM EDT Clinical Support [facility] [address] [place] [address] Enedelia Jolley PharmD Primary hypertension (Primary Dx); Type 2 diabetes mellitus with hyperglycemia, without long-term current use of insulin (CMS/HCC); Hyperlipidemia, unspecified hyperlipidemia type; Other chronic pain; Asthma, unspecified asthma severity, unspecified whether complicated, unspecified whether persistent 01/29/2025 Telephone [facility] [address] [place] [address] Enedelia Jolley PharmD Care Coordination 01/15/2025 Refill [facility] [address] [place] [address] Audrey Calvo MD Primary hypertension 01/11/2025 Refill [facility] [address] [place] [address] Audrey Calvo MD 01/11/2025 Travel 01/10/2025 9:30 AM EDT Office Visit [facility] [address] [place] [phone] Wes Huffman MD Decreased hearing of both ears (Primary Dx); Routine physical examination 01/10/2025 Refill [facility] [address] [place] [address] Tiara Roper MD 01/10/2025 Travel 01/09/2025 Refill [facility] [address] [place] [address] Audrey Calvo MD Achilles tendinitis of right lower extremity 01/09/2025 Orders Only [facility] [address] [place] [phone] Audrey Calvo MD Primary hypertension (Primary Dx) 01/08/2025 11:00 AM EDT Clinical Support [facility] [address] [place] [address] Lola Garcia, ZBIGNIEW Other chronic pain (Primary Dx); manager terminal (current) use of opiate analgesic 01/08/2025 Refill [facility] [address] [place] [address] Lola Garcia, ZBIGNIEW Achilles tendinitis of right lower extremity 01/08/2025 Telephone [facility] [address] [place] [address] Audrey Calvo MD medication 01/08/2025 Telephone [facility] [address] [place] [address] Audrey Calvo MD medication 01/08/2025 Travel 01/04/2025 Telephone [facility] [address] [place] [address] Audrey Calvo MD Follow-up 01/03/[address] [address] Audrey Calvo MD March01/02/[address] [address] Audrey Calvo MD Durable Medical Equipment 01/02/[address] [address] Audrey Calvo MD 12/26/2024 2:15 PM EDT Office Visit [address] [address] Audrey Calvo MD Primary hypertension (Primary Dx); Type 2 diabetes mellitus with hyperglycemia, without long-term current use of insulin ([facility]); Primary osteoarthritis of left knee; Stress incontinence of urine; Calcaneal spur of left foot; Bilateral hearing loss, unspecified hearing loss type; Routine Papanicolaou smear; Encounter for preventive health examination 12/26/2024 Travel 12/25/[address] [address] Audrey Calvo MD Chart prep 12/12/[address] [address] Audrey Calvo MD Reschedule 12/12/2024 Travel 12/11/2024 Refill [facility] [address] [place], [place] [phone] Audrey Calvo MD Achilles tendinitis of right lower extremity 12/11/[address] [phone] Audrey Calvo MD Appointment Request 11/13/2024 10:40 AM EST Office Visit [facility] [address] [place] [address] Srinivas Prasad MD UTI symptoms (Primary Dx); Recurrent UTI; UTI due to extended-spectrum beta lactamase (ESBL) producing Escherichia coli 11/13/2024 Telephone [facility] [address] [place] [address] Audrey Calvo MD Durable Medical Equipment 11/13/2024 Telephone [facility] [address] [place] [address] Audrey Calvo MD Nurse Triage 11/08/2024 Refill [facility] [address] [place] [address] Audrey Calvo MD Achilles tendinitis of right lower extremity from Last 3 Months Immunizations Immunization Administration Dates Next Due Influenza High-dose Quadriva [...] reading Pulse 75 01/29/2025 1:32 PM EDT patient reported - at home reading Temperature 36 ??C (96.8 ??F) 01/10/2025 9:1 6 AM EDT Respiratory Rate 18 01/10/2025 9:16 AM EDT Oxygen Saturation 98% 01/10/2025 9:5 2 AM EDT Inhaled Oxygen Concentration - - Weight 87.5 kg (192 lb 12.8 oz) 01/10/2025 9:16 AM EDT Height 162.6 cm (5' 4 ) 01/10/2025 9:16 AM EDT Body Mass Index 33.09 01/10/2025 9:16 AM EDT Plan of Treatment Upcoming Encounters Date Type Department Care Team (Late st Contact Info) Description 02/01/2025 12:00 PM EDT Office Visit [facility] [address] [place] [place] [address] [phone] Audrey Calvo MD [address] [place] [address] [phone] 02/12/2025 3:30 PM EDT Telemedicine [address] [phone] 03/12/2025 11:00 AM EDT Office Visit [address] [phone] 04/05/2025 11:30 AM EDT Office Visit [address] [phone] Audrey Calvo MD [address] [place], [place] [phone] 05/16/2025 11:00 AM EDT Office Visit [facility] [address] [place] [address] [phone] Liya Perez Health Maintenance Due Date Last Done Comments CT Colonography 1957 FIT DNA/Cologuard 1957 FIT 1957 FOBT 1957 Sigmoidoscopy 1957 Eye Exam 1967 Hepatitis C Screening 1975 RSV Patients and Patients Aged 60 years or older (1 - Risk 60-74 years 1-dose series) 2017 Diabetes: Urine Protein Screening 03/02/2022 03/02/2021, 08/08/2020 Zoster Vaccines (3 of 3) 02/17/2024 12/23/2023, 02/2019 COVID-19 Vaccine ( - season) 2024 08/02/2022, 03/05/2021, 02/05/2021 Dental Oral [...] patient's age to complete this topic Meningococcal B Vaccine Aged Out No l onger eligible based on patient's age to complete [...] Procedure Name Priority Date/Time Associated Diagnosis Comments AMB REFERRAL TO AUDIOLOGY Routine 01/29/2025 Bilateral hearing loss, unspecified hearing loss type BI MAMMOGRAM SCREENING TOMOSYNTHESIS BILATERAL Routine 01/22/2025 9:00 AM EDT POCT CHIQUITA-14 URINE DRUG SCREEN Routine 01/08/2025 11:33 AM EDT Other chronic pain jail (current) use of opiate analgesic POCT GLYCATED HEMOGLOBIN, TOTAL Routine 12/26/2024 1:59 PM EDT Type 2 diabetes mellitus with hyperglycemia, without long-term current use of insulin ([facility]) POCT GLUCOSE Routine 12/26/2024 1:58 PM EDT Type 2 diabetes mellitus with hyperglycemia, without long-term current use of insulin ([facility]) CULTURE, URINE, ROUTINE Routine 11/13/2024 10:56 AM [...] Recently Relevant to Health Maintenance Results * Referral to Audiology (01/29/2025) us Audrey Calvo MD OUTPATIENT REFERRAL DAMASO KRISHNAMURTHY Final Result * BI Mammogram Screening Tomosynthesis Bilateral (01/22/2025 9:00 AM EDT) Anatomical Region Laterality Modality Breast Bilateral Mammography 01/22/2025 9:00 AM EDT Narrative 01/27/2025 9:44 PM EDT ? [facility] [place] ? [address] ?[place] [address] ?[phone] ? Mammography Report ? Signed ? Patient: Kalyani Rogers I ?MR#: [id number] ?? 81 ? : 1955 ?Acct:[id number] ? Age/Sex: 69 / F ?ADM Date: 01/22/25 ? Loc: HO.MAMMO ? Attending Dr: Audrey Calvo MD ? Ordering Physician: Audrey Calvo MD ?Results: 1Ne ?? gative ? Date of Service: 01/22/25 ?Follow Up: 1 Year From Orig ?? inal Mammogram ? Procedure(s): MM tomosynthesis screening BI ?? Accession Number(s): [id number] ? cc: Audrey Calvo MD; Srinivas Prasad [...] 2141 ? DD/ 0900 ? TD/TT: 01/22/25 09 ? Color Buffer: ? Procedure Note Ricky Guevara - 01/27/2025 [facility] [address] [place] [address] [place] [address] Mammography Report Signed Patient: Kalyani Rogers [facility]#: [id number] [birth year] : 7Acct:[id number] Age/Sex: 69 / FADM Date: 01/22/25 Loc: HO.MAMMO Attending Dr: Audrey Calvo MD Ordering Physician: Audrey Calvoesults: 1Ne gative Date of Service: 01/22/25Follow Up: 1 Year From Orig inal Mammogram Procedure(s): MM tomosynthesis screening BI Accession Number(s): [id number] cc: Audrey Calvo MD; Name,Srinivas COOK EXAMINATION: [...] signed by Ita Copeland DO in OV> 01/27/252140 DD/ 0900 TD/TT: 01/22/25 09 Color Buffer: Audrey Calvo MD IMG BI PROCEDURES Final Result * POCT CHIQUITA-14 Urine Drug Screen (01/08/2025 11:33 AM EDT) Oxycodone Screen, Urine Positive Urine Urine specimen obtained by clean catch procedure / Unknown 01/08/2025 11:33 AM EDT Narrative Lola Garcia RN - 01/08/2025 11:33 AM EDT .Lot# [id number] Exp: 07-19-26 Audrey Calvo MD POINT OF CARE TEST ENTER /EDIT ORDERABLES Final Result * (ABNORMAL) POCT HGB A1C (12/26/2024 1:59 PM EDT) Hemoglobin A1C 8.1(A) 4.0 - 6.0 % QC Media Lot # [id number] Lot# Expiration Date , Blood 12/26/2024 1:59 PM EDT Audrey Calvo [...] 10:56 AM EST 11/13/2024 2:01 PM EST Comment:[facility] Narrative [facility] - 11/15/2024 7:38 AM EST [...] MICROBIOLOGY - GENERAL ORDER ASMITA Final Result [facility] [address] [place] [address] [phone] * (ABNORMAL) POCT urinalysis dipstick manually [...] 8:54 AM EDT) Triglycerides 66 <150 mg/dL [facility] Comment:Desirable Triglyceri de: less than 150 mg/dLBorderline High Triglyceride 150-199 mg/dLHigh Triglyceride: 200-499 mg/dLVery High Triglyceride: greater than or equal to 5OO mg/dL Cholesterol 139 <200 mg/dL [facility] Comment:Desirable Cholestero l: less than 200 mg/dLBorderline High Cholesterol: 200-239 mg/dLHigh Cholesterol: greater than 239 mg/dL LDL Cholesterol Calculated 71 <100 mg/dL [facility] Comment:Desirable LDL: less than 100 mg/dLNear Optimal/Above Optimal LDL: 110- 129 mg/dLBorderline High LDL: 130-159 mg/dLHigh LDL: 160-189 mg/dLVery High LDL: greater than or equal to 190 mg/dL HDL Cholesterol 55 >40 mg/dL [facility] Comment:Desirable HDL: great er than 40 mg/dL Note: This HDL assay may give artificially low results in patients with liver disease. Blood 06/29/2024 8:54 AM EDT 06/29/2024 11:09 AM EDT us Audrey Calvo MD LAB BLOOD ORDERABLES Fin al Result [facility] [address] [place] [address] [phone] * MICROALBUMIN, RANDOM (03/02/2021 1:58 PM EDT) Creatinine Urine 30.13 mg/dL [facility] Microalbum/Creati nine Ratio Ur 43.1 ug/mg cr [facility] Comment: ?Albumin/Creatinine Ratio Reference Ranges: ? Normal: < 30 ug/mg creatinine ? Microalbuminuria: ??30 - 300 ug/mg creatinine Clinical Albuminuria: ??> 300 ug/mg creatinine Microalbumin Urine 13.0 mg/L [facility] 03/02/2021 1:58 PM EDT Historical Provider HISTORICAL/NON ORDERABLE LABS Final Result Performing Organization Address City/[facility]/ZIP Co de Phone Number [facility] [address] * Hm Colonoscopy (08/28/2019 8:20 AM EST) Historical Provider HEALTH MAINTENANCE Final Result from Last 3 Months or Most Recently Relevant to Health Maintenance Insurance [facility] DETENTION OPTIONS (O D-SNP) JOSE ELIAS STEARNS [id number] Care Teams Production Grader Relationship Specialty Start Date End Date Audrey Calvo MD [address] [place] [phone] PCP - General Family Medicine 05/09/17
--- OUTSIDE RECORDS SUMMARY | 2025-02-01 08:33 | XMS_ITS | Encounter Summary ---
Author Organization [employer] Address [address] [facility] [address]t [place] [address] Care Team Providers Care Glaze Grinder Name Role Phone Audrey Calvo MD Primary Care Provider + Encounter Details Date Type Department Care Team (Late st Contact Info) Description 02/15/2024 Orders Only [facility] [address] [place], [place] [phone] Provider, MD [place] Social History Tobacco Use [...] Description 02/01/2025 12:00 PM EDT Office Visit [facility] [address] [place] [address] Audrey Calvo MD [address] [place] [phone] 02/12/2025 3:30 PM EDT Telemedicine [address] [address] 03/12/2025 11:00 AM EDT Office Visit [address] [address] 04/05/2025 11:30 AM EDT Office Visit [address] [address] Audrey Calvo MD [address] [place] [address] 05/16/2025 11:00 AM EDT Office Visit [facility] [address] [place] [phone] Liya Perez documented as of this encounter [...] documented as of this encounter Care Teams Glaze Grinder Relationship Specialty Start Date End Date Audrey Calvo MD [address] [place] [phone] PCP - General Family Medicine 05/09/17 documented as of this encounter
--- OUTSIDE RECORDS SUMMARY | 2025-02-01 08:33 | XMS_ITS | Encounter Summary ---
Author Organization [employer] Address [address] [place] [address] 7t [place] [address] Care Team Providers Care Service Desk Director Name Role Phone Audrey Calvo MD Primary Care Provider + Encounter Details Date Type Department Care Team (Late st Contact Info) Description 11/22/2022 Orders Only [facility] [address] [place] [address] Emi Gill LPN Social History Tobacco Use [...] Description 02/01/2025 12:00 PM EDT Office Visit [facility] [address] [place] [address] Audrey Calvo MD [address] [place] [address] 02/12/2025 3:30 PM EDT Telemedicine [facility] [place] [address] 03/12/2025 11:00 AM EDT Office Visit [facility] [place] [address] 04/05/2025 11:30 AM EDT Office Visit [facility] [place] [address] Audrey Calvo MD [address] [place] [place] [phone] 05/16/2025 11:00 AM EDT Office Visit [facility] [address] [place] [address] Liya Perez documented as of this encounter Procedures Procedure Name Priority Date/Time Associated Diagnosis Comments BD DEXA AXIAL Routine 12/07/2022 11:21 AM EDT documented in this encounter Results * BD DEXA Axial (12/07/2022 11:21 AM EDT) Anatomical Region Laterality Modality Body Radiographic Farheen ging 12/07/2022 11:2 1 AM EDT Narrative 12/08/2022 7:44 AM EDT ? [facility] [place] ? [address] ?[place] [address] ? Mammography Report ? Signed ? Patient: Ubiles,Kalyani I ?MR#: [id number] ?? 81 ? : 1955 ?Acct:[id number] ? Age/Sex: 67 / F ?ADM Date: 03/21/23 ? Loc: HO.MAMMO ? Attending Dr: Audrey Calvo MD ? Ordering Physician: Audrey Calvo MD ?Results: ? Date of Service: 12/07/22 ?Follow Up: ? Procedure(s): XR DEXA axial skeleton ?? Accession Number(s): [id number] ? cc: Audrey Calvo MD ? EXAMINATION: ?? BONE DENSITOMETRY ? CLINICAL INDICATION: ?? Screening. ? COMPARISON: ?? Previous BD dated 10/14/2017 and baseline BD dated 11/13/2013. ? TECHNIQUE: Using a VoltServer DXA System (software version: ?? 13.1) manufactured by [employer], dual-energy x-ray absorptiometry ?? was performed of [...] 0741 ? DD/ 1121 ? TD/TT: ? Patient Safety Tech: PATTERSON ? Procedure Note Donotuseinterpreter, Image - [facility] [address] [place], [place] [address] Mammography Report Signed Patient: Kalyani Rogers IMR#: [id number] [birth year] : 7Acct:[id number] Age/Sex: 67 / FADM Date: 12/07/22 Loc: HOPaulaMAMMO Attending Dr: Audrey Calvo MD Ordering Physician: Audrey Calvoesults: Date of Service: 12/07/22Follow Up: Procedure(s): XR DEXA axial skeleton Accession Number(s): [id number] cc: Audrey Calvo MD EXAMINATION: BONE DENSITOMETRY CLINICAL INDICATION: Screening. COMPARISON: Previous BD dated 10/14/2017 and baseline BD dated 11/13/2013. TECHNIQUE: Using a VoltServer DXA System (software version: 13.1) manufactured by [employer], dual-energy x-ray absorptiometry was performed of the [...] in OV> 12/08/22 0741 DD/ 1121 TD/TT: Patient Safety Tech: LEONARDO [facility] External Provider IMG DXA PROCEDURES Final Result documented in this encounter Visit Diagnoses Not on filedocumented in this encounter Care Teams Service Desk Director Relationship Specialty Start Date End Date Audrey Calvo MD [address] [place] [phone] PCP - General Family Medicine 05/09/17 documented as of this encounter
[2025-02-01 11:39] LABS: MANUAL DIFF FLAG NO
[2025-02-01 11:52] LABS: Basophils Absolute Auto 0.1 X10*3/uL (0.0-0.2); Basophils Percent Auto 1.3 % (0-2); Eosinophils Absolute Auto 0.1 X10*3/uL (0.0-0.4); Eosinophils Percent Auto 3.8 % (0-4); Hematocrit 40.9 % (37.0-47.0); Hemoglobin 13.6 g/dl (12.0-16.0); Imm Gran Abs Auto 0.01 X10*3/uL (0.00-0.03); Imm Gran Pct Auto 0.3 % (0.0-0.4); Lymphocytes Absolute Auto 1.2 X10*3/uL (1.2-4.9); Mean Corpuscular HGB Conc 33.3 g/dl (31.0-35.0); Mean Corpuscular Hemoglobin 27.6 pg (27.0-33.0); Mean Platelet Volume 10.4 fL (9.4-12.3); Monocytes Absolute Auto 0.3 X10*3/uL (0.1-1.2); Monocytes Percent Auto 9.2 % (2-11); Neutrophils Percent Auto 54.4 % (45-73); Platelet Count 218 X10*3/uL (160-400); Red Blood Count 4.93 X10*6/uL (4.20-5.50); Red Cell Distribution Width 12.6 % (11.0-16.0); White Blood Count 3.7 X10*3/uL (4.8-10.8)
[2025-02-01 12:09] LABS: Cholesterol 132 mg/dL (<200); HDL Cholesterol 49 mg/dL (>40); Iron 63 mcg/dL (30-160); LDL Cholesterol Calculated 67 mg/dL (<100); Percent Iron Saturation 26 % (15-50); Total Iron Binding Capacity 247 mcg/dL (228-428); Triglycerides 82 mg/dL (<150); Unsaturated Iron Binding 184 ug/dL
[2025-02-01 12:23] LABS: Creatinine Urine 227.49 mg/dL; Microalbum/Creatinine Ratio Ur 82.6 ug/mg cr (<30)
[2025-02-01 12:30] LABS: Ferritin 57 ng/mL (10-250); Vitamin D 25-OH Total 32.8 ng/mL (>30)
[2025-02-01 12:40] LABS: Folate 8.9 ng/mL (> or = 4.0); Vitamin B12 372 pg/mL (200-900)
[2025-02-05 05:08] LABS: Zinc 54 mcg/dL (60-130)
[2025-02-06 00:33] LABS: Vitamin A 38 mcg/dL (38-98)
[2025-02-08 16:09] LABS: Vitamin B1 7 nmol/L (8-30)
== END 2025-02-01 08:19 | disposition home or self-care (01) ==
LOC: HO.HHCL 08:18
PROVIDERS: Physician Assistant Surgical; Visit Provider Internal Medicine
DX: Z90.3 Acquired absence of stomach [part of] (principal); E11.65 Type 2 diabetes mellitus with hyperglycemia; E55.9 Vitamin D deficiency, unspecified; E78.5 Hyperlipidemia, unspecified
CPT/HCPCS: 36415; 80061; 82043; 82306; 82570; 82607; 82728; 82746; 83540; 84425; 84590; 84630; 85025

== ENCOUNTER 2025-02-26 09:26 | Outpatient (REF) | payer OTHER, SELFPAY ==
--- NOTE | ~2025-02-26 | XR_ITS ---
EXAMINATION: XR KNEE 3 VIEWS LEFT HISTORY: M25.569 - Pain in unspecified knee COMPARISON: Comparison is made with the prior examination dated 08/28/2024. FINDINGS: Standing AP views of both knees and additional lateral and sunrise patellar views of the left knee are submitted. Osseous mineralization is normal. There is no fracture or dislocation. There is mild narrowing of the medial and patellofemoral compartments. The soft tissues are unremarkable. There is no joint effusion. XR/XR knee LT 3V IMPRESSION: Mild narrowing of the medial patellofemoral compartments. Electronically signed by: Toi Wiley MD 02/27/2025 07:51 AM EDT
--- OUTSIDE RECORDS SUMMARY | 2025-02-27 10:16 | XMS_ITS | Encounter Summary ---
Author Organization [employer] Address [address] [place] [address] [address] [address] Care Team Providers Care Funeral Sales Manager Name Role Phone Audrey Calvo MD Primary Care Provider + Reason for Visit * Reason Comments Med Refill Encounter Details Date Type Department Care Team ([facility] Contact Info) Description 08/18/2023 Refill [facility] [address] [place] [address] Audrey Calvo MD [address] [place] [address] Social History Tobacco Use Types Packs/Day Years [...] Description 03/12/2025 11:00 AM EDT Office Visit [facility] [address] [place] [phone] 04/05/2025 11:30 AM EDT Office Visit [facility] [address] [place] [address] Audrey Calvo MD [address] [place] [address] 05/16/2025 11:00 AM EDT Office Visit [facility] ADULT DENTAL [address] [place] [phone] Liya Perez documented as of this encounter Visit Diagnoses Not on filedocumented in this encounter Additional Health Concerns Assessment Noted Time PHQ-9 Depression Total Score: 0 12/23/19 23 9:08 AM EDT documented as of this encounter Care Teams Funeral Sales Manager Relationship Specialty Start Date End Date Audrey Calvo MD [address] [place] [phone] PCP - General Family Medicine 05/09/17 documented as of this encounter
== END 2025-02-26 09:27 | disposition home or self-care (01) ==
LOC: HO.HOSX 09:26
PROVIDERS: Visit Provider Physician Assistant
DX: M17.12 Unilateral primary osteoarthritis, left knee (principal)
CPT/HCPCS: 73562; 99212

== ENCOUNTER 2025-02-26 14:41 | Outpatient (AMB) | payer OTHER, SELFPAY ==
[2025-02-26 14:52] VITALS: BMI 33.1
--- NOTE | 2025-02-26 14:52 | A.OFFVIS_ITS ---
Vital Signs 02/26/25 14:52 Height 5 ft 3 in Weight 187 lb BMI 33.1 Intake Visit Reasons: OV - left knee OA, last gel 09/27/24 Intake Note: Kalyani is a 69 year old female who presents today for a follow up of her left knee OA, last durolane injection 09/27/24. Patient reports that the left knee had no relief from the injection. Patients daughter stated that she had a red jenn on her left knee from the injection, which gave them concern. Patient's daughter states that the knee pain radiates down to the ankle. Patient's daughter reports that she takes pain mediation to help with the pain. Loom Control Chain Builder Required: Yes Loom Control Chain Builder Services: Loom Control Chain Builder Offered & Declined Loom Control Chain Builder Name: Daughter-Loly Allergies pollen extracts Allergy (Severe, Verified 02/26/25 14:59) Shortness of Breath HPI HPI OV - left knee OA, last gel 09/27/24: Details: Ms. Sue Ling is a 69-year-old female who presents to the office today for routine follow-up of chronic left knee pain due to osteoarthritis. She has tried cortisone injections as well as gel injections in the past. She reports that she has had no relief with this. She is looking to discuss further treatment options. ON LICENSE OF [facility] Medical History Skin lesion of right leg Varicosities of leg Uncontrolled type 2 diabetes mellitus Diabetic polyneuropathy associated with type 2 diabetes mellitus Vitamin D deficiency Hypertension Diabetes type 2, controlled History of diverticulosis Hx of diverticulitis of colon Dyslipidemia Surgical History History of surgical removal of skin lesion (~08/23/24) History of surgery on lower extremity History of sleeve gastrectomy Hx of excision of mass Hx of colonoscopy Hx of cholecystectomy History of carpal tunnel release Hx of tubal ligation Hx of foot surgery Family History Father Hypertension Mother No problems noted. Son No problems noted. Son No problems noted. Daughter Hypertension Asthma Obesity Muscle spasm Acute depression Sister No problems noted. Sister No problems noted. Brother No problems noted. Brother No problems noted. Brother No problems noted. Brother No problems noted. Brother No problems noted. Social History Household Members: Family Housing: Apartment Do you presently have visiting nurse or other home services: Yes Alcohol intake: never Patient Tobacco Use Status: Never used Tobacco Advance Directives Date on File: 09/17/21 service: No Current occupational status: unemployed Review of Systems Const All systems reviewed & are unremarkable except as noted in HPI and below Physical Exam Vital Signs: BMI result Body Mass Index 33.1 Const General: cooperative and no acute distress Orientation/consciousness: patient oriented x3 Resp Effort & Inspection: normal respiratory effort and able to speak in complete sentences Cardio Rate: regular rate Peripheral pulses: Peripheral pulses 2+ throughout Skin General skin exam: no rashes or lesions noted Lesions: no lesions Rashes: no rashes Neuro General: patient oriented x3 Extrem Other: Left knee: Normal to inspection. No ecchymosis, erythema, or joint effusion. Tenderness to palpation along the medial joint line. Full knee extension and flexion. Crepitus felt with ROM. NVI. Assessment & Plan Assessment & Plan (1) Osteoarthritis of left knee: Code(s): M17.12 - Unilateral primary osteoarthritis, left knee Category: Medical Plan Ms. Sue Ling is a 69-year-old female who presents to the office today for routine follow-up of chronic left knee pain due to osteoarthritis. She has tried cortisone injections as well as gel injections in the past. She reports that she has had no relief with this. She is looking to discuss further treatment options. While the office today, we discussed conservative versus surgical intervention in regards to her left knee osteoarthritis. I discussed repeat cortisone injection to see if this gives her some relief. I also discussed referral to pain management for consultation in regards to a geniculate nerve block for this patient. The patient would like to did not climb these options at this time and is looking for a more permanent solution. I did discuss the case with Dr. Henao who was available but did not see the patient with me in the office today in a collaborative treatment plan was created. I ordered an MRI to further evaluate the integrity of the knee and surrounding structures. She will follow up after the MRI is obtained, sooner if needed. X-rays of the left knee were obtained in the office today and reviewed by me, Chetan Ramirez PA-C, and reveal left knee osteoarthritis with no acute fracture or dislocation. Orders: Orders MR knee LT wo con Today M17.12 - Unilateral primary osteoarthritis, left knee XR knee LT 3V 02/26/25 M25.569 - Pain in unspecified knee Coding Level of Care Code Global (31288) Diagnoses Osteoarthritis of left knee M17.12
--- OUTSIDE RECORDS SUMMARY | 2025-02-26 17:39 | XMS_ITS | Encounter Summary ---
Author Organization [employer] Address [address] [place] [address] [address] [address] Care Team Providers Care Preparation Plant Repairer Name Role Phone Audrey Calvo MD Primary Care Provider + Reason for Visit * Reason Comments Med Refill Encounter Details Date Type Department Care Team ([facility] Contact Info) Description 08/18/[address] [facility] [address] [place] [address] Audrey Calvo MD [address] [place] [address] Social History Tobacco Use Types Packs/Day Years [...] Care Team (Late st Contact Info) Description 03/12/2025 11:00 AM EDT Office Visit [facility] [address] [place] [phone] 04/05/2025 11:30 AM EDT Office Visit [facility] [address] [place] [phone] Audrey Calvo MD [address] [place] [phone] 05/16/2025 11:00 AM EDT Office Visit [facility] ADULT DENTAL [address] [place] [phone] Liya Perez documented as of this encounter Visit Diagnoses Not on filedocumented in this encounter Additional Health Concerns Assessment Noted Time PHQ-9 Depression Total Score: 0 12/23/19 23 9:08 AM EDT documented as of this encounter Care Teams Preparation Plant Repairer Relationship Specialty Start Date End Date Audrey Calvo MD [address] [place] [phone] PCP - General Family Medicine 05/09/17 documented as of this encounter
== END 2025-02-26 15:26 | disposition home or self-care (01) ==
LOC: HO.HOS 14:41
PROVIDERS: PCP Internal Medicine; Visit Provider Physician Assistant
DX: M17.12 Unilateral primary osteoarthritis, left knee (principal)
CPT/HCPCS: 99213

== ENCOUNTER → 2025-02-26 14:44 | Outpatient (BNV) | payer OTHER, SELFPAY | PROVIDERS: Visit Provider Radiology Diagnostic Radiology | DX: M25.562 Pain in left knee (principal) | CPT/HCPCS: 73562 ==

== ENCOUNTER 2025-03-30 09:48 | Outpatient (REF) | payer OTHER, SELFPAY ==
--- NOTE | ~2025-03-30 | MR_ITS ---
CLINICAL HISTORY: M17.12 - Unilateral primary osteoarthritis, left knee MR of the left knee without contrast. No prior MR. Findings: There is a probable small oblique tear of the body of the lateral meniscus. There is a horizontal tear of the body of the medial meniscus. The cruciate and collateral ligaments are intact. The patellar and quadriceps tendons are unremarkable. There are mild degenerative changes of the medial compartment. There is moderate patellofemoral DJD. Patellofemoral alignment is normal. The patellar retinacula are intact. There is a small joint effusion with a small popliteal cyst. There is diffuse ill-defined nonspecific subcutaneous edema. There is a small ganglion along the periphery of the body of the medial meniscus. There also small fluid collections in the infrapatellar fat pad of questionable significance. Mildly heterogeneous marrow signal most likely relates to red marrow. Impression: Probable small tear of the lateral meniscus. Small horizontal tear of the medial meniscus. Degenerative changes of the medial and patellofemoral compartments. Small joint effusion with a small popliteal cyst. Other findings as above. This document has been electronically signed by: Erwin Traylor MD on 04/03/2025 19:48:14
--- OUTSIDE RECORDS SUMMARY | 2025-03-30 09:52 | XMS_ITS | Data Portability ---
Author Organization [facility] [employer] [facility], [employer] [facility] Address [address] [place] [address] Care Team Providers Care Veterinary Inspector Name Role Phone HIM CCA OTHER Assessment Encounter Date Assessment Date Assessment LastModified by Organization Details LastModified Time 01/15/2025 01/15/2025 Evaluation in the field was performed by my engine pilot colleague, as noted above, I provided real-time [...] glucose , fingers tick, blood 025 01/16/20 25 [facility]KI [facility], [address] [place] [address], [phone] 5 15:13:07 Referral None recorde d. Procedures [...] Name and Address Organization Details Recorded Time 88882 aspirin medicatio n Not available Not available [...] blood by Pulse oximetry Body height Systolic And Diastolic Provider Name and Address Organization Details Last Updated DateTime 5 18 /min 81345.1 52 g 73 /min 98.6 [degF] 97 % 97 % 160.02 cm 118/62 mm[Hg] Not Available [employer] - production 5 13:38:24 Social History None recorded. Functional Status None recorded. Mental Status None recorded. Family History Nothing Reported. Medical History No medical history recorded. Gynecological HistoryNo gynecological history recorded. Obstetrics History GPAL:G 0 P 0 0 0 0 Past Encounters Encounter ID Performer Location Encounter Start Date Encounter Closed Date Diagnosis/Indication Diagnosis SNOMED-CT Code Diagnosis ICD10 Code Diagnosis Note [id number] Ginger Steele MD Main - [facility] [address] [place] [address] 01/15/2025 13:19:27 01/15/2025 15:05:54 [facility] [id number] R73.9 Health Concerns Section Related Observation LastModified by Organization Detai ls LastModified Time None Recorded Concern Status LastModified by Organization Details LastModified Time None Recorded Advance Directives Directive None Recorded Payers Insurance Date Sequence Insurance Name Policy Number Policy Magana Covered Member ID Magana Member ID Guarantor Name 01/15/2025 1 [facility] - DOS ON OR AFTER 2022 - DUAL ELIGIBLE - [facility] OPTIONS AND ONE CARE (MEDICARE REPLACEMENT/AD VANTAGE - HMO) Kalyani Ling [id number] Kalyani Ling Notes Date Note Type Note Provider Name and Address Organization Details Recorded Time 01/15/2025 text/html HPI: No semiconductor packages tester needed as this investment underwriter speaks Niuean. Call returned to Kalyani Rogers to triage [...] states unable to come into [facility] or return to Urology office today. Agrees to [facility] referral for evaluation. Confirmed demographics and allergies. Advised to be contacted by [facility] team once ETA available for medic. Pt verbalized understanding. ...................... ...................... ...................... ...................... ...................... ...................... ......... Chief Complaints: Urinary Symptoms PMH: Asthma, Gastroesophageal Reflux Disease (GERD), Obesity, Hypertension, Diabetes Mellitus Type 2, Osteoarthritis, Urinary Tract Infections (UTI) PMH Reviewed at 01/15/2025 - :35 Allergies Reviewed at 01/15/2025 - :35 ...................... ...................... ...................... ...................... ...................... ...................... ......... Crop Grain Or Livestock Farmer Note From Yadi Ness: Sent to a call for a pt complaining of high blood sugar and possible UTI. SC8 arrives on scene, pt is alert and oriented, airway is patent. Pt's primary language is Niuean. Pt's family serves as semiconductor packages tester. Pt has history of DM2 and frequent [...] sugar and contacted clinic today, who called [facility] for a visit. Pt denies hartman, cp, sob, cough, runny nose, vomiting, diarrhea, hematuria, fever, or loc. BP:118/62, P:73, RR:18, SpO2:97%RA, T:98.6, B; Head: unremarkable; Lung sounds: clear bilaterally; Abdomen: soft, non-tender, no distention; Back: unremarkable; Extremities: unremarkable; Urine sample obtained; [facility] consulted and pt is advised to have labs drawn/obtained tomorrow, and follow up with PCP. Pt is reassured BG is not in an urgent/unsafe range. Pt advised urine dip: neg; Red flags discussed. Pt has no further questions. [facility] Lab Orders: glucose, fingerstick, blood: Performed ...................... ...................... ...................... ...................... ...................... ...................... ......... [facility] Consulted: Ginger Steele ...................... ...................... ...................... ...................... ...................... ...................... ......... Disposition: Fulfilled Ginger Steele MD [address] [place] [address],[address], [place], [phone], [employer] 01/15/2025 14:53:12 OBGyn Episode No OBEpisode recorded.
--- OUTSIDE RECORDS SUMMARY | 2025-03-30 09:52 | XMS_ITS | Clinical Summary ---
Author Organization [facility] Address [address] [place] [address] Phone Care Team Providers Care International Marketing Manager Name Role Phone Audrey Calvo MD Primary Care Provider Social History Tobacco Use Types Packs/Day Years Used Date Smoking Tobacco: Never Assessed Comments Unknown Sex and Gender Information Value Date Recorded Sex Assigned at Not on file Legal Sex Female 11:08 AM EDT Gender Identity Not on file Sexual Orientation Not on file Plan of Treatment Upcoming Encounters Date Type Department Care Team ([facility] st Contact Info) Description 04/08/2025 9:45 AM EDT Consult Orthopedic Surgery - [place] [address] [phone] [place] DPM [address] [address] Health Maintenance Due Date Last Done Comments Breast Cancer Screening 1957 Diabetes: Annual GFR (Glomer ular Filtration Rate) 1957 Diabetes: Annual Foot Exam 1967 Diabetes: Annual Retina Eye Exam 1967 DTaP,Tdap,and Td Vaccines (1 - Tdap) 1976 Pneumococcal Vaccine: 50+ Ye ars (1 of 2 - PCV) 1976 Zoster Vaccines (1 of 2) 2007 RSV Immunization Adult Patie nts (1 - Risk 60-74 years 1-dose series) 2017 Cholesterol Screening (Lipid Panel) 05/16/2024 Colorectal Cancer Screening: Colonoscopy 05/16/2024 Depression Screening 05/16/2024 Falls Risk Assessment 05/16/2024 Hepatitis C Screening 05/16/2024 Medicare Annual Wellness Visit 05/16/2024 Osteoporosis Screening (Bone Density Screening) 05/16/2024 Social Influencers of Health Screening 05/16/2024 COVID-19 Vaccine (2023-2 5 season) 2024 Diabetes: Annual Urine Albumin-Creatinine Ratio (uACR) 01/23/2025 Diabetes: Blood Sugar Contro l Test (HGBA1C) 01/23/2025 Influenza Vaccine (#1) 2025 HIB Vaccines Aged Out No longer eligi [...] on patient's age to complete this topic MMR Vaccines Aged Out No longer eligi ble based on patient's age to complete this topic Meningococcal ACWY Vaccine Aged Out N o longer eligible based on patient's age to complete this topic Meningococcal B Vaccine Aged Out No l onger eligible based on patient's age to complete this topic RSV Immunization Patients Un perla 20 months Aged Out No longer eligible b ased on patient's age to complete this topic Varicella Vaccines Aged Out No longer eligible based on patient's age to complete this topic Insurance [facility] Member Subscriber Plan / Payer (Ef fective 2022-Present) Name:Kendrickmelania LingKalyani Relation to Subscriber:Self Name:Kalyani Rogers Payer ID:[id number] Group ID:[id number] Type:Not on file Address: [place] [address] [address] [phone] Care Teams International Marketing Manager Relationship Specialty Start Date End Date Audrey Calvo MD [address] [place] [phone] [facility] - General 02/17/24
== END 2025-03-30 09:49 | disposition home or self-care (01) ==
LOC: HO.MRI 09:48
PROVIDERS: PCP Internal Medicine; Visit Provider Physician Assistant
DX: M17.12 Unilateral primary osteoarthritis, left knee (principal)
CPT/HCPCS: 73721

== ENCOUNTER → 2025-03-30 09:52 | Outpatient (BNV) | payer OTHER, SELFPAY | PROVIDERS: PCP Internal Medicine; Visit Provider Radiology Diagnostic Radiology | DX: S83.242A Other tear of medial meniscus, current injury, left knee, initial encounter (principal) | CPT/HCPCS: 73721 ==

== ENCOUNTER 2025-07-09 08:12 | Outpatient (AMB) | payer OTHER, SELFPAY ==
--- OUTSIDE RECORDS SUMMARY | 2025-07-09 08:19 | XMS_ITS | Clinical Summary ---
Author Organization [facility] Address [address] [place] [address] Phone Care Team Providers Care Casino Floor Supervisor Name Role Phone Unavailable Primary Care Provider Unavailabl e Social History Tobacco Use Types Packs/Day Years Used Date Smoking Tobacco: Never Assessed Education Answer Date Recorded Are you interested in more education? Not on rajendra e 01/15/2023 Are you concerned about learning? Not on file 01/15/2023 No 01/15/2023 No 01/15/2023 Digital Access Answer Date Recorded No 02/15/2023 No 02/15/2023 Reliable internet access at home? Not on file 02/15/2023 Device with a working camera? Not on file Comments Unknown Sex and Gender Information Value Date Recorded Sex Assigned at Not on file Legal Sex Female 2:11 PM EST Gender Identity Not on file Sexual Orientation Not on file Plan of Treatment Not on file Medical Devices Not on file Additional Source Comments The information contained in this document represents components of the legal health record. It is not the complete legal health record.[facility]
--- OUTSIDE RECORDS SUMMARY | 2025-07-09 08:19 | XMS_ITS | Data Portability ---
Author Organization [employer] [facility], [address] [employer] [address] Medical [facility] Address [address] [place] [address] Care Team Providers Care First Grade Teacher Name Role Phone HIM CCA OTHER Assessment Encounter Date Assessment Date Assessment LastModified by Organization Details LastModified Time 01/15/2025 01/15/2025 Evaluation in the field was performed by my international account manager colleague, as noted above, I provided real-time [...] 025 01/16/20 25 [facility], [address] [place] [address], [phone] 5 15:13:07 Referral None recorde d. Procedures [...] Name and Address Organization Details Recorded Time 16212 aspirin medicatio n Not available Not available [...] Details Last Updated DateTime 5 18 /min 21478.1 52 g 73 /min 98.6 [degF] 97 % 97 % 160.02 cm 118/62 mm[Hg] Not Available [employer] - production 5 13:38:24 Social History None recorded. Functional Status None recorded. Mental Status None recorded. Family History Nothing Reported. Medical History No medical history recorded. Gynecological HistoryNo gynecological history recorded. Obstetrics History GPAL:G 0 P 0 0 0 0 Past Encounters Encounter ID Performer Location Encounter Start Date Encounter Closed Date Diagnosis/Indication Diagnosis SNOMED-CT Code Diagnosis ICD10 Code Diagnosis IMO Codes Diagnosis Note [id number] Ginger Steele MD Main - [facility] [address] [place] [address] 01/15/2025 13:19:27 01/15/2025 15:05:54 [facility] [id number] R73.9 [address] Health Concerns Section Related Observation LastModified by Organization Detai ls LastModified Time None Recorded Concern Status LastModified by Organization Details LastModified Time None Recorded Advance Directives Directive None Recorded Payers Insurance Date Sequence Insurance Name Policy Number Policy Magana Covered Member ID Magana Member ID Guarantor Name 01/15/2025 1 [facility] - DOS ON OR AFTER 2022 - DUAL ELIGIBLE - CUSTODIAL OPTIONS AND ONE CARE (MEDICARE REPLACEMENT/AD VANTAGE - HMO) Kalyani Ling [id number] Kalyani Ling Notes Date Note Type Note Provider Name and Address Organization Details Recorded Time 01/15/2025 text/html ROS as noted in the HPI HPI: No rough rice grader needed as this speech writer speaks [place]. Call returned to Kalyani Rogers to triage [...] Tuesday. Pt states unable to come into [facility] or return to Urology office [...] ...................... ...................... ...................... ...................... ...................... ...................... ......... Darklight Inspector Note From Yadi Ness: Sent to a call for a pt complaining of high blood sugar and possible UTI. SC8 arrives on scene, pt is alert and oriented, airway is patent. Pt's primary language is [place] Island[place]. Pt's family serves as rough rice grader. Pt has history of DM2 and frequent [...] sugar and contacted clinic today, who called [facility] for a visit. Pt denies hartman, cp, sob, cough, runny nose, vomiting, diarrhea, hematuria, fever, or loc. BP:118/62, P:73, RR:18, SpO2:97%RA, T:98.6, B; Head: unremarkable; Lung sounds: clear bilaterally; Abdomen: soft, non-tender, no distention; Back: unremarkable; Extremities: unremarkable; Urine sample obtained; urine dip results: uploaded to [facility]. [facility] consulted and pt is advised to have labs drawn/obtained tomorrow, and follow up with PCP. Pt is reassured BG is not in an urgent/unsafe range. Pt advised urine dip: neg; Red flags discussed. Pt has no further questions. [facility] Lab Orders: glucose, fingerstick, blood: Performed ...................... ...................... ...................... ...................... ...................... ...................... ......... [facility] Consulted: Ginger Steele ...................... ...................... ...................... ...................... ...................... ...................... ......... Disposition: Fulfilled Ginger Steele MD [address] [facility],[address], [place], [address], [place] 01/15/2025 14:53:12 OBGyn Episode No OBEpisode recorded.
--- NOTE | 2025-07-09 08:22 | A.OFFVIS_ITS ---
Vital Signs 07/09/25 08:31 Height 5 ft 3 in Intake Visit Reasons: OV-Lt knee MRI review Intake Note: Kalyani is a 70 year old female who presents today for a MRI review of her left knee. Patient reports she is still having a lot of pain in her left knee. Impression: Probable small tear of the lateral meniscus. Small horizontal tear of the medial meniscus. Degenerative changes of the medial and patellofemoral compartments. Small joint effusion with a small popliteal cyst. Other findings as above. Canoe Maker Services: Canoe Maker Present (([id number])) Allergies pollen extracts Allergy (Severe, Verified 07/09/25 08:31) Shortness of Breath HPI HPI OV-Lt knee MRI review: Details: Ms. Sue Ling is a 70-year-old female who presents to the office today for chronic left knee pain. She had an MRI that was obtained which show mild degenerative changes in which we will review in the office today. She reports she continues to have significant left knee pain which limits her daily activities. She has tried cortisone and gel injections with no relief. She is looking for additional treatment options. [facility] Medical History Skin lesion of right leg Varicosities of leg Uncontrolled type 2 diabetes mellitus Diabetic polyneuropathy associated with type 2 diabetes mellitus Vitamin D deficiency Hypertension Diabetes type 2, controlled History of diverticulosis Hx of diverticulitis of colon Dyslipidemia Surgical History History of surgical removal of skin lesion (~08/23/24) History of surgery on lower extremity History of sleeve gastrectomy Hx of excision of mass Hx of colonoscopy Hx of cholecystectomy History of carpal tunnel release Hx of tubal ligation Hx of foot surgery Family History Father Hypertension Mother No problems noted. Son No problems noted. Son No problems noted. Daughter Hypertension Asthma Obesity Muscle spasm Acute depression Sister No problems noted. Sister No problems noted. Brother No problems noted. Brother No problems noted. Brother No problems noted. Brother No problems noted. Brother No problems noted. Social History Household Members: Family Housing: Apartment Do you presently have visiting nurse or other home services: Yes Alcohol intake: never Patient Tobacco Use Status: Never used Tobacco Advance Directives Date on File: 09/17/21 service: No Current occupational status: unemployed Review of Systems Const All systems reviewed & are unremarkable except as noted in HPI and below Physical Exam Const General: cooperative, healthy appearing and no acute distress Orientation/consciousness: patient oriented x3 Resp Effort & Inspection: normal respiratory effort and able to speak in complete sen tences Neuro General: patient oriented x3 Extrem Other: Left knee: Normal to inspection. No ecchymosis, erythema, or joint effusion. Tenderness to palpation along the medial joint line. Full knee extension and flexion. Crepitus felt with ROM. NVI. Psych Appearance: grossly normal Mental Status: mental status grossly normal Attitude: cooperative Assessment & Plan Assessment & Plan (1) Osteoarthritis of left knee: Code(s): M17.12 - Unilateral primary osteoarthritis, left knee Category: Medical Plan Ms. Sue Ling is a 70-year-old female who presents to the office today for chronic left knee pain. She had an MRI that was obtained which show mild degenerative changes in which we will review in the office today. She reports she continues to have significant left knee pain which limits her daily activities. She has tried cortisone and gel injections with no relief. She is looking for additional treatment options. I was able to speak with Dr. Henao who was available but did not see the patient with me in the office today. Unfortunately, the patient's MRI and x-ray imaging is significant for mild arthritic changes. At this time it is not appropriate to move forward with a total knee arthroplasty. Recommendation is to continue with conservative treatment options. I did discuss with the patient a referral to pain management for other conservative treatment options including the possibility of geniculate nerve blocks in. A formal referral has been placed. As she is not a surgical candidate at this time she will follow up with Orthopedics [facility] sooner if needed. MRI left knee obtained on 03/30/2025: Impression: Probable small tear of the lateral meniscus. Small horizontal tear of the medial meniscus. Degenerative changes of the medial and patellofemoral compartments. Small joint effusion with a small popliteal cyst. Other findings as above. Coding Level of Care Code Est Pt Level 3 (12394) Diagnoses Osteoarthritis of left knee M17.12
== END 2025-07-09 08:43 | disposition home or self-care (01) ==
LOC: HO.HOS 08:14
PROVIDERS: PCP Internal Medicine; Visit Provider Physician Assistant
DX: M17.12 Unilateral primary osteoarthritis, left knee (principal)
CPT/HCPCS: 99213

== ENCOUNTER → 2025-07-09 08:12 | Outpatient (BNVA) | payer OTHER, SELFPAY | PROVIDERS: PCP Internal Medicine; Visit Provider Physician Assistant | DX: M17.12 Unilateral primary osteoarthritis, left knee (principal) | CPT/HCPCS: 99212 ==

== ENCOUNTER 2025-07-12 11:26 | Inpatient (IN) | payer OTHER, SELFPAY ==
[2025-07-12] VITALS (28 sets, daily range): BP systolic 118–196; BP diastolic 44–84; PULSE 61–125; RESP 13–19; TEMP 36.2–38.2; O2SAT 93–100; BMI 30.6
--- NOTE | ~2025-07-12 | CT_ITS ---
EXAMINATION: CT HEAD WITHOUT CONTRAST (STROKE PROTOCOL) CLINICAL INFORMATION: Right-sided numbness. Difficulty with word finding concerning stroke. COMPARISON: CT brain dated June 11, 2008 is not available on PACS system. TECHNIQUE: Contiguous axial imaging was performed from the skull base to vertex without intravenous administration of contrast. This CT examination was performed using dose optimization techniques as appropriate, variously including the following: *Automated exposure control *Adjustment of mA and/or kV according to patient size (this includes techniques or standardized protocols for targeted exams where dose is matched to indication/reason for exam; i.e. extremities or head) *Use of iterative reconstruction technique. 658 mGy centimeter. FINDINGS: No acute intracranial hemorrhage, mass effect, midline shift, hydrocephalus or herniation. Story-white matter differentiation is normal. No dense MCA. Posterior cranial fossa contents demonstrated no acute hemorrhage or gross mass effect. Calcified plaques in the V4 segments of the vertebral arteries and cavernous supracavernous segments both ICAs. No air-fluid levels in the paranasal sinuses. Mild mucosal thickening, maxillary sinuses. Tympanic cavities and mastoid cells are aerated. Mild prominent lacrimal glands. CT/CT head for STROKE IMPRESSION: No acute intracranial hemorrhage or acute brain abnormality by CT. EXAMINATION: CTA NECK WITH CONTRAST (STROKE) CTA BRAIN WITH CONTRAST (STROKE) CLINICAL INFORMATION: Right-sided numbness. Difficulty with word finding. Concerning stroke. COMPARISON: None available. TECHNIQUE: CTA of the head and neck was performed in the axial plane from the mediastinum to the skull vertex using 70 mL Omnipaque 350 intravenous contrast. Additional reformatted multiplanar images including maximum intensity projection MIP images are generated on the CT workstation. This CT examination was performed using dose optimization techniques as appropriate, variously including the following: *Automated exposure control *Adjustment of mA and/or kV according to patient size (this includes techniques or standardized protocols for targeted exams where dose is matched to indication/reason for exam; i.e. extremities or head) *Use of iterative reconstruction technique. DLP: 662 mGy centimeter. FINDINGS: The degree of stenosis determined by criteria similar to NASCET. Chest CTA: Incomplete visualization of the aortic arch demonstrated calcified plaques in the wall without focal stenosis or intimal flap. Normal diameter.. Neck CTA: Right CCA: Normal patency. No focal stenosis. No intimal flap. Right ICA: Normal patency. No focal stenosis. No intimal flap. Left CCA: Normal patency. No focal stenosis. No intimal flap. Left ICA: Normal patency. No focal stenosis. No intimal flap. V1/V2 segments: Normal patency. No focal stenosis. No intimal flap. Left vertebral artery is dominant. Both origin from the subclavian arteries. Brain CTA: Anterior cerebral circulation: ICAs: Normal patency. No focal stenosis. No abrupt cut off. ICA terminus demonstrated no vascular irregularity. Calcified plaques in the cavernous supracavernous segments. MCA's: Normal patency. No focal stenosis. No abrupt cut off. Bifurcation/trifurcation demonstrated no gross abnormality. ACAs: Normal patency. No focal stenosis. No abrupt cut off. Ophthalmic arteries are patent without gross abnormality. Anterior communicating artery is patent without gross abnormality. I do not see the posterior communicating arteries. Posterior cerebral circulation: V3/V4 segments: Calcified plaques. Normal patency. No focal stenosis. No intimal flap. Left vertebral artery is dominant. Posterior inferior cerebral arteries are patent without gross abnormality. Basilar artery is patent without focal stenosis or intimal flap. Superior cerebellar arteries are patent. No gross abnormality. environmental services associate: Normal patency. No focal stenosis. No abrupt cut off. Ancillary findings: No main cerebral venous sinuses thrombosis. The thyroid gland is not enlarged. Bilateral pulmonary mosaic pattern. Multilevel cervical spondylosis pronounced at C6-7 and to a lesser extent from C2-3 to C5-6. IMPRESSION: No main cerebral artery occlusion or embolus or gross aneurysm. No dissection or high-grade degree stenosis, vessels of the neck. This critical result was discussed with emergency physician Dr. Prateek De Leon at 11:49 AM hours on July 12, 2025. It was ascertained that the content and urgency of the report was understood at the time of direct communication. Electronically signed by: Maxi Aparicio MD 07/12/2025 11:59 AM EDT
--- NOTE | ~2025-07-12 | MR_ITS ---
CLINICAL HISTORY: stroke TNK Exam: Nonenhanced MRI brain. Comparison: CT brain 07/12/2025. Findings: There is no cerebral edema or mass effect. White matter reveals a few punctate foci of T2 hyperintensity common nonspecific although likely sequela of very minimal chronic microangiopathic disease.. Diffusion weighted imaging reveals no restricted diffusion or MR evidence of acute ischemia. Susceptibility weighted imaging reveals no susceptibility artifact or evidence of intracranial hemorrhage. No sellar or parasellar lesions. Ventricular size and configuration are within normal limits. Cerebral cisterns are preserved. There are few opacified mastoid air cells on the right. No other significant signal abnormality seen within the paranasal sinuses or mastoid air cells. Preserved flow signal voids are present within visualized intracranial vasculature. Impression: 1. No acute intracranial abnormalities. This document has been electronically signed by: Chad Fuller MD on 07/13/2025 13:35:12
--- NOTE | 2025-07-12 11:39 | ECG_ITS ---
Test Reason : STROKE RULE OF AFIB Blood Pressure : */* mmHG Vent. Rate : 66 BPM Atrial Rate : 66 BPM P-R Int : 140 ms QRS Dur : 106 ms QT Int : 428 ms P-R-T Axes : 3 -41 17 degrees QTcB Int : 448 ms Normal sinus rhythm Left axis deviation Minimal voltage criteria for LVH, may be normal variant ( Reg product ) Abnormal ECG When compared with ECG of 23-Jun-2022 08:00, QRS duration has increased Referred By: Prateek De Leon Electronically Signed By: ROYA RUTLEDGE MD
--- NOTE | 2025-07-12 11:41 | ED.NEUROSD ---
HPI - Neuro Symptoms/Deficit General Chief Complaint: Stroke Stated Complaint: Stroke- R Side Weakness Time Seen by Provider: 07/12/25 11:36 Source: patient and family Mode of arrival: ambulatory Limitations: language barrier ([place]ian speaking only, [facility] bag machine operator used) History of Present Illness ED Provider: Dr. Prateek De Leon HPI Narrative: 70-year-old female with a history asthma, pyelonephritis, diabetes, hypertension, diverticulosis, gastric sleeve surgery who presents emergency department for evaluation of stroke-like symptoms. Patient developed tingling in his in the right side of her body at 09:00 hours. She then developed difficulty speaking. I did evaluate the patient at triage and the family states that her speech is not back to normal and she is still complaining of right-sided tingling in his/numbness. The patient was made a stroke protocol and brought immediately to CT scan for CT head and CT angiogram head and neck. Family states that throughout the week she complained of sweatiness but otherwise had no other complaints. Point of care glucose at home was 200 Related Data Home Medications ?Medication ?Instructions ?Recorded ?Confirmed chlorthalidone 25 mg tablet 25 mg PO DAILY 08/01/20 11/13/24 enalapril maleate 20 mg tablet 20 mg PO DAILY 08/01/20 11/13/24 loratadine 10 mg tablet 10 mg PO DAILY 08/01/20 11/13/24 nebivolol 5 mg tablet 5 mg PO DAILY 08/01/20 11/13/24 pregabalin 75 mg capsule 75 mg PO BEDTIME 08/01/20 11/13/24 albuterol sulfate 90 mcg/actuation 2 puff PO Q4-6H PRN dyspnea 11/21/20 11/13/24 aerosol inhaler blood sugar diagnostic #10 ea 11/21/20 11/13/24 fluticasone propionate 110 1 puff inhalation BID 11/21/20 11/13/24 mcg/actuation HFA aerosol inhaler oxycodone-acetaminophen 5 mg-325 1 tab PO Q8H PRN severe pain 09/16/21 11/13/24 mg tablet alcohol swabs (Alcohol Prep Pads) 1 pad topical QID 11/30/21 11/13/24 blood pressure test kit-large #1 ea 04/05/22 11/13/24 lancets 33 gauge (TRUEplus Lancets) #100 ea 04/05/22 11/13/24 blood sugar diagnostic (FreeStyle 04/30/22 11/13/24 Lite Strips) blood-glucose meter (FreeStyle 04/30/22 11/13/24 Lite Meter kit) amlodipine 10 mg tablet 10 mg PO DAILY 08/20/22 11/13/24 metoprolol succinate 50 mg 50 mg PO DAILY 04/04/23 11/13/24 tablet,extended release 24 hr dulaglutide 3 mg/0.5 mL mg subcut QWEEK 04/05/23 11/13/24 subcutaneous pen injector (Trulicity) Previous Rx's ?Medication ?Instructions ?Recorded xvwuzxjq-pni-[id number] acid 0.4 1 tab PO DAILY #30 tabs 03/16/21 mg-lycopene 300 mcg-lutein 250 mcg tablet (Complete Multivitamin Adult 50 Plus) phenazopyridine 100 mg tablet 100 mg PO TID PRN pain 6 doses #6 11/30/21 (Pyridium) tabs rosuvastatin 40 mg tablet 40 mg PO BEDTIME #30 tabs 08/20/22 blood-glucose meter (FreeStyle #1 ea 09/07/22 Lite Meter kit) ezetimibe 10 mg tablet 10 mg PO QAM #90 tabs 09/07/22 insulin glargine 100 unit/mL (3 10 unit (0.1 mL) subcut QPM #15 mL 12/20/22 mL) subcutaneous pen (Lantus Solostar U-100 Insulin) flash glucose scanning reader #1 ea 12/31/22 (FreeStyle Marcos 2 Filion) pen needle, diabetic 32 gauge x #50 ea 01/05/23 (BD Ultra-Fine Tracie Pen Needle) cholecalciferol (vitamin D3) 50 50 mcg PO DAILY #30 caps 02/28/23 mcg (2,000 unit) capsule flash glucose sensor (FreeStyle #2 kits 05/24/23 Marcos 2 Sensor kit) alirocumab 150 mg/mL subcutaneous 150 mg subcut Q2W #2 mL 06/21/23 pen injector (Praluent Pen) calcium 600 mg (as 1 tab PO BID #60 tabs 08/18/23 carbonate)-vitamin D3 20 mcg (800 unit) tablet esomeprazole magnesium 40 mg 40 mg PO QAM #30 caps 10/22/24 capsule,delayed release sennosides 8.6 mg tablet (Natural 17.2 mg (2 x 8.6 mg) PO BEDTIME 10/23/24 Senna Laxative) constipation #60 tabs estradiol 0.01% (0.1 mg/gram) See Rx Instructions vaginal 3XW 30 01/11/25 vaginal cream days #42.5 grams famotidine 20 mg tablet 20 mg PO BEDTIME #30 tabs 05/27/25 Allergies Allergy/AdvReac Type Severity Reaction Status Date / Time pollen extracts Allergy Severe Shortness Verified 07/12/25 11:50 of Breath Review of Systems Review of Systems: Yes all other systems are reviewed and are negative [facility] Past Medical History Medical History Skin lesion of right leg Varicosities of leg Uncontrolled type 2 diabetes mellitus Diabetic polyneuropathy associated with type 2 diabetes mellitus Vitamin D deficiency Hypertension Diabetes type 2, controlled History of diverticulosis Hx of diverticulitis of colon Dyslipidemia Surgical History History of surgical removal of skin lesion (~08/23/24) History of surgery on lower extremity History of sleeve gastrectomy Hx of excision of mass Hx of colonoscopy Hx of cholecystectomy History of carpal tunnel release Hx of tubal ligation Hx of foot surgery Family History Family History Father Hypertension Mother No problems noted. Son No problems noted. Son No problems noted. Daughter Hypertension Asthma Obesity Muscle spasm Acute depression Sister No problems noted. Sister No problems noted. Brother No problems noted. Brother No problems noted. Brother No problems noted. Brother No problems noted. Brother No problems noted. Social History Social History Household Members: Family Housing: Apartment Do you presently have visiting nurse or other home services: Yes Alcohol intake: never Patient Tobacco Use Status: Never used Tobacco Advance Directives: No Advance Directives Information Provided: Yes Advance Directives Date on File: 09/17/21 Do you have a plan to hurt others: No Plan service: No Current occupational status: unemployed Physical Exam Vital Signs: Vital Signs: Last Vital Signs Pulse 63 07/12/25 12:30 Resp 15 07/12/25 12:30 BP 171/72 H 07/12/25 12:30 Pulse Ox 98 07/12/25 12:30 O2 Del Method Room Air 07/12/25 12:30 BMI result Body Mass Index 30.0 Vital signs revealed initial cyst blood pressure of 196 Exam: General: Awake, alert in no distress Head: Normocephalic, atraumatic EENT: PERRL, sclera and conjunctiva are normal, mouth with no erythema or exudates Neck: Supple, no adenopathy Lung: breath sounds symmetric, no wheezing, no rales and no rhonchi Chest: symmetric movement, nontender Heart: regular rate and rhythm, normal S1, S2 no murmurs or rubs Abdomen: soft, mild mid epigastric tenderness, nondistended, normal bowel sounds Back: no vertebral tenderness, no CVAT Extremities: no deformities, moves all extremities symmetrically, no edema Neuro: General: ?Awake, alert, oriented, mild dysarthria according to family no difficulty with word find Cranial nerves: ?Cranial nerves ?intact Strength: ?Moves all extremities symmetrically, strength 5/5 Cerebellar: ?So ttpqad-iz-djvl-to-finger test pointing on the left greater than the right, slow rapid finger movement, unable to perform hsge-ln-lwwq secondary to knee pain Psych: Pleasant, cooperativeext Medications Administered Discontinued Medications Generic Name Dose Route Start Last Admin Trade Name Freq PRN Reason Stop Dose Admin Diphenhydramine HCl 25 mg 07/12/25 12:27 07/12/25 12:31 Diphenhydramine Hcl 50 Mg/Ml Vial IVPUSH 07/12/25 12:28 25 mg ONCE ONE Administration Famotidine 20 mg 07/12/25 12:27 07/12/25 12:31 Famotidine/Pf 20 Mg/2 Ml Vial IVPUSH 07/12/25 12:28 20 mg ONCE ONE Administration Iohexol 100 ml 07/12/25 11:41 07/12/25 11:42 Iohexol 350 Mg/Ml 100 Ml Infus..Btl IV 07/12/25 11:42 75 ml ONCE ONE Administration Labetalol HCl 10 mg 07/12/25 11:58 07/12/25 12:04 Labetalol Hcl 100 Mg/20 Ml Vial IVPUSH 07/12/25 11:59 10 mg ONCE ONE Administration Tenecteplase 21 mg 07/12/25 12:20 07/12/25 12:07 Tenecteplase 50 Mg/10 Ml Kit IVPUSH 07/12/25 12:21 21 mg ONCE ONE Administration Medical Decision Making Medical Decision Making [facility] Narrative: 70-year-old female with a history asthma, pyelonephritis, diabetes, hypertension, diverticulosis, gastric sleeve surgery who presents emergency department for evaluation of stroke-like symptoms. Patient developed tingling in his in the right side of her body at 09:00 hours. She then developed difficulty speaking. I did evaluate the patient at triage and the family states that her speech is not back to normal and she is still complaining of right-sided tingling in his/numbness. Family states that throughout the week she complained of sweatiness but otherwise had no other complaints. Point of care glucose at home was 200. The patient was made a stroke protocol and brought immediately to CT scan for CT head and CT angiogram head and neck. NIH stroke scale was 4, patient had dysarthric speech, limb ataxia in both upper extremities and diminished noxious stimuli to the right side of her body compared to the left. Differential diagnosis: ?Includes but is not limited to stroke, intracranial bleed, retrievable clot, TIA, anemia, electrolyte abnormality Course: The CT scan of the patient's head revealed no acute abnormalities. CT angiogram of head and neck revealed no retrievable clots or other significant abnormalities. I did discuss the patient's presentation with our covering neurologist, Dr. Harrison and he recommended TNK if the family agreed. I did discuss the risk and benefits with the patient and the patient's family through the [facility] bag machine operator. After this discussion the family and the patient did consent to TNK and TNK 21 mg was given IV. Patient did have a systolic blood pressure above 190 and was given labetalol 10 mg IV with improvement of her blood pressure. The patient did complain of itchiness and redness to her left arm. Patient's left arm does appear to be erythematous and the patient is scratching her arm. There was no other rash noted in the patient did not have any urticaria. She denied any difficulty swallowing or swelling of her lips. She denied shortness of breath. I suspect that the patient may be having a mild allergic reaction to IV contrast. Patient was given Benadryl 25 mg IV and Pepcid 20 mg IV. I did discuss the patient's presentation over tiger connect with the covering adult high school instructor, Dr. Ngo and the patient is accepted into the intensive care unit for further management status post TNK administration Differential Diagnosis Differential Diagnoses: The differential diagnosis associated with the presentation includes (See above) Admission/Observation Consideration of admission/observation: Escalation of care including admission/observation considered (Yes) Consult Healthcare Provider Management of the patient was discussed with: Caramel Candy Maker Helper (Neurology, Dr. Harrison ; adult high school instructor, Dr. Ngo) Lab Data MDM Lab Attestation statement: I reviewed the patient's lab results. My independent interpretation patient's laboratory evaluation is as follows: CBC was normal. PT/INR and PTT were normal. Point of care glucose was elevated 207, serum glucose was elevated 244. Troponin was below detectable limits total cholesterol elevated 213. LDH elevated 132. Cluster HDL cholesterol was high at 54 07/12/25 11:42 07/12/25 11:42 Labs: Lab Results 07/12/25 07/12/25 07/12/25 Range/Units 11:42 11:50 11:54 WBC 5.0 (4.8-10.8) X10*3/uL RBC 5.23 (4.20-5.50) X10*6/uL Hgb 14.1 (12.0-16.0) g/dl Hct 42.9 (37.0-47.0) % MCV 82.0 (80.0-98.0) fL MCH 27.0 (27.0-33.0) pg MCHC 32.9 (31.0-35.0) g/dl RDW 13.0 (11.0-16.0) % Plt Count 262 (160-400) X10*3/uL MPV 10.3 (9.4-12.3) fL Immature Gran % (Auto) 0.2 (0.0-0.4) % Neut % (Auto) 45.0 (45-73) % Lymph % (Auto) 43.5 H (20-40) % [place] % (Auto) 7.3 (2-11) % Eos % (Auto) 3.0 (0-4) % Baso % (Auto) 1.0 (0-2) % Lymph # (Auto) 2.2 (1.2-4.9) X10*3/uL [place] # (Auto) 0.4 (0.1-1.2) X10*3/uL Eos # (Auto) 0.2 (0.0-0.4) X10*3/uL Baso # (Auto) 0.1 (0.0-0.2) X10*3/uL Abs Immat Gran (auto) 0.01 (0.00-0.03) X10*3/uL Absolute Neuts (auto) 2.2 (2.0-8.3) x10*3/uL Absolute Nucleated RBC 0.000 (0.0-0.012) X10*3/uL Nucleated RBC % (auto) 0.0 (0.0-0.2) /100WBC PT 10.3 L (10.9-12.4) SEC Whole Blood PT 11.7 (11.1-13.5) sec INR 0.9 (0.9-1.1) Whole Blood INR 1.0 (0.9-1.1) APTT 25.3 L (26.7-34.1) SEC Sodium 138 (135-145) mmol/L Potassium 4.3 (3.3-5.1) mmol/L Chloride 103 (96-108) mmol/L Carbon Dioxide 27 (22-29) mmol/L Anion Gap 12 (12-20) BUN 14 (9-16) mg/dL Creatinine 0.81 (0.5-1.4) mg/dL Estim Creat Clear Calc 72.7 Estimated GFR > 60 POC Glucose 207 H (60-115) mg/dL Random Glucose 224 H (60-115) mg/dL Calcium 9.3 (8.4-10.2) mg/dL Troponin I High Sens < 2.7 (<3.5-17.0) ng/L Triglycerides 138 (<150) mg/dL Cholesterol 213 H (<200) mg/dL LDL Cholesterol, Calc 132 H (<100) mg/dL HDL Cholesterol 54 (>40) mg/dL Independent Interpretation I performed an independent interpretation of an: EKG Interpretation: My independent interpretation patient's 12 EKG done on 07/12/2025 at 12:16 hours is as follows: Normal sinus rhythm rate of 66, normal WA interval, prolonged QRS duration of 106 milliseconds, normal QTC interval, no ST segment elevation, no ST segment depression, no significant T-wave abnormalities, no PACs, no PVCs. Radiology Impression Discussion of test interpretation with radiology: I discussed test interpretation with the radiologist and I have reviewed the radiologist's reading. Radiologist Impression: EXAMINATION: CT HEAD WITHOUT CONTRAST (STROKE PROTOCOL) IMPRESSION: No acute intracranial hemorrhage or acute brain abnormality by CT. CT angio head neck STROKE IMPRESSION: No main cerebral artery occlusion or embolus or gross aneurysm. No dissection or high-grade degree stenosis, vessels of the neck. This critical result was discussed with emergency physician Dr. Prateek De Leon at 11:49 AM hours on July 12, 2025. It was ascertained that the content and urgency of the report was understood at the time of direct communication. Electronically signed by: Maxi Aparicio MD 07/12/2025 11:59 AM EDT RP Independent Historian Clinical information obtained from an independent historian. History obtained from or confirmed by: Other (Daughter and granddaughter) External Record Review External record reviewed: Inpatient record Chronic Conditions Patient?s care impacted by: Diabetes and Hypertension NIH Stroke Scale Internal: Initial- Upon Arrival Level of Consciousness: Alert Level of Consciousness Questions: Answers both questions correctly Level of Consciousness Commands: Performs both tasks correctly Best Gaze: Normal Visual: No visual loss Facial Palsy: Normal Motor Arm (Right): No drift Motor Arm (Left): No drift Motor Leg (Right): No drift Motor Leg (Left): No drift Limb Ataxia: Present in two limbs Sensory: Mild to moderate sensory loss Best Language: No aphasia Dysarthia: Mild to moderate dysarthria Extinction and Inattention: No abnormality Score: 4 Critical Care Time Critical Care Time Critical Care Time: Yes Total Critical Care Time: 45 Attestation: Critical Care: The patient was critically ill with a high probability of imminent or life threatening deterioration. I spent greater than 30 minutes of discontinuous time evaluating the patient,delivering critical care at the bedside, discussing and evaluating pertinent data with consultants. Critical care time does not include time spent performing separately billable procedures or teaching. Total time spent performing critical care was 45 minutes. Discharge Plan Discharge Clinical Impression: Stroke Patient Disposition: Admitted As Inpatient Print Language: [place]ian
[2025-07-12] MEDS: iohexoL 350 MG/ML 100 ML INFUS..BTL IV (11:42)
[2025-07-12 11:46] LABS: MANUAL DIFF FLAG NO
[2025-07-12 11:48] LABS: Hematocrit 42.9 % (37.0-47.0); Hemoglobin 14.1 g/dl (12.0-16.0); Imm Gran Abs Auto 0.01 X10*3/uL (0.00-0.03); Imm Gran Pct Auto 0.2 % (0.0-0.4); Lymphocytes Absolute Auto 2.2 X10*3/uL (1.2-4.9); Mean Corpuscular HGB Conc 32.9 g/dl (31.0-35.0); Mean Corpuscular Hemoglobin 27.0 pg (27.0-33.0); Mean Corpuscular Volume 82.0 fL (80.0-98.0); NRBC Abs Auto 0.000 X10*3/uL (0.0-0.012); NRBC Pct Auto 0.0 /100WBC (0.0-0.2); Platelet Count 262 X10*3/uL (160-400); Red Blood Count 5.23 X10*6/uL (4.20-5.50); White Blood Count 5.0 X10*3/uL (4.8-10.8)
[2025-07-12 11:54] LABS: INTERNATIONAL NORM RATIO 0.9 (0.9-1.1); Prothrombin Time 10.3 SEC (10.9-12.4)
[2025-07-12 11:56] LABS: Partial Thromboplastin Time 25.3 SEC (26.7-34.1)
[2025-07-12 11:58] LABS: Stroke Lab Use COMPLETE
[2025-07-12 12:01] LABS: Prothrombin Time Whole Bld POC 11.7 sec (11.1-13.5); ~PT, ~INR - Anti Coag Clinic 1.0 (0.9-1.1)
[2025-07-12 12:02] LABS: Glucose, Whole Blood 207 mg/dL (60-115)
[2025-07-12 12:09] LABS: Troponin-I High Sensitivity < 2.7 ng/L (<3.5-17.0)
--- NOTE | 2025-07-12 12:18 | PC.NURSE ---
Pt presents to ED with family. C/o sudden onset rt sided arm numbness, slurred speech that began at 0900. Family witnessed same. Stroke alert was initiated at 1132. Pt taken for CT head/neck. Decision was made at 1205 to give TNK. Labetalol given to decrease BP. TNK given at 1207.
--- NOTE | 2025-07-12 12:20 | MHC.STROKE ---
Called to ED for stroke alert Pt arrived via triage. Pt triaged and sent directly to CT scan Pt presenting with right side facial numbness and weakness to right arm and leg. Family reporting some slurring of speech. Pt moved to bed 5. Dr. De Leon back to bedside for additional eval. NIH score 4 per provider. Spoke with Dr. Harrison and discussed the case. TNK given at 1207. Stroke Education reviewed with patient and family via ocean transportation intermediary. Pamphlet given and reviewed. All Questions answered. Risk Factors/Medical History discussed in detail with patient and family. Pt has a hx of DM and HTN. Family reports she takes insulin and BP medication. Diet, activity and social hx reviewed. Pt does not smoke/drink/use illegal substances. Denies blood thinners. Pt initially hypertensive here. Required labetolol prior to TNK for a SBP of 196. Plan of care discussed with patient and family. Will continue to assist
[2025-07-12 12:21] LABS: Anion Gap 12 (12-20); Blood Urea Nitrogen 14 mg/dL (9-16); Calcium 9.3 mg/dL (8.4-10.2); Carbon Dioxide 27 mmol/L (22-29); Chloride 103 mmol/L (96-108); Cholesterol 213 mg/dL (<200); Creatinine Clr Calc Pharmacy 72.7; Estimated Glomerular Filt Rate > 60; HDL Cholesterol 54 mg/dL (>40); Potassium 4.3 mmol/L (3.3-5.1); Sodium 138 mmol/L (135-145); Triglycerides 138 mg/dL (<150)
--- NOTE | 2025-07-12 12:48 | PM.CCHP ---
History of Present Illness Date of Service: 07/12/25 Chief Complaint: Dysarthria and numbness 70-year-old lady with PMH of hypertension, diabetes mellitus, asthma, diverticulosis, gastric sleeve surgery was apparently normal when she woke up this morning. Around 09:00 she developed tingling in the right side of the body and difficulty in speech so called EMS and brought into the ED. Upon arrival to the ED the initial blood pressure was 196/61 so was given labetalol 10 mg IV, her NIH stroke scale was for limb ataxia in both upper extremity and decreased pinprick to the right side of the body and dysarthria, CT brain was negative, CTA head and neck did not show any arterial occlusion or embolism. Dr. Harrison neurology was notified and TNK was given at 12:07PM. ICU was consulted for post TNK administration monitoring for stroke Review of Systems Review of Systems: Const : no body aches, no chills, no excessive sweating and no fatigue Eyes: no blurry vision and no change in vision ENT: no bleeding gums and no change in voice, no dizziness Card: no chest pain, no shortness of breath, no orthopnea, no PND Resp: no cough, no excessive phlegm production, no SOB GI: no abdominal pain and no nausea, no vomiting : no hematuria, no urinary frequency and no difficulty voiding Musc: no abnormal gait, no bone pain Neuro: Tingling present, dysarthria present, numbness present Psych: no behavioral changes and no change in appetite Endo: no change in body appearance, no cold intolerance, no excessive sweating and no fatigue PMFSH Past Medical History Medical History Skin lesion of right leg Varicosities of leg Uncontrolled type 2 diabetes mellitus Diabetic polyneuropathy associated with type 2 diabetes mellitus Vitamin D deficiency Hypertension Diabetes type 2, controlled History of diverticulosis Hx of diverticulitis of colon Dyslipidemia Family History Family History Father Hypertension Mother No problems noted. Son No problems noted. Son No problems noted. Daughter Hypertension Asthma Obesity Muscle spasm Acute depression Sister No problems noted. Sister No problems noted. Brother No problems noted. Brother No problems noted. Brother No problems noted. Brother No problems noted. Brother No problems noted. Surgical History Surgical History History of surgical removal of skin lesion (~08/23/24) History of surgery on lower extremity History of sleeve gastrectomy Hx of excision of mass Hx of colonoscopy Hx of cholecystectomy History of carpal tunnel release Hx of tubal ligation Hx of foot surgery Social History Social History Household Members: Family Housing: Apartment Do you presently have visiting nurse or other home services: Yes Alcohol intake: never Patient Tobacco Use Status: Never used Tobacco Advance Directives Date on File: 09/17/21 Do you have a plan to hurt others: No Plan service: No Current occupational status: unemployed Meds Allergies Allergy/AdvReac Type Severity Reaction Status Date / Time pollen extracts Allergy Severe Shortness Verified 07/12/25 11:50 of Breath Home Medications ?Medication ?Instructions ?Recorded ?Confirmed ?Last Taken ?Type chlorthalidone 25 mg tablet 25 mg PO DAILY 08/01/20 11/13/24 Unknown History enalapril maleate 20 mg tablet 20 mg PO DAILY 08/01/20 11/13/24 Unknown History loratadine 10 mg tablet 10 mg PO DAILY 08/01/20 11/13/24 Unknown History nebivolol 5 mg tablet 5 mg PO DAILY 08/01/20 11/13/24 Unknown History pregabalin 75 mg capsule 75 mg PO BEDTIME 08/01/20 11/13/24 Unknown History albuterol sulfate 90 mcg/actuation 2 puff PO Q4-6H PRN dyspnea 11/21/20 11/13/24 Unknown History aerosol inhaler blood sugar diagnostic #10 ea 11/21/20 11/13/24 Unknown History fluticasone propionate 110 1 puff inhalation BID 11/21/20 11/13/24 Unknown History mcg/actuation HFA aerosol inhaler oxycodone-acetaminophen 5 mg-325 1 tab PO Q8H PRN severe pain 09/16/21 11/13/24 Unknown History mg tablet alcohol swabs (Alcohol Prep Pads) 1 pad topical QID 11/30/21 11/13/24 Unknown History blood pressure test kit-large #1 ea 04/05/22 11/13/24 Unknown History lancets 33 gauge (TRUEplus Lancets) #100 ea 04/05/22 11/13/24 Unknown History blood sugar diagnostic (FreeStyle 04/30/22 11/13/24 Unknown History Lite Strips) blood-glucose meter (FreeStyle 04/30/22 11/13/24 Unknown History Lite Meter kit) amlodipine 10 mg tablet 10 mg PO DAILY 08/20/22 11/13/24 Unknown History metoprolol succinate 50 mg 50 mg PO DAILY 04/04/23 11/13/24 Unknown History tablet,extended release 24 hr dulaglutide 3 mg/0.5 mL mg subcut QWEEK 04/05/23 11/13/24 Unknown History [facility] Physical Exam Vital Signs: Vital Signs: Last Vital Signs Pulse 63 07/12/25 12:30 Resp 15 07/12/25 12:30 BP 171/72 H 07/12/25 12:30 Pulse Ox 98 07/12/25 12:30 O2 Del Method Room Air 07/12/25 12:30 BMI result Body Mass Index 30.0 General: not in any acute distress, ill appearing Nutritional Appearance: well nourished and overweight Eyes: appearance normal, both eyes and all related structures; Alignment and Position: alignment normal and position normal Neck: No lymphadenopathy, no thyromegaly Resp: bilateral air entry equal, no added sounds present Cardio: Regular rate, regular rhythm; Heart sounds: S1 normal heart sound present and S2 normal heart sound present GI: soft, nontender, no guarding, no hepatosplenomegaly : bladder normal to inspection, bladder normal to palpation, no renal angle tenderness Skin: no rashes or lesions noted and elasticity normal Neuro: alert, oriented x 3, decreased sensation on the right upper and lower extremity Results Labs 07/12/25 11:42 07/12/25 11:42 Labs: Laboratory Results - last 24 hr 07/12/25 07/12/25 07/12/25 11:42 11:50 11:54 MCV 82.0 MCH 27.0 MCHC 32.9 RDW 13.0 Plt Count 262 MPV 10.3 Immature Gran % (Auto) 0.2 Neut % (Auto) 45.0 Lymph % (Auto) 43.5 H Kimble % (Auto) 7.3 Eos % (Auto) 3.0 Baso % (Auto) 1.0 Lymph # (Auto) 2.2 Kimble # (Auto) 0.4 Eos # (Auto) 0.2 Baso # (Auto) 0.1 Abs Immat Gran (auto) 0.01 Absolute Neuts (auto) 2.2 Absolute Nucleated RBC 0.000 Nucleated RBC % (auto) 0.0 PT 10.3 L Whole Blood PT 11.7 INR 0.9 Whole Blood INR 1.0 APTT 25.3 L Anion Gap 12 Estim Creat Clear Calc 72.7 Estimated GFR > 60 POC Glucose 207 H Random Glucose 224 H Calcium 9.3 Troponin I High Sens < 2.7 Triglycerides 138 Cholesterol 213 H LDL Cholesterol, Calc 132 H HDL Cholesterol 54 Imaging Radiologist's Impressions: Impressions Head CT 07/12/25 11:37 IMPRESSION: No acute intracranial hemorrhage or acute brain abnormality by CT. EXAMINATION: CTA NECK WITH CONTRAST (STROKE) CTA BRAIN WITH CONTRAST (STROKE) CLINICAL INFORMATION: Right-sided numbness. Difficulty with word finding. Concerning stroke. COMPARISON: None available. TECHNIQUE: CTA of the head and neck was performed in the axial plane from the mediastinum to the skull vertex using 70 mL Omnipaque 350 intravenous contrast. Additional reformatted multiplanar images including maximum intensity projection MIP images are generated on the CT workstation. This CT examination was performed using dose optimization techniques as appropriate, variously including the following: *Automated exposure control *Adjustment of mA and/or kV according to patient size (this includes techniques or standardized protocols for targeted exams where dose is matched to indication/reason for exam; i.e. extremities or head) *Use of iterative reconstruction technique. DLP: 662 mGy centimeter. FINDINGS: The degree of stenosis determined by criteria similar to NASCET. Chest CTA: Incomplete visualization of the aortic arch demonstrated calcified plaques in the wall without focal stenosis or intimal flap. Normal diameter.. Neck CTA: Right CCA: Normal patency. No focal stenosis. No intimal flap. Right ICA: Normal patency. No focal stenosis. No intimal flap. Left CCA: Normal patency. No focal stenosis. No intimal flap. Left ICA: Normal patency. No focal stenosis. No intimal flap. V1/V2 segments: Normal patency. No focal stenosis. No intimal flap. Left vertebral artery is dominant. Both origin from the subclavian arteries. Brain CTA: Anterior cerebral circulation: ICAs: Normal patency. No focal stenosis. No abrupt cut off. ICA terminus demonstrated no vascular irregularity. Calcified plaques in the cavernous supracavernous segments. MCA's: Normal patency. No focal stenosis. No abrupt cut off. Bifurcation/trifurcation demonstrated no gross abnormality. ACAs: Normal patency. No focal stenosis. No abrupt cut off. Ophthalmic arteries are patent without gross abnormality. Anterior communicating artery is patent without gross abnormality. I do not see the posterior communicating arteries. Posterior cerebral circulation: V3/V4 segments: Calcified plaques. Normal patency. No focal stenosis. No intimal flap. Left vertebral artery is dominant. Posterior inferior cerebral arteries are patent without gross abnormality. Basilar artery is patent without focal stenosis or intimal flap. Superior cerebellar arteries are patent. No gross abnormality. energy control officer: Normal patency. No focal stenosis. No abrupt cut off. Ancillary findings: No main cerebral venous sinuses thrombosis. The thyroid gland is not enlarged. Bilateral pulmonary mosaic pattern. Multilevel cervical spondylosis pronounced at C6-7 and to a lesser extent from C2-3 to C5-6. IMPRESSION: No main cerebral artery occlusion or embolus or gross aneurysm. No dissection or high-grade degree stenosis, vessels of the neck. This critical result was discussed with emergency physician Dr. Prateek De Leon at 11:49 AM hours on July 12, 2025. It was ascertained that the content and urgency of the report was understood at the time of direct communication. Electronically signed by: Maxi Aparicio MD 07/12/2025 11:59 AM EDT Head/Neck CTA 07/12/25 11:40 IMPRESSION: No acute intracranial hemorrhage or acute brain abnormality by CT. EXAMINATION: CTA NECK WITH CONTRAST (STROKE) CTA BRAIN WITH CONTRAST (STROKE) CLINICAL INFORMATION: Right-sided numbness. Difficulty with word finding. Concerning stroke. COMPARISON: None available. TECHNIQUE: CTA of the head and neck was performed in the axial plane from the mediastinum to the skull vertex using 70 mL Omnipaque 350 intravenous contrast. Additional reformatted multiplanar images including maximum intensity projection MIP images are generated on the CT workstation. This CT examination was performed using dose optimization techniques as appropriate, variously including the following: *Automated exposure control *Adjustment of mA and/or kV according to patient size (this includes techniques or standardized protocols for targeted exams where dose is matched to indication/reason for exam; i.e. extremities or head) *Use of iterative reconstruction technique. DLP: 662 mGy centimeter. FINDINGS: The degree of stenosis determined by criteria similar to NASCET. Chest CTA: Incomplete visualization of the aortic arch demonstrated calcified plaques in the wall without focal stenosis or intimal flap. Normal diameter.. Neck CTA: Right CCA: Normal patency. No focal stenosis. No intimal flap. Right ICA: Normal patency. No focal stenosis. No intimal flap. Left CCA: Normal patency. No focal stenosis. No intimal flap. Left ICA: Normal patency. No focal stenosis. No intimal flap. V1/V2 segments: Normal patency. No focal stenosis. No intimal flap. Left vertebral artery is dominant. Both origin from the subclavian arteries. Brain CTA: Anterior cerebral circulation: ICAs: Normal patency. No focal stenosis. No abrupt cut off. ICA terminus demonstrated no vascular irregularity. Calcified plaques in the cavernous supracavernous segments. MCA's: Normal patency. No focal stenosis. No abrupt cut off. Bifurcation/trifurcation demonstrated no gross abnormality. ACAs: Normal patency. No focal stenosis. No abrupt cut off. Ophthalmic arteries are patent without gross abnormality. Anterior communicating artery is patent without gross abnormality. I do not see the posterior communicating arteries. Posterior cerebral circulation: V3/V4 segments: Calcified plaques. Normal patency. No focal stenosis. No intimal flap. Left vertebral artery is dominant. Posterior inferior cerebral arteries are patent without gross abnormality. Basilar artery is patent without focal stenosis or intimal flap. Superior cerebellar arteries are patent. No gross abnormality. energy control officer: Normal patency. No focal stenosis. No abrupt cut off. Ancillary findings: No main cerebral venous sinuses thrombosis. The thyroid gland is not enlarged. Bilateral pulmonary mosaic pattern. Multilevel cervical spondylosis pronounced at C6-7 and to a lesser extent from C2-3 to C5-6. IMPRESSION: No main cerebral artery occlusion or embolus or gross aneurysm. No dissection or high-grade degree stenosis, vessels of the neck. This critical result was discussed with emergency physician Dr. Prateek De Leon at 11:49 AM hours on July 12, 2025. It was ascertained that the content and urgency of the report was understood at the time of direct communication. Electronically signed by: Maxi Aparicio MD 07/12/2025 11:59 AM EDT Assessment and Plan (1) Uncontrolled type 2 diabetes mellitus: Status: Acute (2) Stroke: Status: Acute Plan Acute ischemic stroke: Patient presents with sudden onset tingling and numbness in the right side along with dysarthria at 09:00 on 07/12/2025 CT head negative, CTA head and neck did not show any major artery occlusion. TNK given at 12:07PM. We will admit to ICU for close neurological monitoring as per the stroke protocol Keep the systolic blood pressures less than 185mmHg We will get a CT brain if there is any new changes in her neurological status to rule out any bleed post TNK; if not we will get MRI of the brain tomorrow morning at 24 hours. We will get a TTE to rule out embolic stroke. Aspirin and statin as per Neurology. Hypertension: Since the patient has acute ischemic stroke we will allow permissive hypertension We will add antihypertensives if the systolic blood pressures are above 185 mm Hg Diabetes mellitus: We will start the patient on sliding scale insulin We will get HbA1c with morning labs Patient has diffuse rashes after TNK and CTA, possibly seems to be secondary to allergy to iodinated contrast more than TNK. Patient received Benadryl 25 mg IV and Pepcid in the ED Prophylaxis: SCD, famotidine
--- NOTE | 2025-07-12 13:31 | PM.NEUROCN ---
History of Present Illness Data of Consult Service Date: 07/12/25 Primary Care Provider: Audrey Calvo MD [facility] Reason for consult: Stroke 70 years old woman with hypertension was brought to hospital after new onset of right-sided numbness and weakness and difficulty speaking. There was no history of any obvious seizure or pain or headache. There was no history of trauma. She was evaluated for stroke in emergency situation and was found to have mild right-sided weakness and difficulty speaking and treated with TNK for suspected ischemic stroke. I saw her afterwards. She was feeling comfortable and was sleepy. Her family was on bedside when I examined her. Review of Systems Review of Systems: No recent cold or flu-like illness or trauma or seizure-like episode. No chest pain shortness breath palpitation. No exposure to new chemical. [facility] Past Medical History Medical History Skin lesion of right leg Varicosities of leg Uncontrolled type 2 diabetes mellitus Diabetic polyneuropathy associated with type 2 diabetes mellitus Vitamin D deficiency Hypertension Diabetes type 2, controlled History of diverticulosis Hx of diverticulitis of colon Dyslipidemia Family History Family History Father Hypertension Mother No problems noted. Son No problems noted. Son No problems noted. Daughter Hypertension Asthma Obesity Muscle spasm Acute depression Sister No problems noted. Sister No problems noted. Brother No problems noted. Brother No problems noted. Brother No problems noted. Brother No problems noted. Brother No problems noted. Surgical History Surgical History History of surgical removal of skin lesion (~08/23/24) History of surgery on lower extremity History of sleeve gastrectomy Hx of excision of mass Hx of colonoscopy Hx of cholecystectomy History of carpal tunnel release Hx of tubal ligation Hx of foot surgery Social History Social History Household Members: Family Housing: Apartment Do you presently have visiting nurse or other home services: Yes Alcohol intake: never Patient Tobacco Use Status: Never used Tobacco Advance Directives: No Advance Directives Information Provided: Yes Advance Directives Date on File: 09/17/21 Do you have a plan to hurt others: No Plan service: No Current occupational status: unemployed Meds Allergies Allergy/AdvReac Type Severity Reaction Status Date / Time pollen extracts Allergy Severe Shortness Verified 07/12/25 11:50 of Breath Active Medications: Current Medications Acetaminophen (Acetaminophen 325 Mg Tablet) 650 mg PO Q6H PRN PRN Reason: Pain, Mild 1-3,fever,headache Calcium Carbonate (Calcium Carbonate 750 Mg Tab.Chew) 750 mg PO Q4H PRN PRN Reason: Heartburn Dextrose (Dextrose 50 % 25 Gm/50 Ml Syringe) 25 gm IVPUSH Q15M PRN; Protocol PRN Reason: per Hypoglycemia Standing Ord. Famotidine (Famotidine/Pf 20 Mg/2 Ml Vial) 20 mg IVPUSH BID MARTHA Glucose (Glucose Gel 15 Gm Gel..Gram.) 15 gm PO Q15M PRN; Protocol PRN Reason: per Hypoglycemia Standing Ord. Insulin Human Lispro (Insulin Lispro 100 Unit/Ml 3 Ml Vial) 0 unit SUBCUT QIDACHS [facility]; Protocol Stop: 07/13/25 12:55 Magnesium Hydroxide (Milk Of Magnesia 30 Ml Oral.Susp) 30 ml PO DAILY PRN PRN Reason: Constipation Melatonin (Melatonin 3 Mg Tablet) 6 mg PO BEDTIME PRN PRN Reason: Insomnia Sodium Chloride (0.9 % Sodium Chloride Flush 3 Ml Syringe) 3 ml IVFLUSH [facility] Home Medications ?Medication ?Instructions ?Recorded ?Confirmed ?Last Taken ?Type chlorthalidone 25 mg tablet 25 mg PO DAILY 08/01/20 11/13/24 Unknown History enalapril maleate 20 mg tablet 20 mg PO DAILY 08/01/20 11/13/24 Unknown History loratadine 10 mg tablet 10 mg PO DAILY 08/01/20 11/13/24 Unknown History nebivolol 5 mg tablet 5 mg PO DAILY 08/01/20 11/13/24 Unknown History pregabalin 75 mg capsule 75 mg PO BEDTIME 08/01/20 11/13/24 Unknown History albuterol sulfate 90 mcg/actuation 2 puff PO Q4-6H PRN dyspnea 11/21/20 11/13/24 Unknown History aerosol inhaler blood sugar diagnostic #10 ea 11/21/20 11/13/24 Unknown History oxycodone-acetaminophen 5 mg-325 1 tab PO Q8H PRN severe pain 09/16/21 11/13/24 Unknown History mg tablet blood pressure test kit-large #1 ea 07/18/22 02/25/25 Unknown History lancets 33 gauge (TRUEplus Lancets) #100 ea 04/05/22 11/13/24 Unknown History blood sugar diagnostic (FreeStyle 04/30/22 11/13/24 Unknown History Lite Strips) blood-glucose meter (FreeStyle 04/30/22 11/13/24 Unknown History Lite Meter kit) amlodipine 10 mg tablet 10 mg PO DAILY 08/20/22 11/13/24 Unknown History metoprolol succinate 50 mg 50 mg PO DAILY 04/04/23 11/13/24 Unknown History tablet,extended release 24 hr capsaicin 0.1 % topical cream 1 appl topical QID PRN Pain 07/12/25 07/12/25 Unknown History dulaglutide 4.5 mg/0.5 mL 4.5 mg subcut QWEEK 07/12/25 Unknown History subcutaneous pen injector (Trulicity) fluticasone furoate 100 1 inh inhalation DAILY 07/12/25 Unknown History mcg/actuation blister powder for inhalation (Arnuity Ellipta) insulin glargine 100 unit/mL (3 20 unit subcut QPM 07/12/25 Unknown History mL) subcutaneous pen (Lantus Solostar U-100 Insulin) Physical Exam Vital Signs: Vital Signs: Last Vital Signs Pulse 63 07/12/25 13:15 Resp 14 07/12/25 13:15 BP 130/65 07/12/25 13:15 Pulse Ox 98 07/12/25 13:15 O2 Del Method Room Air 07/12/25 13:15 BMI result Body Mass Index 30.0 Neuro: Other: She is somewhat drowsy but able to open her eyes and make a conversation and answer questions. She was not in any distress. Visual snyder are full. Face was symmetrical. Tongue was midline. There was no obvious focal arm or leg weakness. When I would lifted her right hand and arm up it had mild tremor for few sec. Deep tendon reflexes are absent with flexor plantars. Results Labs 07/12/25 11:42 07/12/25 11:42 Labs: Short CBC 07/12/25 Range/Units 11:42 WBC 5.0 (4.8-10.8) X10*3/uL Hgb 14.1 (12.0-16.0) g/dl Hct 42.9 (37.0-47.0) % Plt Count 262 (160-400) X10*3/uL BMP 07/12/25 11:42 Sodium 138 Potassium 4.3 Chloride 103 Carbon Dioxide 27 BUN 14 EXAMINATION: CT HEAD WITHOUT CONTRAST (STROKE PROTOCOL) CLINICAL INFORMATION: Right-sided numbness. Difficulty with word finding concerning stroke. COMPARISON: CT brain dated June 11, 2008 is not available on PACS system. TECHNIQUE: Contiguous axial imaging was performed from the skull base to vertex without intravenous administration of contrast. This CT examination was performed using dose optimization techniques as appropriate, variously including the following: *Automated exposure control *Adjustment of mA and/or kV according to patient size (this includes techniques or standardized protocols for targeted exams where dose is matched to indication/reason for exam; i.e. extremities or head) *Use of iterative reconstruction technique. 658 mGy centimeter. FINDINGS: No acute intracranial hemorrhage, mass effect, midline shift, hydrocephalus or herniation. Story-white matter differentiation is normal. No dense MCA. Posterior cranial fossa contents demonstrated no acute hemorrhage or gross mass effect. Calcified plaques in the V4 segments of the vertebral arteries and cavernous supracavernous segments both ICAs. No air-fluid levels in the paranasal sinuses. Mild mucosal thickening, maxillary sinuses. Tympanic cavities and mastoid cells are aerated. Mild prominent lacrimal glands. CT/CT angio head neck STROKE IMPRESSION: No acute intracranial hemorrhage or acute brain abnormality by CT. EXAMINATION: CTA NECK WITH CONTRAST (STROKE) CTA BRAIN WITH CONTRAST (STROKE) CLINICAL INFORMATION: Right-sided numbness. Difficulty with word finding. Concerning stroke. COMPARISON: None available. TECHNIQUE: CTA of the head and neck was performed in the axial plane from the mediastinum to the skull vertex using 70 mL Omnipaque 350 intravenous contrast. Additional reformatted multiplanar images including maximum intensity projection MIP images are generated on the CT workstation. This CT examination was performed using dose optimization techniques as appropriate, variously including the following: *Automated exposure control *Adjustment of mA and/or kV according to patient size (this includes techniques or standardized protocols for targeted exams where dose is matched to indication/reason for exam; i.e. extremities or head) *Use of iterative reconstruction technique. DLP: 662 mGy centimeter. FINDINGS: The degree of stenosis determined by criteria similar to NASCET. Chest CTA: Incomplete visualization of the aortic arch demonstrated calcified plaques in the wall without focal stenosis or intimal flap. Normal diameter.. Neck CTA: Right CCA: Normal patency. No focal stenosis. No intimal flap. Right ICA: Normal patency. No focal stenosis. No intimal flap. Left CCA: Normal patency. No focal stenosis. No intimal flap. Left ICA: Normal patency. No focal stenosis. No intimal flap. V1/V2 segments: Normal patency. No focal stenosis. No intimal flap. Left vertebral artery is dominant. Both origin from the subclavian arteries. Brain CTA: Anterior cerebral circulation: ICAs: Normal patency. No focal stenosis. No abrupt cut off. ICA terminus demonstrated no vascular irregularity. Calcified plaques in the cavernous supracavernous segments. MCA's: Normal patency. No focal stenosis. No abrupt cut off. Bifurcation/trifurcation demonstrated no gross abnormality. ACAs: Normal patency. No focal stenosis. No abrupt cut off. Ophthalmic arteries are patent without gross abnormality. Anterior communicating artery is patent without gross abnormality. I do not see the posterior communicating arteries. Posterior cerebral circulation: V3/V4 segments: Calcified plaques. Normal patency. No focal stenosis. No intimal flap. Left vertebral artery is dominant. Posterior inferior cerebral arteries are patent without gross abnormality. Basilar artery is patent without focal stenosis or intimal flap. Superior cerebellar arteries are patent. No gross abnormality. data report analyst: Normal patency. No focal stenosis. No abrupt cut off. Ancillary findings: No main cerebral venous sinuses thrombosis. The thyroid gland is not enlarged. Bilateral pulmonary mosaic pattern. Multilevel cervical spondylosis pronounced at C6-7 and to a lesser extent from C2-3 to C5-6. IMPRESSION: No main cerebral artery occlusion or embolus or gross aneurysm. No dissection or high-grade degree stenosis, vessels of the neck. This critical result was discussed with emergency physician Dr. Prateek De Leon at 11:49 AM hours on July 12, 2025. It was ascertained that the content and urgency of the report was understood at the time of direct communication.Creatinine 0.81 Calcium 9.3 Assessment and Plan (1) Stroke: Qualifiers: CVA mechanism: unspecified Qualified Code(s): I63.9 - Cerebral infarction, unspecified Status: Acute 70 years old woman with past medical history of hypertension came to hospital with new onset of right-sided weakness and difficulty speaking and was treated with TNK for suspected ischemic stroke. Examination at this point did not reveal any focal weakness or change in speech. TNK might have helped or the mechanism might have been different. I recommend a noncontrast MRI for better definition. Otherwise TNK/tPA protocol should be followed in she should be admitted to ICU with blood pressure management. Blood thinner should be avoided for 24 hours. PT OT consultation is recommended Procedures Date of Service Date of Service: 07/12/25
[2025-07-12] MEDS: 0.9 % Sodium Chloride Flush 3 ML SYRINGE IVFLUSH ×2 (14:28→20:14)
--- OUTSIDE RECORDS SUMMARY | 2025-07-12 15:02 | XMS_ITS | Clinical Summary ---
Author Organization [facility] Address [address] [place] [id number] Phone Care Team Providers Care Maple Products Maker Name Role Phone Unavailable Primary Care Provider [...] It is not the complete legal health record.[facility]
--- OUTSIDE RECORDS SUMMARY | 2025-07-12 15:02 | XMS_ITS | Data Portability ---
Author Organization [facility] [employer] [facility], [facility] Address [address] [place] [address] Care Team Providers Care Dye Range Feeder Name Role Phone HIM CCA OTHER Assessment Encounter Date Assessment Date Assessment LastModified by Organization Details LastModified Time 01/15/2025 01/15/2025 Evaluation in the field was performed by my field operations manager colleague, as noted above, I provided [...] tick, blood 025 01/16/20 25 [facility], [address] [place] [address], [phone] 5 15:13:07 Referral None recorde d. 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 5 13:38:24 Social History None [...] ICD10 Code Diagnosis IMO Codes Diagnosis Note [id number] Ginger Steele MD Main - [facility] [address] [place] [address] 01/15/2025 13:19:27 01/15/2025 15:05:54 [facility] [id number] R73.9 [id number] Health Concerns Section Related Observation LastModified by Organization Detai ls LastModified Time None Recorded Concern Status LastModified by Organization Details LastModified Time None Recorded Advance Directives Directive None Recorded Payers Insurance Date Sequence Insurance Name Policy Number Policy Magana Covered Member ID Magana Member ID Guarantor Name 01/15/2025 1 [facility] - DOS ON OR AFTER 2022 - DUAL ELIGIBLE - LONG-TERM OPTIONS AND ONE CARE (MEDICARE REPLACEMENT/AD VANTAGE - HMO) Kalyani Ling [id number] Kalyani Ling Notes Date Note Type Note Provider Name and Address Organization Details Recorded Time 01/15/2025 text/html ROS as noted in the HPI HPI: No automobile club membership sales agent needed as this consumer loan underwriter speaks [place]. Call returned to Kalyani Rogers to triage [...] Tuesday. Pt states unable to come into [facility] or return to Urology office today. Agrees [...] ...................... ...................... ...................... ...................... ...................... ...................... ......... Database Tester Note From Yadi Ness: Sent to a call for a pt complaining of high blood sugar and possible UTI. SC8 arrives on scene, pt is alert and oriented, airway is patent. Pt's primary language is [place]. 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 Pt has history of DM2 and frequent [...] sugar and contacted clinic today, who called [facility] for a visit. Pt denies hartman, cp, sob, cough, runny nose, vomiting, diarrhea, hematuria, fever, or loc. BP:118/62, P:73, RR:18, SpO2:97%RA, T:98.6, B; Head: unremarkable; Lung sounds: clear bilaterally; Abdomen: soft, non-tender, no distention; Back: unremarkable; Extremities: unremarkable; Urine sample obtained; urine dip results: uploaded to [facility] consulted and pt is advised to have labs drawn/obtained tomorrow, and follow up with PCP. Pt is reassured BG is not in an urgent/unsafe range. Pt advised urine dip: neg; Red flags discussed. Pt has no further questions. [facility] Lab Orders: glucose, fingerstick, blood: Performed ...................... ...................... ...................... ...................... ...................... ...................... ......... [facility] Consulted: Ginger Steele ...................... ...................... ...................... ...................... ...................... ...................... ......... Disposition: Fulfilled Ginger Steele MD [address] [facility],[address], [place], [phone], Sar[place] 01/15/2025 14:53:12 OBGyn Episode No OBEpisode recorded.
--- OUTSIDE RECORDS SUMMARY | 2025-07-12 15:02 | XMS_ITS | Clinical Summary ---
Author Organization 175 [facility] Address [address] [place] [address] Phone Care Team Providers Care Drug Enforcement Agent Name Role Phone Audrey Calvo MD Primary Care Provider Allergies Active Allergy Reactions Criticality Noted Date Comments Aspirin 08/15/2018 Grass Pollen-Red Top, Standard Shortness of breath High 04/05/2023 Medications No known medications Encounters Date Type Department Care Team Description 06/10/2025 9:45 AM EDT Office Visit [facility] [address] [phone] Los Peña DPM Controlled type 2 diabetes with neuropathy (CMS/HCC V24, CMS/HCC V28) (Primary Dx); Achilles tendon tear, right, sequela; Disorder of ligament of ankle, right; Dermatophytosis, nail 05/03/2025 5:47 PM EDT - 05/03/2025 11:59 PM EDT Hospital Encounter [facility] MRI [address] [place] [id number] Achilles tendon tear, right, sequela; Disorder of ligament of ankle, right Discharge Disposition: Home or Self Care from Last 3 Months Social History Tobacco Use Types Packs/Day Years Used Date Smoking Tobacco: Never Assessed Comments Unknown Sex and Gender Information Value Date Recorded Sex Assigned at Not on file Legal Sex Female 11:08 AM EDT Gender Identity Not on file Sexual Orientation Not on file Plan of Treatment Upcoming Encounters Date Type Department Care Team ([facility] st Contact Info) Description 08/12/2025 10:00 AM EST Office Visit [facility] [address] [phone] Los Peña, MARISABEL [address] [address] Health Maintenance Due Date Last Done Comments Breast Cancer Screening 1955 Colorectal Cancer Screening: Colonoscopy 1955 Diabetes: Annual Foot Exam 1967 Diabetes: Annual Retina Eye Exam 1967 RSV Immunization Adult Patients (1 - Risk 50-74 years 1-dose series) 2007 Zoster Vaccines (3 of 3) 02/17/2024 12/23/2023, 02/2019 Falls Risk Assessment 05/16/2024 Hepatitis C Screening 05/16/2024 Medicare Annual Wellness Visit 05/16/2024 Osteoporosis Screening (Bone Density Screening) 05/16/2024 Social Influencers of Health Screening 05/16/2024 Depression Screening 09/19/2024 Diabetes: Annual Urine Albumin-Creatinine Ratio (uACR) 01/23/2025 COVID-19 Vaccine ( season) 2025 08/02/2022, 03/05/2021, 02/05/2021 Influenza Vaccine (#1) 2025 , 07/29/2023, 08/02/2022, Additional history exists Diabetes: Blood Sugar Control Test (HGBA1C) 10/26/2025 04/25/2025, 12/26/2024 Diabetes: Annual GFR (Glomerular Filtration Rate) 06/10/2026 06/10/2025 Hypertension/CHF/CAD Annual BMP Blood Test 06/10/2026 06/10/2025 Pneumococcal Vaccine: 50+ Years (3 of 3 - PCV20 or PCV21) 10/27/2026 10/27/2021, 04/01/2017, 09/05/2002 Cholesterol Screening (Lipid Panel) 02/01/2030 02/01/2025 DTaP,Tdap,and Td Vaccines (4 - Td or Tdap) 11/18/2032 11/18/2022, 05/25/2013, 01/23/2007 HIB Vaccines Aged Out No longer eligi [...] to complete this topic RSV Immunization Patients Under 20 months Aged Out No longer eligible based on patient's age to complete this topic Varicella Vaccines Aged Out No longer eligible based on patient's age to complete this topic Procedures Procedure Name Priority Date/Time Associated Diagnosis Comments COMPREHENSIVE METABOLIC PANEL Routine 06/10/2025 10:31 AM EDT Dermatophytosis, nail MR ANKLE WO CONTRAST RIGHT Routine 05/03/2025 7:03 PM EDT Achilles tendon tear, right, sequela Disorder of ligament of ankle, right from Last 3 Months Results * (ABNORMAL) Comprehensive metabolic panel (06/10/2025 10:31 AM EDT) Sodium 142 133 - 145 mmol/L LAB CHEMISTRY METHOD 06/10/2025 3:21 PM [facility] Potassium 4.3 3.5 - 5.5 mmol/L LAB CHEMISTRY METHOD 06/10/2025 3:21 PM [facility] Chloride 106 96 - 110 mmol/L LAB CHEMISTRY METHOD 06/10/2025 3:21 PM [facility] CO2 32 21 - 32 mmol/L LAB CHEMISTRY METHOD 06/10/2025 3:21 PM [facility] Anion Gap 4 3 - 11 LAB CHEMISTRY METHOD 06/10/2025 3:21 PM [facility] Glucose 166(H) 70 - 100 mg/dL LAB CHEMISTRY METHOD 06/10/2025 3:21 PM [facility] BUN 10 5 - 25 mg/dL LAB CHEMISTRY METHOD 06/10/2025 3:21 PM [facility] Creatinine 0.71 0.50 - 1.10 mg/dL LAB CHEMISTRY METHOD 06/10/2025 3:21 PM [facility] eGFR 93 >=60 mL/min/1. 73m2 LAB CHEMISTRY METHOD 06/10/2025 3:21 PM [facility] Comment:Calculation based on the Chronic Kidney Disease Epidemiology Collaboration (CKD-EPI) equation refit without adjustment for race. BUN/Creatinine Ratio 14.1 LAB CHEMISTRY METHOD 06/10/2025 3:21 PM [facility] Calcium 9.5 8.5 - 10.5 mg/dL LAB CHEMISTRY METHOD 06/10/2025 3:21 PM [facility] AST (SGOT) 17 10 - 42 unit/L LAB CHEMISTRY METHOD 06/10/2025 3:21 PM [facility] ALT (SGPT) 28 10 - 60 unit/L LAB CHEMISTRY METHOD 06/10/2025 3:21 PM [facility] Alkaline Phosphatase 126(H) 42 - 121 unit/L LAB CHEMISTRY METHOD 06/10/2025 3:21 PM [facility] Total Protein 6.8 6.0 - 8.0 g/dL LAB CHEMISTRY METHOD 06/10/2025 3:21 PM [facility] Albumin 3.9 3.2 - 5.0 g/dL LAB CHEMISTRY METHOD 06/10/2025 3:21 PM [facility] Total Bilirubin 0.9 0.0 - 1.4 mg/dL LAB CHEMISTRY METHOD 06/10/2025 3:21 PM [facility] Blood Venous blood specimen / Unknown Venipuncture / Unknown 06/10/2025 10:31 AM EDT 06/10/2025 10:31 AM EDT us Los Peña DPM LAB BLOOD ORDERABLES Final Result [facility] [address] [place] [address], [place] [phone] * MR Ankle wo Contrast Right (05/03/2025 7:03 PM EDT) Anatomical Region Laterality Modality Lower Extremities, Ankle Right Magneti c Resonance 05/06/2025 2:57 PM EDT Impressions 05/06/2025 3:53 PM EDT Achilles tendon repair with flexor hallucis longus tendon transfer. No recurrent Achilles tendon tear. -------- FINAL REPORT -------- Dictated By: LAVERNE REYNAGA Dictated Date: 05/06/2025 14:57 ET Assigned Physician: LAVERNE REYNAGA Reviewed and Electronically Signed By: LAVERNE REYNAGA Signed Date: 05/06/2025 15:53 ET Workstation ID: [id number] Transcribed By: Self Edit Transcribed Date: 05/06/2025 14:57 ET Narrative 05/06/2025 3:53 PM EDT PROCEDURE: Right ankle MRI INDICATION: Pain TECHNIQUE: Multiplanar, multisequence MRI of the right ankle Without contrast. COMPARISON: No priors available. FINDINGS: No acute fracture or suspicious marrow replacing lesion. Achilles tendinosis. Postoperative changes related to prior Achilles tendon repair and flexor hallucis longus tendon transfer with multiple bone anchors in the calcaneus posteriorly. No Achilles tendon or flexor hallucis longus tendon tear. Plantar fascia is within normal limits. Peroneal tendons are intact. Anterior tibial tendon and extensor tendons are intact. Posterior tibial tendon and flexor digitorum tendons are intact. The anterior and posterior talofibular and tibiofibular ligaments are intact. Calcaneofibular ligament is intact. Deltoid ligament complex is intact. Articular cartilage is maintained. No subtalar or tibiotalar joint effusions. Sinus tarsus signal is normal. Tarsal tunnel is normal. Lisfranc ligament complex is intact. No fluid collection, mass, or muscle atrophy. Procedure Note Laverne Reynaga MD - 05/06/2025 PROCEDURE: Right ankle MRI INDICATION: Pain TECHNIQUE: Multiplanar, multisequence MRI of the right ankle Withoutcontrast. COMPARISON: No priors available. FINDINGS: No acute fracture or suspicious marrow replacing lesion. Achilles tendinosis. Postoperative changes related to prior Achillestendon repair and flexor hallucis longus tendon transfer with multiplebone anchors in the calcaneus posteriorly. No Achilles tendon or flexorhallucis longus tendon tear. Plantar fascia is within normal limits. Peroneal tendons are intact. Anterior tibial tendon and extensor tendonsare intact. Posterior tibial tendon and flexor digitorum tendons areintact. The anterior and posterior talofibular and tibiofibular ligaments areintact. Calcaneofibular ligament is intact. Deltoid ligament complex is intact. Articular cartilage is maintained. No subtalar or tibiotalar jointeffusions. Sinus tarsus signal is normal. Tarsal tunnel is normal. Lisfranc ligament complex is intact. No fluid collection, mass, or muscle atrophy. IMPRESSION: Achilles tendon repair with flexor hallucis longus tendon transfer. Norecurrent Achilles tendon tear. -------- FINAL REPORT -------- Dictated By: LAVERNE REYNAGA Dictated Date: 05/06/2025 14:57 ET Assigned Physician: LAVERNE REYNAGA Reviewed and Electronically Signed By: LAVERNE REYNAGA Signed Date: 05/06/2025 15:53 ET Workstation ID: [id number] Transcribed By: Self Edit Transcribed Date: 05/06/2025 14:57 ET Los Peña DP IMG MRI PROCEDURES Final Re sult from Last 3 Months Insurance [facility] MEDICARE Member Subscriber Plan / Payer (Ef fective 2022-Present) Name:Kalyani Ford Relation to Subscriber:Self Name:SueKalyani Payer ID:[id number] Group ID:[id number] Type:Not on file Address: [address] [place] [id number] Care Teams Drug Enforcement Agent Relationship Specialty Start Date End Date Audrey Calvo MD [address] [place] [phone] PCP - General 02/17/24
--- NOTE | 2025-07-12 16:38 | PHA.MEDREC ---
Addendum entered by Shari Reyez [facility] 07/12/25 17:51: MED REC REVIEWED BY [facility] Addendum entered by Winnie Garcia 07/12/25 17:30: Spoke with pt daughter again about Oxycodone directions and she confirmed pt takes it 1-2 times a day if needed. Original Note: Pharmacy Consult ? Medication Reconciliation Pharmacy has completed the medication reconciliation. Spoke with pt family at bedside and they has a photo on their phone of pt med box list they read down and confirmed med rec with me. Pt confirmed she takes Praulent Q2W and is due today for it (gets from ) and Trulicity once a week on Fridays and is due for that today as well. Pt and family confirmed pt takes 20 units of Lantus at bedtime.
[2025-07-12 16:39] LABS: Glucose, Whole Blood 184 mg/dL (60-115)
--- NOTE | 2025-07-12 19:08 | HE.ICUCC ---
ICU Critical Care Nursing Note ICU Day #:1 Patient arrived from ED via stretcher at 1405, oriented to unit, TNK protocol followed Neuro: Oriented x4, denies pain or discomfort, Neuro's checked as per TNK protocol, stable and no changes Cardiac: SR, BP stable no edema noted Resp: RA no SOB GI/:NPO for 6hours post TNK, Swallow eval completed at 1830, passed and patient allowed to eat, patient voids in bedpan in ED denies need to void yet Endocrine: POC covered with Lispro sliding scale per MAR Integumentary/Musculoskeletal:3 small skin tears noted to folds skin note with pictures Psychosocial (family etc.): Daughter at bedside
--- NOTE | 2025-07-12 19:21 | HO.SKINPHOTO ---
Location: Left Groin Tear Category: Stage: Length: Width: Depth: cm Location: Right ABD fold Tear Category: Stage: Length: Width: Depth: cm Location: Left ABD fold Tear Category: Stage: Length: Width: Depth: cm
[2025-07-12 20:17] LABS: Glucose, Whole Blood 340 mg/dL (60-115)
[2025-07-13] VITALS (18 sets, daily range): BP systolic 127–168; BP diastolic 50–99; PULSE 57–82; RESP 11–18; TEMP 36–37; O2SAT 95–100; BMI 30.1
[2025-07-13 05:03] LABS: MANUAL DIFF FLAG NO
[2025-07-13 05:05] LABS: Hematocrit 43.2 % (37.0-47.0); Hemoglobin 14.1 g/dl (12.0-16.0); Imm Gran Abs Auto 0.02 X10*3/uL (0.00-0.03); Imm Gran Pct Auto 0.3 % (0.0-0.4); Lymphocytes Absolute Auto 1.1 X10*3/uL (1.2-4.9); Mean Corpuscular HGB Conc 32.6 g/dl (31.0-35.0); Mean Corpuscular Hemoglobin 26.5 pg (27.0-33.0); Mean Corpuscular Volume 81.1 fL (80.0-98.0); NRBC Abs Auto 0.000 X10*3/uL (0.0-0.012); NRBC Pct Auto 0.0 /100WBC (0.0-0.2); Platelet Count 242 X10*3/uL (160-400); Red Blood Count 5.33 X10*6/uL (4.20-5.50); White Blood Count 6.8 X10*3/uL (4.8-10.8)
[2025-07-13 05:15] LABS: Hemoglobin A1C 225.7655 umol/L; Total Hemoglobin (HGBA1C) 3647.2015 umol/L
[2025-07-13 05:20] LABS: Anion Gap 14 (12-20); Blood Urea Nitrogen 17 mg/dL (9-16); Calcium 9.2 mg/dL (8.4-10.2); Carbon Dioxide 24 mmol/L (22-29); Chloride 104 mmol/L (96-108); Cholesterol 219 mg/dL (<200); Creatinine Clr Calc Pharmacy 77.5; Estimated Glomerular Filt Rate > 60; HDL Cholesterol 57 mg/dL (>40); Potassium 4.3 mmol/L (3.3-5.1); Sodium 138 mmol/L (135-145); Triglycerides 59 mg/dL (<150)
[2025-07-13 08:11] LABS: Glucose, Whole Blood 206 mg/dL (60-115)
[2025-07-13] MEDS: 0.9 % Sodium Chloride Flush 3 ML SYRINGE IVFLUSH ×3 (09:02→21:44)
--- NOTE | 2025-07-13 10:00 | CA_ITS ---
Transthoracic Echocardiogram Patient (Last, First, Middle): Kalyani Ford I Gender: Female Date of : 1955 Age: 70 Procedure Date: 07/13/2025 Procedure Type: Transthoracic Echocardiogram Location: ICU Height: 167.64 cm Weight: 84.37 kg BSA: 1.94 m2 Heart Rate: 65 bpm BP: 133 / 79 mmHg Manager Portable: LJ Referring MD: Gerard MOCTEZUMA Environmental Health Manager: Dorian Christine MD Symptoms: stroke post tpa Study Quality: Adequate w contrast ECG Rhythm: Sinus Conclusions: - 1. Hyperdynamic LV EF of greater than 70% with impaired relaxation filling pattern 2. Normal cardiac valvular Dopplers 3. No gross pericardial effusion Findings Procedure Information Contrast agent, definity, is being given per protocol without apparent complications. The quality of the study was technically difficult. The study quality is limited by lung artifact. Left Ventricle Normal left ventricular cavity size. There is normal left ventricular wall thickness. The left ventricular systolic function is hyperdynamic. The visually estimated ejection fraction is >70%. Spectral Doppler is indicative of an impaired relaxation filling pattern. E/E prime ratio is between 8 and 15 consistent with indeterminate filling pressures. Right Ventricle Normal right ventricular cavity size and systolic function. Atria The left atrium is normal in size. Interatrial shunt cannot be excluded. The right atrium was not well visualized. Aortic Valve There is a doming trileaflet aortic valve. There is mild calcification of the aortic valve. There is no aortic valve stenosis. There is no aortic valve regurgitation. Mitral Valve There is mild anterior mitral leaflet thickening. There is mild mitral annular calcification. There is trace mitral valve regurgitation. There is no mitral valve stenosis. Pulmonic Valve The pulmonic valve was not well visualized. Tricuspid Valve Likely normal tricuspid valve structure and function. Tricuspid regurgitation envelope is inadequate for calculation of right ventricular systolic pressure. Normal right atrial pressure. Great Vessels All visible segments of the aorta are normal in size. The pulmonary artery was not well visualized. There is no dilatation of the ascending aorta measuring 3.20 cm. Venous The inferior vena cava is normal in size and collapses greater than 50% with inspiration. Pericardium/Pleural There is no evidence of pericardial effusion. Prior Study Comparison No significant change compared to prior study dated: 10/02/2018. Measurements 2D Linear Measurements IVSd: 1.17 0.6-0.9/0.6-1.0 cm LVIDd: 4.59 3.9-5.3/4.2-5.9 cm LVIDd Index: 2.37 2.4-3.2/2.2-3.1 cm/m2 LVIDs: 2.86 2.0-3.6 cm LVPWd: 0.86 0.7-1.1 cm LA Diam: 3.80 2.7-3.8/3.0-4.0 cm LAIDs Index: 1.96 1.5-2.3 cm/m2 LV Mass: 201.15 67-162/88-224 g LV Mass Index: 103.69 43-95/49-115 g/m2 LVOT Diam: 1.90 3.0+(-)1.3 cm 2D Systolic Function EF 4C: 75.90 >55% EF 2C: 69.30 >55% EF BiP: 72.60 >55% Mitral Valve MV Pk E: 0.72 MV PK A: 0.82 MV Decel Time: 225.00 E/A: 0.90 E'Lateral: 8.49 E'Medial: 9.57 E/E' Med: 7.50 E/E' Lat: 8.40 PHT: 66.00 MVA PHT: 3.33 Decel [place]: 3.19 Aortic Valve AoV Pk Anival: 1.92 AoV Pk Grad: 15.00 LVOT LVOT Pk Anival: 1.28 LVOT Mn Anival: 0.86 LVOT VTI: 0.27 LVOT Pk Grad: 7.00 LVOT Mn Grad: 3.00 LVOT Diam: 1.90 LVOT Area: 2.84 Diastolic Function MV Pk E: 0.72 MV Pk A: 0.82 E/A: 0.90 E'Medial: 9.57 E/E' Med: 7.50 E' Laterial: 8.49 E/E' Lat: 8.40 Right Ventricle TAPSE (mm): 26.70 TVS' Anival: 13.10 Tricuspid Valve RA Press: 3.00 Great Vessels Aorta Sinus of Valsalva: 2.70 2.0-3.5 cm Ao Asc: 3.20 2.1-3.4 cm Ao Arch: 2.80 Pulmonary Valve PV Pk Anival: 0.95 Peak PV Grad: 4.00 Updated in Other Vendor System with Status of Final Dorian Christine MD electronically signed on 07/14/2025 11:45:47 AM with status of Final
--- NOTE | 2025-07-13 11:07 | MHC.CM.PN ---
IMM DELIVERED VIA DAUGHTER/HCP CLARIBEL. PER DAUGHTER, PT LIVES WITH HER AND OTHER FAMILY MEMBERS. CLARIBEL IS HER 11/04 FIRST LEVELER. PT USES A WALKER FOR MOBILITY AT BASELINE. + HCP ON FILE PCP DR. GARCIA AT [facility]. DP: HOME WITH SERVICES/FAMILY SUPPORT VS STR. CM WILL AWAIT P.T. RECOMMENDATIONS AND CONTINUE TO FOLLOW.
[2025-07-13 11:33] LABS: Glucose, Whole Blood 200 mg/dL (60-115)
--- NOTE | 2025-07-13 12:31 | P.PNCC_ITS ---
Subjective Subjective Date of Service: 07/13/25 Interval History: Doing well this morning no new complaints or events. Critical Care Time (minutes): 35 Physical Exam 2 Vital Signs: Vital Signs: Last Vital Signs Temp 96.8 F 07/13/25 06:51 Pulse 68 07/13/25 10:56 Resp 16 07/13/25 10:56 BP 133/79 07/13/25 10:56 Pulse Ox 99 07/13/25 10:56 O2 Del Method Room Air 07/13/25 10:56 FiO2 80 07/12/25 17:30 BMI result Body Mass Index 30.1 General: not in any acute distress, ill appearing Nutritional Appearance: well nourished and overweight Eyes: appearance normal, both eyes and all related structures; Alignment and Position: alignment normal and position normal Neck: No lymphadenopathy, no thyromegaly Resp: bilateral air entry equal, no added sounds present Cardio: Regular rate, regular rhythm; Heart sounds: S1 normal heart sound present and S2 normal heart sound present GI: soft, nontender, no guarding, no hepatosplenomegaly : bladder normal to inspection, bladder normal to palpation, no renal angle tenderness Skin: no rashes or lesions noted and elasticity normal Neuro: alert, oriented x 3, moves all extremities Objective Data Labs 07/13/25 04:45 07/13/25 04:45 Labs: Laboratory Results - last 24 hr 07/12/25 07/12/25 07/13/25 16:36 20:14 04:45 WBC 6.8 RBC 5.33 Hgb 14.1 Hct 43.2 MCV 81.1 MCH 26.5 L MCHC 32.6 RDW 13.0 Plt Count 242 MPV 10.1 Immature Gran % (Auto) 0.3 Neut % (Auto) 80.3 H Lymph % (Auto) 16.5 L Cochran % (Auto) 2.5 Eos % (Auto) 0.0 Baso % (Auto) 0.4 Lymph # (Auto) 1.1 L [place] # (Auto) 0.2 Eos # (Auto) 0.0 Baso # (Auto) 0.0 Abs Immat Gran (auto) 0.02 Absolute Neuts (auto) 5.5 Absolute Nucleated RBC 0.000 Nucleated RBC % (auto) 0.0 Sodium 138 Potassium 4.3 Chloride 104 Carbon Dioxide 24 Anion Gap 14 BUN 17 H Creatinine 0.76 Estim Creat Clear Calc 77.5 Estimated GFR > 60 POC Glucose 184 H 340 H Random Glucose 260 H Estimat Average Glucose 177 Hemoglobin A1c % 7.8 H Calcium 9.2 Triglycerides 59 Cholesterol 219 H LDL Cholesterol, Calc 151 H HDL Cholesterol 57 07/13/25 07/13/25 08:09 11:26 WBC RBC Hgb Hct MCV MCH MCHC RDW Plt Count MPV Immature Gran % (Auto) Neut % (Auto) Lymph % (Auto) Cochran % (Auto) Eos % (Auto) Baso % (Auto) Lymph # (Auto) Cochran # (Auto) Eos # (Auto) Baso # (Auto) Abs Immat Gran (auto) Absolute Neuts (auto) Absolute Nucleated RBC Nucleated RBC % (auto) Sodium Potassium Chloride Carbon Dioxide Anion Gap BUN Creatinine Estim Creat Clear Calc Estimated GFR POC Glucose 206 H 200 H Random Glucose Estimat Average Glucose Hemoglobin A1c % Calcium Triglycerides Cholesterol LDL Cholesterol, Calc HDL Cholesterol Progress Note: A&P Assessment and plan (1) Stroke: Status: Acute (2) Uncontrolled type 2 diabetes mellitus: Status: Acute Plan Acute ischemic stroke: Patient presents with sudden onset tingling and numbness in the right side along with dysarthria at 09:00 on 07/12/2025 CT head negative, CTA head and neck did not show any major artery occlusion. TNK given at 12:07PM. Repeat MRI at 24:00 hours pending this morning, if negative for bleed we will start on aspirin Allow permissive hypertension, Keep the systolic blood pressures less than 185mmHg TTE to rule out embolic stroke pending We will start on her intensive statin, LDL 151. Hypertension: Since the patient has acute ischemic stroke we will allow permissive hypertension We will add antihypertensives if the systolic blood pressures are above 185 mm Hg Diabetes mellitus: Current on sliding scale insulin A1c 7.8 Prophylaxis: SCD, famotidine Quality Stroke Does the patient have a stroke diagnosis?: Yes Reason for No Anti-thrombotic by Day Two: N/A - Med Ordered VTE Prior VTE?: No VTE Risk Level:: Medical - low VTE Device Contraindication: N/A - Device Ordered VTE Drug Contraindication: N/A - Med Ordered
--- NOTE | 2025-07-13 15:45 | P.EN_ITS ---
Event Note Date of Service: 07/13/25 Event Note: Discussed with ICU smeller. Transferred to medical telemetry. Time Spent With Patient Time: Total time managing care of this patient today ____ minutes.
--- NOTE | 2025-07-13 15:45 | PM.EVENT ---
Event Note Date of Service: 07/13/25 Event Note: Discussed with ICU farm machinery set up mechanic. Transferred to medical telemetry. Time Spent With Patient Time: Total time managing care of this patient today ____ minutes.
[2025-07-13 16:15] LABS: Glucose, Whole Blood 200 mg/dL (60-115)
[2025-07-13 21:06] LABS: Glucose, Whole Blood 253 mg/dL (60-115)
[2025-07-14] VITALS: BP 144/67; PULSE 68; RESP 16; TEMP 36.7; O2SAT 96
[2025-07-14 03:52] VITALS: BP 149/68; PULSE 85; RESP 16; TEMP 36.6; O2SAT 97
[2025-07-14 06:00] VITALS: BMI 30.5
[2025-07-14 07:54] LABS: Glucose, Whole Blood 135 mg/dL (60-115)
[2025-07-14 08:00] VITALS: BP 160/80; PULSE 58; RESP 18; TEMP 36.2
[2025-07-14] MEDS: 0.9 % Sodium Chloride Flush 3 ML SYRINGE IVFLUSH (08:10)
--- NOTE | 2025-07-14 11:28 | P.DS_ITS ---
DS: Providers Provider Date of Service: 07/14/25 Date of admission: 07/12/25 13:06 Date of discharge: 07/14/25 Primary care physician: Audrey Calvo MD Consults: 07/12/25 12:45 Consult to Neurology Routine Consulting Provider: Manuel Harrison Reason for consultation: stroke DS: Diagnosis Discharge Diagnosis (1) Stroke: Status: Acute (2) Uncontrolled type 2 diabetes mellitus: Status: Acute DS: Summary Hospital Course Hospital Course: History and physical as per admitting provider. 70-year-old lady with PMH of h ypertension, diabetes mellitus, asthma, diverticulosis, gastric sleeve surgery was apparently normal when she woke up this morning. Around 09:00 she developed tingling in the right side of the body and difficulty in speech so called EMS and brought into the ED. Upon arrival to the ED the initial blood pressure was 196/61 so was given labetalol 10 mg IV, her NIH stroke scale was for limb ataxia in both upper extremity and decreased pinprick to the right side of the body and dysarthria, CT brain was negative, CTA head and neck did not show any arterial occlusion or embolism. Dr. Harrison neurology was notified and TNK was given at 12:07PM. ICU was consulted for post TNK administration monitoring for stroke Patient presents with sudden onset tingling and numbness in the right side along with dysarthria at 09:00 on 07/12/2025 CT head negative, CTA head and neck did not show any major artery occlusion. TNK given at 12:07PM. Repeat MRI was negative for acute abnormality Discussed with Neurology, possible aborted stroke versus possible seizure, recommend outpatient EEG Outpatient echocardiogram Continue aspirin and statin Hypertension Continue home medications Diabetes mellitus A1c 7.8 Treated with sliding scale Continue home medications Time Attestation Discharge Coordination Time (in mins): 43 Quality: Safe Use of Opioids Does Pt have an Active Cancer Diagnosis on the Problem List?: No Quality: Stroke Does the patient have a stroke diagnosis?: No Physical Exam Vital Signs: Vital Signs: Last Vital Signs Temp 97.1 F 07/14/25 08:00 Pulse 58 07/14/25 08:00 Resp 18 07/14/25 08:00 BP 160/80 H 07/14/25 08:00 Pulse Ox 97 07/14/25 03:52 O2 Del Method Room Air 07/14/25 03:52 FiO2 80 07/12/25 17:30 BMI result Body Mass Index 30.5 DS: Data Data Completed and Pending Completed studies during hospitalization [Text1]: Procedures Drainage of Left Kidney with Drainage Device, Percutaneous Approach (09/17/21) Insertion of Infusion Device into Right Cephalic Vein, Percutaneous Approach (09/17/21) Labs on day of discharge: Laboratory Results - last 24 hr 07/13/25 07/13/25 07/13/25 11:26 16:09 20:48 POC Glucose 200 H 200 H 253 H 07/14/25 07:42 POC Glucose 135 H Discharge Plan Discharge Anticipated Discharge Date/Time: 07/14/25 11:17 Patient Disposition: Home, Self-Care Discharge Diagnosis: Possible aborted stroke Possible seizure disorder Referrals: Audrey Calvo MD [Primary Care Provider, Internal Medicine] - 1 Week Discharge Medications: New aspirin 81 mg Tablet,Chewable 81 mg PO DAILY Qty: 30 0RF Continued Complete MV Adult 50 Plus 0.4-300-250 mg-mcg-mcg tablet 1 tab PO DAILY Qty: 30 3RF (DME) FreeStyle Marcos 2 [place] Misc See Rx Instructions .Route Qty: 1 0RF Rx Instructions: As directed (DME) pen needle, diabetic [BD Ultra-Fine Tracie Pen Needle] 32 gauge x 5/32 needle See Rx Instructions .Route Qty: 50 5RF Rx Instructions: injects once a day (DME) FreeStyle Marcos 2 Sensor Kit See Rx Instructions .ROUTE .COMPLEX Qty: 2 4RF Dose Instruction: USE DIRECTED. CHANGE EVERY 14 DAYS Rx Instructions: USE DIRECTED. CHANGE EVERY 14 DAYS Praluent Pen 150 mg/mL pen injector 150 mg subcut Q2W Qty: 2 7RF famotidine 20 mg tablet 20 mg PO BEDTIME Qty: 30 3RF oxycodone-acetaminophen 5-325 mg tablet 1 tab PO Q12H PRN (Reason: severe pain) capsaicin 0.1 % cream 1 appl topical QID PRN (Reason: Pain) insulin glargine [Lantus Solostar U-100 Insulin] 100 unit/mL (3 mL) insulin pen 20 unit subcut BEDTIME fluticasone furoate [Arnuity Ellipta] 100 mcg/actuation blister with device 1 inh inhalation DAILY Trulicity 4.5 mg/0.5 mL pen injector 4.5 mg subcut FR esomeprazole magnesium 40 mg capsule,delayed release(DR/EC) 40 mg PO DAILY@0630 estradiol 0.01 % (0.1 mg/gram) cream See Rx Instructions vaginal 3XW PRN (Reason: Vaginal Irritation) Rx Instructions: vaginal 3XW apply pea sized amount to urethra ezetimibe 10 mg tablet 10 mg PO DAILY (DME) blood sugar diagnostic Strip See Rx Instructions Not Applicable BID Qty: 10 Rx Instructions: As directed albuterol sulfate 90 mcg/actuation HFA aerosol inhaler 2 puff PO Q4-6H PRN (Reason: dyspnea) pregabalin 75 mg capsule 75 mg PO BEDTIME chlorthalidone 25 mg tablet 25 mg PO DAILY enalapril maleate 20 mg tablet 20 mg PO DAILY (DME) FreeStyle Lite Strips Strip See Rx Instructions .Route Rx Instructions: As directed (DME) blood-glucose meter [FreeStyle Lite Meter] Kit See Rx Instructions .Route Rx Instructions: As directed (DME) lancets [TRUEplus Lancets] 33 gauge misc See Rx Instructions Not Applicable BID Qty: 100 Rx Instructions: As directed (DME) blood pressure test kit-large Kit See Rx Instructions .ROUTE DAILY Qty: 1 Rx Instructions: As directed rosuvastatin 40 mg tablet 40 mg PO BEDTIME Qty: 30 5RF (DME) blood-glucose meter [FreeStyle Lite Meter] Kit See Rx Instructions .Route Qty: 1 0RF Rx Instructions: As directed- checks 4 X/day Discharge Orders: Discharge Order (Routine); Ordered 07/14/25 Ordered By: Mavis Lyon Diet: Advance to usual diet Activity on Discharge: As tolerated Stand Alone Forms: Patient Portal Discharge page Print Language: Urdu Care Plan Goals: Follow up with primary care provider to schedule outpatient EEG to rule out seizure disorder and echocardiogram Health Concerns: Possible aborted stroke Possible seizure disorder Plan of Treatment: Follow up with primary care provider as needed Take all medications as prescribed Assessment: See discharge summary
--- NOTE | 2025-07-14 11:48 | MHC.CM.PN ---
Patient has been medically cleared for dc to home today, self care. Last IMM was addressed yesterday.
[2025-07-14 11:50] VITALS: BP 130/60; PULSE 71; RESP 18; TEMP 37.1; O2SAT 97
[2025-07-14 12:22] LABS: Glucose, Whole Blood 203 mg/dL (60-115)
== END 2025-07-14 13:21 | disposition home or self-care (01) | DRG 63 ==
LOC: HO.ED 13:01 → HO.EDOVER 13:07 → HO.ICU 13:20 → HO.IMC 07-13 14:54
PROVIDERS: Admitting Provider Internal Medicine Critical Care Medicine; Emergency Provider Emergency Medicine Emergency Medical Services; PCP Internal Medicine; Visit Provider Nurse Practitioner Acute Care
DX: I63.9 Cerebral infarction, unspecified (principal); R29.704 NIHSS score 4; R20.2 Paresthesia of skin; Z98.84 Bariatric surgery status; I10 Essential (primary) hypertension; E11.42 Type 2 diabetes mellitus with diabetic polyneuropathy; G40.909 Epilepsy, unspecified, not intractable, without status epilepticus; Z79.82 Long term (current) use of aspirin; Z79.51 Long term (current) use of inhaled steroids; Z79.85 Long-term (current) use of injectable non-insulin antidiabetic drugs; Z79.899 Other long term (current) drug therapy
CPT/HCPCS: 36415; 70450; 70496; 70498; 70551; 80048; 80061; 82947; 83036; 84484; 85025; 85610; 85730; 93005; 93306; 97162; 99285; J0165; J1200; J1308; J1920; J2919; J3101; Q9957; Q9967

== ENCOUNTER → 2025-07-12 11:26 | Outpatient (BNV) | payer OTHER, SELFPAY | PROVIDERS: Emergency Provider Emergency Medicine Emergency Medical Services; PCP Internal Medicine; Visit Provider Internal Medicine Critical Care Medicine | DX: I63.9 Cerebral infarction, unspecified (principal); E11.65 Type 2 diabetes mellitus with hyperglycemia | CPT/HCPCS: 99291 ==

== ENCOUNTER → 2025-07-12 11:37 | Outpatient (BNV) | payer OTHER, SELFPAY | PROVIDERS: Emergency Provider Emergency Medicine Emergency Medical Services; PCP Internal Medicine; Visit Provider Radiology Diagnostic Radiology | DX: R20.0 Anesthesia of skin (principal); R47.01 Aphasia | CPT/HCPCS: 70450; 70496; 70498 ==

== ENCOUNTER → 2025-07-12 11:39 | Outpatient (BNV) | payer OTHER, SELFPAY | PROVIDERS: Emergency Provider Emergency Medicine Emergency Medical Services; PCP Internal Medicine; Visit Provider Internal Medicine Cardiovascular Disease | DX: R94.31 Abnormal electrocardiogram [ECG] [EKG] (principal); I63.9 Cerebral infarction, unspecified | CPT/HCPCS: 93010 ==

== ENCOUNTER 2025-07-12 13:06 | Outpatient (BNV) | payer OTHER, SELFPAY | END 2025-07-13 10:00 | PROVIDERS: Admitting Provider Internal Medicine Critical Care Medicine; Emergency Provider Emergency Medicine Emergency Medical Services; PCP Internal Medicine; Visit Provider Internal Medicine Cardiovascular Disease | DX: I63.9 Cerebral infarction, unspecified (principal); I35.8 Other nonrheumatic aortic valve disorders; I34.81 Nonrheumatic mitral (valve) annulus calcification | CPT/HCPCS: 93306 ==

== ENCOUNTER 2025-07-12 13:06 | Outpatient (BNV) | payer OTHER, SELFPAY | END 2025-07-13 12:45 | PROVIDERS: Admitting Provider Internal Medicine Critical Care Medicine; Emergency Provider Emergency Medicine Emergency Medical Services; PCP Internal Medicine; Visit Provider Radiology Diagnostic Radiology | DX: I63.9 Cerebral infarction, unspecified (principal) | CPT/HCPCS: 70551 ==

== ENCOUNTER → 2025-07-12 13:06 | Outpatient (BNV) | payer OTHER, SELFPAY | PROVIDERS: Admitting Provider Internal Medicine Critical Care Medicine; Emergency Provider Emergency Medicine Emergency Medical Services; PCP Internal Medicine; Visit Provider Nurse Practitioner Acute Care | DX: I63.9 Cerebral infarction, unspecified (principal); E11.65 Type 2 diabetes mellitus with hyperglycemia | CPT/HCPCS: 99239; 99499 ==

== ENCOUNTER → 2025-07-12 13:06 | Outpatient (BNV) | payer OTHER, SELFPAY | PROVIDERS: Admitting Provider Internal Medicine Critical Care Medicine; Emergency Provider Emergency Medicine Emergency Medical Services; PCP Internal Medicine; Visit Provider Psychiatry & Neurology Neurology | DX: I63.9 Cerebral infarction, unspecified (principal) | CPT/HCPCS: 99222 ==

== ENCOUNTER 2025-07-15 10:31 | Outpatient (AMB) | payer OTHER, SELFPAY ==
--- NOTE | 2025-07-15 10:32 | MHC.OFFVIS ---
Intake Visit Reasons: 6m follow up Intake Note: Patient is present for 6M F/U Urology Medication:ESTRADIOL Antibiotic Allergy:NONE Blood Thinner:NONE Teacher Physically Impaired Required: Yes Teacher Physically Impaired Services: Teacher Physically Impaired Present Teacher Physically Impaired Name: Phuc [id number] Allergies pollen extracts Allergy (Severe, Verified 07/15/25 10:51) Shortness of Breath Medication List - Last Reconciled 07/15/25 by Elina Swift, EDI ARCHITECT-BC albuterol sulfate 90 mcg/actuation 2 puffs PO Q4-6H PRN alirocumab (Praluent Pen) 150 mg subcut Q2W aspirin 81 mg PO DAILY blood pressure test kit-large As directed blood sugar diagnostic As directed blood sugar diagnostic (FreeStyle Lite Strips) As directed blood-glucose meter (FreeStyle Lite Meter kit) As directed blood-glucose meter (FreeStyle Lite Meter kit) As directed- checks 4 X/day capsaicin 0.1% 1 appl topical QID PRN chlorthalidone 25 mg PO DAILY dulaglutide (Trulicity) 4.5 mg subcut FR enalapril maleate 20 mg PO DAILY esomeprazole magnesium 40 mg PO DAILY@0630 estradiol 0.01%(0.1mg/gram) vaginal 3XW apply pea sized amount to urethra ezetimibe 10 mg PO DAILY famotidine 20 mg PO BEDTIME flash glucose scanning reader (FreeStyle Marcos 2 [place]) As directed flash glucose sensor (FreeStyle Marcos 2 Sensor kit) USE DIRECTED. CHANGE EVERY 14 DAYS fluticasone furoate 100 mcg/actuation (Arnuity Ellipta) 1 inh inhalation DAILY insulin glargine (Lantus Solostar U-100 Insulin) 20 units subcut BEDTIME lancets (TRUEplus Lancets) As directed bhenkxlj-pae-RX-lycopen-lutein 0.4 mg-300 mcg- 250 mcg (Complete Multivitamin Adult 50 Plus) 1 tab PO DAILY oxycodone-acetaminophen 5-325 mg 1 tab PO Q12H PRN pen needle, diabetic (BD Ultra-Fine Tracie Pen Needle) injects once a day pregabalin 75 mg PO BEDTIME rosuvastatin 40 mg PO BEDTIME HPI Comments Details: Kalyani is a pleasant 70-year-old Pashto-speaking female patient of Dr. Prasad is accompanied by her daughter at today's office visit. She has a past medical history of varicosities of the leg, uncontrolled type 2 diabetes, diabetic polyneuropathy, vitamin-D deficiency, hypertension, diverticulosis, and dyslipidemia. She presents to the office today for follow-up of her recurrent urinary tract infections. In discussion with the patient today she reports she has not had any UTIs since her last office visit here however does continue to experience episodes of dysuria and bladder pressure. In office urinalysis results reviewed with the patient today trace leukocytes negative nitrates and negative microscopic hematuria. We did discuss potential causes of dysuria and bladder pressure. She does endorse to drinking increased amounts of caffeine/coffee daily. We did discussed correlation of bladder triggers and irritants in relation to lower urinary tract symptoms. She reports compliance with Estrace cream as prescribed. She denies urinary urgency, urinary frequency, incontinence, nocturia, hematuria, foul smelling urine, changes to urinary stream, flank pain, fever, and or chills. In review of patient's chart it appears urine cultures are as follows: Urine cultures: 07/12, 10/13 , and 11/13 E coli. We did discuss also correlation of uncontrolled diabetes with lower urinary tract symptoms as well as overall health and well-being. In review of patient's chart it appears A1c 07/13 7.8. All questions were answered. She otherwise offers no other issues or concerns at this time. [facility] Medical History Skin lesion of right leg Varicosities of leg Uncontrolled type 2 diabetes mellitus Diabetic polyneuropathy associated with type 2 diabetes mellitus Vitamin D deficiency Hypertension Diabetes type 2, controlled History of diverticulosis Hx of diverticulitis of colon Dyslipidemia Surgical History History of surgical removal of skin lesion (~08/23/24) History of surgery on lower extremity History of sleeve gastrectomy Hx of excision of mass Hx of colonoscopy Hx of cholecystectomy History of carpal tunnel release Hx of tubal ligation Hx of foot surgery Family History Father Hypertension Mother No problems noted. Son No problems noted. Son No problems noted. Daughter Hypertension Asthma Obesity Muscle spasm Acute depression Sister No problems noted. Sister No problems noted. Brother No problems noted. Brother No problems noted. Brother No problems noted. Brother No problems noted. Brother No problems noted. Social History Household Members: Children Household Members Other:: 7 Housing: Apartment Do you presently have visiting nurse or other home services: Yes (once monthly) Alcohol intake: never Patient Tobacco Use Status: Never used Tobacco Advance Directives Date on File: 09/17/21 service: No Current occupational status: unemployed Review of Systems Const All systems reviewed & are unremarkable except as noted in HPI and below Physical Exam Const General: cooperative, healthy appearing, comfortable, no acute distress, well developed, alert and awake Orientation/consciousness: patient oriented x3 Limitations: language barrier HEENT Head: Yes normal to inspection, Yes normocephalic and Yes atraumatic Ears: hearing grossly normal bilaterally Eyes General: appearance normal, both eyes and all related structures Neck Neck: Yes normal visual inspection and Yes trachea midline Chest Chest palpation & inspection: normal inspection of the chest Resp Effort & Inspection: normal respiratory effort and able to speak in complete sentences Cardio Rate: regular rate GI Inspection: Yes normal to inspection General: Yes no CVA tenderness Back/Spine/Pelvis Back: no CVA tenderness Skin General skin exam: no rashes or lesions noted Neuro General: patient oriented x3 Extrem General: Yes normal to inspection Psych Appearance: grossly normal and well kempt Mental Status: mental status grossly normal Speech and movement: Normal speech and movement present and Clear speech present Affect: normal affect Attitude: cooperative Thought process: Normal thought process present Thought content: Normal thought content present Insight: Fair insight present (Psych) Judgement: Fair judgement present (Psych) Results AMB Urinalysis, Automated UA Leukoctes 15 Claire/uL Last Edit by DEREK De La Rosa on 07/15/25 10:51 UA Nitrite Negative Last Edit by DEREK De La Rosa on 07/15/25 10:51 UA Urobilinogen 0.2 mg/dL Last Edit by DEREK De La Rosa on 07/15/25 10:51 UA Protein 30 mg/dL Last Edit by DEREK De La Rosa on 07/15/25 10:51 UA pH 6.0 Last Edit by DEREK De La Rosa on 07/15/25 10:51 UA Blood 0 Sj/uL Last Edit by DEREK De La Rosa on 07/15/25 10:51 UA Specific [place] 1.030 Last Edit by DEREK De La Rosa on 07/15/25 10:51 UA Ketone Negative Last Edit by DEREK De La Rosa on 07/15/25 10:51 UA Bilirubin 1 mg/dL Last Edit by DEREK De La Rosa on 07/15/25 10:51 UA Glucose 0 mg/dL Last Edit by DEREK De La Rosa on 07/15/25 10:51 Assessment & Plan Assessment & Plan (1) Recurrent UTI: Code(s): N39.0 - Urinary tract infection, site not specified Category: Medical (2) Dysuria: Code(s): R30.0 - Dysuria Category: Medical (3) Sensation of pressure in bladder area: Code(s): R39.89 - Other symptoms and signs involving the genitourinary system Category: Medical Plan In office urinalysis results reviewed with the patient today; as noted above; will send for urine culture. We did discussed bladder triggers and irritants We also discussed further treatment options and risks and benefits of these treatment options. Continue Estrace cream as discussed and prescribed. All questions were answered. Follow-up in 4-6 months; or sooner with any issues, concerns, and or questions. Orders: Orders AMB Urinalysis Automated Today Z13.9 - Encounter for screening, unspecified Urine Culture Today N39.0 - Urinary tract infection, site not specified Medications: New estradiol 0.01%(0.1mg/gram) vaginal 3XW apply pea sized amount to urethra 42.5 grams 3RF Vaginal Irritation Patient Instructions: The patient had an opportunity to ask questions regarding the treatment plan. All questions were answered. Physical exam, labs, and imaging were discussed and reviewed in detail. As well as risks, benefits, and discussion of treatment choices. No major barriers to understanding were identified. The patient expressed understanding and agreement with the above treatment plan. The patient was made aware they should contact our office by phone for worsening of their current condition, the appearance of new symptoms, or with any questions or concerns. Compliance is encouraged with any medications and follow up testing that is ordered. It is a privilege to be allowed the opportunity to participate in? your urological care.? Again, if you have any questions or concerns If you have any questions or concerns please do not hesitate to contact me. The office is [phone]. This note is constructed using voice recognition software. While every effort has been made to ensure accuracy shelter advocate errors may have been included. Yours sincerely, PEGGY Saucedo Coding Level of Care Code Est Pt Level 3 (99363) Complex EM visit Add On G2211 Diagnoses Recurrent UTI N39.0 Dysuria R30.0 Sensation of pressure in bladder area R39.89
--- OUTSIDE RECORDS SUMMARY | 2025-07-15 12:49 | XMS_ITS | Encounter Summary ---
Author Organization [employer] Address [address] [place] [address] [address] [place] [address] Care Team Providers Care Drug Abuse Counselor Name Role Phone Audrey Calvo MD Primary Care Provider + Reason for Visit * Reason Onset Date Comments Care Coordination 07/12/2025 Encounter Details Date Type Department Care Team ([facility] st Contact Info) Description 07/12/2025 Telephone [facility] [address] [place] [address] Audrey Calvo MD [address] [place] [address] Care Coordination Social History Tobacco Use Types [...] the past 12 months, has t he [employer], gas, oil or water [employer] threatened to shut off services in your [...] Telephone Encounter - Aretha Segundo RN - 07/15/2025 12:11 PM EDT Noted. Patient admitted to [facility] from 07/12-07/14 for possible aborted stroke and/or possible seizuredisorder. Patient currently scheduled for HDF on 07/30/25 with PCP. RN called patient [phone] however no answer, RN left VM requesting CB to red team nurses. TC placed to [phone], spoke to daughter (on HIPAA) who reports the patient is doing well and does not have any concerns at this time. RN did offer to move HDF appointment to a sooner date however patient and daughter are comfortable waiting until 07/30/25. Daughter/patient to f/u PRN. * Telephone Encounter - Charlette Mejía RN - 07/12/2025 10:38 AM EDT TC placed to pt and a message wasa left for a call back, will make another attempt to contact pt orpt daughter. . TC placed to pt daughter who reports the same symptoms below educated daughter the importance of ruling out a stroke as there is a 4 hour window for treatment and this now has happened2 hours ago. Daughter will bring pt to [facility] and and expect by private car has jorge called. Will send message to red team nurses for status check. Spoke with pt daughter (Loly) who stated that her mother woke up around 9 am with R side numbness unable to move or speak when she was able to speak she contacted her son to help her get up. Pt daughter was advise to seek emergency but mother denied. * Telephone Encounter - Selvin Pepe MA - 07/12/2025 10:29 AM EDT Spoke with pt daughter (Loly) who stated that her mother woke up around 9 am with R side numbness unable to move or speak when she was able to speak she contacted her son to help her get up. Pt daughter was advise to seek emergency but mother denied. documented in this encounter Plan of Treatment Upcoming Encounters Date Type Department Care Team (Late st Contact Info) Description 07/16/2025 11:30 AM EDT Immunization [facility] [address] [place] [id number] 07/30/2025 10:45 AM EST Office Visit [facility] [address] [place] [phone] Audrey Calvo MD [address] [place] [id number] 09/10/2025 11:00 AM EST Office Visit [address] [address] 09/24/2025 2:00 PM EST Telemedicine [facility] [address] [place] [address] Cristopher Lu, PharmD [address] [place] [address] 11/28/2025 1:00 PM EDT Office Visit [facility] [address], [place] [phone] Liya Perez documented as of this encounter Visit Diagnoses Not on filedocumented in this encounter Additional Health Concerns Assessment Noted Time PHQ-9 Depression Total Score: 0 12/27/19 25 1:57 PM EDT documented as of this encounter Care Teams Drug Abuse Counselor Relationship Specialty Start Date End Date Audrey Calvo MD [address] [place] [phone] PCP - General Family Medicine 05/09/17 documented as of this encounter
--- OUTSIDE RECORDS SUMMARY | 2025-07-15 12:49 | XMS_ITS | Encounter Summary ---
Author Organization [employer] Address [address] [place] [address] 7 [place] [address] Care Team Providers Care Martial Arts Instructor Name Role Phone Audrey Calvo MD Primary Care Provider + Reason for Visit * Reason Comments Med Refill Encounter Details Date Type Department Care Team ([facility] st Contact Info) Description 07/15/2025 Refill [facility] MED & PEDS [address] [place] [address] Audrey Calvo MD [address] [place] [address] Achilles tendinitis of right lower extremity Social [...] Info) Description 07/16/2025 11:30 AM EDT Immunization [facility] [address] [place] [address] 07/30/2025 10:45 AM EST Office Visit [address] [address] Audrey Calvo MD [address] [place] [address] 09/10/2025 11:00 AM EST Office Visit [address] [address] 09/24/2025 2:00 PM EST Telemedicine [address] [address] Cristopher Lu, PharmD [address] [place] [address] 11/28/2025 1:00 PM EDT Office Visit [facility] ADULT DENTAL [address] [place] [address] Liya Perez documented as of this encounter Visit Diagnoses Diagnosis Achilles tendinitis of right lower extremity documented in this encounter Additional Health Concerns Assessment Noted Time PHQ-9 Depression Total Score: 0 12/27/19 25 1:57 PM EDT documented as of this encounter Care Teams Martial Arts Instructor Relationship Specialty Start Date End Date Audrey Calvo MD [address] [place] [address] PCP - General Family Medicine 05/09/17 documented as of this encounter
--- OUTSIDE RECORDS SUMMARY | 2025-07-15 12:49 | XMS_ITS | Encounter Summary ---
Author Organization [employer] Address [address] [place] [address] 7 [place] [address] Care Team Providers Care Aircraft Accessories Mechanic Name Role Phone Audrey Calvo MD Primary Care Provider + Reason for Visit * Reason Comments Med Refill Encounter Details Date Type Department Care Team ([facility] st Contact Info) Description 08/18/2023 Refill [facility] MED[facility]INE [address] [place] [address] Audrey Calvo MD [address] [place] [address] Social History Tobacco Use Types Packs/Day Years [...] Info) Description 07/16/2025 11:30 AM EDT Immunization [facility] [address] [place] [address] 07/30/2025 10:45 AM EST Office Visit [facility] [address] [place] [address] Audrey Calvo MD [address] [place] [address] 09/10/2025 11:00 AM EST Office Visit [address] [address] 09/24/2025 2:00 PM EST Telemedicine [facility] [address] [place] [address] Cristopher Lu, PharmD [address] [place] [address] 11/28/2025 1:00 PM EDT Office Visit [facility] ADULT DENTAL [address] [place] [address] Liya Perez documented as of this encounter Visit Diagnoses Not on filedocumented in this encounter Additional Health Concerns Assessment Noted Time PHQ-9 Depression Total Score: 0 12/23/19 23 9:08 AM EDT documented as of this encounter Care Teams Aircraft Accessories Mechanic Relationship Specialty Start Date End Date Audrey Calvo MD [address] [place] [address] PCP - General Family Medicine 05/09/17 documented as of this encounter
--- OUTSIDE RECORDS SUMMARY | 2025-07-15 12:50 | XMS_ITS | Encounter Summary ---
Author Organization [employer] Address [address] [place] [address] 7 [place] [address] Care Team Providers Care Tripper Name Role Phone Audrey Calvo MD Primary Care Provider + Reason for Visit * Reason Comments Med Refill Encounter Details Date Type Department Care Team ([facility] st Contact Info) Description 10/06/2023 Refill [facility] [address] [place], [place] [phone] Audrey Calvo MD 230 [place] [address] Social History Tobacco Use Types Packs/Day Years [...] Info) Description 07/16/2025 11:30 AM EDT Immunization [facility] [address] [place] [address] 07/30/2025 10:45 AM EST Office Visit [facility] [address] [place] [address] Audrey Calvo MD [address] [place] [address] 09/10/2025 11:00 AM EST Office Visit [address] [address] 09/24/2025 2:00 PM EST Telemedicine [facility] [address] [place] [address] Cristopher Lu, PharmD [address] [place] [address] 11/28/2025 1:00 PM EDT Office Visit [facility] ADULT DENTAL [address] [place] [address] Liya Perez documented as of this encounter Visit Diagnoses Not on filedocumented in this encounter Additional Health Concerns Assessment Noted Time PHQ-9 Depression Total Score: 0 12/23/19 23 9:08 AM EDT documented as of this encounter Care Teams Tripper Relationship Specialty Start Date End Date Audrey Calvo MD [address] [place] [address] PCP - General Family Medicine 05/09/17 documented as of this encounter
--- OUTSIDE RECORDS SUMMARY | 2025-07-15 12:50 | XMS_ITS | Encounter Summary ---
Author Organization [employer] Address [address] [place] [address] [facility] [place] [address] Care Team Providers Care Emergency Room Clerk Name Role Phone Audrey Calvo MD Primary Care Provider + Encounter Details Date Type Department Care Team (Late st Contact Info) Description 10/07/2022 Orders Only [facility] MEDICINE [address] [place] [address] Nila Gallardo LPN Social History Tobacco Use [...] Info) Description 07/16/2025 11:30 AM EDT Immunization [facility] MEDICINE [address] [place] [address] 07/30/2025 10:45 AM EST Office Visit [address] [address] Audrey Calvo MD [address] [place] [address] 09/10/2025 11:00 AM EST Office Visit [address] [address] 09/24/2025 2:00 PM EST Telemedicine [address] [place] [address] Cristopher Lu, Kelli [address] [place] [address] 11/28/2025 1:00 PM EDT Office Visit [facility] ADULT DENTAL [address] [place] [address] Liya Perez documented as of this encounter Visit Diagnoses Not on filedocumented in this encounter Care Teams Emergency Room Clerk Relationship Specialty Start Date End Date Audrey Calvo MD [address] [place] [address] PCP - General Family Medicine 05/09/17 documented as of this encounter
--- OUTSIDE RECORDS SUMMARY | 2025-07-15 12:50 | XMS_ITS | Encounter Summary ---
Author Organization [employer] Address [address] [facility] 7t [place] [address] Care Team Providers Care Plywood Scarfer Tender Name Role Phone Audrey Calvo MD Primary Care Provider + Encounter Details Date Type Department Care Team ([facility] Contact Info) Description 07/02/[address] [facility] [address] [place] [address] Cassia Juarez MD [address] [place] [address] Social History Tobacco Use Types Packs/Day Years [...] Info) Description 07/16/2025 11:[address] [facility] [address] [place] [address] 07/30/2025 10:45 AM EST Office Visit [facility] [address] [place] [address] Audrey Calvo MD [address] [place] [address] 09/10/2025 11:00 AM EST Office Visit [facility] [address] [place] [address] 09/24/2025 2:[address] [facility] [address] [place] [address] Cristopher Lu, MayankD [address] [place] [address] 11/28/2025 1:00 PM EDT Office Visit [facility] ADULT D[facility] [address] [place] [address] Liya Perez documented as of this encounter Visit Diagnoses Not on filedocumented in this encounter Additional Health Concerns Assessment Noted Time PHQ-9 Depression Total Score: 3 02/14/20 24 1:55 PM EDT documented as of this encounter Care Teams Plywood Scarfer Tender Relationship Specialty Start Date End Date Audrey Calvo MD [address] [place] [address] PCP - General Family Medicine 05/09/17 documented as of this encounter
--- OUTSIDE RECORDS SUMMARY | 2025-07-15 12:50 | XMS_ITS | Encounter Summary ---
Author Organization [employer] Address [address] [facility] 7t [place] [address] Care Team Providers Care Finisher Accordion Name Role Phone Audrey Calvo MD Primary Care Provider + Reason for Visit * Reason Comments Med Refill Encounter Details Date Type Department Care Team ([facility] st Contact Info) Description 07/06/2023 Refill [facility] CH[facility] MED & PEDS [address] [place], [place] [phone] Audrey Calvo MD [address] [place] [address] Lumbago with sciatica, unspecified side Social History [...] Info) Description 07/16/2025 11:30 AM EDT Immunization [facility] MEDICINE [address] [place] [address] 07/30/2025 10:45 AM EST Office Visit [facility] MEDICINE [address] [place] [address] Audrey Calvo MD [address] [place] [address] 09/10/2025 11:00 AM EST Office Visit [address] [address] 09/24/2025 2:00 PM EST Telemedicine [facility] MEDICINE [address] [place] [address] Cristopher Lu, PharmD [address] [place] [address] 11/28/2025 1:00 PM EDT Office Visit [facility] ADULT DENTAL [address] [place] [address] Liya Perez documented as of this encounter Visit Diagnoses Diagnosis Lumbago with sciatica, unspecified side documented in this encounter Additional Health Concerns Assessment Noted Time PHQ-9 Depression Total Score: 0 12/23/19 23 9:08 AM EDT documented as of this encounter Care Teams Finisher Accordion Relationship Specialty Start Date End Date Audrey Calvo MD [address] [place] [address] PCP - General Family Medicine 05/09/17 documented as of this encounter
--- OUTSIDE RECORDS SUMMARY | 2025-07-15 12:50 | XMS_ITS | Data Portability ---
Author Organization [employer] [facility], [employer] [facility] Address [address] [place] [address] Care Team Providers Care Drill Hand Name Role Phone HIM CCA OTHER Assessment Encounter Date Assessment Date Assessment LastModified by Organization Details LastModified Time 01/15/2025 01/15/2025 Evaluation in the field was performed by my career services representative colleague, as noted above, I provided real-time [...] tick, blood 025 01/16/20 25 [facility], [address] [place] [address], [phone] 5 15:13:07 Referral None recorde d. 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 5 13:38:24 Social History None [...] ICD10 Code Diagnosis IMO Codes Diagnosis Note [id number] Ginger Steele MD Main - [facility] [address] [place] [phone] 01/15/2025 13:19:27 01/15/2025 15:05:54 [facility] [id number] R73.9 13680 Health Concerns Section Related Observation LastModified by Organization Detai ls LastModified Time None Recorded Concern Status LastModified by Organization Details LastModified Time None Recorded Advance Directives Directive None Recorded Payers Insurance Date Sequence Insurance Name Policy Number Policy Magana Covered Member ID Magana Member ID Guarantor Name 01/15/2025 1 [facility] - DOS ON OR AFTER 2022 - DUAL ELIGIBLE - FPC OPTIONS AND ONE CARE (MEDICARE REPLACEMENT/AD VANTAGE - HMO) Kalyani Ling [id number] Kalyani Ling Notes Date Note Type Note Provider Name and Address Organization Details Recorded Time 01/15/2025 text/html ROS as noted in the HPI HPI: No roundhouse worker needed as this development writer speaks Greenlandic. Call returned to Kalyani Rogers to triage [...] Tuesday. Pt states unable to come into [facility] or return to Urology office [...] ...................... ...................... ...................... ...................... ...................... ...................... ......... Laboratory Veterinarian Note From Yadi Ness: Sent to a call for a pt complaining of high blood sugar and possible UTI. SC8 arrives on scene, pt is alert and oriented, airway is patent. Pt's primary language is Greenlandic. Pt's family serves as roundhouse worker. Pt has history of DM2 and frequent [...] sugar and contacted clinic today, who called [facility] for a visit. Pt denies hartman, cp, sob, cough, runny nose, vomiting, diarrhea, hematuria, fever, or loc. BP:118/62, P:73, RR:18, SpO2:97%RA, T:98.6, B; Head: unremarkable; Lung sounds: clear bilaterally; Abdomen: soft, non-tender, no distention; Back: unremarkable; Extremities: unremarkable; Urine sample obtained; urine dip results: uploaded to [facility]. [facility] – [...] ......... Disposition: Fulfilled Ginger Steele MD [address] [facility],[address], [place], [phone], [employer] 01/15/2025 14:53:12 OBGyn Episode No OBEpisode recorded.
--- OUTSIDE RECORDS SUMMARY | 2025-07-15 12:50 | XMS_ITS | Encounter Summary ---
Author Organization [employer] Address [address] [facility] 7t [place] [address] Care Team Providers Care Boiler Tube Blower Name Role Phone Audrey Calvo MD Primary Care Provider + Encounter Details Date Type Department Care Team ([facility] st Contact Info) Description 10/19/2023 Orders Only [facility] CHC MED & PEDS [address] [place] [address] Nila Gallardo LPN Social History Tobacco Use [...] Info) Description 07/16/2025 11:30 AM EDT Immunization [facility] MEDICINE [address] [place] [address] 07/30/2025 10:45 AM EST Office Visit [address] [address] Audrey Calvo MD [address] [place] [address] 09/10/2025 11:00 AM EST Office Visit [address] [address] 09/24/2025 2:00 PM EST Telemedicine [address] [address] Cristopher Lu, PharmD [address] [place] [address] 11/28/2025 1:00 PM EDT Office Visit [facility] ADULT DENTAL [address] [place] [address] Liya Perez documented as of this encounter Visit Diagnoses Not on filedocumented in this encounter Additional Health Concerns Assessment Noted Time PHQ-9 Depression Total Score: 0 12/23/19 23 9:08 AM EDT documented as of this encounter Care Teams Boiler Tube Blower Relationship Specialty Start Date End Date Audrey Calvo MD [address] [place] [address] PCP - General Family Medicine 05/09/17 documented as of this encounter
--- OUTSIDE RECORDS SUMMARY | 2025-07-15 12:50 | XMS_ITS | Encounter Summary ---
Author Organization [employer] Address [address] [facility] 7t [place] [address] Care Team Providers Care Slip Bridge Operator Name Role Phone Audrey Calvo MD Primary Care Provider + Encounter Details Date Type Department Care Team ([facility] Contact Info) Description 06/29/2023 Orders Only [facility] CHC MED & PEDS [address] [place] [address] Emi Gill LPN Social History Tobacco Use [...] Info) Description 07/16/2025 11:30 AM EDT Immunization [facility] MEDICINE [address] [place] [address] 07/30/2025 10:45 AM EST Office Visit [address] [address] Audrey Calvo MD [address] [place] [address] 09/10/2025 11:00 AM EST Office Visit [address] [address] 09/24/2025 2:00 PM EST Telemedicine [address] [address] Cristopher Lu, PharmD [address] [place] [address] 11/28/2025 1:00 PM EDT Office Visit [facility] ADULT DENTAL [address] [place] [address] Liya Perez documented as of this encounter Visit Diagnoses Not on filedocumented in this encounter Additional Health Concerns Assessment Noted Time PHQ-9 Depression Total Score: 0 12/23/19 23 9:08 AM EDT documented as of this encounter Care Teams Slip Bridge Operator Relationship Specialty Start Date End Date Audrey Calvo MD [address] [place] [address] PCP - General Family Medicine 05/09/17 documented as of this encounter
--- OUTSIDE RECORDS SUMMARY | 2025-07-15 12:50 | XMS_ITS | Encounter Summary ---
Author Organization [employer] Address [address] [place] [address] [facility] [place] [address] Care Team Providers Care Emergency Management Program Specialist Name Role Phone Audrey Calvo MD Primary Care Provider + Reason for Referral * Consultation (Routine) - Pending Review Specialty Diagnoses / Procedures Referred By Contac t Referred To Contact Pharmacy Diagnoses Primary hypertension Lisandra Juarez MD [address] [place] [address] Phone: tel: fax: Referral ID Status Reason Start Date Expiration Date Visits Requested Visits Authorized [id number] Pending Review Continuity of Care 02/21/2025 02/21/2026 6 6 Encounter Details Date Type Department Care Team (Late st Contact Info) Description 02/21/2025 Orders Only [facility] MEDICINE [address] [place], [place] [phone] Lisandra Juarez MD [address] [place], [place] [phone] Primary hypertension (Primary Dx) Social History Tobacco [...] Info) Description 07/16/2025 11:30 AM EDT Immunization [facility] MEDICINE [address] [place] [phone] 07/30/2025 10:45 AM EST Office Visit [facility] MED[facility]INE [address] [place] [address] Audrey Calvo MD [address] [place] [address] 09/10/2025 11:00 AM EST Office Visit [facility] MED[facility]INE [address] [place] [address] 09/24/2025 2:00 PM EST Telemedicine [facility] MED[facility]INE [address] [place] [address] Cristopher Lu PharmD [address] [place] [address] 11/28/2025 1:00 PM EDT Office Visit [facility] ADULT DENTAL [address] [place] [address] Liya Perez Scheduled Referrals Name Type Priority Associated Diagnoses Orde r Schedule Referral to Pharmacy MTM Outpatient Referral Routine Primary hypertension Ordered: 02/21/2025 documented as of this encounter Visit Diagnoses Diagnosis Primary hypertension- Primary Unspecified essential hypertension documented in this encounter Additional Health Concerns Assessment Noted Time PHQ-9 Depression Total Score: 0 12/27/19 25 1:57 PM EDT documented as of this encounter Care Teams Emergency Management Program Specialist Relationship Specialty Start Date End Date Audrey Calvo MD [address] [place] [address] PCP - General Family Medicine 05/09/17 documented as of this encounter
--- OUTSIDE RECORDS SUMMARY | 2025-07-15 12:50 | XMS_ITS | Clinical Summary ---
Author Organization [facility] Address [address] [place] [address] Phone Care Team Providers Care Tradeshow Worker Name Role Phone Unavailable Primary Care Provider [...] It is not the complete legal health record.[facility]
--- OUTSIDE RECORDS SUMMARY | 2025-07-15 12:50 | XMS_ITS | Encounter Summary ---
Author Organization [employer] Address [address] [place] [address] 7 [place] [address] Care Team Providers Care Oncology Account Specialist Name Role Phone Audrey Calvo MD Primary Care Provider + Reason for Visit * Reason Comments Transition Of Care (Tcm) HDF scheduled a nd SDOH screening completed on 12/26/24 Encounter Details Date Type Department Care Team ([facility] st Contact Info) Description 07/15/2025 Patient Outreach [facility] MEDICINE [address] [place] [address] Audrey Calvo MD [address] [place] [address] Transition Of Care (Tcm) (HDF scheduled and SDOH screening completed on 12/26/24 ) Social History Tobacco Use Types Packs/Day Years [...] as of this encounter Miscellaneous Notes * Significant Event - Radha Medrano - 07/15/2025 8:55 AM EDT 07/15/25 0851 Hospital Discharges and Admission for [facility] Type of Visit Hospital Admission Date of Admission/Visit 07/12/25 Date of Discharge 07/14/25 [facility] Diagnosis Stroke, uncontrolled type 2 diabetes Disposition Discharged Home Follow-Up Actions Follow-Up Needed Provider appointment Follow-Up Outcome Spoke to Patient;Booked Appointment Initial Contact Date 07/15/25 JAMAAL Wilkinson placed outbound call to patient for HDF outreach. Patient's name and were confirmed. Patient educated on the importance of follow up with provider following inpatient admission. Patient offered an HDF appt. Patient is agreeable to an appointment and has been scheduled for 07/30/25 at 10:45am with Dr. Calvo. Insurance verified prior to scheduling. Patient also notified that a health center pharmacist will be reaching out to them via telephone prior to their scheduled appointment in order to review their medications in preparation for their appointment. Patient advised to bring to appointment a photo id and insurance card. Patient provided with education on contacting the Health Center with any questions or concerns prior to the scheduled appointment. Patient educated on extended clinic hours on Mondays and Wednesdays, and Walk-In Urgent Care Located in [facility] of [facility]. Patient provided with after-hours line for [facility], , which offer night time triage service and option to transfer to edi consultant provider if needed. CC scanned discharge summary into patient's [facility] rt. Biggest concern for appointment at this time is patient is requesting a refill for oxycodone. Appropriate screenings completed in anticipation of appointment. documented in this encounter Plan of Treatment Upcoming Encounters Date Type Department Care Team (Late st Contact Info) Description 07/16/2025 11:30 AM EDT Immunization [facility] MEDICINE [address] [place] [address] 07/30/2025 10:45 AM EST Office Visit [facility] MEDICINE [address] [place] [address] Audrey Calvo MD [address] [place] [address] 09/10/2025 11:00 AM EST Office Visit [facility] MEDICINE [address] [place] [address] 09/24/2025 2:00 PM EST Telemedicine [facility] MEDICINE [address] [place] [address] Cristopher Lu, PharmD [address] [place] [address] 11/28/2025 1:00 PM EDT Office Visit [facility] ADULT DENTAL [address] [place] [address] Liya Perez documented as of this encounter Visit Diagnoses Not on filedocumented in this encounter Additional Health Concerns Assessment Noted Time PHQ-9 Depression Total Score: 0 12/27/19 25 1:57 PM EDT documented as of this encounter Care Teams Oncology Account Specialist Relationship Specialty Start Date End Date Audrey Calvo MD [address] [place] [address] PCP - General Family Medicine 05/09/17 documented as of this encounter
--- OUTSIDE RECORDS SUMMARY | 2025-07-15 12:50 | XMS_ITS | Encounter Summary ---
Author Organization [employer] Address [address] [place] [address] [address] [place] [address] Care Team Providers Care Manager Fitness Name Role Phone Audrey Calvo MD Primary Care Provider + Reason for Visit * Reason Onset Date Comments Med Refill 07/15/2025 Encounter Details Date Type Department Care Team (Late st Contact Info) Description 07/15/2025 Refill [facility] [address] [place] [phone] Mey Vargas, ZBIGNIEW Achilles tendinitis of right lower extremity Social [...] Info) Description 07/16/2025 11:30 AM EDT Immunization [facility] [address] [place] [phone] 07/30/2025 10:45 AM EST Office Visit [facility] [address] [place] [phone] Audrey Calvo MD [address] [place] [phone] 09/10/2025 11:00 AM EST Office Visit [facility] [address] [place] [phone] 09/24/2025 2:00 PM EST Telemedicine [facility] [address] [place] [phone] Cristopher Lu, MayankD [address] [place] [phone] 11/28/2025 1:00 PM EDT Office Visit [facility] [address] [place] [phone] Liya Perez documented as of this encounter Visit Diagnoses Diagnosis Achilles tendinitis of right lower extremity documented in this encounter Additional Health Concerns Assessment Noted Time PHQ-9 Depression Total Score: 0 12/27/19 25 1:57 PM EDT documented as of this encounter Care Teams Manager Fitness Relationship Specialty Start Date End Date Audrey Calvo MD [address] [place] [phone] PCP - General Family Medicine 05/09/17 documented as of this encounter
--- OUTSIDE RECORDS SUMMARY | 2025-07-15 12:50 | XMS_ITS | Encounter Summary ---
Author Organization [employer] Address [address] [place] [address] [address] [place] [address] Care Team Providers Care It Technician Name Role Phone Audrey Calvo MD Primary Care Provider + Encounter Details Date Type Department Care Team ([facility] Contact Info) Description 07/12/2025 Orders Only GENERIC EXTERNAL DATA DEPARTMENT Provider, Generic External Data Social History Tobacco Use Types Packs/Day Years [...] Info) Description 07/16/2025 11:30 AM EDT Immunization [facility] [address] [place] [phone] 07/30/2025 10:45 AM EST Office Visit [address] [address] uAdrey Calvo MD [address] [place] [phone] 09/10/2025 11:00 AM EST Office Visit [address] [address] 09/24/2025 2:00 PM EST Telemedicine [address] [address] Cristopher Lu, PharmD [address] [place] [phone] 11/28/2025 1:00 PM EDT Office Visit [facility] [address] [place] [phone] Liya Perez documented as of this encounter Procedures Procedure Name Priority Date/Time Associated Diagnosis Comments MR BRAIN WO CONTRAST Routine 07/13/2025 1:35 PM EDT PROTHROMBIN TIME WHOLE BLD POC Routine 07/12/2025 11:54 AM EDT ~PT, ~INR - ANTI COAG CLINIC Routine 07/12/2025 11:54 AM EDT GLUCOSE, WHOLE BLOOD Routine 07/12/2025 11:50 AM EDT HIGH SENSITIVITY TROPONIN I Routine 07/12/2025 11:42 AM EDT CBC WITH AUTO DIFFERENTIAL Routine 07/12/2025 11:42 AM EDT APTT Routine 07/12/2025 11:42 AM EDT PROTHROMBIN TIME-INR Routine 07/12/2025 11:42 AM EDT LIPID PANEL, STANDARD Routine 07/12/2025 11:42 AM EDT BASIC METABOLIC PANEL Routine 07/12/2025 11:42 AM EDT CTA HEAD STROKE W AND WO CONTRAST Routine 07/12/2025 11:[address] HEAD STROKE WO CONTRAST Routine 07/12/2025 11:37 AM EDT documented in this encounter Results * MR Brain w/o Contrast (07/13/2025 1:35 PM EDT) Anatomical Region Laterality Modality Brain Magnetic Resonan ce 07/13/2025 1:35 PM EDT Narrative 07/13/2025 1:36 PM EDT [address] [address] Magnetic Resonance Report Signed Patient: Kalyani Ford I MR# : [id number] : 1955 Acct:[id number] Age/Sex: 70 / F ADM Date: 07/12/25 Loc: HO.ICU 261-[address]: Ramírez Ngo MD Ordering Physician: Ramírez Ngo MD Date of Service: 07/13/25 Procedure(s): MR head/brain wo con Accession Number(s): [id number] cc: Ramírez Ngo MD; Audrey Calvo MD Reason for Exam: stroke TNK CLINICAL HISTORY: stroke TNK Exam: Nonenhanced MRI brain. Comparison: CT brain 07/12/2025. Findings: There is no cerebral edema or mass effect. White matter reveals a few punctate foci of T2 hyperintensity common nonspecific although likely sequela of very minimal chronic microangiopathic disease.. Diffusion weighted imaging reveals no restricted diffusion or MR evidence of acute ischemia. Susceptibility weighted imaging reveals no susceptibility artifact or evidence of intracranial hemorrhage. No sellar or parasellar lesions. Ventricular size and configuration are within normal limits. Cerebral cisterns are preserved. There are few opacified mastoid air cells on the right. No other significant signal abnormality seen within the paranasal sinuses or mastoid air cells. Preserved flow signal voids are present within visualized intracranial vasculature. Impression: 1. No acute intracranial abnormalities. This document has been electronically signed by: Chad Fuller MD on 07/13/2025 13:35:12 Dictated By: Chad Fuller MD Signed By: <Electronically signed by Chad Fuller MD in OV> 07/13/25 1336 DD/ 1335 TD/TT: 07/13/251334 [employer] Supervisor: Procedure Note Donotuseinterpreter, Image - 07/13/2025 [place] [address] Magnetic Resonance Report Signed Patient: Kalyani Ford IMR# : [id number] : 1955cct:[id number] Age/Sex: 70 / FADM Date: 07/12/25 Loc: .ICU 261-[address]: Ramírez Ngo MD Ordering Physician: Ramírez Ngo MD Date of Service: 07/13/25 Procedure(s): MR head/brain wo con Accession Number(s): [id number] cc: Ramírez Ngo MD; Audrey Calvo MD Reason for Exam: stroke TNK CLINICAL HISTORY: stroke TNK Exam: Nonenhanced MRI brain. Comparison: CT brain 07/12/2025. Findings: There is no cerebral edema or mass effect. White matter reveals a few punctate foci of T2 hyperintensity common nonspecific although likely sequela of very minimal chronic microangiopathic disease.. Diffusion weighted imaging reveals no restricted diffusion or MR evidence of acute ischemia. Susceptibility weighted imaging reveals no susceptibility artifact or evidence of intracranial hemorrhage. No sellar or parasellar lesions. Ventricular size and configuration are within normal limits. Cerebral cisterns are preserved. There are few opacified mastoid air cells on the right. No other significant signal abnormality seen within the paranasal sinuses or mastoid air cells. Preserved flow signal voids are present within visualized intracranial vasculature. Impression: 1. No acute intracranial abnormalities. This document has been electronically signed by: Chad Fuller MD on 07/13/2025 13:35:12 Dictated By: Chad Fuller MD Signed By: <Electronically signed by Chad Fuller MD in OV> 07/13/25 1336 DD/ 1335 TD/TT: 07/13/25 1335 [employer] Supervisor: [facility] External Provider IMG MRI PROCEDURES Edited Result - Final * PROTHROMBIN TIME WHOLE BLD POC (07/12/2025 11:54 AM EDT) Pathologist [facility] Protime 11.7 11.1 - 13.5 sec [facility] 07/12/2025 11:5 4 AM EDT 07/12/2025 12:00 PM EDT Generic External Data Provider LAB BLOOD ORDERAB LES Final Result [facility] [address] [place] [phone] * ~PT, ~INR - ANTI COAG CLINIC (07/12/2025 11:54 AM EDT) Prothrombin Time INR 1.0 0.9 - 1.1 [facility] Comment:METER #: [id number] TERNATIONAL NORMALIZED RATIO (INR) REFERENCE RANGES Reference RangeFor patients not on anticoagulant therapy: 0.9 - 1.1INR ranges for oral anticoagulanttherapy:For prevention and treatment of venous thrombosis and pulmonary embolism: 2.0 - 3.0For acute myocardial infarction with aspirin therapy: 2.0 - 3.0For acute myocardial infarction without aspirin therapy: 3.0 - 4.0For patients with mechanical prosthetic heart valves: 2.5 - 3.5 07/12/2025 11:5 4 AM EDT 07/12/2025 12:00 PM EDT Generic External Data Provider LAB BLOOD ORDERAB LES Final Result Performing Organization Address [facility] Co de Phone Number [facility] [address] [place] [phone] * (ABNORMAL) Glucose, Whole Blood (07/12/2025 11:50 AM EDT) Glucose, Whole Blood 207(H) 60 - 115 mg/dL [facility] Comment:METER #: [id number] 07/12/2025 11:5 0 AM EDT 07/12/2025 12:01 PM EDT Generic External Data Provider LAB BLOOD ORDERAB LES Final Result Performing Organization Address [facility] Co de Phone Number [facility] [address] [place] [phone] * (ABNORMAL) Lipid Panel, Standard (07/12/2025 11:42 AM EDT) Triglycerides 138 <150 mg/dL [facility] Comment:Desirable Triglyceri de: less than 150 mg/dLBorderline High Triglyceride 150-199 mg/dLHigh Triglyceride: 200-499 mg/dLVery High Triglyceride: greater than or equal to 5OO mg/dL Cholesterol 213(H) <200 mg/dL [facility] Comment:Desirable Cholestero l: less than 200 mg/dLBorderline High Cholesterol: 200-239 mg/dLHigh Cholesterol: greater than 239 mg/dL LDL Cholesterol Calculated 132(H) <100 mg/dL [facility] Comment:Desirable LDL: less than 100 mg/dLNear Optimal/Above Optimal LDL: 110- 129 mg/dLBorderline High LDL: 130-159 mg/dLHigh LDL: 160-189 mg/dLVery High LDL: greater than or equal to 190 mg/dL HDL Cholesterol 54 >40 mg/dL [facility] Comment:Desirable HDL: great er than 40 mg/dL Note: This HDL assay may give artificially low results in patients with liver disease. 07/12/2025 11:4 2 AM EDT 07/12/2025 11:44 AM EDT us Generic External Data Provider LAB BLOOD ORDERAB LES Final Result [facility] [address] [place] [phone] * (ABNORMAL) Basic Metabolic Panel (07/12/2025 11:42 AM EDT) Sodium 138 135 - 145 mmol/L [facility] Potassium 4.3 3.3 - 5.1 mmol/L [facility] Comment:Mild Hemolysis.Inter pret result with caution Chloride 103 96 - 108 mmol/L [facility] Carbon Dioxide 27 22 - 29 mmol/L [facility] Anion Gap 12 12 - 20 [facility] Urea Nitrogen (BUN) 14 9 - 16 mg/dL [facility] Creatinine, Serum 0.81 0.5 - 1.4 mg/dL [facility] Creatinine Clr Calc Pharmacy 72.7 [facility] Comment:Provided height and weight: 167.64 cm,84.368 kg.eGFR (calculated from the MDRD study equation) and eCrCl(calculated from the Cockcroft-Gault equation) are based ondifferent parameters and may not yield comparable results.If eCrCl result is absurd, please check patient'sheight/weight. Estimated Glomerular Filt Rate >60 [facility] Comment:Chronic Kidney Disea se: Estimated GFR < 60 mL/min/1.39m5Knejyb Kidney Disease: Estimated GFR < 15 mL/min/1.73m2 Glucose 224(H) 60 - 115 mg/dL [facility] Calcium 9.3 8.4 - 10.2 mg/dL [facility] 07/12/2025 11:4 2 AM EDT 07/12/2025 11:44 AM EDT Generic External Data Provider LAB BLOOD ORDERAB LES Final Result Performing Organization Address [facility] de Phone Number [facility] [address] [place] [phone] * High Sensitivity Troponin I (07/12/2025 11:42 AM EDT) Pathologist [facility] TROPONIN I HIGH SENSITIVITY <2.7 <3.5 - 17.0 ng/L [facility] Comment:The Goss high sens itivity Troponin-I results should beused in conjunction with other diagnostic information suchas ECG, clinical observations and information, and patientsymptoms to aid in the diagnosis of IN. 07/12/2025 11:4 2 AM EDT 07/12/2025 11:44 AM EDT Generic External Data Provider LAB BLOOD ORDERAB LES Final Result Performing Organization Address [facility] Phone Number [facility] [address] [place] [phone] * (ABNORMAL) Partial Thromboplastin Time, Activated (APTT) (07/12/2025 11:42 AM EDT) Partial Thromboplastin Time 25.3(L) 26.7 - 34.1 SEC [facility] 07/12/2025 11:4 2 AM EDT 07/12/2025 11:44 AM EDT Generic External Data Provider LAB BLOOD ORDERAB LES Final Result Performing Organization Address [facility] Phone Number [facility] [address] [place] [phone] * (ABNORMAL) Prothrombin Time-INR (07/12/2025 11:42 AM EDT) [facility] Prothrombin Time 10.3(L) 10.9 - 12.4 SEC [facility] INTERNATIONAL NORM RATIO 0.9 0.9 - 1.1 [facility] Comment:INTERNATIONAL NORMAL IZED RATIO (INR) REFERENCE RANGES Reference RangeFor patients not on anticoagulant therapy: 0.9 - 1.1INR ranges for oral anticoagulanttherapy:For prevention and treatment of venous thrombosis and pulmonary embolism: 2.0 - 3.0For acute myocardial infarction with aspirin therapy: 2.0 - 3.0For acute myocardial infarction without aspirin therapy: 3.0 - 4.0For patients with mechanical prosthetic heart valves: 2.5 - 3.5 07/12/2025 11:4 2 AM EDT 07/12/2025 11:44 AM EDT Generic External Data Provider LAB BLOOD ORDERAB LES Final Result [facility] [address] [place] [phone] * (ABNORMAL) CBC auto differential (07/12/2025 11:42 AM EDT) [facility] White Blood Count 5.0 4.8 - 10.8 X10*3/uL [facility] Red Blood Count 5.23 4.20 - 5.50 X10*6/uL [facility] Hemoglobin 14.1 12.0 - 16.0 g/dl [facility] Hematocrit 42.9 37.0 - 47.0 % [facility] Mean Corpuscular Volume 82.0 80.0 - 98.0 fL [facility] Mean Corpuscular Hemoglobin 27.0 27.0 - 33.0 pg [facility] Mean Corpuscular HGB Conc 32.9 31.0 - 35.0 g/dl [facility] Red Cell Distribution Width 13.0 11.0 - 16.0 % [facility] Platelet Count 262 160 - 400 X10*3/uL [facility] Mean Platelet Volume 10.3 9.4 - 12.3 fL [facility] Neutrophils Percent Auto 45.0 45 - 73 % [facility] Imm Gran Pct Auto 0.2 0.0 - 0.4 % [facility] Lymphocytes Percent Auto 43.5(H) 20 - 40 % [facility] Monocytes Percent Auto 7.3 2 - 11 % [facility] Eosinophils Percent Auto 3.0 0 - 4 % [facility] Basophils Percent Auto 1.0 0 - 2 % [facility] NRBC Pct Auto 0.0 0.0 - 0.2 /100WBC [facility] Neutrophils Absolute Auto 2.2 2.0 - 8.3 x10*3/uL [facility] Imm Gran Abs Auto 0.01 0.00 - 0.03 X10*3/uL [facility] Lymphocytes Absolute Auto 2.2 1.2 - 4.9 X10*3/uL [facility] Monocytes Absolute Auto 0.4 0.1 - 1.2 X10*3/uL [facility] Eosinophils Absolute Auto 0.2 0.0 - 0.4 X10*3/uL [facility] Basophils Absolute Auto 0.1 0.0 - 0.2 X10*3/uL [facility] NRBC Abs Auto 0.000 0.0 - 0.012 X10*3/uL [facility] 07/12/2025 11:4 2 AM EDT 07/12/2025 11:44 AM EDT us Generic External Data Provider LAB BLOOD ORDERAB LES Final Result [facility] [address] [place] [phone] * CTA Head Stroke w/ and w/o Contrast (07/12/2025 11:40 AM EDT) Anatomical Region Laterality Modality Computed Tomogra phy 07/12/2025 11:4 0 AM EDT Narrative 07/12/2025 12:02 PM EDT [place] [address] CT Scan Report Signed Patient: Kalyani Ford I MR# : [id number] : 1955 Acct:[id number] Age/Sex: 70 / F ADM Date: 07/12/25 Loc: HO.ED Attending Dr: Ordering Physician: Prateek De Leon MD Date of Service: 07/12/25 Procedure(s): CT angio head neck STROKE Accession Number(s): [id number] cc: Audrey Calvo MD; Prateek De Leon MD Report Number: [id number]: Total DLP = 662.00 mGy-cm Reason for Exam: Right-sided numbness, difficulty with word finding EXAMINATION: CT HEAD WITHOUT CONTRAST (STROKE PROTOCOL) CLINICAL INFORMATION: Right-sided numbness. Difficulty with word finding concerning stroke. COMPARISON: CT brain dated June 11, 2008 is not available on PACS system. TECHNIQUE: Contiguous axial imaging was performed from the skull base to vertex without intravenous administration of contrast. This CT examination was performed using dose optimization techniques as appropriate, variously including the following: *Automated exposure control *Adjustment of mA and/or kV according to patient size (this includes techniques or standardized protocols for targeted exams where dose is matched to indication/reason for exam; i.e. extremities or head) *Use of iterative reconstruction technique. 658 mGy centimeter. FINDINGS: No acute intracranial hemorrhage, mass effect, midline shift, hydrocephalus or herniation. Story-white matter differentiation is normal. No dense MCA. Posterior cranial fossa contents demonstrated no acute hemorrhage or gross mass effect. Calcified plaques in the V4 segments of the vertebral arteries and cavernous supracavernous segments both ICAs. No air-fluid levels in the paranasal sinuses. Mild mucosal thickening, maxillary sinuses. Tympanic cavities and mastoid cells are aerated. Mild prominent lacrimal glands. CT/CT angio head neck STROKE IMPRESSION: No acute intracranial hemorrhage or acute brain abnormality by CT. EXAMINATION: CTA NECK WITH CONTRAST (STROKE) CTA BRAIN WITH CONTRAST (STROKE) CLINICAL INFORMATION: Right-sided numbness. Difficulty with word finding. Concerning stroke. COMPARISON: None available. TECHNIQUE: CTA of the head and neck was performed in the axial plane from the mediastinum to the skull vertex using 70 mL Omnipaque 350 intravenous contrast. Additional reformatted multiplanar images including maximum intensity projection MIP images are generated on the CT workstation. This CT examination was performed using dose optimization techniques as appropriate, variously including the following: *Automated exposure control *Adjustment of mA and/or kV according to patient size (this includes techniques or standardized protocols for targeted exams where dose is matched to indication/reason for exam; i.e. extremities or head) *Use of iterative reconstruction technique. DLP: 662 mGy centimeter. FINDINGS: The degree of stenosis determined by criteria similar to NASCET. Chest CTA: Incomplete visualization of the aortic arch demonstrated calcified plaques in the wall without focal stenosis or intimal flap. Normal diameter.. Neck CTA: Right CCA: Normal patency. No focal stenosis. No intimal flap. Right ICA: Normal patency. No focal stenosis. No intimal flap. Left CCA: Normal patency. No focal stenosis. No intimal flap. Left ICA: Normal patency. No focal stenosis. No intimal flap. V1/V2 segments: Normal patency. No focal stenosis. No intimal flap. Left vertebral artery is dominant. Both origin from the subclavian arteries. Brain CTA: Anterior cerebral circulation: ICAs: Normal patency. No focal stenosis. No abrupt cut off. ICA terminus demonstrated no vascular irregularity. Calcified plaques in the cavernous supracavernous segments. MCA's: Normal patency. No focal stenosis. No abrupt cut off. Bifurcation/trifurcation demonstrated no gross abnormality. ACAs: Normal patency. No focal stenosis. No abrupt cut off. Ophthalmic arteries are patent without gross abnormality. Anterior communicating artery is patent without gross abnormality. I do not see the posterior communicating arteries. Posterior cerebral circulation: V3/V4 segments: Calcified plaques. Normal patency. No focal stenosis. No intimal flap. Left vertebral artery is dominant. Posterior inferior cerebral arteries are patent without gross abnormality. Basilar artery is patent without focal stenosis or intimal flap. Superior cerebellar arteries are patent. No gross abnormality. abrasive band winder: Normal patency. No focal stenosis. No abrupt cut off. Ancillary findings: No main cerebral venous sinuses thrombosis. The thyroid gland is not enlarged. Bilateral pulmonary mosaic pattern. Multilevel cervical spondylosis pronounced at C6-7 and to a lesser extent from C2-3 to C5-6. IMPRESSION: No main cerebral artery occlusion or embolus or gross aneurysm. No dissection or high-grade degree stenosis, vessels of the neck. This critical result was discussed with emergency physician Dr. Prateek De Leon at 11:49 AM hours on July 12, 2025. It was ascertained that the content and urgency of the report was understood at the time of direct communication. Electronically signed by: Maxi Aparicio MD 07/12/2025 11:59 AM EDT RP Dictated By: Maxi Larios MD Signed By: <Electronically signed by Maxi Chester MD in OV> 07/12/25 1159 DD/ 1140 TD/TT: 07/12/25 1154 [employer] Supervisor: Procedure Note Donotuseinterpreter, Image - 07/12/[address] [place] [address] [address] Scan Report Signed Patient: Kalyani Ford [facility]# : [id number] : 1955cct:[id number] Age/Sex: 70 / FADM Date: 07/12/25 Loc: HO.ED Attending Dr: Ordering Physician: Prateek De Leon MD Date of Service: 07/12/25 Procedure(s): CT angio head neck STROKE Accession Number(s): [id number] cc: Audrey Calvo MD; Prateek De Leon MD Report Number: [id number]: Total DLP = 662.00 mGy-cm Reason for Exam: Right-sided numbness, difficulty with word finding EXAMINATION: CT HEAD WITHOUT CONTRAST (STROKE PROTOCOL) CLINICAL INFORMATION: Right-sided numbness. Difficulty with word finding concerning stroke. COMPARISON: CT brain dated June 11, 2008 is not available on PACS system. TECHNIQUE: Contiguous axial imaging was performed from the skull base to vertex without intravenous administration of contrast. This CT examination was performed using dose optimization techniques as appropriate, variously including the following: *Automated exposure control *Adjustment of mA and/or kV according to patient size (this includes techniques or standardized protocols for targeted exams where dose is matched to indication/reason for exam; i.e. extremities or head) *Use of iterative reconstruction technique. 658 mGy centimeter. FINDINGS: No acute intracranial hemorrhage, mass effect, midline shift, hydrocephalus or herniation. Story-white matter differentiation is normal. No dense MCA. Posterior cranial fossa contents demonstrated no acute hemorrhage or gross mass effect. Calcified plaques in the V4 segments of the vertebral arteries and cavernous supracavernous segments both ICAs. No air-fluid levels in the paranasal sinuses. Mild mucosal thickening, maxillary sinuses. Tympanic cavities and mastoid cells are aerated. Mild prominent lacrimal glands. CT/CT angio head neck STROKE IMPRESSION: No acute intracranial hemorrhage or acute brain abnormality by CT. EXAMINATION: CTA NECK WITH CONTRAST (STROKE) CTA BRAIN WITH CONTRAST (STROKE) CLINICAL INFORMATION: Right-sided numbness. Difficulty with word finding. Concerning stroke. COMPARISON: None available. TECHNIQUE: CTA of the head and neck was performed in the axial plane from the mediastinum to the skull vertex using 70 mL Omnipaque 350 intravenous contrast. Additional reformatted multiplanar images including maximum intensity projection MIP images are generated on the CT workstation. This CT examination was performed using dose optimization techniques as appropriate, variously including the following: *Automated exposure control *Adjustment of mA and/or kV according to patient size (this includes techniques or standardized protocols for targeted exams where dose is matched to indication/reason for exam; i.e. extremities or head) *Use of iterative reconstruction technique. DLP: 662 mGy centimeter. FINDINGS: The degree of stenosis determined by criteria similar to NASCET. Chest CTA: Incomplete visualization of the aortic arch demonstrated calcified plaques in the wall without focal stenosis or intimal flap. Normal diameter.. Neck CTA: Right CCA: Normal patency. No focal stenosis. No intimal flap. Right ICA: Normal patency. No focal stenosis. No intimal flap. Left CCA: Normal patency. No focal stenosis. No intimal flap. Left ICA: Normal patency. No focal stenosis. No intimal flap. V1/V2 segments: Normal patency. No focal stenosis. No intimal flap. Left vertebral artery is dominant. Both origin from the subclavian arteries. Brain CTA: Anterior cerebral circulation: ICAs: Normal patency. No focal stenosis. No abrupt cut off. ICA terminus demonstrated no vascular irregularity. Calcified plaques in the cavernous supracavernous segments. MCA's: Normal patency. No focal stenosis. No abrupt cut off. Bifurcation/trifurcation demonstrated no gross abnormality. ACAs: Normal patency. No focal stenosis. No abrupt cut off. Ophthalmic arteries are patent without gross abnormality. Anterior communicating artery is patent without gross abnormality. I do not see the posterior communicating arteries. Posterior cerebral circulation: V3/V4 segments: Calcified plaques. Normal patency. No focal stenosis. No intimal flap. Left vertebral artery is dominant. Posterior inferior cerebral arteries are patent without gross abnormality. Basilar artery is patent without focal stenosis or intimal flap. Superior cerebellar arteries are patent. No gross abnormality. abrasive band winder: Normal patency. No focal stenosis. No abrupt cut off. Ancillary findings: No main cerebral venous sinuses thrombosis. The thyroid gland is not enlarged. Bilateral pulmonary mosaic pattern. Multilevel cervical spondylosis pronounced at C6-7 and to a lesser extent from C2-3 to C5-6. IMPRESSION: No main cerebral artery occlusion or embolus or gross aneurysm. No dissection or high-grade degree stenosis, vessels of the neck. This critical result was discussed with emergency physician Dr. Prateek De Leon at 11:49 AM hours on July 12, 2025. It was ascertained that the content and urgency of the report was understood at the time of direct communication. Electronically signed by: Maxi Aparicio MD 07/12/2025 11:59 AM EDT Dictated By: Maxi Larios MD Signed By: <Electronically signed by Maxi Chester MDin OV> 07/12/25 1159 DD/ 1140 TD/TT: 07/12/25 1154 [employer] Supervisor: [facility] External Provider IMG CT PROCEDURES Final Result * CT Head Stroke w/o Contrast (07/12/2025 11:37 AM EDT) Anatomical Region Laterality Modality Computed Tomogra phy 07/12/2025 11:3 7 AM EDT Narrative 07/12/2025 12:02 PM EDT [address] [address] [address] Scan Report Signed Patient: Kalyani Ford I MR# : [id number] : 1955 Acct:[id number] Age/Sex: 70 / F ADM Date: 07/12/25 Loc: HO.ED Attending Dr: Ordering Physician: Prateek De Leon MD Date of Service: 07/12/25 Procedure(s): CT head for STROKE Accession Number(s): [id number] cc: Audrey Calvo MD; Prateek De Leon MD Report Number: [id number]: Total DLP = 658.00 mGy-cm Reason for Exam: Right-sided numbness, difficulty with word finding EXAMINATION: CT HEAD WITHOUT CONTRAST (STROKE PROTOCOL) CLINICAL INFORMATION: Right-sided numbness. Difficulty with word finding concerning stroke. COMPARISON: CT brain dated June 11, 2008 is not available on PACS system. TECHNIQUE: Contiguous axial imaging was performed from the skull base to vertex without intravenous administration of contrast. This CT examination was performed using dose optimization techniques as appropriate, variously including the following: *Automated exposure control *Adjustment of mA and/or kV according to patient size (this includes techniques or standardized protocols for targeted exams where dose is matched to indication/reason for exam; i.e. extremities or head) *Use of iterative reconstruction technique. 658 mGy centimeter. FINDINGS: No acute intracranial hemorrhage, mass effect, midline shift, hydrocephalus or herniation. Story-white matter differentiation is normal. No dense MCA. Posterior cranial fossa contents demonstrated no acute hemorrhage or gross mass effect. Calcified plaques in the V4 segments of the vertebral arteries and cavernous supracavernous segments both ICAs. No air-fluid levels in the paranasal sinuses. Mild mucosal thickening, maxillary sinuses. Tympanic cavities and mastoid cells are aerated. Mild prominent lacrimal glands. CT/CT head for STROKE IMPRESSION: No acute intracranial hemorrhage or acute brain abnormality by CT. EXAMINATION: CTA NECK WITH CONTRAST (STROKE) CTA BRAIN WITH CONTRAST (STROKE) CLINICAL INFORMATION: Right-sided numbness. Difficulty with word finding. Concerning stroke. COMPARISON: None available. TECHNIQUE: CTA of the head and neck was performed in the axial plane from the mediastinum to the skull vertex using 70 mL Omnipaque 350 intravenous contrast. Additional reformatted multiplanar images including maximum intensity projection MIP images are generated on the CT workstation. This CT examination was performed using dose optimization techniques as appropriate, variously including the following: *Automated exposure control *Adjustment of mA and/or kV according to patient size (this includes techniques or standardized protocols for targeted exams where dose is matched to indication/reason for exam; i.e. extremities or head) *Use of iterative reconstruction technique. DLP: 662 mGy centimeter. FINDINGS: The degree of stenosis determined by criteria similar to NASCET. Chest CTA: Incomplete visualization of the aortic arch demonstrated calcified plaques in the wall without focal stenosis or intimal flap. Normal diameter.. Neck CTA: Right CCA: Normal patency. No focal stenosis. No intimal flap. Right ICA: Normal patency. No focal stenosis. No intimal flap. Left CCA: Normal patency. No focal stenosis. No intimal flap. Left ICA: Normal patency. No focal stenosis. No intimal flap. V1/V2 segments: Normal patency. No focal stenosis. No intimal flap. Left vertebral artery is dominant. Both origin from the subclavian arteries. Brain CTA: Anterior cerebral circulation: ICAs: Normal patency. No focal stenosis. No abrupt cut off. ICA terminus demonstrated no vascular irregularity. Calcified plaques in the cavernous supracavernous segments. MCA's: Normal patency. No focal stenosis. No abrupt cut off. Bifurcation/trifurcation demonstrated no gross abnormality. ACAs: Normal patency. No focal stenosis. No abrupt cut off. Ophthalmic arteries are patent without gross abnormality. Anterior communicating artery is patent without gross abnormality. I do not see the posterior communicating arteries. Posterior cerebral circulation: V3/V4 segments: Calcified plaques. Normal patency. No focal stenosis. No intimal flap. Left vertebral artery is dominant. Posterior inferior cerebral arteries are patent without gross abnormality. Basilar artery is patent without focal stenosis or intimal flap. Superior cerebellar arteries are patent. No gross abnormality. abrasive band winder: Normal patency. No focal stenosis. No abrupt cut off. Ancillary findings: No main cerebral venous sinuses thrombosis. The thyroid gland is not enlarged. Bilateral pulmonary mosaic pattern. Multilevel cervical spondylosis pronounced at C6-7 and to a lesser extent from C2-3 to C5-6. IMPRESSION: No main cerebral artery occlusion or embolus or gross aneurysm. No dissection or high-grade degree stenosis, vessels of the neck. This critical result was discussed with emergency physician Dr. Prateek De Leon at 11:49 AM hours on July 12, 2025. It was ascertained that the content and urgency of the report was understood at the time of direct communication. Electronically signed by: Maxi Aparicio MD 07/12/2025 11:59 AM EDT RP Dictated By: Maxi Larios MD Signed By: <Electronically signed by Maxi Chester MD in OV> 07/12/25 1159 DD/ 1137 TD/TT: 07/12/25 1142 [employer] Supervisor: Procedure Note Donotuseinterpreter, Image - 07/12/[address] [address] [address] Scan Report Signed Patient: Kalyani Ford IMR# : [id number] : [id number]:[id number] Age/Sex: 70 / FADM Date: 07/12/25 Loc: HO.ED Attending Dr: Ordering Physician: Prateek De Leon MD Date of Service: 07/12/25 Procedure(s): CT head for STROKE Accession Number(s): [id number] cc: Audrey Calvo MD; Prateek De Leon MD Report Number: [id number]: Total DLP = 658.00 mGy-cm Reason for Exam: Right-sided numbness, difficulty with word finding EXAMINATION: CT HEAD WITHOUT CONTRAST (STROKE PROTOCOL) CLINICAL INFORMATION: Right-sided numbness. Difficulty with word finding concerning stroke. COMPARISON: CT brain dated June 11, 2008 is not available on PACS system. TECHNIQUE: Contiguous axial imaging was performed from the skull base to vertex without intravenous administration of contrast. This CT examination was performed using dose optimization techniques as appropriate, variously including the following: *Automated exposure control *Adjustment of mA and/or kV according to patient size (this includes techniques or standardized protocols for targeted exams where dose is matched to indication/reason for exam; i.e. extremities or head) *Use of iterative reconstruction technique. 658 mGy centimeter. FINDINGS: No acute intracranial hemorrhage, mass effect, midline shift, hydrocephalus or herniation. Story-white matter differentiation is normal. No dense MCA. Posterior cranial fossa contents demonstrated no acute hemorrhage or gross mass effect. Calcified plaques in the V4 segments of the vertebral arteries and cavernous supracavernous segments both ICAs. No air-fluid levels in the paranasal sinuses. Mild mucosal thickening, maxillary sinuses. Tympanic cavities and mastoid cells are aerated. Mild prominent lacrimal glands. CT/CT head for STROKE IMPRESSION: No acute intracranial hemorrhage or acute brain abnormality by CT. EXAMINATION: CTA NECK WITH CONTRAST (STROKE) CTA BRAIN WITH CONTRAST (STROKE) CLINICAL INFORMATION: Right-sided numbness. Difficulty with word finding. Concerning stroke. COMPARISON: None available. TECHNIQUE: CTA of the head and neck was performed in the axial plane from the mediastinum to the skull vertex using 70 mL Omnipaque 350 intravenous contrast. Additional reformatted multiplanar images including maximum intensity projection MIP images are generated on the CT workstation. This CT examination was performed using dose optimization techniques as appropriate, variously including the following: *Automated exposure control *Adjustment of mA and/or kV according to patient size (this includes techniques or standardized protocols for targeted exams where dose is matched to indication/reason for exam; i.e. extremities or head) *Use of iterative reconstruction technique. DLP: 662 mGy centimeter. FINDINGS: The degree of stenosis determined by criteria similar to NASCET. Chest CTA: Incomplete visualization of the aortic arch demonstrated calcified plaques in the wall without focal stenosis or intimal flap. Normal diameter.. Neck CTA: Right CCA: Normal patency. No focal stenosis. No intimal flap. Right ICA: Normal patency. No focal stenosis. No intimal flap. Left CCA: Normal patency. No focal stenosis. No intimal flap. Left ICA: Normal patency. No focal stenosis. No intimal flap. V1/V2 segments: Normal patency. No focal stenosis. No intimal flap. Left vertebral artery is dominant. Both origin from the subclavian arteries. Brain CTA: Anterior cerebral circulation: ICAs: Normal patency. No focal stenosis. No abrupt cut off. ICA terminus demonstrated no vascular irregularity. Calcified plaques in the cavernous supracavernous segments. MCA's: Normal patency. No focal stenosis. No abrupt cut off. Bifurcation/trifurcation demonstrated no gross abnormality. ACAs: Normal patency. No focal stenosis. No abrupt cut off. Ophthalmic arteries are patent without gross abnormality. Anterior communicating artery is patent without gross abnormality. I do not see the posterior communicating arteries. Posterior cerebral circulation: V3/V4 segments: Calcified plaques. Normal patency. No focal stenosis. No intimal flap. Left vertebral artery is dominant. Posterior inferior cerebral arteries are patent without gross abnormality. Basilar artery is patent without focal stenosis or intimal flap. Superior cerebellar arteries are patent. No gross abnormality. abrasive band winder: Normal patency. No focal stenosis. No abrupt cut off. Ancillary findings: No main cerebral venous sinuses thrombosis. The thyroid gland is not enlarged. Bilateral pulmonary mosaic pattern. Multilevel cervical spondylosis pronounced at C6-7 and to a lesser extent from C2-3 to C5-6. IMPRESSION: No main cerebral artery occlusion or embolus or gross aneurysm. No dissection or high-grade degree stenosis, vessels of the neck. This critical result was discussed with emergency physician Dr. Prateek De Leon at 11:49 AM hours on July 12, 2025. It was ascertained that the content and urgency of the report was understood at the time of direct communication. Electronically signed by: Maxi Aparicio MD 07/12/2025 11:59 AM EDT RP Dictated By: Maix Larios MD Signed By: <Electronically signed by Maxi Chester MDin OV> 07/12/25 1159 DD/ 1137 TD/TT: 07/12/25 1142 [employer] Supervisor: [facility] External Provider IMG CT PROCEDURES Final Result documented in this encounter Visit Diagnoses Not on filedocumented in this encounter Additional Health Concerns Assessment Noted Time PHQ-9 Depression Total Score: 0 12/27/19 25 1:57 PM EDT documented as of this encounter Care Teams It Technician Relationship Specialty Start Date End Date Audrey Calvo MD [address] [place] [phone] PCP - General Family Medicine 05/09/17 documented as of this encounter
--- OUTSIDE RECORDS SUMMARY | 2025-07-15 12:51 | XMS_ITS | Encounter Summary ---
Author Organization [employer] Address [address] [place] [address] [facility] [place] [address] Care Team Providers Care Tape Machine Tailer Name Role Phone Audrey Calvo MD Primary Care Provider + Encounter Details Date Type Department Care Team (Latest Contact Info) Description 01/31/2019 Abstract [facility] Dental, Provider, DDS Social History Tobacco [...] Care Team ( st Contact Info) Description 07/16/2025 11:30 AM EDT Immunization [facility] [address] [place] [address] 07/30/2025 10:45 AM EST Office Visit [facility] [address] [place] [address] Audrey Calvo MD [address] [place] [address] 09/10/2025 11:00 AM EST Office Visit [facility] [address] [place] [address] 09/24/2025 2:00 PM EST Telemedicine [address] [address] Cristopher Lu, PharmD [address] [place] [address] 11/28/2025 1:00 PM EDT Office Visit [facility] [address] [place] [address] Liya Perez documented as of this encounter Visit Diagnoses Not on filedocumented in this encounter Care Teams Tape Machine Tailer Relationship Specialty Start Date End Date Audrey Calvo MD [address] [place] [address] PCP - General Family Medicine 05/09/17 documented as of this encounter
--- OUTSIDE RECORDS SUMMARY | 2025-07-15 12:51 | XMS_ITS | Clinical Summary ---
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, CMS/HCC V28) (Primary Dx); Achilles tendon tear, right, sequela; Disorder of ligament of ankle, right; Dermatophytosis, nail 05/03/2025 5:47 PM EDT - 05/03/2025 11:59 PM EDT Hospital Encounter [facility] MRI [address] [place] [id number] Achilles tendon tear, right, sequela; Disorder of [...] Upcoming Encounters Date Type Department Care Team ([facility] st Contact Info) Description 08/12/2025 10:00 AM EST Office Visit [facility] [address] [phone] Lso Peña, MARISABEL [address] [address] Health Maintenance Due Date Last Done Comments [...] mmol/L LAB CHEMISTRY METHOD 06/10/2025 3:21 PM [facility] Potassium 4.3 3.5 - 5.5 mmol/L LAB CHEMISTRY METHOD 06/10/2025 3:21 PM [facility] Chloride 106 96 - 110 mmol/L LAB CHEMISTRY METHOD 06/10/2025 3:21 PM [facility] CO2 32 21 - 32 mmol/L LAB CHEMISTRY METHOD 06/10/2025 3:21 PM [facility] Anion Gap 4 3 - 11 LAB CHEMISTRY METHOD 06/10/2025 3:21 PM [facility] Glucose 166(H) 70 - 100 mg/dL LAB CHEMISTRY METHOD 06/10/2025 3:21 PM [facility] BUN 10 5 - 25 mg/dL LAB CHEMISTRY METHOD 06/10/2025 3:21 PM [facility] Creatinine 0.71 0.50 - 1.10 mg/dL LAB CHEMISTRY METHOD 06/10/2025 3:21 PM [facility] eGFR 93 >=60 mL/min/1. 73m2 LAB CHEMISTRY METHOD 06/10/2025 3:21 PM [facility] Comment:Calculation based on the Chronic Kidney Disease Epidemiology Collaboration (CKD-EPI) equation refit without adjustment for race. BUN/Creatinine Ratio 14.1 LAB CHEMISTRY METHOD 06/10/2025 3:21 PM [facility] Calcium 9.5 8.5 - 10.5 mg/dL LAB CHEMISTRY METHOD 06/10/2025 3:21 PM [facility] AST (SGOT) 17 10 - 42 unit/L LAB CHEMISTRY METHOD 06/10/2025 3:21 PM [facility] ALT (SGPT) 28 10 - 60 unit/L LAB CHEMISTRY METHOD 06/10/2025 3:21 PM [facility] Alkaline Phosphatase 126(H) 42 - 121 unit/L LAB CHEMISTRY METHOD 06/10/2025 3:21 PM [facility] Total Protein 6.8 6.0 - 8.0 g/dL LAB CHEMISTRY METHOD 06/10/2025 3:21 PM [facility] Albumin 3.9 3.2 - 5.0 g/dL LAB CHEMISTRY METHOD 06/10/2025 3:21 PM [facility] Total Bilirubin 0.9 0.0 - 1.4 mg/dL LAB CHEMISTRY METHOD 06/10/2025 3:21 PM [facility] Blood Venous blood specimen / Unknown Venipuncture / Unknown 06/10/2025 10:31 AM EDT 06/10/2025 10:31 AM EDT us Los Peña DPM LAB BLOOD ORDERABLES Final Result [facility] [address] [place] [address], [place] [phone] * MR Ankle wo Contrast Right (05/03/2025 [...] Signed Date: 05/06/2025 15:53 ET Workstation ID: [id number] Transcribed By: Self Edit Transcribed Date: 05/06/2025 [...] Signed Date: 05/06/2025 15:53 ET Workstation ID: [id number] Transcribed By: Self Edit Transcribed Date: 05/06/2025 14:57 ET Los Peña DP IMG MRI PROCEDURES Final Re sult from Last 3 Months Insurance [facility] MEDICARE Member Subscriber Plan / Payer (Ef fective 2022-Present) Name:Kalyani Ford Relation to Subscriber:Self Name:SueKalyani Payer ID:[id number] Group ID:[id number] Type:Not on file Address: [address] [place] [phone] Care Teams Director Call Center Sales Relationship Specialty Start Date End Date Audrey Calvo MD [address] [place] [phone] PCP - General 02/17/24
--- OUTSIDE RECORDS SUMMARY | 2025-07-15 12:51 | XMS_ITS | Encounter Summary ---
Author Organization [employer] Address [address] [place] [address] 7 [place] [address] Care Team Providers Care Corporate Investigator Name Role Phone Audrey Calvo MD Primary Care Provider + Reason for Visit * Reason Onset Date Comments Appointment Request 12/11/2024 Encounter Details Date Type Department Care Team ([facility] Contact Info) Description 12/11/2024 Telephone [facility] [address] [place] [address] Audrey Calvo MD [address] [place] [address] Appointment Request Social History Tobacco Use Types [...] the past 12 months, has t he [employer], gas, oil or water company threatened to [...] R/s Apt from 12/11/24. Contact pt at [phone] documented in this encounter Plan of Treatment Upcoming Encounters Date Type Department Care Team ([facility] st Contact Info) Description 07/16/2025 11:30 AM EDT Immunization [facility] [address] [place] [phone] 07/30/2025 10:45 AM EST Office Visit [facility] [address] [place] [address] Audrey Calvo MD [address] [place] [address] 09/10/2025 11:00 AM EST Office Visit [address] [address] 09/24/2025 2:00 PM EST Telemedicine [address] [address] Cristopher Lu, PharmD [address] [place] [address] 11/28/2025 1:00 PM EDT Office Visit [facility] [address] [place] [address] Liya Perez documented as of this encounter Visit Diagnoses Not on filedocumented in this encounter Additional Health Concerns Assessment Noted Time PHQ-9 Depression Total Score: 3 02/14/20 24 1:55 PM EDT documented as of this encounter Care Teams Corporate Investigator Relationship Specialty Start Date End Date Audrey Calvo MD [address] [place], [place] [phone] PCP - General Family Medicine 05/09/17 documented as of this encounter
--- OUTSIDE RECORDS SUMMARY | 2025-07-15 12:51 | XMS_ITS | Encounter Summary ---
Author Organization [employer] Address [address] [facility] 7t [place] [address] Care Team Providers Care Cartridge Loader Name Role Phone Audrey Calvo MD Primary Care Provider + Encounter Details Date Type Department Care Team ([facility] Contact Info) Description 12/02/2023 Telephone [facility] [address] [place], [place] [phone] Audrey Calvo MD [address] [place] [address] Social History Tobacco Use Types Packs/Day Years [...] Info) Description 07/16/2025 11:30 AM EDT Immunization [facility] [address] [place] [address] 07/30/2025 10:45 AM EST Office Visit [address] [address] Audrey Calvo MD [address] [place] [address] 09/10/2025 11:00 AM EST Office Visit [address] [address] 09/24/2025 2:00 PM EST Telemedicine [address] [address] Cristopher Lu, MayankD [address] [place] [address] 11/28/2025 1:00 PM EDT Office Visit [facility] [address] [place] [address] Liya Perez documented as of this encounter Visit Diagnoses Not on filedocumented in this encounter Additional Health Concerns Assessment Noted Time PHQ-9 Depression Total Score: 0 12/23/19 9:08 AM EDT documented as of this encounter Care Teams Cartridge Loader Relationship Specialty Start Date End Date Audrey Calvo MD [address] [place] [phone] PCP - General Family Medicine 05/09/17 documented as of this encounter
--- OUTSIDE RECORDS SUMMARY | 2025-07-15 12:51 | XMS_ITS | Encounter Summary ---
Author Organization [employer] Address [address] [place] [address] 7 [place] [address] Care Team Providers Care Chef & Owner Name Role Phone Audrey Calvo MD Primary Care Provider + Encounter Details Date Type Department Care Team ([facility] Contact Info) Description 10/26/2022 Orders Only [facility] [address] [place] [address] [phone] Nila Gallardo LPN Social History Tobacco Use [...] Info) Description 07/16/2025 11:30 AM EDT Immunization [facility] [address] [place] [address] [phone] 07/30/2025 10:45 AM EST Office Visit [address] [phone] Audrey Calvo MD [address] [place] [address] [phone] 09/10/2025 11:00 AM EST Office Visit [facility] [address] [place] [address] [phone] 09/24/2025 2:00 PM EST Telemedicine [facility] [address] [place] [address] 39718 Cristopher Lu, Kelli [address] [place] [address] 11/28/2025 1:00 PM EDT Office Visit [facility] ADULT DENTAL [address] [place] [address] [phone] Liya Perez documented as of this encounter Procedures Procedure Name Priority Date/Time Associated Diagnosis Comments BI MAMMOGRAM SCREENING TOMOSYNTHESIS BILATERAL Routine 11/09/2022 8:12 AM EST documented in this encounter Results * BI Mammogram Screening Tomosynthesis Bilateral (11/09/2022 8:12 AM EST) Anatomical Region Laterality Modality Breast Bilateral Mammography 11/09/2022 8:12 AM EST Narrative 11/10/2022 8:58 AM EST [facility] [address] [place] [address] Mammography Report Signed Patient: Kalyani Rogers I MR#: [id number] [birth year] : 1955 Acct:[id number] Age/Sex: 67 / F ADM Date: 11/09/22 Loc: HO.MAMMO Attending Dr: Audrey Calvo MD Ordering Physician: Audrey Calvo MD Results: 1Ne gative Date of Service: 11/09/22 Follow Up: 1 Year From Orig inal Mammogram Procedure(s): MM tomosynthesis screening BI Accession Number(s): [id number] cc: Audrey Calvo MD EXAMINATION: MM SCREENING [...] signed by Chandra Moseley MD in OV> 11/10/22854 DD/ 1 TD/TT: Gyroscopic Engineering Technician: BRITTANI Procedure Note Donotuseinterpreter, Image - 11/10/2022 [facility] [address] [place] [address] Mammography Report Signed Patient: Kalyani Rogers IMR#: [id number] [birth year] : 7Acct:[id number] Age/Sex: 67 / FADM Date: 11/09/22 Loc: .MAMMO Attending Dr: Audrey Calvo MD Ordering Physician: Audrey Calvo MDResults: 1Ne gative Date of Service: 11/09/22Follow Up: 1 Year From Orig inal Mammogram Procedure(s): MM tomosynthesis screening BI Accession Number(s): [id number] cc: Audrey Calvo MD EXAMINATION: MM SCREENING [...] signed by Chandra Moseley MD in OV> 11/10/22854 DD/ TD/TT: Gyroscopic Engineering Technician: BRITTANI [employer] External Provider IMG BI PROCEDURES Edited Result - Final documented in this encounter Visit Diagnoses Not on filedocumented in this encounter Care Teams Chef & Owner Relationship Specialty Start Date End Date Audrey Calvo MD [address] [place] [address] [phone] PCP - General Family Medicine 05/09/17 documented as of this encounter
--- OUTSIDE RECORDS SUMMARY | 2025-07-15 12:51 | XMS_ITS | Encounter Summary ---
Author Organization [employer] Address [address] [place] [address] 7 [place] [address] Care Team Providers Care Uat Tester Name Role Phone Audrey Calvo MD Primary Care Provider + Reason for Visit * Reason Comments Med Refill Encounter Details Date Type Department Care Team ([facility] st Contact Info) Description 01/02/2025 Refill [facility] [address] [place] [address] Audrey Calvo MD [address] [place] [address] Social History Tobacco Use Types Packs/Day Years [...] Info) Description 07/16/2025 11:30 AM EDT Immunization [facility] [address] [place] [address] 1975[address] 07/30/2025 10:45 AM EST Office Visit [facility] [address] [place] [address] 16747 Audrey Calvo MD [address] [place] [address] [phone] 09/10/2025 11:00 AM EST Office Visit [facility] [address] [place] [address] 22458 09/24/2025 2:00 PM EST Telemedicine [facility] [address] [place] [address] 62027 Cristopher Lu, PharmD [address] [place] [address] 7[address] 11/28/2025 1:00 PM EDT Office Visit [facility] ADULT DENTAL [address] [place] [address] 50232 Liya Perez documented as of this encounter Visit Diagnoses Not on filedocumented in this encounter Additional Health Concerns Assessment Noted Time PHQ-9 Depression Total Score: 0 12/27/19 25 1:57 PM EDT documented as of this encounter Care Teams Uat Tester Relationship Specialty Start Date End Date Audrey Calvo MD [address] [place] [address] PCP - General Family Medicine 05/09/17 documented as of this encounter
--- OUTSIDE RECORDS SUMMARY | 2025-07-15 12:51 | XMS_ITS | Encounter Summary ---
Author Organization [employer] Address [address] [facility] 7t [place] [address] Care Team Providers Care Supervisor Blast Furnace Name Role Phone Audrey Calvo MD Primary Care Provider + Encounter Details Date Type Department Care Team ([facility] Contact Info) Description 02/05/2025 Telephone [facility] [address] [place], [place] [phone] Audrey Calvo MD [address] [place] [address] Social History Tobacco Use Types Packs/Day Years [...] Info) Description 07/16/2025 11:30 AM EDT Immunization [facility] [address] [place] [address] 10329 07/30/2025 10:45 AM EST Office Visit [facility] [address] [place] [address] Audrey Calvo MD [address] [place] [address] 24654 09/10/2025 11:00 AM EST Office Visit [facility] [address] [place] [address] 55222 09/24/2025 2:00 PM EST Telemedicine [facility] [address] [place] [address] 74612 Cristopher Lu, PharmD [address] [place] [address] 53620 11/28/2025 1:00 PM EDT Office Visit [facility] ADULT DENTAL [address] [place] [address] [phone] Liya Perez documented as of this encounter Visit Diagnoses Not on filedocumented in this encounter Additional Health Concerns Assessment Noted Time PHQ-9 Depression Total Score: 0 12/27/19 25 1:57 PM EDT documented as of this encounter Care Teams Supervisor Blast Furnace Relationship Specialty Start Date End Date Audrey Calvo MD [address] [place], [place] [phone] PCP - General Family Medicine 05/09/17 documented as of this encounter
--- OUTSIDE RECORDS SUMMARY | 2025-07-15 12:52 | XMS_ITS | Encounter Summary ---
Author Organization [employer] Address [address] [place] [address] 7 [place] [address] Care Team Providers Care Spanish Tutor Name Role Phone Audrey Calvo MD Primary Care Provider + Reason for Visit * Reason Comments Med Refill Encounter Details Date Type Department Care Team ([facility] st Contact Info) Description 09/20/[address] [facility] [address] [place] [address] Audrey Calvo MD [address] [place] [address] Chronic rhinitis Social History Tobacco Use Types [...] Info) Description 07/16/2025 11:30 AM EDT Immunization [facility] [address] [place] [address] 02129 07/30/2025 10:45 AM EST Office Visit [facility] [address] [place] [address] 31092 Audrey Calvo MD [address] [place] [address] 87808 09/10/2025 11:00 AM EST Office Visit [facility] [address] [place] [address] 78874 09/24/2025 2:00 PM EST Telemedicine [facility] [address] [place] [address] 93250 Cristopher Lu, MayankD [address] [place] [address] 28303 11/28/2025 1:00 PM EDT Office Visit [facility] ADULT DENTAL [address] [place] [address] 00369 Liya Perez documented as of this encounter Visit Diagnoses Diagnosis Chronic rhinitis documented in this encounter Additional Health Concerns Assessment Noted Time PHQ-9 Depression Total Score: 3 02/14/20 24 1:55 PM EDT documented as of this encounter Care Teams Spanish Tutor Relationship Specialty Start Date End Date Audrey Calvo MD [address] [place] [address] [phone] PCP - General Family Medicine 05/09/17 documented as of this encounter
--- OUTSIDE RECORDS SUMMARY | 2025-07-15 12:52 | XMS_ITS | Encounter Summary ---
Author Organization [employer] Address [address] [place] [address] 7 [place] [address] Care Team Providers Care Business Continuity Management Director Name Role Phone Audrey Calvo MD Primary Care Provider + Reason for Visit * Reason Comments Med Refill Encounter Details Date Type Department Care Team ([facility] st Contact Info) Description 01/09/2025 Refill [facility] [address] [place] [address] Audrey Calvo MD [address] [place] [address] Achilles tendinitis of right lower extremity Social [...] Info) Description 07/16/2025 11:30 AM EDT Immunization [facility] [address] [place] [address] 60[address] 07/30/2025 10:45 AM EST Office Visit [address] [address] Audery Calvo MD [address] [place] [address] 65556 09/10/2025 11:00 AM EST Office Visit [address] [address] 09/24/2025 2:00 PM EST Telemedicine [address] [address] Cristopher Lu, PharmD [address] [place] [address] 05868 11/28/2025 1:00 PM EDT Office Visit [facility] ADULT DENTAL [address] [place] [address] Liya Perez documented as of this encounter Visit Diagnoses Diagnosis Achilles tendinitis of right lower extremity documented in this encounter Additional Health Concerns Assessment Noted Time PHQ-9 Depression Total Score: 0 12/27/19 25 1:57 PM EDT documented as of this encounter Care Teams Business Continuity Management Director Relationship Specialty Start Date End Date Audrey Calvo MD [address] [place] [address] PCP - General Family Medicine 05/09/17 documented as of this encounter
--- OUTSIDE RECORDS SUMMARY | 2025-07-15 12:52 | XMS_ITS | Encounter Summary ---
Author Organization [employer] Address [address] [place] [address] [place] [address] Care Team Providers Care Senior Business Analyst Name Role Phone Audrey Calvo MD Primary Care Provider + Reason for Visit * Reason Comments Med Refill Encounter Details Date Type Department Care Team ([facility] Contact Info) Description 03/31/2023 Refill [facility] [address] [place] [address] 6[address] Audrey Calvo MD [address] [place] [address]142 HTN (hypertension), benign Social History Tobacco Use [...] Department Care Team (Late Contact Info) Description 07/16/2025 11:30 AM EDT Immunization [facility] [address] [place] [address] [phone] 07/30/2025 10:45 AM EST Office Visit [facility] [address] [place] [address] Audrey Calvo MD [address] [place] [address] 09/10/2025 11:00 AM EST Office Visit [address] [phone] 09/24/2025 2:00 PM EST Telemedicine [facility] [address] [place] [address] [phone] Cristopher Lu, PharmD [address] [place], [place] [phone] 11/28/2025 1:00 PM EDT Office Visit [facility] ADULT DENTAL [address] [place] [address] 83073 Liya Perez documented as of this encounter Visit Diagnoses Diagnosis HTN (hypertension), benign Essential hypertension, benign documented in this encounter Additional Health Concerns Assessment Noted Time PHQ-9 Depression Total Score: 0 12/23/19 23 9:08 AM EDT documented as of this encounter Care Teams Senior Business Analyst Relationship Specialty Start Date End Date Audrey Calvo MD [address] [place] [phone] PCP - General Family Medicine 05/09/17 documented as of this encounter
--- OUTSIDE RECORDS SUMMARY | 2025-07-15 12:52 | XMS_ITS | Encounter Summary ---
Author Organization [employer] Address [address] [place] [address] 7t [place] [address] Care Team Providers Care Diamond Mounter Name Role Phone Audrey Calvo MD Primary Care Provider + Encounter Details Date Type Department Care Team ([facility] st Contact Info) Description 11/22/[address] [facility] MED & PEDS [address] [place] [address] Emi Gill LPN Social History Tobacco Use [...] Description 07/16/2025 11:[address] [facility] [address] [place] [address] 44131 07/30/2025 10:45 AM EST Office Visit [address] [address] Audrey Calvo MD 230 [place] [address] 09/10/2025 11:00 AM EST Office Visit [address] [address] 09/24/2025 2:00 PM EST Telemedicine [address] [phone] Cristopher Lu, MayankD 230 [place] [address] 11/28/2025 1:00 PM EDT Office Visit [facility] ADULT DENTAL [address] [place] [address] Liya Perez documented as of this encounter Procedures Procedure Name Priority Date/Time Associated Diagnosis Comments BD DEXA AXIAL Routine 12/07/2022 11:21 AM EDT documented in this encounter Results * BD DEXA Axial (12/07/2022 11:21 AM EDT) Anatomical Region Laterality Modality Body Radiographic Farheen ging 12/07/2022 11:2 1 AM EDT Narrative 12/08/2022 7:44 AM EDT [facility] [address] [place] [address] Mammography Report Signed Patient: Kalyani Rogers I MR#: [id number] [birth year] : 1955 Acct:[id number] Age/Sex: 67 / F ADM Date: 12/07/22 Loc: HO.MAMMO Attending Dr: Audrey Calvo MD Ordering Physician: Audrey Calvo MD Results: Date of Service: 12/07/22 Follow Up: Procedure(s): XR DEXA axial skeleton Accession Number(s): [id number] cc: Audrey Calvo MD EXAMINATION: BONE DENSITOMETRY CLINICAL INDICATION: Screening. COMPARISON: Previous BD dated 10/14/2017 and baseline BD dated 11/13/2013. TECHNIQUE: Using a [employer] DXA System (software version: 13.1) manufactured by [employer], dual-energy x-ray absorptiometry was performed of the [...] in OV> 12/08/22 0741 DD/ 1121 TD/TT: Aeronautical Design Engineer: PATTERSON Procedure Note Donotuseinterpreter, Image - 12/08/[facility] [address] [place] [address] Mammography Report Signed Patient: Kalyani Rogers [facility]#: [id number] [birth year] : 7Acct:[id number] Age/Sex: 67 / FADM Date: 12/07/22 Loc: HO.MAMMO Attending Dr: Audrey Calvo MD Ordering Physician: Audrey Calvo MDResults: Date of Service: 12/07/22Follow Up: Procedure(s): XR DEXA axial skeleton Accession Number(s): [id number] cc: Audrey Calvo MD EXAMINATION: BONE DENSITOMETRY CLINICAL INDICATION: Screening. COMPARISON: Previous BD dated 10/14/2017 and baseline BD dated 11/13/2013. TECHNIQUE: Using a [employer] DXA System (software version: 13.1) manufactured by [employer], dual-energy x-ray absorptiometry was performed of the [...] in OV> 12/08/22 0741 DD/ 1121 TD/TT: Aeronautical Design Engineer: PATTERSON [facility] External Provider IMG DXA PROCEDURES Final Result documented in this encounter Visit Diagnoses Not on filedocumented in this encounter Care Teams Diamond Mounter Relationship Specialty Start Date End Date Audrey Calvo MD [address] [place] [address] [phone] PCP - General Family Medicine 05/09/17 documented as of this encounter
--- OUTSIDE RECORDS SUMMARY | 2025-07-15 12:52 | XMS_ITS | Encounter Summary ---
Author Organization [employer] Address [address] [place] [address] [facility] [place] [address] Care Team Providers Care Armament Repairer Name Role Phone Audrey Calvo MD Primary Care Provider + Reason for Referral * Consultation (Routine) - Canceled Specialty Diagnoses / Procedures Referred By Contac t Referred To Contact Pharmacy Diagnoses Primary hypertension Audrey Calvo MD [address] [place] [address] [phone] Phone: tel: fax: Referral ID Status Reason Start Date Expiration Date V isits Requested Visits Authorized [id number] Canceled Continuity of Care 01/10/2025 01/10/2026 6 6 Encounter Details Date Type Department Care Team (Late st Contact Info) Description 01/09/2025 Orders Only [facility] [address] [place] [address] [phone] Audrey Calvo MD [address] [place], [place] [phone] Primary hypertension (Primary Dx) Social History Tobacco [...] Info) Description 07/16/2025 11:30 AM EDT Immunization [facility] [address] [place] [address] [phone] 07/30/2025 10:45 AM EST Office Visit [facility] [address] [place] [address] 18627 Audrey Calvo MD [address] [place] [address] 09/10/2025 11:00 AM EST Office Visit [facility] [address] [place] [address] [phone] 09/24/2025 2:00 PM EST Telemedicine [facility] [address] [place] [address] [phone] Cristopher Lu PharmD [address] [place], [place] [phone] 11/28/2025 1:00 PM EDT Office Visit [facility] ADULT DENTAL [address] [place] [address] [phone] Liya Perez Scheduled Referrals Name Type Priority [...] AM EDT Narrative 01/27/2025 9:44 PM EDT [facility] [address] [place] [address] Mammography Report Signed Patient: Kalyani Rogers I MR#: [id number] [birth year] : 1955 Acct:[id number] Age/Sex: 69 / F ADM Date: 01/22/25 Loc: HO.MAMMO Attending Dr: Audrey Calvo MD Ordering Physician: Audrey Calvo MD Results: 1Ne gative Date of Service: 01/22/25 Follow Up: 1 Year From Orig inal Mammogram Procedure(s): MM tomosynthesis screening BI Accession Number(s): [id number] cc: Audrey Calvo MD; Name,Srinivas COOK EXAMINATION: [...] Ita Copeland DO 01/27/2025 09:41 PM EDT RP Dictated By: Ita Copeland DO Signed By: <Electronically signed by Ita Copeland DO in OV> 01/27/252140 DD/ 09 TD/TT: 01/22/25 09 Process Improvement Specialist: Procedure Note Donotuseinterpreter, Image - [facility]/27/[facility] [address] [place] [address] Mammography Report Signed Patient: Kalyani Rogers IMR#: [id number] [birth year] : 7Acct:[id number] Age/Sex: 69 / FADM Date: 01/22/25 Loc: MAMMO Attending Dr: Audrey Calvo MD Ordering Physician: Audrey Calvo MDResults: 1Ne gative Date of Service: 01/22/25Follow Up: 1 Year From Orig inal Mammogram Procedure(s): MM tomosynthesis screening BI Accession Number(s): [id number] cc: Audrey Calvo MD; Name,Srinivas COOK EXAMINATION: [...] Ita Copeland DO 01/27/2025 09:41 PM EDT RP Dictated By: Ita Copeland DO Signed By: <Electronically signed by Ita Copeland DO in OV> 01/27/25 2141 DD/ 0900 TD/TT: 01/22/25 09 Process Improvement Specialist: Audrey Calvo MD IMG BI PROCEDURES Final Result documented in this encounter Visit Diagnoses Diagnosis Primary hypertension- Primary Unspecified essential hypertension documented in this encounter Additional Health Concerns Assessment Noted Time PHQ-9 Depression Total Score: 0 12/27/19 1:57 PM EDT documented as of this encounter Care Teams Armament Repairer Relationship Specialty Start Date End Date Audrey Calvo MD [address] [place] [address] [phone] PCP - General Family Medicine 05/09/17 documented as of this encounter
--- OUTSIDE RECORDS SUMMARY | 2025-07-15 12:52 | XMS_ITS | Encounter Summary ---
Author Organization [employer] Address [address] [facility] 7t [place] [address] Care Team Providers Care Inside Sales Consultant Name Role Phone Audrey Calvo MD Primary Care Provider + Encounter Details Date Type Department Care Team ([facility] st Contact Info) Description 02/15/2024 Orders Only [facility] [address] [place], [place] [phone] Provider, MD [place] Social History Tobacco Use [...] Info) Description 07/16/2025 11:30 AM EDT Immunization [address] [address] 07/30/2025 10:45 AM EST Office Visit [address] [address] Audrey Calvo MD [address] [place] [address] 09/10/2025 11:00 AM EST Office Visit [address] [address] 09/24/2025 2:00 PM EST Telemedicine [address] [address] Cristopher Lu, PharmD [address] [place] [address] 85024 11/28/2025 1:00 PM EDT Office Visit [facility] ADULT DENTAL [address] [place] [phone] Liya Perez documented as of this encounter Procedures Procedure Name Priority Date/Time Associated Diagnosis Comments COLONOSCOPY Routine 08/28/2019 8:20 AM EST documented in this encounter Results * Colonoscopy (08/28/2019 8:20 AM EST) us Historical Provider HEALTH MAINTENANCE Final Result documented in this encounter Visit Diagnoses Not on filedocumented in this encounter Additional Health Concerns Assessment Noted Time PHQ-9 Depression Total Score: 3 02/14/20 24 1:55 PM EDT documented as of this encounter Care Teams Inside Sales Consultant Relationship Specialty Start Date End Date Audrey Calvo MD [address] [place] [address] [phone] PCP - General Family Medicine 05/09/17 documented as of this encounter
--- OUTSIDE RECORDS SUMMARY | 2025-07-15 12:52 | XMS_ITS | Encounter Summary ---
Author Organization [employer] Address [address] [facility] 7t [place] [address] Care Team Providers Care Nylon Mender Name Role Phone Audrey Calvo MD Primary Care Provider + Encounter Details Date Type Department Care Team ([facility] Contact Info) Description 09/06/2024 Telephone [facility] [address] [place], [place] [phone] Audrey Calvo MD [address] [place] [address] Social History Tobacco Use Types Packs/Day Years [...] Info) Description 07/16/2025 11:30 AM EDT Immunization [facility] [address] [place] [address] 07/30/2025 10:45 AM EST Office Visit [facility] [address] [place] [address] Audrey Calvo MD [address] [place] [address] 09/10/2025 11:00 AM EST Office Visit [facility] [address] [place] [address] 140[address] 09/24/2025 2:00 PM EST Telemedicine [facility] [address] [place] [address] Cristopher Lu, MayankD [address] [place] [address] 11/28/2025 1:00 PM EDT Office Visit [facility] ADULT D[facility] [address] [place] [address] Liya Perez documented as of this encounter Visit Diagnoses Not on filedocumented in this encounter Additional Health Concerns Assessment Noted Time PHQ-9 Depression Total Score: 3 02/14/20 24 1:55 PM EDT documented as of this encounter Care Teams Nylon Mender Relationship Specialty Start Date End Date Audrey Calvo MD [address] [place] [phone] PCP - General Family Medicine 05/09/17 documented as of this encounter
--- OUTSIDE RECORDS SUMMARY | 2025-07-15 12:52 | XMS_ITS | Encounter Summary ---
Author Organization [employer] Address [address] [place] [address] 7 [place] [address] Care Team Providers Care Banquet Line Cook Name Role Phone Audrey Calvo MD Primary Care Provider + Encounter Details Date Type Department Care Team (Late st Contact Info) Description 09/27/2022 Orders Only [facility] [address] [place] [address] Emi Gill LPN Social History Tobacco Use [...] Info) Description 07/16/2025 11:30 AM EDT Immunization [facility] [address] [place] [phone] 07/30/2025 10:45 AM EST Office Visit [facility] [address] [place] [phone] Audrey Calvo MD [address] [place] [phone] 09/10/2025 11:00 AM EST Office Visit [facility] [address] [place] [phone] 09/24/2025 2:00 PM EST Telemedicine [facility] [address] [place] [address] Cristopher Lu, MayankD [address] [place] [address] 11/28/2025 1:00 PM EDT Office Visit [facility] [address] [place] [address] Liya Perez documented as of this encounter Visit Diagnoses Not on filedocumented in this encounter Care Teams Banquet Line Cook Relationship Specialty Start Date End Date Audrey Calvo MD [address] [place] [address] PCP - General Family Medicine 05/09/17 documented as of this encounter
--- OUTSIDE RECORDS SUMMARY | 2025-07-15 12:52 | XMS_ITS | Encounter Summary ---
Author Organization [employer] Address [address] [place] [address] 7 [place] [address] Care Team Providers Care Set Up Inspector Name Role Phone Audrey Calvo MD Primary Care Provider + Reason for Visit * Reason Comments Med Refill Encounter Details Date Type Department Care Team ([facility] st Contact Info) Description 03/29/2025 Refill [facility] [address] [place] [address] Audrey Calvo MD [address] [place] [address] Diabetic polyneuropathy associated with type 2 diabetes mellitus (CMS/HCC) Social History Tobacco Use Types Packs/Day Years [...] Info) Description 07/16/2025 11:30 AM EDT Immunization [address] [address] 07/30/2025 10:45 AM EST Office Visit [address] [address] Audrey Calvo MD [address] [place] [phone] 09/10/2025 11:00 AM EST Office Visit [address] [address] 09/24/2025 2:00 PM EST Telemedicine [address] [address] Cristopher uL, PharmD [address] [place] [phone] 11/28/2025 1:00 PM EDT Office Visit [facility] [address] [place] [address] Liya Perez documented as of this encounter Visit Diagnoses Diagnosis Diabetic polyneuropathy associated with type 2 diabetes mellitus (HCC) documented in this encounter Additional Health Concerns Assessment Noted Time PHQ-9 Depression Total Score: 0 12/27/19 25 1:57 PM EDT documented as of this encounter Care Teams Set Up Inspector Relationship Specialty Start Date End Date Audrey Calvo MD [address] [place] [address] PCP - General Family Medicine 05/09/17 documented as of this encounter
--- OUTSIDE RECORDS SUMMARY | 2025-07-15 12:53 | XMS_ITS | Clinical Summary ---
Author Organization [employer] Address [address] [place] [address] 7 [place] [address] Care Team Providers Care Cement Finisher Name Role Phone Audrey Calvo MD Primary Care Provider + Allergies Active Allergy Reactions Criticality Noted Date Comments Aspirin 08/15/2018 Gramineae Pollens Shortness of breath High 3 Medications * This document contains information received from the source organization and may not represent a complete record from that organization. TRUEplus Lancets 33G miscIndications:T ype 2 diabetes mellitus with unspecified complications (HCC) TEST BLOOD SUGAR TWICE DAILY 100 each 11 023 Active Alcohol Swabs (Alcohol Prep) 70 % pads USE DIRECTED UP TO 4 TIMES PER DAY 100 each 11 024 Active rosuvastatin (Crestor) 40 MG tablet TAKE 1 TABLET BY MOUTH AT BEDTIME 90 tablet 3 024 Active chlorthalidone (Hygroton) 25 MG tabletIndications :HTN (hypertension), benign TAKE 1 TABLET BY MOUTH EVERY MORNING 90 tablet 3 025 Active lidocaine (Lidoderm) 5 % patchIndications: Primary osteoarthritis of both knees,Other chronic pain APPLY 1 PATCH TOPICALLY TO SKIN, LEAVE ON FOR 12 HOURS AND OFF FOR 12 HOURS DIRECTED 30 patch 3 025 Active enalapril (Vasotec) 20 MG tabletIndications :Primary hypertension TAKE 1 TABLET BY MOUTH EVERY MORNING 90 tablet 1 025 Active Dulaglutide (Trulicity) 4.5 MG/0.5ML solution auto-injectorIndi cations:Type 2 diabetes mellitus with hyperglycemia, without long-term current use of insulin ([facility]) Inject 4.5 mg under the skin 1 (one) time per week. 2 mL Active Polyvinyl Alcohol-Povidone 5-6 MG/ML solution Administer 2 drops into affected eye(s) if needed in the morning, at noon, and at bedtime (dry eye). 15 mL 3 Active Narcan 4 MG/0.1ML nasal spray FOR [...] by mouth in the morning. 90 tablet Active albuterol (Ventolin HFA) 108 (90 Base) MCG/ACT inhaler Inhale 2 puffs if needed for wheezing or shortness of breath. Every 4 to 6 hours Active albuterol (2.5 MG/3ML) 0.083% nebulizer solution Inhale 3 mL in the morning and 3 mL at noon and 3 mL in the evening and 3 mL before bedtime. Active esomeprazole (NexIUM) [address] capsule Take 1 capsule by mouth in the morning. 024 Active Blood Pressure kitIndications:Pr imary hypertension Use to monitor blood pressure at home 1 kit Active Continuous Glucose Pie Maker Machine (FreeStyle Marcos 2 [place]) deviceIndications :Type 2 diabetes mellitus with hyperglycemia, without long-term current use of insulin ([facility]) Use to scan sensor every 8 hours as directed 1 each Active Lantus SoloStar 100 UNIT/ML penIndications:Ty pe 2 diabetes mellitus with hyperglycemia, without long-term current use of insulin ([facility]) Inject 20 units subcutaneously every evening 3 mL Active fluticasone (Flonase) 50 MCG/ACT nasal spray Administer 1 spray into each nostril Once per day. 16 g 025 Active Pentips Generic Pen [place] 32G X 4 MM misc USE ONCE DAILY DIRECTED 100 each 4 025 Active capsaicin (Capzasin-HP) 0.1 % creamIndications: Primary osteoarthritis of left knee Apply thin layer by topical route up to 4 times daily for pain. 45 g 3 025 Active lidocaine (Xylocaine) 5 % ointmentIndicatio ns:Primary osteoarthritis of left knee Apply topically if needed in the morning, at noon, and at bedtime (pain). 30 g 3 025 2025 Active Continuous Glucose Sensor (FreeStyle Marcos 2 Sensor) miscIndications:T ype 2 diabetes mellitus with hyperglycemia, without long-term current use of insulin (HCC) USE TO TEST BLOOD SUGAR DIRECTED. CHANGE EVERY 14 DAYS 2 each 11 025 Active Diclofenac Sodium 1 % gelIndications:Pr imary osteoarthritis of left knee APPLY 2 GRAMS TO AFFECTED AREA(S) THREE TIMES DAILY NEEDED FOR PAIN 100 g 1 025 Active estradiol (Estrace) 0.1 MG/GM vaginal cream INSERT A PEA SIZED AMOUNT VAGINALLY TO THE URETHRA 3 TIMES A WEEK DIRECTED Active famotidine (Pepcid) 20 MG tablet Take 20 mg by mouth at bedtime. 025 Active oxyCODONE-acetami nophen (Percocet) 10-325 MG tabletIndications :Achilles tendinitis of right lower extremity TAKE 1 TABLET BY MOUTH EVERY TWELVE HOURS NEEDED FOR SEVERE PAIN FOR UP TO 28 DAYS 56 tablet 025 Active pregabalin (Lyrica) 75 MG capsuleIndication s:Primary osteoarthritis of knee, unspecified laterality TAKE 1 CAPSULE BY MOUTH AT BEDTIME 30 capsule 025 Active pregabalin (Lyrica) 75 MG capsuleIndication s:Primary osteoarthritis of knee, unspecified laterality Take 1 capsule (75 mg) by mouth at bedtime. 30 capsule 025 2024 Discontinued Active Problems Problem Noted Date Diagnosed Date Dumping syndrome 04/25/2025 Assessment & Plan (04/25/2025 4:29 PM EDT): Patient with acute symptoms and no other S/S suggestive of infectious or cardiovascular condition. We discussed with patient regarding physiopathology of the condition, prevention and I gave her information for treatment. We discussed about proper hydration for the next few hours, advance to soft diet as tolerated tonight and add small protein portion to each small and fractioned meal Advised her to go to ED if she develop fever, chills, worsening nausea or vomiting and diarrhea does not stop. Also she developed chest pain or persistent cough. 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 Agreement renewed. -01/08/25: Group visit, utox/pill count wnl -03/12/25: Group visit, utox/pill count wnl -05/14/25: Group visit, utox/pill count wnl Assessment & Plan (03/12/2025 6:28 PM EDT): Timeline: -12/08/23: Indv RN visit, Utox/pill count WNL -02/28/24: Group visit, Utox/pill count WNL -03/27/24: Group visit, Utox/pill count WNL -06/12/24: Group visit, Utox/pill count WNL -08/14/24: Group visit, Utox/pill count WNL -10/16/24: Group visit, Utox/pill count WNL. Agreement renewed. -01/08/25: Group visit, utox/pill count wnl -03/12/25: Group visit, utox/pill count wnl Assessment & Plan (10/18/2024 4:57 PM EST): [...] infraction meals - refer back to GI Screening mammogram for breast cancer 12/23/2023 Routine physical examination 12/23/2023 Assessment & Plan (01/10/2025 9:57 AM EDT): Patient here for a routine physical exam that showed bilateral hearing loss, for which she is already being referred to Audiology by PCP Preventive Health Care: Mammo 01/17/2024 Normal DEXA: 12/07/2022: Normal Pap: referred to [facility] by PCP Colonoscopy 08/28/2019 Dr Howard Assessment & Plan (01/01/2025 4:52 PM EDT): Patient will call [facility] to reschedule Pap smear, I will follow-up at next appointment Osteoarthritis of right ankle and foot Bifascicular block 02/03/2023 Cough 02/03/2023 Exacerbation of intermittent asthma 02/03/2023 Dietary counseling 12/22/2022 Assessment & Plan (12/22/2022 10:37 AM EDT): Pt with weight gain over the past year after renal abscess recommened to schedule appointment to fu with dietitian from weight management program with [facility] ct scan to fu renal abcess is [...] , patient wants to be referred to [facility]. Mammogram Overdue, I will schedule mammo. Bone [...] scheduled for PAP smear, will refer to bulk station agent Mammogram: up to date, next one due [...] activity. Osteochondroma of bone 10/20/2022 Hiatal hernia with GERD 10/20/2022 Assessment & Plan (02/01/2025 12:58 PM EDT): >>ASSESSMENT AND PLAN FOR HIATAL HERNIA WRITTEN ON 10/20/2022 2:32 PM BY STANFORD SAHU S/p EGD 2015. Symptoms seem to be exacerbated after she has been putting on more weight. Counseled regarding having smaller in fraction meals, decrease calorie intake, post-prandial ambulation for at least 15 minutes and avoid lying down post- prandial. Information regarding her condition was shared with the patient today. FU in 3 months. Assessment & Plan (02/14/2024 6:33 PM EDT): - status post EGD [place] [address] Mills - pt has lost significant amount of weight since - continue PPI management - refer to GI Disorder of vein 12/29/2018 Achilles tendinitis 11/17/2018 Assessment & Plan (07/29/2023 10:27 AM EST): S/p surgery, doing well on a walking surgical shoe Fu w/ orthopedics Cont percocet BID + tylenol in between Reminded Pt to be compliant with POWER ELECTRONICS ENGINEER Tubular adenoma of colon 07/17/2018 Calcaneal spur 07/05/2017 Assessment & Plan (01/01/2025 4:49 PM EDT): Rx diabetic shoes and inserts, needs special support for calcaneal sports Refer to podiatry Right bundle branch block 12/10/2013 Asthma 02/11/2012 [...] meals Primary hypertension 02/11/2012 Assessment & Plan (04/25/2025 4:31 PM EDT): Uncontrolled today, likely related to dumping syndrome and recent diarrhea Continue monitoring BP at home, advised regarding proper hydration and continue chlorthalidone and enalapril Monitor BP at home daily for the next 2 weeks, if BP continues to be above 140/85 for more than 3 days, she will call to make an appointment or come to the walk-in center. Assessment & Plan (01/01/2025 4:49 PM EDT): [...] use of insulin 02/11/2012 Assessment & Plan (04/25/2025 4:27 PM EDT): Fairly controlled. A1c is at goal. Continue on Trulicity and Lantus 20 units Counseled re more frequent low calorie/carb meals. Check fgstk 2x daily Encouraged physical activity as tolerated. FU in 3 months. Seen by ophthalmology last month Foot examination is normal, no diabetic neuropathy Assessment & Plan (02/01/2025 12:58 PM EDT): Still running with hyperglycemia, will increase Lantus to 20 units and she will follow-up with me in 6 weeks Continue Trulicity 4.5 mg Assessment & Plan (01/01/2025 4:51 PM EDT): [...] rx for CPAP sent to [facility] on 11/03/23 Patient will fu with [facility] re provider for CPAP She's aware [...] with her. Osteoarthritis of knee 03/10/2011 Overview (03/12/2025): XR left knee 07/10/24: Mild osteoarthritis. No fracture or joint effusion. [facility] Ortho: consult 02/26/25 with plan for MRI knee for further eval Assessment & Plan (05/14/2025 2:04 PM EDT): -Good engagement and participation with Group Medical Visit model -Encouraged multifactorial approach to pain control including pharm and non- pharm modalities -UTOX and Pill count as expected Assessment & Plan (03/12/2025 6:26 PM EDT): -Good engagement and participation with Group Medical Visit model -Encouraged multifactorial approach to pain control including pharm and non- pharm modalities -UTOX and Pill count as expected Assessment & Plan (02/01/2025 12:56 PM EDT): Referral to orthopedics has been done, information given to patient today to schedule her appointment. I will switch to Lyrica CR 82 mg/day instead of 75 mg nightly to improve coverage and efficacy during the daytime and decrease risk of side effects especially dizziness. Assessment & Plan (01/01/2025 4:50 PM EDT): [...] of multiple topical analgesics after discussion with [facility] Pharmacist - meds sent to pharmacy [...] with inserts and FU in 3 months. Calcific tendinitis 12/23/2009 Cervical spondylosis 12/18/2009 Overview (08/14/2024): MRI Cervical Spine 12/11/12: M ild cervical spondylosis as described, more significant at C5-C6 and C6-C7. Mild to moderate bilateral foraminal narrowing at the C6-C7 level. Assessment & Plan (03/31/2023 12:00 PM EDT): Doing well on oxycodone PRN Continue close fu with POWER ELECTRONICS ENGINEER program We have done [employer] education re [...] Problem Noted Date Diagnosed Date Resolved Date Acute nausea with nonbilious vomiting 10/20/2023 02/01/2025 Assessment & Plan (10/20/2023 1:17 PM EST): 2/2 to gastroenteritis Gastroenteritis 10/20/2023 02/01/2025 Assessment & Plan (10/20/2023 1:18 PM EST): Most likely viral. Recommended to be on a clear liquid diet today. Start sucralfate 1g TID Ac meals + ondansetron Advance to soft diet as tolerated Order labs to r/o electrolyte imbalance Candidiasis of perineum 07/29/202301/17 Assessment & Plan (07/29/2023 10:30 AM EST): Use Lotrimin cream BID Counseled regarding tight control of DM, keep area clean and dry Sepsis due to Escherichia coli ([facility]) 02/03/2023 02/01/2025 UTI due to extended-spectrum beta lactamase (ESBL) producing Escherichia coli 02/03/20232024 Gram-negative bacteremia 02/03/2023 Focal pyelonephritis 02/03/2023 025 COVID-19 02/03/2023 02/01/2025 Chronic bronchitis ([facility]) 10/20/2022 02/14/2024 Knee pain 05/19/2017 02/01/2025 Severe obesity ([facility]) 02/11/201204/2025 Diabetic polyneuropathy 03/10/201101/18 Assessment & Plan (11/18/2022 [...] intake and having smaller in fraction meals. Renal abscess 03/10/2011 02/01/2025 Assessment & Plan (03/31/2023 12:01 PM EDT): Last year, needs a FU CT scan to evaluate residual mass CT scan ordered previously, pt will schedule appointment Assessment & Plan (11/18/2022 2:21 PM EST): s/p antibiotics [address] scan to make sure complete resolution Nonproliferative diabetic retinopathy 03/10/2011 02/14/2024 Encounters Date Type Department Care Team Description 07/15/2025 Refill [facility] [address] [place] [address] Audrey Cavlo MD Achilles tendinitis of right lower extremity 07/15/2025 Refill [facility] [address] [place] [phone] Mey Vargas, ZBIGNIEW Achilles tendinitis of right lower extremity 07/15/2025 Patient Outreach [address] [phone] Audrey Calvo MD Transition Of Care (Tcm) (HDF scheduled and SDOH screening completed on 12/26/24 ) 07/12/2025 Orders Only GENERIC EXTERNAL DATA DEPARTMENT Provider, Generic External Data 07/12/2025 Telephone [facility] [address] [place] [phone] Audrey Calvo MD Care Coordination 07/04/2025 Refill [facility] [address] [place] [phone] Audrey Calvo MD Primary osteoarthritis of knee, unspecified laterality 06/11/2025 Refill [facility] [address], [place] [phone] Audrey Calvo MD Achilles tendinitis of right lower extremity 06/04/2025 Refill [facility] [address] [place] [phone] Audrey Calvo MD Primary osteoarthritis of knee, unspecified laterality 05/21/2025 2:00 PM EDT Telemedicine [facility] [address] [place] [phone] Cristopher Lu, PharmD Primary hypertension (Primary Dx) 05/16/2025 11:00 AM EDT Office Visit [facility] [address] [place] [phone] Liya Perez Dental calculus (Primary Dx); Dental plaque 05/14/2025 11:00 AM EDT Office Visit [facility] [address] [place] [address] Teresa Packer, TEMPERATURE REGULATOR Primary osteoarthritis of left knee (Primary Dx); 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 05/14/2025 Travel 05/11/2025 Refill [facility] [address] [place] [address] Teresa Packer, TEMPERATURE REGULATOR Primary osteoarthritis of left knee 05/09/2025 Refill [facility] [address] [place] [address] Audrey Calvo MD Primary osteoarthritis of knee, unspecified laterality 05/07/2025 Refill [facility] [address] [place] [address] Audrey Calvo MD Achilles tendinitis of right lower extremity 05/07/2025 Refill [facility] [address], [place] [phone] Audrey Calvo MD Type 2 diabetes mellitus with hyperglycemia, without long-term current use of insulin ([facility]) 05/01/2025 Refill [facility] [address] [place] [address] Audrey Calvo MD Diabetic polyneuropathy associated with type 2 diabetes mellitus ([facility]) 04/25/2025 4:00 PM EDT Office Visit [facility] [address] [place] [phone] Audrey Calvo MD Dumping syndrome (Primary Dx); Type 2 diabetes mellitus with hyperglycemia, without long-term current use of insulin ([facility]); Primary hypertension 04/25/2025 Travel 04/24/2025 Telephone [facility] [address] [place] [address] Audrey Calvo MD chart prep 04/15/2025 Telephone [facility] [address] [place] [address] Audrey Calvo MD FYI 04/15/2025 Telephone [facility] [address], [place] [phone] Audrey Calvo MD Nurse Triage from Last 3 Months Immunizations Immunization Administration [...] Sign Reading Time Taken Comments Blood Pressure 162/86 05/16/2025 11:14 AM EDT Pulse 67 04/25/2025 3:51 PM EDT Temperature 36.3 C (97.3 F) 04/25/2025 3:51 PM EDT Respiratory Rate 21 04/25/2025 3:51 PM EDT Oxygen Saturation 96% 04/25/2025 3:51 PM EDT Inhaled Oxygen Concentration - - Weight 86.6 kg (191 lb) 04/25/2025 3:51 PM EDT Height 160 cm (5' 3 ) 04/25/2025 3:51 PM EDT Body Mass Index 33.83 04/25/2025 3:51 PM EDT Plan of Treatment Upcoming Encounters Date Type Department Care Team (Late st Contact Info) Description 07/16/2025 11:30 AM EDT Immunization [facility] [address] [place] [phone] 07/30/2025 10:45 AM EST Office Visit [facility] [address] [place] [phone] Audrey Calvo MD [address] [place] [address] 09/10/2025 11:00 AM EST Office Visit [facility] [address], [place] [phone] 09/24/2025 2:00 PM EST Telemedicine [facility] [address], [place] [phone] Cristopher Lu, PharmD [address] [place], [place] [phone] 11/28/2025 1:00 PM EDT Office Visit [facility] [address], [place] [phone] Liya Perez Health Maintenance Due Date Last Done Comments CT Colonography 1955 FIT DNA/Cologuard 1955 FIT 1955 FOBT 1955 Sigmoidoscopy 1955 Hepatitis C Screening 1975 RSV Patients and Patients Aged 60 years or older (1 - Risk 60-74 years 1-dose series) 2017 Zoster Vaccines (3 of 3) 02/17/2024 12/23/2023, 02/2019 Dental Oral Exam 01/25/2025 07/27/2024, , 03/06/2019, Additional history exists Dental Prophylaxis 01/25/2025 07/27/2024, 01/31/2019 COVID-19 Vaccine ( season) 2025 08/02/2022, 03/05/2021, 02/05/2021 Influenza Vaccine (#1) 2025 4, 07/29/2023, 08/02/2022, Additional history exists Diabetes: Hemoglobin A1C 07/26/2025 025, 12/26/2024, 02/14/2024, Additional history exists Dental X-Ray: Bitewings 07/28/2025 07/27/20 24, 09/05/2019, 08/15/2018 Depression Screening 12/26/2025 12/26/2024, 12/27/19 25 SDOH Screening 12/26/2025 12/26/2024 Alcohol/Substance Use Screening 01/10/2026 01/10/2025 Mammogram 01/22/2026 01/22/2025, 12/20, 11/09/2022, Additional history exists Diabetes: Foot Exam 02/01/2026 02/01/2025, 02/01/2025, 02/01/2025, Additional history exists Diabetes: Urine Protein Screening 02/01/2026 02/01/2025, 03/02/2021, 08/08/2020 Eye Exam 03/14/2026 03/14/2025 Tobacco Screening 05/16/2026 05/16/2025 Lipid Panel 07/12/2026 07/12/2025, 01/17, 06/29/2024, Additional history exists Pneumococcal Vaccine: 50+ Years [...] WHOLE BLOOD Routine 07/12/2025 11:50 AM EDT LIPID PANEL, STANDARD Routine 07/12/2025 11:42 AM EDT BASIC METABOLIC PANEL Routine 07/12/2025 11:42 AM EDT HIGH SENSITIVITY TROPONIN I Routine 07/12/2025 11:42 AM EDT APTT Routine 07/12/2025 11:42 AM EDT PROTHROMBIN TIME-INR Routine 07/12/2025 11:42 AM EDT CBC WITH AUTO DIFFERENTIAL Routine 07/12/2025 11:42 AM EDT CTA HEAD STROKE W AND WO CONTRAST Routine 07/12/2025 11:[address] HEAD STROKE WO CONTRAST Routine 07/12/2025 11:37 AM EDT TOPICAL APPLICATION OF FLUORIDE VARNISH Routine 05/16/2025 11:00 AM EDT Dental calculus Dental plaque ORAL HYGIENE INSTRUCTIONS Routine 05/16/2025 11:00 AM EDT Dental calculus Dental plaque UR PERIODONTAL SCALING AND ROOT PLANING - 4 OR MORE TEETH PER QUADRANT Routine 05/16/2025 11:00 AM EDT Dental calculus Dental plaque LR PERIODONTAL SCALING AND ROOT PLANING - 4 OR MORE TEETH PER QUADRANT Routine 05/16/2025 11:00 AM EDT Dental calculus Dental plaque POCT CHIQUITA-14 URINE DRUG SCREEN Routine 05/14/2025 11:32 AM EDT Primary osteoarthritis of left knee 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 POCT GLYCATED HEMOGLOBIN, TOTAL Routine 04/25/2025 3:53 PM EDT Type 2 diabetes mellitus with hyperglycemia, without long-term current use of insulin ([facility]) POCT GLUCOSE Routine 04/25/2025 3:52 PM EDT Type 2 diabetes mellitus with hyperglycemia, without long-term current use of insulin (CMS/HCC) ALBUMIN, RANDOM URINE W/CREATININE Routine 02/01/2025 8:20 AM EDT BI MAMMOGRAM SCREENING TOMOSYNTHESIS BILATERAL Routine 01/22/2025 9:00 AM EDT PROPHYLAXIS - ADULT Routine 07/27/2024 1 0:00 AM EST Dental plaque Dental calculus INTRAORAL - COMPLETE SERIES OF RADIOGRAPHIC IMAGES Routine 07/27/2024 10:00 AM EST PERIODIC ORAL EVALUATION - ESTABLISHED PATIENT Routine 07/27/2024 10:00 AM EST HM COLONOSCOPY Routine 08/28/2019 8:20 AM EST from Last 3 Months or Most Recently Relevant to Health Maintenance Results * MR Brain w/o Contrast (07/13/2025 1:35 PM EDT) Anatomical Region Laterality Modality Brain Magnetic Resonan ce 07/13/2025 1:3 5 PM EDT Narrative 07/13/2025 1:36 PM EDT [place] [address] Magnetic Resonance Report Signed Patient: Kalyani Ford I MR# : [id number] : 1955 Acct:[id number] Age/Sex: 70 / F ADM Date: 07/12/25 Loc: .ICU 261-[address]: Ramírez Ngo MD Ordering Physician: Ramírez Ngo MD Date of Service: 07/13/25 Procedure(s): MR head/brain wo con Accession Number(s): [id number] cc: Ramírez Ngo MD; Audrey Calvo MD [...] Fuller MD in OV> 07/13/25 1336 DD/ 34 TD/TT: 07/13/251334 Stamp Classifier: Procedure Note Donotuseinterpreter, Image - 07/13/2025 [place] [address] Magnetic Resonance Report Signed Patient: Kalyani Ford IMR# : [id number] : 1955cct:[id number] Age/Sex: 70 / FADM Date: 07/12/25 Loc: HO.ICU 261-[address]: Ramírez Ngo MD Ordering Physician: Ramírez Ngo MD Date of Service: 07/13/25 Procedure(s): MR head/brain wo con Accession Number(s): [id number] cc: Ramírez Ngo MD; Audrey Calvo MD [...] Fuller MD in OV> 07/13/25 1336 DD/ 34 TD/TT: 07/13/251334 Stamp Classifier: [facility] External Provider IMG MRI PROCEDURES Edited Result - Final * PROTHROMBIN TIME WHOLE BLD POC (07/12/2025 11:54 AM EDT) Protime 11.7 11.1 - 13.5 sec [facility] 07/12/2025 11:5 4 AM EDT 07/12/2025 12:00 PM EDT Generic External Data Provider LAB BLOOD ORDERAB LES Final Result [facility] [address] [place] [phone] * ~PT, ~INR - ANTI COAG CLINIC (07/12/2025 11:54 AM EDT) Prothrombin Time INR 1.0 0.9 - 1.1 [facility] Comment:METER #: [id number] TERNATIONAL NORMALIZED RATIO (INR) REFERENCE RANGES Reference [...] ORDERAB LES Final Result Performing Organization Address [facility] Co de Phone Number [facility] [address] [place] [phone] * (ABNORMAL) Glucose, Whole Blood (07/12/2025 11:50 AM EDT) [facility] Glucose, Whole Blood 207(H) 60 - 115 mg/dL [facility] Comment:METER #: [id number] 07/12/2025 11:5 0 AM EDT 07/12/2025 12:01 PM EDT Generic External Data Provider LAB BLOOD ORDERAB LES Final Result Performing Organization Address [facility] Phone Number [facility] [address] [place] [phone] * High Sensitivity Troponin I (07/12/2025 11:42 AM EDT) [facility] TROPONIN I HIGH SENSITIVITY <2.7 <3.5 - 17.0 ng/L [facility] Comment:The Goss high sens itivity Troponin-I results should beused in conjunction with other diagnostic information suchas ECG, clinical observations and information, and patientsymptoms to aid in the diagnosis of [place]. 07/12/2025 11:4 2 AM EDT 07/12/2025 11:44 AM EDT Generic External Data Provider LAB BLOOD ORDERAB LES Final Result Performing Organization Address [facility] de Phone Number [facility] [address] [place] [phone] * (ABNORMAL) CBC auto differential (07/12/2025 11:42 AM EDT) White Blood Count 5.0 4.8 - 10.8 X10*3/uL [facility] Red Blood Count 5.23 4.20 - 5.50 X10*6/uL [facility] Hemoglobin 14.1 12.0 - 16.0 g/dl [facility] Hematocrit 42.9 37.0 - 47.0 % [facility] Mean Corpuscular Volume 82.0 80.0 - 98.0 fL [facility] Mean Corpuscular Hemoglobin 27.0 27.0 - 33.0 pg [facility] Mean Corpuscular HGB Conc 32.9 31.0 - 35.0 g/dl [facility] Red Cell Distribution Width 13.0 11.0 - 16.0 % [facility] Platelet Count 262 160 - 400 X10*3/uL [facility] Mean Platelet Volume 10.3 9.4 - 12.3 fL [facility] Neutrophils Percent Auto 45.0 45 - 73 % [facility] Imm Gran Pct Auto 0.2 0.0 - 0.4 % [facility] Lymphocytes Percent Auto 43.5(H) 20 - 40 % [facility] Monocytes Percent Auto 7.3 2 - 11 % [facility] Eosinophils Percent Auto 3.0 0 - 4 % [facility] Basophils Percent Auto 1.0 0 - 2 % [facility] NRBC Pct Auto 0.0 0.0 - 0.2 /100WBC [facility] Neutrophils Absolute Auto 2.2 2.0 - 8.3 x10*3/uL [facility] Imm Gran Abs Auto 0.01 0.00 - 0.03 X10*3/uL [facility] Lymphocytes Absolute Auto 2.2 1.2 - 4.9 X10*3/uL [facility] Monocytes Absolute Auto 0.4 0.1 - 1.2 X10*3/uL [facility] Eosinophils Absolute Auto 0.2 0.0 - 0.4 X10*3/uL [facility] Basophils Absolute Auto 0.1 0.0 - 0.2 X10*3/uL [facility] NRBC Abs Auto 0.000 0.0 - 0.012 X10*3/uL [facility] 07/12/2025 11:4 2 AM EDT 07/12/2025 11:44 AM EDT Generic External Data Provider LAB BLOOD ORDERAB LES Final Result Performing Organization Address [facility]/ZIP Co de Phone Number [facility] [address] [place] [phone] * (ABNORMAL) Partial Thromboplastin Time, Activated (APTT) (07/12/2025 11:42 AM EDT) Partial Thromboplastin Time 25.3(L) 26.7 - 34.1 SEC [facility] 07/12/2025 11:4 2 AM EDT 07/12/2025 11:44 AM EDT Generic External Data Provider LAB BLOOD ORDERAB LES Final Result Performing Organization Address [facility]/ZIP Co de Phone Number [facility] [address] [place] [phone] * (ABNORMAL) Prothrombin Time-INR (07/12/2025 11:42 AM EDT) Prothrombin Time 10.3(L) 10.9 - 12.4 SEC [facility] INTERNATIONAL NORM RATIO 0.9 0.9 - 1.1 [facility] Comment:INTERNATIONAL NORMAL IZED RATIO (INR) [...] ORDERAB LES Final Result Performing Organization Address City/[facility]/ZIP Co de Phone Number [facility] [address] [place] [phone] * (ABNORMAL) Lipid Panel, Standard (07/12/2025 11:42 AM EDT) Triglycerides 138 <150 mg/dL [facility] Comment:Desirable Triglyceri de: less than 150 mg/dLBorderline High Triglyceride 150-199 mg/dLHigh Triglyceride: 200-499 mg/dLVery High Triglyceride: greater than or equal to 5OO mg/dL Cholesterol 213(H) <200 mg/dL [facility] Comment:Desirable Cholestero l: less than 200 mg/dLBorderline High Cholesterol: 200-239 mg/dLHigh Cholesterol: greater than 239 mg/dL LDL Cholesterol Calculated 132(H) <100 mg/dL [facility] Comment:Desirable LDL: less than 100 mg/dLNear Optimal/Above Optimal LDL: 110- 129 mg/dLBorderline High LDL: 130-159 mg/dLHigh LDL: 160-189 mg/dLVery High LDL: greater than or equal to 190 mg/dL HDL Cholesterol 54 >40 mg/dL [facility] Comment:Desirable HDL: great er than 40 mg/dL Note: This HDL assay may give artificially low results in patients with liver disease. 07/12/2025 11:4 2 AM EDT 07/12/2025 11:44 AM EDT Generic External Data Provider LAB BLOOD ORDERAB LES Final Result Performing Organization Address City/[facility]/ZIP Co de Phone Number [facility] [address] [place] [phone] * (ABNORMAL) Basic Metabolic Panel (07/12/2025 11:42 AM EDT) Sodium 138 135 - 145 mmol/L [facility] Potassium 4.3 3.3 - 5.1 mmol/L [facility] Comment:Mild Hemolysis.Inter pret result with caution Chloride 103 96 - 108 mmol/L [facility] Carbon Dioxide 27 22 - 29 mmol/L [facility] Anion Gap 12 12 - 20 [facility] Urea Nitrogen (BUN) 14 9 - 16 mg/dL [facility] Creatinine, Serum 0.81 0.5 - 1.4 mg/dL [facility] Creatinine Clr Calc Pharmacy 72.7 [facility] Comment:Provided height and weight: 167.64 cm,84.368 kg.eGFR (calculated from the MDRD study equation) and eCrCl(calculated from the Cockcroft-Gault equation) are based ondifferent parameters and may not yield comparable results.If eCrCl result is absurd, please check patient'sheight/weight. Estimated Glomerular Filt Rate >60 [facility] Comment:Chronic Kidney Disea se: Estimated GFR < 60 mL/min/1.84f7Wywqhs Kidney Disease: Estimated GFR < 15 mL/min/1.73m2 Glucose 224(H) 60 - 115 mg/dL [facility] Calcium 9.3 8.4 - 10.2 mg/dL [facility] 07/12/2025 11:4 2 AM EDT 07/12/2025 11:44 AM EDT us Generic External Data Provider LAB BLOOD ORDERAB LES Final Result [facility] [address] [place] [phone] * CTA Head Stroke w/ and w/o Contrast (07/12/2025 11:40 AM EDT) Anatomical Region Laterality Modality Computed Tomogra phy 07/12/2025 11:4 0 AM EDT Narrative 07/12/2025 12:02 PM EDT [address] [address] [address] Scan Report Signed Patient: Kalyani Ford I MR# : [id number] : 1955 Acct:[id number] Age/Sex: 70 / F ADM Date: 07/12/25 Loc: HO.ED Attending Dr: Ordering Physician: Prateek De Leon MD Date of Service: 07/12/25 Procedure(s): CT angio head neck STROKE Accession Number(s): [id number] cc: Audrey Calvo MD; Prateek De Leon MD Report Number: [id number]: Total DLP = 662.00 mGy-cm Reason for [...] cerebellar arteries are patent. No gross abnormality. senior rd engineer: Normal patency. No focal stenosis. No abrupt [...] 07/12/25 1159 DD/ 1140 TD/TT: 07/12/25 1154 Stamp Classifier: Procedure Note Donotuseinterpreter, Image - 07/12/[address] [address] [address] Scan Report Signed Patient: Kalyani Ford IMR# : [id number] : 1955cct:[id number] Age/Sex: 70 / FADM Date: 07/12/25 Loc: HO.ED Attending Dr: Ordering Physician: Prateek De Leon MD Date of Service: 07/12/25 Procedure(s): CT angio head neck STROKE Accession Number(s): [id number] cc: Audrey Calvo MD; Prateek De Leon MD Report Number: [id number]: Total DLP = 662.00 mGy-cm Reason for [...] cerebellar arteries are patent. No gross abnormality. senior rd engineer: Normal patency. No focal stenosis. No abrupt [...] 07/12/25 1159 DD/ 1140 TD/TT: 07/12/25 1154 Stamp Classifier: [facility] External Provider IMG CT PROCEDURES Final Result * CT Head Stroke w/o Contrast (07/12/2025 11:37 AM EDT) Anatomical Region Laterality Modality Computed Tomogra phy 07/12/2025 11:3 7 AM EDT Narrative 07/12/2025 12:02 PM EDT [address] [address] [address] Scan Report Signed Patient: Kalyani Ford I MR# : [id number] : 1955 Acct:[id number] Age/Sex: 70 / F ADM Date: 07/12/25 Loc: HO.ED Attending Dr: Ordering Physician: Prateek De Leon MD Date of Service: 07/12/25 Procedure(s): CT head for STROKE Accession Number(s): [id number] cc: Audrey Calvo MD; Prateek De Leon MD Report Number: [id number]: Total DLP = 658.00 mGy-cm Reason for [...] cerebellar arteries are patent. No gross abnormality. senior rd engineer: Normal patency. No focal stenosis. No abrupt [...] 07/12/25 1159 DD/ 1137 TD/TT: 07/12/25 1142 Stamp Classifier: Procedure Note Donotuseinterpreter, Image - 07/12/[address] [address] [address] Scan Report Signed Patient: Kalyani Ford IMR# : [id number] : 1955cct:[id number] Age/Sex: 70 / FADM Date: 07/12/25 Loc: HO.ED Attending Dr: Ordering Physician: Prateek De Leon MD Date of Service: 07/12/25 Procedure(s): CT head for STROKE Accession Number(s): [id number] cc: Audrey Calvo MD; Prateek De Leon MD Report Number: [id number]: Total DLP = 658.00 mGy-cm Reason for [...] cerebellar arteries are patent. No gross abnormality. senior rd engineer: Normal patency. No focal stenosis. No abrupt [...] 07/12/25 1159 DD/ 1137 TD/TT: 07/12/25 1142 Stamp Classifier: [facility] External Provider IMG CT PROCEDURES Final Result * (ABNORMAL) POCT CHIQUITA-14 Urine Drug Screen (05/14/2025 11:32 AM EDT) THC Negative Negative Cocaine Screen, Urine Negative Negative Opiate Screen, Urine Negative Negative Methamphetamine Screen Urine Negative Negative Amphetamine Screen, Urine Negative Negative Benzodiazepines Screen, Urine Negative Negative Barbiturate Screen, Urine Negative Negative Methadone Screen, Urine Negative Negative Buprenophine Screen, Urine Negative Negative TCA, Urine Negative Negative MDMA Urine Negative Negative ng/mL Oxycodone Screen, Urine Positive(A) Negative Phencyclidine (PCP), Urine Negative Negative Propoxyphene, Urine Negative Negative Fentanyl, Urine Negative Negative Urine Urine specimen obtained by clean catch procedure / Unknown 05/14/2025 11:32 AM EDT Narrative Lola Garcia RN - 05/14/2025 11:32 AM EDT .UTOX cup Lot#[id number] Exp. 06/25/26 Internal Pass Control Teresa Packer TEMPERATURE REGULATOR POINT OF CARE TEST ENTER/EDIT ORDERABLES Final Result * (ABNORMAL) POCT HGB A1C (04/25/2025 3:53 PM EDT) Hemoglobin A1C 7.3(A) 4.0 - 5.7 % QC Media Lot # [id number] Lot# Expiration Date Blood 04/25/2025 3:53 PM EDT Audrey Calvo MD POINT OF CARE TEST ENTER /EDIT ORDERABLES Final Result * POCT Glucose (04/25/2025 3:52 PM EDT) Glucose Blood, POC 200 60 - 200 mg/dL QC Media Lot # [id number] Lot# Expiration Date Blood Capillary blood specimen / Unknown 04/25/2025 3:52 PM EDT Audrey Calvo MD POINT OF CARE TEST ENTER /EDIT ORDERABLES Final Result * (ABNORMAL) Albumin, Random Urine W/Creatinine (02/01/2025 8:20 AM EDT) Creatinine, Urine 227.49 mg/dL [facility] Microalbumin Urine 188.0 mg/L H [facility] Microalbum Creatinine Ratio Ur 82.6(H) <30 ug/mg cr [facility] Comment:Albumin/Creatinine R atio Reference Ranges: Normal: < 30 ug/mg creatinine Microalbuminuria: 30 - 300 ug/mg creatinineClinical Albuminuria: > 300 ug/mg creatinine 02/01/2025 8:20 AM EDT 02/01/2025 10:57 AM EDT Audrey Calvo MD LAB URINE ORDERABLES Fin al Result [facility] [address] [place] [phone] * BI Mammogram Screening Tomosynthesis Bilateral (01/22/2025 9:00 AM EDT) Anatomical Region Laterality Modality Breast Bilateral Mammography 01/22/2025 9:00 AM EDT Narrative 01/27/2025 9:44 PM EDT [address] [place] [address] Mammography Report Signed Patient: Kalyani Rogers I MR#: [id number] : 1955 Acct:[id number] Age/Sex: 69 / F ADM Date: 01/22/25 Loc: HO.MAMMO Attending Dr: Audrey Calvo MD Ordering Physician: Audrey Calvo MD Results: 1Ne gative Date of Service: 01/22/25 Follow Up: 1 Year From Orig ina Mammogram Procedure(s): MM tomosynthesis screening BI Accession Number(s): [id number] cc: Audrey Calvo MD; Name,Srinivas COOK EXAMINATION: [...] OV> 01/27/252140 DD/ 09 TD/TT: 01/22/25 09 Stamp Classifier: Procedure Note Donotuseinterpreter, Image - 01/27/[address] [place] [address] Mammography Report Signed Patient: Kalyani Rogers IMR#: [id number] : 1955cct:[id number] Age/Sex: 69 / FADM Date: 01/22/25 Loc: HO.MAMMO Attending Dr: Audrey Calvo MD Ordering Physician: Audrey Calvo MDResults: 1Ne gative Date of Service: 01/22/25Follow Up: 1 Year From Orig inal Mammogram Procedure(s): MM tomosynthesis screening BI Accession Number(s): [id number] cc: Audrey Calvo MD; Name,Srinivas COOK EXAMINATION: [...] Ita Copeland DO in OV> 01/27/252140 DD/ 9 TD/TT: 01/22/25 09 Stamp Classifier: us Audrey Calvo MD IMG BI PROCEDURES Final Result * Hm Colonoscopy (08/28/2019 8:20 AM EST) us Historical Provider HEALTH MAINTENANCE Final Result from Last 3 Months or Most Recently Relevant to Health Maintenance Insurance [facility] DETENTION OPTIONS (O D-SNP) JOSE ELIAS STEARNS [id number] [facility] Care Teams Cement Finisher Relationship Specialty Start Date End Date Audrey Calvo MD [address] [place] [phone] PCP - General Family Medicine 05/09/17
--- OUTSIDE RECORDS SUMMARY | 2025-07-15 12:53 | XMS_ITS | Encounter Summary ---
Author Organization [employer] Address [address] [place] [address] 7 [place] [address] Care Team Providers Care Communications Editor Name Role Phone Audrey Calvo MD Primary Care Provider + Reason for Visit * Reason Onset Date Comments FYI 04/15/2025 Encounter Details Date Type Department Care Team ([facility] st Contact Info) Description 04/15/2025 Telephone [facility] MEDICINE [address] [place] [address] Audrey Calvo MD [address] [place] [address] Social History Tobacco Use Types Packs/Day Years [...] the past 12 months, has t he [employer], gas, oil or water company threatened to [...] encounter Miscellaneous Notes * Telephone Encounter - Susu Miles RN - 04/15/2025 2:12 PM EDT TC placed to pt. Pt. Repots she does not typically check her own BP at home however has had no symptoms such as dizziness, blurred vision, headaches or chest discomfort. Pt. Has 2 BP rxs in medbox and confirms they are taken daily. Pt. Will plan to f/up with PCP at appt. 04/25/25. * Telephone Encounter - Tom Bangura - 04/15/2025 11:48 AM EDT Tc from Dr. Hess with [employer] wanted to report that she visited pt today and she had a slightly elevated B/P Sittin/95 Rate: 79 Standin/97 Rate: 81 documented in this encounter Plan of Treatment Upcoming Encounters Date Type Department Care Team (Late st Contact Info) Description 07/16/2025 11:30 AM EDT Immunization [facility] MEDICINE [address] [place] [address] 07/30/2025 10:45 AM EST Office Visit [address] [address] Audrey Calvo MD [address] [place] [address] 09/10/2025 11:00 AM EST Office Visit [address] [address] 09/24/2025 2:00 PM EST Telemedicine [address] [address] Cristopher Lu, PharmD [address] [place] [phone] 11/28/2025 1:00 PM EDT Office Visit [facility] ADULT DENTAL [address] [place] [address] Liya Perez documented as of this encounter Visit Diagnoses Not on filedocumented in this encounter Additional Health Concerns Assessment Noted Time PHQ-9 Depression Total Score: 0 12/27/19 25 1:57 PM EDT documented as of this encounter Care Teams Communications Editor Relationship Specialty Start Date End Date Audrey Calvo MD [address] [place] [phone] PCP - General Family Medicine 05/09/17 documented as of this encounter
--- OUTSIDE RECORDS SUMMARY | 2025-07-15 12:53 | XMS_ITS | Encounter Summary ---
Author Organization [employer] Address [address] [place] [address] [address] [place] [address] Care Team Providers Care Monument Mason Name Role Phone Audrey Calvo MD Primary Care Provider + Reason for Visit * Reason Comments Med Refill Encounter Details Date Type Department Care Team ([facility] st Contact Info) Description 05/01/2025 Refill [facility] MEDICINE [address] [place] [address] Audrey Calvo MD [address] [place] [address] Diabetic polyneuropathy associated with type 2 diabetes [...] Info) Description 07/16/2025 11:30 AM EDT Immunization [address] [address] 07/30/2025 10:45 AM EST Office Visit [address] [address] Audrey Calvo MD [address] [place] [address] 09/10/2025 11:00 AM EST Office Visit [address] [address] 09/24/2025 2:00 PM EST Telemedicine [address] [address] Cristopher Lu, PharmD [address] [place] [phone] 11/28/2025 1:00 PM EDT Office Visit [facility] ADULT DENTAL [address] [place] [address] Liya Perez documented as of this encounter Visit Diagnoses Diagnosis Diabetic polyneuropathy associated with type 2 diabetes mellitus (HCC) documented in this encounter Additional Health Concerns Assessment Noted Time PHQ-9 Depression Total Score: 0 12/27/19 25 1:57 PM EDT documented as of this encounter Care Teams Monument Mason Relationship Specialty Start Date End Date Audrey Calvo MD [address] [place] [address] PCP - General Family Medicine 05/09/17 documented as of this encounter
== END 2025-07-15 11:13 | disposition home or self-care (01) ==
LOC: HO.HUSH 10:32
PROVIDERS: PCP Internal Medicine Geriatric Medicine; Visit Provider Nurse Practitioner Family
DX: N39.0 Urinary tract infection, site not specified (principal); R30.0 Dysuria; R39.89 Other symptoms and signs involving the genitourinary system; Z13.9 Encounter for screening, unspecified
CPT/HCPCS: 99213; G2211

== ENCOUNTER 2025-07-15 10:31 | Outpatient (REF) | payer OTHER, SELFPAY | END 2025-07-15 10:32 | disposition home or self-care (01) | LOC: HO.LAB 10:31 | PROVIDERS: PCP Internal Medicine Geriatric Medicine; Visit Provider Nurse Practitioner Family | DX: N39.0 Urinary tract infection, site not specified (principal); R39.89 Other symptoms and signs involving the genitourinary system; R30.0 Dysuria; Z13.89 Encounter for screening for other disorder; Z79.82 Long term (current) use of aspirin; Z79.899 Other long term (current) drug therapy | CPT/HCPCS: 81003; 87086; 87088; 87186; 99212 ==

== ENCOUNTER 2025-07-31 14:04 | Outpatient (REF) | payer OTHER, SELFPAY ==
--- OUTSIDE RECORDS SUMMARY | 2025-07-30 10:45 | XMS_ITS | Encounter Summary ---
Author Organization [employer] Address [address] [place] [address] Care Team Providers Care Supervisor Type Photography Name Role Phone Audrey Calvo MD Primary Care Provider + Reason for Referral * Medications - Closed Specialty Diagnoses / Procedures Referred By Contac t Referred To Contact Diagnoses UTI due to extended-spectrum beta lactamase (ESBL) producing Escherichia coli Audrey Calvo MD [address] [place] [phone] Phone: tel: fax: Referral ID Status Reason Start Date Expiration Date Visits Re quested Visits Authorized [id number] Closed 1 1 Reason for Visit * Reason Comments Follow-up Encounter Details Date Type Department Care Team (Latest Contact Info) Description 07/30/2025 10:45 AM EST Office Visit [facility] [address] [place] [address] [phone] Audrey Calvo MD [address] [place] [address] [phone] Cerebrovascular accident aborted by administration of thrombolytic agent (CMS/HCC) (HCC) (Primary Dx); Type 2 diabetes mellitus with hyperglycemia, without long-term current use of insulin (HCC); UTI due to extended-spectrum beta lactamase (ESBL) producing Escherichia coli; Pure hypercholesterolemia; Exercise counseling; Class 1 obesity due to excess calories with serious comorbidity and body mass index (BMI) of 33.0 to 33.9 in adult; Dietary counseling Social History Tobacco Use Types Packs/Day Years [...] Date Recorded Patient Health Questionnaire-9 Score 3 07/30/2025 Patient Health Questionnaire-9 Score 3 07/30/2025 Last PHQ-9: Questionnaire Data Not on file 1 09/29/2024 Housing Stability Answer Date Recorded What is [...] Answer Date Recorded Patient Health Questionnaire-2 Score 1 07/30/2025 Internet Access Answer Date Recorded Internet Access [...] Sign Reading Time Taken Comments Blood Pressure 136/86 07/30/2025 10:47 AM EST Pulse 75 07/30/2025 10:47 AM EST Temperature 36.6 C (97.9 F) 07/30/2025 10:47 AM EST Respiratory Rate 20 07/30/2025 10:47 AM EST Oxygen Saturation 98% 07/30/2025 10:47 AM EST Inhaled Oxygen Concentration - - Weight 85.5 kg (188 lb 6.4 oz) 07/30/2025 10:47 AM EST Height 160 cm (5' 3 ) 07/30/2025 10:47 AM EST Body Mass Index 33.37 07/30/2025 10:47 AM EST documented in this encounter Functional Status * Over the past 2 weeks, how often have you been bothered by any of the following problems? Question Answer Date of Assessment Author Patient Health Questionnaire-2 Score 1 07/30/2025 10:48 AM EST Claudia Beckett MA * Little interest or pleasure in doing things Answer Date of Assessment Author Several days 07/30/2025 10:48 AM EST Claudia Gallo MA * Feeling down, depressed, or hopeless Answer Date of Assessment Author Not at all 07/30/2025 10:48 AM EST Claudia Gallo MA * Trouble falling or staying asleep, or sleeping too much Answer Date of Assessment Author Several days 07/30/2025 10:48 AM Claudia Min MA * Feeling tired or having little energy Answer Date of Assessment Author Several days 07/30/2025 10:48 AM EST Claudia Gallo MA * Poor appetite or overeating Answer Date of Assessment Author Not at all 07/30/2025 10:48 AM EST Claudia Gallo MA * Feeling bad about yourself - or that you are a failure or have let yourself or your family down Answer Date of Assessment Author Not at all 07/30/2025 10:48 AM Claudia Min MA * Trouble concentrating on things, such as reading the newspaper or watching television Answer Date of Assessment Author Not at all 07/30/2025 10:48 AM Claudia Min MA * Moving or speaking so slowly that other people could have noticed? Or the opposite - being so fidgety or restless that you have been moving around a lot more than usual. Answer Date of Assessment Author Not at all 07/30/2025 10:48 AM Claudia Min MA * Thoughts that you would be better off or hurting yourself in some way Answer Date of Assessment Author Not at all 07/30/2025 10:48 AM Claudia Min MA * Patient Health Questionnaire-9 Score Answer Date of Assessment Author 3 07/30/2025 10:48 AM Claudia Min MA * How difficult have these problems made it for you to do your work, take care of things at home, or get along with other people? Answer Date of Assessment Author Not difficult at all 07/30/2025 10:48 AM Claudia Bond MA * Over the last 2 weeks, how often have you been bothered by any of the following problems? Question Answer Date of Assessment Author Feeling nervous, anxious, or on edge 0 07/30/2025 10:48 AM Claudia Bravo MA Not being able to stop or control worrying 0 07/30/2025 10:48 AM Claudia Bravo MA Worrying too much about different things 0 07/30/2025 10:48 AM Claudia Bravo MA Trouble relaxing 0 07/30/2025 10:48 AM Claudia Bravo MA Being so restless that it is hard to sit still 0 07/30/2025 10:48 AM Claudia Bravo MA Becoming easily annoyed or irritable 0 07/30/2025 10:48 AM Claudia Bravo MA Feeling afraid as if something awful might happen 0 07/30/2025 10:48 AM Claudia De Jesus MA LG-7 Total Score 0 07/30/2025 10:48 AM Claudia Bravo MA documented as of this encounter Plan of Treatment Upcoming Encounters Date Type Department Care Team (Late st Contact Info) Description 09/10/2025 11:00 AM EST Office Visit [facility] [address] [place] [phone] 09/24/2025 2:00 PM EST Telemedicine [facility] [address] [place] [phone] Cristopher Lu, Kelli [address] [place] [phone] 10/03/2025 11:45 AM EST Office Visit [facility] [address] [place] [address] [phone] Audrey Calvo MD [address] [place], [place] [phone] 11/28/2025 1:00 PM EDT Office Visit [facility] [address] [place] [address] [phone] Liya Perez Pending Results Name Type Priority Associated Diagnoses Date /Time Lipid Panel with Reflex to Direct LDL Lab Routine Cerebrovascular accident aborted by administration of thrombolytic agent (CMS/HCC) (HCC) Pure hypercholesterolemia 07/31/2025 2:11 PM EST Scheduled Orders Name Type Priority Associated Diagnoses Orde r Schedule Hepatitis C Antibody with Reflex to HCV, RNA, Quantitative, Real-Time PCR Lab Routine Type 2 diabetes mellitus with hyperglycemia, without long-term current use of insulin (HCC) Expected: 07/30/2025 (Approximate), Expires: 07/30/2026 documented as of this encounter Procedures Procedure Name Priority Date/Time Associated Diagnosis Comments LIPID PANEL WITH REFLEX TO DIRECT LDL Routine 07/31/2025 2:11 PM EST Cerebrovascular accident aborted by administration of thrombolytic agent (CMS/HCC) (HCC) Pure hypercholesterolemia POCT URINALYSIS DIPSTICK Routine 07/30/2025 12:01 PM EST UTI due to extended-spectrum beta lactamase (ESBL) producing Escherichia coli POCT GLYCATED HEMOGLOBIN, TOTAL Routine 07/30/2025 10:49 AM EST Type 2 diabetes mellitus with hyperglycemia, without long-term current use of insulin (HCC) POCT GLUCOSE Routine 07/30/2025 10:49 AM EST Type 2 diabetes mellitus with hyperglycemia, without long-term current use of insulin ([facility]) documented in this encounter Results * (ABNORMAL) POCT Urinalysis (07/30/2025 12:01 PM EST) Color, UA Yellow Clarity, UA Clear Glucose, UA Negative Bilirubin, UA Negative Ketones, UA Negative Spec Grav, UA 1.015 Blood, UA Positive(A) Negative, None Detected Comment:trace-lysed pH, UA 7.5 Protein, UA Trace Urobilinogen, UA 1.0 Leukocytes, UA Many(A) Negative, Rare, Trace Comment:large Nitrite, UA Positive(A) Negative, None Detected Appearance, UA clear QC Media Lot # [id number] Lot# Expiration Date Urine (Urine, Random) 07/30/2025 12:01 PM EST Result [facility] Audrey Calvo MD POINT OF CARE TEST ENTER /EDIT ORDERABLES Final Result * POCT Glucose (07/30/2025 10:49 AM EST) Glucose Blood, POC 121 60 - 200 mg/dL Blood Capillary blood specimen / Unknown 07/30/2025 10:49 AM EST Result [facility] Audrey Calvo MD POINT OF CARE TEST ENTER /EDIT ORDERABLES Final Result * (ABNORMAL) POCT Hgb A1c (07/30/2025 10:49 AM EST) Hemoglobin A1C 7.8(A) 4.0 - 5.7 % Blood 07/30/2025 10:4 9 AM EST Audrey Calvo MD POINT OF CARE TEST ENTER /EDIT ORDERABLES Final Result documented in this encounter Visit Diagnoses Diagnosis Cerebrovascular accident aborted by administration of thrombolytic agent (CMS/HCC) (HCC)- Primary Type 2 diabetes mellitus with hyperglycemia, without long-term current use of insulin (HCC) UTI due to extended-spectrum beta lactamase (ESBL) producing Escherichia coli Pure hypercholesterolemia Exercise counseling Class 1 obesity due to excess calories with serious comorbidity and body mass index (BMI) of 33.0 to 33.9 in adult Dietary counseling Dietary surveillance and counseling documented in this encounter Additional Health Concerns Assessment Noted Time PHQ-9 Depression Total Score: 3 07/30/20 25 10:48 AM EST documented as of this encounter Care Teams Supervisor Type Photography Relationship Specialty Start Date End Date Audrey Calvo MD [address] [place] [phone] PCP - General Family Medicine 05/09/17 [facility] 07/16/25 documented as of this encounter
[2025-07-31 16:19] LABS: Appearance Urine Clear; Glucose Urine UA >=1000 mg/dL (Negative); PH 5.5 (5.0-9.0); Specific Gravity - Urine >= 1.030 (1.005-1.025); UMIC TRIGGER UACC YES
[2025-07-31 16:26] LABS: UACC Culture Trigger YES
[2025-07-31 16:36] LABS: Cholesterol 194 mg/dL (<200); HDL Cholesterol 56 mg/dL (>40); Triglycerides 141 mg/dL (<150)
--- OUTSIDE RECORDS SUMMARY | 2025-07-31 17:20 | XMS_ITS | Encounter Summary ---
Author Organization [employer] Address [address] [place] [address] 7 [place] [address] Care Team Providers Care Post Doctoral Researcher Name Role Phone Audrey Calvo MD Primary Care Provider + Encounter Details Date Type Department Care Team (Late st Contact Info) Description 09/27/2022 Orders Only [facility] & PEDS [address] [place] [address] Emi Gill LPN Social History Tobacco Use [...] Department Care Team (Late Contact Info) Description 09/10/2025 11:00 AM EST Office Visit [facility] [address] [place] [phone] 09/24/2025 2:00 PM EST Telemedicine [address] [address] Cristopher Lu, PharmD [address] [place] [phone] 10/03/2025 11:45 AM EST Office Visit [address] [phone] Audrey Calvo MD [address] [place] [address] 11/28/2025 1:00 PM EDT Office Visit [facility] ADULT DENTAL [address] [place], [place] [phone] Liya Perez documented as of this encounter Visit Diagnoses Not on filedocumented in this encounter Care Teams Post Doctoral Researcher Relationship Specialty Start Date End Date Audrey Calvo MD [address] [place] [address] PCP - General Family Medicine 05/09/17 [facility] 07/16/25 documented as of this encounter
--- OUTSIDE RECORDS SUMMARY | 2025-07-31 17:20 | XMS_ITS | Encounter Summary ---
Author Organization [employer] Address [address] [facility] [address] [place] [address] Care Team Providers Care Senior Project Leader/Team Lead Name Role Phone Audrey Calvo MD Primary Care Provider + Encounter Details Date Type Department Care Team ([facility] Contact Info) Description 07/31/2025 Orders Only [facility] PEDS [address] [place], [place] [phone] Teresa Packer, LENCHO [address] [place] [address] Social History Tobacco Use Types Packs/Day Years [...] Description 09/10/2025 11:00 AM EST Office Visit [facility] [address] [place] [phone] 09/24/2025 2:00 PM EST Telemedicine [facility] [address] [place] [address] [phone] Cristopher Lu, PharmD [address] [place] [phone] 10/03/2025 11:45 AM EST Office Visit [facility] [address] [place] [address] [phone] Audrey Calvo MD [address] [place] [phone] 11/28/2025 1:00 PM EDT Office Visit [facility] ADULT DENTAL [address] [place] [address] [phone] Liya Perez documented as of this encounter Goals Goal Patient Goal Type Associated Problems Recent Progress Patient-Stated? Author Help patients manage their type 2 diabetes Care Plan Help patients manage their type 2 diabetes No Tom Bangura Weekly blood pressure task Care Plan Weekly blood pressure task No Tom Bangura Help patients manage their type 2 diabetes Care Plan Help patients manage their type 2 diabetes No Tom Bangura Patient has diabetic eye disease Care Plan Patient has diabetic eye disease No Tom Bangura Help patients manage their type 2 diabetes Care Plan Help patients manage their type 2 diabetes No Tom Bangura Patient has chronic kidney disease Care Plan Patient has chronic kidney disease No Tom Bangura Help patients manage their type 2 diabetes Care Plan Help patients manage their type 2 diabetes No Tom Bangura Patient has diabetic neuropathy Care Plan Patient has diabetic neuropathy No Tom Bangura Weekly blood pressure task Care Plan Weekly blood pressure task No Tom Bangura Weekly blood pressure task Care Plan Weekly blood pressure task No Tom Bangura Weekly blood pressure task Care Plan Weekly blood pressure task No Tom Bangura Patient has diabetic eye disease Care Plan Patient has diabetic eye disease No Tom Bangura Patient has diabetic eye disease Care Plan Patient has diabetic eye disease No Tom Bangura Patient has diabetic eye disease Care Plan Patient has diabetic eye disease No Tom Bangura Patient has chronic kidney disease Care Plan Patient has chronic kidney disease No Tom Bangura Patient has chronic kidney disease Care Plan Patient has chronic kidney disease No Tom Bangura Patient has chronic kidney disease Care Plan Patient has chronic kidney disease No Tom Bangura Patient has diabetic neuropathy Care Plan Patient has diabetic neuropathy No Tom Bangura Patient has diabetic neuropathy Care Plan Patient has diabetic neuropathy No Tom Bangura Patient has diabetic neuropathy Care Plan Patient has diabetic neuropathy No Tom Bangura Weekly blood pressure task Care Plan Weekly blood pressure task No Tom Bangura Weekly blood pressure task Care Plan Weekly blood pressure task No Tom Bangura Weekly blood pressure task Care Plan Weekly blood pressure task No Tom Bangura Weekly blood pressure task Care Plan Weekly blood pressure task No Tom Bangura Patient has diabetic eye disease Care Plan Patient has diabetic eye disease No Tom Bangura Patient has diabetic eye disease Care Plan Patient has diabetic eye disease No Tom Bangura Patient has diabetic eye disease Care Plan Patient has diabetic eye disease No Tom Bangura Patient has diabetic eye disease Care Plan Patient has diabetic eye disease No Tom Bangura Patient has chronic kidney disease Care Plan Patient has chronic kidney disease No Tom Bangura Patient has chronic kidney disease Care Plan Patient has chronic kidney disease No Tom Bangura Patient has chronic kidney disease Care Plan Patient has chronic kidney disease No Tom Bangura Patient has chronic kidney disease Care Plan Patient has chronic kidney disease No Tom Bangura Patient has diabetic neuropathy Care Plan Patient has diabetic neuropathy No Tom Bangura Patient has diabetic neuropathy Care Plan Patient has diabetic neuropathy No Tom Bangura Patient has diabetic neuropathy Care Plan Patient has diabetic neuropathy No Tom Bangura Patient has diabetic neuropathy Care Plan Patient has diabetic neuropathy No Tom Bangura documented as of this encounter Procedures Procedure Name Priority Date/Time Associated Diagnosis Comments URINALYSIS, COMPLETE, WITH REFLEX TO CULTURE Routine 07/31/2025 2:11 PM EST documented in this encounter Results * (ABNORMAL) Urinalysis, Complete, with Reflex to Culture (07/31/2025 2:11 PM EST) Color Urine Yellow [facility] Appearance Urine Clear [facility] PH 5.5 5.0 - 9.0 [facility] Glucose Urine UA >=1000(A) Negative mg/dL [facility] Urine Blood Negative Negative [facility] Specific Hodges - Urine >=1.030(H) 1.005 - 1.025 [facility] Urine Protein Negative Neg-Trace mg/dL [facility] Urine Ketones Negative Negative mg/dL [facility] Nitrite Urine Negative Negative [facility] Leukocyte Esterase Urine Trace(A) Negative [facility] RBC Urine 0-2 0 - 2 /HPF [facility] Urine WBC >50(A) 0 - 5 /HPF [facility] Urine Squamous Epithelial Cell 0-2 0 - 2 /HPF [facility] Urine Bacteria 4+ None Seen [facility] Hyaline Casts, Urine 0-2 0 - 2 /LPF [facility] 07/31/2025 2:11 PM EST 07/31/2025 4:00 PM EST Narrative [facility] - 07/31/2025 4:32 PM EST Urine, Clean Catch us Teresa Packer [employer] [facility] URINE ORDERABLES Final Res ult [facility] [address] [place] [phone] [phone] documented in this encounter Visit Diagnoses Not on filedocumented in this encounter Additional Health Concerns Active Problems Noted Date Diagnosed Date Help patients manage their type 2 diabetes 07/31 Weekly blood pressure task 07/31/2025 Help patients manage their type 2 diabetes 07/31 Patient has diabetic eye disease 07/31/2025 Help patients manage their type 2 diabetes 07/31 Patient has chronic kidney disease 07/31/2025 Help patients manage their type 2 diabetes 07/31 Patient has diabetic neuropathy 07/31/2025 Weekly blood pressure task 07/31/2025 Weekly blood pressure task 07/31/2025 Weekly blood pressure task 07/31/2025 Patient has diabetic eye disease 07/31/2025 Patient has diabetic eye disease 07/31/2025 Patient has diabetic eye disease 07/31/2025 Patient has chronic kidney disease 07/31/2025 Patient has chronic kidney disease 07/31/2025 Patient has chronic kidney disease 07/31/2025 Patient has diabetic neuropathy 07/31/2025 Patient has diabetic neuropathy 07/31/2025 Patient has diabetic neuropathy 07/31/2025 Weekly blood pressure task 07/31/2025 Weekly blood pressure task 07/31/2025 Weekly blood pressure task 07/31/2025 Weekly blood pressure task 07/31/2025 Patient has diabetic eye disease 07/31/2025 Patient has diabetic eye disease 07/31/2025 Patient has diabetic eye disease 07/31/2025 Patient has diabetic eye disease 07/31/2025 Patient has chronic kidney disease 07/31/2025 Patient has chronic kidney disease 07/31/2025 Patient has chronic kidney disease 07/31/2025 Patient has chronic kidney disease 07/31/2025 Patient has diabetic neuropathy 07/31/2025 Patient has diabetic neuropathy 07/31/2025 Patient has diabetic neuropathy 07/31/2025 Patient has diabetic neuropathy 07/31/2025 Assessment Noted Time PHQ-9 Depression Total Score: 3 07/30/20 10:48 AM EST documented as of this encounter Care Teams Senior Project Leader/Team Lead Relationship Specialty Start Date End Date Audrey Calvo MD [address] [place] [address] PCP - General Family Medicine 05/09/17 [facility] 07/16/25 documented as of this encounter
--- OUTSIDE RECORDS SUMMARY | 2025-07-31 17:20 | XMS_ITS | Encounter Summary ---
Author Organization [employer] Address [address] [place] [address] [place], [place] [address] Care Team Providers Care Rope Rider Name Role Phone Audrey Calvo MD Primary Care Provider + Reason for Referral * Consultation (Routine) - Pending Review Specialty Diagnoses / Procedures Referred By Contac t Referred To Contact Pharmacy Diagnoses Primary hypertension Lisandra Juarez MD [address] [place] [address] Phone: tel: fax: Referral ID Status Reason Start Date Expiration Date Visits Requested Visits Authorized [id number] Pending Review Continuity of Care 02/21/2025 02/21/2026 6 6 Encounter Details Date Type Department Care Team (Late st Contact Info) Description 02/21/2025 Orders Only [facility] [address] [place], [place] [phone] Lisandra Juarez MD [address] [place] [address] Primary hypertension (Primary Dx) Social History Tobacco [...] Description 09/10/2025 11:00 AM EST Office Visit [facility] [address] [place] [phone] 09/24/2025 2:00 PM EST Telemedicine [facility] [address] [place] [phone] Cristopher Lu, PharmD [address] [place] [address] 10/03/2025 11:45 AM EST Office Visit [facility] [address] [place] [address] Audrey Calvo MD [address] [place] [address] 11/28/2025 1:00 PM EDT Office Visit [facility] ADULT DENTAL [address] [place] [address] Liya Perez Scheduled Referrals Name Type Priority Associated Diagnoses Orde r Schedule Referral to Pharmacy MTM Outpatient Referral Routine Primary hypertension Ordered: 02/21/2025 documented as of this encounter Visit Diagnoses Diagnosis Primary hypertension- Primary Unspecified essential hypertension documented in this encounter Additional Health Concerns Assessment Noted Time PHQ-9 Depression Total Score: 0 12/27/19 1:57 PM EDT documented as of this encounter Care Teams Rope Rider Relationship Specialty Start Date End Date Audrey Calvo MD [address] [place] [phone] PCP - General Family Medicine 05/09/17 [facility] 07/16/25 documented as of this encounter
--- OUTSIDE RECORDS SUMMARY | 2025-07-31 17:20 | XMS_ITS | Encounter Summary ---
Author Organization [employer] Address [address] [facility] 7t [place] [address] Care Team Providers Care Report Writer Name Role Phone Audrey Calvo MD Primary Care Provider + Encounter Details Date Type Department Care Team ([facility] Contact Info) Description 12/02/2023 Telephone [facility] [address] [place], [place] [phone] Audrey Calvo MD [address] [place] [address] Social History Tobacco Use Types Packs/Day Years [...] 09/10/2025 11:00 AM EST Office Visit [facility] [address] [place] [phone] 09/24/2025 2:00 PM EST Telemedicine [address] [address] Cristopher Lu, PharmD [address] [place] [phone] 10/03/2025 11:45 AM EST Office Visit [address] [address] Audrey Calvo MD [address] [place] [phone] 11/28/2025 1:00 PM EDT Office Visit [facility] ADULT D[facility] [address] [place] [phone] Liya Perez documented as of this encounter Visit Diagnoses Not on filedocumented in this encounter Additional Health Concerns Assessment Noted Time PHQ-9 Depression Total Score: 0 12/23/19 23 9:08 AM EDT documented as of this encounter Care Teams Report Writer Relationship Specialty Start Date End Date Audrey Calvo MD [address] [place] [phone] PCP - General Family Medicine 05/09/17 [facility] 07/16/25 documented as of this encounter
--- OUTSIDE RECORDS SUMMARY | 2025-07-31 17:20 | XMS_ITS | Encounter Summary ---
Author Organization [employer] Address 75 [facility] 7t [place] [address] Care Team Providers Care Elementary [employer] Science Teacher Name Role Phone Audrey Calvo MD Primary Care Provider + Encounter Details Date Type Department Care Team ([facility] Contact Info) Description 09/06/2024 Telephone [facility] MEDICINE [address] [place], [place] [phone] Audrey Calvo MD 230 [place] [address] Social History Tobacco Use Types Packs/Day Years [...] Description 09/10/2025 11:00 AM EST Office Visit [facility] MEDICINE [address] [place] [address] 09/24/2025 2:00 PM EST Telemedicine [facility] MEDICINE [address] [place] [address] Cristopher Lu, PharmD [address] [place] [address] 10/03/2025 11:45 AM EST Office Visit [facility] MEDICINE [address] [place] [address] Audrey Calvo MD [address] [place] [address] 11/28/2025 1:00 PM EDT Office Visit [facility] ADULT DENTAL [address] [place] [address] Liya Perez documented as of this encounter Visit Diagnoses Not on filedocumented in this encounter Additional Health Concerns Assessment Noted Time PHQ-9 Depression Total Score: 3 02/14/20 24 1:55 PM EDT documented as of this encounter Care Teams [employer] Science Teacher Relationship Specialty Start Date End Date Audrey Calvo MD [address] [place] [phone] PCP - General Family Medicine 05/09/17 [facility] 07/16/25 documented as of this encounter
--- OUTSIDE RECORDS SUMMARY | 2025-07-31 17:20 | XMS_ITS | Encounter Summary ---
Author Organization [employer] Address [address] [place] [address] 7 [place] [address] Care Team Providers Care Sales Lead Name Role Phone Audrey Calvo MD Primary Care Provider + Reason for Visit * Reason Onset Date Comments plan of care 07/31/2025 Encounter Details Date Type Department Care Team ([facility] st Contact Info) Description 07/31/2025 Telephone [facility] MEDICINE [address] [place] [address] Audrey Calvo MD 230 [place] [address] plan of care Social History Tobacco Use Types Packs/Day Years [...] encounter Miscellaneous Notes * Telephone Encounter - Tom Bangura - 07/31/2025 4:38 PM EST TC from [place] with [facility] looking for status of plan of care. documented in this encounter Plan of Treatment Upcoming Encounters Date Type Department Care Team (Late st Contact Info) Description 09/10/2025 11:00 AM EST Office Visit [facility] MEDICINE [address] [place] [address] 09/24/2025 2:00 PM EST Telemedicine [address] [address] Cristopher Lu, MayankD [address] [place] [address] 10/03/2025 11:45 AM EST Office Visit [address] [address] Audrey Calvo MD 230 [place] [address] 11/28/2025 1:00 PM EDT Office Visit [facility] ADULT DENTAL [address] [place] [address] Liya Perez documented as of this encounter [...] Tom Bangura documented as of this encounter Visit Diagnoses [...] documented as of this encounter Care Teams Sales Lead Relationship Specialty Start Date End Date Audrey Calvo MD [address] [place] [address] PCP - General Family Medicine 05/09/17 [facility] 07/16/25 documented as of this encounter
--- OUTSIDE RECORDS SUMMARY | 2025-07-31 17:20 | XMS_ITS | Encounter Summary ---
Author Organization [employer] Address 75 [facility] 7 [place] [address] Care Team Providers Care Etcher Printed Circuit Boards Name Role Phone Audrey Calvo MD Primary Care Provider + Reason for Visit * Reason Onset Date Comments Appointment Request 12/11/2024 Encounter Details Date Type Department Care Team ([facility] Contact Info) Description 12/11/2024 Telephone [facility] MEDICINE 230 [place] [address] Audrey Calvo MD 230 [place] [address] Appointment Request Social History Tobacco Use Types [...] the past 12 months, has t he [facility], gas, oil or water [employer] threatened to shut off services in your [...] R/s Apt from 12/11/24. Contact pt at [phone] documented in this encounter Plan of Treatment Upcoming Encounters Date Type Department Care Team (Late st Contact Info) Description 09/10/2025 11:00 AM EST Office Visit [facility] MEDICINE [address] [place] [address] 09/24/2025 2:00 PM EST Telemedicine [address] [address] Cristopher Lu, PharmD [address] [place] [address] 10/03/2025 11:45 AM EST Office Visit [address] [address] Audrey Calvo MD [address] [place] [address] 11/28/2025 1:00 PM EDT Office Visit [facility] ADULT DENTAL 230 [place] [address] Liya Perez documented as of this encounter Visit Diagnoses Not on filedocumented in this encounter Additional Health Concerns Assessment Noted Time PHQ-9 Depression Total Score: 3 02/14/20 24 1:55 PM EDT documented as of this encounter Care Teams Etcher Printed Circuit Boards Relationship Specialty Start Date End Date Audrey Calvo MD 230 [place] [address] PCP - General Family Medicine 05/09/17 [facility] 07/16/25 documented as of this encounter
--- OUTSIDE RECORDS SUMMARY | 2025-07-31 17:20 | XMS_ITS | Encounter Summary ---
Author Organization [employer] Address [address] [place] [address] 7 [place] [address] Care Team Providers Care Customer Account Coordinator Name Role Phone Audrey Calvo MD Primary Care Provider + Encounter Details Date Type Department Care Team (Late st Contact Info) Description 10/26/2022 Orders Only [facility] MEDICINE [address] [place] [address] [phone] Nila Gallardo LPN Social History Tobacco Use [...] Description 09/10/2025 11:00 AM EST Office Visit [facility] MEDICINE [address] [place] [address] [phone] 09/24/2025 2:00 PM EST Telemedicine [address] [phone] Cristopher Lu, PharmD [address] [place] [address] [phone] 10/03/2025 11:45 AM EST Office Visit [facility] MEDICINE 230 [place] [address] Audrey Calvo MD 230 [place] [address] 11/28/2025 1:00 PM EDT Office Visit [facility] ADULT DENTAL 230 [place] [address] Liya Perez documented as of this encounter Procedures Procedure Name Priority Date/Time Associated Diagnosis Comments BI MAMMOGRAM SCREENING TOMOSYNTHESIS BILATERAL Routine 11/09/2022 8:12 AM EST documented in this encounter Results * BI Mammogram Screening Tomosynthesis Bilateral (11/09/2022 8:12 AM EST) Anatomical Region Laterality Modality Breast Bilateral Mammography 11/09/2022 8:12 AM EST Narrative 11/10/2022 8:58 AM EST [facility] [address] [place] [address] Mammography Report Signed Patient: Kalyani Rogers I MR#: [id number] : 1955 Acct:[id number] Age/Sex: 67 / F ADM Date: 11/09/22 Loc: HO.MAMMO Attending Dr: Audrey Calvo MD Ordering Physician: Audrey Calvo MD Results: 1Ne gative Date of Service: 11/09/22 Follow Up: 1 Year From Orig ina Mammogram Procedure(s): MM tomosynthesis screening BI Accession Number(s): [id number] cc: Audrey Calvo MD EXAMINATION: MM SCREENING [...] signed by Chandra Moseley MD in OV> 11/10/2255 DD/ 08 TD/TT: Manager Entry: SK Procedure Note Donotuseinterpreter, Image - 11/10/2022 [facility] [address] [place] [address] Mammography Report Signed Patient: Kalyani Rogers IMR#: [id number] : [id number]:[id number] Age/Sex: 67 / FADM Date: 11/09/22 Loc: HO.MAMMO Attending Dr: Audrey Calvo MD Ordering Physician: Audrey Calvo MDResults: 1Ne gative Date of Service: 11/09/22Follow Up: 1 Year From Orig ina Mammogram Procedure(s): MM tomosynthesis screening BI Accession Number(s): [id number] cc: Audrey Calvo MD EXAMINATION: MM SCREENING [...] MD in OV> 11/10/22854 DD/ 1 TD/TT: Manager Entry: [facility] External Provider IMG BI PROCEDURES Edited Result - Final documented in this encounter Visit Diagnoses Not on filedocumented in this encounter Care Teams Customer Account Coordinator Relationship Specialty Start Date End Date Audrey Calvo MD [address] [place] [address] PCP - General Family Medicine 05/09/17 [facility] 07/16/25 documented as of this encounter
--- OUTSIDE RECORDS SUMMARY | 2025-07-31 17:20 | XMS_ITS | Encounter Summary ---
Author Organization [employer] Address 75 [facility] 7t [place] [address] Care Team Providers Care Waterworks Pump Station Operator Name Role Phone Audrey Calvo MD Primary Care Provider + Reason for Visit * Reason Comments Med Refill Encounter Details Date Type Department Care Team ([facility] st Contact Info) Description 09/20/2024 Refill [facility] MEDICINE [address] [place] [address] Audrey Calvo MD 230 [place] [address] Chronic rhinitis Social History Tobacco Use Types [...] Description 09/10/2025 11:00 AM EST Office Visit [facility] MEDICINE [address] [place] [address] 09/24/2025 2:00 PM EST Telemedicine [facility] MEDICINE [address] [place] [address] Cristopher Lu, PharmD [address] [place] [address] 10/03/2025 11:45 AM EST Office Visit [facility] MEDICINE [address] [place] [address] Audrey Calvo MD [address] [place] [address] 11/28/2025 1:00 PM EDT Office Visit [facility] ADULT DENTAL [address] [place] [address] Liya Perez documented as of this encounter Visit Diagnoses Diagnosis Chronic rhinitis documented in this encounter Additional Health Concerns Assessment Noted Time PHQ-9 Depression Total Score: 3 02/14/20 24 1:55 PM EDT documented as of this encounter Care Teams Waterworks Pump Station Operator Relationship Specialty Start Date End Date Audrey Calvo MD [address] [place] [address] PCP - General Family Medicine 05/09/17 [facility] 07/16/25 documented as of this encounter
--- OUTSIDE RECORDS SUMMARY | 2025-07-31 17:20 | XMS_ITS | Encounter Summary ---
Author Organization [employer] Address 75 [facility] 7t [place] [address] Care Team Providers Care Card Puncher Name Role Phone Audrey Calvo MD Primary Care Provider + Reason for Visit * Reason Comments Med Refill Encounter Details Date Type Department Care Team ([facility] st Contact Info) Description 10/06/2023 Refill [facility] MEDICINE 230 [place], [place] [phone] Audrey Calvo MD 230 [place] [address] Social History Tobacco Use Types Packs/Day Years [...] 09/10/2025 11:00 AM EST Office Visit [facility] MEDICINE [address] [place] [address] 09/24/2025 2:00 PM EST Telemedicine [address] [address] Cristopher Lu, PharmD [address] [place] [address] 10/03/2025 11:45 AM EST Office Visit [facility] MEDICINE [address] [place] [address] Audrey Calvo MD [address] [place] [address] 11/28/2025 1:00 PM EDT Office Visit [facility] ADULT DENTAL [address] [place] [address] Liya Perez documented as of this encounter Visit Diagnoses Not on filedocumented in this encounter Additional Health Concerns Assessment Noted Time PHQ-9 Depression Total Score: 0 12/23/19 23 9:08 AM EDT documented as of this encounter Care Teams Card Puncher Relationship Specialty Start Date End Date Audrey Calvo MD [address] [place] [address] PCP - General Family Medicine 05/09/17 [facility] 07/16/25 documented as of this encounter
--- OUTSIDE RECORDS SUMMARY | 2025-07-31 17:20 | XMS_ITS | Clinical Summary ---
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, CMS/HCC V28) (Primary Dx); Achilles tendon tear, right, sequela; Disorder of ligament of ankle, right; Dermatophytosis, nail 05/03/2025 5:47 PM EDT - 05/03/2025 11:59 PM EDT Hospital Encounter [facility] MRI [address] [place] [phone] Achilles tendon tear, right, sequela; Disorder of [...] Upcoming Encounters Date Type Department Care Team ([facility] st Contact Info) Description 08/12/2025 10:00 AM EST Office Visit [facility] [address] [phone] Los Peña, MARISABEL [address] [address] Health Maintenance Due Date Last Done Comments [...] mmol/L LAB CHEMISTRY METHOD 06/10/2025 3:21 PM [facility] Potassium 4.3 3.5 - 5.5 mmol/L LAB CHEMISTRY METHOD 06/10/2025 3:21 PM [facility] Chloride 106 96 - 110 mmol/L LAB CHEMISTRY METHOD 06/10/2025 3:21 PM [facility] CO2 32 21 - 32 mmol/L LAB CHEMISTRY METHOD 06/10/2025 3:21 PM [facility] Anion Gap 4 3 - 11 LAB CHEMISTRY METHOD 06/10/2025 3:21 PM [facility] Glucose 166(H) 70 - 100 mg/dL LAB CHEMISTRY METHOD 06/10/2025 3:21 PM [facility] BUN 10 5 - 25 mg/dL LAB CHEMISTRY METHOD 06/10/2025 3:21 PM [facility] Creatinine 0.71 0.50 - 1.10 mg/dL LAB CHEMISTRY METHOD 06/10/2025 3:21 PM [facility] eGFR 93 >=60 mL/min/1. 73m2 LAB CHEMISTRY METHOD 06/10/2025 3:21 PM [facility] Comment:Calculation based on the Chronic Kidney Disease Epidemiology Collaboration (CKD-EPI) equation refit without adjustment for race. BUN/Creatinine Ratio 14.1 LAB CHEMISTRY METHOD 06/10/2025 3:21 PM [facility] Calcium 9.5 8.5 - 10.5 mg/dL LAB CHEMISTRY METHOD 06/10/2025 3:21 PM [facility] AST (SGOT) 17 10 - 42 unit/L LAB CHEMISTRY METHOD 06/10/2025 3:21 PM [facility] ALT (SGPT) 28 10 - 60 unit/L LAB CHEMISTRY METHOD 06/10/2025 3:21 PM [facility] Alkaline Phosphatase 126(H) 42 - 121 unit/L LAB CHEMISTRY METHOD 06/10/2025 3:21 PM [facility] Total Protein 6.8 6.0 - 8.0 g/dL LAB CHEMISTRY METHOD 06/10/2025 3:21 PM [facility] Albumin 3.9 3.2 - 5.0 g/dL LAB CHEMISTRY METHOD 06/10/2025 3:21 PM [facility] Total Bilirubin 0.9 0.0 - 1.4 mg/dL LAB CHEMISTRY METHOD 06/10/2025 3:21 PM [facility] Blood Venous blood specimen / Unknown Venipuncture / Unknown 06/10/2025 10:31 AM EDT 06/10/2025 10:31 AM EDT us Los [place]ña DPM LAB BLOOD ORDERABLES Final Result [facility] [address] [place] [address], [place] [phone] * MR Ankle wo Contrast Right (05/03/2025 [...] Signed Date: 05/06/2025 15:53 ET Workstation ID: [id number] Transcribed By: Self Edit Transcribed Date: 05/06/2025 [...] Signed Date: 05/06/2025 15:53 ET Workstation ID: [id number] Transcribed By: Self Edit Transcribed Date: 05/06/2025 14:57 ET [place] DP IMG MRI PROCEDURES Final Re sult from Last 3 Months Insurance [facility] MEDICARE Member Subscriber Plan / Payer (Ef fective 2022-Present) Name:Kalyani Ford Relation to Subscriber:Self Name:SueKalyani Payer ID:[id number] Group ID:[id number] Type:Not on file Address: [address] [place] [phone] Care Teams Java Web Services Developer Relationship Specialty Start Date End Date Audrey Calvo MD [address] [place] [phone] PCP - General 02/17/24
--- OUTSIDE RECORDS SUMMARY | 2025-07-31 17:20 | XMS_ITS | Encounter Summary ---
Author Organization [employer] Address [address] [place] [address] 7 [place] [address] Care Team Providers Care Anchor Tack Puller Name Role Phone Audrey Calvo MD Primary Care Provider + Reason for Visit * Reason Onset Date Comments Med Refill Chart Prep 07/15/2025 Encounter Details Date Type Department Care Team (Late st Contact Info) Description 07/15/2025 Refill [facility] [address] [place] [address] Audrey Calvo MD [address] [place] [address] Achilles tendinitis of right lower extremity Social [...] the past 12 months, has t he [employer], gas, oil or water [employer] threatened to shut off services in your [...] encounter Miscellaneous Notes * Telephone Encounter - Medina Valdovinos [place] - 07/29/2025 2:30 PM EST Chart Prep Labs: done Images: done Referrals: not applicable Vaccines due: Covid, Flu, RSV, and Zoster Screenings: Hep C Screening Overdue care gaps: A1c, Glucose, PHQ-9, and LG-7 documented in this encounter Plan of Treatment Upcoming Encounters Date Type Department Care Team (Late st Contact Info) Description 09/10/2025 11:00 AM EST Office Visit [facility] MEDICINE [address] [place] [phone] 09/24/2025 2:00 PM EST Telemedicine [facility] MEDICINE [address] [place] [address] Cristopher Lu, PharmD [address] [place] [address] 10/03/2025 11:45 AM EST Office Visit [facility] MEDICINE 230 [place], [place] [phone] Audrey Calvo MD [address] [place] [address] 11/28/2025 1:00 PM EDT Office Visit [facility] ADULT DENTAL [address] [place], [place] [phone] Liya Perez documented as of this encounter Visit Diagnoses Diagnosis Achilles tendinitis of right lower extremity documented in this encounter Additional Health Concerns Assessment Noted Time PHQ-9 Depression Total Score: 0 12/27/19 1:57 PM EDT documented as of this encounter Care Teams Anchor Tack Puller Relationship Specialty Start Date End Date Audrey Calvo MD [address] [place] [phone] PCP - General Family Medicine 05/09/17 [facility] 07/16/25 documented as of this encounter
--- OUTSIDE RECORDS SUMMARY | 2025-07-31 17:20 | XMS_ITS | Encounter Summary ---
Author Organization [employer] Address [address] [place] [address] [place], [place] [address] Care Team Providers Care Real Estate Loan Officer Name Role Phone Audrey Calvo MD Primary Care Provider + Encounter Details Date Type Department Care Team (Late st Contact Info) Description 10/07/2022 Orders Only [facility] MEDICINE [address] [place] [address] Nila Gallardo LPN Social History Tobacco Use [...] Description 09/10/2025 11:00 AM EST Office Visit [facility] MEDICINE [address] [place] [address] 09/24/2025 2:00 PM EST Telemedicine [facility] MEDICINE [address] [place] [address] Cristopher Lu, PharmD [address] [place] [address] 10/03/2025 11:45 AM EST Office Visit [address] [address] Audrey Calvo MD [address] [place] [address] 11/28/2025 1:00 PM EDT Office Visit [facility] ADULT DENTAL 230 [place], [place] [phone] Liya Perez documented as of this encounter Visit Diagnoses Not on filedocumented in this encounter Care Teams Real Estate Loan Officer Relationship Specialty Start Date End Date Audrey Calvo MD [address] [place] [address] PCP - General Family Medicine 05/09/17 [facility] 07/16/25 documented as of this encounter
--- OUTSIDE RECORDS SUMMARY | 2025-07-31 17:20 | XMS_ITS | Encounter Summary ---
Author Organization [employer] Address [address] [place] [address] [facility] [place] [address] Care Team Providers Care Quality Control Projectionist Name Role Phone Audrey Calvo MD Primary Care Provider + Encounter Details Date Type Department Care Team (Latest Contact Info) Description 01/31/2019 Abstract [facility] CONVERSIONS Dental, Provider, DDS Social [...] Care Team ( st Contact Info) Description 09/10/2025 11:00 AM EST Office Visit [address] [address] 09/24/2025 2:00 PM EST Telemedicine [address] [address] Cristopher Lu, PharmD [address] [place] [address] 10/03/2025 11:45 AM EST Office Visit [address] [address] Audrey Calvo MD [address] [place] [address] 11/28/2025 1:00 PM EDT Office Visit [facility] ADULT DENTAL [address] [place] [address] Liya Perez documented as of this encounter Visit Diagnoses Not on filedocumented in this encounter Care Teams Quality Control Projectionist Relationship Specialty Start Date End Date Audrey Calvo MD [address] [place] [address] PCP - General Family Medicine 05/09/17 [facility] 07/16/25 documented as of this encounter
--- OUTSIDE RECORDS SUMMARY | 2025-07-31 17:20 | XMS_ITS | Encounter Summary ---
Author Organization [employer] Address 75 [facility] 7 [place] [address] Care Team Providers Care Brand Communications Manager Name Role Phone Audrey Calvo MD Primary Care Provider + Reason for Visit * Reason Comments Med Refill Encounter Details Date Type Department Care Team ([facility] st Contact Info) Description 03/29/[address] [facility] MEDICINE [address] [place] [address] Audrey Calvo MD [address] [place] [address] Diabetic polyneuropathy associated with type 2 diabetes [...] Description 09/10/2025 11:00 AM EST Office Visit [facility] MEDICINE [address] [place] [address] 09/24/2025 2:[address] [facility] MEDICINE [address] [place] [address] Cristopher Lu, PharmD [address] [place] [address] 10/03/2025 11:45 AM EST Office Visit [facility] MEDICINE [address] [place] [address] Audrey Calvo MD [address] [place] [address] 11/28/2025 1:00 PM EDT Office Visit [facility] ADULT DENTAL [address] [place] [phone] Liya Perez documented as of this encounter Visit Diagnoses Diagnosis Diabetic polyneuropathy associated with type 2 diabetes mellitus (HCC) documented in this encounter Additional Health Concerns Assessment Noted Time PHQ-9 Depression Total Score: 0 12/27/19 1:57 PM EDT documented as of this encounter Care Teams Brand Communications Manager Relationship Specialty Start Date End Date Audrey Calvo MD [address] [place] [address] PCP - General Family Medicine 05/09/17 [facility] 07/16/25 documented as of this encounter
--- OUTSIDE RECORDS SUMMARY | 2025-07-31 17:20 | XMS_ITS | Encounter Summary ---
Author Organization [employer] Address [address] [facility] 7t [place] [address] Care Team Providers Care Pack Master Name Role Phone Audrey Calvo MD Primary Care Provider + Reason for Visit * Reason Comments Med Refill Encounter Details Date Type Department Care Team ([facility] st Contact Info) Description 07/06/2023 Refill [facility] CHC MED & PEDS [address] [place], [place] [phone] Audrey Calvo MD [address] [place] [address] Lumbago with sciatica, unspecified side Social History [...] Description 09/10/2025 11:00 AM EST Office Visit [facility] MEDICINE [address] [place] [address] 09/24/2025 2:00 PM EST Telemedicine [facility] [address] [place] [phone] Cristopher Lu, PharmD [address] [place] [address] 9[address] 10/03/2025 11:45 AM EST Office Visit [facility] [address] [place] [address] Audrey Calvo MD [address] [place] [address] 21618 11/28/2025 1:00 PM EDT Office Visit [facility] ADULT DENTAL [address] [place] [phone] Liya Perez documented as of this encounter Visit Diagnoses Diagnosis Lumbago with sciatica, unspecified side documented in this encounter Additional Health Concerns Assessment Noted Time PHQ-9 Depression Total Score: 0 12/23/19 23 9:08 AM EDT documented as of this encounter Care Teams Pack Master Relationship Specialty Start Date End Date Audrey Calvo MD [address] [place] [address] PCP - General Family Medicine 8/21/17 [facility] 07/16/25 documented as of this encounter
--- OUTSIDE RECORDS SUMMARY | 2025-07-31 17:20 | XMS_ITS | Encounter Summary ---
Author Organization [employer] Address [address] [facility] 7t [place] [address] Care Team Providers Care Costume Specialist Name Role Phone Audrey Calvo MD Primary Care Provider + Encounter Details Date Type Department Care Team ([facility] Contact Info) Description 02/05/2025 Telephone [facility] MED & PEDS [address] [place], [place] [phone] Audrey Calvo MD [address] [place] [address] Social History Tobacco Use Types Packs/Day Years [...] Description 09/10/2025 11:00 AM EST Office Visit [facility] MEDICINE [address] [place] [phone] 09/24/2025 2:00 PM EST Telemedicine [facility] MEDICINE [address] [place] [phone] Cristopher Lu, PharmD [address] [place] [address] 165[address] 10/03/2025 11:45 AM EST Office Visit [facility] MEDICINE [address] [place] [address] Audrey Calvo MD [address] [place] [address] 27[address] 11/28/2025 1:00 PM EDT Office Visit [facility] ADULT DENTAL [address] [place] [address] [phone] Liya Perez documented as of this encounter Visit Diagnoses Not on filedocumented in this encounter Additional Health Concerns Assessment Noted Time PHQ-9 Depression Total Score: 0 12/27/19 1:57 PM EDT documented as of this encounter Care Teams Costume Specialist Relationship Specialty Start Date End Date Audrey Calvo MD [address] [place] [address] PCP - General Family Medicine 05/09/17 [facility] 07/16/25 documented as of this encounter
--- OUTSIDE RECORDS SUMMARY | 2025-07-31 17:20 | XMS_ITS | Data Portability ---
Author Organization [facility] [employer] [facility] Address [address] [place] [address] Care Team Providers Care Orthopaedic Doctor Name Role Phone HIM CCA OTHER Assessment Encounter Date Assessment Date Assessment LastModified by Organization Details LastModified Time 01/15/2025 01/15/2025 Evaluation in the field was performed by my stock clerk colleague, as noted above, I provided real-time [...] tick, blood 025 01/16/20 25 [facility], [address] [place] [address], [id number] 5 15:13:07 Referral None recorde d. 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 5 13:38:24 Social History None [...] ICD10 Code Diagnosis IMO Codes Diagnosis Note [id number] Ginger Steele MD Main - [facility] [address] [place] [phone] 01/15/2025 13:19:27 01/15/2025 15:05:54 [facility] [id number] R73.9 [id number] Health Concerns Section Related Observation LastModified by Organization Detai ls LastModified Time None Recorded Concern Status LastModified by Organization Details LastModified Time None Recorded Advance Directives Directive None Recorded Payers Insurance Date Sequence Insurance Name Policy Number Policy Magana Covered Member ID Magana Member ID Guarantor Name 01/15/2025 1 [facility] - DOS ON OR AFTER 2022 - DUAL ELIGIBLE - NURSING HOME OPTIONS AND ONE CARE (MEDICARE REPLACEMENT/AD VANTAGE - HMO) Kalyani Ling [id number] Kalyani Ling Notes Date Note Type Note Provider Name and Address Organization Details Recorded Time 01/15/2025 text/html ROS as noted in the HPI HPI: No science interpreter needed as this poem writer speaks Vietnamese. Call returned to Kalyani Rogers to triage [...] Tuesday. Pt states unable to come into [facility] or return to Urology office [...] ...................... ...................... ...................... ...................... ...................... ...................... ......... Napper Fixer Note From Yadi Ness: Sent to a call for a pt complaining of high blood sugar and possible UTI. SC8 arrives on scene, pt is alert and oriented, airway is patent. Pt's primary language is Vietnamese. Pt's family serves as science interpreter. Pt has history of DM2 and [...] sugar and contacted clinic today, who called [facility] for a visit. Pt denies hartman, cp, sob, cough, runny nose, vomiting, diarrhea, hematuria, fever, or loc. BP:118/62, P:73, RR:18, SpO2:97%RA, T:98.6, B; Head: unremarkable; Lung sounds: clear bilaterally; Abdomen: soft, non-tender, no distention; Back: unremarkable; Extremities: unremarkable; Urine sample obtained; urine dip results: uploaded to [facility]. [facility] consulted and pt is advised to have labs drawn/obtained tomorrow, and follow up with PCP. Pt is reassured BG is not in an urgent/unsafe range. Pt advised urine dip: neg; Red flags discussed. Pt has no further questions. [facility] Lab Orders: glucose, fingerstick, blood: Performed ...................... ...................... ...................... ...................... ...................... ...................... ......... [facility] Consulted: Ginger Steele ...................... ...................... ...................... ...................... ...................... ...................... ......... Disposition: Fulfilled Ginger Steele MD [address] [facility],[address], [place], [address], [employer] 01/15/2025 14:53:12 OBGyn Episode No OBEpisode recorded.
--- OUTSIDE RECORDS SUMMARY | 2025-07-31 17:20 | XMS_ITS | Encounter Summary ---
Author Organization [employer] Address [address] [facility] 7t [place] [address] Care Team Providers Care Automatic Lathe Tender Name Role Phone Audrey Calvo MD Primary Care Provider + Encounter Details Date Type Department Care Team ([facility] st Contact Info) Description 10/19/2023 Orders Only [facility] CHC MED & PEDS [address] [place] [address] Nila Gallardo LPN Social History Tobacco Use [...] Description 09/10/2025 11:00 AM EST Office Visit [facility] MEDICINE [address] [place] [address] 09/24/2025 2:00 PM EST Telemedicine [facility] MEDICINE [address] [place] [address] Cristopher Lu, PharmD [address] [place] [phone] 10/03/2025 11:45 AM EST Office Visit [address] [address] Audrey Calvo MD [address] [place] [address] 11/28/2025 1:00 PM EDT Office Visit [facility] ADULT DENTAL [address] [place] [address] Liya Perze documented as of this encounter Visit Diagnoses Not on filedocumented in this encounter Additional Health Concerns Assessment Noted Time PHQ-9 Depression Total Score: 0 12/23/19 23 9:08 AM EDT documented as of this encounter Care Teams Automatic Lathe Tender Relationship Specialty Start Date End Date Audrey Calvo MD [address] [place] [phone] PCP - General Family Medicine 05/09/17 [facility] 07/16/25 documented as of this encounter
--- OUTSIDE RECORDS SUMMARY | 2025-07-31 17:20 | XMS_ITS | Clinical Summary ---
Author Organization [facility] Address [address] [facility] [address] [place] [address] Phone Care Team Providers Care Oil Field Technician Name Role Phone Unavailable Primary Care Provider [...] It is not the complete legal health record.[facility]
--- OUTSIDE RECORDS SUMMARY | 2025-07-31 17:20 | XMS_ITS | Encounter Summary ---
Author Organization [email or web address] Address [address] [facility] 7t [place] [address] Care Team Providers Care Consumer Relations Specialist Name Role Phone Audrey Calvo MD Primary Care Provider + Encounter Details Date Type Department Care Team ([facility] Contact Info) Description 07/02/2024 Orders Only [facility] MEDICINE [address] [place] [address] Cassia Juarez MD [address] [place] [address] Social History Tobacco Use Types Packs/Day Years [...] Description 09/10/2025 11:00 AM EST Office Visit [facility] MEDICINE [address] [place] [phone] 09/24/2025 2:00 PM EST Telemedicine [facility] MEDICINE [address] [place] [address] Cristopher Lu, PharmD [address] [place] [address] 16258 10/03/2025 11:45 AM EST Office Visit [facility] MEDICINE [address] [place] [address] Audrey Calvo MD [address] [place] [address] 11/28/2025 1:00 PM EDT Office Visit [facility] ADULT DENTAL [address] [place] [address] Liya Perez documented as of this encounter Visit Diagnoses Not on filedocumented in this encounter Additional Health Concerns Assessment Noted Time PHQ-9 Depression Total Score: 3 02/14/20 24 1:55 PM EDT documented as of this encounter Care Teams Consumer Relations Specialist Relationship Specialty Start Date End Date Audrey Calvo MD [address] [place] [address] PCP - General Family Medicine 05/09/17 [facility] 07/16/25 documented as of this encounter
--- OUTSIDE RECORDS SUMMARY | 2025-07-31 17:20 | XMS_ITS | Encounter Summary ---
Author Organization [employer] Address [address] [place] [address] 7 [place] [address] Care Team Providers Care Substance Abuse Counselor Name Role Phone Audrey Calvo MD Primary Care Provider + Reason for Visit * Reason Comments Med Refill Encounter Details Date Type Department Care Team ([facility] st Contact Info) Description 01/02/2025 Refill [facility] MEDICINE [address] [place] [address] Audrey Calvo MD [address] [place] [address] Social History Tobacco Use Types Packs/Day Years [...] Description 09/10/2025 11:00 AM EST Office Visit [facility] MEDICINE [address] [place] [address] 09/24/2025 2:00 PM EST Telemedicine [facility] MEDICINE [address] [place] [address] Cristopher Lu, PharmD [address] [place] [address] 10/03/2025 11:45 AM EST Office Visit [facility] MEDICINE [address] [place] [address] Audrey Calvo MD [address] [place] [address] 11/28/2025 1:00 PM EDT Office Visit [facility] ADULT DENTAL [address] [place] [address] Liya Perez documented as of this encounter Visit Diagnoses Not on filedocumented in this encounter Additional Health Concerns Assessment Noted Time PHQ-9 Depression Total Score: 0 12/27/19 1:57 PM EDT documented as of this encounter Care Teams Substance Abuse Counselor Relationship Specialty Start Date End Date Audrey Calvo MD [address] [place] [address] PCP - General Family Medicine 05/09/17 [facility] 07/16/25 documented as of this encounter
--- OUTSIDE RECORDS SUMMARY | 2025-07-31 17:20 | XMS_ITS | Encounter Summary ---
Author Organization [email or web address] Address [address] [facility] 7t [place] [address] Care Team Providers Care Civil Preparedness Officer Name Role Phone Audrey Calvo MD Primary Care Provider + Encounter Details Date Type Department Care Team (Latest Contact Info) Description 07/30/2025 Travel Social History Tobacco Use Types Packs/Day [...] AM EDT documented as of this encounter Functional Status * Over the past 2 weeks, how often have you been bothered by any of the following problems? Question Answer Date of Assessment Author Patient Health Questionnaire-2 Score 1 07/30/2025 10:48 AM Claudia Mason MA * Little interest or pleasure in doing things Answer Date of Assessment Author Several days 07/30/2025 10:48 AM Claudia Min MA * Feeling down, depressed, or hopeless Answer Date of Assessment Author Not at all 07/30/2025 10:48 AM Claudia Min MA * Trouble falling or staying asleep, or sleeping too much Answer Date of Assessment Author Several days 07/30/2025 10:48 AM Claudia Min MA * Feeling tired or having little energy Answer Date of Assessment Author Several days 07/30/2025 10:48 AM Claudia Min MA * Poor appetite or overeating Answer Date of Assessment Author Not at all 07/30/2025 10:48 AM Claudia Min MA * Feeling bad about yourself - [...] awful might happen 0 07/30/2025 10:48 AM EST Claudia Odonnell MA LG-7 Total Score 0 07/30/2025 10:48 AM EST Claudia Huddleston MA documented as of this encounter Plan of Treatment Upcoming Encounters Date Type Department Care Team (Late st Contact Info) Description 09/10/2025 11:00 AM EST Office Visit [facility] MEDICINE [address] [place] [address] 09/24/2025 2:00 PM EST Telemedicine [facility] MEDICINE [address] [place] [address] Cristopher Lu, PharmD [address] [place] [phone] 10/03/2025 11:45 AM EST Office Visit [address] [address] Audrey Calvo MD [address] [place] [address] 11/28/2025 1:00 PM EDT Office Visit [facility] ADULT DENTAL [address] [place] [address] Liya Perez documented as of this encounter Visit Diagnoses Not on filedocumented in this encounter Additional Health Concerns Assessment Noted Time PHQ-9 Depression Total Score: 3 07/30/20 25 10:48 AM EST documented as of this encounter Care Teams Civil Preparedness Officer Relationship Specialty Start Date End Date Audrey Calvo MD [address] [place] [phone] PCP - General Family Medicine 05/09/17 [facility] 07/16/25 documented as of this encounter
--- OUTSIDE RECORDS SUMMARY | 2025-07-31 17:20 | XMS_ITS | Encounter Summary ---
Author Organization [employer] Address [address] [facility] 7t [place] [address] Care Team Providers Care Efficiency Clerk Name Role Phone Audrey Calvo MD Primary Care Provider + Encounter Details Date Type Department Care Team ([facility] Contact Info) Description 06/29/2023 Orders Only [facility] CHC MED & PEDS [address] [place] [address] Emi Gill LPN Social History Tobacco Use [...] Description 09/10/2025 11:00 AM EST Office Visit [facility] MEDICINE [address] [place] [phone] 09/24/2025 2:00 PM EST Telemedicine [facility] MEDICINE [address] [place] [address] Cristopher Lu, PharmD [address] [place] [address] 10/03/2025 11:45 AM EST Office Visit [address] [address] Audrey Calvo MD [address] [place] [address]83 11/28/2025 1:00 PM EDT Office Visit [facility] ADULT DENTAL [address] [place] [address] Liya Perez documented as of this encounter Visit Diagnoses Not on filedocumented in this encounter Additional Health Concerns Assessment Noted Time PHQ-9 Depression Total Score: 0 12/23/19 23 9:08 AM EDT documented as of this encounter Care Teams Efficiency Clerk Relationship Specialty Start Date End Date Audrey Calvo MD [address] [place] [address] PCP - General Family Medicine 05/09/17 [facility] 07/16/25 documented as of this encounter
--- OUTSIDE RECORDS SUMMARY | 2025-07-31 17:20 | XMS_ITS | Encounter Summary ---
Author Organization [employer] Address [address] [facility] 7t [place] [address] Care Team Providers Care Junior Accountant Bookkeeper Name Role Phone Audrey Calvo MD Primary Care Provider + Encounter Details Date Type Department Care Team ([facility] Contact Info) Description 07/31/2025 Telephone [facility] MEDICINE [address] [place] [address] Audrey Calvo MD [address] [place] [address] Social History Tobacco Use Types Packs/Day Years [...] Description 09/10/2025 11:00 AM EST Office Visit [facility] MEDICINE [address] [place] [address] 09/24/2025 2:00 PM EST Telemedicine [facility] MEDICINE [address] [place] [address] Cristopher Lu, PharmD [address] [place] [phone] 10/03/2025 11:45 AM EST Office Visit [facility] MEDICINE [address] [place] [address] Audrey Calvo MD [address] [place] [address]708 11/28/2025 1:00 PM EDT Office Visit [facility] ADULT DENTAL [address] [place] [address] 94[address] Liya Perez documented as of this encounter Goals Goal Patient Goal Type Associated Problems Recent Progress Patient-Stated? Author Help patients manage their type 2 diabetes Care Plan Help patients manage their type 2 diabetes No oTm Bangura Weekly blood pressure task Care Plan [...] Plan Weekly blood pressure task No Tom Banguar Weekly blood pressure task Care Plan Weekly [...] Plan Patient has diabetic eye disease No Bangura, Tom Patient has chronic kidney disease Care Plan Patient has chronic kidney disease No Willem, Tom Patient has chronic kidney disease Care Plan Patient has chronic kidney disease No Bangura, Tom Patient has chronic kidney disease Care Plan Patient has chronic kidney disease No Bangura, Tom Patient has chronic kidney disease Care Plan Patient has chronic kidney disease No Bangura, Tom Patient has diabetic neuropathy Care Plan Patient has diabetic neuropathy No Willem, Tom Patient has diabetic neuropathy Care Plan Patient has diabetic neuropathy No Bangura, Tom Patient has diabetic neuropathy Care Plan Patient has diabetic neuropathy No Willem, Tom Patient has diabetic neuropathy Care Plan Patient [...] documented as of this encounter Care Teams Junior Accountant Bookkeeper Relationship Specialty Start Date End Date Audrey Calvo MD [address] [place] [phone] PCP - General Family Medicine 05/09/17 [facility] 07/16/25 documented as of this encounter
--- OUTSIDE RECORDS SUMMARY | 2025-07-31 17:20 | XMS_ITS | Encounter Summary ---
Author Organization [employer] Address [address] [facility] 7t [place] [address] Care Team Providers Care Hotel Baggage Handler Name Role Phone Audrey Calvo MD Primary Care Provider + Reason for Visit * Reason Comments Med Refill Encounter Details Date Type Department Care Team ([facility] st Contact Info) Description 08/18/2023 Refill [facility] MEDICINE [address] [place] [address] Audrey Calvo MD [address] [place] [address] Social History Tobacco Use Types Packs/Day Years [...] 09/10/2025 11:00 AM EST Office Visit [facility] MEDICINE [address] [place] [address] 09/24/2025 2:00 PM EST Telemedicine [address] [address] Cristopher Lu, PharmD [address] [place] [phone] 10/03/2025 11:45 AM EST Office Visit [facility] MEDICINE [address] [place] [address] Audrey Calvo MD [address] [place] [address] 11/28/2025 1:00 PM EDT Office Visit [facility] ADULT DENTAL [address] [place] [address] Liya Perez documented as of this encounter Visit Diagnoses Not on filedocumented in this encounter Additional Health Concerns Assessment Noted Time PHQ-9 Depression Total Score: 0 12/23/19 23 9:08 AM EDT documented as of this encounter Care Teams Hotel Baggage Handler Relationship Specialty Start Date End Date Audrey Calvo MD [address] [place] [phone] PCP - General Family Medicine 05/09/17 [facility] 07/16/25 documented as of this encounter
--- OUTSIDE RECORDS SUMMARY | 2025-07-31 17:21 | XMS_ITS | Clinical Summary ---
Author Organization [employer] Address [address] [place] [address] [address] [place] [address] Care Team Providers Care Mechanical Test Engineer Name Role Phone Audrey Calvo MD Primary Care Provider + Allergies Active Allergy Reactions Criticality Noted Date Comments Aspirin 08/15/2018 Gramineae Pollens Shortness of breath High 3 Medications * This document contains information received from the source organization and may not represent a complete record from that organization. TRUEplus Lancets 33G miscIndications: Type 2 diabetes mellitus with unspecified complications (HCC) [...] 3 025 Active lidocaine (Lidoderm) 5 % patchIndications :Primary osteoarthritis of both knees,Other chronic pain APPLY 1 PATCH TOPICALLY TO SKIN, LEAVE ON FOR 12 HOURS AND OFF FOR 12 HOURS DIRECTED 30 patch 3 025 Active Dulaglutide (Trulicity) 4.5 MG/0.5ML solution auto-injectorInd ications:Type 2 diabetes mellitus with hyperglycemia, without long-term current use of insulin (HCC) Inject 4.5 mg under the skin 1 (one) time per week. 2 mL 11 04/09/2 025 Active Polyvinyl Alcohol-Povidone 5-6 MG/ML solution Administer [...] at home 1 kit Active Continuous Glucose Commercial Portfolio Manager (FreeStyle Marcos 2 [place]) deviceIndication s:Type 2 diabetes mellitus with hyperglycemia, without long-term current use of insulin ([facility]) Use to scan sensor every 8 hours as directed 1 each Active Lantus SoloStar 100 UNIT/ML penIndications:T ype 2 diabetes mellitus with hyperglycemia, without long-term current use of insulin ([facility]) Inject 20 units subcutaneously every evening 3 mL Active fluticasone (Flonase) 50 MCG/ACT nasal spray Administer 1 spray into each nostril Once per day. 16 g 025 Active Pentips Generic Pen [place] 32G X 4 MM misc USE ONCE DAILY DIRECTED 100 each 4 025 Active capsaicin (Capzasin-HP) 0.1 % creamIndications :Primary osteoarthritis of left knee Apply thin layer by topical route up to 4 times daily for pain. 45 g 3 Active lidocaine (Xylocaine) 5 % ointmentIndicati ons:Primary osteoarthritis of left knee Apply topically if needed in the morning, at noon, and at bedtime (pain). 30 g 3 025 2025 Active Continuous Glucose Sensor (FreeStyle Marcos 2 Sensor) miscIndications: Type 2 diabetes mellitus with hyperglycemia, without long-term current use of insulin (HCC) USE TO TEST BLOOD SUGAR DIRECTED. CHANGE EVERY 14 DAYS 2 each Active Diclofenac Sodium 1 % gelIndications:P rimary osteoarthritis of left knee APPLY 2 GRAMS TO AFFECTED AREA(S) THREE TIMES DAILY NEEDED FOR PAIN 100 g 1 Active estradiol (Estrace) 0.1 MG/GM vaginal cream INSERT A PEA SIZED AMOUNT VAGINALLY TO THE URETHRA 3 TIMES A WEEK DIRECTED Active famotidine (Pepcid) 20 MG tablet Take 20 mg by mouth at bedtime. Active pregabalin (Lyrica) 75 MG capsuleIndicatio ns:Primary osteoarthritis of knee, unspecified laterality TAKE 1 CAPSULE BY MOUTH AT BEDTIME 30 capsule Active oxyCODONE-acetam inophen (Percocet) 10-325 MG tabletIndication s:Achilles tendinitis of right lower extremity Take 1 tablet by mouth every 12 (twelve) hours if needed for severe pain for up to 28 days. 56 tablet 025 2024 Active Aspirin Low Dose 81 MG chewable tablet Chew 1 tablet Once per day. 025 Active enalapril (Vasotec) 20 MG tabletIndication s:Primary hypertension TAKE 1 TABLET BY MOUTH EVERY MORNING 90 tablet 1 Active empagliflozin (Jardiance) 25 MG Take 1 tablet (25 mg) by mouth Once per day. 30 tablet 11 025 2025 Active ondansetron (Zofran) 4 MG tabletIndication s:UTI due to extended-spectru m beta lactamase (ESBL) producing Escherichia coli Take 1 tablet (4 mg) by mouth every 8 (eight) hours if needed for nausea or vomiting for up to 10 days. 30 tablet 025 2024 Active enalapril (Vasotec) 20 MG tabletIndication s:Primary hypertension TAKE 1 TABLET BY MOUTH EVERY MORNING 90 tablet 1 025 2024 Discontinued pregabalin (Lyrica) 75 MG capsuleIndicatio ns:Primary osteoarthritis of knee, unspecified laterality Take 1 capsule (75 mg) by mouth at bedtime. 30 capsule 025 2024 Discontinued oxyCODONE-acetam inophen (Percocet) 10-325 MG tabletIndication s:Achilles tendinitis of right lower extremity TAKE 1 TABLET BY MOUTH EVERY TWELVE HOURS NEEDED FOR SEVERE PAIN FOR UP TO 28 DAYS 56 tablet 025 2024 Discontinued(R eorder (will not trigger notification to Pharmacy)) sulfamethoxazole -trimethoprim (Bactrim DS) 800-160 MG tablet Take 1 tablet by mouth 2 times daily. 025 2024 nitrofurantoin, macrocrystal-mon ohydrate, (Macrobid) 100 MG capsule Take 1 capsule (100 mg) by mouth 2 times daily for 7 days. 14 capsule 025 2024 Active Problems Problem Noted Date Diagnosed Date Cerebrovascular accident abo rted by administration of thrombolytic agent ([facility]) 07/30/2025 Dumping syndrome 04/25/2025 Assessment & Plan (04/25/2025 [...] audiology testing and follow-up with me after care home current use of opiate analgesic 2023 Overview (10/18/2024): Medication: Percocet 10-325mg Q12H PRN Indication: cervical spondylosis, bilat knee OA Last PRINTER APPRENTICE Agreement: 10/16/24 Tier III (PRINTER APPRENTICE visit every 4-6 months) Assessment & Plan [...] Normal DEXA: 12/07/2022: Normal Pap: referred to ROLL EXAMINER by PCP Colonoscopy 08/28/2019 Dr Howard Assessment & Plan (01/01/2025 4:52 PM EDT): Patient will call ROLL EXAMINER to reschedule Pap smear, I will follow-up at next appointment Osteoarthritis of right ankle and foot 3 Bifascicular block 02/03/2023 Cough 02/03/2023 Exacerbation of intermittent asthma 02/03/2023 Dietary counseling 12/22/2022 Assessment & Plan (12/22/2022 10:37 AM EDT): Pt with weight gain over the past year after renal abscess recommened to schedule appointment to fu with dietitian from weight management program with [facility] ct scan to fu renal abcess is [...] , patient wants to be referred to ROLL EXAMINER. Mammogram Overdue, I will schedule mammo. Bone [...] scheduled for PAP smear, will refer to head concierge Mammogram: up to date, next one due [...] Ankle enthesopathy 10/20/2022 Chronic ankle pain 10/20/2022 Obesity 10/20/2022 Assessment & Plan (10/20/2022 [...] 10/20/2022 2:32 PM BY STANFORD SAHU S/p EGFreddie 2015. Symptoms seem to be exacerbated after [...] continue PPI management - refer to GI Achilles tendinitis 11/17/2018 Assessment & Plan (07/29/2023 10:27 AM EST): S/p surgery, doing well on a walking surgical shoe Fu w/ orthopedics Cont percocet BID + tylenol in between Reminded Pt to be compliant with PRINTER APPRENTICE Tubular adenoma of colon 07/17/2018 Calcaneal spur [...] CENTER on 11/03/23 Patient will fu with [facility] re provider for CPAP She's aware [...] Mild osteoarthritis. No fracture or joint effusion. [facility] Ortho: consult 02/26/25 with plan for MRI [...] of multiple topical analgesics after discussion with [facility] Pharmacist - meds sent to pharmacy [...] morbidity and mortality. Patient will fu with [facility] CM after rx recliner Assessment & Plan [...] on oxycodone PRN Continue close fu with PRINTER APPRENTICE program We have done [employer] education re [...] and dry Sepsis due to Escherichia coli ([facility]) 02/03/2023 02/01/2025 UTI due to extended-spectrum beta lactamase (ESBL) producing Escherichia coli 02/03/20232024 Gram-negative bacteremia 02/03/2023 Focal pyelonephritis 02/03/2023 025 COVID-19 02/03/2023 02/01/2025 Chronic bronchitis ([facility]) 10/20/2022 02/14/2024 Disorder of vein 12/29/2018 07/30/2025 Knee pain 05/19/2017 02/01/2025 Severe obesity ([facility]) 02/11/201204/2025 Diabetic polyneuropathy 03/10/201101/18 Assessment & Plan [...] Encounters Date Type Department Care Team Description 07/31/2025 Telephone [facility] [address] [place] [address] Audrey Calvo MD plan of care 07/31/2025 Telephone [facility] [address] [place] [address] Audrey Calvo MD 07/31/2025 Orders Only [facility] [address] [place] [phone] Teresa Packer FNP 07/30/2025 10:45 AM EST Office Visit [facility] [address] [place] [phone] Audrey Calvo MD Cerebrovascular accident aborted by administration of thrombolytic agent (CMS/HCC) (HCC) (Primary Dx); Type 2 diabetes mellitus with hyperglycemia, without long-term current use of insulin (HCC); UTI due to extended-spectrum beta lactamase (ESBL) producing Escherichia coli; Pure hypercholesterolemia; Exercise counseling; Class 1 obesity due to excess calories with serious comorbidity and body mass index (BMI) of 33.0 to 33.9 in adult; Dietary counseling 07/30/2025 Travel 07/23/2025 Refill [facility] [address] [place] [phone] Audrey Calvo MD Primary hypertension 07/18/2025 Results Follow-Up [facility] [address] [place] [phone] NameSrinivas MD Culture, Urine, Routine 07/16/2025 Travel 07/15/2025 Orders Only GENERIC EXTERNAL DATA DEPARTMENT Provider, Generic External Data 07/15/2025 Refill [facility] [address] [place] [phone] Audrey Calvo MD Achilles tendinitis of right lower extremity 07/15/2025 Refill [facility] [address] [place] [phone] Mey Vargas, ZBIGNIEW Achilles tendinitis of right lower extremity 07/15/2025 Patient Outreach [facility] [address] [place] [phone] Audrey Calvo MD Transition Of Care (Tcm) (HDF scheduled and SDOH screening completed on 12/26/24 ) 07/12/2025 Orders Only GENERIC EXTERNAL DATA DEPARTMENT Provider, Generic External Data 07/12/2025 Telephone [facility] [address] [place] [phone] Audrey Calvo MD Care Coordination 07/04/2025 Refill [facility] [address] [place] [address] Audrey Calvo MD Primary osteoarthritis of knee, unspecified laterality 06/11/2025 Refill [facility] [address] [place] [address] Audrey Calvo MD Achilles tendinitis of right lower extremity 06/04/2025 Refill [facility] [address] [place] [address] Audrey Calvo MD Primary osteoarthritis of knee, unspecified laterality 05/21/2025 2:00 PM EDT Telemedicine [facility] [address] [place] [phone] Cristopher Lu, PharmD Primary hypertension (Primary Dx) 05/16/2025 11:00 AM EDT Office Visit [facility] ADULT DENTAL [address] [place] [phone] Liya Perez Dental calculus (Primary Dx); Dental plaque 05/14/2025 11:00 AM EDT Office Visit [facility] [address] [place] [phone] Teresa Packer FNP Primary osteoarthritis of left knee (Primary Dx); care home current use of opiate analgesic 05/14/2025 Travel 05/11/2025 Refill [facility] [address] [place] [address] Teresa Packer HELMET COVERER Primary osteoarthritis of left knee 05/09/2025 Refill [facility] [address] [place] [address] Audrey Calvo MD Primary osteoarthritis of knee, unspecified laterality 05/07/2025 Refill [facility] [address] [place] [address] Audrey Calvo MD Achilles tendinitis of right lower extremity 05/07/2025 Refill [facility] [address] [place], [place] [phone] Audrey Calvo MD Type 2 diabetes mellitus with hyperglycemia, without long-term current use of insulin ([facility]) 05/01/2025 Refill [facility] [address] [place] [address] Audrey Calvo MD Diabetic polyneuropathy associated with type 2 diabetes mellitus ([facility]) from Last 3 Months Immunizations Immunization Administration [...] Mass Index 33.37 07/30/2025 10:47 AM EST Plan of Treatment Upcoming Encounters Date Type Department Care Team ([facility] st Contact Info) Description 09/10/2025 11:00 AM EST Office Visit [facility] [address] [place] [phone] 09/24/2025 2:00 PM EST Telemedicine [facility] [address] [place] [address] Cristopher Lu, PharmD [address] [place], [place] [phone] 10/03/2025 11:45 AM EST Office Visit [facility] [address] [place] [address] [phone] Audrey Calvo MD [address] [place], [place] [phone] 11/28/2025 1:00 PM EDT Office Visit [facility] ADULT DENTAL [address] [place] [address] [phone] Liya Perez Health Maintenance Due Date Last Done Comments CT Colonography 1955 FIT DNA/Cologuard 1955 FIT 1955 FOBT 1955 Sigmoidoscopy 1955 Hepatitis C Screening 1975 RSV Patients and Patients Aged 60 years or older (1 - Risk 50-74 years 1-dose series) 2007 Zoster Vaccines (3 of 3) 02/17/2024 12/23/2023, 02/2019 Dental Oral Exam 01/25/2025 07/27/2024, , 03/06/2019, Additional history exists Dental Prophylaxis 01/25/2025 07/27/2024, 01/31/2019 COVID-19 Vaccine ( season) 2025 08/02/2022, 03/05/2021, 02/05/2021 Dental X-Ray: Bitewings 07/28/2025 07/27/20 24, 09/05/2019, 08/15/2018 Diabetes: Hemoglobin A1C 10/30/2025 025, 04/25/2025, 12/26/2024, Additional history exists SDOH Screening 12/26/2025 12/26/2024 Alcohol/Substance Use Screening 01/10/2026 01/10/2025 Mammogram 01/22/2026 01/22/2025, 12/20, 11/09/2022, Additional history exists Diabetes: Foot Exam 02/01/2026 02/01/2025, 02/01/2025, 02/01/2025, Additional history exists Diabetes: Urine Protein Screening 02/01/2026 02/01/2025, 03/02/2021, 08/08/2020 Eye Exam 03/14/2026 03/14/2025 Depression Screening 07/30/2026 07/30/2025, 07/30/20 25 Tobacco Screening 07/30/2026 07/30/2025 Lipid Panel 07/31/2026 07/31/2025, 06/20, 02/01/2025, Additional history exists Dental X-Ray: Full Mouth 07/28/2027 07/27/2024, 07/21 Colonoscopy 08/28/2029 08/28/2019 Colorectal Cancer Screening 08/28/2029 DTaP/Tdap/Td Vaccines (3 - Td or Tdap) 11/18/2032 11/18/2022, 05/25/2013, 01/23/2007 Influenza Vaccine Completed 07/16/2025, , 07/29/2023, Additional history exists Pneumococcal Vaccine: 50+ Years Completed 07/16/2025, 10/27/2021, 04/01/2017, Additional history exists HIB Vaccines Aged Out [...] on patient's age to complete this topic Goals Goal Patient Goal Type Associated Problems Recent Progress Patient-Stated? Author Help patients manage their type 2 diabetes Care Plan Help patients manage their type 2 diabetes Tom Le Weekly blood pressure task Care Plan Weekly [...] Patient has diabetic neuropathy No Bangura, Tom Procedures Procedure Name Priority Date/Time Associated Diagnosis Comments URINALYSIS, COMPLETE, WITH REFLEX TO CULTURE Routine 07/31/2025 2:11 PM EST LIPID PANEL WITH REFLEX TO DIRECT LDL Routine 07/31/2025 2:11 PM EST Cerebrovascular accident aborted by administration of thrombolytic agent ([facility]) ([facility]) Pure hypercholesterolemia POCT URINALYSIS DIPSTICK Routine 07/30/2025 12:01 PM EST UTI due to extended-spectrum beta lactamase (ESBL) producing Escherichia coli POCT GLUCOSE Routine 07/30/2025 10:49 AM EST Type 2 diabetes mellitus with hyperglycemia, without long-term current use of insulin ([facility]) POCT GLYCATED HEMOGLOBIN, TOTAL Routine 07/30/2025 10:49 AM EST Type 2 diabetes mellitus with hyperglycemia, without long-term current use of insulin ([facility]) CULTURE, URINE, ROUTINE Routine 07/15/2025 10:31 AM EDT MR BRAIN WO CONTRAST Routine 07/13/2025 1:35 [...] AM EDT Primary osteoarthritis of left knee care home current use of opiate analgesic ALBUMIN, RANDOM URINE W/CREATININE Routine 02/01/2025 8:20 AM EDT BI MAMMOGRAM SCREENING TOMOSYNTHESIS BILATERAL Routine 01/22/2025 9:00 AM EDT PROPHYLAXIS - ADULT Routine 07/27/2024 10:00 AM EST Dental plaque Dental calculus INTRAORAL - COMPLETE SERIES OF RADIOGRAPHIC IMAGES Routine 07/27/2024 10:00 AM EST PERIODIC ORAL EVALUATION - ESTABLISHED PATIENT Routine 07/27/2024 10:00 AM EST HM COLONOSCOPY Routine 08/28/2019 8:20 AM EST from Last 3 Months or Most Recently Relevant to Health Maintenance Results * (ABNORMAL) Urinalysis, Complete, with Reflex to Culture (07/31/2025 2:11 PM EST) Color Urine Yellow [facility] Appearance Urine Clear [facility] PH 5.5 5.0 - 9.0 [facility] Glucose Urine UA >=1000(A) Negative mg/dL [facility] Urine Blood Negative Negative [facility] Specific [place] - Urine >=1.030(H) 1.005 - 1.025 [facility] Urine Protein Negative Neg-Trace mg/dL [facility] Urine Ketones Negative Negative mg/dL [facility] Nitrite Urine Negative Negative [facility] Leukocyte Esterase Urine Trace(A) Negative [facility] RBC Urine 0-2 0 - 2 /HPF [facility] Urine WBC >50(A) 0 - 5 /HPF [facility] Urine Squamous Epithelial Cell 0-2 0 - 2 /HPF [facility] Urine Bacteria 4+ None Seen [facility] Hyaline Casts, Urine 0-2 0 - 2 /LPF [facility] 07/31/2025 2:11 PM EST 07/31/2025 4:00 PM EST Narrative [facility] - 07/31/2025 4:32 PM EST Urine, Clean Catch us Teresa Packer HELMET COVERER LAB URINE ORDERABLES Final Res ult [facility] [address] [place] [phone] * (ABNORMAL) POCT Urinalysis (07/30/2025 12:01 PM [...] Urine (Urine, Random) 07/30/2025 12:01 PM EST Audrey Calvo MD POINT OF CARE [...] specimen / Unknown 07/30/2025 10:49 AM EST Audrey Calvo MD POINT OF CARE TEST ENTER /EDIT ORDERABLES Final Result * Culture, Urine, Routine (07/15/2025 10:31 AM EDT) Urine Urine specimen obtained by clean catch procedure / Unknown 07/15/2025 10:31 AM EDT 07/15/2025 6:26 PM EDT Comment:[facility] Narrative [facility] - 07/18/2025 7:52 AM EDT Escherichia coli ESBL Note: NOTE: Extended-Spectrum Beta-Lactamase enzyme present Quant 10,000 to 50,000 cfu/mL Escherichia coli: Ampicillin >=32(R) Escherichia coli: Cefazolin (Urine) >=32(R) Escherichia coli: Cefepime 16(R) Escherichia coli: Ceftriaxone >=64(R) Escherichia coli: Ciprofloxacin >=4(R) Escherichia coli: Ertapenem <=0.12(S) Escherichia coli: Gentamicin <=1(S) Escherichia coli: Nitrofurantoin <=16(S) Escherichia coli: Trimethoprim/Sulfamethoxazole <=20(S) Specimen Source: Urine clean catch us Generic External Data Provider LAB MICROBIOLOGY - GENERAL ORDERABLES Final Result [facility] [address] [place] [phone] * MR Brain w/o Contrast (07/13/2025 1:35 PM EDT) Anatomical Region Laterality Modality Brain Magnetic Resonan ce 07/13/2025 1:35 PM EDT Narrative 07/13/2025 1:36 PM EDT [address] [address] Magnetic Resonance Report Signed Patient: Kalyani Ford I MR# : [id number] : 1955 Acct:[id number] Age/Sex: 70 / F ADM Date: 07/12/25 Loc: .ICU 261-[address]: Ramírez Ngo MD Ordering Physician: Ramírez Ngo MD Date of Service: 07/13/25 Procedure(s): MR head/brain wo con Accession Number(s): [id number] cc: Ramírez Ngo MD; Audrey Calvo MD [...] OV> 07/13/25 1336 DD/ 34 TD/TT: 07/13/251334 Spa Assistant Manager: Procedure Note Donotuseinterpreter, Image - 07/13/2025 [place] [phone] Magnetic Resonance Report Signed Patient: Kalyani Ford IMR# : [id number] : 1955cct:[id number] Age/Sex: 70 / FADM Date: 07/12/25 Loc: HO.ICU 261-[address]: Ramírez Nog MD Ordering Physician: Ramírez Ngo MD Date of Service: 07/13/25 Procedure(s): MR head/brain wo con Accession Number(s): [id number] cc: Ramírez Ngo MD; Audrey Calvo MD [...] OV> 07/13/25 1336 DD/ 34 TD/TT: 07/13/251334 Spa Assistant Manager: [facility] External Provider IMG MRI PROCEDURES Edited Result - Final * PROTHROMBIN TIME WHOLE BLD POC (07/12/2025 11:54 AM EDT) Protime 11.7 11.1 - 13.5 sec [facility] 07/12/2025 11:5 4 AM EDT 07/12/2025 12:00 PM EDT Generic External Data Provider LAB BLOOD ORDERAB LES Final Result Performing Organization Address [facility] de Phone Number [facility] [address] [place] [phone] * ~PT, ~INR - ANTI COAG CLINIC (07/12/2025 11:54 AM EDT) Pathologist [facility] Prothrombin Time INR 1.0 0.9 - 1.1 [facility] Comment:METER #: [id number] TERNATIONAL NORMALIZED RATIO (INR) REFERENCE RANGES Reference [...] ORDERAB LES Final Result Performing Organization Address [facility] Co de Phone Number [facility] [address] [place] [phone] * (ABNORMAL) Glucose, Whole Blood (07/12/2025 11:50 AM EDT) Pathologist [facility] Glucose, Whole Blood 207(H) 60 - 115 mg/dL [facility] Comment:METER #: [id number] 07/12/2025 11:5 0 AM EDT 07/12/2025 12:01 PM EDT Generic External Data Provider LAB BLOOD ORDERAB LES Final Result Performing Organization Address [facility] Co de Phone Number [facility] [address] [place] [phone] * High Sensitivity Troponin I (07/12/2025 11:42 AM EDT) [facility] TROPONIN I HIGH SENSITIVITY <2.7 <3.5 - 17.0 ng/L [facility] Comment:The Goss high sens itivity Troponin-I results should beused in conjunction with other diagnostic information suchas ECG, clinical observations and information, and patientsymptoms to aid in the diagnosis of [place]. 07/12/2025 11:4 2 AM EDT 07/12/2025 11:44 AM EDT Generic External Data Provider LAB BLOOD ORDERAB LES Final Result Performing Organization Address [facility] Co de Phone Number [facility] [address] [place] [phone] * (ABNORMAL) CBC auto differential (07/12/2025 11:42 AM EDT) [facility] White Blood Count 5.0 4.8 - 10.8 X10*3/uL [facility] Red Blood Count 5.23 4.20 - 5.50 X10*6/uL [facility] Hemoglobin 14.1 12.0 - 16.0 g/dl [facility] Hematocrit 42.9 37.0 - 47.0 % [facility] Mean Corpuscular Volume 82.0 80.0 - 98.0 fL [facility] Mean Corpuscular Hemoglobin 27.0 27.0 - 33.0 pg [facility] Mean Corpuscular HGB Conc 32.9 31.0 - 35.0 g/dl [facility] Red Cell Distribution Width 13.0 11.0 - 16.0 % [facility] Platelet Count 262 160 - 400 X10*3/uL [facility] Mean Platelet Volume 10.3 9.4 - 12.3 fL [facility] Neutrophils Percent Auto 45.0 45 - 73 % [facility] Imm Gran Pct Auto 0.2 0.0 - 0.4 % [facility] Lymphocytes Percent Auto 43.5(H) 20 - 40 % [facility] Monocytes Percent Auto 7.3 2 - 11 % [facility] Eosinophils Percent Auto 3.0 0 - 4 % [facility] Basophils Percent Auto 1.0 0 - 2 % [facility] NRBC Pct Auto 0.0 0.0 - 0.2 /100WBC [facility] Neutrophils Absolute Auto 2.2 2.0 - 8.3 x10*3/uL [facility] Imm Gran Abs Auto 0.01 0.00 - 0.03 X10*3/uL [facility] Lymphocytes Absolute Auto 2.2 1.2 - 4.9 X10*3/uL [facility] Monocytes Absolute Auto 0.4 0.1 - 1.2 X10*3/uL [facility] Eosinophils Absolute Auto 0.2 0.0 - 0.4 X10*3/uL [facility] LABS Basophils Absolute Auto 0.1 0.0 - 0.2 X10*3/uL [facility] NRBC Abs Auto 0.000 0.0 - 0.012 X10*3/uL [facility] 07/12/2025 11:4 2 AM EDT 07/12/2025 11:44 AM EDT us Generic External Data Provider LAB BLOOD ORDERAB LES Final Result [facility] [address] [place] [address] [phone] * (ABNORMAL) Partial Thromboplastin Time, Activated (APTT) (07/12/2025 11:42 AM EDT) Partial Thromboplastin Time 25.3(L) 26.7 - 34.1 SEC [facility] 07/12/2025 11:4 2 AM EDT 07/12/2025 11:44 AM EDT Generic External Data Provider LAB BLOOD ORDERAB LES Final Result Performing Organization Address [facility] de Phone Number [facility] [address] [place] [address] [phone] * (ABNORMAL) Prothrombin Time-INR (07/12/2025 11:42 AM EDT) Prothrombin Time 10.3(L) 10.9 - 12.4 SEC [facility] INTERNATIONAL NORM RATIO 0.9 0.9 - 1.1 [facility] Comment:INTERNATIONAL NORMAL IZED RATIO (INR) [...] ORDERAB LES Final Result Performing Organization Address [facility] Co de Phone Number [facility] [address] [place] [address] [phone] * (ABNORMAL) Lipid Panel, Standard (07/12/2025 11:42 AM EDT) Triglycerides 138 <150 mg/dL [facility] Comment:Desirable Triglyceri de: less than 150 mg/dLBorderline High Triglyceride 150-199 mg/dLHigh Triglyceride: 200-499 mg/dLVery High Triglyceride: greater than or equal to 5OO mg/dL Cholesterol 213(H) <200 mg/dL [facility] Comment:Desirable Cholestero l: less than 200 mg/dLBorderline High Cholesterol: 200-239 mg/dLHigh Cholesterol: greater than 239 mg/dL LDL Cholesterol Calculated 132(H) <100 mg/dL [facility] Comment:Desirable LDL: less than 100 mg/dLNear Optimal/Above Optimal LDL: 110- 129 mg/dLBorderline High LDL: 130-159 mg/dLHigh LDL: 160-189 mg/dLVery High LDL: greater than or equal to 190 mg/dL HDL Cholesterol 54 >40 mg/dL [facility] Comment:Desirable HDL: great er than 40 mg/dL Note: This HDL assay may give artificially low results in patients with liver disease. 07/12/2025 11:4 2 AM EDT 07/12/2025 11:44 AM EDT us Generic External Data Provider LAB BLOOD ORDERAB LES Final Result Performing Organization Address City/State/[facility] Co de Phone Number [facility] [address] [place] [address] [phone] * (ABNORMAL) Basic Metabolic Panel (07/12/2025 11:42 AM EDT) Sodium 138 135 - 145 mmol/L [facility] Potassium 4.3 3.3 - 5.1 mmol/L [facility] Comment:Mild Hemolysis.Inter pret result with caution Chloride 103 96 - 108 mmol/L [facility] Carbon Dioxide 27 22 - 29 mmol/L [facility] Anion Gap 12 12 - 20 [facility] Urea Nitrogen (BUN) 14 9 - 16 mg/dL [facility] Creatinine, Serum 0.81 0.5 - 1.4 mg/dL [facility] Creatinine Clr Calc Pharmacy 72.7 [facility] Comment:Provided height and weight: 167.64 cm,84.368 kg.eGFR (calculated from the MDRD study equation) and eCrCl(calculated from the Cockcroft-Gault equation) are based ondifferent parameters and may not yield comparable results.If eCrCl result is absurd, please check patient'sheight/weight. Estimated Glomerular Filt Rate >60 [facility] Comment:Chronic Kidney Disea se: Estimated GFR < 60 mL/min/1.05r2Relbpb Kidney Disease: Estimated GFR < 15 mL/min/1.73m2 Glucose 224(H) 60 - 115 mg/dL [facility] Calcium 9.3 8.4 - 10.2 mg/dL [facility] 07/12/2025 11:4 2 AM EDT 07/12/2025 11:44 AM EDT us Generic External Data Provider LAB BLOOD ORDERAB LES Final Result Performing Organization Address City/State/[facility] Co de Phone Number [facility] [address] [place] [address] [phone] * CTA Head Stroke w/ and w/o Contrast (07/12/2025 11:40 AM EDT) Anatomical Region Laterality Modality Computed Tomogra phy 07/12/2025 11:4 0 AM EDT Narrative 07/12/2025 12:02 PM EDT [address] [address] [address] Scan Report Signed Patient: Kalyani Ford I MR# : [id number] : 1955 Acct:[id number] Age/Sex: 70 / F ADM Date: 07/12/25 Loc: HO.ED Attending Dr: Ordering Physician: Prateek De Leon MD Date of Service: 07/12/25 Procedure(s): CT angio head neck STROKE Accession Number(s): [id number] cc: Audrey Calvo MD; Prateek De Leon MD Report Number: [id number]: Total DLP = 662.00 mGy-cm Reason for [...] cerebellar arteries are patent. No gross abnormality. take out waiter: Normal patency. No focal stenosis. No abrupt [...] 07/12/25 1159 DD/ 1140 TD/TT: 07/12/25 1154 Spa Assistant Manager: Procedure Note Donotuseinterpreter, Image - 07/12/[address] [place] [address] [address] Scan Report Signed Patient: Kalyani Ford IMR# : [id number] : 1955cct:[id number] Age/Sex: 70 / FADM Date: 07/12/25 Loc: HO.ED Attending Dr: Ordering Physician: Prateek De Leon MD Date of Service: 07/12/25 Procedure(s): CT angio head neck STROKE Accession Number(s): [id number] cc: Audrey Calvo MD; Prateek De Leon MD Report Number: [id number]: Total DLP = 662.00 mGy-cm Reason for [...] cerebellar arteries are patent. No gross abnormality. take out waiter: Normal patency. No focal stenosis. No abrupt [...] 07/12/25 1159 DD/ 1140 TD/TT: 07/12/25 1154 Spa Assistant Manager: [facility] External Provider IMG CT PROCEDURES Final Result * CT Head Stroke w/o Contrast (07/12/2025 11:37 AM EDT) Anatomical Region Laterality Modality Computed Tomogra phy 07/12/2025 11:3 7 AM EDT Narrative 07/12/2025 12:02 PM EDT [place] [address] CT Scan Report Signed Patient: Kalyani Ford I MR# : [id number] : 1955 Acct:[id number] Age/Sex: 70 / F ADM Date: 07/12/25 Loc: HO.ED Attending Dr: Ordering Physician: Prateek De Leon MD Date of Service: 07/12/25 Procedure(s): CT head for STROKE Accession Number(s): [id number] cc: Audrey Calvo MD; Prateek De Leon MD Report Number: [id number]: Total DLP = 658.00 mGy-cm Reason for [...] cerebellar arteries are patent. No gross abnormality. take out waiter: Normal patency. No focal stenosis. No abrupt [...] 07/12/25 1159 DD/ 1137 TD/TT: 07/12/25 1142 Spa Assistant Manager: Procedure Note Donotuseinterpreter, Image - 07/12/[address] [place] [address] [address] Scan Report Signed Patient: Kalyani Ford [facility]# : [id number] : 1955cct:[id number] Age/Sex: 70 / FADM Date: 07/12/25 Loc: HO.ED Attending Dr: Ordering Physician: Prateek De Leon MD Date of Service: 07/12/25 Procedure(s): CT head for STROKE Accession Number(s): [id number] cc: Audrey Calvo MD; Prateek De Leon MD Report Number: [id number]: Total DLP = 658.00 mGy-cm Reason for [...] cerebellar arteries are patent. No gross abnormality. take out waiter: Normal patency. No focal stenosis. No abrupt [...] 07/12/25 1159 DD/ 1137 TD/TT: 07/12/25 1142 Spa Assistant Manager: [facility] External Provider IMG CT PROCEDURES Final Result [...] - 05/14/2025 11:32 AM EDT .UTOX cup Lot#[id number] Exp. 06/25/26 Internal Pass Control Teresa Packer HELMET COVERER POINT OF CARE TEST ENTER/EDIT ORDERABLES Final Result * (ABNORMAL) Albumin, Random Urine W/Creatinine (02/01/2025 8:20 AM EDT) Creatinine, Urine 227.49 mg/dL [facility] Microalbumin Urine 188.0 mg/L [facility] Microalbum Creatinine Ratio Ur 82.6(H) <30 ug/mg cr [facility] Comment:Albumin/Creatinine R atio Reference Ranges: Normal: < 30 ug/mg creatinine Microalbuminuria: 30 - 300 ug/mg creatinineClinical Albuminuria: > 300 ug/mg creatinine 02/01/2025 8:20 AM EDT 02/01/2025 10:57 AM EDT Audrey Calvo MD LAB URINE ORDERABLES Fin al Result [facility] [address] [place] [address] [phone] * BI Mammogram Screening Tomosynthesis Bilateral (01/22/2025 9:00 AM EDT) Anatomical Region Laterality Modality Breast Bilateral Mammography 01/22/2025 9:00 AM EDT Narrative 01/27/2025 9:44 PM EDT [address] [place] [address] Mammography Report Signed Patient: Kalyani Rogers I MR#: [id number] 81 : 1955 Acct:[id number] Age/Sex: 69 / F ADM Date: 01/22/25 Loc: HO.MAMMO Attending Dr: Audrey Calvo MD Ordering Physician: Audrey Calvo MD Results: 1Ne gative Date of Service: 01/22/25 Follow Up: 1 Year From [facility] Mammogram Procedure(s): MM tomosynthesis screening BI Accession Number(s): [id number] cc: Audrey Calvo MD; Name,Srinivas COOK EXAMINATION: [...] DO in OV> 01/27/252140 DD/ 9 TD/TT: 01/22/25921 Spa Assistant Manager: Procedure Note Donotuseinterpreter, Image - 01/27/2025 [facility] [address] [place] [address] Mammography Report Signed Patient: Kalyani Rogers IMR#: [id number] [birth year] : 1955cct:[id number] Age/Sex: 69 / FADM Date: 01/22/25 Loc: MAMMO Attending Dr: Audrey Calvo MD Ordering Physician: Audrey Calvo MDResults: 1Ne gative Date of Service: 01/22/25Follow Up: 1 Year From Orig inal Mammogram Procedure(s): MM tomosynthesis screening BI Accession Number(s): [id number] cc: Audrey Calvo MD; Name,Srinivas COOK EXAMINATION: [...] Copeland DO in OV> 01/27/25 214 DD/ 0900 TD/TT: 01/22/25 0922 Spa Assistant Manager: us Audrey Calvo MD IMG BI PROCEDURES Final Result * Hm Colonoscopy (08/28/2019 8:20 AM EST) us Historical Provider HEALTH MAINTENANCE Final Result from Last 3 Months or Most Recently Relevant to Health Maintenance Additional Health Concerns Active Problems Noted Date [...] neuropathy 07/31/2025 Patient has diabetic neuropathy 07/31/[address] [facility] Member Subscriber Plan / Payer (Ef fective 2018-Present) Name:Kalyani Rogers Relation to Subscriber:Self Name:Kalyani Rogers Payer ID:[id number] (NAIC) Group ID:[id number] Type:Not on file Address: [address] [employer] D[employer]) [place] [phone] [facility] Care Teams Mechanical Test Engineer Relationship Specialty Start Date End Date Audrey Calvo MD [address] [place] [phone] PCP - General Family Medicine 05/09/17 [facility] 07/16/25
--- OUTSIDE RECORDS SUMMARY | 2025-07-31 17:21 | XMS_ITS | Encounter Summary ---
Author Organization [email or web address] Address [address] [place] [address] 7 [place] [address] Care Team Providers Care Structural Biologist Name Role Phone Audrey Calvo MD Primary Care Provider + Reason for Visit * Reason Onset Date Comments FYI 04/15/2025 Encounter Details Date Type Department Care Team ([facility] st Contact Info) Description 04/15/2025 Telephone [facility]INE [address] [place] [address] Audrey Calvo MD [address] [place] [address] Social History Tobacco Use Types Packs/Day Years [...] the past 12 months, has t he [employer], gas, oil or water company threatened to [...] AM EDT Tc from Dr. Hess with [employer] wanted to report that she visited pt today and she had a slightly elevated B/P Sittin/95 Rate: 79 Standin/97 Rate: 81 documented in this encounter Plan of Treatment Upcoming Encounters Date Type Department Care Team (Late st Contact Info) Description 09/10/2025 11:00 AM EST Office Visit [facility] [address] [place] [address] [phone] 09/24/2025 2:00 PM EST Telemedicine [facility] [address] [place] [phone] Cristopher Lu, MayankD [address] [place] [phone] 10/03/2025 11:45 AM EST Office Visit [facility] [address] [place] [address] [phone] Audrey Calvo MD [address] [place] [address] [phone] 11/28/2025 1:00 PM EDT Office Visit [facility] ADULT DENTAL [address] [place] [address] [phone] Liya Perez documented as of this encounter Visit Diagnoses Not on filedocumented in this encounter Additional Health Concerns Assessment Noted Time PHQ-9 Depression Total Score: 0 12/27/19 1:57 PM EDT documented as of this encounter Care Teams Structural Biologist Relationship Specialty Start Date End Date Audrey Calvo MD [address] [place] [phone] PCP - General Family Medicine 05/09/17 [facility] 07/16/25 documented as of this encounter
--- OUTSIDE RECORDS SUMMARY | 2025-07-31 17:21 | XMS_ITS | Encounter Summary ---
Author Organization [employer] Address [address] [place] [address] [address] [place] [address] Care Team Providers Care Senior Product Engineer Name Role Phone Audrey Calvo MD Primary Care Provider + Reason for Referral * Consultation (Routine) - Canceled Specialty Diagnoses / Procedures Referred By Contac t Referred To Contact Pharmacy Diagnoses Primary hypertension Audrey Calvo MD [address] [place] [address] Phone: tel: fax: Referral ID Status Reason Start Date Expiration Date V isits Requested Visits Authorized [id number] Canceled Continuity of Care 01/10/2025 01/10/2026 6 6 Encounter Details Date Type Department Care Team (Late st Contact Info) Description 01/09/2025 Orders Only [facility] [address] [place] [address] [phone] Audrey Calvo MD [address] [place], [place] [phone] Primary hypertension (Primary Dx) Social History Tobacco [...] AM EST Office Visit [facility] [address] [place] [phone] 09/24/2025 2:00 PM EST Telemedicine [facility] [address] [place] [phone] Cristopher Lu, PharmD [address] [place] [address] 10/03/2025 11:45 AM EST Office Visit [facility] [address] [place], [place] [phone] Audrey Calvo MD [address] [place], [place] [phone] 11/28/2025 1:00 PM EDT Office Visit [facility] ADULT DENTAL [address] [place], [place] [phone] Liya Perez Scheduled Referrals Name Type Priority [...] AM EDT Narrative 01/27/2025 9:44 PM EDT [facility]'s [address] [place] [address] Mammography Report Signed Patient: Kalyani Rogers I MR#: [id number] 81 : 1955 Acct:[id number] Age/Sex: 69 / F ADM Date: 01/22/25 Loc: HO.MAMMO Attending Dr: Audrey Calvo MD Ordering Physician: Audrey Calvo MD Results: 1Ne gative Date of Service: 01/22/25 Follow Up: 1 Year From Orig inal Mammogram Procedure(s): MM tomosynthesis screening BI Accession Number(s): [id number] cc: Audrey Calvo MD; Name,Srinivas COOK EXAMINATION: [...] OV> 01/27/252140 DD/ 09 TD/TT: 01/22/25 09 Rn Teacher: Procedure Note Donotuseinterpreter, Image - 01/27/2025 [facility] [address] [place] [address] Mammography Report Signed Patient: Kalyani Rogers [facility]#: [id number] [birth year] : 1955cct:[id number] Age/Sex: 69 / FADM Date: 01/22/25 Loc: .MAMMO Attending Dr: Audrey Calvo MD Ordering Physician: Audrey Calvo MDResults: 1Ne gative Date of Service: 01/22/25Follow Up: 1 Year From [facility] Mammogram Procedure(s): MM tomosynthesis screening BI Accession Number(s): [id number] cc: Audrey Calvo MD; Name,Srinivas COOK EXAMINATION: [...] in OV> 01/27/252140 DD/ 9 TD/TT: 01/22/25921 Rn Teacher: Audrey Calvo MD IMG BI PROCEDURES Final Result documented in this encounter Visit Diagnoses Diagnosis Primary hypertension- Primary Unspecified essential hypertension documented in this encounter Additional Health Concerns Assessment Noted Time PHQ-9 Depression Total Score: 0 12/27/19 1:57 PM EDT documented as of this encounter Care Teams Senior Product Engineer Relationship Specialty Start Date End Date Audrey Calvo MD [address] [place] [phone] PCP - General Family Medicine 05/09/17 [facility] 07/16/25 documented as of this encounter
--- OUTSIDE RECORDS SUMMARY | 2025-07-31 17:21 | XMS_ITS | Encounter Summary ---
Author Organization [employer] Address [address] [facility] 7t [place] [address] Care Team Providers Care Posting Specialist Name Role Phone Audrey Calvo MD Primary Care Provider + Encounter Details Date Type Department Care Team ([facility] st Contact Info) Description 02/15/2024 Orders Only [facility] MEDICINE [address] [place], [place] [phone] Provider, MD [place] Social History Tobacco Use [...] AM EST Office Visit [facility] MEDICINE [address] [place] [phone] 09/24/2025 2:00 PM EST Telemedicine [facility] [address] [place] [phone] Cristopher Lu, PharmD [address] [place] [phone] 10/03/2025 11:45 AM EST Office Visit [facility] MEDICINE [address] [place] [phone] Audrey Calvo MD [address] [place] [address] [phone] 11/28/2025 1:00 PM EDT Office Visit [facility] ADULT DENTAL [address] [place] [phone] Liya Perez documented as of this encounter [...] documented as of this encounter Care Teams Posting Specialist Relationship Specialty Start Date End Date Audrey Calvo MD [address] [place] [address] PCP - General Family Medicine 05/09/17 [facility] 07/16/25 documented as of this encounter
--- OUTSIDE RECORDS SUMMARY | 2025-07-31 17:21 | XMS_ITS | Encounter Summary ---
Author Organization [employer] Address [address] [facility] 7t [place] [address] Care Team Providers Care Media Marketing Manager Name Role Phone Audrey Calvo MD Primary Care Provider + Encounter Details Date Type Department Care Team ([facility] st Contact Info) Description 11/22/2022 Orders Only [facility] [address] [place] [address] Emi Gill LPN Social History Tobacco Use [...] Description 09/10/2025 11:00 AM EST Office Visit [facility] MED[facility]INE [address] [place] [phone] 09/24/2025 2:00 PM EST Telemedicine [address] [phone] Cristopher Lu, Kelli [address] [place] [phone] 10/03/2025 11:45 AM EST Office Visit [address] [phone] Audrey Calvo MD [address] [place] [address] [phone] 11/28/2025 1:00 PM EDT Office Visit [facility] ADULT DENTAL [address] [place] [phone] Liya Perez documented as of this encounter Procedures Procedure Name Priority Date/Time Associated Diagnosis Comments BD DEXA AXIAL Routine 12/07/2022 11:21 AM EDT documented in this encounter Results * BD DEXA Axial (12/07/2022 11:21 AM EDT) Anatomical Region Laterality Modality Body Radiographic Farheen ging 12/07/2022 11:2 1 AM EDT Narrative 12/08/2022 7:44 AM EDT [facility] [address] [place] [address] Mammography Report Signed Patient: Kalyani Rogers I MR#: [id number] 81 : 1955 Acct:[id number] Age/Sex: 67 / F ADM Date: 12/07/22 Loc: HO.MAMMO Attending Dr: Audrey Calvo MD Ordering Physician: Audrey Calvo MD Results: Date of Service: 12/07/22 Follow Up: Procedure(s): XR DEXA axial skeleton Accession Number(s): [id number] cc: Audrey Calvo MD EXAMINATION: BONE DENSITOMETRY CLINICAL INDICATION: Screening. COMPARISON: Previous BD dated 10/14/2017 and baseline BD dated 11/13/2013. TECHNIQUE: Using a Ever[employer] DXA System (software version: 13.1) manufactured by [employer], dual-energy x-ray absorptiometry was performed of the [...] in OV> 12/08/22 0741 DD/ 1121 TD/TT: Flow Worker: LEONARDO Procedure Note Donotuseinterpreter, Image - 12/08/2022 [facility] [address] [place] [address] Mammography Report Signed Patient: Kalyani Rogers [facility]#: [id number] [birth year] : 7Acct:[id number] Age/Sex: 67 / FADM Date: 12/07/22 Loc: HORACE.MAMMO Attending Dr: Audrey Calvo MD Ordering Physician: Audrey Calvo MDResults: Date of Service: 12/07/22Follow Up: Procedure(s): XR DEXA axial skeleton Accession Number(s): [id number] cc: Audrey Calvo MD EXAMINATION: BONE DENSITOMETRY CLINICAL INDICATION: Screening. COMPARISON: Previous BD dated 10/14/2017 and baseline BD dated 11/13/2013. TECHNIQUE: Using a [employer]gram DXA System (software version: 13.1) manufactured by [employer], dual-energy x-ray absorptiometry was performed of the [...] in OV> 12/08/22 0741 DD/ 1121 TD/TT: Flow Worker: PATTERSON [facility] External Provider IMG DXA PROCEDURES Final Result documented in this encounter Visit Diagnoses Not on filedocumented in this encounter Care Teams Media Marketing Manager Relationship Specialty Start Date End Date Audrey Calvo MD [address] [place] [phone] PCP - General Family Medicine 05/09/17 [facility] 07/16/25 documented as of this encounter
--- OUTSIDE RECORDS SUMMARY | 2025-07-31 17:21 | XMS_ITS | Encounter Summary ---
Author Organization [employer] Address [address] [facility] 7t [place] [address] Care Team Providers Care Hogshead Packer Name Role Phone Audrey Calvo MD Primary Care Provider + Reason for Visit * Reason Comments Med Refill Encounter Details Date Type Department Care Team ([facility] st Contact Info) Description 01/09/2025 Refill [facility] [address] [place], [place] [phone] Audrey Calvo MD [address] [place] [address] Achilles tendinitis of right lower extremity Social [...] Description 09/10/2025 11:00 AM EST Office Visit [facility] [address] [place] [phone] 09/24/2025 2:00 PM EST Telemedicine [facility] [address] [place] [phone] Cristopher Lu, PharmD [address] [place] [address] 10/03/2025 11:45 AM EST Office Visit [facility] [address] [place] [phone] Audrey Calvo MD [address] [place] [phone] 11/28/2025 1:00 PM EDT Office Visit [facility] ADULT DENTAL [address] [place] [phone] Liya Perez documented as of this encounter Visit Diagnoses Diagnosis Achilles tendinitis of right lower extremity documented in this encounter Additional Health Concerns Assessment Noted Time PHQ-9 Depression Total Score: 0 12/27/19 1:57 PM EDT documented as of this encounter Care Teams Hogshead Packer Relationship Specialty Start Date End Date Audrey Calvo MD [address] [place] [address] PCP - General Family Medicine 05/09/17 [facility] 07/16/25 documented as of this encounter
--- OUTSIDE RECORDS SUMMARY | 2025-07-31 17:21 | XMS_ITS | Encounter Summary ---
Author Organization [employer] Address [address] [place] [address] [address] [address] Care Team Providers Care B2B Managed Service Sales Exec Name Role Phone Audrey Calvo MD Primary Care Provider + Reason for Visit * Reason Comments Med Refill Encounter Details Date Type Department Care Team ([facility] Contact Info) Description 03/31/2023 Refill [facility] [address] [place] [phone] Audrey Calvo MD [address] [place] [phone] HTN (hypertension), benign Social History Tobacco Use [...] Upcoming Encounters Date Type Department Care Team ([facility] Contact Info) Description 09/10/2025 11:00 AM EST Office Visit [facility] [address] [place] [address] [phone] 09/24/2025 2:00 PM EST Telemedicine [facility] [address] [place] [phone] Cristopher Lu, MayankD [address] [place] [phone] 10/03/2025 11:45 AM EST Office Visit [facility] [address] [place] [phone] Audrey Calvo MD [address] [place] [address] [phone] 11/28/2025 1:00 PM EDT Office Visit [facility] [address] [place] [address] [phone] Liya Perez documented as of this encounter Visit Diagnoses Diagnosis HTN (hypertension), benign Essential hypertension, benign documented in this encounter Additional Health Concerns Assessment Noted Time PHQ-9 Depression Total Score: 0 12/23/19 23 9:08 AM EDT documented as of this encounter Care Teams B2B Managed Service Sales Exec Relationship Specialty Start Date End Date Audrey Calvo MD [address] [place] [phone] PCP - General Family Medicine 05/09/17 [facility] 07/16/25 documented as of this encounter
--- OUTSIDE RECORDS SUMMARY | 2025-07-31 17:21 | XMS_ITS | Encounter Summary ---
Author Organization [employer] Address [address] [facility] 7 [place] [address] Care Team Providers Care Handbag Frames Inspector Name Role Phone Audrey Calvo MD Primary Care Provider + Reason for Visit * Reason Comments Med Refill Encounter Details Date Type Department Care Team ([facility] st Contact Info) Description 05/01/2025 Refill [facility] [address] [place] [address] Audrey Calvo MD [address] [place] [address] Diabetic polyneuropathy associated with type 2 diabetes [...] Description 09/10/2025 11:00 AM EST Office Visit [facility] [address] [place] [phone] 09/24/2025 2:00 PM EST Telemedicine [facility] [address] [place] [phone] Cristopher Lu, PharmD [address] [place] [phone] 10/03/2025 11:45 AM EST Office Visit [facility] [address] [place] [phone] Audrey Calvo MD [address] [place] [phone] 11/28/2025 1:00 PM EDT Office Visit [facility] [address] [place] [phone] Liya Perez documented as of this encounter Visit Diagnoses Diagnosis Diabetic polyneuropathy associated with type 2 diabetes mellitus (HCC) documented in this encounter Additional Health Concerns Assessment Noted Time PHQ-9 Depression Total Score: 0 12/27/19 1:57 PM EDT documented as of this encounter Care Teams Handbag Frames Inspector Relationship Specialty Start Date End Date Audrey Calvo MD [address] [place] [address] PCP - General Family Medicine 05/09/17 [facility] 07/16/25 documented as of this encounter
[2025-07-31 17:48] LABS: Reflex LDLD? No
[2025-08-01 04:08] LABS: ~HepC Num1 0.14 S/CO (0.00-0.79); ~Hepatitis C Antibody Nonreactive (Nonreactive)
== END 2025-07-31 14:05 | disposition home or self-care (01) ==
LOC: HO.HHCL 14:04
PROVIDERS: Registered Nurse; PCP Internal Medicine; Visit Provider Internal Medicine
DX: E11.65 Type 2 diabetes mellitus with hyperglycemia (principal); I63.9 Cerebral infarction, unspecified; E78.00 Pure hypercholesterolemia, unspecified; Z11.59 Encounter for screening for other viral diseases
CPT/HCPCS: 36415; 80061; 81001; 86803; 87086; 87088; 87186